=== PATIENT | female | born 1955 | race Caucasian/White ===

== ENCOUNTER → 2017-04-20 08:15 | Outpatient (CLI) | payer MEDICARE, SELFPAY ==
[2017-04-20 09:03] LABS: Basophils % 0.8 % (0.1-2.0); Eosinophils # 0.4 K/mm3 (0.0-0.4); Eosinophils % 9.9 % (0.1-12.0); Hematocrit 36.9 % (37.0-47.0); Hemoglobin 10.9 g/dL (12.2-16.2); Lymphocytes % 27.8 K/mm3 (10-50); Mean Corpuscular HGB Conc 29.5 g/dL (31.8-35.4); Mean Corpuscular Hemoglobin 24.1 pg (27.0-31.2); Mean Corpuscular Volume 81.8 fl (81-99); Mean Platelet Volume 8.9 fl (7.4-10.4); Monocytes # 0.3 K/mm3 (0.1-1.0); Monocytes % 7.5 % (1.7-9.3); Neutrophils % 53.8 % (37.0-80.0); Platelet Count 238 K/mm3 (142-424); Red Blood Count 4.51 M/mm3 (4.20-5.40); White Blood Count 3.7 K/mm3 (4.8-10.8)
[2017-04-20 10:44] LABS: Alanine Aminotransferase 67 U/L (12-78); Albumin Level 3.6 gm/dL (3.4-5.0); Albumin/Globulin Ratio 1.1 (1.1-1.8); Alkaline Phosphatase 62 U/L (46-116); Anion Gap 12.5 mEq/L (5-15); Aspartate Amino Transferase 64 U/L (15-37); Bilirubin,Total 0.3 mg/dL (0.2-1.0); Blood Urea Nitrogen 13 mg/dL (7-18); Calcium 8.8 mg/dL (8.5-10.1); Carbon Dioxide 28 mmol/L (21.0-32.0); Chloride 108 mmol/L (98-107); Cholesterol 234 mg/dL (140-200); Creatinine,Serum 0.96 mg/dL (0.55-1.02); Estimated Glomerular Filt Rate 59 ml/min (>60); GFR (African American) 71 ML/MIN (>60); Globulin 3.3 gm/dl (1.3-3.2); Glucose 134 mg/dL (74-106); HDL Cholesterol 47 mg/dL (29-89); LDL Cholesterol 165 mg/dL (0-130); Potassium 4.5 mmoL/L (3.5-5.1); Sodium 144 mmol/L (136-145); Total Protein,Serum 6.9 gm/dL (6.4-8.2); Triglycerides 108 mg/dL (30-200); VLDL Cholesterol 22 mg/dL (0-40)
== END ==
PROVIDERS: PCP Nurse Practitioner Family; Visit Provider Nurse Practitioner Family
DX: E78.5 Hyperlipidemia, unspecified (principal); N18.2 Chronic kidney disease, stage 2 (mild); D50.9 Iron deficiency anemia, unspecified
CPT/HCPCS: 36415; 80053; 80061; 85025

== ENCOUNTER 2017-05-12 10:55 | Outpatient (CLI) | payer MEDICARE, SELFPAY ==
[2017-05-12 12:27] LABS: INR 13.53 (0.9-1.1)
[2017-05-12 13:01] VITALS: BMI 34.7
== END 2017-05-12 13:15 | disposition home or self-care (01) ==
LOC: ACC 10:56 → INF 12:51
PROVIDERS: PCP Internal Medicine Adolescent Medicine; Visit Provider Internal Medicine Adolescent Medicine
DX: Z79.01 Long term (current) use of anticoagulants (principal); Z51.81 Encounter for therapeutic drug level monitoring
CPT/HCPCS: 36415; 85610; 96372

== ENCOUNTER 2017-05-15 10:49 | Outpatient (CLI) | payer MEDICARE, SELFPAY ==
[2017-05-15 15:39] LABS: PHA INR Fingerstick 1.6 (0.9-1.1)
== END 2017-05-15 16:01 | disposition home or self-care (01) ==
LOC: ACC 10:50
PROVIDERS: Family Provider Internal Medicine Adolescent Medicine; PCP Internal Medicine Adolescent Medicine; Visit Provider Internal Medicine Adolescent Medicine
DX: Z79.01 Long term (current) use of anticoagulants (principal); Z51.81 Encounter for therapeutic drug level monitoring
CPT/HCPCS: 85610; 99211; G0463

== ENCOUNTER → 2017-09-19 20:13 | Outpatient (CLI) | payer MEDICARE, SELFPAY | PROVIDERS: PCP Nurse Practitioner Family; Visit Provider Nurse Practitioner Family | DX: G47.33 Obstructive sleep apnea (adult) (pediatric) (principal); I10 Essential (primary) hypertension; R40.0 Somnolence; E66.9 Obesity, unspecified | CPT/HCPCS: 95810 ==

== ENCOUNTER 2017-11-09 08:12 | Outpatient (CLI) | payer MEDICARE, SELFPAY ==
[2017-11-09 10:35] LABS: PHA INR Fingerstick 2.1 (0.9-1.1)
== END 2017-11-09 10:38 | disposition home or self-care (01) ==
LOC: ACC 08:13
PROVIDERS: PCP Internal Medicine Adolescent Medicine; Visit Provider Internal Medicine Adolescent Medicine
DX: Z79.01 Long term (current) use of anticoagulants (principal); Z51.81 Encounter for therapeutic drug level monitoring
CPT/HCPCS: 85610; 99211; G0463

== ENCOUNTER 2017-12-06 09:25 | Outpatient (CLI) | payer MEDICARE, SELFPAY ==
[2017-12-06 10:19] LABS: PHA INR Fingerstick 2.2 (0.9-1.1)
== END 2017-12-06 10:25 | disposition home or self-care (01) ==
LOC: ACC 09:26
PROVIDERS: PCP Internal Medicine Adolescent Medicine; Visit Provider Internal Medicine Adolescent Medicine
DX: Z79.01 Long term (current) use of anticoagulants (principal)
CPT/HCPCS: 85610; 99211; G0463

== ENCOUNTER → 2017-12-20 07:55 | Outpatient (CLI) | payer MEDICARE, SELFPAY ==
[2017-12-20 08:13] LABS: Basophils # 0.1 K/mm3 (0-0.2); Basophils % 1.2 % (0.1-2.0); Eosinophils # 0.4 K/mm3 (0.0-0.4); Eosinophils % 9.3 % (0.1-12.0); Hematocrit 37.5 % (37.0-47.0); Hemoglobin 11.5 g/dL (12.2-16.2); Lymphocytes # 1.2 K/mm3 (0.7-4.5); Lymphocytes % 29.2 K/mm3 (10-50); Mean Corpuscular HGB Conc 30.5 g/dL (31.8-35.4); Mean Corpuscular Hemoglobin 24.7 pg (27.0-31.2); Mean Corpuscular Volume 80.9 fl (81-99); Mean Platelet Volume 8.8 fl (7.4-10.4); Monocytes # 0.3 K/mm3 (0.1-1.0); Monocytes % 7.8 % (1.7-9.3); Neutrophils # 2.2 K/mm3 (1.8-7.8); Neutrophils % 52.5 % (37.0-80.0); Platelet Count 247 K/mm3 (142-424); Red Blood Count 4.64 M/mm3 (4.20-5.40); Red Cell Distribution Width 15.1 % (11.5-17.5); White Blood Count 4.2 K/mm3 (4.8-10.8)
[2017-12-20 08:19] LABS: Creatinine,Urine Random 206 mg/dL (20-320)
[2017-12-20 08:34] LABS: Hemoglobin A1C 7.9 % (0.0-7.0)
[2017-12-20 10:40] LABS: Alanine Aminotransferase 73 U/L (12-78); Albumin Level 3.6 gm/dL (3.4-5.0); Albumin/Globulin Ratio 1.1 (1.1-1.8); Alkaline Phosphatase 73 U/L (46-116); Anion Gap 13.7 mEq/L (5-15); Aspartate Amino Transferase 63 U/L (15-37); Bilirubin,Total 0.2 mg/dL (0.2-1.0); Blood Urea Nitrogen 12 mg/dL (7-18); Carbon Dioxide 26 mmol/L (21.0-32.0); Chloride 109 mmol/L (98-107); Chol/HDL Ratio 5.2 (1-3.5); Cholesterol 225 mg/dL (140-200); Creatinine,Serum 1.09 mg/dL (0.55-1.02); Estimated Glomerular Filt Rate 51 ml/min (>60); Ferritin 17 ng/mL (8-388); GFR (African American) 61 ML/MIN (>60); Globulin 3.4 gm/dl (1.3-3.2); Glucose 162 mg/dL (74-106); HDL Cholesterol 43 mg/dL (29-89); LDL Cholesterol 156 mg/dL (0-130); Potassium 4.7 mmoL/L (3.5-5.1); Sodium 144 mmol/L (136-145); Triglycerides 129 mg/dL (30-200); VLDL Cholesterol 26 mg/dL (0-40)
[2017-12-22 07:03] LABS: Vitamin B12 746 pg/mL (232-1245)
[2017-12-22 07:04] LABS: Vitamin D 25 Hydroxy 29.4 ng/mL (30.0-100.0)
== END ==
PROVIDERS: PCP Nurse Practitioner Family; Visit Provider Nurse Practitioner Family
DX: E11.22 Type 2 diabetes mellitus with diabetic chronic kidney disease (principal); E78.5 Hyperlipidemia, unspecified; E53.8 Deficiency of other specified B group vitamins; N18.2 Chronic kidney disease, stage 2 (mild); D50.9 Iron deficiency anemia, unspecified
CPT/HCPCS: 36415; 80053; 80061; 82043; 82570; 82607; 82652; 82728; 83036; 85025

== ENCOUNTER → 2017-12-26 08:09 | Outpatient (CLI) | payer MEDICARE, SELFPAY ==
--- NOTE | 2017-12-26 08:15 | XR_ITS ---
XR DEXA axial skeleton HISTORY: ITS.REASON: POST MENOPAUSAL ORDERING PHYSICIAN: Sierra Jerry PATIENT AGE: 62 years COMPARISON: None FINDINGS: The BMD measured at the Right femoral neck is 0.744 g/cm squared with a T score of -2.1. This is considered Osteopenic according to the World Health Organization criteria. Fracture risk is Moderate. Treatment is advised. IMPRESSION: Osteopenia with moderate fracture risk. Treatment suggested. Recommend follow exam December 2019
--- NOTE | 2017-12-26 08:15 | FL_ITS ---
FL upper GI esophagus w/o HISTORY: Dysphagia ORDERING PHYSICIAN: Sierra Jerry PATIENT AGE: 62 years Comparison: None FINDINGS: The esophagus, stomach, and duodenum have an unremarkable appearance. There is no evidence of hiatal hernia. No ulcer or mass evident. No mucosal abnormalities apparent. There is normal peristalsis. The duodenal C-loop is nondisplaced. FLUOROSCOPY TIME : 1 minute and 53 seconds. IMPRESSION: Negative barium swallow Negative upper GI
== END ==
PROVIDERS: Family Provider Internal Medicine Adolescent Medicine; PCP Nurse Practitioner Family; Visit Provider Nurse Practitioner Family
DX: Z13.820 Encounter for screening for osteoporosis (principal); Z78.0 Asymptomatic menopausal state; Z12.31 Encounter for screening mammogram for malignant neoplasm of breast; R13.10 Dysphagia, unspecified; J45.40 Moderate persistent asthma, uncomplicated
CPT/HCPCS: 74247; 77080

== ENCOUNTER 2018-01-08 08:56 | Outpatient (CLI) | payer MEDICARE, SELFPAY ==
--- NOTE | 2018-01-08 08:58 | MM_ITS ---
MM Dig screening mamm BI w/CAD CAD Screening COMPARISON: Digital mammograms with CAD 01/06/2017 and 12/15/2015 INDICATION: There is no personal or family history of breast cancer TECHNIQUE: Standard CC and MLO images were obtained. R2 CAD reviewed. FINDINGS: The breasts are composed primarily of fat with minimal scattered fibro glandular densities throughout each breast. There is no suspicious lesion in either breast and there are no suspicious microcalcifications. IMPRESSION: Fatty breast parenchyma with no suspicious lesion seen BI-RADS Category: 1 Negative RECOMMENDED FOLLOW-UP: 1YR - 1 YEAR FOLLOW-UP (A letter has been sent to the patient regarding results of the study.)
[2018-01-08 11:38] LABS: PHA INR Fingerstick 2.3 (0.9-1.1)
== END 2018-01-08 11:41 | disposition home or self-care (01) ==
LOC: RAD 08:56 → ACC 09:24
PROVIDERS: Family Provider Internal Medicine Adolescent Medicine; PCP Nurse Practitioner Family; Visit Provider Nurse Practitioner Family
DX: Z12.31 Encounter for screening mammogram for malignant neoplasm of breast (principal); Z51.81 Encounter for therapeutic drug level monitoring; Z79.01 Long term (current) use of anticoagulants
CPT/HCPCS: 77067; 85610; 99211; G0463

== ENCOUNTER 2018-02-05 08:59 | Outpatient (CLI) | payer MEDICARE, SELFPAY | END 2018-02-05 09:57 | disposition home or self-care (01) | LOC: ACC 09:00 | PROVIDERS: PCP Nurse Practitioner Family; Visit Provider Internal Medicine Adolescent Medicine | DX: Z51.81 Encounter for therapeutic drug level monitoring (principal); Z79.01 Long term (current) use of anticoagulants; Z86.718 Personal history of other venous thrombosis and embolism | CPT/HCPCS: 85610; 99211; G0463 ==

== ENCOUNTER 2018-03-19 09:10 | Outpatient (CLI) | payer MEDICARE, SELFPAY ==
[2018-03-19 10:26] LABS: PHA INR Fingerstick 1.9 (0.9-1.1)
== END 2018-03-19 10:29 | disposition home or self-care (01) ==
LOC: ACC 09:12
PROVIDERS: PCP Internal Medicine Adolescent Medicine; Visit Provider Internal Medicine Adolescent Medicine
DX: Z51.81 Encounter for therapeutic drug level monitoring (principal); Z79.01 Long term (current) use of anticoagulants; I82.409 Acute embolism and thrombosis of unspecified deep veins of unspecified lower extremity
CPT/HCPCS: 85610; 99211; G0463

== ENCOUNTER → 2018-03-27 16:52 | Outpatient (CLI) | payer MEDICARE, SELFPAY ==
--- NOTE | 2018-03-27 | XR_ITS ---
XR chest 2V HISTORY: Cough. Bronchitis. Nonsmoker. ITS.REASON: BRONCHITIS ORDERING PHYSICIAN: Jarad Hobson MD PATIENT AGE: 62 years Technique: PA and lateral chest. COMPARISON: 01/23/2017 2 view chest and rib series., along with CT chest 02/02/2017.]. FINDINGS no acute findings. Lungs well expanded and clear. Heart johnathan and mediastinal structures appear stable satisfactory minimal calcification aortic knob. Dense calcified nodes towards base of right and left johnathan again noted and reflect over elements disease. Small calcified granuloma right midlung stable.. Also small calcified granuloma anteriorly on the lateral view stable No pneumothorax. No pleural effusion. No focal pneumonia A normal pulmonary vascularity Chest wall and T-spine appear satisfactory. IMPRESSION 1. Stable chest no active disease. Lungs clear nothing definitely acute.
== END ==
PROVIDERS: PCP Internal Medicine Adolescent Medicine; Visit Provider Internal Medicine Adolescent Medicine
DX: J40 Bronchitis, not specified as acute or chronic (principal)
CPT/HCPCS: 71046

== ENCOUNTER → 2018-04-16 09:25 | Outpatient (CLI) | payer MEDICARE, SELFPAY ==
[2018-04-16 09:53] LABS: Creatinine,Urine Random 139 mg/dL (20-320)
[2018-04-16 10:02] LABS: Basophils # 0.1 K/mm3 (0-0.2); Basophils % 0.8 % (0.1-2.0); Eosinophils # 0.6 K/mm3 (0.0-0.4); Eosinophils % 10.1 % (0.1-12.0); Hematocrit 39.8 % (37.0-47.0); Hemoglobin 12.2 g/dL (12.2-16.2); Lymphocytes # 1.5 K/mm3 (0.7-4.5); Lymphocytes % 24.5 % (10-50); Mean Corpuscular HGB Conc 30.7 g/dL (31.8-35.4); Mean Corpuscular Hemoglobin 25.5 pg (27.0-31.2); Mean Platelet Volume 8.3 fl (7.4-10.4); Monocytes # 0.4 K/mm3 (0.1-1.0); Neutrophils # 3.6 K/mm3 (1.8-7.8); Neutrophils % 57.6 % (37.0-80.0); Platelet Count 265 K/mm3 (142-424); Red Blood Count 4.79 M/mm3 (4.20-5.40); Red Cell Distribution Width 15.2 % (11.5-17.5); White Blood Count 6.2 K/mm3 (4.8-10.8)
[2018-04-16 10:04] LABS: INR 1.37 (0.9-1.1)
[2018-04-16 11:04] LABS: Hemoglobin A1C 7.3 % (0.0-7.0)
[2018-04-16 11:18] LABS: Alanine Aminotransferase 57 U/L (12-78); Albumin Level 3.7 gm/dL (3.4-5.0); Alkaline Phosphatase 66 U/L (46-116); Anion Gap 15.1 mEq/L (5-15); Aspartate Amino Transferase 46 U/L (15-37); Bilirubin,Total 0.3 mg/dL (0.2-1.0); Blood Urea Nitrogen 19 mg/dL (7-18); Calcium 9.1 mg/dL (8.5-10.1); Carbon Dioxide 28 mmol/L (21.0-32.0); Chloride 103 mmol/L (98-107); Creatinine,Serum 1.02 mg/dL (0.55-1.02); Estimated Glomerular Filt Rate 55 ml/min (>60); Ferritin 20 ng/mL (8-388); GFR (African American) 66 ML/MIN (>60); Globulin 3.6 gm/dl (1.3-3.2); Glucose 90 mg/dL (74-106); Potassium 5.1 mmoL/L (3.5-5.1); Sodium 141 mmol/L (136-145); Total Protein,Serum 7.3 gm/dL (6.4-8.2)
[2018-04-17 14:00] LABS: Vitamin B12 1172 pg/mL (232-1245); Vitamin D 25 Hydroxy 50.2 ng/mL (30.0-100.0)
[2018-04-17 14:01] LABS: Microalbumin, Urine 16.9 ug/mL (Not Estab.)
== END ==
PROVIDERS: PCP Nurse Practitioner Family; Visit Provider Internal Medicine Adolescent Medicine
DX: Z51.81 Encounter for therapeutic drug level monitoring (principal); Z79.01 Long term (current) use of anticoagulants; I82.403 Acute embolism and thrombosis of unspecified deep veins of lower extremity, bilateral; D50.9 Iron deficiency anemia, unspecified; E11.22 Type 2 diabetes mellitus with diabetic chronic kidney disease; E53.8 Deficiency of other specified B group vitamins; E55.9 Vitamin D deficiency, unspecified
CPT/HCPCS: 36415; 80053; 82043; 82570; 82607; 82652; 82728; 83036; 85025; 85610

== ENCOUNTER 2018-04-30 12:31 | Outpatient (CLI) | payer MEDICARE, SELFPAY ==
[2018-04-30 13:22] LABS: PHA INR Fingerstick 2.1 (0.9-1.1)
== END 2018-04-30 13:24 | disposition home or self-care (01) ==
LOC: ACC 12:32
PROVIDERS: PCP Internal Medicine Adolescent Medicine; Visit Provider Internal Medicine Adolescent Medicine
DX: Z51.81 Encounter for therapeutic drug level monitoring (principal); Z79.01 Long term (current) use of anticoagulants
CPT/HCPCS: 85610; 99211; G0463

== ENCOUNTER 2018-06-11 10:05 | Outpatient (CLI) | payer MEDICARE, SELFPAY ==
[2018-06-11 11:36] LABS: PHA INR Fingerstick 2.2 (0.9-1.1)
== END 2018-06-11 11:41 | disposition home or self-care (01) ==
LOC: ACC 10:06
PROVIDERS: PCP Internal Medicine Adolescent Medicine; Visit Provider Internal Medicine Adolescent Medicine
DX: Z51.81 Encounter for therapeutic drug level monitoring (principal); Z79.01 Long term (current) use of anticoagulants; I82.409 Acute embolism and thrombosis of unspecified deep veins of unspecified lower extremity
CPT/HCPCS: 85610; 99211; G0463

== ENCOUNTER 2018-12-27 13:23 | Outpatient (CLI) | payer MEDICARE, SELFPAY ==
[2018-12-27 14:44] LABS: PHA INR Fingerstick 3.3 (0.9-1.1)
== END 2018-12-27 14:50 | disposition home or self-care (01) ==
LOC: ACC 13:25
PROVIDERS: PCP Internal Medicine Adolescent Medicine; Visit Provider Internal Medicine Adolescent Medicine
DX: Z51.81 Encounter for therapeutic drug level monitoring (principal); Z79.01 Long term (current) use of anticoagulants; Z79.84 Long term (current) use of oral hypoglycemic drugs
CPT/HCPCS: 85610; 99211; G0463

== ENCOUNTER 2019-01-15 11:02 | Outpatient (CLI) | payer MEDICARE, SELFPAY ==
[2019-01-15 11:34] LABS: Basophils % 0.9 % (0.1-2.0); Eosinophils # 0.3 K/mm3 (0.0-0.4); Eosinophils % 7.5 % (0.1-12.0); Hematocrit 38.6 % (37.0-47.0); Hemoglobin 11.4 g/dL (12.2-16.2); Lymphocytes % 22.8 % (10-50); Mean Corpuscular HGB Conc 29.5 g/dL (31.8-35.4); Mean Corpuscular Hemoglobin 25.2 pg (27.0-31.2); Mean Corpuscular Volume 85.6 fl (81-99); Mean Platelet Volume 9.2 fl (7.4-10.4); Monocytes # 0.3 K/mm3 (0.1-1.0); Monocytes % 6.5 % (1.7-9.3); Neutrophils # 2.8 K/mm3 (1.8-7.8); Neutrophils % 62.2 % (37.0-80.0); Platelet Count 263 K/mm3 (142-424); Red Blood Count 4.51 M/mm3 (4.20-5.40); Red Cell Distribution Width 15.4 % (11.5-17.5); White Blood Count 4.5 K/mm3 (4.8-10.8)
[2019-01-15 11:45] LABS: INR 3.02 (0.9-1.1); Prothrombin Time 29.8 seconds (9.4-11.8)
[2019-01-15 12:31] LABS: Alanine Aminotransferase 70 U/L (12-78); Albumin Level 3.5 gm/dL (3.4-5.0); Alkaline Phosphatase 62 U/L (46-116); Anion Gap 13.3 mEq/L (5-15); Aspartate Amino Transferase 62 U/L (15-37); Bilirubin,Total 0.3 mg/dL (0.2-1.0); Blood Urea Nitrogen 10 mg/dL (7-18); Calcium 8.8 mg/dL (8.5-10.1); Carbon Dioxide 28 mmol/L (21.0-32.0); Chloride 107 mmol/L (98-107); Chol/HDL Ratio 5.4 (1-3.5); Cholesterol 226 mg/dL (140-200); Creatinine,Serum 0.95 mg/dL (0.55-1.02); Estimated Glomerular Filt Rate 59 ml/min (>60); GFR (African American) 72 ML/MIN (>60); Globulin 3.5 gm/dl (1.3-3.2); Glucose 139 mg/dL (74-106); HDL Cholesterol 42 mg/dL (29-89); LDL Cholesterol 154 mg/dL (0-130); Potassium 5.3 mmoL/L (3.5-5.1); Sodium 143 mmol/L (136-145); Triglycerides 151 mg/dL (30-200); VLDL Cholesterol 30 mg/dL (0-40)
[2019-01-15 12:33] LABS: Hemoglobin A1C 7.9 % (0.0-7.0)
[2019-01-16 11:11] LABS: Creatinine, Urine 48.3 mg/dL (Not Estab.); Microalbumin, Urine 10.8 ug/mL (Not Estab.)
[2019-01-16 11:43] LABS: Vitamin B12 1293 pg/mL (232-1245); Vitamin D 25 Hydroxy 35.1 ng/mL (30.0-100.0)
== END 2019-01-15 13:59 | disposition home or self-care (01) ==
LOC: LAB 11:03
PROVIDERS: Visit Provider Nurse Practitioner Family
DX: E11.22 Type 2 diabetes mellitus with diabetic chronic kidney disease (principal); Z79.4 Long term (current) use of insulin; Z51.81 Encounter for therapeutic drug level monitoring; Z79.01 Long term (current) use of anticoagulants; E78.5 Hyperlipidemia, unspecified; E53.8 Deficiency of other specified B group vitamins; E55.9 Vitamin D deficiency, unspecified; I10 Essential (primary) hypertension; I82.403 Acute embolism and thrombosis of unspecified deep veins of lower extremity, bilateral
CPT/HCPCS: 36415; 80053; 80061; 82043; 82570; 82607; 82652; 83036; 85025; 85610; 99211; G0463

== ENCOUNTER 2019-02-01 11:02 | Outpatient (CLI) | payer MEDICARE, SELFPAY ==
[2019-02-01 13:56] LABS: PHA INR Fingerstick 2.5 (0.9-1.1)
== END 2019-02-01 13:58 | disposition home or self-care (01) ==
LOC: ACC 11:03
PROVIDERS: PCP Internal Medicine Adolescent Medicine; Visit Provider Nurse Practitioner Family
DX: Z51.81 Encounter for therapeutic drug level monitoring (principal); Z79.01 Long term (current) use of anticoagulants
CPT/HCPCS: 85610; 99211; G0463

== ENCOUNTER → 2019-03-05 10:00 | Outpatient (CLI) | payer MEDICARE, SELFPAY ==
[2019-03-05 11:01] LABS: INR 1.95 (0.9-1.1); Prothrombin Time 19.6 seconds (9.4-11.8)
== END ==
PROVIDERS: Nurse Practitioner Family; PCP Internal Medicine Adolescent Medicine; Visit Provider Internal Medicine Adolescent Medicine
DX: Z51.81 Encounter for therapeutic drug level monitoring (principal); Z79.01 Long term (current) use of anticoagulants
CPT/HCPCS: 36415; 85610

== ENCOUNTER 2019-04-19 10:39 | Outpatient (CLI) | payer MEDICARE, SELFPAY ==
[2019-04-19 12:06] LABS: PHA INR Fingerstick 2.4 (0.9-1.1)
== END 2019-04-19 12:08 | disposition home or self-care (01) ==
LOC: ACC 10:40
PROVIDERS: PCP Nurse Practitioner Family; Visit Provider Nurse Practitioner Family
DX: Z79.01 Long term (current) use of anticoagulants (principal)
CPT/HCPCS: 85610; 99211; G0463

== ENCOUNTER → 2019-05-07 13:26 | Outpatient (CLI) | payer MEDICARE, SELFPAY ==
--- NOTE | 2019-05-07 13:31 | XR_ITS ---
PROCEDURE: XR WRIST RT MIN 3V CLINICAL INDICATION: INJURY, ACUTE PAIN Posttraumatic pain COMPARISON: No exams were available for comparison FINDINGS: No obvious fracture evident. There is mild widening of the scapholunate space which may be related to scapholunate ligamentous injury. No other significant anomalies are evident. IMPRESSION: Possible scapholunate ligamentous injury Dictated by: Gabriel Lott MD 05/07/2019 14:25 Electronically signed by Gabriel Lott MD in [place] 05/07/2019 14:25
== END ==
PROVIDERS: PCP Nurse Practitioner Family; Visit Provider Nurse Practitioner Family
DX: G89.11 Acute pain due to trauma (principal); M25.531 Pain in right wrist
CPT/HCPCS: 73110

== ENCOUNTER 2019-05-23 13:45 | Outpatient (CLI) | payer MEDICARE, SELFPAY ==
[2019-05-23 15:25] LABS: PHA INR Fingerstick 1.7 (0.9-1.1)
== END 2019-05-23 15:26 | disposition home or self-care (01) ==
LOC: ACC 13:46
PROVIDERS: PCP Internal Medicine Adolescent Medicine; Visit Provider Internal Medicine Adolescent Medicine
DX: Z51.81 Encounter for therapeutic drug level monitoring (principal); Z79.01 Long term (current) use of anticoagulants
CPT/HCPCS: 85610; 99211; G0463

== ENCOUNTER → 2019-06-05 10:17 | Outpatient (CLI) | payer MEDICARE, SELFPAY ==
--- NOTE | 2019-06-05 10:17 | MM_ITS ---
PROCEDURE: MM DIG SCREENING MAMM BI W/CAD BILATERAL DIGITAL BREAST TOMOSYNTHESIS INCLUDED Patient Age:63Y CLINICAL INDICATION: screening xmg no hormones, no new complaints. Noncontributory family history. COMPARISON: MAMM BILATERAL SCREEN from 10/16/2008 MAMM DIGITAL BILAT SCREEN from 03/31/2010 [facility] DIGITAL MAMM-SCREEN BILATERAL from 08/28/2012 [facility] DIG MAMM-SCREEN AJIT from 09/04/2014 [facility] DIG MAMM-SCREEN AJIT from 12/15/2015 [facility] DIG MAMM-SCREEN AJIT W/CAD from 01/06/2017 [facility] MM Dig screening mamm BI w/CAD from 01/08/2018 TECHNIQUE: Standard CC and MLO images were obtained. R2 CAD reviewed. Digital breast TOMOSYNTHESIS included FINDINGS: Generalized fatty replacement. Low-density breast. No new suspicious or dominant mass either breast CAD highlights no areas of significant concern. Only some faint vascular calcifications medial left breast noted and can be followed Right and left breast:. Appear stable with no new areas of skin is significant concern. IMPRESSION: Stable bilateral mammogram. No new areas of concern. Bilateral follow-up 1 year recommended. BI-RAD Category: 1 Negative FOLLOW-UP: 1YR 1 Year Follow-up (A letter has been sent to the patient regarding results of the study.) Dictated by: Clinton Abraham MD 06/11/2019 08:55 Electronically signed by Clinton Abraham MD in [place] 06/11/2019 08:55
== END ==
PROVIDERS: PCP Internal Medicine Adolescent Medicine; Visit Provider Nurse Practitioner Obstetrics & Gynecology
DX: Z12.31 Encounter for screening mammogram for malignant neoplasm of breast (principal)
CPT/HCPCS: 77063; 77067

== ENCOUNTER 2019-06-20 10:48 | Outpatient (CLI) | payer MEDICARE, SELFPAY ==
[2019-06-20 11:37] LABS: PHA INR Fingerstick 2.1 (0.9-1.1)
== END 2019-06-20 11:40 | disposition home or self-care (01) ==
LOC: ACC 10:52
PROVIDERS: PCP Nurse Practitioner Family; Visit Provider Nurse Practitioner Family
DX: Z51.81 Encounter for therapeutic drug level monitoring (principal); Z79.01 Long term (current) use of anticoagulants
CPT/HCPCS: 85610; 99211; G0463

== ENCOUNTER 2019-07-18 11:30 | Outpatient (CLI) | payer MEDICARE, SELFPAY ==
[2019-07-18 13:19] LABS: Basophils % 0.6 % (0.1-2.0); Eosinophils # 0.4 K/mm3 (0.0-0.4); Eosinophils % 7.1 % (0.1-12.0); Hematocrit 41.2 % (37.0-47.0); Hemoglobin 12.9 g/dL (12.2-16.2); Lymphocytes # 1.2 K/mm3 (0.7-4.5); Lymphocytes % 20.6 % (10-50); Mean Corpuscular HGB Conc 31.4 g/dL (31.8-35.4); Mean Corpuscular Hemoglobin 26.7 pg (27.0-31.2); Mean Corpuscular Volume 84.9 fl (81-99); Mean Platelet Volume 9.1 fl (7.4-10.4); Monocytes # 0.3 K/mm3 (0.1-1.0); Monocytes % 4.9 % (1.7-9.3); Neutrophils % 66.8 % (37.0-80.0); Platelet Count 227 K/mm3 (142-424); Red Blood Count 4.85 M/mm3 (4.20-5.40); Red Cell Distribution Width 14.3 % (11.5-17.5); White Blood Count 5.9 K/mm3 (4.8-10.8)
[2019-07-18 13:55] LABS: Hemoglobin A1C 7.1 % (4.0-6.0)
[2019-07-18 14:27] LABS: Alanine Aminotransferase 90 U/L (12-78); Albumin Level 4.3 g/dl (3.5-5.0); Albumin/Globulin Ratio 1.4 (1.1-1.8); Alkaline Phosphatase 65 U/L (38-126); Anion Gap 14.8 mEq/L (5-15); Aspartate Amino Transferase 116 U/L (14-36); Bilirubin,Total 0.3 mg/dl (0.2-1.3); Blood Urea Nitrogen 15 mg/dl (7-17); Carbon Dioxide 23 mmol/L (22.0-30.0); Chloride 104 mmol/L (98-107); Chol/HDL Ratio 5.6 (1-3.5); Cholesterol 230 mg/dl (140-200); Estimated Glomerular Filt Rate 63 ml/min (>60); GFR (African American) 76 ML/MIN (>60); Globulin 3.1 g/dL (1.3-3.2); Glucose 144 mg/dl (74-100); HDL Cholesterol 41 mg/dl (40-60); Potassium 4.8 mmoL/L (3.5-5.1); Sodium 137 mmol/L (136-145); Total Protein,Serum 7.4 g/dl (6.3-8.2); Triglycerides 171 mg/dl (30-150); VLDL Cholesterol 34 mg/dL (0-40)
[2019-07-18 14:38] LABS: Direct LDL Cholesterol 156.71 mg/dL (100-129)
[2019-07-19 11:57] LABS: Vitamin B12 720 pg/mL (232-1245); Vitamin D 25 Hydroxy 47.8 ng/mL (30.0-100.0)
== END 2019-07-18 17:12 | disposition home or self-care (01) ==
PROVIDERS: PCP Nurse Practitioner Family; Visit Provider Nurse Practitioner Family
DX: R10.32 Left lower quadrant pain (principal); E53.8 Deficiency of other specified B group vitamins; E55.9 Vitamin D deficiency, unspecified; E11.22 Type 2 diabetes mellitus with diabetic chronic kidney disease; Z79.4 Long term (current) use of insulin; Z79.84 Long term (current) use of oral hypoglycemic drugs; Z51.81 Encounter for therapeutic drug level monitoring; Z79.01 Long term (current) use of anticoagulants
CPT/HCPCS: 36415; 80053; 80061; 82607; 82652; 83036; 85025; 85610; 99211; G0463

== ENCOUNTER → 2019-07-23 09:25 | Outpatient (CLI) | payer MEDICARE, SELFPAY ==
--- NOTE | 2019-07-23 09:27 | CT_ITS ---
PROCEDURE: CT ABDOMEN PELVIS WO/W CON CLINICAL INDICATION: LLQ Left lower quadrant pain COMPARISON: No exams were available for comparison TECHNIQUE: IV Contrast: 75ML OPTIRAY 350 Oral Contrast none Axial images obtained with sagittal and coronal reformats. All CT scans at the facility use one or more dose reduction, viz: automated exposure control, ma/kV adjustment per patient size (including targeted exams where dose is matched to indication, i.e. head), or iterative reconstruction technique. FINDINGS: LOWER THORAX: Small pneumatocele is present in the right lung base posteriorly nonspecific. ABDOMEN & PELVIS: There is eventration of the right hemidiaphragm containing a portion of the hepatic dome. No focal liver lesion is evident. There has been a prior cholecystectomy. The spleen, adrenal glands, and pancreas are unremarkable. The wall the stomach appears thickened but could be due to the nondistended state There is a 6 mm stone in the lower pole of the left kidney. No hydronephrosis is evident. Hypodensity is present in the upper pole of the left kidney laterally at 8 mm and may be due to small cyst which may be confirmed with ultrasound. No ureteral calculi. Reported prior appendectomy. There are few specks of hyperdensity noted in the cecum nonspecific and may be due to ingested material. No intestinal obstruction or free air. No abdominal wall hernias. Prominent collateral vessels are present in the lower pelvic region anteriorly within the abdominal wall. No pelvic mass or abnormal fluid collection. The there is a soft tissue density in the left inguinal region which is oval in nature and measures 2.6 cm and may be related to an unopacified varix or an enlarged lymph node. This is adjacent to an abdominal wall varix. No acute bony findings. IMPRESSION: 1. No acute abdominal or pelvic findings. 2. Nonobstructing left nephrolithiasis. 3. Abdominal wall varices noted in the lower pelvic region with 2.6 cm nodular opacity in the left inguinal area which could be due to of varix or enlarged lymph node Dictated by: Gabriel Lott MD 07/24/2019 11:19 Electronically signed by Gabriel Lott MD in [place] 07/24/2019 11:19
== END ==
PROVIDERS: PCP Nurse Practitioner Family; Visit Provider Nurse Practitioner Family
DX: R10.32 Left lower quadrant pain (principal)
CPT/HCPCS: 74178; Q9967

== ENCOUNTER 2019-08-22 10:35 | Outpatient (CLI) | payer MEDICARE, SELFPAY ==
[2019-08-22 11:29] LABS: PHA INR Fingerstick 2.5 (0.9-1.1)
== END 2019-08-22 11:51 | disposition home or self-care (01) ==
LOC: ACC 10:36
PROVIDERS: PCP Nurse Practitioner Family; Visit Provider Nurse Practitioner Family
DX: Z79.01 Long term (current) use of anticoagulants (principal)
CPT/HCPCS: 85610; 99211; G0463

== ENCOUNTER → 2019-08-22 12:16 | Outpatient (CLI) | payer MEDICARE, SELFPAY ==
[2019-08-22 12:35] LABS: Basophils # 0.1 K/mm3 (0-0.2); Eosinophils # 0.3 K/mm3 (0.0-0.4); Eosinophils % 6.5 % (0.1-12.0); Hemoglobin 12.7 g/dL (12.2-16.2); Lymphocytes # 1.1 K/mm3 (0.7-4.5); Lymphocytes % 21.9 % (10-50); Mean Corpuscular HGB Conc 31.7 g/dL (31.8-35.4); Mean Corpuscular Hemoglobin 27.1 pg (27.0-31.2); Mean Corpuscular Volume 85.5 fl (81-99); Mean Platelet Volume 9.3 fl (7.4-10.4); Monocytes # 0.4 K/mm3 (0.1-1.0); Monocytes % 7.2 % (1.7-9.3); Neutrophils # 3.3 K/mm3 (1.8-7.8); Neutrophils % 63.4 % (37.0-80.0); Platelet Count 242 K/mm3 (142-424); Red Blood Count 4.68 M/mm3 (4.20-5.40); Red Cell Distribution Width 14.9 % (11.5-17.5); White Blood Count 5.2 K/mm3 (4.8-10.8)
[2019-08-22 13:18] LABS: Alanine Aminotransferase 55 U/L (12-78); Albumin/Globulin Ratio 1.3 (1.1-1.8); Alkaline Phosphatase 65 U/L (38-126); Amylase 35 U/L (30-110); Anion Gap 10.6 mEq/L (5-15); Aspartate Amino Transferase 72 U/L (14-36); Bilirubin,Total 0.2 mg/dl (0.2-1.3); Blood Urea Nitrogen 13 mg/dl (7-17); Calcium 9.4 mg/dl (8.4-10.2); Carbon Dioxide 26 mmol/L (22.0-30.0); Chloride 104 mmol/L (98-107); Estimated Glomerular Filt Rate 72 ml/min (>60); GFR (African American) 87 ML/MIN (>60); Globulin 3.1 g/dL (1.3-3.2); Glucose 229 mg/dl (74-100); Lipase 137 U/L (23-300); Potassium 4.6 mmoL/L (3.5-5.1); Sodium 136 mmol/L (136-145); Total Protein,Serum 7.1 g/dl (6.3-8.2)
== END ==
PROVIDERS: Visit Provider Nurse Practitioner Family
DX: R10.9 Unspecified abdominal pain (principal)
CPT/HCPCS: 36415; 80053; 82150; 83690; 85025; 85610; 99211; G0463

== ENCOUNTER 2019-10-03 11:01 | Outpatient (CLI) | payer MEDICARE, SELFPAY ==
[2019-10-03 15:16] LABS: PHA INR Fingerstick 2.3 (0.9-1.1)
== END 2019-10-03 15:29 | disposition home or self-care (01) ==
LOC: ACC 11:02
PROVIDERS: PCP Nurse Practitioner Family; Visit Provider Nurse Practitioner Family
DX: Z51.81 Encounter for therapeutic drug level monitoring (principal); Z79.01 Long term (current) use of anticoagulants
CPT/HCPCS: 85610; 99211; G0463

== ENCOUNTER 2019-11-14 11:13 | Outpatient (CLI) | payer MEDICARE, SELFPAY ==
[2019-11-14 14:21] LABS: PHA INR Fingerstick 2.1 (0.9-1.1)
== END 2019-11-14 14:24 | disposition home or self-care (01) ==
LOC: ACC 11:14
PROVIDERS: PCP Nurse Practitioner Family; Visit Provider Nurse Practitioner Family
DX: Z51.81 Encounter for therapeutic drug level monitoring (principal); Z79.01 Long term (current) use of anticoagulants
CPT/HCPCS: 85610; 99211; G0463

== ENCOUNTER 2019-12-26 07:49 | Outpatient (CLI) | payer MEDICARE, SELFPAY ==
[2019-12-26 13:25] LABS: PHA INR Fingerstick 1.9 (0.9-1.1)
== END 2019-12-26 13:27 | disposition home or self-care (01) ==
LOC: ACC 07:52
PROVIDERS: Internal Medicine Adolescent Medicine; PCP Nurse Practitioner Family; Visit Provider Nurse Practitioner Family
DX: Z51.81 Encounter for therapeutic drug level monitoring (principal); Z79.01 Long term (current) use of anticoagulants
CPT/HCPCS: 85610; 99211; G0463

== ENCOUNTER → 2019-12-30 09:50 | Outpatient (CLI) | payer MEDICARE, SELFPAY ==
--- NOTE | 2019-12-30 09:54 | XR_ITS ---
PROCEDURE: XR DEXA AXIAL SKELETON CLINICAL HISTORY: POST-MENOPAUSAL COMPARISON: CR DEXAAX XR DEXA axial skeleton from 12/26/2017 FINDINGS: The right hip BMD is 0.481 with a T-score of -3.3. The left hip BMD is 0.575 with a T-score of -2.5. The lumbar spine BMD is 0.892 with a T-score of -1.4. Previously the lowest density was in the right femoral neck with T-score -2.1. The bone mineral density has decreased compared to the previous exam IMPRESSION: This patient is considered osteoporotic according to the World Health Organization criteria. Fracture risk is high. Treatment is advised. Based on these results a follow-up exam is recommended in 1 year. Dictated by: Gabriel Lott MD 12/31/2019 12:00 Gabriel Lott MD in [place] 12/31/2019 12:00
== END ==
PROVIDERS: PCP Nurse Practitioner Family; Visit Provider Nurse Practitioner Family
DX: Z13.820 Encounter for screening for osteoporosis (principal); Z78.0 Asymptomatic menopausal state
CPT/HCPCS: 77080

== ENCOUNTER 2020-02-04 08:47 | Outpatient (CLI) | payer MEDICARE, SELFPAY ==
[2020-02-04 09:31] LABS: Basophils % 0.7 % (0.1-2.0); Eosinophils # 0.5 K/mm3 (0.0-0.4); Hematocrit 44.2 % (37.0-47.0); Hemoglobin 14.1 g/dL (12.2-16.2); Lymphocytes # 1.6 K/mm3 (0.7-4.5); Lymphocytes % 25.5 % (10-50); Mean Corpuscular Hemoglobin 28.7 pg (27.0-31.2); Mean Corpuscular Volume 89.6 fl (81-99); Mean Platelet Volume 8.8 fl (7.4-10.4); Monocytes # 0.6 K/mm3 (0.1-1.0); Monocytes % 9.1 % (1.7-9.3); Neutrophils # 3.5 K/mm3 (1.8-7.8); Neutrophils % 56.8 % (37.0-80.0); Platelet Count 254 K/mm3 (142-424); Red Blood Count 4.93 M/mm3 (4.20-5.40); Red Cell Distribution Width 13.8 % (11.5-17.5); White Blood Count 6.2 K/mm3 (4.8-10.8)
[2020-02-04 10:03] LABS: INR 1.59 (0.9-1.1); Prothrombin Time 16.9 seconds (9.4-11.8)
[2020-02-04 10:05] VITALS: BP 153/80; PULSE 74; RESP 18; TEMP 36.3; O2SAT 97
[2020-02-04 10:46] LABS: Creatinine,Urine Random 97 mg/dL (Not Estab.)
[2020-02-04 10:47] LABS: Microalbumin < 6.000 mg/L (0-16.7)
[2020-02-04 10:50] LABS: Hemoglobin A1C 7.2 % (4.0-6.0)
[2020-02-04 11:04] LABS: Chloride 102 mmol/L (98-107)
[2020-02-04 11:05] LABS: Potassium 5.1 mmoL/L (3.5-5.1); Sodium 139 mmol/L (136-145)
[2020-02-04 11:07] LABS: Alanine Aminotransferase 80 U/L (12-78); Alkaline Phosphatase 63 U/L (38-126); Anion Gap 14.1 mEq/L (5-15); Aspartate Amino Transferase 76 U/L (14-36); Bilirubin,Total 0.5 mg/dl (0.2-1.3); Blood Urea Nitrogen 20 mg/dl (7-17); Carbon Dioxide 28 mmol/L (22.0-30.0); Cholesterol 246 mg/dl (140-200); Estimated Glomerular Filt Rate 56 ml/min (>60); GFR (African American) 67 ML/MIN (>60); Triglycerides 188 mg/dl (30-150); VLDL Cholesterol 38 mg/dL (0-40)
[2020-02-04 11:08] LABS: Albumin Level 4.5 g/dl (3.5-5.0); Albumin/Globulin Ratio 1.5 (1.1-1.8); Calcium 9.8 mg/dl (8.4-10.2); Chol/HDL Ratio 5.3 (1-3.5); Glucose 140 mg/dl (74-100); HDL Cholesterol 46 mg/dl (40-60); Total Protein,Serum 7.5 g/dl (6.3-8.2)
--- NOTE | 2020-02-04 16:10 | HMH.PHAINT ---
VENIPUNCTURE INR 1.59. RECOMMENDED INCREASING DOSE TO 10 MG MON/FRI; 8 MG ON MON/MON/MON/MON/SAT.
== END 2020-02-04 10:05 | disposition home or self-care (01) ==
LOC: INF 08:48
PROVIDERS: Nurse Practitioner Family; Visit Provider Internal Medicine Adolescent Medicine
DX: E11.22 Type 2 diabetes mellitus with diabetic chronic kidney disease (principal); E78.5 Hyperlipidemia, unspecified; N18.2 Chronic kidney disease, stage 2 (mild); I82.403 Acute embolism and thrombosis of unspecified deep veins of lower extremity, bilateral; Z51.81 Encounter for therapeutic drug level monitoring; Z79.01 Long term (current) use of anticoagulants; M81.0 Age-related osteoporosis without current pathological fracture
CPT/HCPCS: 36415; 80053; 80061; 82043; 82570; 83036; 85025; 85610; 96372; J0897

== ENCOUNTER 2020-03-09 10:31 | Outpatient (CLI) | payer MEDICARE, SELFPAY ==
[2020-03-09 13:17] LABS: PHA INR Fingerstick 1.8 (0.9-1.1)
== END 2020-03-09 13:24 | disposition home or self-care (01) ==
LOC: ACC 10:33
PROVIDERS: PCP Internal Medicine Adolescent Medicine; Visit Provider Nurse Practitioner Family
DX: Z51.81 Encounter for therapeutic drug level monitoring (principal); Z79.01 Long term (current) use of anticoagulants
CPT/HCPCS: 85610; 99211; G0463

== ENCOUNTER 2020-04-20 10:09 | Outpatient (CLI) | payer MEDICARE, SELFPAY ==
[2020-04-20 15:40] LABS: PHA INR Fingerstick 2.4 (0.9-1.1)
== END 2020-04-20 15:42 | disposition home or self-care (01) ==
LOC: ACC 10:12
PROVIDERS: PCP Nurse Practitioner Family; Visit Provider Internal Medicine Adolescent Medicine
DX: Z51.81 Encounter for therapeutic drug level monitoring (principal); Z79.01 Long term (current) use of anticoagulants
CPT/HCPCS: 85610; 99211; G0463

== ENCOUNTER 2020-06-02 10:56 | Outpatient (CLI) | payer MEDICARE, SELFPAY ==
[2020-06-02 16:28] LABS: PHA INR Fingerstick 2.3 (0.9-1.1)
== END 2020-06-02 16:31 | disposition home or self-care (01) ==
LOC: ACC 10:57
PROVIDERS: Visit Provider Nurse Practitioner Family
DX: Z51.81 Encounter for therapeutic drug level monitoring (principal); Z79.01 Long term (current) use of anticoagulants
CPT/HCPCS: 85610; 99211; G0463

== ENCOUNTER → 2020-06-11 13:06 | Outpatient (CLI) | payer MEDICARE, SELFPAY ==
--- NOTE | 2020-06-11 13:17 | XR_ITS ---
PROCEDURE: XR SACROILIAC JOINT BI MIN 3V CLINICAL INDICATION: ARTHROPATHY OF RT SI JOINT Pain COMPARISON: No exams were available for comparison FINDINGS: No fracture or dislocation. No lytic or blastic change. There is normal mineralization. There are mild osteoarthritic changes of the hips. Soft tissue calcification noted along the right lateral iliac region. There is also some faint calcification projecting over the right ilium IMPRESSION: Negative SI joints. Mild osteoarthritic changes of the hips. Dictated by: Gabriel Lott MD 06/11/2020 14:05 Gabriel Lott MD in [place] 06/11/2020 14:05
== END ==
PROVIDERS: PCP Nurse Practitioner Family; Visit Provider Nurse Practitioner Family
DX: M47.818 Spondylosis without myelopathy or radiculopathy, sacral and sacrococcygeal region (principal)
CPT/HCPCS: 72202

== ENCOUNTER → 2020-07-14 08:57 | Outpatient (CLI) | payer MEDICARE, SELFPAY ==
[2020-07-14 09:38] LABS: Basophils % 0.7 % (0.1-2.0); Eosinophils # 0.6 K/mm3 (0.0-0.4); Eosinophils % 11.2 % (0.1-12.0); Hematocrit 44.2 % (37.0-47.0); Hemoglobin 13.9 g/dL (12.2-16.2); Lymphocytes # 1.3 K/mm3 (0.7-4.5); Lymphocytes % 22.8 % (10-50); Mean Corpuscular HGB Conc 31.6 g/dL (31.8-35.4); Mean Corpuscular Volume 88.7 fl (81-99); Mean Platelet Volume 8.7 fl (7.4-10.4); Monocytes # 0.3 K/mm3 (0.1-1.0); Monocytes % 6.3 % (1.7-9.3); Neutrophils # 3.2 K/mm3 (1.8-7.8); Neutrophils % 58.9 % (37.0-80.0); Platelet Count 244 K/mm3 (142-424); Red Blood Count 4.98 M/mm3 (4.20-5.40); Red Cell Distribution Width 13.1 % (11.5-17.5); White Blood Count 5.5 K/mm3 (4.8-10.8)
[2020-07-14 09:52] LABS: Hemoglobin A1C 7.7 % (4.0-6.0)
[2020-07-14 10:20] VITALS: PULSE 71; PULSE 74
[2020-07-14 10:21] LABS: INR 1.65 (0.9-1.1); Prothrombin Time 18.8 seconds (10.1-12.5)
[2020-07-14 10:50] LABS: Chloride 106 mmol/L (98-107); Potassium 5.3 mmoL/L (3.5-5.1); Sodium 140 mmol/L (136-145)
[2020-07-14 10:53] LABS: Alanine Aminotransferase 74 U/L (12-78); Albumin Level 4.7 g/dl (3.5-5.0); Albumin/Globulin Ratio 1.6 (1.1-1.8); Alkaline Phosphatase 61 U/L (38-126); Anion Gap 13.3 mEq/L (5-15); Aspartate Amino Transferase 72 U/L (14-36); Bilirubin,Total 0.5 mg/dl (0.2-1.3); Blood Urea Nitrogen 17 mg/dl (7-17); Calcium 9.9 mg/dl (8.4-10.2); Carbon Dioxide 26 mmol/L (22.0-30.0); Cholesterol 249 mg/dl (140-200); Estimated Glomerular Filt Rate 56 ml/min (>60); GFR (African American) 67 ML/MIN (>60); Globulin 2.9 g/dL (1.3-3.2); Glucose 161 mg/dl (74-100); Total Protein,Serum 7.6 g/dl (6.3-8.2); Triglycerides 200 mg/dl (30-150); VLDL Cholesterol 40 mg/dL (0-40)
[2020-07-14 10:54] LABS: HDL Cholesterol 50 mg/dl (40-60)
[2020-07-14 11:04] LABS: Direct LDL Cholesterol 150.08 mg/dL (100-129)
[2020-07-14 11:09] LABS: 25-OH Vitamin D, Total 66.7 ng/mL (30-100)
[2020-07-14 11:23] LABS: Thyroid Stimulating Hormone 3.12 uIU/mL (0.465-4.68)
[2020-07-14 12:11] LABS: Vitamin B12 428 pg/mL (239-931)
== END ==
PROVIDERS: Nurse Practitioner Family; PCP Nurse Practitioner Family; Visit Provider Nurse Practitioner Family
DX: R06.02 Shortness of breath (principal); E11.22 Type 2 diabetes mellitus with diabetic chronic kidney disease; E78.5 Hyperlipidemia, unspecified; E55.9 Vitamin D deficiency, unspecified; E53.8 Deficiency of other specified B group vitamins; D50.9 Iron deficiency anemia, unspecified; R53.83 Other fatigue; Z51.81 Encounter for therapeutic drug level monitoring; Z79.01 Long term (current) use of anticoagulants; Z79.84 Long term (current) use of oral hypoglycemic drugs; Z86.718 Personal history of other venous thrombosis and embolism
CPT/HCPCS: 36415; 80053; 80061; 82306; 82607; 83036; 84443; 85025; 85610; 94060; 94618; 94640; 94726; 94729

== ENCOUNTER → 2020-07-21 10:37 | Outpatient (CLI) | payer MEDICARE, SELFPAY ==
--- NOTE | 2020-07-21 10:44 | CA_ITS ---
APPROVED REPORT EXAM: Comprehensive 2D, Doppler, and color-flow Echocardiogram Employment Program Representative: Kristy Gifford CRT Ht: 5 ft 6 in Wt: 216lbs BSA: 2.07 BP: 110/74 mmHg Indications: Shortness of Breath, Diabetes, Obesity, Palpitations, Fatigue, Hyperlipidemia, Hypertension/HDD 2D Dimensions LVOT 1.92 cm (M/F) 1.5-2.5 LA Volume 40.90 mL LA Volume Index 19.80 mL/m2 (M/F) 16-34 M-Mode Dimensions RVDd 2.20 cm (0.9-2.6) LA Diam 3.57 cm (1.9-4.0) LVDd 5.02 cm (3.5-5.7) Ao Diam 3.68 cm (2.0-3.7) LVDs 3.62 cm (3.5-5.7) IVSd 1.13 cm (0.6-1.1) PWd 0.93 cm (0.6-1.1) EF (Teich) 53.70% FS 27.90% EDV (Teich) 119.30 mL TAPSE 2.65 (<1.7) ESV (Teich) 55.20 mL LV Diastology E Decel Time 183.00 (160-240 msec) E/A Ratio 0.70 MED E' 7.30 (< 7 cm/sec) MED A' 9.40 cm/s E'/MED E' Ratio 9.63 (>14) LAT E' 6.00 (<10 cm/sec) LAT A' 10.70 cm/s E/LAT E' Ratio 11.72 (>14) Aortic Valve AI PHT 549.00 ms AO Peak GR. 5.90 mmHg Mitral Valve MV A Velocity 101.00 (40-130 cm/s) E/A Ratio 0.70 MV Decel. Time 183.00 (160-240 ms) Pulmonary Valve PV Peak Velocity 57.00 (50-150 cm/s) Tricuspid Valve TR P. Velocity 126.00 cm/s RAP Estimate 10.00 mmHg RVSP 16.30 mmHg Left Ventricle Left atrium is mildly enlarged, left ventricle is normal size, mild concentric left ventricular hypertrophy, visually estimated ejection fraction 55% with no regional wall motion abnormality, grade 1 diastolic dysfunction seen without tissue Doppler evidence of raise left atrial pressure. Right Ventricle Right atrium and right ventricle are normal size and contractility. Aortic Valve Aortic valve is thickened and calcified without Doppler evidence of aortic stenosis, there is trace aortic insufficiency. Mitral Valve Mitral valve is minimally thickened, there is mild mitral regurgitation. Tricuspid Valve Tricuspid grossly normal, there is mild tricuspid regurgitation, tricuspid regurgitation jet velocity is inadequate for calculation of the right ventricular systolic pressure. Pulmonic Valve Pulmonic valve is poorly visualized. Great Vessels Aortic root is normal size. Pericardium No significant pericardial effusion noted. Conclusion 1. Mildly enlarged left atrium, normal left ventricular size, mild concentric left ventricular hypertrophy, visually estimated ejection fraction 55% with no regional wall motion abnormality, grade 1 diastolic dysfunction seen without tissue Doppler evidence of raise left atrial pressure. 2. Mild mitral and tricuspid regurgitation. 3. Minimally thickened and calcified aortic valve without aortic stenosis, there is trace aortic insufficiency. 4. No significant pericardial effusion noted. Electronically signed by : Raymundo Schulz, 07/21/2020 21:31:45
== END ==
PROVIDERS: PCP Internal Medicine Adolescent Medicine; Visit Provider Internal Medicine Adolescent Medicine
DX: R06.02 Shortness of breath (principal)
CPT/HCPCS: 93306

== ENCOUNTER 2020-07-23 13:55 | Outpatient (CLI) | payer MEDICARE, SELFPAY ==
[2020-07-23 14:37] LABS: PHA INR Fingerstick 2.1 (0.9-1.1)
== END 2020-07-23 14:42 | disposition home or self-care (01) ==
LOC: ACC 13:57
PROVIDERS: Internal Medicine Adolescent Medicine; PCP Nurse Practitioner Family; Visit Provider Nurse Practitioner Family
DX: Z51.81 Encounter for therapeutic drug level monitoring (principal); Z79.01 Long term (current) use of anticoagulants
CPT/HCPCS: 85610; 99211; G0463

== ENCOUNTER 2020-08-03 12:12 | Outpatient (CLI) | payer MEDICARE, SELFPAY ==
--- NOTE | 2020-08-03 12:17 | XR_ITS ---
PROCEDURE: XR HIP RT 2-3V W/PELVIS CLINICAL INDICATION: DORSALGIA, PAIN IN RT LEG COMPARISON: CR XR PELVIS MIN 3V from 04/19/[address] ABDOMEN PELVIS WO/W CON from 07/23/2019 FINDINGS: No fracture or dislocation. There are mild osteoarthritic changes of both hips. No lytic or blastic change. Faint lucency is noted in the left femoral head nonspecific questionable clinical significance measuring approximately 9 mm. Scattered small foci are present in the right lower quadrant and may be due to ingested material. IMPRESSION: Mild osteoarthritic changes of the hips Dictated by: Gabriel Lott MD 08/03/2020 13:30 Gabriel Lott MD in [place] 08/03/2020 13:30
--- NOTE | 2020-08-03 12:17 | XR_ITS ---
PROCEDURE: XR LUMBAR SPINE MIN 4V CLINICAL INDICATION: DORSALGIA, PAIN IN RT LEG COMPARISON: CT CT ABDOMEN PELVIS WO/W CON from 07/23/2019 FINDINGS: Minimal lumbar curvature convex right. Normal alignment. Mild degenerative disc disease L4-5 and L5-S1. Mild facet osteoarthritic change L4-5 and L5-S1. No fracture or dislocation. No lytic or blastic change. Mild degenerative change SI joints. 4 mm stone overlies the lower pole of the left kidney. Nonspecific right upper quadrant calcification noted lying out of the plane of the right kidney consistent with a calcification along the posterior aspect of the liver as seen on prior CT scan. Other findings:Nonspecific stippled calcification right lower quadrant. CT of the abdomen without contrast may provide further evaluation. IMPRESSION: Degenerative disc disease with facet arthritic changes at L4-5 and L5-S1. Left nephrolithiasis. Nonspecific stippled calcification right lower quadrant which may be better evaluated with unenhanced CT scan. Dictated by: Gabriel Lott MD 08/04/2020 05:42 Gabriel Lott MD in [place] 08/04/2020 05:42
[2020-08-03 13:10] VITALS: BP 143/73; PULSE 70; RESP 18; TEMP 36.2; O2SAT 97
== END 2020-08-03 13:30 | disposition home or self-care (01) ==
LOC: INF 12:14
PROVIDERS: PCP Internal Medicine Adolescent Medicine; Visit Provider Internal Medicine Adolescent Medicine
DX: M54.9 Dorsalgia, unspecified (principal); M54.5 Low back pain; M79.604 Pain in right leg; M81.0 Age-related osteoporosis without current pathological fracture
CPT/HCPCS: 72110; 73502; 96372; J0897

== ENCOUNTER → 2020-08-13 13:22 | Outpatient (CLI) | payer MEDICARE, SELFPAY | PROVIDERS: PCP Nurse Practitioner Family; Visit Provider Nurse Practitioner Family | DX: R42 Dizziness and giddiness (principal) | CPT/HCPCS: 93270 ==

== ENCOUNTER → 2020-08-25 12:50 | Outpatient (CLI) | payer MEDICARE, SELFPAY ==
--- NOTE | 2020-08-25 12:54 | CA_ITS ---
APPROVED REPORT Shrimp Peeling Machine Tender: Mechelle Nguyen RVT Laterality: Bilateral Study Quality: Good Risk Factors Hypertension: Hyperlipidemia Diabetes Doppler Spectral Velocity Analysis ECA (R) 95.10/12.60 cm/s ECA (L) 174.00/15.70 cm/s dICA (R) 83.30/23.60 cm/s dICA (L) 101.00/27.50 cm/s Alana (R) 77.00/21.20 cm/s Alana (L) 111.00/29.10 cm/s pICA (R) 85.60/16.50 cm/s pICA (L) 94.30/22.00 cm/s dCCA (R) 67.60/12.60 cm/s dCCA (L) 90.40/18.10 cm/s pCCA (R) 91.90/16.50 cm/s pCCA (L) 91.10/16.50 cm/s Vert (R) 66.00/17.30 cm/s Vert (L) 45.60/14.10 cm/s ICA/CCA 1.27 ICA/CCA 1.23 Findings Study suggests less than 20% stenosis of the bilateral internal cartoid arteries. Antegrade flow seen bilateral vertebral arteries. Conclusion Study suggests less than 20% stenosis of the bilateral internal cartoid arteries. Antegrade flow seen bilateral vertebral arteries. Electronically signed by : Gabriel Lott MD 08/25/2020 16:28:09
[2020-08-25 16:27] LABS: Basophils % 0.6 % (0.1-2.0); Eosinophils # 0.3 K/mm3 (0.0-0.4); Eosinophils % 5.4 % (0.1-12.0); Hematocrit 38.8 % (37.0-47.0); Hemoglobin 12.6 g/dL (12.2-16.2); Lymphocytes # 1.3 K/mm3 (0.7-4.5); Lymphocytes % 25.3 % (10-50); Mean Corpuscular HGB Conc 32.6 g/dL (31.8-35.4); Mean Corpuscular Hemoglobin 28.4 pg (27.0-31.2); Mean Corpuscular Volume 87.1 fl (81-99); Mean Platelet Volume 9.1 fl (7.4-10.4); Monocytes # 0.3 K/mm3 (0.1-1.0); Monocytes % 6.5 % (1.7-9.3); Neutrophils # 3.2 K/mm3 (1.8-7.8); Neutrophils % 62.1 % (37.0-80.0); Platelet Count 217 K/mm3 (142-424); Red Blood Count 4.45 M/mm3 (4.20-5.40); Red Cell Distribution Width 13.5 % (11.5-17.5); White Blood Count 5.2 K/mm3 (4.8-10.8)
[2020-09-05 11:54] LABS: Immunoglobulin E, Total 34; Strongyloides IgG Antibody NEGATIVE
[2020-09-05 11:55] LABS: D001-IgE D pteronyssinus <.10; D002-IgE D farinae <.10; E001-IgE Cat Dander <.10; E005-IgE Dog Dander <.10; G002-IgE Bermuda Grass <.10; G006-IgE Timothy Grass <.10; I006-IgE Cockroach, German <.10; M001-IgE Penicillium chrysogen <.10; M002-IgE Cladosporium herbarum <.10; M003-IgE Aspergillus fumigatus <.10; M006-IgE Alternaria alternata <.10; T001-IgE Maple/Box Elder <.10; T003-IgE Common Silver Birch <.10; T006-IgE Cedar, Mountain <.10; T007-IgE Oak, White <.10; T008-IgE Elm, American <.10
[2020-09-05 11:56] LABS: T015-IgE Ash, White <.10; T070-IgE White Mulberry <.10; W001-IgE Ragweed, Short <.10; W011-IgE Thistle, Russian <.10; W014-IgE Pigweed, Common <.10
[2020-09-05 11:57] LABS: E072-IgE Mouse Urine <.10; W018-IgE Sheep Sorrel <.10
== END ==
PROVIDERS: Internal Medicine Pulmonary Disease; PCP Nurse Practitioner Family; Visit Provider Nurse Practitioner Family
DX: R42 Dizziness and giddiness (principal); J45.909 Unspecified asthma, uncomplicated
CPT/HCPCS: 36415; 82785; 85025; 86003; 86682; 93880

== ENCOUNTER → 2020-08-25 15:48 | Outpatient (CLI) | payer MEDICARE, SELFPAY | PROVIDERS: Visit Provider Internal Medicine Pulmonary Disease | DX: J45.909 Unspecified asthma, uncomplicated (principal) | CPT/HCPCS: 36415; 82785; 85025; 86003; 86682 ==

== ENCOUNTER 2020-09-03 10:25 | Outpatient (CLI) | payer MEDICARE, SELFPAY ==
[2020-09-03 14:41] LABS: PHA INR Fingerstick 2.2 (0.9-1.1)
== END 2020-09-03 14:45 | disposition home or self-care (01) ==
LOC: ACC 10:26
PROVIDERS: PCP Internal Medicine Adolescent Medicine; Visit Provider Internal Medicine Adolescent Medicine
DX: Z79.01 Long term (current) use of anticoagulants (principal)
CPT/HCPCS: 85610; 99211; G0463

== ENCOUNTER 2020-10-12 11:55 | Outpatient (CLI) | payer MEDICARE, SELFPAY ==
[2020-10-12 14:09] LABS: PHA INR Fingerstick 2.7 (0.9-1.1)
== END 2020-10-12 14:24 | disposition home or self-care (01) ==
LOC: ACC 11:56
PROVIDERS: PCP Nurse Practitioner Family; Visit Provider Nurse Practitioner Family
DX: Z51.81 Encounter for therapeutic drug level monitoring (principal); Z79.01 Long term (current) use of anticoagulants
CPT/HCPCS: 85610; 99211; G0463

== ENCOUNTER 2020-11-14 07:57 | Outpatient (CLI) | payer MEDICARE, SELFPAY ==
[2020-11-14 08:08] VITALS: BP 154/75; PULSE 81; RESP 20; TEMP 37.6; O2SAT 93; BMI 43.0
[2020-11-14 08:30] VITALS: BP 129/62; PULSE 91; O2SAT 95
[2020-11-14 08:49] LABS: Prothrombin Time 15.4 seconds (10.1-12.5)
--- NOTE | 2020-11-14 08:54 | PC.NURSE ---
Infusion started via 22G right cephalic, pt resting comfortably in bed, provided water. Will continue to monitor.
[2020-11-14 09:00] VITALS: BP 146/61; PULSE 80; O2SAT 94
--- NOTE | 2020-11-14 09:19 | PC.NURSE ---
infusion complete, pt resting comfortably.
[2020-11-14 09:30] VITALS: BP 134/57; PULSE 75; O2SAT 93
[2020-11-14 10:00] VITALS: BP 138/62; PULSE 74; O2SAT 93
[2020-11-14 10:05] LABS: INR 1.33 (0.9-1.1)
[2020-11-14 11:08] VITALS: BP 138/58; PULSE 75; RESP 18; TEMP 37.4; O2SAT 94
== END 2020-11-14 11:10 | disposition home or self-care (01) ==
PROVIDERS: PCP Nurse Practitioner Family; Visit Provider Emergency Medicine
DX: U07.1 COVID-19 (principal); Z51.81 Encounter for therapeutic drug level monitoring; Z79.01 Long term (current) use of anticoagulants
CPT/HCPCS: 85610; 96365

== ENCOUNTER → 2020-11-30 15:53 | Outpatient (CLI) | payer MEDICARE, SELFPAY ==
--- NOTE | 2020-11-30 16:07 | XR_ITS ---
PROCEDURE: XR CHEST 2V CLINICAL HISTORY: F/U TO COVID COMPARISON: CR CXR CHEST(2 VIEWS-NOT PORTABLE) from 01/23/[address] [facility] [address] CHEST W/O CONTRAST from 02/02/2017 CR CXR2V XR chest 2V from 03/27/2018 CR XR CHEST AP from 04/19/2019 FINDINGS: The cardiomediastinal silhouette and pulmonary vascularity are within normal limits. The lungs are clear without infiltrates, suspicious nodules, or pleural effusions. Right hemidiaphragm is slightly elevated. Calcified granuloma is present in the right middle lobe. IMPRESSION: No acute findings. Dictated by: Gabriel Lott MD 11/30/2020 16:52 Gabriel Lott MD in [place] 11/30/2020 16:52
[2020-11-30 16:19] LABS: Basophils % 0.7 % (0.1-2.0); Eosinophils # 0.2 K/mm3 (0.0-0.4); Eosinophils % 4.1 % (0.1-12.0); Hematocrit 39.5 % (37.0-47.0); Hemoglobin 12.7 g/dL (12.2-16.2); Lymphocytes # 1.3 K/mm3 (0.7-4.5); Lymphocytes % 25.4 % (10-50); Mean Corpuscular HGB Conc 32.3 g/dL (31.8-35.4); Mean Corpuscular Hemoglobin 28.7 pg (27.0-31.2); Mean Corpuscular Volume 89.1 fl (81-99); Mean Platelet Volume 8.8 fl (7.4-10.4); Monocytes # 0.3 K/mm3 (0.1-1.0); Monocytes % 5.1 % (1.7-9.3); Neutrophils # 3.3 K/mm3 (1.8-7.8); Neutrophils % 64.8 % (37.0-80.0); Platelet Count 293 K/mm3 (142-424); Red Blood Count 4.43 M/mm3 (4.20-5.40); Red Cell Distribution Width 13.7 % (11.5-17.5); White Blood Count 5.1 K/mm3 (4.8-10.8)
[2020-11-30 16:30] LABS: D-Dimer 0.38 ug/mL (0.0-0.5)
[2020-11-30 16:31] LABS: INR 3.44 (0.9-1.1)
[2020-11-30 17:11] LABS: Alanine Aminotransferase 66 U/L (12-78); Albumin Level 3.7 g/dl (3.5-5.0); Albumin/Globulin Ratio 1.4 (1.1-1.8); Alkaline Phosphatase 52 U/L (38-126); Anion Gap 14.4 mEq/L (5-15); Aspartate Amino Transferase 60 U/L (14-36); Bilirubin,Total 0.4 mg/dl (0.2-1.3); Blood Urea Nitrogen 10 mg/dl (7-17); Calcium 9.3 mg/dl (8.4-10.2); Carbon Dioxide 25 mmol/L (22.0-30.0); Chloride 103 mmol/L (98-107); Estimated Glomerular Filt Rate 63 ml/min (>60); GFR (African American) 76 ML/MIN (>60); Globulin 2.6 g/dL (1.3-3.2); Glucose 243 mg/dl (74-100); Potassium 5.4 mmoL/L (3.5-5.1); Sodium 137 mmol/L (136-145); Total Protein,Serum 6.3 g/dl (6.3-8.2)
[2020-11-30 17:22] LABS: NT Pro Brain Natriuretic Pep. 504 pg/mL (0-125)
[2020-11-30 17:26] LABS: Troponin I < 0.01 ng/ml (0.00-0.034)
[2020-11-30 18:04] LABS: Erythrocyte Sedimentation Rate 23 mm/hr (0-30)
--- NOTE | 2020-12-01 12:02 | HMH.PHAINT ---
ACC-CALLED PATIENT WITH INR FROM LABWORK YESTERDAY. PATIENT WAS SEEN BY DR. VALDEZ YESTERDAY AND HAD OTHER BLOODWORK DONE. HAVING PATIENT TAKE 4 MG X2 DAYS, THEN 8 MG DAILY FOR THE NEXT TWO WEEKS.
== END ==
PROVIDERS: Visit Provider Internal Medicine Adolescent Medicine
DX: R06.02 Shortness of breath (principal); U07.1 COVID-19; I82.403 Acute embolism and thrombosis of unspecified deep veins of lower extremity, bilateral
CPT/HCPCS: 36415; 71046; 80053; 83880; 84484; 85025; 85378; 85610; 85651

== ENCOUNTER → 2020-12-09 09:14 | Outpatient (CLI) | payer MEDICARE, SELFPAY ==
--- NOTE | 2020-12-09 | CA_ITS ---
APPROVED REPORT EXAM: Comprehensive 2D, Doppler, and color-flow Echocardiogram Director Of Environmental Services: Keyonna Gallegos, RCS, RVS Ht: 5 ft 6 in Wt: 216lbs BSA: 2.07 BP: 110/74 mmHg Indications: increased SOA, S/p COVID-19 11/10/20, Hx-, COPD,DM,HTN, Fatigue 2D Dimensions IVSd 0.95 cm F: 0.6-1.0 LVEF (Visual) 55.50 % PWd 0.77 cm F: 0.6 - 1.0 LA Volume 44.20 mL LVDd 5.06 cm F: 3.9 - 5.3 LA Volume Index [id number] mL/m2 (M/F) 16-34 LVDs 3.59 cm F: 2.2 - 3.5 Left Atrium 3.31 cm F: 2.7 - 3.8 LVOT 2.02 cm (M/F) 1.5-2.5 M-Mode Dimensions LA Diam 3.81 cm (1.9-4.0) Ao Diam 2.78 cm (2.0-3.7) EPSs 0.88 cm TAPSE 2.02 (<1.7) LV Diastology E Decel Time 173.00 (160-240 msec) E/A Ratio 0.84 MED E' 7.60 (< 7 cm/sec) MED A' 9.70 cm/s E'/MED E' Ratio 13.07 (>14) LAT E' 8.50 (<10 cm/sec) LAT A' 11.00 cm/s E/LAT E' Ratio 11.68 (>14) Aortic Valve LVOT Max 83.00 (70-110 cm/s) LVOT VTI 19.57 cm AoV Peak Finn. 138.00 (50-130 cm/s) AI PHT 505.00 ms AO Peak GR. 7.60 mmHg AO Mean GR. 3.90 (<5 mmHg) AO VTI 29.18 (18-25 cm) GEM (VTI) 2.15 (2.5-4.5 cm2) Mitral Valve MV A Velocity 119.00 (40-130 cm/s) E/A Ratio 0.84 MV Decel. Time 173.00 (160-240 ms) Pulmonary Valve PV Peak Velocity 89.00 (50-150 cm/s) Tricuspid Valve TR P. Velocity 97.00 cm/s RAP Estimate 10.00 mmHg RVSP 13.80 mmHg Left Ventricle Left atrium is mildly enlarged, left ventricle is normal size, mild concentric left ventricular hypertrophy, visually estimated ejection fraction 55% with no regional wall motion abnormality, grade 1 diastolic dysfunction seen with tissue Doppler evidence of raise left atrial pressure. Right Ventricle Right atrium and right ventricle mildly enlarged with normal contractility. Aortic Valve Aortic valve is minimally thickened and fibrosed, there is no aortic stenosis, there is mild aortic insufficiency. Mitral Valve Mitral valve leaflets are minimally thickened, there is mild mitral regurgitation there is no mitral stenosis. Tricuspid Valve Tricuspid grossly normal, there is mild tricuspid regurgitation, tricuspid regurgitation jet velocity is inadequate in this study for assessment of right ventricular systolic pressure. Pulmonic Valve Pulmonic valve is poorly visualized. Great Vessels Aortic root is normal size. Inferior vena cava is poorly visualized. Pericardium No significant pericardial effusion noted Conclusion 1. Mild biatrial enlargement, normal left ventricular size, mild concentric left ventricular hypertrophy, visually estimated ejection fraction 55% with no regional wall motion abnormality, grade 1 diastolic dysfunction seen with tissue Doppler evidence of raise left atrial pressure. 2. Mildly enlarged right ventricle with normal contractility. 3. Mild aortic, mild mitral and tricuspid regurgitation. 4. No significant pericardial effusion noted. Electronically signed by : Raymundo Schulz MD 12/10/2020 15:36:22
== END ==
PROVIDERS: PCP Nurse Practitioner Family; Visit Provider Internal Medicine Adolescent Medicine
DX: R06.09 Other forms of dyspnea (principal); Z86.16 Personal history of COVID-19
CPT/HCPCS: 93306

== ENCOUNTER → 2020-12-11 09:00 | Outpatient (CLI) | payer MEDICARE, SELFPAY ==
[2020-12-11 09:47] LABS: Basophils % 0.7 % (0.1-2.0); Eosinophils # 0.4 K/mm3 (0.0-0.4); Eosinophils % 8.9 % (0.1-12.0); Hematocrit 42.9 % (37.0-47.0); Hemoglobin 13.4 g/dL (12.2-16.2); Mean Corpuscular HGB Conc 31.3 g/dL (31.8-35.4); Mean Corpuscular Hemoglobin 29.4 pg (27.0-31.2); Mean Corpuscular Volume 94.2 fl (81-99); Mean Platelet Volume 8.4 fl (7.4-10.4); Monocytes # 0.4 K/mm3 (0.1-1.0); Neutrophils # 2.7 K/mm3 (1.8-7.8); Neutrophils % 60.4 % (37.0-80.0); Platelet Count 226 K/mm3 (142-424); Red Blood Count 4.55 M/mm3 (4.20-5.40); Red Cell Distribution Width 13.4 % (11.5-17.5); White Blood Count 4.5 K/mm3 (4.8-10.8)
[2020-12-14 09:45] LABS: D001-IgE D pteronyssinus <0.10 kU/L (Class 0); D002-IgE D farinae <0.10 kU/L (Class 0); E001-IgE Cat Dander <0.10 kU/L (Class 0); E005-IgE Dog Dander <0.10 kU/L (Class 0); E072-IgE Mouse Urine <0.10 kU/L (Class 0); G002-IgE Bermuda Grass <0.10 kU/L (Class 0); G006-IgE Timothy Grass <0.10 kU/L (Class 0); I006-IgE Cockroach, German <0.10 kU/L (Class 0); Immunoglobulin E, Total 22 IU/mL (6-495); M001-IgE Penicillium chrysogen <0.10 kU/L (Class 0); M002-IgE Cladosporium herbarum <0.10 kU/L (Class 0); M003-IgE Aspergillus fumigatus <0.10 kU/L (Class 0); M006-IgE Alternaria alternata <0.10 kU/L (Class 0); T001-IgE Maple/Box Elder <0.10 kU/L (Class 0); T003-IgE Common Silver Birch <0.10 kU/L (Class 0); T006-IgE Cedar, Mountain <0.10 kU/L (Class 0); T007-IgE Oak, White <0.10 kU/L (Class 0); T008-IgE Elm, American <0.10 kU/L (Class 0); T010-IgE Walnut 0.11 kU/L (Class 0/I); T011-IgE Maple Leaf Sycamore <0.10 kU/L (Class 0); T014-IgE Cottonwood <0.10 kU/L (Class 0); T015-IgE Ash, White <0.10 kU/L (Class 0); T022-IgE Pecan, Hickory <0.10 kU/L (Class 0); T070-IgE White Mulberry <0.10 kU/L (Class 0); W001-IgE Ragweed, Short <0.10 kU/L (Class 0); W011-IgE Thistle, Russian <0.10 kU/L (Class 0); W014-IgE Pigweed, Common <0.10 kU/L (Class 0); W018-IgE Sheep Sorrel <0.10 kU/L (Class 0)
[2020-12-15 17:07] LABS: Strongyloides IgG Antibody Negative (Negative)
== END ==
PROVIDERS: Visit Provider Internal Medicine Pulmonary Disease
DX: J45.40 Moderate persistent asthma, uncomplicated (principal); T78.40XA Allergy, unspecified, initial encounter; Z82.5 Family history of asthma and other chronic lower respiratory diseases; D72.19 Other eosinophilia; R06.00 Dyspnea, unspecified; Z86.718 Personal history of other venous thrombosis and embolism
CPT/HCPCS: 36415; 82785; 85025; 86003; 86682

== ENCOUNTER → 2020-12-31 10:20 | Outpatient (CLI) | payer MEDICARE, SELFPAY ==
[2020-12-31 10:59] LABS: Basophils # 0.1 K/mm3 (0-0.2); Eosinophils # 0.3 K/mm3 (0.0-0.4); Eosinophils % 6.1 % (0.1-12.0); Hematocrit 43.6 % (37.0-47.0); Hemoglobin 13.5 g/dL (12.2-16.2); Lymphocytes # 1.4 K/mm3 (0.7-4.5); Mean Corpuscular HGB Conc 31.1 g/dL (31.8-35.4); Mean Corpuscular Hemoglobin 29.6 pg (27.0-31.2); Mean Corpuscular Volume 95.3 fl (81-99); Mean Platelet Volume 9.3 fl (7.4-10.4); Monocytes # 0.4 K/mm3 (0.1-1.0); Monocytes % 7.5 % (1.7-9.3); Neutrophils # 3.4 K/mm3 (1.8-7.8); Neutrophils % 60.4 % (37.0-80.0); Platelet Count 255 K/mm3 (142-424); Red Blood Count 4.58 M/mm3 (4.20-5.40); Red Cell Distribution Width 13.5 % (11.5-17.5); White Blood Count 5.6 K/mm3 (4.8-10.8)
[2020-12-31 11:04] LABS: Prothrombin Time 26.4 seconds (10.1-12.5)
[2020-12-31 11:05] LABS: INR 2.39 (0.9-1.1)
[2020-12-31 11:14] LABS: Chloride 102 mmol/L (98-107)
[2020-12-31 11:15] LABS: Potassium 5.2 mmoL/L (3.5-5.1); Sodium 138 mmol/L (136-145)
[2020-12-31 11:17] LABS: Alanine Aminotransferase 91 U/L (12-78); Alkaline Phosphatase 59 U/L (38-126); Anion Gap 14.2 mEq/L (5-15); Aspartate Amino Transferase 111 U/L (14-36); Bilirubin,Total 0.2 mg/dl (0.2-1.3); Blood Urea Nitrogen 14 mg/dl (7-17); Carbon Dioxide 27 mmol/L (22.0-30.0); Cholesterol 220 mg/dl (140-200); Estimated Glomerular Filt Rate 63 ml/min (>60); GFR (African American) 76 ML/MIN (>60); Triglycerides 187 mg/dl (30-150); VLDL Cholesterol 37 mg/dL (0-40)
[2020-12-31 11:18] LABS: Albumin Level 4.3 g/dl (3.5-5.0); Albumin/Globulin Ratio 1.7 (1.1-1.8); Calcium 9.5 mg/dl (8.4-10.2); Chol/HDL Ratio 5.2 (1-3.5); Globulin 2.6 g/dL (1.3-3.2); Glucose 194 mg/dl (74-100); HDL Cholesterol 42 mg/dl (40-60); Total Protein,Serum 6.9 g/dl (6.3-8.2)
[2020-12-31 11:29] LABS: Direct LDL Cholesterol 133.63 mg/dL (100-129)
[2020-12-31 11:36] LABS: Hemoglobin A1C 8.5 % (4.0-6.0)
== END ==
PROVIDERS: Internal Medicine Adolescent Medicine; Visit Provider Nurse Practitioner Family
DX: N18.2 Chronic kidney disease, stage 2 (mild) (principal); E11.22 Type 2 diabetes mellitus with diabetic chronic kidney disease; E78.2 Mixed hyperlipidemia; Z51.81 Encounter for therapeutic drug level monitoring; Z79.01 Long term (current) use of anticoagulants; Z79.4 Long term (current) use of insulin
CPT/HCPCS: 36415; 80053; 80061; 83036; 85025; 85610

== ENCOUNTER 2021-02-11 08:38 | Outpatient (CLI) | payer MEDICARE, SELFPAY ==
[2021-02-11 09:06] LABS: Basophils # 0.1 K/mm3 (0-0.2); Basophils % 1.5 % (0.1-2.0); Eosinophils % 15.7 % (0.1-12.0); Hemoglobin 14.1 g/dL (12.2-16.2); Lymphocytes # 1.5 K/mm3 (0.7-4.5); Lymphocytes % 23.7 % (10-50); Mean Corpuscular HGB Conc 31.3 g/dL (31.8-35.4); Mean Corpuscular Hemoglobin 29.3 pg (27.0-31.2); Mean Corpuscular Volume 93.4 fl (81-99); Mean Platelet Volume 8.7 fl (7.4-10.4); Monocytes # 0.4 K/mm3 (0.1-1.0); Monocytes % 5.7 % (1.7-9.3); Neutrophils # 3.3 K/mm3 (1.8-7.8); Neutrophils % 53.4 % (37.0-80.0); Platelet Count 247 K/mm3 (142-424); Red Blood Count 4.82 M/mm3 (4.20-5.40); White Blood Count 6.2 K/mm3 (4.8-10.8)
[2021-02-11 09:12] LABS: Hemoglobin A1C 8.2 % (4.0-6.0)
[2021-02-11 09:15] LABS: Alanine Aminotransferase 83 U/L (12-78); Albumin Level 4.4 g/dl (3.5-5.0); Albumin/Globulin Ratio 1.5 (1.1-1.8); Alkaline Phosphatase 58 U/L (38-126); Anion Gap 11.7 mEq/L (5-15); Aspartate Amino Transferase 90 U/L (14-36); Bilirubin,Total 0.4 mg/dl (0.2-1.3); Blood Urea Nitrogen 10 mg/dl (7-17); Calcium 9.9 mg/dl (8.4-10.2); Carbon Dioxide 28 mmol/L (22.0-30.0); Chloride 103 mmol/L (98-107); Chol/HDL Ratio 5.2 (1-3.5); Cholesterol 220 mg/dl (140-200); Estimated Glomerular Filt Rate 63 ml/min (>60); GFR (African American) 76 ML/MIN (>60); Glucose 87 mg/dl (74-100); HDL Cholesterol 42 mg/dl (40-60); Potassium 4.7 mmoL/L (3.5-5.1); Sodium 138 mmol/L (136-145); Total Protein,Serum 7.4 g/dl (6.3-8.2); Triglycerides 148 mg/dl (30-150); VLDL Cholesterol 30 mg/dL (0-40)
[2021-02-11 09:16] LABS: INR 1.99 (0.9-1.1); Prothrombin Time 21.4 seconds (10.1-12.5)
[2021-02-11 09:25] LABS: Direct LDL Cholesterol 133.08 mg/dL (100-129)
[2021-02-11 10:25] VITALS: BP 160/69; PULSE 67; RESP 18; TEMP 35.8; O2SAT 97
== END 2021-02-11 10:25 | disposition home or self-care (01) ==
LOC: LAB 08:40 → INF 10:09
PROVIDERS: Internal Medicine Adolescent Medicine; PCP Nurse Practitioner Family; Visit Provider Nurse Practitioner Family
DX: E11.22 Type 2 diabetes mellitus with diabetic chronic kidney disease (principal); N18.2 Chronic kidney disease, stage 2 (mild); E78.2 Mixed hyperlipidemia; M81.0 Age-related osteoporosis without current pathological fracture; Z51.81 Encounter for therapeutic drug level monitoring; Z79.01 Long term (current) use of anticoagulants
CPT/HCPCS: 36415; 80053; 80061; 83036; 85025; 85610; 96372; J0897

== ENCOUNTER 2021-03-24 10:09 | Outpatient (CLI) | payer MEDICARE, SELFPAY ==
[2021-03-24 10:50] LABS: PHA INR Fingerstick 2.3 (0.9-1.1)
== END 2021-03-24 10:53 | disposition home or self-care (01) ==
LOC: ACC 10:11
PROVIDERS: PCP Nurse Practitioner Family; Visit Provider Internal Medicine Adolescent Medicine
DX: Z51.81 Encounter for therapeutic drug level monitoring (principal); Z79.01 Long term (current) use of anticoagulants
CPT/HCPCS: 85610; 99211; G0463

== ENCOUNTER → 2021-04-05 14:31 | Outpatient (CLI) | payer MEDICARE, SELFPAY ==
--- NOTE | 2021-04-05 14:34 | US_ITS ---
PROCEDURE: US SOFT TISSUE HEAD AND NECK CLINICAL INDICATION: SOFT TISSUE MASS COMPARISON: No exams were available for comparison FINDINGS: The submandibular and parotid glands have an unremarkable appearance. Scattered small nodes are present. No cystic or solid masses or fluid collections evident. Thyroid gland was not imaged on this study. IMPRESSION: Unremarkable ultrasound of the neck . Dictated by: Gabriel Lott MD 04/05/2021 15:38 Gabriel Lott MD in [place] 04/05/2021 15:38
== END ==
PROVIDERS: PCP Nurse Practitioner Family; Visit Provider Nurse Practitioner Family
DX: M79.89 Other specified soft tissue disorders (principal)
CPT/HCPCS: 76536

== ENCOUNTER → 2021-04-19 15:46 | Outpatient (CLI) | payer MEDICARE, SELFPAY ==
[2021-04-24 18:08] LABS: M003-IgE Aspergillus fumigatus <0.10 kU/L (Class 0)
== END ==
PROVIDERS: PCP Nurse Practitioner Family; Visit Provider Internal Medicine Pulmonary Disease
DX: J44.9 Chronic obstructive pulmonary disease, unspecified (principal); J45.909 Unspecified asthma, uncomplicated
CPT/HCPCS: 36415; 86003

== ENCOUNTER 2021-05-10 10:08 | Outpatient (CLI) | payer MEDICARE, SELFPAY ==
[2021-05-10 14:59] LABS: PHA INR Fingerstick 2.6 (0.9-1.1)
== END 2021-05-10 15:22 | disposition home or self-care (01) ==
LOC: ACC 10:09
PROVIDERS: Internal Medicine Adolescent Medicine; PCP Nurse Practitioner Family; Visit Provider Nurse Practitioner Family
DX: Z51.81 Encounter for therapeutic drug level monitoring (principal); Z79.01 Long term (current) use of anticoagulants
CPT/HCPCS: 85610; 99211; G0463

== ENCOUNTER 2021-06-18 11:55 | Outpatient (CLI) | payer MEDICARE, SELFPAY ==
[2021-06-18 14:42] LABS: PHA INR Fingerstick 2.2 (0.9-1.1)
== END 2021-06-18 15:29 | disposition home or self-care (01) ==
LOC: ACC 11:56
PROVIDERS: PCP Nurse Practitioner Family; Visit Provider Nurse Practitioner Family
DX: Z51.81 Encounter for therapeutic drug level monitoring (principal); Z79.01 Long term (current) use of anticoagulants
CPT/HCPCS: 85610; 99211; G0463

== ENCOUNTER 2021-07-30 09:49 | Outpatient (CLI) | payer MEDICARE, SELFPAY ==
[2021-07-30 15:37] LABS: PHA INR Fingerstick 2.2 (0.9-1.1)
== END 2021-07-30 15:39 | disposition home or self-care (01) ==
LOC: ACC 09:50
PROVIDERS: PCP Nurse Practitioner Family; Visit Provider Internal Medicine Adolescent Medicine
DX: Z51.81 Encounter for therapeutic drug level monitoring (principal); Z79.01 Long term (current) use of anticoagulants
CPT/HCPCS: 85610; 99211; G0463

== ENCOUNTER 2021-08-12 11:10 | Outpatient (CLI) | payer MEDICARE, SELFPAY ==
[2021-08-12 11:31] VITALS: BP 129/72; PULSE 67; RESP 18; TEMP 36.3; O2SAT 98
[2021-08-12 11:50] VITALS: BP 124/69; PULSE 70; RESP 16; TEMP 36.3; O2SAT 98
== END 2021-08-12 11:50 | disposition home or self-care (01) ==
LOC: INF 11:11
PROVIDERS: PCP Nurse Practitioner Family; Visit Provider Nurse Practitioner Family
DX: M81.0 Age-related osteoporosis without current pathological fracture (principal)
CPT/HCPCS: 96372; J0897

== ENCOUNTER → 2021-08-21 10:08 | Outpatient (CLI) | payer MEDICARE, SELFPAY ==
[2021-08-21 10:54] LABS: Chloride 102 mmol/L (98-107)
[2021-08-21 10:55] LABS: Potassium 5.1 mmoL/L (3.5-5.1); Sodium 135 mmol/L (136-145)
[2021-08-21 10:57] LABS: Blood Urea Nitrogen 16 mg/dl (7-17); Estimated Glomerular Filt Rate 63 ml/min (>60); GFR (African American) 76 ML/MIN (>60)
[2021-08-21 10:58] LABS: Anion Gap 12.1 mEq/L (5-15); Calcium 9.6 mg/dl (8.4-10.2); Carbon Dioxide 26 mmol/L (22.0-30.0); Glucose 216 mg/dl (74-100)
== END ==
PROVIDERS: Visit Provider Internal Medicine Adolescent Medicine
DX: I10 Essential (primary) hypertension (principal); E78.5 Hyperlipidemia, unspecified
CPT/HCPCS: 36415; 80048

== ENCOUNTER → 2021-08-30 08:20 | Outpatient (CLI) | payer MEDICARE, SELFPAY ==
--- NOTE | 2021-08-30 | XR_ITS ---
FINAL REPORT TECHNIQUE: Bone densitometry calculations of the lumbar spine and left hip were obtained. CLINICAL HISTORY: .osteopenia FINDINGS: Using L1-4, the bone mineral density of the spine is 0.9 a 1 g/cm2, corresponding to T-score of -0.6. Using the left hip, the bone mineral density of the femoral neck is 0.526 g/cm2, corresponding to a T-score of -2.9. NOTE: T-score: Standard deviation compared with peak bone mass of young adult mean. *Following the recommendations of the International Society of Bone densitometry, classification of hip BMD is based on the lower of two T-scores; total hip or femoral neck. IMPRESSION: Diminished bone mineral density of the left hip consistent with osteoporosis. FRAX fracture risk is not reported due to osteoporosis. Normal bone mineral density of the lumbar spine. Reviewed, Interpreted and Dictated by Chavez Renae MD Transcribed by Pavan Lagos Authenticated by Chavez Renae MD on 08/31/2021 09:33:56 AM [facility]
--- NOTE | 2021-08-30 08:25 | MM_ITS ---
PROCEDURE INFORMATION: Exam: MG Bilateral Screening 3D Mammography Exam date and time: 08/30/2021 9:03 AM Age: 65 years old Clinical indication: Screening. No family history of breast cancer. TECHNIQUE: Imaging protocol: Bilateral Screening tomosynthesis and 2D mammography including computer-aided detection (CAD) when performed. COMPARISON: 1. MG MM DIG SCREENING MAMM BI W/CAD 06/05/2019 10:27 AM 2. MG [facility] MM Dig screening mamm BI w/CAD 01/08/2018 9:14 AM 3. MG [facility] DIG MAMM-SCREEN AJIT W/CAD 01/06/2017 8:50 AM 4. MG [facility] DIG MAMM-SCREEN AJIT 12/15/2015 3:19 PM FINDINGS: MAMMOGRAPHY: Breast composition: The breasts are almost entirely fatty. Mass: No suspicious mass. Architectural distortion: None. Calcifications: No suspicious calcifications. Asymmetric density: None. Skin thickening: None. Axillary adenopathy: None. IMPRESSION: No mammographic evidence of malignancy. Annual screening is recommended unless otherwise clinically indicated. ASSESSMENT: BI-RADS Category 1: Negative
== END ==
PROVIDERS: PCP Nurse Practitioner Family; Visit Provider Nurse Practitioner Family
DX: Z78.0 Asymptomatic menopausal state (principal); Z12.31 Encounter for screening mammogram for malignant neoplasm of breast
CPT/HCPCS: 77063; 77067; 77080

== ENCOUNTER 2021-09-14 10:06 | Outpatient (CLI) | payer MEDICARE, SELFPAY ==
[2021-09-14 15:32] LABS: PHA INR Fingerstick 2.4 (0.9-1.1)
== END 2021-09-14 15:37 | disposition home or self-care (01) ==
LOC: ACC 10:08
PROVIDERS: PCP Nurse Practitioner Family; Visit Provider Internal Medicine Adolescent Medicine
DX: Z51.81 Encounter for therapeutic drug level monitoring (principal); Z79.01 Long term (current) use of anticoagulants
CPT/HCPCS: 85610; 99211; G0463

== ENCOUNTER 2021-10-22 10:54 | Outpatient (CLI) | payer MEDICARE, SELFPAY ==
[2021-10-22 15:57] LABS: PHA INR Fingerstick 2.1 (0.9-1.1)
== END 2021-10-22 15:58 | disposition home or self-care (01) ==
LOC: ACC 10:56
PROVIDERS: Internal Medicine Adolescent Medicine; PCP Nurse Practitioner Family; Visit Provider Nurse Practitioner Family
DX: Z51.81 Encounter for therapeutic drug level monitoring (principal); Z79.01 Long term (current) use of anticoagulants
CPT/HCPCS: 85610; 99211; G0463

== ENCOUNTER 2021-11-25 09:42 | Outpatient (CLI) | payer MEDICARE, SELFPAY ==
[2021-11-25 15:22] LABS: PHA INR Fingerstick 2.1 (0.9-1.1)
== END 2021-11-25 15:28 | disposition home or self-care (01) ==
LOC: ACC 09:43
PROVIDERS: PCP Nurse Practitioner Family; Visit Provider Nurse Practitioner Family
DX: Z51.81 Encounter for therapeutic drug level monitoring (principal); Z79.01 Long term (current) use of anticoagulants
CPT/HCPCS: 85610; 99211; G0463

== ENCOUNTER 2022-01-06 10:09 | Outpatient (CLI) | payer MEDICARE, SELFPAY ==
[2022-01-06 14:03] LABS: PHA INR Fingerstick 2.1 (0.9-1.1)
== END 2022-01-06 14:50 ==
LOC: ACC 10:11
PROVIDERS: PCP Nurse Practitioner Family; Visit Provider Internal Medicine Adolescent Medicine
DX: Z51.81 Encounter for therapeutic drug level monitoring (principal); Z79.01 Long term (current) use of anticoagulants
CPT/HCPCS: 85610; 99211; G0463

== ENCOUNTER 2022-02-17 09:59 | Outpatient (CLI) | payer MEDICARE, SELFPAY ==
[2022-02-17 10:24] LABS: PHA INR Fingerstick 2.4 (0.9-1.1)
== END 2022-02-17 10:25 ==
LOC: ACC 10:00
PROVIDERS: PCP Nurse Practitioner Family; Visit Provider Internal Medicine Adolescent Medicine
DX: Z51.81 Encounter for therapeutic drug level monitoring (principal); Z79.01 Long term (current) use of anticoagulants
CPT/HCPCS: 85610; 99211; G0463

== ENCOUNTER 2022-03-30 09:43 | Outpatient (CLI) | payer MEDICARE, SELFPAY ==
[2022-03-30 15:41] LABS: PHA INR Fingerstick 2.9 (0.9-1.1)
== END 2022-03-30 16:18 ==
PROVIDERS: Nurse Practitioner Family; PCP Internal Medicine Adolescent Medicine; Visit Provider Orthopaedic Surgery
DX: Z51.81 Encounter for therapeutic drug level monitoring (principal); Z79.01 Long term (current) use of anticoagulants
CPT/HCPCS: 85610; 99211; G0463

== ENCOUNTER 2022-04-22 11:00 | Outpatient (CLI) | payer MEDICARE, SELFPAY ==
[2022-04-22 14:14] LABS: PHA INR Fingerstick 2.8 (0.9-1.1)
== END 2022-04-22 14:42 ==
LOC: ACC 11:00
PROVIDERS: PCP Internal Medicine Adolescent Medicine; Visit Provider Internal Medicine Adolescent Medicine
DX: Z51.81 Encounter for therapeutic drug level monitoring (principal); Z79.01 Long term (current) use of anticoagulants
CPT/HCPCS: 85610; 99211; G0463

== ENCOUNTER 2022-05-20 09:48 | Outpatient (CLI) | payer MEDICARE, SELFPAY ==
[2022-05-20 12:09] LABS: PHA INR Fingerstick 2.8 (0.9-1.1)
== END 2022-05-20 16:29 ==
PROVIDERS: PCP Internal Medicine Adolescent Medicine; Visit Provider Internal Medicine Adolescent Medicine
DX: Z51.81 Encounter for therapeutic drug level monitoring (principal); Z79.01 Long term (current) use of anticoagulants
CPT/HCPCS: 85610; 99211; G0463

== ENCOUNTER 2022-06-21 10:02 | Outpatient (CLI) | payer MEDICARE, SELFPAY ==
[2022-06-21 10:09] VITALS: BMI 37.0
[2022-06-21 10:38] LABS: Albumin Level 4.4 g/dl (3.5-5.0)
[2022-06-21 10:41] LABS: Calcium 9.5 mg/dl (8.4-10.2); Creatinine Clearance Estimated 87 mL/min (50-200); Estimated Glomerular Filt Rate 55 ml/min (>60); GFR (African American) 67 ML/MIN (>60)
[2022-06-21 11:03] VITALS: BP 147/71; PULSE 72; RESP 18; TEMP 36.6; O2SAT 97
[2022-06-21 11:25] VITALS: BP 144/73; PULSE 70; RESP 18; O2SAT 97
== END 2022-06-21 11:30 | disposition home or self-care (01) ==
LOC: INF 10:03
PROVIDERS: PCP Nurse Practitioner Family; Visit Provider Nurse Practitioner Family
DX: M81.0 Age-related osteoporosis without current pathological fracture (principal)
CPT/HCPCS: 82040; 82310; 82565; 96374; J3489

== ENCOUNTER 2022-07-07 09:59 | Outpatient (CLI) | payer MEDICARE, SELFPAY ==
[2022-07-07 10:45] LABS: PHA INR Fingerstick 2.9 (0.9-1.1)
== END 2022-07-07 10:47 ==
LOC: ACC 10:00
PROVIDERS: PCP Internal Medicine Adolescent Medicine; Visit Provider Internal Medicine Adolescent Medicine
DX: Z51.81 Encounter for therapeutic drug level monitoring (principal); Z79.01 Long term (current) use of anticoagulants
CPT/HCPCS: 85610; 99211; G0463

== ENCOUNTER → 2022-07-18 13:49 | Outpatient (CLI) | payer MEDICARE, SELFPAY | PROVIDERS: PCP Nurse Practitioner Family; Visit Provider Nurse Practitioner Family | DX: G47.30 Sleep apnea, unspecified (principal); R06.83 Snoring; G47.10 Hypersomnia, unspecified | CPT/HCPCS: G0399 ==

== ENCOUNTER 2022-08-23 10:51 | Outpatient (CLI) | payer MEDICARE, SELFPAY ==
[2022-08-23 13:46] LABS: PHA INR Fingerstick 3.3 (0.9-1.1)
== END 2022-08-23 13:47 ==
LOC: ACC 10:51
PROVIDERS: PCP Internal Medicine Adolescent Medicine; Visit Provider Internal Medicine Adolescent Medicine
DX: Z51.81 Encounter for therapeutic drug level monitoring (principal); Z79.01 Long term (current) use of anticoagulants
CPT/HCPCS: 85610; 99211; G0463

== ENCOUNTER → 2022-08-31 09:27 | Outpatient (CLI) | payer MEDICARE, SELFPAY ==
--- NOTE | 2022-08-31 09:31 | XR_ITS ---
FINAL REPORT TECHNIQUE: Bone densitometry calculations of the lumbar spine and left hip were obtained. CLINICAL HISTORY: post menopausal COMPARISON: 12/30/2019 FINDINGS: Using L1-4, the bone mineral density of the spine is 1.040 g/cm2, corresponding to T-score of 0.1. This is likely elevated secondary to hypertrophic changes. Using the left hip, the bone mineral density of the femoral neck is 0.538 g/cm2, corresponding to a T-score of -2.8. Using the right hip, the bone mineral density of the femoral neck is 0.685 g/cm2, corresponding to a T-score of -1.5. NOTE: T-score: Standard deviation compared with peak bone mass of young adult mean. *Following the recommendations of the International Society of Bone Densitometry, classification of hip BMD is based on the lower of two T-scores; total hip or femoral neck. IMPRESSION: Osteoporosis: Lowest T-score is at or below -2.5. This patient's T-score meets the World Health Organization criteria for osteoporosis. FRAX was not reported because some of the T-scores are at or below-2.5. Reviewed, Interpreted and Dictated by Gilberto Turner III, MD Transcribed by Cayla Wade Authenticated and [facility]
--- NOTE | 2022-08-31 09:32 | MM_ITS ---
PROCEDURE INFORMATION: Exam: MG Bilateral Screening 3D Mammography Exam date and time: 08/31/2022 9:47 AM Age: 66 years old Clinical indication: Screening examination TECHNIQUE: Imaging protocol: Bilateral Screening tomosynthesis and 2D mammography including computer-aided detection (CAD) when performed. COMPARISON: MG MM DIG SCREENING MAMM BI W/CAD 08/30/2021 9:03 AM FINDINGS: MAMMOGRAPHY: Breast composition: The breasts are almost entirely fatty. Mass: None. Architectural distortion: None. Calcifications: No suspicious calcifications. Asymmetric density: None. Skin thickening: None. Axillary adenopathy: None. IMPRESSION: No mammographic evidence of malignancy. Annual screening is recommended unless otherwise clinically indicated. ASSESSMENT: BI-RADS Category 1: Negative
== END ==
PROVIDERS: PCP Internal Medicine Adolescent Medicine; Visit Provider Nurse Practitioner Family
DX: Z78.0 Asymptomatic menopausal state (principal); Z12.31 Encounter for screening mammogram for malignant neoplasm of breast
CPT/HCPCS: 77063; 77067; 77080

== ENCOUNTER 2022-09-13 10:49 | Outpatient (CLI) | payer MEDICARE, SELFPAY ==
[2022-09-13 11:34] LABS: PHA INR Fingerstick 2.7 (0.9-1.1)
== END 2022-09-13 11:36 ==
LOC: ACC 10:50
PROVIDERS: PCP Internal Medicine Adolescent Medicine; Visit Provider Internal Medicine Adolescent Medicine
DX: Z51.81 Encounter for therapeutic drug level monitoring (principal); Z79.01 Long term (current) use of anticoagulants
CPT/HCPCS: 85610; 99211; G0463

== ENCOUNTER 2022-10-25 10:54 | Outpatient (CLI) | payer MEDICARE, SELFPAY ==
[2022-10-25 11:14] LABS: PHA INR Fingerstick 2.1 (0.9-1.1)
== END 2022-10-25 11:15 ==
LOC: ACC 10:55
PROVIDERS: PCP Nurse Practitioner Family; Visit Provider Internal Medicine Adolescent Medicine
DX: Z79.01 Long term (current) use of anticoagulants (principal); Z51.81 Encounter for therapeutic drug level monitoring
CPT/HCPCS: 85610; 99211; G0463

== ENCOUNTER 2022-12-06 10:53 | Outpatient (CLI) | payer MEDICARE, SELFPAY ==
[2022-12-06 16:13] LABS: PHA INR Fingerstick 3.1 (0.9-1.1)
== END 2022-12-06 16:15 ==
LOC: ACC 10:54
PROVIDERS: PCP Internal Medicine Adolescent Medicine; Visit Provider Internal Medicine Adolescent Medicine
DX: Z79.01 Long term (current) use of anticoagulants (principal); Z51.81 Encounter for therapeutic drug level monitoring
CPT/HCPCS: 85610; 99211; G0463

== ENCOUNTER 2023-01-03 10:54 | Outpatient (CLI) | payer MEDICARE, SELFPAY ==
[2023-01-03 14:48] LABS: PHA INR Fingerstick 2.5 (0.9-1.1)
== END 2023-01-03 14:50 ==
LOC: ACC 10:55
PROVIDERS: PCP Nurse Practitioner Family; Visit Provider Internal Medicine Adolescent Medicine
DX: Z79.01 Long term (current) use of anticoagulants (principal); Z51.81 Encounter for therapeutic drug level monitoring
CPT/HCPCS: 85610; 99211; G0463

== ENCOUNTER → 2023-02-14 08:45 | Outpatient (CLI) | payer MEDICARE, SELFPAY ==
[2023-02-14 09:16] LABS: Basophils % 0.5 % (0.1-2.0); Eosinophils # 0.5 K/mm3 (0.0-0.4); Eosinophils % 9.2 % (0.1-12.0); Hematocrit 37.1 % (37.0-47.0); Hemoglobin 12.3 g/dL (12.2-16.2); Lymphocytes # 1.1 K/mm3 (0.7-4.5); Lymphocytes % 22.7 % (10-50); Mean Corpuscular HGB Conc 33.3 g/dL (31.8-35.4); Mean Corpuscular Hemoglobin 28.9 pg (27.0-31.2); Mean Corpuscular Volume 86.8 fl (81-99); Mean Platelet Volume 8.9 fl (7.4-10.4); Monocytes # 0.2 K/mm3 (0.1-1.0); Monocytes % 4.9 % (1.7-9.3); Neutrophils # 3.1 K/mm3 (1.8-7.8); Neutrophils % 62.7 % (37.0-80.0); Platelet Count 217 K/mm3 (142-424); Red Blood Count 4.27 M/mm3 (4.20-5.40); Red Cell Distribution Width 13.6 % (11.5-17.5)
[2023-02-14 09:28] LABS: INR 2.87 (0.9-1.1); Prothrombin Time 28.9 seconds (10.1-12.5)
[2023-02-14 09:41] LABS: Creatinine,Urine Random 156 mg/dL (Not Estab.)
[2023-02-14 09:43] LABS: Microalbumin/Creatinine Ratio 11.7
[2023-02-14 09:48] LABS: Hemoglobin A1C 7.6 % (4.0-6.0)
[2023-02-14 10:26] LABS: Alanine Aminotransferase 69 U/L (12-78); Albumin Level 4.1 g/dl (3.5-5.0); Albumin/Globulin Ratio 1.3 (1.1-1.8); Alkaline Phosphatase 54 U/L (38-126); Anion Gap 15.3 mEq/L (5-15); Aspartate Amino Transferase 99 U/L (14-36); Bilirubin,Total 0.4 mg/dl (0.2-1.3); Blood Urea Nitrogen 16 mg/dl (7-17); Calcium 9.7 mg/dl (8.4-10.2); Carbon Dioxide 26 mmol/L (22.0-30.0); Chloride 103 mmol/L (98-107); Cholesterol 210 mg/dl (140-200); Estimated Glomerular Filt Rate 62 ml/min (>60); GFR (African American) 75 ML/MIN (>60); Globulin 3.1 g/dL (1.3-3.2); Glucose 168 mg/dl (74-100); HDL Cholesterol 35 mg/dl (40-60); Potassium 4.3 mmoL/L (3.5-5.1); Sodium 140 mmol/L (136-145); Total Protein,Serum 7.2 g/dl (6.3-8.2); Triglycerides 173 mg/dl (30-150); VLDL Cholesterol 35 mg/dL (0-40)
[2023-02-14 11:14] LABS: Vitamin B12 547 pg/mL (239-931)
[2023-02-14 13:30] LABS: 25-OH Vitamin D, Total 77.1 ng/mL (30-100)
== END ==
PROVIDERS: Internal Medicine Adolescent Medicine; PCP Nurse Practitioner Family; Visit Provider Nurse Practitioner Family
DX: Z79.01 Long term (current) use of anticoagulants (principal); E53.8 Deficiency of other specified B group vitamins; E11.22 Type 2 diabetes mellitus with diabetic chronic kidney disease; E55.9 Vitamin D deficiency, unspecified; Z68.36 Body mass index [BMI] 36.0-36.9, adult; Z79.4 Long term (current) use of insulin; Z79.84 Long term (current) use of oral hypoglycemic drugs; N18.9 Chronic kidney disease, unspecified
CPT/HCPCS: 36415; 80053; 80061; 82043; 82306; 82570; 82607; 83036; 85025; 85610

== ENCOUNTER → 2023-02-24 10:00 | Outpatient (CLI) | payer MEDICARE, SELFPAY ==
--- NOTE | 2023-02-24 10:26 | PC.NURSE ---
Pre and Post Spirometry completed without incident. Albuterol 0.083% given via HHN, per protocol, Pt tolerated tx well.
== END ==
PROVIDERS: PCP Nurse Practitioner Family; Visit Provider Internal Medicine Pulmonary Disease
DX: J45.50 Severe persistent asthma, uncomplicated (principal); J82.83 Eosinophilic asthma
CPT/HCPCS: 94060

== ENCOUNTER 2023-03-28 10:55 | Outpatient (CLI) | payer MEDICARE, SELFPAY ==
[2023-03-28 13:57] LABS: PHA INR Fingerstick 2.6 (0.9-1.1)
== END 2023-03-28 14:07 ==
LOC: ACC 10:56
PROVIDERS: PCP Internal Medicine Adolescent Medicine; Visit Provider Internal Medicine Adolescent Medicine
DX: Z79.01 Long term (current) use of anticoagulants (principal); Z51.81 Encounter for therapeutic drug level monitoring
CPT/HCPCS: 85610; 99211; G0463

== ENCOUNTER 2023-05-09 10:54 | Outpatient (CLI) | payer MEDICARE, SELFPAY ==
[2023-05-09 11:13] LABS: PHA INR Fingerstick 2.5 (0.9-1.1)
== END 2023-05-09 11:14 ==
LOC: ACC 10:55
PROVIDERS: PCP Internal Medicine Adolescent Medicine; Visit Provider Internal Medicine Adolescent Medicine
DX: Z79.01 Long term (current) use of anticoagulants (principal); Z51.81 Encounter for therapeutic drug level monitoring
CPT/HCPCS: 85610; 99211; G0463

== ENCOUNTER 2023-06-21 15:08 | Outpatient (CLI) | payer MEDICARE, SELFPAY ==
[2023-06-21 15:34] LABS: PHA INR Fingerstick 2.2 (0.9-1.1)
== END 2023-06-21 15:37 ==
LOC: ACC 15:09
PROVIDERS: PCP Nurse Practitioner Family; Visit Provider Internal Medicine Adolescent Medicine
DX: Z79.01 Long term (current) use of anticoagulants (principal); Z51.81 Encounter for therapeutic drug level monitoring
CPT/HCPCS: 85610; 99211; G0463

== ENCOUNTER 2023-07-06 14:33 | Outpatient (CLI) | payer MEDICARE, SELFPAY ==
--- NOTE | 2023-07-06 | CA_ITS ---
APPROVED REPORT EXAM: Comprehensive 2D, Doppler, and color-flow Echocardiogram After School Program Director: Frances Harris RT(R) Ht: 5 ft 5 in Wt: 220lbs BSA: 2.06 BP: 136/68 mmHg Indications: VENTURA, COPD, HTN, DM, fatigue 2D Dimensions LVEF (Bejarano's) 51.10 % F: 54 - 74 LV Volume 108.40 mL F: 46 - 106 LV Volume Index 52.6 mL/m2 F: 29 - 61 EF AP4 54.10 % EF AP2 48.0 % EF BP 51.1 % GL Strain -18.9 % M-Mode Dimensions RVDd 3.10 cm (0.9-2.6) LA Diam 3.58 cm (1.9-4.0) LVDd 4.16 cm (3.5-5.7) LVDs 3.10 cm (3.5-5.7) IVSd 1.06 cm (0.6-1.1) PWd 0.93 cm (0.6-1.1) EF (Teich) 50.70% FS 25.50% EDV (Teich) 76.80 mL ESV (Teich) 37.90 mL LV Diastology E Decel Time 190 (160-240 msec) E/A Ratio 0.8 Mitral Valve MV E Max Finn. 98.0 (40-130 cm/s) MV A Velocity 118.0 (40-130 cm/s) E/A Ratio 0.83 MV PHT 56.0 ms Left Ventricle The left ventricle is normal size. The left ventricular systolic function is normal. The left ventricular ejection fraction is within the normal range. There is normal left ventricular wall thickness. There is normal LV segmental wall motion. The left ventricular diastolic function is normal. LVEF is 55%. Right Ventricle The right ventricle is mildly dilated. The right ventricular systolic function is normal. Atria Left atrium is mildly dilated. The right atrium size is normal. There is no Doppler evidence of interatrial shunt. Aortic Valve The aortic valve is mildly thickened. There is no aortic valvular stenosis. Mild aortic regurgitation. Mitral Valve The mitral valve leaflets are mildly thickened. No evidence of mitral valve stenosis. Mild mitral regurgitation. Tricuspid Valve The tricuspid valve leaflets are thin and pliable. Trace tricuspid regurgitation. There is insufficient TR jet to estimate RVSP. Pulmonic Valve The pulmonary valve is normal in structure. Trace pulmonic regurgitation. Great Vessels The aortic root is normal in size. The ascending aorta is normal in size. IVC is normal in size and collapses >50% with inspiration. Pericardium There is no pericardial effusion. Other Information Study Quality: Fair Conclusion Normal biventricular systolic function. Mild RV dilation. Mild LA dilation. Mild MR. Mild AI. Electronically signed by : María Daniel MD 07/10/2023 01:05:07
--- NOTE | 2023-07-06 14:40 | XR_ITS ---
FINAL REPORT CLINICAL HISTORY: RT HIP PAIN, no known injury. COMPARISON: None FINDINGS: RIGHT HIP, 3 views 3 views of the right hip demonstrate no acute fracture or dislocation. The joint spaces demonstrate moderate degenerative changes. No soft tissue abnormality is seen. IMPRESSION: Degenerative change without acute bony abnormality. Reviewed, Interpreted and Dictated by Leyla Irene MD Transcribed by SARAH Ledesma Authenticated and . [facility] [place]
== END 2023-07-06 23:59 ==
LOC: RT 14:33
PROVIDERS: PCP Nurse Practitioner Family; Visit Provider Nurse Practitioner Family
DX: R06.09 Other forms of dyspnea (principal); M25.551 Pain in right hip
CPT/HCPCS: 73502; 93306

== ENCOUNTER 2023-08-02 10:02 | Outpatient (CLI) | payer MEDICARE, SELFPAY ==
[2023-08-02 11:43] LABS: PHA INR Fingerstick 2.7 (0.9-1.1)
== END 2023-08-02 11:50 ==
LOC: ACC 10:03
PROVIDERS: PCP Internal Medicine Adolescent Medicine; Visit Provider Internal Medicine Adolescent Medicine
DX: Z79.01 Long term (current) use of anticoagulants (principal); Z51.81 Encounter for therapeutic drug level monitoring
CPT/HCPCS: 85610; 99211; G0463

== ENCOUNTER 2023-09-13 10:32 | Outpatient (CLI) | payer MEDICARE, SELFPAY ==
[2023-09-13 10:45] LABS: PHA INR Fingerstick 2.6 (0.9-1.1)
== END 2023-09-13 10:47 ==
LOC: ACC 10:33
PROVIDERS: PCP Internal Medicine Adolescent Medicine; Visit Provider Internal Medicine Adolescent Medicine
DX: Z79.01 Long term (current) use of anticoagulants (principal); I87.8 Other specified disorders of veins
CPT/HCPCS: 85610; 99211; G0463

== ENCOUNTER 2023-09-14 16:00 | Outpatient (RCR) | payer MEDICARE, SELFPAY ==
--- NOTE | 2023-07-18 13:03 | HMH.PTOPEV ---
PT Outpatient Evaluation Rehab PT Outpatient Evaluation Start: 07/18/23 09:12 Freq: Status: Active Protocol: Document 07/18/23 09:12 XAVI (Rec: 07/18/23 13:02 XAVI [id number]) E-signed By Josy Dhaliwal, PT Outpatient Therapy Subjective History Subjective History Pt is a 67 y/o female who reports onset of R anterior hip pain 2 years ago. Pt reports worsening of pain/ symptoms 3-4 weeks ago. Pt denies known trauma or injury but states she did move some furniture around her home before pain worsened. Pt reports she went to her PCP regarding hip pain ~1 week ago and was instructed to apply heat and take Tylenol which she states improved severity of pain. Pt had a right hip xray on 07/06/23 with findings of 3 views of the right hip demonstrate no acute fracture or dislocation. The joint spaces demonstrate moderate degenerative changes. No soft tissue abnormality is seen. Pt reports constant anterior groin pain with weightbearing activities that is only relieved with rest and heat. Pt states she gets random sharp pain that shoots through her groin region with weightbearing activities as well. Pt denies numbness/ tingling. Pt reports pain is aggravated by laying on her right side, sit to stand transfers, prolonged standing/ walking, and stair climbing. Pt reports her right leg often feels like it will give out on her, denies falls or required use of an AD. Pt reports her hip often feels stuck or locked when performing sit to stand transfers. Pt reports difficulty and pain lifting the right leg getting in/out of the tub and her car. Pt reports she is to return to her PCP in a couple weeks for a follow-up visit. Medical History: Osteoporosis, Hypertension, Hyperlipidemia, Type II Diabetes, Asthma, COPD, Heart palpitations, hx of blood clots, hx TBI 2007 New diagnosis of cancer in past 12 No months? Chief Complaint Pain,Spasms,Stiff,Catches/ Locks Symptom Type Ache,Sharp,Dull Symptoms Relieved By Rest/Positioning,Heat Symptoms Aggravated By Standing,Physical Activity, Twisting,Walking Prior Functional Limitations None Current Functional Limitations Housework,Dressing,Standing, Squatting,Walking,Stairs, Balance Symptom Description Intermittent Level of pain today (0-10) 3 Pain scale - at its best (0-10) 0 Pain scale - at its worst (0-10) 10 Hip/Knee Eval Gait Observation General Gait Pattern Observation Antalgic Gait,Decrease Weight Bear (R) Assistive Device Assistive Devices None / NA Palpation Tenderness bilateral Knee Palpation Overall Comment R hip flexor, adductor & piriformis mm Hip Palpation Findings Tenderness MMT right Hip Flexion Strength Grade 4- Good- Hip Abduction Strength Grade 4- Good- Hip Adduction Strength Grade 4- Good- Hip Extension Strength Grade 3+ Fair+ Hip External Rotation Strength Grade 4- Good- Hip Internal Rotation Strength Grade 4- Good- Knee Extension Strength Grade 4 Good Knee Flexion Strength Grade 4 Good ROM Hip Flexion w/Knee Flexed Passive Range 85 of Motion (degrees) Hip External Rotation Active Range of 35 Motion (degrees) Hip Internal Rotation Active Range of 20 Motion (degrees) Special Tests Sciatic Nerve Tension Test Negative Right Hip Scouring (Quadrant) Test Positive Right Lower Extremity Functional Index Activities Today, do you or would you have any difficulty at all with: a.Any of your usual work, housework or Moderate difficulty school activities b. Your usual hobbies, recreational or Moderate difficulty sporting activities c. Getting into or out of the bath Moderate difficulty d. Walking between rooms Moderate difficulty e. Putting on your shoes or socks Moderate difficulty f. Squatting Extreme difficulty or unable to perform activity g. Lifting an object, like a bag of Quite a bit of difficulty groceries from the floor h. Performing light activities around Moderate difficulty your home i. Performing heavy activities around Extreme difficulty or unable your home to perform activity j. Getting into or out of a car Quite a bit of difficulty k. Walking 2 blocks Extreme difficulty or unable to perform activity l. Walking a mile Extreme difficulty or unable to perform activity m. Going up or down 10 stairs (about 1 Quite a bit of difficulty flight of stairs) n. Standing for 1 hour Extreme difficulty or unable to perform activity o. Sitting for 1 hour Moderate difficulty p. Running on even ground Extreme difficulty or unable to perform activity q. Running on uneven ground Extreme difficulty or unable to perform activity r. Making sharp turns while running fast Extreme difficulty or unable to perform activity s. Hopping Extreme difficulty or unable to perform activity t. Rolling over in bed A little bit of difficulty LEFI Score Lower Extremity Functional Index Score 20 Outpatient Therapy Assessment Impairments Problems/Impairmments Palpation Tenderness,Impaired Range of Motion,Impaired Strength,Impaired Gait Pattern ,Impaired Walking,Impaired Standing,Impaired Dressing, Impaired Shower/Bathing, Impaired Household Care, Impaired Stair Climbing, Impaired Incline Stepping, Impaired Stepping on Uneven Surface,Impaired Squatting, Impaired Balance,Subjective C/ O Pain,Impaired Self Care/Self Management Prognosis Rehab Potential Good Clinical Impression Consistent with Diagnosis Yes Short Term Goals Number of Weeks 3 Increase Range of Motion Yes: Improve R hip flexion AROM to at least 90, hip IR/ER to 35-40 Improve Ability to Dress Self Yes: don shoes/socks on RLE I with pain 8/10 or less Improve LEFI Score Yes: Improve score to 25-30/80 to improve overall QOL Decrease Subjective C/O Pain Yes: Improve pain at worst to 6/10 to improve overall QOL Improve Self Care/Self Management Yes Patient to be Ind w/ HEP Yes Custodial Goals Number of Weeks 6 Increase Range of Motion Yes: Improve R hip flexion AROM to at least 100 Increase Strength Yes: Improve RLE MMT to 4-4+/5 grossly to assist with function Improve Transfers Yes: Perform sit to stand transfer with pain 6/10 or less Improve Ability to Shower/Bathe Self Yes: report ability to transfer in/out of bath tub with pain 6/10 or less Improve Ability to Climb Stairs Yes: 1 flight with HR with pain 6/10 or less to assist with community navigation Improve LEFI Score Yes: Improve score to 35-40/80 to improve overall QOL Decrease Subjective C/O Pain Yes: Improve pain at worst to 6/10 to improve overall QOL Patient to be Ind w/ Advanced HEP Yes Outpatient Therapy Plan of Care Treatment Plan May Include Therapeutic Exercise Including Home Yes Exercise Program Manual Therapy Techniques Yes Neuromuscular Re-education Yes Therapeutic Activities to Return to Yes Previous Functional/Work Level Gait Training Yes ADL/Self Care Education Yes Dry Needling Yes Thermal Modalities Yes Electrical Stimulation Yes Ultrasound/Phonophoresis Yes Iontophoresis Yes Massage Yes Group Therapy for Medicare Yes Eval/Re-Eval Yes Aquatic Therapy Yes Frequency Times per week 2 Duration Number of Weeks 4-6 Addendums This patient is a candidate for social No or vocational rehab? Patient/Guardian verbally acknowledges Yes understanding of treatment program and consents to further treatment? Patient/Guardian verbally acknowledges Yes understanding of diagnosis, prognosis and goals for treatment? Eval Complexity PT Charges 67782 - Moderate Complexity Shoulder/Elbow Eval Shoulder Objective Measurements Elbow Objective Measurements PHYSICIAN CERTIFICATION: I certify the specified therapy services for Dior Jamild are required, authorized, and reviewed every 30 days.
--- NOTE | 2023-08-14 17:26 | HMH.RHREAS ---
Rehab Reassessment Rehab OP Re-assessment Start: 07/18/23 09:12 Freq: Status: Active Protocol: Document 08/14/23 16:01 [email or web address] (Rec: 08/14/23 17:26 XAVI [id number]) E-signed By Josy Dhaliwal PT Lower Extremity Functional Index Activities Today, do you or would you have any difficulty at all with: a.Any of your usual work, housework or Quite a bit of difficulty school activities b. Your usual hobbies, recreational or Moderate difficulty sporting activities c. Getting into or out of the bath A little bit of difficulty d. Walking between rooms A little bit of difficulty e. Putting on your shoes or socks A little bit of difficulty f. Squatting Extreme difficulty or unable to perform activity g. Lifting an object, like a bag of Extreme difficulty or unable groceries from the floor to perform activity h. Performing light activities around Moderate difficulty your home i. Performing heavy activities around Extreme difficulty or unable your home to perform activity j. Getting into or out of a car Moderate difficulty k. Walking 2 blocks Extreme difficulty or unable to perform activity l. Walking a mile Extreme difficulty or unable to perform activity m. Going up or down 10 stairs (about 1 Quite a bit of difficulty flight of stairs) n. Standing for 1 hour Extreme difficulty or unable to perform activity o. Sitting for 1 hour A little bit of difficulty p. Running on even ground Extreme difficulty or unable to perform activity q. Running on uneven ground Extreme difficulty or unable to perform activity r. Making sharp turns while running fast Extreme difficulty or unable to perform activity s. Hopping Extreme difficulty or unable to perform activity t. Rolling over in bed A little bit of difficulty LEFI Score Lower Extremity Functional Index Score 23 Rehab Re-assessment Subjective Subjective Pt reports she was sick last week and unable to attend PT. Pt reports overall she feels 40% improved since starting PT . Pt reports pain at worst as 5/10 on VAS within the last week described as a sharp, brief anterior groin pain with certain movements. Pt reports pain continues to be aggravated by prolonged standing, moving her leg inward with walking/laying, stair climbing and prolonged walking. Pt reports she is now able to lift her right leg in /out of the car better. Objective Objective Notes Gait:antalgic with decreased WB on RLE R hip AROM: flexion 94, IR 32, ER 35, R hip MMT: flex 4/5, hip abd 4 /5, hip add 4-/5 (p!), hip IR/ ER 4/5, hip extension 4-/5, knee ext/flex 4+/5 Assessment Progress Assessment Progressing as Expected Assessment Notes Pt has attended 5 PT treatment sessions consisting of aerobic exercise, hip mobility , LE stretching/strengthening, modalities and HEP with good tolerance. Pt demonstrated improved R hip AROM, strength and LEFS score this date compared to the initial evaluation. Pt continues to report moderate anterior groin pain with increased weight bearing activities such as standing, walking and stair climbing. Overall, the pt would continue to benefit from skilled PT to further improve pain severity, hip AROM/ strength, gait and functional activity tolerance to improve overall QOL. Patient goals met ST/ Goals Not Met hip IR/ER AROM, LEFS score Revised Goals n/a Plan Plan Continue initial POC Frequency of Therapy 2x/week Duration of therapy 4 more weeks Time and Billing Re-Eval Time 14 Re-Eval Billing Units 1 PHYSICIAN CERTIFICATION: I certify the specified therapy services for Dior Hanley are required, authorized, and reviewed every 30 days.
--- NOTE | 2023-09-14 16:52 | HMH.RHREAS ---
Rehab Reassessment Rehab OP Re-assessment Start: 07/18/23 09:12 Freq: Status: Active Protocol: Document 09/14/23 16:05 [email or web address] (Rec: 09/14/23 16:52 XAVI [id number]) E-signed By Josy Dhaliwal PT Lower Extremity Functional Index Activities Today, do you or would you have any difficulty at all with: a.Any of your usual work, housework or A little bit of difficulty school activities b. Your usual hobbies, recreational or A little bit of difficulty sporting activities c. Getting into or out of the bath No difficulty d. Walking between rooms A little bit of difficulty e. Putting on your shoes or socks No difficulty f. Squatting Extreme difficulty or unable to perform activity g. Lifting an object, like a bag of Moderate difficulty groceries from the floor h. Performing light activities around No difficulty your home i. Performing heavy activities around Extreme difficulty or unable your home to perform activity j. Getting into or out of a car A little bit of difficulty k. Walking 2 blocks Extreme difficulty or unable to perform activity l. Walking a mile Extreme difficulty or unable to perform activity m. Going up or down 10 stairs (about 1 Moderate difficulty flight of stairs) n. Standing for 1 hour Quite a bit of difficulty o. Sitting for 1 hour A little bit of difficulty p. Running on even ground Extreme difficulty or unable to perform activity q. Running on uneven ground Extreme difficulty or unable to perform activity r. Making sharp turns while running fast Extreme difficulty or unable to perform activity s. Hopping Extreme difficulty or unable to perform activity t. Rolling over in bed No difficulty LEFI Score Lower Extremity Functional Index Score 36 Rehab Re-assessment Subjective Subjective Pt reports she feels 95% improved since starting PT. Pt reports continued brief, sharp pain with certain movements in weightbearing positions. Pt rates pain at worst as 3/10 on VAS. Pt reports this occurs with weightbearing activities such prolonged standing, walking and stair climbing. Pt reports she is now able to get in/out of her car, bath tub and don her shoes & socks I with minimal pain. Objective Objective Notes Gait: mildly antalgic, no AD R hip AROM: flexion 107, IR 40 , ER 40 R hip MMT: flex 4/5, hip abd 4 /5, hip add 4-/5 (p!), hip IR/ ER 4/5, hip extension 4-/5, knee ext/flex 4+/5 Assessment Progress Assessment Progressing as Expected Assessment Notes Pt has attended 12 PT treatment sessions consisting of aerobic exercise, hip mobility, LE stretching/ strengthening, manual therapy, modalities and HEP with good tolerance. Pt demonstrated improved subjective report of pain, R hip AROM, strength and LEFS score this date compared to the previous reassessment. Pt met all PT goals and is appropriate to discharge to independent HEP. Pt encouraged to use [facility] wellness center and trial [facility] water aerobic classes following discharge. Patient goals met ST/6 LT/8 Goals Not Met n/a Revised Goals n/a Plan Plan Discharge to independent HEP Time and Billing Re-Eval Time 12 Re-Eval Billing Units 1 PHYSICIAN CERTIFICATION: I certify the specified therapy services for Dior Hanley are required, authorized, and reviewed every 30 days.
== END 2023-09-14 17:00 | disposition home or self-care (01) ==
LOC: PT 16:00
PROVIDERS: Visit Provider Nurse Practitioner Family
DX: M16.0 Bilateral primary osteoarthritis of hip (principal)
CPT/HCPCS: 97010; 97014; 97110; 97140; 97163; 97164; 97530; G0283

== ENCOUNTER 2023-10-25 10:28 | Outpatient (CLI) | payer MEDICARE, SELFPAY ==
[2023-10-25 15:21] LABS: PHA INR Fingerstick 2.2 (0.9-1.1)
== END 2023-10-25 15:48 ==
LOC: ACC 10:31
PROVIDERS: PCP Internal Medicine Adolescent Medicine; Visit Provider Internal Medicine Adolescent Medicine
DX: Z79.01 Long term (current) use of anticoagulants (principal); Z51.81 Encounter for therapeutic drug level monitoring; Z86.718 Personal history of other venous thrombosis and embolism
CPT/HCPCS: 85610; 99211; G0463

== ENCOUNTER 2023-11-23 09:28 | Outpatient (CLI) | payer MEDICARE, SELFPAY ==
[2023-11-23 11:02] LABS: PHA INR Fingerstick 2.3 (0.9-1.1)
== END 2023-11-23 11:00 ==
LOC: ACC 09:28
PROVIDERS: PCP Nurse Practitioner Family; Visit Provider Internal Medicine Adolescent Medicine
DX: Z79.01 Long term (current) use of anticoagulants (principal); I48.91 Unspecified atrial fibrillation
CPT/HCPCS: 85610; 99211; G0463

== ENCOUNTER 2023-12-14 10:46 | Outpatient (CLI) | payer MEDICARE, SELFPAY ==
[2023-12-14 11:29] LABS: Basophils # 0.1 K/mm3 (0-0.2); Eosinophils # 0.2 K/mm3 (0.0-0.4); Eosinophils % 3.7 % (0.1-12.0); Hematocrit 37.8 % (37.0-47.0); Hemoglobin 11.6 g/dL (12.2-16.2); Lymphocytes # 1.5 K/mm3 (0.7-4.5); Lymphocytes % 31.3 % (10-50); Mean Corpuscular HGB Conc 30.8 g/dL (31.8-35.4); Mean Corpuscular Hemoglobin 26.4 pg (27.0-31.2); Mean Corpuscular Volume 85.7 fl (81-99); Mean Platelet Volume 9.1 fl (7.4-10.4); Monocytes # 0.3 K/mm3 (0.1-1.0); Monocytes % 6.6 % (1.7-9.3); Neutrophils # 2.8 K/mm3 (1.8-7.8); Neutrophils % 57.4 % (37.0-80.0); Platelet Count 258 K/mm3 (142-424); Red Cell Distribution Width 15.3 % (11.5-17.5); White Blood Count 4.9 K/mm3 (4.8-10.8)
[2023-12-14 12:18] LABS: Hemoglobin A1C 7.5 % (4.0-6.0)
[2023-12-14 12:23] LABS: Alanine Aminotransferase 73 U/L (12-78); Albumin Level 3.9 g/dl (3.5-5.0); Albumin/Globulin Ratio 1.1 (1.1-1.8); Alkaline Phosphatase 54 U/L (38-126); Anion Gap 12.7 mEq/L (5-15); Aspartate Amino Transferase 104 U/L (14-36); Bilirubin,Total 0.5 mg/dl (0.2-1.3); Blood Urea Nitrogen 11 mg/dl (7-17); Calcium 9.5 mg/dl (8.4-10.2); Carbon Dioxide 25 mmol/L (22.0-30.0); Chloride 107 mmol/L (98-107); Chol/HDL Ratio 5.5 (1-3.5); Cholesterol 227 mg/dl (140-200); Estimated Glomerular Filt Rate 71 ml/min (>60); GFR (African American) 86 ML/MIN (>60); Globulin 3.4 g/dL (1.3-3.2); Glucose 167 mg/dl (74-100); HDL Cholesterol 41 mg/dl (40-60); Potassium 4.7 mmoL/L (3.5-5.1); Sodium 140 mmol/L (136-145); Total Protein,Serum 7.3 g/dl (6.3-8.2); Triglycerides 157 mg/dl (30-150); VLDL Cholesterol 31 mg/dL (0-40)
[2023-12-14 12:24] LABS: Creatinine,Urine Random 136 mg/dL (Not Estab.)
[2023-12-14 12:28] LABS: Microalbumin/Creatinine Ratio 56.1
[2023-12-14 12:34] LABS: Direct LDL Cholesterol 141.75 mg/dL (100-129)
[2023-12-14 12:40] LABS: 25-OH Vitamin D, Total 84.9 ng/mL (30-100)
[2023-12-14 12:46] LABS: Prothrombin Time 20.9 seconds (10.1-12.5)
[2023-12-14 13:12] LABS: Vitamin B12 583 pg/mL (239-931)
== END 2023-12-14 23:59 | disposition home or self-care (01) ==
LOC: LAB 10:47
PROVIDERS: PCP Nurse Practitioner Family; Visit Provider Internal Medicine Adolescent Medicine
DX: N18.2 Chronic kidney disease, stage 2 (mild) (principal); Z79.01 Long term (current) use of anticoagulants; E11.22 Type 2 diabetes mellitus with diabetic chronic kidney disease; E55.9 Vitamin D deficiency, unspecified; E78.2 Mixed hyperlipidemia; I82.403 Acute embolism and thrombosis of unspecified deep veins of lower extremity, bilateral; E53.8 Deficiency of other specified B group vitamins
CPT/HCPCS: 36415; 80053; 80061; 82043; 82306; 82570; 82607; 83036; 85025; 85610

== ENCOUNTER 2023-12-15 10:46 | Outpatient (CLI) | payer MEDICARE, SELFPAY ==
[2023-12-15 11:05] VITALS: BP 157/68; PULSE 65; RESP 18; TEMP 36.8; O2SAT 98
[2023-12-15] MEDS: ZOLEDRONIC ACID/MANNITOL-WATER 5 MG/100 ML PGGYBK.BTL 400 MG IV (11:10)
[2023-12-15 11:31] VITALS: BP 145/61; PULSE 77
[2023-12-15] MEDS: 0.9 % SODIUM CHLORIDE 50 ML IV (11:31)
== END 2023-12-15 11:33 | disposition home or self-care (01) ==
LOC: INF 10:47
PROVIDERS: PCP Nurse Practitioner Family; Visit Provider Nurse Practitioner Family
DX: I82.409 Acute embolism and thrombosis of unspecified deep veins of unspecified lower extremity (principal)
CPT/HCPCS: 96374; J3489

== ENCOUNTER 2023-12-20 14:44 | Outpatient (CLI) | payer MEDICARE, SELFPAY ==
--- NOTE | 2023-12-20 14:47 | XR_ITS ---
FINAL REPORT CLINICAL HISTORY: SCREENING COMPARISON: 08/31/2022 FINDINGS: Using L1-4, the bone mineral density of the spine is 1.029 g/cm2, corresponding to T-score of -0.2 which is within normal limits but likely falsely elevated secondary to hypertrophic changes. This previously was 1.040 with a T-score of -0.1. Using the left hip, the bone mineral density of the femoral neck is 0.589 g/cm2, corresponding to a T-score of -2.3 which is consistent with low bone density. Previously this was 0.538 with a T-score of -2.8. Using the right hip, the bone mineral density of the femoral neck is 0.659 g/cm2, corresponding to a T-score of -1.7 which is consistent with low bone density. Previously this was 0.685 with a T-score of-1.5. FRAX not reported because some T-score at or below-2.5 and the patient is being treated for osteoporosis. NOTE: T-score: Standard deviation compared with peak bone mass of young adult mean. *Following the recommendations of the International Society of Bone densitometry, classification of hip BMD is based on the lower of two T-scores; total hip or femoral neck. IMPRESSION: Diminished bone mineral density consistent with low bone density. Reviewed, Interpreted and Dictated by Gilberto Turner III, MD Transcribed by Duyen Gomez Authenticated and [facility]
--- NOTE | 2023-12-20 14:47 | MM_ITS ---
PROCEDURE INFORMATION: Exam: MG Bilateral Screening 3D Mammography Exam date and time: 12/20/2023 2:33 PM Age: 68 years old Clinical indication: Screening examination TECHNIQUE: Imaging protocol: Bilateral Screening tomosynthesis and 2D mammography including computer-aided detection (CAD) when performed. COMPARISON: 1. MG MM DIG SCREENING MAMM BI W/CAD 08/31/2022 9:47 AM 2. MG MM DIG SCREENING MAMM BI W/CAD 08/30/2021 9:03 AM FINDINGS: MAMMOGRAPHY: Breast composition: The breasts are almost entirely fatty. Mass: None. Architectural distortion: None. Calcifications: No suspicious calcifications. Asymmetric density: None. Skin thickening: None. Axillary adenopathy: None. IMPRESSION: No mammographic evidence of malignancy. Annual screening is recommended unless otherwise clinically indicated. ASSESSMENT: BI-RADS Category 1: Negative.
== END 2023-12-20 23:59 | disposition home or self-care (01) ==
LOC: RAD 14:44
PROVIDERS: PCP Nurse Practitioner Family; Visit Provider Nurse Practitioner Family
DX: Z12.31 Encounter for screening mammogram for malignant neoplasm of breast (principal); M81.0 Age-related osteoporosis without current pathological fracture
CPT/HCPCS: 77063; 77067; 77080

== ENCOUNTER 2023-12-21 08:33 | Outpatient (CLI) | payer MEDICARE, SELFPAY ==
--- NOTE | 2023-12-21 08:39 | US_ITS ---
FINAL REPORT CLINICAL HISTORY: ELEVATED LIVER ENZYMES COMPARISON: None FINDINGS: Sonographic images of the right upper quadrant were obtained. The pancreas is normal in appearance. There is increased echogenicity in the liver, consistent with fatty infiltration. The gallbladder has been surgically resected. There is no evidence of biliary ductal dilatation.The common duct measures 3 mm. Limited images of the right kidney are unremarkable. IMPRESSION: Prior cholecystectomy, without evidence of biliary ductal dilatation. Fatty infiltration of the liver. Reviewed, Interpreted and Dictated by Gilberto Turner III, MD Transcribed by Trinidad Rowland Authenticated and [facility]
[2023-12-21 10:26] LABS: 25-OH Vitamin D, Total 81.5 ng/mL (30-100)
[2023-12-21 10:37] LABS: Thyroid Stimulating Hormone 3.49 uIU/mL (0.465-4.68)
[2023-12-21 10:41] LABS: Ferritin 19.7 ng/ml (11.1-264)
== END 2023-12-21 23:59 | disposition home or self-care (01) ==
LOC: RAD 08:35
PROVIDERS: Specialist; PCP Nurse Practitioner Family; Visit Provider Nurse Practitioner Family
DX: E55.9 Vitamin D deficiency, unspecified (principal); L65.9 Nonscarring hair loss, unspecified; R53.83 Other fatigue; R73.09 Other abnormal glucose; R74.8 Abnormal levels of other serum enzymes
CPT/HCPCS: 36415; 76705; 82306; 82728; 83036; 84443

== ENCOUNTER 2024-02-13 14:50 | Outpatient (CLI) | payer MEDICARE, SELFPAY ==
[2024-02-13 15:38] LABS: PHA INR Fingerstick 2.1 (0.9-1.1)
== END 2024-02-13 15:41 ==
LOC: ACC 14:50
PROVIDERS: PCP Internal Medicine Adolescent Medicine; Visit Provider Internal Medicine Adolescent Medicine
DX: Z79.01 Long term (current) use of anticoagulants (principal); Z86.718 Personal history of other venous thrombosis and embolism
CPT/HCPCS: 85610; 99211; G0463

== ENCOUNTER 2024-03-13 15:41 | Outpatient (CLI) | payer MEDICARE, SELFPAY ==
[2024-03-13 16:04] LABS: PHA INR Fingerstick 2.2 (0.9-1.1)
== END 2024-03-13 16:07 ==
LOC: ACC 15:42
PROVIDERS: PCP Nurse Practitioner Family; Visit Provider Internal Medicine Adolescent Medicine
DX: Z79.01 Long term (current) use of anticoagulants (principal); Z86.718 Personal history of other venous thrombosis and embolism
CPT/HCPCS: 85610; 99211; G0463

== ENCOUNTER 2024-03-22 09:23 | Outpatient (CLI) | payer MEDICARE, SELFPAY ==
[2024-03-22 10:06] LABS: Basophils % 0.6 % (0.1-2.0); Eosinophils # 0.2 K/mm3 (0.0-0.4); Eosinophils % 3.7 % (0.1-12.0); Hematocrit 39.1 % (37.0-47.0); Hemoglobin 12.7 g/dL (12.2-16.2); Lymphocytes # 1.3 K/mm3 (0.7-4.5); Lymphocytes % 25.9 % (10-50); Mean Corpuscular HGB Conc 32.4 g/dL (31.8-35.4); Mean Corpuscular Hemoglobin 26.6 pg (27.0-31.2); Mean Platelet Volume 8.9 fl (7.4-10.4); Monocytes # 0.3 K/mm3 (0.1-1.0); Monocytes % 6.5 % (1.7-9.3); Neutrophils # 3.2 K/mm3 (1.8-7.8); Neutrophils % 63.2 % (37.0-80.0); Platelet Count 238 K/mm3 (142-424); Red Blood Count 4.76 M/mm3 (4.20-5.40); Red Cell Distribution Width 15.3 % (11.5-17.5)
[2024-03-22 10:39] LABS: Alanine Aminotransferase 66 U/L (12-78); Albumin Level 4.2 g/dl (3.5-5.0); Albumin/Globulin Ratio 1.5 (1.1-1.8); Alkaline Phosphatase 52 U/L (38-126); Aspartate Amino Transferase 76 U/L (14-36); Bilirubin,Total 0.5 mg/dl (0.2-1.3); Blood Urea Nitrogen 18 mg/dl (7-17); Calcium 10.1 mg/dl (8.4-10.2); Carbon Dioxide 27 mmol/L (22.0-30.0); Chloride 105 mmol/L (98-107); Estimated Glomerular Filt Rate 55 ml/min (>60); GFR (African American) 67 ML/MIN (>60); Globulin 2.8 g/dL (1.3-3.2); Glucose 175 mg/dl (74-100); Sodium 139 mmol/L (136-145)
[2024-03-22 10:43] LABS: Anion Gap 12.2 mEq/L (5-15); Potassium 5.2 mmoL/L (3.5-5.1)
[2024-03-22 12:43] LABS: Hemoglobin A1C 7.4 % (4.0-6.0)
== END 2024-03-22 23:59 | disposition home or self-care (01) ==
LOC: LAB 09:24
PROVIDERS: PCP Nurse Practitioner Family; Visit Provider Nurse Practitioner Family
DX: E11.22 Type 2 diabetes mellitus with diabetic chronic kidney disease (principal); R10.9 Unspecified abdominal pain; J31.0 Chronic rhinitis
CPT/HCPCS: 36415; 80053; 83036; 85025

== ENCOUNTER 2024-03-28 06:53 | Outpatient (CLI) | payer MEDICARE, SELFPAY ==
--- NOTE | 2024-03-28 06:58 | CT_ITS ---
FINAL REPORT TECHNIQUE: Thin section axial CT with coronal reconstruction without IV contrast This study was performed with techniques to keep radiation doses as low as reasonably achievable, (ALARA). Individualized dose reduction techniques using automated exposure control or adjustment of mA and/or kV according to the patient's size were employed. CLINICAL HISTORY: CHRONIC RHINITIS COMPARISON: None FINDINGS: CT SINUS: No fracture is present. Paranasal sinuses are clear. The TMJs are intact. No paranasal sinus air-fluid levels are identified. There is mild nasal septal deviation to the left. IMPRESSION: No acute abnormality of the paranasal sinuses identified. Reviewed, Interpreted and Dictated by Leyla Irene MD Transcribed by Trinidad Rowland Authenticated and [facility]
== END 2024-03-28 23:59 | disposition home or self-care (01) ==
LOC: RAD 06:54
PROVIDERS: PCP Nurse Practitioner Family; Visit Provider Nurse Practitioner Family
DX: J31.0 Chronic rhinitis (principal)
CPT/HCPCS: 70486

== ENCOUNTER 2024-04-25 13:51 | Outpatient (CLI) | payer MEDICARE, SELFPAY ==
[2024-04-25 15:32] LABS: PHA INR Fingerstick 2.4 (0.9-1.1)
== END 2024-04-25 15:34 ==
LOC: ACC 13:52
PROVIDERS: PCP Internal Medicine Adolescent Medicine; Visit Provider Internal Medicine Adolescent Medicine
DX: Z79.01 Long term (current) use of anticoagulants (principal); Z86.718 Personal history of other venous thrombosis and embolism
CPT/HCPCS: 85610; 99211; G0463

== ENCOUNTER 2024-05-02 09:09 | Outpatient (CLI) | payer MEDICARE, SELFPAY ==
--- NOTE | 2024-05-02 09:13 | XR_ITS ---
FINAL REPORT CLINICAL HISTORY: LBP, PAIN COMPARISON: None FINDINGS: 7 views of the lumbosacral spine were obtained. The vertebrae are normal height. There is moderate disc space narrowing of L4-5 and L5-S1. Moderate facet sclerosis is noted in the lower lumbar spine. There is a 9 mm stone in the lower pole of the left kidney. There is no instability with flexion or extension. IMPRESSION: Moderate degenerative change without acute bony abnormality or instability on flexion or extension. 9 mm left kidney stone. Reviewed, Interpreted and Dictated by Chavez Renae MD Transcribed by Duyen Gomez Authenticated and [facility]
== END 2024-05-02 23:59 | disposition home or self-care (01) ==
LOC: RAD 09:09
PROVIDERS: PCP Nurse Practitioner Family; Visit Provider Nurse Practitioner Family
DX: M54.50 Low back pain, unspecified (principal); G89.29 Other chronic pain
CPT/HCPCS: 72114

== ENCOUNTER 2024-05-08 14:51 | Outpatient (RCR) | payer MEDICARE, SELFPAY ==
--- NOTE | 2024-05-08 15:55 | HMH.PTOPEV ---
PT Outpatient Evaluation Rehab PT Outpatient Evaluation Start: 05/08/24 14:54 Freq: Status: Active Protocol: Document 05/08/24 14:54 XAVI (Rec: 05/08/24 15:55 XAVI [id number]) E-signed By Josy Dhaliwal, PT Outpatient Therapy Subjective History Subjective History Pt is a 68 y/o female who presents to PT for complaint of mid to low right-sided back pain. Pt reports onset of pain ~3 months ago when she picked up a 2 year old and heard a pop in her back resulting in severe pain. Pt reports gradual worsening of pain since onset. Pt reports initial symptoms of pain with bending, twisting and reaching . Pt reports new onset of pain with breathing, laughing, coughing and sneezing that started ~2 weeks ago. Pt also reports pain is aggravated by standing and walking for any amount of time. Pt had a lumbar spine radiograph on with impression of Moderate degenerative change without acute bony abnormality or instability on flexion or extension. 9 mm left kidney stone. Pt denies having imaging of the thoracic spine. Pt denies paresthesia with exception of her L thigh which only occurs when lying in supine, pt states this has been going on for ~20 years. Pt denies b/b dysfunction or n /v. Medical History: Osteoporosis, Type II Diabetes with CGM, Fibromyalgia, GERD, COPD, Hx of TBI ~10 years ago, Hx of multiple blood clots New diagnosis of cancer in past 12 No months? Chief Complaint Pain Symptom Type Ache,Sharp,Dull,Stabbing Symptoms Relieved By Rest/Positioning Symptoms Aggravated By Standing,Bending/Stooping, Physical Activity,Twisting, Walking,Lifting,Sneeze/ Coughing Current Functional Limitations Reaching,Lifting,Housework, Standing,Recreation Activity, Walking,Bending/Stooping Symptom Description Constant but Variable Level of pain today (0-10) 3 Pain scale - at its best (0-10) 3 Pain scale - at its worst (0-10) 10 Lumbopelvic Eval Palapation tenderness bilateral thoracic spinal tenderness Yes: SP of T7-10 paraspinal tenderness Yes: R thoracolumbar PS Lumbar/Sacral Palpation Findings Tenderness,Muscle Guarding Lumbar/Sacral Palpation Overall Comment 2/4 TTP Accessory Movement T-spine Vertebrae Accessory Movements Central P/A Gruver that Elicit Symptoms T10 bilateral Range of Motion Lumbar Spine Active Flexion Range of 40 Motion (degrees) Lumbar Spine Active Extension Range of 5 Motion (degrees) Left Lumbar Spine Lateral Flexion Active 12 Range of Motion (degrees) Right Lumbar Spine Lateral Flexion 5 Active Range of Motion (degrees) Manual Muscle Test Bilateral Knee Extension Strength Grade 5 Normal Knee Flexion Strength Grade 5 Normal Hip Flexion Strength Grade 4- Good- Hip Abduction Strength Grade 4- Good- Hip Adduction Strength Grade 4- Good- Hip Extension Strength Grade 4- Good- Ankle Dorsiflexion Strength Grade 5 Normal Altered Sensation LE Dermatome Level L2,L3,L4 Comment decreased light touch left compared to right Oswestry Index Section 1 Pain Intensity The pain is severe and does not vary much Section 2 Personal Care (Washing,Dresing) increase the pain, but I manage not to change my way of doing it Section 3 Lifting I can only lift very light weights at most Section 4 Walking I cannot walk at all without increasing pain Section 5 Sitting Pain prevents me from sitting for more than 1/2 hour Section 6 Standing I cannot stand more than 10 minutes without increasing pain Section 7 Sleeping I get pain in bed, but it does not prevent me from sleeping well Section 8 Social Life Pain has restricted my social life and I do not go out often Section 9 Traveling Pain restricts me to short necessary journeys under 30 minutes Section 10 Changing Degreee of Pain My pain is gradually getting worse Score and Risk Level Oswestry Sc 36 Oswestry Risk Level Completely Disabled Outpatient Therapy Assessment Impairments Problems/Impairmments Palpation Tenderness,Impaired Range of Motion,Impaired Strength,Impaired Walking, Impaired Standing,Impaired Lifting,Impaired Household Care,Impaired Bending, Subjective C/O Pain,Impaired Self Care/Self Management Prognosis Rehab Potential Good Clinical Impression Consistent with Diagnosis Yes Consistent with thoracolumbar pain Additional details: Refer pt for thoracic spine radiograph to rule out compression fracture prior to beginning PT treatment/ exercises Short Term Goals Number of Weeks 3 Decrease Subjective C/O Pain Yes: Improve pain at worst to 8/10 to improve overall QOL Improve Self Care/Self Management Yes Patient to be Ind w/ HEP Yes Adult Psychiatrist Goals Number of Weeks 6 Increase Range of Motion Yes: Improve lumbar AROM flex to at least 60, ext to 10, LF to 15 Increase Strength Yes: Improve BLE MMT to 4+/5 grossly to assist with function Improve Oswestry Score Yes: Improve score to 26 or less to improve overall QOL Decrease Subjective C/O Pain Yes: Improve pain at worst to 6/10 to improve overall QOL Outpatient Therapy Plan of Care Treatment Plan May Include Therapeutic Exercise Including Home Yes Exercise Program Manual Therapy Techniques Yes Neuromuscular Re-education Yes Therapeutic Activities to Return to Yes Previous Functional/Work Level ADL/Self Care Education Yes Mechanical Traction Yes Dry Needling Yes Thermal Modalities Yes Electrical Stimulation Yes Ultrasound/Phonophoresis Yes Iontophoresis Yes Massage Yes Group Therapy for Medicare Yes Eval/Re-Eval Yes Frequency Times per week 2 Duration Number of Weeks 4-6 Addendums This patient is a candidate for social No or vocational rehab? Patient/Guardian verbally acknowledges Yes understanding of treatment program and consents to further treatment? Patient/Guardian verbally acknowledges Yes understanding of diagnosis, prognosis and goals for treatment? Eval Complexity PT Charges 89279 - Low Complexity Shoulder/Elbow Eval Shoulder Objective Measurements Elbow Objective Measurements PHYSICIAN CERTIFICATION: I certify the specified therapy services for Dior Hanley are required, authorized, and reviewed every 30 days.
== END 2024-05-08 23:59 | disposition home or self-care (01) ==
LOC: PT 14:51
PROVIDERS: Visit Provider Nurse Practitioner Family
DX: M47.9 Spondylosis, unspecified (principal)
CPT/HCPCS: 97163

== ENCOUNTER 2024-05-09 10:17 | Outpatient (CLI) | payer MEDICARE, SELFPAY ==
--- NOTE | 2024-05-09 10:22 | XR_ITS ---
FINAL REPORT CLINICAL HISTORY: MID BACK PAIN x3 months COMPARISON: None FINDINGS: Three views of the thoracic spine were obtained. There is no fracture present. There is 15 degrees of thoracic scoliosis convex to the right and 15 degrees of thoracolumbar scoliosis convex to the left. There is no malalignment. There are no significant degenerative changes. IMPRESSION: No acute process. Reviewed, Interpreted and Dictated by Chavez Renae MD Transcribed by Duyen Gomez Authenticated and [facility]
== END 2024-05-09 23:59 | disposition home or self-care (01) ==
LOC: RAD 10:19
PROVIDERS: PCP Nurse Practitioner Family; Visit Provider Nurse Practitioner Family
DX: M54.9 Dorsalgia, unspecified (principal)
CPT/HCPCS: 72072

== ENCOUNTER 2024-06-05 16:00 | Outpatient (RCR) | payer MEDICARE, SELFPAY ==
--- NOTE | 2024-06-05 18:09 | HMH.RHREAS ---
Rehab Reassessment Rehab OP Re-assessment Start: 05/15/24 07:59 Freq: Status: Active Protocol: Document 06/05/24 16:35 [email or web address] (Rec: 06/05/24 18:08 XAVI [id number]) E-signed By Josy Dhaliwal, PT Oswestry Index Section 1 Pain Intensity The pain is moderate and does not vary much Section 2 Personal Care (Washing,Dresing) my way of washing or dressing even though it causes some pain Section 3 Lifting I can only lift very light weights at most Section 4 Walking I cannot walk more than 1/4 mile without increasing pain Section 5 Sitting Pain prevents me from sitting for more than one hour Section 6 Standing I cannot stand more than 10 minutes without increasing pain Section 7 Sleeping I get pain in bed, but it does not prevent me from sleeping well Section 8 Social Life Pain has restricted my social life and I do not go out often Section 9 Traveling Pain restricts me to short necessary journeys under 30 minutes Section 10 Changing Degreee of Pain My pain seems to be getting better, but improvement is slow Score and Risk Level Oswestry Sc 29 Oswestry Risk Level Severe Disability Rehab Re-assessment Subjective Subjective Pt reports she feels 60% improved since starting PT. Pt reports continued thoracolumbar pain at worst as 6/10 within the last week. Pt reports mid back pain is aggravated by taking a deep breath, twisting/rotating, and bending forward that resolves upon returning to standing. Pt reports low back pain is aggravated by prolonged standing, sitting, walking and lifting. Pt reports compliance with HEP without issues. Objective Objective Notes Palpation: 1/ TTP of R thoracic paraspinals and B lumbar paraspinals Lumbar AROM: flex 65, ext 15, RLF 10, LLF 15 BLE MMT: 07/13 grossly Assessment Progress Assessment Progressing as Expected Assessment Notes Pt has attended 6 PT treatment sessions consisting of aerobic exercise, thoracolumbar mobility, LE stretching, LE/core strengthening and modalities with fair-good tolerance. Pt demonstrated improved subjective report of pain, ROMEO score, lumbar AROM and strength this date compared to the initial evaluation. Pt continues to report moderate- severe thoracolumbar pain with activities such as bending, twisting, lifting, standing and walking. Overall the pt would continue to benefit from skilled PT to further improve subjective report of pain, thoracolumbar mobility, strength and functional activity tolerance to improve overall QOL. Patient goals met ST/3 Goals Not Met LTG Revised Goals n/a Plan Plan Continue POC Frequency of Therapy 2x/week Duration of therapy 2-4 more weeks Time and Billing Re-Eval Time 12 Re-Eval Billing Units 0 Charge for PT reassessment? No Charge for OT reassessment? No PHYSICIAN CERTIFICATION: I certify the specified therapy services for Dior Hanley are required, authorized, and reviewed every 30 days.
== END 2024-06-05 23:59 | disposition home or self-care (01) ==
LOC: PT 16:00
PROVIDERS: Visit Provider Nurse Practitioner Family
DX: M47.9 Spondylosis, unspecified (principal)
CPT/HCPCS: 97014; 97110; 97530; G0283

== ENCOUNTER 2024-06-06 08:52 | Outpatient (CLI) | payer MEDICARE, SELFPAY ==
[2024-06-06 11:55] LABS: PHA INR Fingerstick 1.9 (0.9-1.1)
== END 2024-06-06 12:04 ==
LOC: ACC 08:53
PROVIDERS: PCP Internal Medicine Adolescent Medicine; Visit Provider Internal Medicine Adolescent Medicine
DX: Z79.01 Long term (current) use of anticoagulants (principal); Z86.718 Personal history of other venous thrombosis and embolism
CPT/HCPCS: 85610; 99211; G0463

== ENCOUNTER 2024-06-18 16:00 | Outpatient (RCR) | payer MEDICARE, SELFPAY | END 2024-06-18 23:59 | disposition home or self-care (01) | LOC: PT 16:00 | PROVIDERS: Visit Provider Nurse Practitioner Family | DX: M47.9 Spondylosis, unspecified (principal) | CPT/HCPCS: 97014; 97110; 97530; G0283 ==

== ENCOUNTER 2024-07-18 08:56 | Outpatient (CLI) | payer MEDICARE, SELFPAY ==
[2024-07-18 09:45] LABS: PHA INR Fingerstick 2.2 (0.9-1.1)
== END 2024-07-18 09:47 ==
LOC: ACC 08:57
PROVIDERS: PCP Internal Medicine Adolescent Medicine; Visit Provider Internal Medicine Adolescent Medicine
DX: Z79.01 Long term (current) use of anticoagulants (principal); Z86.718 Personal history of other venous thrombosis and embolism
CPT/HCPCS: 85610; 99211; G0463

== ENCOUNTER 2024-08-28 08:05 | Outpatient (CLI) | payer MEDICARE, SELFPAY ==
[2024-08-28 09:55] LABS: PHA INR Fingerstick 2.3 (0.9-1.1)
== END 2024-08-28 09:56 ==
LOC: ACC 08:06
PROVIDERS: PCP Internal Medicine Adolescent Medicine; Visit Provider Internal Medicine Adolescent Medicine
DX: Z79.01 Long term (current) use of anticoagulants (principal); Z86.718 Personal history of other venous thrombosis and embolism
CPT/HCPCS: 85610; 99211; G0463

== ENCOUNTER 2024-09-23 09:41 | Outpatient (CLI) | payer MEDICARE, SELFPAY ==
--- OUTSIDE RECORDS SUMMARY | 2024-07-13 17:30 | XMS_ITS ---
Author Organization [facility] Address [address] [facility] [address] [facility] [address] [place] [address] Care Team Providers Care Horse Trader Name Role Phone Sierra Jerry Primary Care [...] SoloStar Unknown Drug Allergy Active Substance with 9-xohoptj-4-methylgl utaryl-coenzyme A reductase inhibitor mechanism of action (substance) Statins itching Drug Allergy Active Penicillin rash Drug Allergy Active valacyclovir valACYclovir cough/wheeze Drug Allergy Active REASON FOR VISIT [facility] To [facility] Conversion Encounter Medications Medication SIG (Take, [...] review and pick correct strength-formulati on from Red Lambda options. If intended option is not shown, [...] review and pick correct strength-formulati on from Red Lambda options. If intended option is not shown, discontinue and re-order from Quick Search* Active ONE TOUCH ULTRA TEST STRIPS BLUE DX: E11.22 TEST TID & NEEDED for 90 DAYS *Please review for potential replacement for e-prescription and drug interaction check* 07/06/2013 Active Dexcom G7 Greenhouse Instructor DIRECTED CONTINUOUS GLUCOSE MONITORING for 30 DAY(S) *Please review and pick correct strength-formulati on from Red Lambda options. If intended option is not shown, [...] review and pick correct strength-formulati on from Red Lambda options. If intended option is not shown, [...] Active Encounters Encounter Location Date Provider Diagnosis [facility] [place] [address] [facility] [address] [place] [address] 07/13/2024 Provider Migration Type 2 diabetes mellitus [...] review a nd pick correct strength-formulation from Red Lambda options. If intended option is not shown, discontinue and re-order from Quick Search* [email or web address] G7 Sensor 1 SENSOR DIRECTED FOR CONTINUOUS GLUCOSE MONITORING for 90 DAYS *Please review an d pick correct strength-formulation from Red Lambda options. If intended option is not shown, discontinue and re-order from Quick Search* Mounjaro 2.5 MG/0.5 ML 2.5 MG SUBCUTANEOUSLY ONCE A WEEK for 84 DAYS 05/02/2024 *Please review a nd pick correct [facility]. If intended option is not shown, [...] 2 times a day for 90 days Progress Notes * Elenita CONTRERASOB: (68 yo F)Acc No.[id number]:07/13/2024 Patient: Dior CUNNINGHAM Provider: David Pereira :1955 A ge:68 Y S ex:Female Date:07/13/2024 Address:[facility] [address], [place], [id number] Pcp:Sierra Jerry Subjective: * Chief Complaints: * 1 . [facility] To [facility] Conversion Encounter. * Medical History: * Medications: [...] nostril twice daily , Taking Dexcom G7 Greenhouse Instructor DIRECTED CONTINUOUS GLUCOSE MONITORING , Notes to Pharmacist: *Please review and pick correct strength-formulation from LightSquaredspan options. If intended option is not shown, [...] *Please review and pick correct strength-formulation from LightSquaredspan options. If intended option is not shown, [...] Electronic signature of Prov ider Migration on 09/23/2024 at 09:45 AM EDT Sign off status: Pending * Provider: David middleton Migration Date: 0 07/13/2024 Generated for Mirta lynne/Evaristo/Yuri on: 0 09/23/2024 09:45 AM EDT
--- OUTSIDE RECORDS SUMMARY | 2024-09-23 09:45 | XMS_ITS | Clinical Summary ---
Author Organization [employer] [employer] Address [address] [place] [address] Care Team Providers Care Manager Delivery Name Role Phone Unavailable Primary Care Provider Unavailabl e Medications No known medications Social History Tobacco Use Types Packs/Day Years Used Date Smoking Tobacco: Never Assessed Comments Unknown Sex and Gender Information Value Date Recorded Sex Assigned at Not on file Legal Sex Female 10:09 AM CDT Gender Identity Not on file Sexual Orientation Not on file Plan of Treatment Not on file Insurance [place] [id number] [facility] MEDICARE ADVANTAGE
--- OUTSIDE RECORDS SUMMARY | 2024-09-23 09:45 | XMS_ITS | Encounter Summary ---
Author Organization [facility] Address [address] [place] [address] Care Team Providers Care Spray Dry Operator Name Role Phone Unavailable Primary Care Provider Unavailabl e Encounter Details Date Type Department Care Team (Late st Contact Info) Description 10/13/2020 Transcribed Document [facility] Family Medicine [address] [place] [address] ProviderDaniela MD [address], [place] [address] Social History Tobacco Use Types Packs/Day Years Used Date Smoking Tobacco: Never Assessed Comments Unknown Sex and Gender Information Value Date Recorded Sex Assigned at Not on file Legal Sex Female 10:09 AM CDT Gender Identity Not on file Sexual Orientation Not on file documented as of this encounter Miscellaneous Notes * Cerner Conversion Note - Daniela ProviderMD - 10/13/2020 3:38 AM CDT [facility] Emergency Department Depart Summary PERSON INFORMATION Name Dior Hanley Age 64 Years 1955 Sex Female Language PCP Marital Status Phone [phone] Visit Id Visit Reason N and/or V Specialty Enc Type Emergency Med Service Referred by Track Group [facility] Discharge Tracking Id [id number] Checkout Checkin 10/12/2020 20:44:00 Acuity 3 - Urgent [facility] Dispo Type Arrival 10/12/2020 20:44:00 Reg Status LOS 000 02:54 Address: ALEJANDRA KENT [address] [place], [place] [id number] POWERFORM PHYSICIAN NOTES VITALS INFORMATION Vital Sign Triage Temp 98.8 Temp Route Pulse Rate 88 Respiratory Rate 18 Blood Pressure 177/ 80 LOCATION INFORMATION Arrival Nurse Unit Room Bed 10/12/2020 20:44:00 [facility] ED Waitroom ([facility]) 10/12/2020 20:47:59 [facility] ED 2 MEDICAL INFORMATION Allergy Info: Benadryl; penicillin; erythromycin PATIENT EDUCATION INFORMATION Instructions: Benign Positional Vertigo Follow up: With: Address: When: Follow up with primary care provider Within As needed Comments: Meclizine 25 mg 1 3 x a day for the dizziness Zofran 4 mg ODT 1 to the mouthand let disolve q 6 hours prn N&V Return to the ED as needed DIAGNOSIS documented in this encounter Plan of Treatment Not on file documented as of this encounter Visit Diagnoses Not on filedocumented in this encounter
--- OUTSIDE RECORDS SUMMARY | 2024-09-23 09:45 | XMS_ITS | Encounter Summary ---
Author Organization [employer] Address [address] [place] [address] Care Team Providers Care Office Manager Executive Assistant Name Role Phone Unavailable Primary Care Provider Unavailabl e Encounter Details Date Type Department Care Team (Late st Contact Info) Description 10/13/2020 Transcribed Document [facility] [place] [address] [place] [address] ProviderDaniela MD [address], [place] [id number] Social History Tobacco Use Types Packs/Day Years Used Date Smoking Tobacco: Never Assessed Comments Unknown Sex and Gender Information Value Date Recorded Sex Assigned at Not on file Legal Sex Female 10:09 AM CDT Gender Identity Not on file Sexual Orientation Not on file documented as of this encounter Miscellaneous Notes * Cerner Conversion Note - Daniela Lira MD - 10/13/2020 3:55 AM CDT [facility] ADDRESS [place], [place] [phone] Name:Hayley Hanley Visit Date:10/12/2020 20:44:00 Emergency Department Care Providers: Physician: LEXUS BELTRAN MD Physician: Our doctors and staff appreciate your choice of [facility] for your emergency medical care. Read these instructions carefully. Please call us if you have any questions about your medical problem. [facility] Emergency Department [phone] [facility] Emergency Department [phone] [facility] Emergency Department [phone] Patient Education Materials Hayley Hanley Crow has been given the following patient education materials: ENT Benign Positional Vertigo Vertigo is the feeling that you or your surroundings are moving when they are not. Benign positional vertigo is the most common form of vertigo. This is usually a harmless condition (benign). This condition is positional. This means that symptoms are triggered by certain movements and positions. This condition can be dangerous if it occurs while you are doing something that could cause harm to you or others. This includes activities such as driving or operating machinery. What are the causes? In many cases, the cause of this condition is not known. It may be caused by a disturbance in an area of the inner ear that helps your brain to sense movement and balance. This disturbance can be caused by: ??? Viral infection (labyrinthitis). ??? Head injury. ??? Repetitive motion, such as jumping, dancing, or running. What increases the risk? You are more likely to develop this condition if: ??? You are a woman. ??? You are 50 years of age or older. What are the signs or symptoms? Symptoms of this condition usually happen when you move your head or your eyes in different directions. Symptoms may start suddenly, and usually last for less than a minute. They include: ??? Loss of balance and falling. ??? Feeling like you are spinning or moving. ??? Feeling like your surroundings are spinning or moving. ??? Nausea and vomiting. ??? Blurred vision. ??? Dizziness. ??? Involuntary eye movement (nystagmus). Symptoms can be mild and cause only minor problems, or they can be severe and interfere with daily life. Episodes of benign positional vertigo may return (recur) over time. Symptoms may improve over time. How is this diagnosed? This condition may be diagnosed based on: ??? Your medical history. ??? Physical exam of the head, neck, and ears. ??? Tests, such as: ? MRI. ? CT scan. ? Eye movement tests. Your health care provider may ask you to change positions quickly while he or she watches you for symptoms of benign positional vertigo, such as nystagmus. Eye movement may be tested with a variety of exams that are designed to evaluate or stimulate vertigo. ? An electroencephalogram (EEG). This records electrical activity in your brain. ? Hearing tests. You may be referred to a health care provider who specializes in ear, nose, and throat (ENT) problems (brief writer) or a provider who specializes in disorders of the nervous system (neurologist). How is this treated? This condition may be treated in a session in which your health care provider moves your head in specific positions to adjust your inner ear back to normal. Treatment for this condition may take several sessions. Surgery may be needed in severe cases, but this is rare.? In some cases, benign positional vertigo may resolve on its own in 2?4 weeks. Follow these instructions at home: Safety ??? Move slowly. Avoid sudden body or head movements or certain positions, as told by your health care provider. ??? Avoid driving until your health care provider says it is safe for you to do so. ??? Avoid operating heavy machinery until your health care provider says it is safe for you to do so. ??? Avoid doing any tasks that would be dangerous to you or others if vertigo occurs. ??? If you have trouble walking or keeping your balance, try using a cane for stability. If you feel dizzy or unstable, sit down right away. ??? Return to your normal activities as told by your health care provider. Ask your health care provider what activities are safe for you. General instructions ??? Take lxiw-yea-usafkgy and prescription medicines only as told by your health care provider. ??? Drink enough fluid to keep your urine pale yellow. ??? Keep all follow-up visits as told by your health care provider. This is important. Contact a health care provider if: ??? You have a fever. ??? Your condition gets worse or you develop new symptoms. ??? Your family or friends notice any behavioral changes. ??? You have nausea or vomiting that gets worse. ??? You have numbness or a pins and needles sensation. Get help right away if you: ??? Have difficulty speaking or moving. ??? Are always dizzy. ??? Faint. ??? Develop severe headaches. ??? Have weakness in your legs or arms. ??? Have changes in your hearing or vision. ??? Develop a stiff neck. ??? Develop sensitivity to light. Summary ??? Vertigo is the feeling that you or your surroundings are moving when they are not. Benign positional vertigo is the most common form of vertigo. ??? The cause of this condition is not known. It may be caused by a disturbance in an area of the inner ear that helps your brain to sense movement and balance. ??? Symptoms include loss of balance and falling, feeling that you or your surroundings are moving, nausea and vomiting, and blurred vision. ??? This condition can be diagnosed based on symptoms, physical exam, and other tests, such as MRI, CT scan, eye movement tests, and hearing tests. ??? Follow safety instructions as told by your health care provider. You will also be told when to contact your health care provider in case of problems. This information is not intended to replace advice given to you by your health care provider. Make sure you discuss any questions you have with your health care provider. Document Revised: 09/05/2018 Document Reviewed: 09/05/2018 [employer] Patient Education ? 2020 [employer] STROKE is an EMERGENCY Every Minute Counts Act FAST and Check for these signs: FACE Does the face look uneven? ARM Does one arm drift down? SPEECH Does their speech sound strange? TIME Call at any sign of stroke Stroke Risk Factors Atrial Fibrillation (irregular heartbeat) Diabetes Family history of stroke Heart Disease Heavy alcohol use High Blood Pressure High Cholesterol Physical inactivity and obesity Smoking Don't Wait! Stop a Heart Attack Before it Starts What is a heart attack? A heart attack is damage or to a part of the heart from severely decreased or lack of blood flow to the heart. Over time, arteries can become narrow from the buildup of fat and cholesterol, which is called plaque. The plaque can rupture causing a blood clot to form. When the blood clot forms, the artery can become severely narrowed or completely blocked, causing a heart attack. ?? Heart attack is the leading cause of in the [place]. ?? 85% of muscle damage occurs within the first 2 hours. ?? Delay in the recognition of heart attack symptoms increases the chances of . Know the early symptoms of a heart attack: Nausea Feeling of fullness in chest Fatigue/being tired Anxiety Shortness of breath Sweating, or a cold sweat Feeling of impending doom Jaw Pain Pain that travels down one or both arms Back Pain Chest pressure, squeezing, or discomfort There are unusual signs of a heart attack, too! Women, the elderly, and diabetics may present with atypical symptoms: ?? Fainting/dizziness ?? Weakness ?? Confusion Risk Factors for a Heart Attack Some heart disease risk factors, such as age and family history, cannot be changed. Others, like smoking and lack of exercise, can be changed. Smoking High Cholesterol High Blood Pressure Family History Obesity Age Gender (Males are at higher risk) Lack of Exercise Diabetes Diet Stress Excessive Alcohol Intake If you or someone you know is experiencing the signs and symptoms of a heart attack, DON'T DELAY. Call immediately and seek help. If someone collapses, perform CPR! Do not attempt to drive if you are having symptoms of heart attack. Hands-Only CPR Why Hands-Only CPR? ?? Hands-Only CPR has been shown to be as effective as conventional CPR for cardiac arrests that occur outside of a hospital. ?? Survival depends on immediately receiving CPR from someone nearby. How do you perform Hands-Only CPR? There are two easy steps: 1. Call if you see a teen or adult collapse 2. Push hard and fast in the center of the chest at a beat of 100 beats per minute. Save a life! FOLLOW UP CARE Most conditions that require emergency care requ bridgett follow up. Thiscan be with ?? Your own doctor ?? The doctor listed on this form. You will need to call for an appointment. Tell the doctor or clinic that we referred you. ?? If you do not have a regular p hysician, please choose one from the list given to you upon discharge from the Emergency Department. PRESCRIPTIONS ?? Fill all the prescriptions. Take them as directed. ?? If you have been given an antibiotic, be sure to take the medication for as many days and times a day listed on the instructions. ?? STOP your medicine and call the Emergency Department if you have drug allergy symptoms, if you are vomiting and cannot keep the medicine down. Call the pharmacist if you have other side effects, ?? Pain medication can make you drowsy. Do not drive or operate machinery for at least 6 hours after ann ving the Emergency Department. ?? We DO NOT provide telephone refill for any prescriptions. TESTS PERFORMED TODAY ? X-ray results are preliminary and will be read over the next day by a Radiologist. If the Doctors find any discrepancy between the preliminary reading and the finalreading we will notify you. 1 If we advise you to take your x-rays to your follow up physician, please call the x-ray department to pick them up ? [facility] # [phone] ? [facility] # [phone] 1 [facility] # [phone] ? If you had cultures done and the results require a change in your treatment, we will notify you. Culture results are usually final in 2 days after your visit. IF YOU SMOKE ? Cigarette smoking threatens your health and the health of non-smok ers. Smoking is the most preventable cause of illness and in the [place]. 1 Smoking is a hard habit to quit, but you can do it. Call any of these numbers for aresource to help you quit. ? National Network of Tobacco Cessation CCxkvjuih6-972-XRLJ-NOW 1 [employer] 2 [employer] 6-454054-6017 3 Viktor/Taqueria Jensen [phone] FINANCIAL INFORMATION ?? [facility] provides financial counseling to anyone who requests our services. ?? Emergency Physicians are independently contracted to provide your care. You will receive a bill for the care provided to you by the Physician and/or the Physician Dimension Stone Quarry Supervisor. This will be a separat e bill from your hospital bill. ?? Radiologists are independently contracted. You will receive a bill for any radiology service you receive. This will be a separate bill from your hospital bill. YOU ARE THE MOST IMPORTANT FACTOR IN YOUR RECOVERY. Follow these instructions ca refully. Take your medicine as prescribed. Most importantly, follow up with a doctor. If you have problems that we have not discussed, call or visit your doctor right away. If you cannot reach your doctor, zach workman to the Emergency Department. Patient Visit Summary Hayley Hanley has been given the following list of patient education materials, prescriptions and follow-up instructions: Patient Education Materials : ENT Benign Positional Vertigo Follow-Up Instructions: Follow Up With: Where: When: Follow up with primary care provider Within As needed Comments: Meclizine 25 mg 1 3 x a day for the dizziness Zofran 4 mg ODT 1 to the mouthand let disolve q 6 hours prn N&V Return to the ED as needed I, Hayley Hanley, have received a copy of these discharge instructions and acknowledge understanding of these instructions. . I understand that my condition may require more care and will arrange for further treatment as recommended Patient Signature / or Patient Fashion Consultant Provider Signature Date documented in this encounter Plan of Treatment Not on file documented as of this encounter Visit Diagnoses Not on filedocumented in this encounter
--- OUTSIDE RECORDS SUMMARY | 2024-09-23 09:45 | XMS_ITS | Encounter Summary ---
Author Organization [employer] Address [address] [place] [address] Care Team Providers Care Cylinder Press Operator Name Role Phone Unavailable Primary Care Provider Unavailabl e Encounter Details Date Type Department Care Team (Late st Contact Info) Description 10/13/2020 Transcribed Document [facility] [place] Medicine [address] [place] [address] ProviderDaniela MD [address], [place] [id number] Social History Tobacco Use Types Packs/Day Years Used Date Smoking Tobacco: Never Assessed Comments Unknown Sex and Gender Information Value Date Recorded Sex Assigned at Not on file Legal Sex Female 10:09 AM CDT Gender Identity Not on file Sexual Orientation Not on file documented as of this encounter Miscellaneous Notes * Cerner Conversion Note - Daniela Lira MD - 10/13/2020 3:38 AM CDT [facility] ADDRESS [place], [place] [phone] Name:Hayley Hanley Visit Date:10/12/2020 20:44:00 Emergency Department Care Providers: Physician: LEXUS BELTRAN MD Physician: Our doctors and staff appreciate your choice of [facility] for your emergency medical care. Read these instructions carefully. Please call us if you have any questions about your medical problem. [facility] Emergency Department [phone] [facility] Emergency Department [phone] [facility] Emergency Department [phone] Patient Education Materials Hayley Hanley Crow has [...] in ear, nose, and throat (ENT) problems (abe teacher) or a provider who specializes in disorders [...] safe for you. General instructions ??? Take cbzt-omj-czkpusv and prescription medicines only as told by [...] provider. Document Revised: 09/05/2018 Document Reviewed: 09/05/2018 [employer] Patient Education ? 2020 [employer] STROKE is an EMERGENCY Every Minute [...] x-ray department to pick them up ? [facility] # [phone] ? [facility] # [phone] 1 [facility] # [phone] ? If you had cultures done and [...] quit. ? National Network of Tobacco Cessation OAxrckdrt4-528-BTXC-NOW 1 [place] [employer] 2 [place] [employer] 7-505890-5724 3 Viktor/Taqueria Jensen [phone] FINANCIAL INFORMATION ?? [facility] provides financial counseling to anyone who requests our services. ?? Emergency Physicians are independently contracted to provide your care. You will receive a bill for the care provided to you by the Physician and/or the Physician Furnace Attendant. This will be a separat e bill [...] N&V Return to the ED as needed IDayan Connie Crow, have received a copy of these discharge instructions and acknowledge understanding of these instructions. . I understand that my condition may require more care and will arrange for further treatment as recommended Patient Signature / or Patient Looper Fixer Provider Signature Date Date/Time 10/12/2020 23:38 [facility] Home Medications Name Hayley Hanley Allergy Info: Benadryl; penicillin; erythromycin Allergy Comment: HOME MEDICATIONS Medication Dose Route Frequency Reason For Taking Next Dose CouMADIN CouMADIN 10 mg oral tablet Januvia 100 mg oral tablet metFORMIN 1000 mg oral tablet TopROL-XL Home Medications Comment: YOU SHOULD NO LONGER TAKE THESE MEDICATIONS Medication Dose Frequency Comment: This med list is based on information you provided. Please take this form with you to check with your doctor(s) the appropriateness and dosages of all your medications. IDayan Connie Crow, have received a copy of discharge home medications and acknowledged understanding of these instructions. I hereby certify that I have received the above instructions and that all of my concerns/questions regarding this visit have been adequately answered. Patient Signature Date Witnessed and/or instructed by (signature) Date documented in this encounter Plan of Treatment Not on file documented as of this encounter Visit Diagnoses Not on filedocumented in this encounter
--- OUTSIDE RECORDS SUMMARY | 2024-09-23 09:45 | XMS_ITS | Data Portability ---
Author Organization MATTHEW - MICKY Machado [facility] Address [address] [facility] [address] [address] [place] [address] Care Team Providers Care Grinding Room Inspector Name Role Phone YONATAN REYES Primary Care Provider Assessment No assessment recorded. Plan of Treatment Reminders Order Date Submit Date Provider Last Modified By Organization Details Last Modified Time Details Appointments None recorded. Lab None recorded. Referral None recorded. Procedures None recorded. Surgeries None recorded. Imaging None recorded. Medication Orders ipratropium bromide 42 mcg (0.06 %) nasal spray 2021 [facility], [address] [place] [address], [address], 12:04:00 pantoprazol e 20 mg tablet,riri yed release 2021 [facility], [address] [place] [address], [address], 12:13:59 Xyzal 5 mg tablet 2021 [email or web address] [facility], [address] [place] [address], [address], 17:02:15 Patient TargetsNo targets recorded. Patient Instructions Encounter Date Encounter Id Patient Instructions Last Modified By Organization Details Last Modified Time 11/01/2019 [id number] sore throat: car e instructions [email or web address] Not available 11/01/2019 09:18:22 1. Laryngoscope full risks, complications, and benefits of in-office procedure have been thoroughly discussed. Understanding was expressed, informed consent given, and we will proceed with the discussed in-office treatment plan. 2. f/u as needed for any new or worsening symptoms [email or web address] Not available 11/01/2019 09:16:27 02/22/2022 [id number] 1. Left CRP with Filiberto. 2. Use saline nasal spray for congestion. 3. F/u prn. [email or web address] Not available 02/22/2022 11:15:37 02/25/2022 [id number] 1. RTO OVIDIO if positional vertigo returns 2. Standard GERD and voice hygiene precautions reviewed 3. Increase daily water intake. Gargle warm dilute salter water TID 4. Rx - Pantoprazole 20mg PO QD 5. Tums, 1 tablet qhs 6. NS spray, 2 sprays to each nostril BID 7. Rx - Xyzal 5mg PO QPM 8. F/U in 6 months with flexible laryngoscopy BILL LEVEL III MATTHEW ENT MD Jewel Kennedy [facility] Not available 02/25/2022 12:16:36 04/06/2022 [id number] 1. Flexible laryngoscopy performed - clinical photos obtained 2. Standard GERD and voice hygiene precautions reviewed. Avoid voice strain. 3. Increase daily water intake 4. Continue Omeprazole QD 5. NS spray, 2 sprays to each nostril BID 6. Rx - Ipratropium Machipongo 0.06% spray, 2 sprays each nostril BID 7. Continue Xyzal QPM 8. F/U in [address] Ricks with repeat laryngoscopy for continued management of chronic hoarseness and possible vocal cord lesions/nodules. Patient may benefit from speech therapy evaluation if hoarseness persist. MATTHEW ENT MD Jewel Ricks [facility] Not available 04/06/2022 12:06:57 06/03/2022 [id number] 1. Laryngoscopy performed ; clinical photos obtained. She does have possible polypoid changes of the right cord long with mucous stranding and some dehydrated changes. 2. Recommend speech therapy for hoarseness ; continue wit vocal hygiene precautions 3. Recommend Mucinex for thick PND- Increase water intake 4. Continue with good oral hygiene 5. F/u per speech therapy recommendations, or prn [email or web address] Not available 06/03/2022 17:05:38 Reason for Referral None Reported. Problems No Known Problems Procedures Surgical History Date Name Laterality Status Provider Name and Address Organization Details Recorded Time 023 Laryngoscopy Flex completed Svitlana Georgeon [facility] 06/03/2022 15:35:14 022 Laryngoscopy Flex completed KATY COBURN, [employer] VICE PRESIDENT [address] [place], [address], [facility] 04/06/2022 12:01:06 020 Laryngoscopy Flex completed Sandy Hilda [facility] 11/01/2019 09:10:32 018 Audiogram completed PRICE COPELAND, AUD [address] [place], [address], [facility] 09/26/2017 11:16:02 018 Audiogram completed Yonatan Brady [facility] 09/26/2017 11:37:38 018 Laryngoscopy Flex completed Yonatan Brady [facility] 09/26/2017 11:40:18 018 Audiogram completed NATHAN PELLETIER, AUD [address] [place], [address], [facility] 08/15/2017 10:00:39 018 Labyrinthotomy completed Karen Hernandez [facility] 08/15/2017 10:47:23 018 Labyrinthotomy completed Yonatan Brady [facility] 06/27/2017 13:19:31 018 Audiogram completed PINEDA DSOUZA, AUD [address] [place], [address], [facility] 05/02/2017 15:44:20 018 Labyrinthotomy completed ABRAN KENNEDY MD [address] [place], [address], [facility] 05/02/2017 17:56:29 018 Audiogram completed Yonatan Brady [facility] 05/02/2017 16:30:55 017 Tympanogram completed RACHID JULIAN, AUD [address] [place], [address], [facility] 03/14/2017 10:49:20 017 Audiogram completed RACHID JULIAN, AUD [address] [place], [address], [facility] 03/14/2017 10:49:18 017 Labyrinthotomy completed Yonatan Cidson [facility] 03/14/2017 11:54:38 017 Audiogram completed Yonatan Brady [facility] 03/14/2017 11:46:24 017 Tympanometry completed Yonatan Cidson [facility] 03/14/2017 11:46:16 017 Labyrinthotomy completed Yonatan iCdson [facility] 02/21/2017 11:18:41 017 Ears/Nose/Throat Surgery completed Yonatan Cidson [facility] 02/21/2017 10:50:55 017 Tympanogram completed PINEDA DSOUZA, AUD [address] [place], [address], [facility] 02/20/2017 16:51:54 017 Audiogram completed PINEDA DSOUZA AUD [address] [place], [address], [facility] 02/20/2017 16:51:52 017 Audiogram completed Yonatan Cidson [facility] 02/14/2017 10:32:44 017 Tympanometry completed Yonatan Cidson [facility] 02/14/2017 10:32:31 Appendectomy completed Yonatan Cidson [facility] 02/13/2017 14:09:26 Cholecystectomy completed Yonatan Cidson [facility] 02/13/2017 14:09:30 Imaging Results None recorded. Procedure Notes None recorded. Medical Equipment None Reported. Allergies Allergen ID Allergen Name Allergen Category Reaction Reaction Severity Criticality Documentation Date Start Date Code Code System Note Provider Name and Address Organization Details Recorded Time 347743 E-Mycin medicatio n rash Not available Not available 03/03/2016200660 8 RxNorm Yonatan bello [facility] 7 14:02:14 419658 Product containin g penicilli n (product) medicatio n itching Not available Not available 03/03/20162006 36621 8001 SNOMED Yonatan bello [facility] 7 14:02:18 254462 Livalo medicatio n respirato ry distress Not available Not available 03/03/20162011 46652 2 RxNorm Yonatan bello [facility] 7 14:02:16 984643 Benadryl medicatio n other Not available Not available 02/13/2017 75459 7 RxNorm makes BP wm bruno when she got via IV. Yonatan bello [facility] 7 14:02:45 Medications Name Sig Start Date Stop Date Status Note LastModified by Organization Details LastModified Time losartan 50 mg tablet 02/22 completed Not Available Not Available Not Available promethaz ine-DM 6.25 mg-15 mg/5 mL oral syrup TAKE 5 ML BY MOUTH THREE TIMES DAILY NEEDED FOR COUGH FOR 10 DAYS active Not Available Not Available No t Available prednison e 10 mg tablet Daily 10/31 completed Frequenc y: daily;Me dication Descript ion: predniso ne; Dosage:4 ; Route:or al; refills: 0 Not Available Not Available Not Available ipratropi um 0.5 mg-albute rol 3 mg (2.5 mg base)/3 mL nebulizat ion soln active Not Available Not Available Not Available citalopra m 40 mg tablet active Not Available Not Available Not Available azithromy valery 250 mg tablet 06/03 completed Not Available Not Available Not Available metoprolo l succinate ER 50 mg tablet,ex tended release 24 hr active Not Available Not Available Not Available Maxidex 0.1 % eye drops,oneil pension 5 drops in the left ear bid x 14 days 02/25 completed Not Available Not Available Not Available warfarin 4 mg tablet 06/03 completed Not Available Not Available Not Available pantopraz ole 20 mg tablet,de layed release 1 tablet every morning active Not Available Not Available No t Available citalopra m 20 mg tablet Daily 10/31 completed Not Available Not Available Not Available OneTouch Ultra Test strips TEST THREE TIMES DAILY AND NEEDED active Not Available Not Available No t Available meclizine 25 mg tablet active Not Available Not Available Not Available doxycycli ne monohydra te 100 mg capsule TAKE 1 CAPSULE BY MOUTH TWICE DAILY FOR 7 DAYS 06/03 completed Not Available Not Available Not Available flunisoli de 25 mcg (0.025 %) nasal spray active Not Available Not Available Not Available acyclovir 5 % topical ointment USE DIRECTED active Not Available Not Available No t Available metformin 1,000 mg tablet active Not Available Not Available Not Available nystatin 100,000 unit/gram topical cream 10/31 completed Not Available Not Available Not Available lansopraz ole 30 mg capsule,d elayed release Daily active Not Available Not Available Not Available warfarin 2 mg tablet Daily active Not Available Not Available Not Available monteluka st 10 mg tablet active Not Available Not Available Not Available Valtrex 500 mg tablet Take 1 tablet twice a day by oral route for 14 days. 02/22 completed Not Available Not Available Not Available lisinopri l 5 mg tablet Bedtime 10/31 completed Duration : 30 days;Charanjit quency: hs;Medic ation Descript ion: lisinopr il; Dosage:1 ; Route:or al; refills: 5; Quantity :30 tablet Not Available Not Available Not Available Lipoflavo noid tablet 02/22 completed Duration : 10 days;Med ication Descript ion: multivit monroe; Route:or al; refills: 0; Quantity :30 capsule Not Available Not Available Not Available Imitrex 100 mg tablet Two times a day 10/31 completed Duration : 30 days;Ins truction s: 1-2 tablets by mouth at the onset of a headache . Do not exceed more than 2 tabs in a 24 hour period.; Frequenc y: bid;Alt Frequenc y: as direct.; Medicati on Descript ion: sumatrip duomnt; Dosage:1 -2; Route:or al; refills: 3; Quantity :9 tablet Not Available Not Available Not Available albuterol sulfate HFA 90 mcg/actua tion aerosol inhaler Every six hours active Not Available Not Available No t Available ipratropi um bromide 42 mcg (0.06 %) nasal spray active Not Available Not Available Not Available losartan 100 mg tablet active Not Available Not Available Not Available Fioricet 50 mg-325 mg-40 mg tablet 02/22 completed Medicati on Descript ion: acetamin ophen/bu talbital /caffein e; Route:or al; refills: 0 Not Available Not Available Not Available fluticaso ne propionat e 50 mcg/actua tion nasal spray,oneil pension 06/03 completed Not Available Not Available Not Available Ambien 5 mg tablet Every night at bedtime 10/31 completed Duration : 30 days;Charanjit quency: qhs;Medi cation Descript ion: zolpidem ; Dosage:1 ; Route:or al; refills: 1; Quantity :30 tablet Not Available Not Available Not Available diazepam 5 mg tablet active Not Available Not Available Not Available bupropion HCl XL 150 mg 24 hr tablet, extended release 02/22 completed Not Available Not Available Not Available [facility] 100,000 unit/gram topical powder active Not Available Not Available Not Available flunisoli de 02/25 completed Medicati on Descript ion: flunisol arnol nasal; Route:na padilla; refills: 0 Not Available Not Available Not Available simvastat in 10/31 completed Medicati on Descript ion: simvasta tin; Route:or al; refills: 0 Not Available Not Available Not Available monteluka st 10/31 completed Medicati on Descript ion: monteluk ast; Route:or al; refills: 0 Not Available Not Available Not Available metformin 10/31 completed Medicati on Descript ion: metformi n; Route:or al; refills: 0 Not Available Not Available Not Available glipizide -metformi n active Medicati on Descript ion: glipiZID E-metfor min; Route:or al; refills: 0 Not Available Not Available Not Available BD Ultra-Fin e Original Pen Needle 29 gauge x 1/2 02/22 completed Not Available Not Available Not Available Symbicort 160 mcg-4.5 mcg/actua tion HFA aerosol inhaler 02/22 completed Not Available Not Available Not Available Lantus Solostar U-100 Insulin 100 unit/mL (3 mL) subcutane ous pen active Not Available Not Available Not Available levocetir izine 5 mg tablet TAKE 1 TABLET EVERY EVENING active Not Available Not Available No t Available Humalog Mix 75-25 KwikPen U-100 insulin 100 unit/mL subcutane ous pen 02/22 completed Not Available Not Available Not Available Humalog KwikPen (U-100) Insulin 100 unit/mL subcutane ous active Not Available Not Available Not Available Livalo 1 mg tablet 02/22 completed Not Available Not Available Not Available Bydureon 2 mg subcutane ous extended release suspensio n 10/31 completed Medicati on Descript ion: exenatid e; Route:storey bcutaneo us; refills: 0 Not Available Not Available Not Available Breo Ellipta 200 mcg-25 mcg/dose powder for inhalatio n 02/22 completed Not Available Not Available Not Available BD Trupti 2nd Gen Pen Needle 32 gauge x 5/32 active Not Available Not Available Not Available Breztri Aerospher e 160 mcg-9mcg- 4.8mcg/ac tuation HFA aerosol inhaler active Not Available Not Available Not Available Trelegy Ellipta 200 mcg-62.5 mcg-25 mcg powder for inhalatio n 02/22 completed Not Available Not Available Not Available Vitals Date Recorded Body height Body mass index (BMI) Body weight Body temperature Heart rate Oxygen saturation Oxygen saturation in Arterial blood by Pulse oximetry Systolic blood pressure Diastolic blood pressure Provider Name and Address Organization Details Last Updated DateTime 3 167.64 cm 35.5 kg/m2 16442.3 2 g 97.3 [degF] 75 /min 98 % 98 % 140 mm[Hg] 78 mm[Hg] Gela Gracia [facility] 3 15:15:05 Date Recorded Body height Body mass index (BMI) Body weight Body temperature Heart rate Systolic blood pressure Diastolic blood pressure Provider Name and Address Organization Details Last Updated DateTime 0 167.64 cm 34.6 kg/m2 45817.4 7 g 97.2 [degF] 80 /min 137 mm[Hg] 69 mm[Hg] Johnson Regla [facility] 0 08:15:21 Date Recorded Body weight Body mass index (BMI) Body height Oxygen saturation Oxygen saturation in Arterial blood by Pulse oximetry Heart rate Systolic blood pressure Diastolic blood pressure Provider Name and Address Organization Details Last Updated DateTime 2 062206. 69 g 36.2 kg/m2 167.64 cm 97 % 97 % 76 /min 143 mm[Hg] 81 mm[Hg] Maddy Hull [facility] 2 09:51:06 Date Recorded Body height Body mass index (BMI) Body weight Oxygen saturation Oxygen saturation in Arterial blood by Pulse oximetry Heart rate Systolic blood pressure Diastolic blood pressure Provider Name and Address Organization Details Last Updated DateTime 2 167.64 cm 36 kg/m2 909854. 1 g 97 % 97 % 73 /min 155 mm[Hg] 81 mm[Hg] Maddy Hull [facility] 2 09:54:25 Date Recorded Body height Body mass index (BMI) Body weight Body temperature Heart rate Systolic blood pressure Diastolic blood pressure Provider Name and Address Organization Details Last Updated DateTime 2 167.64 cm 35.9 kg/m2 924253. 31 g 97 [degF] 74 /min 145 mm[Hg] 78 mm[Hg] Karen Hernandez [facility] 2 10:21:10 Social History Question Answer Notes LastModified by Organizat ion Details LastModified Time Tobacco Smoking Status [facility] 14:08:12 What Was The Date Of Your Most Recent Tobacco Screening? 09/26/2017 Information n ot available 05/28/2019 Sex: Unknown Functional Status Question Answer Note LastModified by Organization D etails LastModified Time What is your level of alcohol consumption? None ernesto Information not available 02/13/2017 Mental Status None recorded. Family History Relationship Description Onset Age of this Age Resolved Age Notes LastModified by Organization Details LastModified Time Unspecified Relation Complication of anesthesia ernesto Not available 1 04/15/2016 14:02:57 Unspecified Relation Asthma ernesto Not available 09/2016 14:03:01 Unspecified Relation Family history of malignant neoplasm grandm other [email or web address] Not available 02/13/2017 14:03:28 Brother Diabetes mellitus [email or web address] Not available 14:03:19 Sister Diabetes mellitus [email or web address] Not available 14:03:19 Mother Diabetes mellitus and grandm other [email or web address] Not available 02/13/2017 14:03:19 Medical History Condition Response Diabetes Y Anxiety Disorder Y Allergies/Hayfever Y Bleeding Disorder Y Anemia Y Arthritis Y Anesthesia Complications N Hyperlipidemia Y Cancer N Hypertension N Asthma Y Depression Y Gynecological HistoryNo gynecological history recorded. Obstetrics History GPAL:G 0 P 0 0 0 0 Past Encounters Encounter ID Performer Location Encounter Start Date Encounter Closed Date Diagnosis/Indication Diagnosis SNOMED-CT Code Diagnosis ICD10 Code Diagnosis Note [id number] MD MATTHEW RAMIREZ [facility]NT [address] [place] [address] 02/14/2017 09:18:53 02/17/2017 11:52:05 Asymmetrical sensorineural hearing loss 126732677 H90.5 L>R Dysfunctio n of eustachian tube 09770836 H69.93 History of traumatic brain injury 9477000051 9100 Z87.396 [id number] LEX CISNEROS [place] [facility] [address] [place] [address] 02/14/2017 09:47:41 02/20/2017 16:53:26 Tinnitus of left ear 3844733815 106 H93.12 Dysfunctio n of eustachian tube 54512730 H69.93 Dizziness 491825175 R42 [id number] MD MATTHEW RAMIREZ ENT [address] [place] [address] 02/21/2017 09:38:41 02/21/2017 10:49:40 Asymmetrical sensorineural hearing loss 134861518 H90.5 L>R Dysfunctio n of eustachian tube 81671096 H69.93 History of traumatic brain injury 8628380492 9100 Z87.820 Sudden hearing loss 7947 1008 H91.22 Diabetes mellitus 213865 09 E11.9 [id number] MD MATTHEW RAMIREZ [address]NT [address] [place] [address] 03/14/2017 10:21:44 03/14/2017 12:55:42 Sudden hearing loss 49781744 H91.22 Asymmetric al sensorineural hearing loss 270052434 H90.5 L>R Dysfunctio n of eustachian tube 17127842 H69.93 History of traumatic brain injury 2764098254 9100 Z87.820 Diabetes mellitus 430254 09 E11.9 [id number] LEX BEAVERS [place] [facility] [address] 7 03/14/2017 10:32:17 03/14/2017 10:49:45 Sensorineural hearing loss of bilateral ears 448864800 H90.3 [id number] MD MATTHEW RAMIREZ ENT [address] [place] [address] 05/02/2017 13:43:29 05/02/2017 16:37:37 Sudden hearing loss 72684534 H91.22 Asymmetric al sensorineural hearing loss 266578229 H90.5 L>R Dysfunctio n of eustachian tube 56861025 H69.93 History of traumatic brain injury 1850804200 9100 Z87.820 Diabetes mellitus 392370 09 E11.9 Tinnitus of left ear 511 5508737 106 H93.12 [id number] LEX CISNEROS [place] [facility] [address] [place] [address] 05/02/2017 15:36:28 05/02/2017 16:22:06 Sensorineural hearing loss of bilateral ears 786252330 H90.3 [id number] MD MATTHEW RAMIREZ ENT [address] [place] [address] 06/01/2017 09:40:38 06/01/2017 11:36:44 Sudden hearing loss 10907329 H91.22 - Improved Asymmetric al sensorineural hearing loss 601332990 H90.5 - L>R Tinnitus of left ear 358 3186602 106 H93.12 - Improved Dysfunctio n of eustachian tube 17001773 H69.93 History of traumatic brain injury 7818668438 9100 Z87.820 Diabetes mellitus 747505 09 E11.9 [id number] ABRAN KENNEDY MD [place] [facility] [address] [place] [address] 06/27/2017 10:43:50 06/27/2017 14:12:24 Sudden hearing loss 45595149 H91.22 Asymmetric al sensorineural hearing loss 220744379 H90.5 - L>R Tinnitus of left ear 469 5509916 106 H93.12 Dysfunctio n of eustachian tube 95904991 H69.93 History of traumatic brain injury 2742996312 9100 Z87.820 Diabetes mellitus 601538 09 E11.9 [id number] ABRAN KENNEDY MD [facility] [address] [place] [address] 08/15/2017 08:47:42 08/15/2017 10:56:04 Sudden hearing loss 95300926 H91.22 - improving Asymmetric al sensorineural hearing loss 094255426 H90.5 - L>R, improving Tinnitus of left ear 747 2185960 106 H93.12 Dysfunctio n of eustachian tube 86771990 H69.93 History of traumatic brain injury 1207019492 9100 Z87.820 Diabetes mellitus 646141 09 E11.9 [id number] LEX GARZA [place] [facility] [address] [place] [address] 08/15/2017 09:43:32 08/15/2017 14:15:21 Asymmetrical sensorineural hearing loss 061560463 H90.5 [id number] ABRAN KENNEDY MD [facility] [address] [place] [address] 09/26/2017 09:22:44 09/26/2017 11:39:25 Sudden hearing loss 99333971 H91.22 - improving Asymmetric al sensorineural hearing loss 752675951 H90.5 - L>R, improving Tinnitus of left ear 515 2760560 106 H93.12 Dysfunctio n of eustachian tube 20578157 H69.93 History of traumatic brain injury 2934024261 9100 Z87.820 Diabetes mellitus 121569 09 E11.9 Pain in throat 515559144 R07.0 tenderness at the left junction of hyoid and laryngeal cartilage Gastroesop hageal reflux disease without esophagitis 005817477 K21.9 [id number] LEX YANCEY [place] [facility] [address] [place] [address] 09/26/2017 11:03:14 09/26/2017 11:17:59 Sensorineural hearing loss of bilateral ears 056706496 H90.3 [id number] LEX GARZA [facility] [address] [place] [address] 09/26/2017 11:53:31 09/28/2017 08:37:53 [id number] ABRAN KENNEDY MD [place] [address] [place] [address] 11/01/2019 07:51:31 11/01/2019 09:16:58 Pain in throat 808099787 R07.0 tenderness at the left junction of hyoid and laryngeal cartilage likely neuropathi c pain. This is been stable for 3-4 years and examinatio n is unremarkab le [id number] ABRAN KENNEDY MD [facility] [address] [place] [address] 02/22/2022 09:34:44 02/22/2022 14:53:59 Allergic rhinitis 93432447 J30.9 walnut trees, dogs, cats and dust mites Nasal congestion 6815751 0 R09.81 due to beta blockers Benign par oxysmal positional vertigo 503558039 H81.11 Acid reflux 431052383 K2 1.9 Chronic hoarseness 35150 23402 105 R49.0 History of traumatic brain injury 9431367876 9100 Z87.820 [id number] KATY COBURN APRN [place] [facility] [address] [place] [address] 02/25/2022 09:42:53 02/25/2022 15:54:31 Nasal congestion 54653069 R09.81 due to beta blockers Allergic rhinitis 245501 04 J30.9 walnut trees, dogs, cats and dust mites Benign par oxysmal positional vertigo 286813111 H81.11 - hx of Chronic hoarseness 75768 81196 105 R49.0 History of traumatic brain injury 9485095480 9100 Z87.820 Posterior rhinorrhea 758 13505 R09.82 Feeling of lump in throat 388315285 F45.8 Gastroesop hageal reflux disease 317622384 K21.9 - hx of [id number] KATY COBURN APRN [facility] [address] [employer] [place] [address] 04/06/2022 10:09:48 04/06/2022 13:08:18 Allergic rhinitis 69363008 J30.9 walnut trees, dogs, cats and dust mites Nasal congestion 6027498 0 R09.81 due to beta blockers Chronic hoarseness 39438 39582 105 R49.0 - Flexible laryngosco py 04/06/22: TVCs have a slight weakness and reduction and in ab/adducti on. There is overcompen sation of the right false cord and arytenoid with phonation. There are 3 areas of very faint, white oval, barely visible lesions of the cords that are possible early nodular developmen t (2 left, 1 right). 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 There is overcompen sation of the right false cord and arytenoid with phonation. There are 3 areas of very faint, white oval, barely visible lesions of the cords that are possible early nodular developmen t (2 left, 1 right). [id number] MD MATTHEW MICHELE III [facility] [address] [place] [address] 06/03/2022 14:59:59 06/06/2022 07:46:44 Chronic hoarseness [id number] 105 R49.0 - Flexible laryngosco py 04/06/22: TVCs have a slight weakness and reduction and in ab/adducti on. There is overcompen sation of the right false cord and arytenoid with phonation. There are 3 areas of very faint, white oval, barely visible lesions of the cords that are possible early nodular developmen t (2 left, 1 right). 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 Nasal septal spur 286055 009 J34.89 Deviated nasal septum 12 9440102 J34.2 Posterior rhinorrhea [id number] 23364 R09.82 Health Concerns Section Related Observation LastModified by Organization Detai ls LastModified Time None Recorded Concern Status LastModified by Organization Details LastModified Time None Recorded Advance Directives Directive None Recorded Payers Insurance Date Sequence Insurance Name Policy Number Policy [place] Covered Member ID Camp Member ID Guarantor Name 06/06/2022 1 [facility] (MEDICARE REPLACEMENT/A DVANTAGE - PPO) [id number] Dior Hanley [id number] Dior Hanley Notes Date Note Type Note Provider Name and Address Organization Details Recorded Time 11/01/2019 text/html Dior is here t renny for an evaluation of left sided neck pain. She occasionally has difficulty, and her voice gets weak. She has sharp pain when she turns her head, she describes it as feeling like a cocklebur stuck in her neck . She has been feeling light headed at times when she stands up. She does have an irregular heartbeat, she is on a betablocker. 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 She is currently on coumadin therapy. ABRAN KENNEDY MD [address] [place] [address], [phone], [facility] 11/01/2019 12:46:41 02/22/2022 text/html Dior visits us in office today for sinus issues and sore throat. Dior complains of sinus congestion. She denies any pain or drainage from her ears today. She does suffer from vertigo and is taking meclizine for it. She describes the dizziness as light headedness and her balance being off. The light headedness last for about a week or so. If she doesn't take medication for it she feels nauseous. She is on beta blockers for her blood pressure. She does suffer from allergies. Dior notices when she talks a lot it takes a lot of energy for her to get sounds out. She is also getting hoarse frequently. She does take acid reflux medication. ABRAN KENNEDY MD [address] [place] [address], [phone], [facility] 02/22/2022 13:16:13 02/25/2022 text/html Dior lucero declan today for continued management of BPPV and chronic hoarseness. She reports a long history of positional vertigo and has required jami maneuvers in the past but she has not had any vertigo in over a month. She will get brief episodes about every 2 months and the last one was 2 months ago and caused spinning vertigo with rolling left in bed and quick head movements. Ms. Hanley reports frequent hoarseness. She will lose her voice with singing. The more she talks, the easier she can become hoarse. There is intermittent sore throat. She denies dysphagia. She does report symptoms of nasal congestion and post nasal drainage. She has been on Zyrtec as needed for a long time and Singulair daily. She does have a history of stable reflux and has been on Omeprazole for years. She does get occasional pain in her right medial throat. HPI from 02/22/[address] Romeo KennedyDior visits us in office today for sinus issues and sore throat. Dior complains of sinus congestion. She denies any pain or drainage from her ears today. She does suffer from vertigo and is taking meclizine for it. She describes the dizziness as light headedness and her balance being off. The light headedness last for about a week or so. If she doesn't take medication for it she feels nauseous. She is on beta blockers for her blood pressure. She does suffer from allergies. Dior notices when she talks a lot it takes a lot of energy for her to get sounds out. She is also getting hoarse frequently. She does take acid reflux medication. KATY COBURN, PLANT OPERATIONS VICE PRESIDENT [address] [place], [phone], [facility] 02/25/2022 12:16:41 04/06/2022 text/html Dior Hanley r eturns today for follow up of left BPPV, allergic rhinitis, GERD and chronic hoarseness. She has not had any vertigo and her balance stable. Ms. Hanley says she is still having post nasal drainage. She denies sinusitis. She never started the saline spray but is using Xyzal and fluocinolone spray daily. Dior says her hoarseness has improved but just a little. She is still losing her voice after talking awhile and still can't sing. She denies sore throat or reflux. She says the Pantoprazole did not work she went back to the Omeprazole. HPI from 02/25/22Dior Hanley returns today for continued management of BPPV and chronic hoarseness. She reports a long history of positional vertigo and has required jami maneuvers in the past but she has not had any vertigo in over a month. She will get brief episodes about every 2 months and the last one was 2 months ago and caused spinning vertigo with rolling left in bed and quick head movements. Ms. Hanley reports frequent hoarseness. She will lose her voice with singing. The more she talks, the easier she can become hoarse. There is intermittent sore throat. She denies dysphagia. She does report symptoms of nasal congestion and post nasal drainage. She has been on Zyrtec as needed for a long time and Singulair daily. She does have a history of stable reflux and has been on Omeprazole for years. She does get occasional pain in her right medial throat. 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 Filiberto Coburn performed a flexible laryngoscopy on 04/06/22 which showed slight weakness and reduction and in ab/adduction. There was overcompensation of the right false cord and arytenoid with phonation. 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 Her hoarseness has improved since last seen, and she has tried to observe vocal hygiene precautions. Dior complains of halitosis as well. She does have cryptic tonsils and deals with tonsil stones intermittently. HUMERA RICKS III, MD [address] [place], [phone], [facility] 06/03/2022 17:06:00 OBGyn Episode No OBEpisode recorded.
--- OUTSIDE RECORDS SUMMARY | 2024-09-23 09:46 | XMS_ITS | Encounter Summary ---
Author Organization [facility] Address [address] [place] [address] Care Team Providers Care Air Intercept Controller Supervisor Name Role Phone Unavailable Primary Care Provider Unavailabl e Encounter Details Date Type Department Care Team (Late st Contact Info) Description 10/13/2020 Transcribed Document [facility] Family Medicine [address] [place] [address] ProviderDaniela MD [address], [place] [id number] Social History Tobacco Use Types Packs/Day Years [...] Lira MD - 10/13/2020 3:55 AM CDT [facility] ADDRESS [place], [place] [phone] Name:Hayley Hanley Visit Date:10/12/2020 20:44:00 Emergency Department Care Providers: Physician: LEXUS BELTRAN MD Physician: Our doctors and staff appreciate your choice of [facility] for your emergency medical care. Read these instructions carefully. Please call us if you have any questions about your medical problem. [facility] Emergency Department [phone] [facility] Emergency Department [phone] [facility] Emergency Department [phone] Patient Education Materials Hayley Hanley Crow has [...] in ear, nose, and throat (ENT) problems (bobbin sorter) or a provider who specializes in disorders [...] safe for you. General instructions ??? Take ipjx-smk-stabijn and prescription medicines only as told by [...] provider. Document Revised: 09/05/2018 Document Reviewed: 09/05/2018 [employer] Patient Education ? 2020 [employer] STROKE is an EMERGENCY Every Minute [...] x-ray department to pick them up ? [facility] # [phone] ? [facility] # [phone] 1 [facility] # [phone] ? If you had cultures done and [...] quit. ? National Network of Tobacco Cessation YNkssmgmk4-021-AAYW-NOW 1 [employer] [employer] 2 [employer] 2-406378-2407 3 Viktor/Taqueria Jensen [phone] FINANCIAL INFORMATION ?? [facility] provides financial counseling to anyone who requests our services. ?? Emergency Physicians are independently contracted to provide your care. You will receive a bill for the care provided to you by the Physician and/or the Physician Splicer Helper. This will be a separat e bill [...] as recommended Patient Signature / or Patient Javascript Developer Provider Signature Date Date/Time 10/12/2020 23:55 [facility] Home Medications Name Hayley [...] Date Witnessed and/or instructed by (signature) Date Electronically signed by Cassidy Hood Conversion Screen Printing Press Operator Cerner at 07/12/2022 11:38 AM CDT documented in this encounter Plan of Treatment Not on file documented as of this encounter Visit Diagnoses Not on filedocumented in this encounter
--- OUTSIDE RECORDS SUMMARY | 2024-09-23 09:46 | XMS_ITS | Patient Health Record ---
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 Name Role Phone Claritza Sierra Primary Care Provider Radha Wharton Unavailable [phone] Sierra Guy Unavailable [phone] Migration, Provider Unavailable Unavailable Allergies Allergen (clinical drug ingredient) Drug/Non Drug Allergy documented on EMR Reaction Allergy Type Onset Date Status IV BENADRYL (uncoded) elevated b/p Allergy Active KEFLEX (uncoded) itching Allergy Act chelsea fluticasone / umeclidinium / vilanterol Trelegy Ellipta voiding issues Drug Allergy Active insulin glargine Toujeo SoloStar Unknown Drug Allergy Active Substance with 0-vdlslze-1-methylgl utaryl-coenzyme A reductase inhibitor mechanism of action (substance) Statins itching Drug Allergy Active Penicillin rash Drug Allergy Active valacyclovir valACYclovir cough/wheeze Drug Allergy Active Results Component Value Reference Range Notes M-Complete Blood Count Auto Diff Reviewed date:03/25/2024 03:01:30 PM Interpretation: Performing Lab: Notes/Report: WBC 5.0 4.8-10.8 K/mm3 RBC 4.76 4.20-5.40 M/mm3 HGB 12.7 12.2-16.2 g/dL HCT 39.1 37.0-47.0 % MCV 82.0 81-99 fl MCH 26.6 27.0-31.2 pg MCHC 32.4 31.8-35.4 g/dL RDW 15.3 11.5-17.5 % PLT 238 142-424 K/mm3 MPV 8.9 7.4-10.4 fl NE% 63.2 37.0-80.0 % LY% 25.9 10-50 % MO% 6.5 1.7-9.3 % EO% 3.7 0.1-12.0 % BA% 0.6 0.1-2.0 % NE# 3.2 1.8-7.8 K/mm3 LY# 1.3 0.7-4.5 K/mm3 MO# 0.3 0.1-1.0 K/mm3 EO# 0.2 0.0-0.4 K/mm3 BA# 0.0 0-0.2 K/mm3 Mammogram : Bilateral Reviewed date:12/25/2023 06:00:25 PM Interpretation: Performing Lab: Notes/Report: Microalbumin (In-House) Reviewed date:03/21/2024 01:23:40 PM Interpretation:Normal Performing Lab: Notes/Report: Normal ALB 30mg CRE 300mg A:C <30mg/g DEXA Hip and Spine - Screeni ng Reviewed date:12/25/2023 06:03:09 PM Interpretation: Performing Lab: Notes/Report: M-Comprehensive Metabolic Pa hui Reviewed date:03/25/2024 03:01:30 PM Interpretation: Performing Lab: Notes/Report: NA 139 136-145 mmol/L K 5.2 3.5-5.1 mmoL/L CL 105 98-107 mmol/L CO2 27 22.0-30.0 mmol/L GAP 12.2 5-15 mEq/L BUN 18 7-17 mg/dl CREATT 1.00 0.52-1.04 mg/dl GFRAA 67 >60 ML/MIN EGFR 55 >60 ml/min GLU 175 74-100 mg/dl CA 10.1 8.4-10.2 mg/dl BILIT 0.5 0.2-1.3 mg/dl AST 76 14-36 U/L ALT 66 12-78 U/L TP 7.0 6.3-8.2 g/dl ALB 4.2 3.5-5.0 g/dl GLOB 2.8 1.3-3.2 g/dL AGRATIO 1.5 1.1-1.8 ALP 52 38-126 U/L M-Comprehensive Metabolic Pa hui Reviewed date:2023 08:27:38 AM Interpretation: Performing Lab: Notes/Report: NA 140 136-145 mmol/L K 4.7 3.5-5.1 mmoL/L CL 107 98-107 mmol/L CO2 25 22.0-30.0 mmol/L GAP 12.7 5-15 mEq/L BUN 11 7-17 mg/dl CREATT 0.80 0.52-1.04 mg/dl GFRAA 86 >60 ML/MIN EGFR 71 >60 ml/min GLU 167 74-100 mg/dl CA 9.5 8.4-10.2 mg/dl BILIT 0.5 0.2-1.3 mg/dl AST 104 14-36 U/L ALT 73 12-78 U/L TP 7.3 6.3-8.2 g/dl ALB 3.9 3.5-5.0 g/dl GLOB 3.4 1.3-3.2 g/dL AGRATIO 1.1 1.1-1.8 ALP 54 38-126 U/L M-Hemoglobin A1C Reviewed date:2023 08:27:44 AM Interpretation: Performing Lab: Notes/Report: HGBA1C 7.5 4.0-6.0 % < 6% Non-Diabetic Level < 7% Controlled Diabetic Level > 8% Poorly Controlled Diabetic Level M-Hemoglobin A1C Reviewed date:03/25/2024 03:01:31 PM Interpretation: Performing Lab: Notes/Report: HGBA1C 7.4 4.0-6.0 % < 6% Non-Diabetic Level < 7% Controlled Diabetic Level > 8% Poorly Controlled Diabetic Level M-Lipid Panel Reviewed date:2023 08:27:30 AM Interpretation: Performing Lab: Notes/Report: Patient Fasting? Y TRIG 157 30-150 mg/dl CHOL 227 140-200 mg/dl DLDL 141.75 100-129 mg/dL VLDL 31 0-40 mg/dL HDL 41 40-60 mg/dl CHLHDL 5.5 1-3.5 H-TVITD Reviewed date:12/15/2023 05:40:35 PM Interpretation: Performing Lab: Notes/Report: TVITD 84.9 30-100 ng/mL Deficient <20 ng/mL Insufficient 20-30 ng/mL Sufficient 30-100 ng/mL Potential Toxicity >100 ng/mL H-MALBCREA Reviewed date:2023 08:27:22 AM Interpretation: Performing Lab: Notes/Report: Units: mg/g creat Normal: 0 - 29 Moderately Increased: 30 - 300 Severely Increased: >300 UCREAT 136 Not Estab. mg/dL Random urine reference range not established. 24 hour urine samples recommended. MICROALB 76.300 0-16.7 mg/L MALBCREAT 56.1 H-VITB12 Reviewed date:12/15/2023 05:36:45 PM Interpretation: Performing Lab: Notes/Report: VITB12 583 239-931 pg/mL Ultrasound : Liver Reviewed date:12/25/2023 06:12:19 PM Interpretation: Performing Lab: Notes/Report: X ray : Spines, Thoracic Spi ne Reviewed date:05/10/2024 02:16:14 PM Interpretation: Performing Lab: Notes/Report: CT Scan : Sinuses Reviewed date:03/29/2024 01:55:15 PM Interpretation: Performing Lab: Notes/Report: Urinalysis Reviewed date:03/21/2024 01:23:33 PM Interpretation: Performing Lab: Notes/Report: Color/Clarity yellow clear Leuk neg Nitrite neg Urobili 0.2 Protein neg pH 6.0 Blood neg Sp. Gr. 1.015 Ketone neg Bili neg Glucose neg X ray : Spines, Lumbosacral Reviewed date:05/06/2024 03:25:25 PM Interpretation: Performing Lab: Notes/Report: M-Complete Blood Count Auto Diff Reviewed date:2023 08:27:51 AM Interpretation: Performing Lab: Notes/Report: WBC 4.9 4.8-10.8 K/mm3 RBC 4.40 4.20-5.40 M/mm3 HGB 11.6 12.2-16.2 g/dL HCT 37.8 37.0-47.0 % MCV 85.7 81-99 fl MCH 26.4 27.0-31.2 pg MCHC 30.8 31.8-35.4 g/dL RDW 15.3 11.5-17.5 % PLT 258 142-424 K/mm3 MPV 9.1 7.4-10.4 fl NE% 57.4 37.0-80.0 % LY% 31.3 10-50 % MO% 6.6 1.7-9.3 % EO% 3.7 0.1-12.0 % BA% 1.0 0.1-2.0 % NE# 2.8 1.8-7.8 K/mm3 LY# 1.5 0.7-4.5 K/mm3 MO# 0.3 0.1-1.0 K/mm3 EO# 0.2 0.0-0.4 K/mm3 BA# 0.1 0-0.2 K/mm3 M-PHA INR Fingerstick Reviewed date:11/23/2023 09:59:51 PM Interpretation: Performing Lab: Notes/Report: POCINRFS 2.3 0.9-1.1 IN THE ASSESSMENTS AND ANTICOAGULATION CLINIC SECTION ANTICOAGULATION CLINIC IN PCI/CLINICAL REVIEW INDICATION INR RANGE THERAPY FOR DVT, PE, ATRIAL FIB; 2.0 - 3.0 PROPHYLAXIS FOR VTE THERAPY FOR MECHANICAL HEART 2.5 - 3.5 VALVE; PREVENTION OF SYSTEMIC EMBOLISM SECONDARY TO AMI FOR DETAILED INFORMATION-PLEASE REVIEW PROGRESS NOTE Results sent to: Colby Andrade MD Pharmacist recommendation for Warfarin therapy is: PATIENT INR 2.3 TODAY VIA FINGERSTICK. PATIENT STARTED DOXYCYCLINE 100 MG BID X 7 DAYS ON MONDAY. HAD PATIENT TAKE WARFARIN 6 MG X2 DAYS STARTING MONDAY. RECOMMENED PATIENT TAKE WARFARIN 6 MG ON MON/MON/MON; 8 MG ON MON, THEN RESUME 8 MG DAILY THEREAFTER. M-PHA INR Fingerstick Reviewed date:02/13/2024 03:50:43 PM Interpretation: Performing Lab: Notes/Report: POCINRFS 2.1 0.9-1.1 Results sent to: Colby Andrade MD Pharmacist recommendation for Warfarin therapy is: PATIENT INR 2.1 TODAY VIA FINGERSTICK. RECOMMENDED PATIENT CONTINUE WITH WARFARIN 8 MG DAILY AT THIS TIME. FOR DETAILED INFORMATION-PLEASE REVIEW PROGRESS NOTE IN THE ASSESSMENTS AND ANTICOAGULATION CLINIC SECTION ANTICOAGULATION CLINIC IN PCI/CLINICAL REVIEW INDICATION INR RANGE THERAPY FOR DVT, PE, ATRIAL FIB; 2.0 - 3.0 PROPHYLAXIS FOR VTE THERAPY FOR MECHANICAL HEART 2.5 - 3.5 VALVE; PREVENTION OF SYSTEMIC EMBOLISM SECONDARY TO AMI M-PHA INR Fingerstick Reviewed date:03/13/2024 09:25:58 PM Interpretation: Performing Lab: Notes/Report: POCINRFS 2.2 0.9-1.1 Results sent to: Colby Andrade MD Pharmacist recommendation for Warfarin therapy is: PATIENT INR 2.2 TODAY VIA FINGERSTICK. RECOMMENDED PATIENT CONTINUE WITH WARFARIN 8 MG DAILY. FOR DETAILED INFORMATION-PLEASE REVIEW PROGRESS NOTE IN THE ASSESSMENTS AND ANTICOAGULATION CLINIC SECTION ANTICOAGULATION CLINIC IN PCI/CLINICAL REVIEW INDICATION INR RANGE THERAPY FOR DVT, PE, ATRIAL FIB; 2.0 - 3.0 PROPHYLAXIS FOR VTE THERAPY FOR MECHANICAL HEART 2.5 - 3.5 VALVE; PREVENTION OF SYSTEMIC EMBOLISM SECONDARY TO AMI M-PHA INR Fingerstick Reviewed date:04/26/2024 01:42:43 PM Interpretation: Performing Lab: Notes/Report: POCINRFS 2.4 0.9-1.1 Results sent to: Colby Andrade MD Pharmacist recommendation for Warfarin therapy is: PATIENT INR 2.4 TODAY VIA FINGERSTICK. RECOMMENDED PATIENT CONTINUE WITH WARFARIN 8 MG DAILY. FOR DETAILED INFORMATION-PLEASE REVIEW PROGRESS NOTE IN THE ASSESSMENTS AND ANTICOAGULATION CLINIC SECTION ANTICOAGULATION CLINIC IN PCI/CLINICAL REVIEW INDICATION INR RANGE THERAPY FOR DVT, PE, ATRIAL FIB; 2.0 - 3.0 PROPHYLAXIS FOR VTE THERAPY FOR MECHANICAL HEART 2.5 - 3.5 VALVE; PREVENTION OF SYSTEMIC EMBOLISM SECONDARY TO AMI M-PHA INR Fingerstick Reviewed date:06/06/2024 12:35:57 PM Interpretation: Performing Lab: Notes/Report: POCINRFS 1.9 0.9-1.1 Results sent to: Colby Andrade MD Pharmacist recommendation for Warfarin therapy is: PATIENT INR 1.9 TODAY VIA FINGERSTICK. RECOMMENDED PATIENT CONTINUE WITH WARFARIN 8 MG DAILY AT THIS TIME. WILL ADJUST AT NEXT FOLLOW UP IF INDICATED. PATIENT HAS BEEN THERAPEUTIC AT CURRENT DOSE FOR SEVERAL MONTHS. FOR DETAILED INFORMATION-PLEASE REVIEW PROGRESS NOTE IN THE ASSESSMENTS AND ANTICOAGULATION CLINIC SECTION ANTICOAGULATION CLINIC IN PCI/CLINICAL REVIEW INDICATION INR RANGE THERAPY FOR DVT, PE, ATRIAL FIB; 2.0 - 3.0 PROPHYLAXIS FOR VTE THERAPY FOR MECHANICAL HEART 2.5 - 3.5 VALVE; PREVENTION OF SYSTEMIC EMBOLISM SECONDARY TO AMI M-PHA INR Fingerstick Reviewed date:07/18/2024 10:05:34 AM Interpretation: Performing Lab: Notes/Report: POCINRFS 2.2 0.9-1.1 EMBOLISM SECONDARY TO AMI Results sent to: Colby Andrade MD Pharmacist recommendation for Warfarin therapy is: PATIENT INR 2.2 TODAY VIA FINGERSTICK. RECOMMENDED PATIENT CONTINUE WITH WARFARIN 8 MG DAILY. FOR DETAILED INFORMATION-PLEASE REVIEW PROGRESS NOTE IN THE ASSESSMENTS AND ANTICOAGULATION CLINIC SECTION ANTICOAGULATION CLINIC IN PCI/CLINICAL REVIEW INDICATION INR RANGE THERAPY FOR DVT, PE, ATRIAL FIB; 2.0 - 3.0 PROPHYLAXIS FOR VTE THERAPY FOR MECHANICAL HEART 2.5 - 3.5 VALVE; PREVENTION OF SYSTEMIC M-PHA INR Fingerstick Reviewed date:08/28/2024 05:04:27 PM Interpretation: Performing Lab: Notes/Report: POCINRFS 2.3 0.9-1.1 Results sent to: Colby Andrade MD Pharmacist recommendation for Warfarin therapy is: PATIENT INR 2.3 TODAY VIA FINGERSTICK. RECOMMENDED PATIENT CONTINUE WITH WARFARIN 8 MG DAILY AT THIS TIME. FOR DETAILED INFORMATION-PLEASE REVIEW PROGRESS NOTE IN THE ASSESSMENTS AND ANTICOAGULATION CLINIC SECTION ANTICOAGULATION CLINIC IN PCI/CLINICAL REVIEW INDICATION INR RANGE THERAPY FOR DVT, PE, ATRIAL FIB; 2.0 - 3.0 PROPHYLAXIS FOR VTE THERAPY FOR MECHANICAL HEART 2.5 - 3.5 VALVE; PREVENTION OF SYSTEMIC EMBOLISM SECONDARY TO AMI M-INR/PT Reviewed date:2023 08:27:15 AM Interpretation: Performing Lab: Notes/Report: PT 20.9 10.1-12.5 seconds INR 2.00 0.9-1.1 INDICATION INR RANGE Therapy for DVT, PE, Atrial Fib, 2.0-3.0 Prophylaxis for VTE. Therapy for Mechanical Heart Valve, 2.5-3.5 Prevention of Sytemic Emolism secondary to AMI. M-PHA INR Fingerstick Reviewed date:10/28/2023 11:18:52 AM Interpretation: Performing Lab: Notes/Report: POCINRFS 2.2 0.9-1.1 Results sent to: Colby Andrade MD Pharmacist recommendation for Warfarin therapy is: PATIENT INR 2.2 TODAY VIA FINGERSTICK. RECOMMENDED PATIENT CONTINUE WITH WARFARIN 8 MG DAILY AT THIS TIME. FOR DETAILED INFORMATION-PLEASE REVIEW PROGRESS NOTE IN THE ASSESSMENTS AND ANTICOAGULATION CLINIC SECTION ANTICOAGULATION CLINIC IN PCI/CLINICAL REVIEW INDICATION INR RANGE THERAPY FOR DVT, PE, ATRIAL FIB; 2.0 - 3.0 PROPHYLAXIS FOR VTE THERAPY FOR MECHANICAL HEART 2.5 - 3.5 VALVE; PREVENTION OF SYSTEMIC EMBOLISM SECONDARY TO AMI Medications Medication SIG (Take, Route, Frequency, Duration) Notes Start Date End Date Status Dexcom G7 Sensor 1 SENSOR DIRECTED FOR CONTINUOUS GLUCOSE MONITORING for 90 DAYS *Please review and pick correct strength-formulati on from Storytree options. If intended option is not shown, discontinue and re-order from Quick Search* Active Meclizine HCl 25 MG 1/2 or whole tablet orally at night as needed for vertigo for 90 days Active Doxycycline Hyclate 100 MG 1 capsule Orally twice a day for 7 days 09/23/2024 Active Lansoprazole 30 MG 1 cap(s) orally once a day for 90 days Active Citalopram Hydrobromide 40 MG 1 tab(s) orally once a day for 90 days Active Metoprolol [...] review and pick correct strength-formulati on from Storytree options. If intended option is not shown, [...] 1 tab(s) orally once a day Active ONE TOUCH ULTRA LANCETS NA DX: E11.22 TEST TID & NEEDED for 90 DAYS *Please review for potential replacement for e-prescription and drug interaction check* 01/07/2013 Active ONE TOUCH ULTRA TEST STRIPS BLUE DX: E11.22 TEST TID & NEEDED for 90 DAYS *Please review for potential replacement for e-prescription and drug interaction check* 07/06/2013 Active Dexcom G7 Clinical Leader DIRECTED CONTINUOUS GLUCOSE MONITORING for 30 DAY(S) *Please review and pick correct strength-formulati on from [employer] options. If intended option is not shown, [...] for e-prescription and drug interaction check* Active Warfarin Sodium 2 MG 4 tablets orally once a day for 90 days Active ONE TOUCH MINI GLUCOMETER DIRECTED *Please review for potential replacement for e-prescription and drug interaction check* 03/05/2014 Active PEN NDL KELVIN 32G X 4MM PEN NEEDLES SUBCUTANEOUSLY THREE TIMES A DAY for 90 days Active Xyzal Allergy 24HR 5 MG 1 po qd Active Mounjaro 2.5 MG/0.5ML INJECT 1 SYRINGE SUBCUTANEOUSLY ONCE A WEEK for 84 Active Reclast 5 MG/100ML as directed intravenously once Active metFORMIN HCl 1000 MG 1 tab(s) orally 2 times a day for 90 days Active Immunizations Vaccine Route Administration Date Status Comme nts Adacel (Tdap) Unknown 04/19/2019 Administered Arexvy IM Intramuscular 11/30/2023 Administered Fluvirin--Influenza vaccine 3+ year IM Intramuscular 02/20/2013 Administered Fluvirin--Influenza vaccine 3+ year IM Intramuscular 02/21/2014 Administered FLUZONE 6MO - OLDER IM Intramuscular 01/15/2019 Administer ed Fluzone High Dose IM Intramuscular 02/04/2020 Administered Fluzone High Dose IM Intramuscular 12/31/2020 Administered Fluzone High Dose IM Intramuscular 01/06/2022 Administered Fluzone High Dose IM Intramuscular 02/09/2023 Administered Fluzone High Dose IM Intramuscular 03/21/2024 Administered Influenza (Fluzone)--Medicare only IM Intramuscular 01/20/2017 Administered Influenza-Fluzone 3+years (NON-MEDICARE) IM Intramuscular 02/23/2015 Administered Influenza-Fluzone 3+years (NON-MEDICARE) IM Intramuscular 01/14/2016 Administered Influenza-Fluzone 3+years (NON-MEDICARE) IM Intramuscular 02/05/2018 Administered Pneumovax 23 IM Intramuscular 12/31/2020 Administered Prevnar PCV-13 (Pneumococcal conjugate 13) IM Intramuscular 12/26/2019 Administered Problems Problem Type SNOMED Code ICD Code Onset Dates Problem Status W/U Status Risk Notes Problem 18408965 Type 2 diabetes mellitus with diabetic chronic kidney disease (E11.22) Active confirmed Problem 13182056 Type 2 diabetes mellitus with hyperglycemia (E11.65) Active confirmed Problem 41522474 Other chronic pa in (G89.29) Active confirmed Problem 11629380 Chronic rhinitis (J31.0) Active confirmed Problem 367015291 Chronic kidney disease, stage 2 (mild) (N18.2) Active confirmed Problem Screening for malignant neoplasm of breast (895193438) Encounter for screening mammogram for malignant neoplasm of breast (Z12.31) Active confirmed Problem 049980637 Depression with anxiety (F41.8) Active confirmed Problem 01088601 Vitamin D deficiency (E55.9) Active confirmed Problem 99273239 Essential hypertension (I10) Active confirmed Problem 551788416 B12 deficiency (E53.8) Active confirmed Problem 94627514 Restless leg syndrome (G25.81) Active confirmed Problem 40864396 Chronic allergic rhinitis (J30.9) Active confirmed Problem 254643574 alf (curre nt) use of insulin (Z79.4) Active confirmed Problem 62130354 Other chronic pa in (G89.29) Active confirmed Problem 338662954 BMI 38.0-38.9,ad ult (Z68.38) Active confirmed Problem 908049962 Gastroesophageal reflux disease without esophagitis (K21.9) Active confirmed Problem Postmenopausal state (73691815) Post menopausal syndrome (Z78.0) Active confirmed Problem 694035023 BMI 37.0-37.9, adult (Z68.37) Active confirmed Problem 021719213 BMI 36.0-36.9,ad ult (Z68.36) Active confirmed Problem Arthritis of hip (59161258) Hip arthritis (M19.90) Active confirmed Problem 63731218 Situational anxi ety (F41.8) Active confirmed Problem 77921389 Venous (peripher al) insufficiency (I87.2) Active confirmed Problem 35879761 Depression, reactive (F32.9) Active confirmed Problem 518474289 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) Active confirmed Problem 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) PVC (premature ventricular contraction) (I49.3) Active confirmed Problem 642203639 Asthma, moderate persistent (J45.40) Active confirmed Problem 205389219 Recurrent deep v ein thrombosis (DVT) of both lower extremities (I82.403) Active confirmed Problem Spondylosis without myelopathy (51590287) Arthritis of back (M47.9) Active confirmed Problem 81628350 MARYAM on CPAP (G47.33) Active confirmed Problem 671235272 Postmenopausal osteoporosis (M81.0) Active confirmed Problem 721561938 Mixed dyslipidem ia (E78.2) Active confirmed Problem 88663923 Current moderate episode of major depressive disorder without prior episode (F32.1) Active confirmed Problem 540899975 History of iron deficiency (Z86.39) Active confirmed Problem 85180153 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 Blood pressure diastolic 60 mm Hg 09/23/2024 Height 64 in 09/23/2024 Blood pressure systolic 116 mm Hg 09/23/2024 Weight 203 lbs 09/23/2024 BMI 34.84 kg/m2 09/23/2024 Encounters Encounter Location Date Provider Diagnosis [facility] [address] [facility] [address] [place] [address] 07/13/2024 Provider Migration Type 2 diabetes mellitus with diabetic chronic kidney disease E11.22 [facility] [address] [place] [address] 09/23/2024 Sierra Jerry Type 2 diabetes mellitus with diabetic chronic kidney disease E11.22 ; Recurrent deep vein thrombosis (DVT) of both lower extremities I82.403 ; Essential hypertension I10 ; History of iron deficiency Z86.39 ; Restless leg syndrome G25.81 ; Vitamin D deficiency E55.9 ; B12 deficiency E53.8 ; Mixed dyslipidemia E78.2 and Acute non-recurrent maxillary sinusitis J01.00 [facility] [address] [place] [address] 11/13/2023 Sierra Jerry Acute URI J06.9 [facility] [address] [place] [address] 11/30/2023 Sierra Jerry Chronic kidney disease, stage 2 (mild) N18.2 ; Medicare annual wellness visit, subsequent Z00.00 ; Type 2 diabetes mellitus with diabetic chronic kidney disease E11.22 ; Mixed dyslipidemia E78.2 ; Venous (peripheral) insufficiency I87.2 ; Asthma, moderate persistent J45.40 ; Recurrent deep vein thrombosis (DVT) of both lower extremities I82.403 ; Essential hypertension I10 ; B12 deficiency E53.8 ; Vitamin D deficiency E55.9 ; Depression, reactive F32.9 ; Encounter for immunization Z23 ; BMI 37.0-37.9, adult Z68.37 ; Visit for screening mammogram Z12.31 and Postmenopausal osteoporosis M81.0 [facility] [address] [place], [place] [address] 02/08/2024 Sierra Jerry Type 2 diabetes mellitus with diabetic chronic kidney disease E11.22 ; Subacute sinusitis, unspecified location J01.90 and Nasal congestion R09.81 [facility] [address] [place] [address] 03/21/2024 Sierra Jerry Type 2 diabetes mellitus with diabetic chronic kidney disease E11.22 ; Right flank pain R10.9 ; Chronic rhinitis J31.0 ; Immunization(s) administered Z23 ; Recurrent deep vein thrombosis (DVT) of both lower extremities I82.403 and Essential hypertension I10 [facility] [address] [place] [address] 04/05/2024 Sierrayulia GoGuy Acute recurrent frontal sinusitis J01.11 [facility] [address] [place] [address] 05/02/2024 [facility] Low back pain, unspecified M54.50 ; Other chronic pain G89.29 and Type 2 diabetes mellitus with diabetic chronic kidney disease E11.22 [facility] [address] [place] [address] 11/08/2023 [facility] [address] [place] [address] 11/20/2023 [facility] [address] [place] [address] 12/02/2023 [facility] [address] [place] [address] 12/04/2023 [facility] [address] [place] [address] 2023 [facility] Elevated liver enzym es R74.8 [facility] [address] [place] [address] 01/22/2024 [facility] Type 2 diabetes mellitus with hyperglycemia E11.65 [facility] [address] [place] [address] 01/22/2024 [facility] [address] [place] [address] 01/23/2024 [facility] Type 2 diabetes mellitus with hyperglycemia E11.65 [facility] [address] [place] [address] 01/31/2024 Sierra Claritza [facility], [place] [address] 03/11/2024 Sierra Jerry Type 2 diabetes mellitus with diabetic chronic kidney disease E11.22 [facility] [address] [place] [address] 03/25/2024 Sierra Jerry Type 2 diabetes mellitus with diabetic chronic kidney disease E11.22 [facility] [address] [place] [address] 05/02/2024 Sierra Jerry [facility] [address] [place] [address] 05/06/2024 Sierra Jerry Arthritis of back M47.9 [facility] [address] [place] [address] 05/08/2024 Sierra Jerry Mid back pain M54.9 [facility] [address] [place] [address] 05/23/2024 Sierra Jerry Type 2 diabetes mellitus with diabetic chronic kidney disease E11.22 [facility] [address] [place] [address] 06/27/2024 Sierra Jerry [facility] [address] [place] [address] 07/15/2024 Sierra Jerry Assessments Encounter Date Diagnosis (ICD Code) Assessment Notes Treatment Notes Treatment Clinical Notes Section Notes 11/13/2023 Acute URI (ICD-10 - J06.9) Symptoms have improved some since taking Zithromax. No additional antibiotics are indicated at this time. Recommend plain Mucinex twice daily. Return precautions reviewed 11/30/2023 Chronic kidney disease, stage 2 (mild) (ICD-10 - N18.2) 11/30/2023 Medicare annual wellness visit, subsequent (ICD-10 - Z00.00) update screening exams as noted, labs to be done as noted in about 4-6 weeks continue FU with pulmonology and coumadin clinic glucose control improving, CGM has been very helpful since she lives alone and has had some difficulty with hypoglycemia in the past. We reviewed pros/cons of GLP1I. I will talk to pharmacist about this with her warfarin CC diet and exercise as much as tolerated recommended 2023 Elevated liver enzymes (ICD-10 - R74.8) 01/22/2024 Type 2 diabetes mellitus with hyperglycemia (ICD-10 - E11.65) 01/23/2024 Type 2 diabetes mellitus with hyperglycemia (ICD-10 - E11.65) 02/08/2024 Type 2 diabetes mellitus with diabetic chronic kidney disease (ICD-10 - E11.22) 02/08/2024 Subacute sinusitis, unspecified location (ICD-10 - J01.90) she reports some improvement in her nasal congestion over the past 48 hours. Encouraged her to continue with her nasal sprays and nasal saline but if her symptoms progress and sinus pain continues then start doxycycline as noted. She knows to follow-up with Coumadin clinic anytime she takes antibiotics. 03/11/2024 Type 2 diabetes mellitus with diabetic chronic kidney disease (ICD-10 - E11.22) 03/21/2024 Type 2 diabetes mellitus with diabetic chronic kidney disease (ICD-10 - E11.22) labs today as noted, discussed possibly increasing Truliciy to 3mg weekly as tolerated. 05/02/2024 Other chronic pain (ICD-10 - G89.29) 05/02/2024 Low back pain, unspecified (ICD-10 - M54.50) 05/06/2024 Arthritis of back (ICD-10 - M47.9) 05/08/2024 Mid back pain (ICD-10 - M54.9) 05/23/2024 Type 2 diabetes mellitus with diabetic chronic kidney disease (ICD-10 - E11.22) 07/13/2024 Type 2 diabetes mellitus with diabetic chronic kidney disease (ICD-10 - E11.22) 09/23/2024 Type 2 diabetes mellitus with diabetic chronic kidney disease (ICD-10 - E11.22) labs today as noted, discussed possibly increasing Truliciy to 3mg weekly as tolerated. 03/21/2024 Right flank pain (ICD-10 - R10.9) rec massage for muscle soreness, UA neg for blood today, monitor 03/25/2024 Type 2 diabetes mellitus with diabetic chronic kidney disease (ICD-10 - E11.22) 04/05/2024 Acute recurrent frontal sinusitis (ICD-10 - J01.11) Recent CT sinuses noted, no acute findings. Discussed the etiology & expected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
--- OUTSIDE RECORDS SUMMARY | 2024-09-23 09:46 | XMS_ITS | Encounter Summary ---
Author Organization [employer] Address [address] [place] [address] Care Team Providers Care Nuclear Instructor Name Role Phone Unavailable Primary Care Provider Unavailabl e Encounter Details Date Type Department Care Team (Late st Contact Info) Description 06/06/2022 Outside Orders [facility] [address] [facility] [address] [place] [phone] Oliverio Ricks MD [address] [place] [address] [address] [place] [address] Hoarseness (Primary Dx) Social History Tobacco Use Types Packs/Day Years Used Date Smoking Tobacco: Never Assessed Comments Unknown Sex and Gender Information Value Date Recorded Sex Assigned at Not on file Legal Sex Female 10:09 AM CDT Gender Identity Not on file Sexual Orientation Not on file documented as of this encounter Plan of Treatment Not on file documented as of this encounter Visit Diagnoses Diagnosis Hoarseness- Primary Dysphonia documented in this encounter
--- OUTSIDE RECORDS SUMMARY | 2024-09-23 09:46 | XMS_ITS | Encounter Summary ---
Author Organization [employer] Address [address] [place] [address] Care Team Providers Care Photo Checker Name Role Phone Unavailable Primary Care Provider Unavailabl e Encounter Details Date Type Department Care Team (Late st Contact Info) Description 10/13/2020 Transcribed Document [facility] [place] [facility] [place] [address] ProviderDaniela MD [address] [place], [place] [id number] Social History Tobacco Use Types Packs/Day Years Used Date Smoking Tobacco: Never Assessed Comments Unknown Sex and Gender Information Value Date Recorded Sex Assigned at Not on file Legal Sex Female 10:09 AM CDT Gender Identity Not on file Sexual Orientation Not on file documented as of this encounter Miscellaneous Notes * Cerner Conversion Note - Daniela ProviderMD - 10/13/2020 3:55 AM CDT [facility] Emergency Department Depart Summary PERSON INFORMATION Name Dior Hanley Age 64 Years 1955 Sex Female Language PCP Marital Status Phone [phone] Visit Id Visit Reason N and/or V Specialty Enc Type Emergency Med Service Referred by Track Group [facility] Discharge Tracking Id [id number] Checkout 10/12/2020 23:55:12 Checkin 10/12/2020 20:44:00 Acuity 3 - Urgent [facility] Dispo Type Arrival 10/12/2020 20:44:00 Reg Status LOS 000 03:11 Address: ALEJANDRA KENT [address] [place] [id number] [employer] PH[employer]IAN NOTES VITALS INFORMATION Vital Sign Triage Temp 98.8 Temp Route Pulse Rate 88 Respiratory Rate 18 Blood Pressure 177/ 80 LOCATION INFORMATION Arrival Nurse Unit Room Bed 10/12/2020 20:44:00 [facility] ED Waitroom ([facility]) 10/12/2020 20:47:59 [facility] ED 2 10/12/2020 23:55:12 [facility] ED Checkout ([facility]) MEDICAL INFORMATION Allergy Info: Benadryl; penicillin; erythromycin [...]
--- OUTSIDE RECORDS SUMMARY | 2024-09-23 09:46 | XMS_ITS | Referral Summary ---
Author Organization [employer] Address [address] [place] [address] Care Team Providers Care Finished Metal Repairer Name Role Phone Unavailable Primary Care Provider [...] Plan of Treatment Not on file Insurance [facility] MEDICARE ADVANTAGE
--- OUTSIDE RECORDS SUMMARY | 2024-09-23 09:46 | XMS_ITS | Encounter Summary ---
Author Organization [employer] Address [address] [place] [address] Care Team Providers Care Mobile Phlebotomist Name Role Phone Unavailable Primary Care Provider Zachary lau Encounter Details Date Type Department Care Team (Late st Contact Info) Description 10/13/2020 Transcribed Document [facility] [place] [facility] [place] [address] ProviderDaniela MD [address] [place] [id number] Social History Tobacco Use Types Packs/Day Years Used Date Smoking Tobacco: Never Assessed Comments Unknown Sex and Gender Information Value Date Recorded Sex Assigned at Not on file Legal Sex Female 10:09 AM CDT Gender Identity Not on file Sexual Orientation Not on file documented as of this encounter Miscellaneous Notes * Cerner Conversion Note - Daniela ProviderMD - 10/13/2020 12:49 AM CDT [facility] Triage ED Entered On: 10/12/2020 21:00 EDT Performed On: 10/12/2020 20:49 EDT by Suzy Montoya Family Resource Coordinator Assessment Triage Date/Time : 10/12/2020 20:49 EDT Suzy Montoya Rn - 10/12/2020 20:49 EDT DCP GENERIC CODE Tracking Acuity : 3 - Urgent [facility] Tracking Group : KELLY Crittenden Suzy Montoya Rn - 10/12/2020 20:49 EDT ED Visit Reason : N and/or V Accompanied By : Family/Spouse/SO Arrival Mode : Wheelchair Chief Complaint : abdominal pain with nausea , onset earlier today, formed stool passed while in ED, denies abdominal pain, emesis x 1 episode Health History Reviewed : Yes Suzy Montoya Rn - 10/12/2020 20:49 EDT Health History ED Grid Alcohol Use : No Caffeine Use : Yes Substance Abuse : No Tobacco Use : No Asthma/COPD : No Cancer : No CVA/TIA : No Mental Illness : No Dementia : No Diabetes : Yes General Cardiac : No Heart Attack : No Heart Failure : No High Blood Pressure : No Liver Disease : No Renal : No AIDS/HIV : No MRSA : No Tuberculosis : No VRE : No Other Medical History : Yes, dvt's Pathway Planning : No Suzy Montoya Rn - 10/12/2020 20:49 EDT Temp : 98.8 Deg F(Converted to: 37.1 Deg C) Systolic Blood Pressure : 177 mmHg (HI) Diastolic Blood Pressure : 80 mmHg Pulse Rate : 88 bpm Respiratory Rate : 18 Breaths/Min Oxygen Saturation : 96 % Pain Symptoms : No Height/Weight Med Rec : Open Medication Profile, Med Rec : Open Allergy Profile, Med Rec : Open Workman's Compensation : No Tetanus Immunization : Unknown Preferred Communication Mode : Verbal Languages : Macedonian Child/Parent Domestic Concerns : None Threats of Suicide : No Suzy Montoya Rn - 10/12/2020 20:49 EDT Height and Weight Height Source : Stated Height Entry Format : [place] Height, Inches : 65 Inch(Converted to: 5 ft 5 Inch, 165.10 cm) Clinical Height : 165.1 cm Weight Source : Stated Type of Weight Measurement Est : [place] Weight, est lb : 220 lb Estimated Clinical Dosing Weight : 100 kg [place] Body Weight : 57 kg Body Surface Area Estimated : 2.14 m2 Body Mass Index Estimated : 36.69 kg/m2 Suzy Montoya Rn - 10/12/2020 20:49 EDT Medication List ED Medications Reviewed : Unable to verify Source of Information : Patient Suzy Montoya Rn - 10/12/2020 20:49 EDT Medication List (As Of: 10/12/2020 21:00:41 EDT) Home Meds metoprolol : metoprolol ; Status: Documented ; Ordered As Mnemonic: TopROL-XL ; Simple Display Line: 12.5mg daily ; Catalog Code: metoprolol ; Order Dt/Tm: 05/27/2010 14:05:53 EST sitaGLIPtin : sitaGLIPtin ; Status: Documented ; Ordered As Mnemonic: Januvia 100 mg oral tablet ; Simple Display Line: 1 Tab, Oral, Daily, 30 Tab ; Catalog Code: SITagliptin ; Order Dt/Tm: 05/27/2010 14:04:05 EST metFORMIN : metFORMIN ; Status: Documented ; Ordered As Mnemonic: metFORMIN 1000 mg oral tablet ; Simple Display Line: 1 Tab, Oral, BID, 180 Tab ; Catalog Code: metFORMIN ; Order Dt/Tm: 05/27/2010 14:02:19 EST warfarin : warfarin ; Status: Documented ; Ordered As Mnemonic: CouMADIN ; Simple Display Line: 8mg Mon, Tu, Wens, Fri , Sat ; Catalog Code: warfarin ; Order Dt/Tm: 05/27/2010 14:01:35 EST warfarin : warfarin ; Status: Documented ; Ordered As Mnemonic: CouMADIN 10 mg oral tablet ; Simple Display Line: Sun. and ; Catalog Code: warfarin ; Order Dt/Tm: 05/27/2010 14:00:30 EST Allergy Profile (As Of: 10/12/2020 21:00:41 EDT) Allergies (Active) Benadryl Estimated Onset Date: Unspecified ; Reactions: increased bp ; Created By: DRAGAN BELTRAN; Reaction Status: Active ; Category: Drug ; Substance: Benadryl ; Type: Allergy ; Updated By: DRAGAN BELTRAN; Reviewed Date: 10/12/2020 20:59 EDT erythromycin Estimated Onset Date: Unspecified ; Created By: DRAGAN BELTRAN; Reaction Status: Active ; Category: Drug ; Substance: erythromycin ; Type: Allergy ; Updated By: DRAGAN BELTRAN; Reviewed Date: 10/12/2020 20:59 EDT penicillin Estimated Onset Date: Unspecified ; Reactions: itching ; Created By: DRAGAN BELTRAN; Reaction Status: Active ; Category: Drug ; Substance: penicillin ; Type: Allergy ; Updated By: DRAGAN BELTRAN; Reviewed Date: 10/12/2020 20:59 EDT documented in this encounter Plan of Treatment Not on file documented as of this encounter Visit Diagnoses Not on filedocumented in this encounter
[2024-09-23 09:59] LABS: Basophils # 0.1 K/mm3 (0-0.2); Basophils % 0.8 % (0.1-2.0); Eosinophils # 0.8 Kmm3 (0.0-0.4); Eosinophils % 12.5 % (0.1-12.0); Hematocrit 38.8 % (37.0-47.0); Immature Granulocytes # 0.02 10^3uL; Immature Granulocytes % 0.3 %; Lymphocytes # 1.4 K/mm3 (0.7-4.5); Lymphocytes % 21.2 % (10-50); Mean Corpuscular HGB Conc 30.9 g/dL (31.8-35.4); Mean Platelet Volume 10.7 fl (7.4-10.4); Monocytes # 0.6 K/mm3 (0.1-1.0); Monocytes % 8.4 % (1.7-9.3); Neutrophils # 3.8 K/mm3 (1.8-7.8); Neutrophils % 56.8 % (37.0-80.0); Nucleated Red Blood Cells # 0 10^3/uL; Nucleated Red Blood Cells % 0 %; Platelet Count 267 K/mm3 (142-424); Red Blood Count 4.62 M/mm3 (4.20-5.40); Red Cell Distribution Width 14.7 % (11.5-17.5); White Blood Count 6.7 K/mm3 (4.8-10.8)
[2024-09-23 10:46] LABS: Albumin Level 4.1 g/dl (3.5-5.0); Chloride 108 mmol/L (98-107); Potassium 5.6 mmoL/L (3.5-5.1); Sodium 139 mmol/L (136-145)
[2024-09-23 10:49] LABS: Alanine Aminotransferase 33 U/L (12-78); Albumin/Globulin Ratio 1.4 (1.1-1.8); Alkaline Phosphatase 65 U/L (38-126); Anion Gap 10.6 mEq/L (5-15); Aspartate Amino Transferase 35 U/L (14-36); Bilirubin,Total 0.4 mg/dl (0.2-1.3); Blood Urea Nitrogen 13 mg/dl (7-17); Calcium 9.9 mg/dl (8.4-10.2); Carbon Dioxide 26 mmol/L (22.0-30.0); Cholesterol 214 mg/dl (140-200); Estimated Glomerular Filt Rate 49 ml/min (>60); GFR (African American) 60 ML/MIN (>60); Globulin 2.9 g/dL (1.3-3.2); Glucose 137 mg/dl (74-100); Iron 60 ug/dL (37-170); Magnesium 1.9 mg/dl (1.6-2.3); Triglycerides 152 mg/dl (30-150); VLDL Cholesterol 30 mg/dL (0-40)
[2024-09-23 10:50] LABS: Chol/HDL Ratio 5.1 (1-3.5); HDL Cholesterol 42 mg/dl (40-60)
[2024-09-23 11:01] LABS: Direct LDL Cholesterol 107.92 mg/dL (100-129)
[2024-09-23 11:05] LABS: Total Iron Binding Capacity 382 ug/dL (265-497)
[2024-09-23 11:24] LABS: Ferritin 24.1 ng/ml (11.1-264)
[2024-09-23 11:39] LABS: Hemoglobin A1C 7.3 % (4.0-6.0)
[2024-09-23 12:13] LABS: 25-OH Vitamin D, Total 110 ng/mL (30-100)
[2024-09-23 14:22] LABS: Vitamin B12 410 pg/mL (239-931)
== END 2024-09-23 23:59 | disposition home or self-care (01) ==
LOC: LAB 09:42
PROVIDERS: PCP Nurse Practitioner Family; Visit Provider Nurse Practitioner Family
DX: E11.22 Type 2 diabetes mellitus with diabetic chronic kidney disease (principal); N18.9 Chronic kidney disease, unspecified; E55.9 Vitamin D deficiency, unspecified; E53.8 Deficiency of other specified B group vitamins; E78.2 Mixed hyperlipidemia; G25.81 Restless legs syndrome; Z86.39 Personal history of other endocrine, nutritional and metabolic disease
CPT/HCPCS: 36415; 80053; 80061; 82306; 82607; 82728; 83036; 83540; 83550; 83735; 85025

== ENCOUNTER 2024-09-27 12:46 | Outpatient (CLI) | payer MEDICARE, SELFPAY ==
--- OUTSIDE RECORDS SUMMARY | 2024-07-13 17:30 | XMS_ITS ---
[place] [facility] [place] [address] [facility] [address] [place] [address] Care Team Providers Care Secondary Art Teacher Name Role Phone Sierra Jerry Primary Care Provider Migration, Provider Unavailable Unavailable Allergies Allergen (clinical drug ingredient) Drug/Non Drug Allergy documented on EMR Reaction Allergy Type Onset Date Status IV BENADRYL (uncoded) elevated b/p Allergy Active KEFLEX (uncoded) itching Allergy Act chelsea fluticasone / umeclidinium / vilanterol Trelegy Ellipta voiding issues Drug Allergy Active insulin glargine Toujeo SoloStar Unknown Drug Allergy Active Substance with 4-oobueiw-5-methylgl utaryl-coenzyme A reductase inhibitor mechanism of action (substance) Statins itching Drug Allergy Active Penicillin rash Drug Allergy Active valacyclovir valACYclovir cough/wheeze Drug Allergy Active REASON FOR VISIT [facility] To [facility] Conversion Encounter Medications Medication SIG (Take, Route, Frequency, Duration) Notes Start Date End Date Status Warfarin Sodium 2 MG 4 tablets orally once a day for 90 days Active Meclizine HCl 25 MG 1/2 or whole tablet orally at night as needed for vertigo for 90 days Active Lantus SoloStar 100 UNIT/ML 76 units subcutaneously once daily Active HumaLOG KwikPen 100 UNIT/ML inject up to 15 units with meals, not to exceed 45 units per day subcutaneously 3 times a day Active Breztri Aerosphere 160 MCG-4.8 MCG-9 MCG/INH 2 PUFF(S) INHALED 2 TIMES A DAY for 84 DAYS *Please review and pick correct strength-formulati on from [employer]che[employer] options. If intended option is not shown, discontinue and re-order from Quick Search* Active ALBUTEROL (EQV-PROAIR HFA) 90 MCG/INH USE 2 INHALATIONS EVERY 6 HOURS prn *Please review for potential replacement for e-prescription and drug interaction check* Active Azelastine HCl 137 MCG/SPRAY 1 spray(s) in each nostril 2 times a day for 30 days 01/31/2024 Active Losartan Potassium 100 MG 1 tab(s) orally once a day Active PEN NDL KELVIN 32G X 4MM PEN NEEDLES SUBCUTANEOUSLY THREE TIMES A DAY NEEDED for 90 DAYS *Please review for potential replacement for e-prescription and drug interaction check* Active ONE TOUCH ULTRA LANCETS NA DX: E11.22 TEST TID & NEEDED for 90 DAYS *Please review for potential replacement for e-prescription and drug interaction check* 01/07/2013 Active Dexcom G7 Sensor 1 SENSOR DIRECTED FOR CONTINUOUS GLUCOSE MONITORING for 90 DAYS *Please review and pick correct strength-formulati on from Searcheeze options. If intended option is not shown, discontinue and re-order from Quick Search* Active ONE TOUCH ULTRA TEST STRIPS BLUE DX: E11.22 TEST TID & NEEDED for 90 DAYS *Please review for potential replacement for e-prescription and drug interaction check* 07/06/2013 Active Dexcom G7 Molder Apprentice DIRECTED CONTINUOUS GLUCOSE MONITORING for 30 DAY(S) *Please review and pick correct strength-formulati on from Searcheeze options. If intended option is not shown, discontinue and re-order from Quick Search* 07/08/2022 Active Fluticasone Propionate 50 MCG/ACT 2 spray(s) in each nostril twice daily for 10 days 06/25/2022 Active BD KELVIN 2ND GEN PEN NEEDLE 4MM X 32G FOR USE WITH INSULIN SQ BID for 90 DAYS *Please review for potential replacement for e-prescription and drug interaction check* Active Ipratropium-Albuter ol 0.5-2.5 (3) MG/3ML 3 mL by nebulizer TID and q6 hours prn 03/22/2018 Active PROBIOTIC FORMULA (BACILLUS COAGULANS) - 1 CAP(S) ORALLY ONCE A DAY *Please review for potential replacement for e-prescription and drug interaction check* Active Mounjaro 2.5 MG/0.5 ML 2.5 MG SUBCUTANEOUSLY ONCE A WEEK for 84 DAYS *Please review and pick correct strength-formulati on from Searcheeze options. If intended option is not shown, discontinue and re-order from Quick Search* 05/02/2024 Active ONE TOUCH MINI GLUCOMETER DIRECTED *Please review for potential replacement for e-prescription and drug interaction check* 03/05/2014 Active Valium 5 MG 1 tab(s) orally once a day as needed for anxiety or insomnia for 90 days 08/14/2021 Active Xyzal Allergy 24HR 5 MG 1 po qd Active Reclast 5 MG/100ML as directed intravenously once Active Metoprolol Succinate ER 50 MG 1 tab(s) orally once a day for 90 days Active Citalopram Hydrobromide 40 MG 1 tab(s) orally once a day for 90 days Active Lansoprazole 30 MG 1 cap(s) orally once a day for 90 days Active metFORMIN HCl 1000 MG 1 tab(s) orally 2 times a day for 90 days Active Encounters Encounter Location Date Provider Diagnosis [facility] [place] [address] [facility] [address] [place] [address] 07/13/2024 Provider Migration Type 2 diabetes mellitus with diabetic chronic kidney disease E11.22 Assessments Encounter Date Diagnosis (ICD Code) Assessment Notes Treatment Notes Treatment Clinical Notes Section Notes 07/13/2024 Type 2 diabetes mellitus with diabetic chronic kidney disease (ICD-10 - E11.22) Plan Of Treatment Medication Medication Name Sig Start Date Stop Date Notes Meclizine HCl 25 MG 1/2 or whole tablet orally at night as needed for vertigo for 90 days Lantus SoloStar 100 UNIT/ML 76 units subcutaneously once daily HumaLOG KwikPen 100 UNIT/ML inject up to 15 units with meals, not to exceed 45 units per day subcutaneously 3 times a day Breztri Aerosphere 160 MCG-4.8 MCG-9 MCG/INH 2 PUFF(S) INHALED 2 TIMES A DAY for 84 DAYS *Please review a nd pick correct strength-formulation from Searcheeze options. If intended option is not shown, discontinue and re-order from Quick Search* [employer] G7 Sensor 1 SENSOR DIRECTED FOR CONTINUOUS GLUCOSE MONITORING for 90 DAYS *Please review an d pick correct strength-formulation from Searcheeze options. If intended option is not shown, discontinue and re-order from Quick Search* Mounjaro 2.5 MG/0.5 ML 2.5 MG SUBCUTANEOUSLY ONCE A WEEK for 84 DAYS 05/02/2024 *Please review a nd pick correct strength-formulation from [facility] options. If intended option is not shown, discontinue and re-order from Quick Search* Metoprolol Succinate ER 50 MG 1 tab(s) orally once a day for 90 days Citalopram Hydrobromide 40 MG 1 tab(s) orally once a day for 90 days Lansoprazole 30 MG 1 cap(s) orally once a day for 90 days metFORMIN HCl 1000 MG 1 tab(s) orally 2 times a day for 90 days Next Appt Details Provider Name:Sierra Magallanes ce, 11/07/2024 09:00:00 AM, [address], [address], [place], [address], Progress Notes * Elenita CONTRERASOB: 5 (68 yo F)Acc No.[id number]:07/13/2024 Patient: Dior CUNNINGHAM Provider: David Pereira :1955 A ge:68 Y S ex:Female Date:07/13/2024 Address:[address], [place], [id number] Pcp:Sierra Jerry Subjective: * Chief Complaints: * 1 . [facility] Conversion Encounter. * Medical History: * Medications: T aking Reclast 5 MG/100ML Solution as directed intravenously once , Taking Xyzal Allergy 24HR 5 MG Tablet 1 po qd , Taking ONE TOUCH MINI GLUCOMETER DIRECTED , Notes to Pharmacist: *Please review for potential replacement for e-prescription and drug interaction check*, Taking PROBIOTIC FORMULA (BACILLUS COAGULANS) - CAPSULE 1 CAP(S) ORALLY ONCE A DAY , Notes to Pharmacist: *Please review for potential replacement for e-prescription and drug interaction check*, Taking Ipratropium-Albuterol 0.5-2.5 (3) MG/3ML Solution 3 mL by nebulizer TID and q6 hours prn , Taking Valium 5 MG Tablet 1 tab(s) orally once a day as needed for anxiety or insomnia , Taking BD KELVIN 2ND GEN PEN NEEDLE 4MM X 32G FOR USE WITH INSULIN SQ BID , Notes to Pharmacist: *Please review for potential replacement for e-prescription and drug interaction check*, Taking Fluticasone Propionate 50 MCG/ACT Suspension 2 spray(s) in each nostril twice daily , Taking Dexcom G7 Molder Apprentice DIRECTED CONTINUOUS GLUCOSE MONITORING , Notes to Pharmacist: *Please review and pick correct strength-formulation from [employer] options. If intended option is not shown, discontinue and re-order from Quick Search*, Taking ONE TOUCH ULTRA TEST STRIPS BLUE DX: TEST TID & NEEDED , Notes to Pharmacist: *Please review for potential replacement for e-prescription and drug interaction check*, Taking ONE TOUCH ULTRA LANCETS NA NA DX: TEST TID & NEEDED , Notes to Pharmacist: *Please review for potential replacement for e-prescription and drug interaction check*, Taking PEN NDL KELVIN 32G X 4MM PEN NEEDLES SUBCUTANEOUSLY THREE TIMES A DAY NEEDED , Notes to Pharmacist: *Please review for potential replacement for e-prescription and drug interaction check*, Taking Losartan Potassium 100 MG Tablet 1 tab(s) orally once a day , Taking Azelastine HCl 137 MCG/SPRAY Solution 1 spray(s) in each nostril 2 times a day , Taking ALBUTEROL (EQV-PROAIR HFA) 90 MCG/INH AEROSOL USE 2 INHALATIONS EVERY 6 HOURS , Notes to Pharmacist: prn *Please review for potential replacement for e-prescription and drug interaction check*, Taking Warfarin Sodium 2 MG Tablet 4 tablets orally once a day * Allergies: P enicillin: rash, IV BENADRYL: elevated b/p, KEFLEX: itching, Statins: itching, valACYclovir: cough/wheeze, Trelegy Ellipta: voiding issues, Toujeo SoloStar. Objective: * Vitals: Assessment: * Assessment: 1. T ype 2 diabetes mellitus with diabetic chronic kidney disease - Plan: * Treatment: 2. O thers Refill Breztri Aerosphere AEROSOL, 160 MCG-4.8 MCG-9 MCG/INH, 2 PUFF(S), INHALED, 2 TIMES A DAY, 84 DAYS, 3, Refills 3, Notes to Pharmacist: *Please review and pick correct strength-formulation from [employer] options. If intended option is not shown, discontinue and re-order from Quick Search*; S tart Metoprolol Succinate ER Tablet Extended Release 24 Hour, 50 MG, 1 tab(s), orally, once a day, 90 days, 90 Tablet, Refills 1; S tart Citalopram Hydrobromide Tablet, 40 MG, 1 tab(s), orally, once a day, 90 days, 90 Tablet, Refills 1; S tart Lansoprazole Capsule Delayed Release, 30 MG, 1 cap(s), orally, once a day, 90 days, 90 Capsule, Refills 1; S tart Meclizine HCl Tablet, 25 MG, 1/2 or whole tablet, orally, at night as needed for vertigo, 90 days, 90, Refills 1; S tart Dexcom G7 Sensor, 1 SENSOR, DIRECTED, FOR CONTINUOUS GLUCOSE MONITORING, 90 DAYS, 9, Refills 3, Notes to Pharmacist: *Please review and pick correct strength-formulation from [employer]cheeze options. If intended option is not shown, discontinue and re-order from Quick Search*. * * Electronic signature of Prov ider Migration on 09/27/2024 at 12:48 PM EDT Sign off status: Pending * Provider: David middleton Migration Date: 0 07/13/2024 Generated for Mirta lynne/Evaristo/Yuri on: 0 09/27/2024 12:48 PM EDT
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
--- OUTSIDE RECORDS SUMMARY | 2024-09-25 06:27 | XMS_ITS ---
Author Organization [facility] [place] Address [address] [facility] [address] [place] [address] Care Team Providers Care Eligibility Worker Name Role Phone Sierra Jerry Primary Care Provider [phone] REASON FOR VISIT mri order Encounters Encounter Location Date Provider Diagnosis [facility] [place] [address] [facility] [address] [place] [address] 09/25/2024 Sierra Jerry Lumbago with sciatica, left side M54.42 Assessments Encounter Date Diagnosis (ICD Code) Assessment Notes Treatment Notes Treatment Clinical Notes Section Notes 09/25/2024 Lumbago with sciatica, left side (ICD-10 - M54.42) Plan Of Treatment Pending Test Test Name Order Date MRI : Lumbar Spine w/o contrast 09/26/19 25 Next Appt Details Provider Name:Sierra Magallanes ce, 11/07/2024 09:00:00 AM, [address], [address], [place], [address], Progress Notes * Elenita CONTRERASOB: (68 yo F)Acc No.[id number]:09/25/2024 Patient: Dior CUNNINGHAM :1955 A ge:68 Y S ex:Female [address], [address] Subjective: * Chief Complaints: * M ri order * Medical History: * Surgical History: * Hospitalization/Major Diagno stic Procedure: * Medications: Objective: * Vitals: * Physical Examination: Assessment: * Assessment: 1. L umbago with sciatica, left side - M54.42 Plan: * Treatment: * * Procedure Codes: * true * Date: Generated for Mirta lynne/Evaristo/Yuri on: 0 09/27/2024 12:48 PM EDT
--- OUTSIDE RECORDS SUMMARY | 2024-09-27 12:48 | XMS_ITS | Encounter Summary ---
Author Organization [facility] Address [address] [place] [address] Care Team Providers Care Safekeeping Clerk Name Role Phone Unavailable Primary Care Provider Unavailabl e Encounter Details Date Type Department Care Team (Late st Contact Info) Description 10/13/2020 Transcribed Document [facility] Family Medicine [address] [place] [address] ProviderDaniela MD [address], [place] [id number] Social History Tobacco Use Types Packs/Day Years [...] Lira MD - 10/13/2020 3:55 AM CDT [facility] ADDRESS [place], [place] [phone] Name:Hayley Hanley Visit Date:10/12/2020 20:44:00 Emergency Department Care Providers: Physician: LEXUS BELTRAN MD Physician: Our doctors and staff appreciate your choice of [facility] for your emergency medical care. Read these instructions carefully. Please call us if you have any questions about your medical problem. [facility] Emergency Department [phone] [facility] Emergency Department [phone] [facility] Emergency Department [phone] Patient Education Materials Hayley Hanley Crow has [...] in ear, nose, and throat (ENT) problems (front desk monitor) or a provider who specializes in disorders [...] safe for you. General instructions ??? Take wkhn-wgz-ertzotg and prescription medicines only as told by [...] provider. Document Revised: 09/05/2018 Document Reviewed: 09/05/2018 [employer] Patient Education ? 2020 [employer] is an EMERGENCY Every Minute [...] x-ray department to pick them up ? [facility] # [phone] ? [facility] # [phone] [address] [facility] # [phone] ? If you had cultures done and [...] quit. ? National Network of Tobacco Cessation [id number]-YRBL-NOW 1 [employer] 2 [employer] [phone] 3 Viktor/Taqueria Jensen [phone] FINANCIAL INFORMATION ?? [facility] provides financial counseling to anyone who requests our services. ?? Emergency Physicians are independently contracted to provide your care. You will receive a bill for the care provided to you by the Physician and/or the Physician Rib Builder. This will be a separat e bill [...] as recommended Patient Signature / or Patient Human Resources Operations Director Provider Signature Date documented in this encounter Plan of Treatment Not on file documented as of this encounter Visit Diagnoses Not on filedocumented in this encounter
--- OUTSIDE RECORDS SUMMARY | 2024-09-27 12:48 | XMS_ITS | Encounter Summary ---
Author Organization [facility] Address [address] [place] [address] Care Team Providers Care Corporate Operations Compliance Manager Name Role Phone Unavailable Primary Care Provider Unavailabl e Encounter Details Date Type Department Care Team (Late st Contact Info) Description 10/13/2020 Transcribed Document [facility] Family Medicine [address] [place] [address] ProviderDaniela MD [address] [place], [place] [address] Social History Tobacco Use Types Packs/Day Years [...] Lira MD - 10/13/2020 3:38 AM CDT [facility] ADDR[facility] [place], [place] [phone] Name:Hayley Hanley Visit Date:10/12/2020 20:44:00 Emergency Department Care Providers: Physician: LEXUS BELTRAN MD Physician: Our doctors and staff appreciate your choice of [facility] for your emergency medical care. Read these instructions carefully. Please call us if you have any questions about your medical problem. [facility] Emergency Department [phone] [facility] Emergency Department [phone] [facility] Emergency Department [phone] Patient Education Materials Hayley Hanley Crow has [...] in ear, nose, and throat (ENT) problems (telephone maintainer) or a provider who specializes in disorders [...] safe for you. General instructions ??? Take bayc-rhp-exlxzus and prescription medicines only as told by [...] provider. Document Revised: 09/05/2018 Document Reviewed: 09/05/2018 [employer] Patient Education ? 2020 [employer] is an EMERGENCY Every Minute [...] x-ray department to pick them up ? [facility] # [phone] ? [facility] # [phone] 1 [facility] # [phone] ? If you had cultures done and [...] quit. ? National Network of Tobacco Cessation [id number]-FGLP-NOW 1 [employer] 2 [employer] [phone] 3 Viktor/Taqueria Jensen [phone] FINANCIAL INFORMATION ?? [facility] provides financial counseling to anyone who requests our services. ?? Emergency Physicians are independently contracted to provide your care. You will receive a bill for the care provided to you by the Physician and/or the Physician Focus Puller. This will be a separat e bill [...] as recommended Patient Signature / or Patient Hand Molder And Caster Provider Signature Date Date/Time 10/12/2020 23:38 [facility] [...]
--- OUTSIDE RECORDS SUMMARY | 2024-09-27 12:48 | XMS_ITS | Data Portability ---
Author Organization MATTHEW - MICKY Machado [facility] Address [address] [place] [address] Care Team Providers Care Millinery Salesperson Name Role Phone YONATAN REYES Primary Care Provider [phone] Assessment No assessment recorded. Plan of Treatment Reminders Order Date Submit Date Provider Last Modified By Organization Details Last Modified Time Details Appointments None recorded. Lab None recorded. Referral None recorded. Procedures None recorded. Surgeries None recorded. Imaging None recorded. Medication Orders ipratropium bromide 42 mcg (0.06 %) nasal spray 2021 [email or web address] [facility], [address] [place] [address], [address], 12:04:00 pantoprazol e 20 mg tablet,riri yed release 2021 [email or web address] [facility], [address] [place] [address], [address], 12:13:59 Xyzal 5 mg tablet 2021 [email or web address], [address] [place] [address], [address], 17:02:15 Patient TargetsNo targets recorded. Patient Instructions Encounter Date Encounter Id Patient Instructions Last Modified By Organization Details Last Modified Time 11/01/2019 [id number] sore throat: car e instructions [email or web address] Not available 11/01/2019 09:18:22 1. Laryngoscope full risks, complications, and benefits of in-office procedure have been thoroughly discussed. Understanding was expressed, informed consent given, and we will proceed with the discussed in-office treatment plan. 2. f/u as needed for any new or worsening symptoms [email or web address] Not available 11/01/2019 09:16:27 02/22/2022 [id number] 1. Left CRP with Filiberto. 2. Use saline nasal spray for congestion. 3. F/u prn. [email or web address] Not available 02/22/2022 11:15:37 02/25/2022 [id number] 1. RTO OVIDIO if positional vertigo returns [...] LEVEL III MATTHEW ENT MD Jewel Kennedy [facility] Not available 02/25/2022 12:16:36 04/06/2022 [id number] 1. Flexible laryngoscopy performed - clinical photos obtained 2. Standard GERD and voice hygiene precautions reviewed. Avoid voice strain. 3. Increase daily water intake 4. Continue Omeprazole QD 5. NS spray, 2 sprays to each nostril BID 6. Rx - Ipratropium [place] 0.06% spray, 2 sprays each nostril BID 7. Continue Xyzal QPM 8. F/U in [address] Ricks with repeat laryngoscopy for continued management of chronic hoarseness and possible vocal cord lesions/nodules. Patient may benefit from speech therapy evaluation if hoarseness persist. MATTHEW ENT MD Jewel Ricks [facility] Not available 04/06/2022 12:06:57 06/03/2022 [id number] 1. Laryngoscopy performed ; clinical photos obtained. [...] Time 023 Laryngoscopy Flex completed Svitlana Georgeon [facility] 06/03/2022 15:35:14 022 Laryngoscopy Flex completed KATY COBURN, LOAN SERVICING OFFICER [address] [place], [address], [facility] 04/06/2022 12:01:06 020 Laryngoscopy Flex completed Sandy Hilda [facility] 11/01/2019 09:10:32 018 Audiogram completed PRICE COPELAND, AUD [address] [place], [address], [facility] 09/26/2017 11:16:02 018 Audiogram completed Yonatan Brady [facility] 09/26/2017 11:37:38 018 Laryngoscopy Flex completed Yonatan Bardy [facility] 09/26/2017 11:40:18 018 Audiogram completed NATHAN PELLETIER, AUD [address] [place], [address], [facility] 08/15/2017 10:00:39 018 Labyrinthotomy completed Karen Hernandez [facility] 08/15/2017 10:47:23 018 Labyrinthotomy completed Yonatan Brady [facility] 06/27/2017 13:19:31 018 Audiogram completed PINEDA DSOUZA, AUD [address] [place], [address], [facility] 05/02/2017 15:44:20 018 Labyrinthotomy completed ABRAN KENNEDY MD [address] [place], [address], [facility] 05/02/2017 17:56:29 018 Audiogram completed Yonatan Brady [facility] 05/02/2017 16:30:55 017 Tympanogram completed RACHID JULIAN, AUD [address] [place], [address], [facility] 03/14/2017 10:49:20 017 Audiogram completed RACHID JULIAN, AUD [address] [place], [address], [facility] 03/14/2017 10:49:18 017 Labyrinthotomy completed Yonatan Cidson [facility] 03/14/2017 11:54:38 017 Audiogram completed Yonatan Brady [facility] 03/14/2017 11:46:24 017 Tympanometry completed Yonatan Cidson [facility] 03/14/2017 11:46:16 017 Labyrinthotomy completed Yonatan Cidson [facility] 02/21/2017 11:18:41 017 Ears/Nose/Throat Surgery completed Yonatan Cidson [facility] 02/21/2017 10:50:55 017 Tympanogram completed PINEDA DSOUZA, AUD [address] [place], [address], [facility] 02/20/2017 16:51:54 017 Audiogram completed PINEDA DSOUZA AUD [address] [place], [address], [facility] 02/20/2017 16:51:52 017 Audiogram completed Yonatan Cidson [facility] 02/14/2017 10:32:44 017 Tympanometry completed Yonatan Cidson [facility] 02/14/2017 10:32:31 Appendectomy completed Yonatan Cidson [facility] 02/13/2017 14:09:26 Cholecystectomy completed Yonatan Cidson [facility] 02/13/2017 14:09:30 Imaging Results None recorded. Procedure Notes None recorded. Medical Equipment None Reported. Allergies Allergen ID Allergen Name Allergen Category Reaction Reaction Severity Criticality Documentation Date Start Date Code Code System Note Provider Name and Address Organization Details Recorded Time 202397 E-Mycin medicatio n rash Not available Not available 03/03/2016200660 8 RxNorm Yonatan bello [facility] 7 14:02:14 320981 Product containin g penicilli n (product) medicatio n itching Not available Not available 03/03/20162006 14522 8001 SNOMED Yonatan bello [facility] 7 14:02:18 458689 Livalo medicatio n respirato ry distress Not available Not available 03/03/20162011 60193 2 RxNorm Yonatan bello [facility] 7 14:02:16 403850 Benadryl medicatio n other Not available Not available 02/13/2017 94021 7 RxNorm makes BP wm bruno when she got via IV. Yonatan bello [facility] 7 14:02:45 Medications Name Sig Start [...] as direct.; Medicati on Descript ion: sumatrip dumont; Dosage:1 -2; Route:or al; refills: 3; Quantity [...] completed Not Available Not Available Not Available [facility] 100,000 unit/gram topical powder active Not [...] Updated DateTime 3 167.64 cm 35.5 kg/m2 47049.3 2 g 97.3 [degF] 75 /min 98 % 98 % 140 mm[Hg] 78 mm[Hg] Gela Gracia [facility] 3 15:15:05 Date Recorded Body height Body mass index (BMI) Body weight Body temperature Heart rate Systolic blood pressure Diastolic blood pressure Provider Name and Address Organization Details Last Updated DateTime 0 167.64 cm 34.6 kg/m2 03955.4 7 g 97.2 [degF] 80 /min 137 mm[Hg] 69 mm[Hg] Johnson Regla [facility] 0 08:15:21 Date Recorded Body weight Body mass index (BMI) Body height Oxygen saturation Oxygen saturation in Arterial blood by Pulse oximetry Heart rate Systolic blood pressure Diastolic blood pressure Provider Name and Address Organization Details Last Updated DateTime 2 513880. 69 g 36.2 kg/m2 167.64 cm 97 % 97 % 76 /min 143 mm[Hg] 81 mm[Hg] Maddy Hull [facility] 2 09:51:06 Date Recorded Body height Body mass index (BMI) Body weight Oxygen saturation Oxygen saturation in Arterial blood by Pulse oximetry Heart rate Systolic blood pressure Diastolic blood pressure Provider Name and Address Organization Details Last Updated DateTime 2 167.64 cm 36 kg/m2 212487. 1 g 97 % 97 % 73 /min 155 mm[Hg] 81 mm[Hg] Maddy Hull [facility] 2 09:54:25 Date Recorded Body height Body mass index (BMI) Body weight Body temperature Heart rate Systolic blood pressure Diastolic blood pressure Provider Name and Address Organization Details Last Updated DateTime 2 167.64 cm 35.9 kg/m2 317823. 31 g 97 [degF] 74 /min 145 mm[Hg] 78 mm[Hg] Karen Hernandez [facility] 2 10:21:10 Social History Question Answer Notes LastModified by Organizat ion Details LastModified Time Tobacco Smoking Status Never [facility]oker [facility] 02/13/2017 14:08:12 What Was The Date Of [...] Family history of malignant neoplasm grandm other [email or web address] Not available 02/13/2017 14:03:28 Brother Diabetes mellitus [email or web address] Not available 14:03:19 Sister Diabetes mellitus [email or web address] Not available 14:03:19 Mother Diabetes mellitus and grandm other [email or web address] Not available 02/13/2017 14:03:19 Medical History Condition [...] SNOMED-CT Code Diagnosis ICD10 Code Diagnosis Note [id number] MD MATTHEW RAMIREZ ENT [address] [place] [address] 02/14/2017 09:18:53 02/17/2017 11:52:05 Asymmetrical sensorineural hearing loss 734569125 H90.5 L>R Dysfunctio n of eustachian tube 20429554 H69.93 History of traumatic brain injury 3158749253 9100 Z87.071 [id number] LEX CISNEROS [place] [facility] [address] [place] [address] 02/14/2017 09:47:41 02/20/2017 16:53:26 Tinnitus of left ear 4750567719 106 H93.12 Dysfunctio n of eustachian tube 00182277 H69.93 Dizziness 181283314 R42 [id number] MD MATTHEW RAMIREZ ENT [address] [place] [address] 02/21/2017 09:38:41 02/21/2017 10:49:40 Asymmetrical sensorineural hearing loss 551734448 H90.5 L>R Dysfunctio n of eustachian tube 92216504 H69.93 History of traumatic brain injury 2724700642 9100 Z87.820 Sudden hearing loss 7947 1008 H91.22 Diabetes mellitus 236974 09 E11.9 [id number] MD MATTHEW RAMIREZ ENT [address] [place] [address] 03/14/2017 10:21:44 03/14/2017 12:55:42 Sudden hearing loss 28778189 H91.22 Asymmetric al sensorineural hearing loss 628590079 H90.5 L>R Dysfunctio n of eustachian tube 84228603 H69.93 History of traumatic brain injury 6751674875 9100 Z87.820 Diabetes mellitus 260017 09 E11.9 [id number] LEX BEAVERS [place] [facility] [address] 7 03/14/2017 10:32:17 03/14/2017 10:49:45 Sensorineural hearing loss of bilateral ears 228055263 H90.3 [id number] MD MATTHEW RAMIREZ ENT [address] [place] [address] 05/02/2017 13:43:29 05/02/2017 16:37:37 Sudden hearing loss 47886827 H91.22 Asymmetric al sensorineural hearing loss 295556846 H90.5 L>R Dysfunctio n of eustachian tube 70788526 H69.93 History of traumatic brain injury 3504767594 9100 Z87.820 Diabetes mellitus 827061 09 E11.9 Tinnitus of left ear 849 3369987 106 H93.12 [id number] LEX CISNEROS [place] [facility] [address] [place] [address] 05/02/2017 15:36:28 05/02/2017 16:22:06 Sensorineural hearing loss of bilateral ears 516063854 H90.3 [id number] MD MATTHEW RAMIREZ ENT [address] [place] [address] 06/01/2017 09:40:38 06/01/2017 11:36:44 Sudden hearing loss 13625937 H91.22 - Improved Asymmetric al sensorineural hearing loss 634946686 H90.5 - L>R Tinnitus of left ear 333 9845714 106 H93.12 - Improved Dysfunctio n of eustachian tube 84405789 H69.93 History of traumatic brain injury 7383364232 9100 Z87.820 Diabetes mellitus 458297 09 E11.9 [id number] ABRAN KENNEDY MD [place] [facility] [address] [place] [address] 06/27/2017 10:43:50 06/27/2017 14:12:24 Sudden hearing loss 83770814 H91.22 Asymmetric al sensorineural hearing loss 044932108 H90.5 - L>R Tinnitus of left ear 599 5422321 106 H93.12 Dysfunctio n of eustachian tube 17463684 H69.93 History of traumatic brain injury 3535690242 9100 Z87.820 Diabetes mellitus 775943 09 E11.9 [id number] ABRAN KENNEDY MD [facility] [address] [place] [address] 08/15/2017 08:47:42 08/15/2017 10:56:04 Sudden hearing loss 60012471 H91.22 - improving Asymmetric al sensorineural hearing loss 808603090 H90.5 - L>R, improving Tinnitus of left ear 792 7109529 106 H93.12 Dysfunctio n of eustachian tube 90111812 H69.93 History of traumatic brain injury 2220428931 9100 Z87.820 Diabetes mellitus 308683 09 E11.9 [id number] LEX GARZA [place] [facility] [address] [place] [address] 08/15/2017 09:43:32 08/15/2017 14:15:21 Asymmetrical sensorineural hearing loss 191309821 H90.5 [id number] ABRAN KENNEDY MD [facility] [address] [place] [address] 09/26/2017 09:22:44 09/26/2017 11:39:25 Sudden hearing loss 14474677 H91.22 - improving Asymmetric al sensorineural hearing loss 259167898 H90.5 - L>R, improving Tinnitus of left ear 158 7063470 106 H93.12 Dysfunctio n of eustachian tube 90986218 H69.93 History of traumatic brain injury 6153223637 9100 Z87.820 Diabetes mellitus 427515 09 E11.9 Pain in throat 444377074 R07.0 tenderness at the left junction of hyoid and laryngeal cartilage Gastroesop hageal reflux disease without esophagitis 175391292 K21.9 [id number] LEX YANCEY [place] [facility] [address] [place] [address] 09/26/2017 11:03:14 09/26/2017 11:17:59 Sensorineural hearing loss of bilateral ears 549899566 H90.3 [id number] LEX GARZA [facility] [address] [place] [address] 09/26/2017 11:53:31 09/28/2017 08:37:53 [id number] ABRAN KENNEDY MD [place] [address] [place] [address] 11/01/2019 07:51:31 11/01/2019 09:16:58 Pain in throat 113523267 R07.0 tenderness at the left junction of hyoid and laryngeal cartilage likely neuropathi c pain. This is been stable for 3-4 years and examinatio n is unremarkab le [id number] ABRAN KENNEDY MD [facility] [address] [place] [address] 02/22/2022 09:34:44 02/22/2022 14:53:59 Allergic rhinitis 75477843 J30.9 walnut trees, dogs, cats and dust mites Nasal congestion 4963920 0 R09.81 due to beta blockers Benign par oxysmal positional vertigo 064488509 H81.11 Acid reflux 363768900 K2 1.9 Chronic hoarseness 11079 00560 105 R49.0 History of traumatic brain injury 7219676136 9100 Z87.820 [id number] KATY COBURN APRN [place] [facility] [employer] [address] [place] [address] 02/25/2022 09:42:53 02/25/2022 15:54:31 Nasal congestion 86093799 R09.81 due to beta blockers Allergic rhinitis 260587 04 J30.9 walnut trees, dogs, cats and dust mites Benign par oxysmal positional vertigo 003420197 H81.11 - hx of Chronic hoarseness 77219 56926 105 R49.0 History of traumatic brain injury 3695632426 9100 Z87.820 Posterior rhinorrhea 758 69975 R09.82 Feeling of lump in throat 891671001 F45.8 Gastroesop hageal reflux disease 862724131 K21.9 - hx of [id number] KATY COBURN APRN [facility] [employer] [address] [place] [address] 04/06/2022 10:09:48 04/06/2022 13:08:18 Allergic rhinitis 71121591 J30.9 walnut trees, dogs, cats and dust mites Nasal congestion 8577489 0 R09.81 due to beta blockers Chronic hoarseness 75116 00937 105 R49.0 - Flexible laryngosco py 04/06/22: TVCs have a slight weakness and reduction and in ab/adducti on. There is overcompen sation of the right false cord and arytenoid with phonation. There are 3 areas of very faint, white oval, barely visible lesions of the cords that are possible early nodular developmen t (2 left, 1 right). 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 There is overcompen sation of the right false cord and arytenoid with phonation. There are 3 areas of very faint, white oval, barely visible lesions of the cords that are possible early nodular developmen t (2 left, 1 right). [id number] MD MATTHEW MICHELE III ENT [address] [place] [address] 06/03/2022 14:59:59 06/06/2022 07:46:44 Chronic hoarseness 2978696901 105 R49.0 - Flexible laryngosco py 04/06/22: TVCs have a slight weakness and reduction and in ab/adducti on. There is overcompen sation of the right false cord and arytenoid with phonation. There are 3 areas of very faint, white oval, barely visible lesions of the cords that are possible early nodular developmen t (2 left, 1 right). 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 Nasal septal spur 862658 009 J34.89 Deviated nasal septum 12 9248368 J34.2 Posterior rhinorrhea 758 79164 R09.82 Health Concerns Section Related Observation LastModified by Organization Detai ls LastModified Time None Recorded Concern Status LastModified by Organization Details LastModified Time None Recorded Advance Directives Directive None Recorded Payers Insurance Date Sequence Insurance Name Policy Number Policy [place] Covered Member ID Camp Member ID Guarantor Name 06/06/2022 1 [facility] (MEDICARE REPLACEMENT/A DVANTAGE - PPO) [id number] Dior Hanley [id number] Dior Hanley Notes Date Note Type Note [...] currently on coumadin therapy. ABRAN KENNEDY MD [address] [place] [address], [phone], [facility] 11/01/2019 [...] take acid reflux medication. ABRAN KENNEDY MD [address] [place] [address], [phone], [facility] 02/22/2022 13:16:13 02/25/2022 text/html Dior lucero [...] does take acid reflux medication. KATY COBURN, LOAN SERVICING OFFICER [address] [place], [address], [facility] 02/25/2022 12:16:41 04/06/2022 text/html Dior Hanley [...] in her right medial throat. KATY COBURN, LOAN SERVICING OFFICER [address] [place], [address], [facility] 04/06/2022 12:07:01 06/03/2022 text/html Dior returns [...] stones intermittently. HUMERA RICKS III, MD [address] [place], [address], [facility] 06/03/2022 17:06:00 OBGyn Episode No OBEpisode recorded.
--- OUTSIDE RECORDS SUMMARY | 2024-09-27 12:48 | XMS_ITS | Encounter Summary ---
Author Organization [employer] Address [address] [place] [address] Care Team Providers Care Flight Test Mechanic Name Role Phone Unavailable Primary Care Provider Unavailabl e Encounter Details Date Type Department Care Team (Late st Contact Info) Description 10/13/2020 Transcribed Document [facility] [address] [place] [address] ProviderDaniela MD [address] [place], [place] [address] Social History Tobacco Use Types Packs/Day Years Used Date Smoking Tobacco: Never Assessed Comments Unknown Sex and Gender Information Value Date Recorded Sex Assigned at Not on file Legal Sex Female 10:09 AM CDT Gender Identity Not on file Sexual Orientation Not on file documented as of this encounter Miscellaneous Notes * Cerner Conversion Note - Daniela ProviderMD - 10/13/2020 3:38 AM CDT [facility] Emergency Department Depart Summary PERSON INFORMATION Name Dior Hanley Age 64 Years 1955 Sex Female Language PCP Marital Status Phone [phone] Visit Id Visit Reason N and/or V Specialty Enc Type Emergency Med Service Referred by Track Group [facility] Discharge Tracking Id [id number] Checkout Checkin 10/12/2020 20:44:00 Acuity 3 - Urgent [facility] Dispo Type Arrival 10/12/2020 20:44:00 Reg Status LOS 000 02:54 Address: ALEJANDRA KENT [address] [place], [place] [id number] POWERFORM PHYSICIAN NOTES VITALS INFORMATION Vital Sign Triage Temp 98.8 Temp Route Pulse Rate 88 Respiratory Rate 18 Blood Pressure 177/ 80 LOCATION INFORMATION Arrival Nurse Unit Room Bed 10/12/2020 20:44:00 [facility] ED Waitroom ([facility]) 10/12/2020 20:47:59 [facility] ED 2 MEDICAL INFORMATION Allergy Info: [...]
--- NOTE | 2024-09-27 12:49 | MR_ITS ---
FINAL REPORT TECHNIQUE: Multiplanar and multisequence imaging of the lumbar spine was obtained without contrast. CLINICAL HISTORY: LUMBAGO WITH SCIATICIA. LOW BACK PAIN. RIGHT HIP AND LEG PAIN FINDINGS: There is normal alignment of the lumbar vertebral bodies. Vertebral body height is preserved. The spinal cord ends at the level of L2. There is normal signal intensity within the substance of the distal spinal cord. No acute bone marrow edema or pathologic marrow replacement. No acute paraspinal abnormality is identified. Left renal cyst is identified. L1-2: There is no focal disc herniation, central canal stenosis or neuroforaminal narrowing. L2-3: An annular disc bulges present with facet osteoarthropathy. Mild inferior left neuroforaminal narrowing. L3-4: An annular disc bulge is present with degenerative endplate changes and facet osteoarthropathy. Mild bilateral neuroforaminal narrowing. L4-5: An annular disc bulge is present with degenerative endplate changes and facet osteoarthropathy. Mild right and moderate to severe left neuroforaminal narrowing. L5-S1: An annular disc bulge is present with degenerative endplate changes and facet osteoarthropathy. Severe right and moderate left neuroforaminal narrowing. IMPRESSION: Multilevel degenerative disc disease. Reviewed, Interpreted and Dictated by Reyna Orozco MD Transcribed by Cayal Wade Authenticated and [facility]
--- OUTSIDE RECORDS SUMMARY | 2024-09-27 12:49 | XMS_ITS | Encounter Summary ---
Author Organization [employer] Address [address] [place] [address] Care Team Providers Care Developmental Services Worker Name Role Phone Unavailable Primary Care Provider Zachary lau Encounter Details Date Type Department Care Team (Late st Contact Info) Description 10/13/2020 Transcribed Document [facility] [place] [address] ProviderDaniela MD [address] [place] [id number] Social History Tobacco Use Types Packs/Day Years [...] On: 10/12/2020 20:49 EDT by Suzy Montoya Payable Processor Assessment Triage Date/Time : 10/12/2020 20:49 EDT Suzy Montoya Rn - 10/12/2020 20:49 EDT DCP GENERIC CODE Tracking Acuity : 3 - Urgent [facility] Tracking Group : [place] Suzy Montoya Rn - 10/12/2020 20:49 EDT [...] Preferred Communication Mode : Verbal Languages : Slovenian Child/Parent Domestic Concerns : None Threats of Suicide : No Suzy Montoya Rn - 10/12/2020 20:49 EDT Height and Weight Height Source : Stated Height Entry Format : Ford Height, Inches : 65 Inch(Converted to: 5 ft 5 Inch, 165.10 cm) Clinical Height : 165.1 cm Weight Source : Stated Type of Weight Measurement Est : Ford Weight, est lb : 220 lb Estimated Clinical Dosing Weight : 100 kg [place] Body Weight : 57 kg Body Surface [...] ; Reactions: itching ; Created By: DRAGAN EBLTRAN; Reaction Status: Active ; Category: Drug ; Substance: penicillin ; Type: Allergy ; Updated By: DRAGAN BELTRAN; Reviewed Date: 10/12/2020 20:59 EDT documented in this encounter Plan of Treatment Not on file documented as of this encounter Visit Diagnoses Not on filedocumented in this encounter
--- OUTSIDE RECORDS SUMMARY | 2024-09-27 12:49 | XMS_ITS | Encounter Summary ---
Author Organization [employer] Address [address] [place] [address] Care Team Providers Care Sessions Clerk Name Role Phone Unavailable Primary Care Provider Unavailabl e Encounter Details Date Type Department Care Team (Late st Contact Info) Description 06/06/2022 Outside Orders [facility] Outpatient Physical Therapy [address] [facility] [address] [place] [phone] Oliverio Ricks MD [address] [place] [address] [address] [place] [address] Hoarseness (Primary Dx) Social History Tobacco Use [...]
--- OUTSIDE RECORDS SUMMARY | 2024-09-27 12:49 | XMS_ITS | Referral Summary ---
Author Organization [employer] Address [address] [place] [address] Care Team Providers Care Rodeo Rider Name Role Phone Unavailable Primary Care Provider [...] Plan of Treatment Not on file Insurance [facility] MEDICARE ADVANTAGE
--- OUTSIDE RECORDS SUMMARY | 2024-09-27 12:49 | XMS_ITS | Clinical Summary ---
Author Organization [employer] Address [address] [place] [address] Care Team Providers Care Epic Willow Analyst Name Role Phone Unavailable Primary Care Provider [...] Treatment Not on file Insurance [place] [id number] [facility] MEDICARE ADVANTAGE
--- OUTSIDE RECORDS SUMMARY | 2024-09-27 12:49 | XMS_ITS | Patient Health Record ---
Author Organization [facility] Address [address] [place] [address] Care Team Providers Care Senior Water/Wastewater Engineer Name Role Phone Claritza Sierra Primary Care Provider Radha Wharton Unavailable [phone] Sierra Guy Unavailable [phone] Migration, Provider Unavailable Unavailable Allergies Allergen (clinical drug ingredient) Drug/Non Drug Allergy documented on EMR Reaction Allergy Type Onset Date Status IV BENADRYL (uncoded) elevated b/p Allergy Active KEFLEX (uncoded) itching Allergy Act chelsea fluticasone / umeclidinium / vilanterol Trelegy Ellipta voiding issues Drug Allergy Active insulin glargine Toujeo SoloStar Unknown Drug Allergy Active Substance with 0-slzgwez-6-methylgl utaryl-coenzyme A reductase inhibitor mechanism of action [...] 0.2 0.0-0.4 K/mm3 BA# 0.0 0-0.2 K/mm3 Microalbumin (In-House) Reviewed date:03/21/2024 01:23:40 PM Interpretation:Normal Performing Lab: Notes/Report: Normal ALB 30mg CRE 300mg A:C <30mg/g M-Comprehensive Metabolic Pa hui Reviewed date:03/25/2024 03:01:30 [...] AGRATIO 1.5 1.1-1.8 ALP 52 38-126 U/L M-Hemoglobin A1C Reviewed date:09/24/2024 10:43:29 AM Interpretation: Performing Lab: Notes/Report: HGBA1C 7.3 4.0-6.0 % < 6% Non-Diabetic Level < 7% Controlled Diabetic Level > 8% Poorly Controlled Diabetic Level M-Hemoglobin A1C Reviewed date:03/25/2024 03:01:31 PM Interpretation: Performing Lab: Notes/Report: HGBA1C 7.4 4.0-6.0 % < 6% Non-Diabetic Level < 7% Controlled Diabetic Level > 8% Poorly Controlled Diabetic Level M-Complete Blood Count Auto Diff Reviewed date:09/24/2024 [...] 0 IG% 0.3 NRBC# 0 IG# 0.02 M-Magnesium Reviewed date:09/24/2024 10:43:29 AM Interpretation: Performing Lab: Notes/Report: MG 1.9 1.6-2.3 mg/dl M-Ferritin Reviewed date:09/24/2024 10:43:30 AM Interpretation: Performing Lab: Notes/Report: FERNANDO 24.1 11.1-264 ng/ml M-Lipid Panel Reviewed date:09/24/2024 10:43:30 AM Interpretation: Performing Lab: Notes/Report: Patient Fasting? Y TRIG 152 30-150 mg/dl CHOL 214 140-200 mg/dl DLDL 107.92 100-129 mg/dL VLDL 30 0-40 mg/dL HDL 42 40-60 mg/dl CHLHDL 5.1 1-3.5 H-TVITD Reviewed date:12/15/2023 05:40:35 PM Interpretation: [...] Performing Lab: Notes/Report: VITB12 583 239-931 pg/mL DEXA Hip and Spine - Screeni ng Reviewed date:12/25/2023 06:03:09 PM Interpretation: Performing Lab: Notes/Report: X ray [...] date:05/06/2024 03:25:25 PM Interpretation: Performing Lab: Notes/Report: M-INR/PT Reviewed date:2023 08:27:15 AM Interpretation: Performing Lab: Notes/Report: PT 20.9 10.1-12.5 seconds INR 2.00 0.9-1.1 INDICATION INR RANGE Therapy for DVT, PE, Atrial Fib, 2.0-3.0 Prophylaxis for VTE. Therapy for Mechanical Heart Valve, 2.5-3.5 Prevention of Sytemic Emolism secondary to AMI. M-Comprehensive Metabolic Pa hui Reviewed date:09/24/2024 10:43:29 [...] AGRATIO 1.4 1.1-1.8 ALP 65 38-126 U/L M-Complete Blood Count Auto Diff Reviewed date:2023 [...] 0.1 0-0.2 K/mm3 M-PHA INR Fingerstick Reviewed date:02/13/2024 03:50:43 PM [...] PREVENTION OF SYSTEMIC EMBOLISM SECONDARY TO AMI Ultrasound : Liver Reviewed date:12/25/2023 06:12:19 PM Interpretation: Performing Lab: Notes/Report: H-TVITD Reviewed date:09/24/2024 09:50:52 AM Interpretation: Performing Lab: Notes/Report: TVITD 110 30-100 ng/mL Deficient <20 ng/mL Insufficient 20-30 ng/mL Sufficient 30-100 ng/mL Potential Toxicity >100 ng/mL H-FETIBC Reviewed date:09/24/2024 09:51:08 AM Interpretation: Performing Lab: Notes/Report: FE 60 37-170 ug/dL DTIBC 382 265-497 ug/dL IRONSAT 15.74088 15-55 % H-VITB12 Reviewed date:09/24/2024 09:50:35 AM Interpretation: Performing Lab: Notes/Report: VITB12 410 239-931 pg/mL M-PHA INR Fingerstick Reviewed date:10/28/2023 11:18:52 AM [...] PREVENTION OF SYSTEMIC EMBOLISM SECONDARY TO AMI Mammogram : Bilateral Reviewed date:12/25/2023 06:00:25 PM Interpretation: Performing Lab: Notes/Report: M-Lipid Panel Reviewed date:2023 08:27:30 AM Interpretation: Performing Lab: Notes/Report: Patient Fasting? Y TRIG 157 30-150 mg/dl CHOL 227 140-200 mg/dl DLDL 141.75 100-129 mg/dL VLDL 31 0-40 mg/dL HDL 41 40-60 mg/dl CHLHDL 5.5 1-3.5 M-Hemoglobin A1C Reviewed date:2023 08:27:44 AM Interpretation: Performing Lab: Notes/Report: HGBA1C 7.5 4.0-6.0 % < 6% Non-Diabetic Level < 7% Controlled Diabetic Level > 8% Poorly Controlled Diabetic Level M-Comprehensive Metabolic Pa hui Reviewed date:2023 08:27:38 [...] AGRATIO 1.1 1.1-1.8 ALP 54 38-126 U/L M-PHA INR Fingerstick Reviewed date:03/13/2024 09:25:58 PM [...] SECONDARY TO AMI M-PHA INR Fingerstick Reviewed date:11/23/2023 09:59:51 PM [...] MON, THEN RESUME 8 MG DAILY THEREAFTER. Medications Medication SIG (Take, Route, Frequency, Duration) Notes Start Date End Date Status Dexcom G7 Sensor 1 SENSOR DIRECTED FOR CONTINUOUS GLUCOSE MONITORING for 90 DAYS *Please review and pick correct strength-formulati on from [employer] options. If intended option is not shown, [...] review and pick correct strength-formulati on from [employer] options. If intended option is not shown, discontinue and re-order from [employer] Search* Active ALBUTEROL (EQV-PROAIR HFA) 90 MCG/INH USE 2 INHALATIONS EVERY 6 HOURS prn *Please review for potential replacement for e-prescription and drug interaction check* Active Azelastine HCl 137 MCG/SPRAY 1 spray(s) in each nostril 2 times a day for 30 days 01/31/2024 Active ONE TOUCH ULTRA LANCETS NA DX: E11.22 TEST TID & NEEDED for 90 DAYS *Please review for potential replacement for e-prescription and drug interaction check* 01/07/2013 Active ONE TOUCH ULTRA TEST STRIPS BLUE DX: E11.22 TEST TID & NEEDED for 90 DAYS *Please review for potential replacement for e-prescription and drug interaction check* 07/06/2013 Active Dexcom G7 Coal Or Ore Controller DIRECTED CONTINUOUS GLUCOSE MONITORING for 30 DAY(S) *Please review and pick correct strength-formulati on from [employer] options. If intended option is not shown, discontinue and re-order from Quick Search* 07/08/2022 Active Baclofen 5 MG 1 tablet with food o r milk Orally Once a day at bedtime for 30 days 09/24/2024 Active Fluticasone Propionate 50 MCG/ACT 2 spray(s) [...] or insomnia for 90 days 08/14/2021 Active Losartan Potassium 100 MG 1/2 tab orally once a day Active Ipratropium-Albuter ol 0.5-2.5 (3) MG/3ML 3 [...] 5 MG/100ML as directed intravenously once Active Immunizations Vaccine Route Administration Date Status Comme nts Pneumovax 23 IM Intramuscular 12/31/2020 Administered Influenza-Fluzone 3+years (NON-MEDICARE) IM Intramuscular 02/23/2015 Administered Influenza-Fluzone 3+years (NON-MEDICARE) IM Intramuscular 01/14/2016 Administered Influenza-Fluzone 3+years (NON-MEDICARE) IM Intramuscular 02/05/2018 Administered Fluzone High Dose IM Intramuscular 02/04/2020 Administered Fluzone High Dose IM Intramuscular 12/31/2020 Administered Fluzone High Dose IM Intramuscular 01/06/2022 Administered Fluzone High Dose IM Intramuscular 02/09/2023 Administered Fluzone High Dose IM Intramuscular 03/21/2024 Administered FLUZONE 6MO - OLDER IM Intramuscular 01/15/2019 Administer ed Arexvy IM Intramuscular 11/30/2023 Administered Prevnar PCV-13 (Pneumococcal conjugate 13) IM Intramuscular 12/26/2019 Administered Influenza (Fluzone)--Medicare only IM Intramuscular 01/20/2017 Administered Fluvirin--Influenza vaccine 3+ year IM Intramuscular 02/20/2013 Administered Fluvirin--Influenza vaccine 3+ year IM Intramuscular 02/21/2014 Administered Adacel (Tdap) Unknown 04/19/2019 Administered Problems Problem Type SNOMED Code ICD Code Onset Dates Problem Status W/U Status Risk Notes Problem 88330921 Type 2 diabetes mellitus with diabetic chronic kidney disease (E11.22) Active confirmed Problem 98519566 Type 2 diabetes mellitus with hyperglycemia (E11.65) Active confirmed Problem 89027385 Other chronic pa in (G89.29) Active confirmed Problem 37133326 Chronic rhinitis (J31.0) Active confirmed Problem 762944582 Lumbago with sciatica, left side (M54.42) Active confirmed Problem 373516889 Chronic kidney disease, stage 2 (mild) (N18.2) Active confirmed Problem Screening for malignant neoplasm of breast (400053984) Encounter for screening mammogram for malignant neoplasm of breast (Z12.31) Active confirmed Problem 212104783 Depression with anxiety (F41.8) Active confirmed Problem 58347872 Vitamin D deficiency (E55.9) Active confirmed Problem 97559709 Essential hypertension (I10) Active confirmed Problem 788150422 B12 deficiency (E53.8) Active confirmed Problem 01057023 Restless leg syndrome (G25.81) Active confirmed Problem 86158222 Chronic allergic rhinitis (J30.9) Active confirmed Problem 604590888 long-term (curre nt) use of insulin (Z79.4) Active confirmed Problem 85191513 Other chronic pa in (G89.29) Active confirmed Problem 273263581 BMI 38.0-38.9,ad ult (Z68.38) Active confirmed Problem 799348620 Gastroesophageal reflux disease without esophagitis (K21.9) Active confirmed Problem Postmenopausal state (73722540) Post menopausal syndrome (Z78.0) Active confirmed Problem 038423450 BMI 37.0-37.9, adult (Z68.37) Active confirmed Problem 063429103 BMI 36.0-36.9,ad ult (Z68.36) Active confirmed Problem Arthritis of hip (42791462) Hip arthritis (M19.90) Active confirmed Problem 35243945 Situational anxi ety (F41.8) Active confirmed Problem 35812892 Venous (peripher al) insufficiency (I87.2) Active confirmed Problem 52458756 Depression, reactive (F32.9) Active confirmed Problem 122136219 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) Active confirmed Problem Ventricular premature complex (disorder) (228095541) PVC (premature ventricular contraction) (I49.3) Active confirmed Problem 836802721 Asthma, moderate persistent (J45.40) Active confirmed Problem 803615651 Recurrent deep v ein thrombosis (DVT) of both lower extremities (I82.403) Active confirmed Problem Spondylosis without myelopathy (02809898) Arthritis of back (M47.9) Active confirmed Problem 73531508 MARYAM on CPAP (G47.33) Active confirmed Problem 818407022 Postmenopausal osteoporosis (M81.0) Active confirmed Problem 916107012 Mixed dyslipidem ia (E78.2) Active confirmed Problem 05536940 Current moderate episode of major depressive disorder without prior episode (F32.1) Active confirmed Problem 043096068 History of iron deficiency (Z86.39) Active confirmed Problem 88888207 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 Blood pressure diastolic 60 mm Hg 09/23/2024 Height 64 in 09/23/2024 Blood pressure systolic 116 mm Hg 09/23/2024 Weight 203 lbs 09/23/2024 BMI 34.84 kg/m2 09/23/2024 Encounters Encounter Location Date Provider Diagnosis [facility] [place] [address] [place] [address] 11/08/2023 Sierra Claritza [facility] [place] [address] [place] [address] 11/20/2023 Sierra Claritza [facility] [place] [address] [place] [address] 12/02/2023 Sierra Claritza [facility] [place] [address] [place] [address] 12/04/2023 Sierra Claritza [facility] [place] [address] [place] [address] 2023 Sierra Claritza Elevated liver enzym es R74.8 [facility] [place] [address] [place] [address] 01/22/2024 Sierra Claritza Type 2 diabetes mellitus with hyperglycemia E11.65 [facility] [place] [address] [place] [address] 01/22/2024 Sierra Claritza [facility] [place] [address] [place] [address] 01/23/2024 Sierra Claritza Type 2 diabetes mellitus with hyperglycemia E11.65 [facility] [place] [address] [place] [address] 01/31/2024 Sierra Claritza [facility] [address] [place] [address], [place] [address] 03/11/2024 Sierra Claritza Type 2 diabetes mellitus with diabetic chronic kidney disease E11.22 [facility] [place] [address] [place] [address] 03/25/2024 Sierra Claritza Type 2 diabetes mellitus with diabetic chronic kidney disease E11.22 [facility] [place] [address] [place] [address] 05/02/2024 Sierra Claritza [facility] [place] [address] [place] [address] 05/06/2024 Sierra Claritza Arthritis of back M47.9 [facility] [place] [address] [place] [address] 05/08/2024 Sierra Jerry Mid back pain M54.9 [facility] [place] [address] [facility] [address] [place] [address] 05/23/2024 Sierra Claritza Type 2 diabetes mellitus with diabetic chronic kidney disease E11.22 [facility] [place] [address] [facility] [address] [place] [address] 06/27/2024 Sierra Jerry [facility] [place] [address] [facility] [address] [place] [address] 07/15/2024 Sierra Jerry [facility] [place] [address] [facility] [address] [place] [address] 09/23/2024 Sierra eJrry [facility] [place] [address] [facility] [address] [place] [address] 09/24/2024 Sierra Jerry [facility] [place] [address] [facility] [address] [place] [address] 09/24/2024 [facility] Type 2 diabetes mellitus with diabetic chronic kidney disease E11.22 [facility] [place] [address] [facility] [address] [place] [address] 09/25/2024 Sierra Jerry Lumbago with sciatic a, left side M54.42 [facility] [place] [address] [facility] [address] [place] [address] 07/13/2024 Provider Migration Type 2 diabetes mellitus with diabetic chronic kidney disease E11.22 [facility] [place] [address] [facility] [address] [place] [address] 11/30/2023 Sierra Claritza Chronic kidney disease, stage 2 (mild) N18.2 [...] screening mammogram Z12.31 and Postmenopausal osteoporosis M81.0 [facility] [place] [address] [place] [address] 03/21/2024 Sierra Jerry Type 2 diabetes mellitus with diabetic chronic kidney disease E11.22 ; Right flank pain R10.9 ; Chronic rhinitis J31.0 ; Immunization(s) administered Z23 ; Recurrent deep vein thrombosis (DVT) of both lower extremities I82.403 and Essential hypertension I10 [facility] [place] [address] [place] [address] 05/02/2024 Sierra Jerry Low back pain, unspecified M54.50 ; Other chronic pain G89.29 and Type 2 diabetes mellitus with diabetic chronic kidney disease E11.22 [facility] [place] [address] [place] [address] 09/23/2024 Sierra Jerry Type 2 diabetes mellitus [...] side M54.42 and Other chronic pain G89.29 [facility] [place] [address] [place] [address] 11/13/2023 Sierra Jerry Acute URI J06.9 [facility] [place] [address] [place], [place] [address] 02/08/2024 Sierra Jerry Type 2 diabetes mellitus with diabetic chronic kidney disease E11.22 ; Subacute sinusitis, unspecified location J01.90 and Nasal congestion R09.81 [facility] [place] [address] [place], [place] [address] 04/05/2024 Sierra Brooks Acute recurrent frontal sinusitis J01.11 Assessments Encounter Date Diagnosis (ICD Code) Assessment Notes Treatment Notes Treatment Clinical Notes Section Notes 11/13/2023 Acute URI (ICD-10 - J06.9) Symptoms have improved some since taking Zithromax. No additional antibiotics are indicated at this time. Recommend plain Mucinex twice daily. Return precautions reviewed 11/30/2023 Chronic kidney disease, stage 2 (mild) (ICD-10 - N18.2) 2023 Elevated liver enzymes (ICD-10 - R74.8) [...] increasing Truliciy to 3mg weekly as tolerated. 11/30/2023 Medicare annual wellness visit, subsequent (ICD-10 [...] and exercise as much as tolerated recommended 03/21/2024 Right flank pain (ICD-10 - R10.9) [...] agrees with the plan of care above. 05/02/2024 Other chronic pain (ICD-10 - G89.29) 05/02/2024 Low back pain, unspecified (ICD-10 - M54.50) 05/06/2024 Arthritis of back (ICD-10 - M47.9) 05/08/2024 Mid back pain (ICD-10 - M54.9) 05/23/2024 Type 2 diabetes mellitus with diabetic chronic kidney disease (ICD-10 - E11.22) 07/13/2024 Type 2 diabetes mellitus with diabetic chronic kidney disease (ICD-10 - E11.22) 09/24/2024 Type 2 diabetes mellitus with diabetic chronic kidney disease (ICD-10 - E11.22) 09/25/2024 Lumbago with sciatica, left side (ICD-10 - M54.42) 09/23/2024 Type 2 diabetes mellitus with diabetic [...] diabetic chronic kidney disease (ICD-10 - E11.22) 05/02/2024 Type 2 diabetes mellitus with diabetic chronic kidney disease (ICD-10 - E11.22) 11/30/2023 Mixed dyslipidemia (ICD-10 - E78.2) 03/21/2024 Immunization(s) administered (ICD-10 - Z23) 09/23/2024 [...] E55.9) 09/23/2024 B12 deficiency (ICD-10 - E53.8) 11/30/2023 Recurrent deep vein thrombosis (DVT) of both lower extremities (ICD-10 - I82.403) 11/30/2023 Essential hypertension (ICD-10 - I10) 09/23/2024 Mixed dyslipidemia (ICD-10 - E78.2) 09/23/2024 Acute non-recurrent maxillary sinusitis (ICD-10 - J01.00) 11/30/2023 B12 deficiency (ICD-10 - E53.8) 11/30/2023 Vitamin D deficiency (ICD-10 - E55.9) 09/23/2024 Lumbago with sciatica, left side (ICD-10 - M54.42) 09/23/2024 Other chronic pain (ICD-10 - G89.29) 11/30/2023 Depression, reactive (ICD-10 - F32.9) 11/30/2023 [...] 06/20/2014 Holter Monitor : Event Recorder 08/12/19 Physical Therapy 01/05/2015 Physical Therapy 08/21/2013 Mammogram : Bilateral 08/23/2012 Mammogram : Bilateral 08/23/2012 Dietary Consult 10/04/2013 H-CBC with AUTO DIFF 07/24/2017 H-CBC with AUTO DIFF 06/20/2014 H-CBC with AUTO DIFF 06/27/2014 H-CBC with AUTO DIFF 08/31/2015 H-CBC with AUTO DIFF 03/20/2017 H-CBC with AUTO DIFF 11/26/2014 H-VITAMIN B12 07/24/2017 H-VITAMIN B6 (PYRIDOXAL PHOSPHAT 015 H-FERRITIN 11/26/2014 H-FERRITIN 07/24/2017 H-CMP 07/24/2017 H-CMP 11/30/2015 H-CMP 08/31/2015 H-CMP 03/20/2017 H-CMP 11/26/2014 H-CMP 06/20/2014 H-MAGNESIUM 06/20/2014 H-LIPID PANEL 11/26/2014 H-LIPID PANEL 03/20/2017 H-LIPID PANEL 08/31/2015 H-LIPID PANEL 07/24/2017 H-LIPID PANEL 02/17/2014 H-HGBA1C 07/24/2017 H-HGBA1C 11/30/2015 H-HGBA1C 08/31/2015 H-HGBA1C 11/26/2014 H-TSH 06/20/2014 H-TSH 07/24/2017 H-VIT D, 25-HYDROXY 07/24/2017 H-VIT D, 25-HYDROXY 08/31/2015 H-MICROALBUMIN URINE 08/31/2015 H-RADHA PROFILE 06/20/2014 H-ANTI PHOSPHOLIPID ANTIBODY 02/15/2012 Pulmonary Function Test- Complete 2020 MRI : Lumbar Spine w/o contrast 09/26/19 25 H-VITAMIN C 06/20/2014 M-Complete Blood Count Auto Diff 019 M-Complete Blood Count Auto Diff 020 M-Complete Blood Count Auto Diff 024 M-D-Dimer 11/30/2020 M-Comprehensive Metabolic Panel 11/30/19 24 M-Comprehensive Metabolic Panel 12/26/19 M-Comprehensive Metabolic Panel 12/28/19 M-Hemoglobin A1C 12/26/2019 M-Hemoglobin A1C 12/27/2018 M-Hemoglobin A1C 11/30/2023 M-Lipid Panel 11/30/2023 M-Lipid Panel 12/27/2018 M-Lipid Panel 12/26/2019 M-Vitamin B12 09/23/2024 M-Vitamin B12 07/09/2020 M-Vitamin B12 02/09/2023 M-Vitamin B12 11/30/2023 M-Vitamin B12 12/27/2018 M-Vitamin D 25 Hydroxy 12/27/2018 M-Vitamin D 25 Hydroxy 11/30/2023 M-Vitamin D 25 Hydroxy 02/09/2023 M-Vitamin D 25 Hydroxy 07/09/2020 M-Vitamin D 25 Hydroxy 09/23/2024 M-Iron and TIBC 09/23/2024 M-Microalb/Creat Ratio, [facility] Ur 020 M-Microalb/Creat Ratio, [facility] Ur 018 M-Microalb/Creat Ratio, [facility] Ur 023 M-Microalb/Creat Ratio, [facility] Ur 024 M-Microalb/Creat Ratio, [facility] Ur 019 M-Microalb/Creat Ratio, [facility] Ur 019 Physical Therapy Eval and Treat 05/06/19 25 Physical Therapy Eval and Treat 07/11/19 24 Future Test Test Name Order Date H-BMP 07/09/2012 Next Appt Details Provider Name:Sierra Magallanes ce, 11/07/2024 09:00:00 AM, [address], [place], [address], Insurance Providers Payer Name Payer Address Payer Phone Subscriber Number Group Number Insured Name Patient Relationship to Insured Coverage Start Date Coverage End Date [employer] MED[employer] [address] [address] [place] [address] [id number] Dior Hanley Self - patient is the [...]
--- OUTSIDE RECORDS SUMMARY | 2024-09-27 12:49 | XMS_ITS | Encounter Summary ---
Author Organization [employer] Address [address] [place] [address] Care Team Providers Care Tie Knitter Helper Name Role Phone Unavailable Primary Care Provider Unavailabl e Encounter Details Date Type Department Care Team (Late st Contact Info) Description 10/13/2020 Transcribed Document [facility] [place] [address] [place] [address] ProviderDaniela MD [address], [place] [address] Social History Tobacco Use Types Packs/Day Years [...] Lira MD - 10/13/2020 3:55 AM CDT [facility] [place], [place] [phone] Name:Hayley Hanley Visit Date:10/12/2020 20:44:00 Emergency Department Care Providers: Physician: LEXUS BELTRAN MD Physician: Our doctors and staff appreciate your choice of [facility] for your emergency medical care. Read these instructions carefully. Please call us if you have any questions about your medical problem. Emergency Department [phone] [facility] Emergency Department [phone] [facility] Emergency Department [phone] Patient Education Materials Hayley Hanley Crow has [...] in ear, nose, and throat (ENT) problems (director software development) or a provider who specializes in disorders [...] safe for you. General instructions ??? Take joma-pgd-ekremty and prescription medicines only as told by [...] provider. Document Revised: 09/05/2018 Document Reviewed: 09/05/2018 [employer] Patient Education ? 2020 [employer] STROKE is an EMERGENCY Every Minute [...] x-ray department to pick them up ? # [phone] ? [facility] # [phone] 1 [facility] # [phone] ? If you had cultures done and [...] quit. ? National Network of Tobacco Cessation NHqhjjkau5-743-MXQM-NOW 1 [place] [employer] 2 [place] [employer] [phone] 3 Viktor/Taqueria Jensen [phone] FINANCIAL INFORMATION ?? [facility] provides financial counseling to anyone who requests our services. ?? Emergency Physicians are independently contracted to provide your care. You will receive a bill for the care provided to you by the Physician and/or the Physician Real Estate Executive Assistant. This will be a separat e bill [...] as recommended Patient Signature / or Patient International Freight Forwarder Provider Signature Date Date/Time 10/12/2020 23:55 [facility] [...]
--- OUTSIDE RECORDS SUMMARY | 2024-09-27 12:49 | XMS_ITS | Encounter Summary ---
Author Organization [employer] Address [address] [place] [address] Care Team Providers Care Director Of Regional Sales Name Role Phone Unavailable Primary Care Provider Unavailabl e Encounter Details Date Type Department Care Team (Late st Contact Info) Description 10/13/2020 Transcribed Document [facility] [place] [facility] [place] [address] ProviderDaniela MD [address] [place], [place] [address] Social History Tobacco Use Types Packs/Day Years Used Date Smoking Tobacco: Never Assessed Comments Unknown Sex and Gender Information Value Date Recorded Sex Assigned at Not on file Legal Sex Female 10:09 AM CDT Gender Identity Not on file Sexual Orientation Not on file documented as of this encounter Miscellaneous Notes * Cerner Conversion Note - Daniela ProviderMD - 10/13/2020 3:55 AM CDT [facility] Emergency Department Depart Summary PERSON INFORMATION Name Dior Hanley Age 64 Years 1955 Sex Female Language PCP Marital Status Phone [phone] Visit Id Visit Reason N and/or V Specialty Enc Type Emergency Med Service Referred by Track Group [facility] Discharge Tracking Id [id number] Checkout 10/12/2020 23:55:12 Checkin 10/12/2020 20:44:00 Acuity 3 - Urgent [facility] Dispo Type Arrival 10/12/2020 20:44:00 Reg Status LOS 000 03:11 Address: ALEJANDRA KENT [address] [place] [id number] [employer] PHYSICIAN NOTES VITALS INFORMATION Vital Sign Triage Temp 98.8 Temp Route Pulse Rate 88 Respiratory Rate 18 Blood Pressure 177/ 80 LOCATION INFORMATION Arrival Nurse Unit Room Bed 10/12/2020 20:44:00 [facility] ED Waitroom ([facility]) 10/12/2020 20:47:59 [facility] ED 2 10/12/2020 23:55:12 [facility] ED Checkout ([facility]) MEDICAL INFORMATION Allergy Info: Benadryl; penicillin; [...]
== END 2024-09-27 23:59 | disposition home or self-care (01) ==
LOC: RAD 12:46
PROVIDERS: PCP Nurse Practitioner Family; Visit Provider Nurse Practitioner Family
DX: M51.16 Intervertebral disc disorders with radiculopathy, lumbar region (principal)
CPT/HCPCS: 72148

== ENCOUNTER 2024-10-07 08:48 | Outpatient (CLI) | payer MEDICARE, SELFPAY ==
--- OUTSIDE RECORDS SUMMARY | 2024-07-13 17:30 | XMS_ITS ---
Author Organization [facility] Address [address] [facility] [address] [place] [address] Care Team Providers Care Sustainability Consultant Name Role Phone Sierar Jerry Primary Care Provider [phone] Migration, Provider Unavailable Unavailable Allergies Allergen (clinical drug ingredient) Drug/Non Drug Allergy documented on EMR Reaction Allergy Type Onset Date Status IV BENADRYL (uncoded) elevated b/p Allergy Active KEFLEX (uncoded) itching Allergy Act chelsea fluticasone / umeclidinium / vilanterol Trelegy Ellipta voiding issues Drug Allergy Active insulin glargine Toujeo SoloStar Unknown Drug Allergy Active Substance with 7-iwwvphh-2-methylgl utaryl-coenzyme A reductase inhibitor mechanism of action (substance) Statins itching Drug Allergy Active Penicillin rash Drug Allergy Active valacyclovir valACYclovir cough/wheeze Drug Allergy Active REASON FOR VISIT [facility] To [facility] Conversion Encounter Medications Medication SIG (Take, Route, [...] review and pick correct strength-formulati on from [employer] options. If intended option is not shown, [...] review and pick correct strength-formulati on from [employer] options. If intended option is not shown, discontinue and re-order from Quick Search* Active ONE TOUCH ULTRA TEST STRIPS BLUE DX: E11.22 TEST TID & NEEDED; Duration: 90 DAYS *Please review for potential replacement for e-prescription and drug interaction check* 07/06/2013 Active Dexcom G7 Esol Instructor DIRECTED CONTINUOUS GLUCOSE MONITORING; Duration: 30 DAY(S) *Please review and pick correct strength-formulati on from [employer] options. If intended option is not shown, [...] review and pick correct strength-formulati on from [employer] options. If intended option is not shown, [...] Active Encounters Encounter Location Date Provider Diagnosis [facility] [place] [address] [facility] [address] [place] [address] 07/13/2024 Provider Migration Type 2 diabetes mellitus [...] *Please review and pick correct strength-formulation from [employer] options. If intended option is not shown, [...] *Please review and pick correct strength-formulation [facility]. If intended option is not shown, [...] 2 times a day; Duration: 90 days Next Appt Details Provider Name:Sierra Magallanes , 11/07/2024 09:00:00 AM, [address] [facility] [address] [facility], [address], [place], [address], Progress Notes * Elenita CONTRERASOB: 5 (68 yo F)Acc No.[id number]:07/13/2024 Patient: Dior CUNNINGHAM Provider: David Pereira :1955 A ge:68 Y S ex:Female Date:07/13/2024 Address:[facility] [address], [id number] Pcp:Sierra Jerry Subjective: * Chief Complaints: * [facility] . [facility] * Medical History: * [...] nostril twice daily , Taking Dexcom G7 Esol Instructor DIRECTED CONTINUOUS GLUCOSE MONITORING , Notes to Pharmacist: *Please review and pick correct strength-formulation from [employer] options. If intended option is not shown, [...] mellitus with diabetic chronic kidney disease - E11 Plan: * Treatment: 2. O thers Refill Breztri Aerosphere AEROSOL, 160 MCG-4.8 MCG-9 MCG/INH, 2 PUFF(S), INHALED, 2 TIMES A DAY, 84 DAYS, 3, Refills 3, Notes to Pharmacist: *Please review and pick correct strength-formulation from [employer] options. If intended option is not shown, [...] *Please review and pick correct strength-formulation from [employer] options. If intended option is not shown, discontinue and re-order from Quick Search*. * * Electronic signature of Prov ider Migration on 10/07/2024 at 08:50 AM EDT Sign off status: Pending * Provider: David middleton Migration Date: 0 07/13/2024 Generated for Mirta lynne/Evaristo/Yuri on: 10/07/2024 08:50 AM EDT
--- OUTSIDE RECORDS SUMMARY | 2024-09-23 04:45 | XMS_ITS ---
Author Organization [facility] Address [address] [facility] [address] [facility] [address] [place] [address] Care Team Providers Care Taxation Consultant Name Role Phone Sierra Jerry Primary Care Provider Allergies Allergen (clinical drug ingredient) Drug/Non Drug Allergy documented on EMR Reaction Allergy Type Onset Date Status IV BENADRYL (uncoded) elevated b/p Allergy Active KEFLEX (uncoded) itching Allergy Act chelsea fluticasone / umeclidinium / vilanterol Trelegy Ellipta voiding issues Drug Allergy Active insulin glargine Toujeo SoloStar Unknown Drug Allergy Active Substance with 0-xcnecfn-5-methylgl utaryl-coenzyme A reductase inhibitor mechanism of action [...] sciatic a, left side (M54.42) Referral Organization [facility] Referring Provider First Name Sierra Referring Provider Last Name Claritza Referring Provider Speciality [facility] Referred Organization [facility] Referred Address [address], [place], [place],[address], Referred Provider Specialty Diagnostic R adiology General Notes Isabela Figueroa 2024 10:29:08 AM >sent to [facility] to schedule Referral Priority Routine REASON FOR VISIT med ck, productive cough-thick yellowish-brown mucus, back pain-feels a knot on her lower spine-hurts to walk, RLS and other issues Medications Medication SIG (Take, Route, Frequency, Duration) Notes Start Date End Date Status Dexcom G7 Sensor 1 SENSOR DIRECTED FOR CONTINUOUS GLUCOSE MONITORING; Duration: 90 DAYS *Please review and pick correct strength-formulati on from AutoeBidan options. If intended option is not shown, discontinue and re-order from Quick Search* Active Meclizine HCl 25 MG 1/2 or whole tablet orally at night as needed for vertigo; Duration: 90 days Active Lansoprazole 30 MG 1 cap(s) orally once a day; Duration: 90 days Active Citalopram Hydrobromide 40 MG 1 tab(s) orally once a day; Duration: 90 days Active metFORMIN HCl 1000 MG 1 tab(s) orally 2 times a day; Duration: 90 days Active Metoprolol Succinate ER 50 MG 1 tab(s) orally once a day; Duration: 90 days Active Lantus SoloStar 100 UNIT/ML 50 units subcutaneously once daily Active HumaLOG KwikPen 100 UNIT/ML inject up to 15 units with meals, not to exceed 45 units per day subcutaneously 3 times a day Active Breztri Aerosphere 160 MCG-4.8 MCG-9 MCG/INH 2 PUFF(S) INHALED 2 TIMES A DAY; Duration: 84 DAYS *Please review and pick correct strength-formulati on from Gentronix options. If intended option is not shown, [...] drug interaction check* 07/06/2013 Active Dexcom G7 Suspect Artist Supervisor DIRECTED CONTINUOUS GLUCOSE MONITORING; Duration: 30 DAY(S) *Please review and pick correct strength-formulati on from Gentronix options. If intended option is not shown, [...] or insomnia; Duration: 90 days 08/14/2021 Active Ipratropium-Albuter ol 0.5-2.5 (3) MG/3ML 3 mL by nebulizer TID and q6 hours prn 03/22/2018 Active PROBIOTIC FORMULA (BACILLUS COAGULANS) - 1 CAP(S) ORALLY ONCE A DAY *Please review for potential replacement for e-prescription and drug interaction check* Active Doxycycline Hyclate 100 MG 1 capsule Orally twice a day; Duration: 7 days 09/23/2024 Active Warfarin Sodium 2 MG 4 tablets orally once a day; Duration: 90 days Active ONE TOUCH MINI GLUCOMETER DIRECTED *Please review for potential replacement for e-prescription and drug interaction check* 03/05/2014 Active Xyzal Allergy 24HR 5 MG 1 po qd Active Reclast 5 MG/100ML as directed intravenously once Active PEN NDL KELVIN 32G X 4MM PEN NEEDLES SUBCUTANEOUSLY THREE TIMES A DAY; Duration: 90 days Active Mounjaro 2.5 MG/0.5ML INJECT 1 SYRINGE SUBCUTANEOUSLY ONCE A WEEK; Duration: 84 Active Problems Problem Type SNOMED Code ICD Code Onset Dates Problem Status W/U Status Risk Notes Problem History of iron deficiency (253445355) History of iron deficiency (Z86.39) Active confirmed Problem Sciatica (08830527) Lumbago with sciatica, left side (M54.42) Active confirmed Vital Signs Temperature 98 degrees Fahrenheit 09/23/2024 Blood pressure systolic 116 mm Hg 09/24/19 25 Blood pressure diastolic 60 mm Hg 025 Heart Rate 98 /min 09/23/2024 Height 64 in 09/23/2024 Weight 203 lbs 09/23/2024 BMI 34.84 kg/m2 09/23/2024 Encounters Encounter Location Date Provider Diagnosis [facility] [address] [facility] [address] [place] [address] 09/23/2024 Sierra Jerry Type 2 diabetes mellitus [...] MG 1 capsule Ora lly twice a day; Duration: 7 days 09/23/2024 Pending Test Test Name Order Date M-Vitamin B12 09/23/2024 M-Vitamin D 25 Hydroxy 09/23/2024 M-Iron and TIBC 09/23/2024 Referrals Referral Date Details 09/23/2024 09/23/2024, MRI LS S pine, no contrast, [address] [facility], [place], [address], Next Appt Details Follow Up: 4 Months, Reason: Provider Name:Sierra Magallanes ce, 11/07/2024 09:00:00 AM, [address], [address], [place], [address], Progress Notes * Elenita CONTRERASOB: (68 yo F)Acc No.[id number]:09/23/2024 Progress Notes Patient: Dior CUNNINGHAM Provider: PARVEZ Brock :1955 A ge:68 Y S ex:Female Date:09/23/2024 Address:[address], [place], [id number] Subjective: * Chief Complaints: * 1 . [...] uncle: . M aternal aunt: . S iblings: alive, all siblings have diabetes older sister- [...] no. Travel outside [place]: no. 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 * Medications: T aking Reclast 5 [...] nostril twice daily , Taking Dexcom G7 Suspect Artist Supervisor DIRECTED CONTINUOUS GLUCOSE MONITORING , Notes to [...] *Please review and pick correct strength-formulation from Gentronix options. If intended option is not shown, [...] *Please review and pick correct strength-formulation from Gentronix options. If intended option is not shown, [...] AM EDT > pt informed and appt [facility] was reviewed by Carmel Kelly on [...] Brock Date: 0 09/23/2024 Generated for Mirta lynne/Evaristo/eTransmitting on: 0 10/07/2024 08:51 AM EDT History and Physical Notes * Examination [...]
--- OUTSIDE RECORDS SUMMARY | 2024-09-25 06:27 | XMS_ITS ---
Author Organization [facility] Address [address] [facility] [address] [place] [address] Care Team Providers Care Environmental Services Worker Name Role Phone Sierra Jerry Primary Care Provider [phone] Results Component Value Reference Range Notes MRI : Lumbar Spine w/o contr ast Reviewed date:10/04/2024 02:30:25 PM Interpretation: Performing Lab: Notes/Report: REASON FOR VISIT mri order Encounters Encounter Location Date Provider Diagnosis [facility] [place] [address] [place], [place] [address] 09/25/2024 Sierra Jerry Lumbago with sciatica, left side M54.42 Assessments Encounter Date Diagnosis (ICD Code) Assessment Notes Treatment Notes Treatment Clinical Notes Section Notes 09/25/2024 Lumbago with sciatica, left side (ICD-10 - M54.42) Plan Of Treatment Next Appt Details Provider Name:Sierra Magallanes ce, 11/07/2024 09:00:00 AM, [address], [address], [place], [place], [address], Progress Notes * Elenita CONTRERASOB: (68 yo F)Acc No.[id number]:09/25/2024 Patient: Farzana STEVENSONEmeliaDior :1955 A ge:68 Y S ex:Female Address:[address] [place], [place] [address] Subjective: * Chief Complaints: * M ri order * Medical History: * Surgical History: * Hospitalization/Major Diagno stic Procedure: * Medications: Objective: * Vitals: * Physical Examination: Assessment: * Assessment: 1. L umbago with sciatica, left side - M54.42 Plan: * Treatment: * * Procedure Codes: * true * Date: Generated for Mirta lynne/Evaristo/Ingasmitting on: 0 10/07/2024 08:51 AM EDT
--- OUTSIDE RECORDS SUMMARY | 2024-10-07 08:50 | XMS_ITS | Data Portability ---
Author Organization MATTHEW - MICKY Machado HOFFMEISTER CLOSED Address [address] [facility] [address] [place] [address] Care Team Providers Care Hand Hose Cutter Name Role Phone YONATAN REYES Primary Care Provider [phone] Assessment No assessment recorded. Plan of Treatment Reminders Order Date Submit Date Provider Last Modified By Organization Details Last Modified Time Details Appointments None recorded. Lab None recorded. Referral None recorded. Procedures None recorded. Surgeries None recorded. Imaging None recorded. Medication Orders ipratropium bromide 42 mcg (0.06 %) nasal spray 2021 [employer] [facility], [address] [place] [address], [address], 12:04:00 pantoprazol e 20 mg tablet,riri yed release 2021 GUANAK[employer]O [employer] [facility], [address] [place] [address], [address], 12:13:59 Xyzal 5 mg tablet 2021 [email or web address] [facility], [address] [place] [address], [address], 17:02:15 Patient TargetsNo targets recorded. Patient Instructions Encounter Date Encounter Id Patient Instructions Last Modified By Organization Details Last Modified Time 11/01/2019 [id number] sore throat: car e instructions [email or web address] Not available 11/01/2019 09:18:22 1. Laryngoscope full risks, complications, and benefits of in-office procedure have been thoroughly discussed. Understanding was expressed, informed consent given, and we will proceed with the discussed in-office treatment plan. 2. f/u as needed for any new or worsening symptoms [email or web address] Not available 11/01/2019 09:16:27 02/22/2022 [id number] 1. Left CRP with Filiberto. 2. Use saline nasal spray for congestion. 3. F/u prn. [email or web address] Not available 02/22/2022 11:15:37 02/25/2022 [id number] 1. RTO OVIDIO if positional vertigo returns [...] LEVEL III MATTHEW ENT MD Jewel Kennedy [facility] Not available 02/25/2022 12:16:36 04/06/2022 [id number] 1. Flexible laryngoscopy performed - clinical photos obtained 2. Standard GERD and voice hygiene precautions reviewed. Avoid voice strain. 3. Increase daily water intake 4. Continue Omeprazole QD 5. NS spray, 2 sprays to each nostril BID 6. Rx - Ipratropium [facility] 0.06% spray, 2 sprays each nostril BID 7. Continue Xyzal QPM 8. F/U in [address] Ricks with repeat laryngoscopy for continued management of chronic hoarseness and possible vocal cord lesions/nodules. Patient may benefit from speech therapy evaluation if hoarseness persist. MATTHEW ENT MD Jewel Ricks [email or web address] Not available 04/06/2022 12:06:57 06/03/2022 [id number] 1. Laryngoscopy performed ; clinical photos obtained. [...] Recorded Time 023 Laryngoscopy Flex completed Svitlana Sosa [facility] 06/03/2022 15:35:14 022 Laryngoscopy Flex completed KATY COBURN, OVEN BUILDER [address] [place], [address], [facility] 04/06/2022 12:01:06 020 Laryngoscopy Flex completed Sandy Stevens [facility] 11/01/2019 09:10:32 018 Audiogram completed PRICE COPELAND AUD [address] [place], [address], [facility] 09/26/2017 11:16:02 018 Audiogram completed Yonatan Brady [facility] 09/26/2017 11:37:38 018 Laryngoscopy Flex completed Yonatan Brady [facility] 09/26/2017 11:40:18 018 Audiogram completed LEX GARZA [address] [place], [address], [facility] 08/15/2017 10:00:39 018 Labyrinthotomy completed Karen Hernandez [facility] 08/15/2017 10:47:23 018 Labyrinthotomy completed Yonatan Brady [facility] 06/27/2017 13:19:31 018 Audiogram completed PINEDA DSOUZA, AUD [address] [place], [address], [facility] 05/02/2017 15:44:20 018 Labyrinthotomy completed ABRAN KENNEDY MD [address] [place], [address], [facility] 05/02/2017 17:56:29 018 Audiogram completed Yonatan Brady [facility] 05/02/2017 16:30:55 017 Tympanogram completed LEX BEAVERS [address] [place], [address], [facility] 03/14/2017 10:49:20 017 Audiogram completed RACHID JULIAN, AUD [address] [place], [address], [facility] 03/14/2017 10:49:18 017 Labyrinthotomy completed Yonatanyulia Brady [facility] 03/14/2017 11:54:38 017 Audiogram completed Yonatanyulai Brady [facility] 03/14/2017 11:46:24 017 Tympanometry completed Yonatan Jose Antonio [facility] 03/14/2017 11:46:16 017 [facility] 11:18:41 017 Ears/Nose/Throat Surgery completed Kensal Brady [facility] 02/21/2017 10:50:55 017 Tympanogram completed PINEDA DSOUZA, AUD [address] [place], [address], [facility] 02/20/2017 16:51:54 017 Audiogram completed PINEDA DSOUZA AUD [address] [place], [address], [facility] 02/20/2017 16:51:52 017 Audiogram completed Kensal Jose Antonio [facility] 02/14/2017 10:32:44 017 Tympanometry completed Kensal Jose Antonio [facility] 02/14/2017 10:32:31 Appendectomy completed Yonatan Jose Antonio [facility] 02/13/2017 14:09:26 Cholecystectomy completed Kensal Jose Antonio [facility] 02/13/2017 14:09:30 Imaging Results None recorded. Procedure Notes None recorded. Medical Equipment None Reported. Allergies Allergen ID Allergen Name Allergen Category Reaction Reaction Severity Criticality Documentation Date Start Date Code Code System Note Provider Name and Address Organization Details Recorded Time 453788 E-Mycin medicatio n rash Not available Not available 03/03/2016200660 8 RxNorm Yonatan bello [facility] 7 14:02:14 102671 Product containin g penicilli n (product) medicatio n itching Not available Not available 03/03/20162006 61181 8001 SNOMED Yonatan bello [facility] 7 14:02:18 274523 Livalo medicatio n respirato ry distress Not available Not available 03/03/20162011 01403 2 RxNorm Yonatan bello [facility] 7 14:02:16 077680 Benadryl medicatio n other Not available Not available 02/13/2017 7 RxNorm makes BP wm bruno when she got via IV. Yonatan bello [facility] 7 14:02:45 Medications Name Sig Start Date [...] completed Not Available Not Available Not Available [facility] 100,000 unit/gram topical powder active Not Available [...] Updated DateTime 3 167.64 cm 35.5 kg/m2 81253.3 2 g 97.3 [degF] 75 /min 98 % 98 % 140 mm[Hg] 78 mm[Hg] Gela Gracia [facility] 3 15:15:05 Date Recorded Body height Body mass index (BMI) Body weight Body temperature Heart rate Systolic blood pressure Diastolic blood pressure Provider Name and Address Organization Details Last Updated DateTime 0 167.64 cm 34.6 kg/m2 12187.4 7 g 97.2 [degF] 80 /min 137 mm[Hg] 69 mm[Hg] Elizabeth Arauz [facility] 0 08:15:21 Date Recorded Body weight Body mass index (BMI) Body height Oxygen saturation Oxygen saturation in Arterial blood by Pulse oximetry Heart rate Systolic blood pressure Diastolic blood pressure Provider Name and Address Organization Details Last Updated DateTime 2 342554. 69 g 36.2 kg/m2 167.64 cm 97 % 97 % 76 /min 143 mm[Hg] 81 mm[Hg] Maddy Hull [facility] 2 09:51:06 Date Recorded Body height Body mass index (BMI) Body weight Oxygen saturation Oxygen saturation in Arterial blood by Pulse oximetry Heart rate Systolic blood pressure Diastolic blood pressure Provider Name and Address Organization Details Last Updated DateTime 2 167.64 cm 36 kg/m2 844615. 1 g 97 % 97 % 73 /min 155 mm[Hg] 81 mm[Hg] Maddy Formanier [facility] 2 09:54:25 Date Recorded Body height Body mass index (BMI) Body weight Body temperature Heart rate Systolic blood pressure Diastolic blood pressure Provider Name and Address Organization Details Last Updated DateTime 2 167.64 cm 35.9 kg/m2 618258. 31 g 97 [degF] 74 /min 145 mm[Hg] 78 mm[Hg] Karen Hernandez [facility] 2 10:21:10 Social History Question Answer Notes LastModified by Organizat ion Details LastModified Time Tobacco Smoking Status [facility] 02/13/2017 14:08:12 What Was The Date Of Your Most Recent Tobacco Screening? 09/26/2017 Information n ot available 05/28/2019 Sex: Unknown Functional Status Question Answer Note LastModified by Organization D etails LastModified Time What is your level of alcohol consumption? None [email or web address] Information not available 02/13/2017 Mental Status None recorded. Family History Relationship Description Onset Age of this Age Resolved Age Notes LastModified by Organization Details LastModified Time Unspecified Relation Complication of anesthesia ernesto Not available 1 04/15/2016 14:02:57 Unspecified Relation Asthma ernesto Not available 09/2016 14:03:01 Unspecified Relation Family history of malignant neoplasm grandm other [email or web address] Not available 02/13/2017 14:03:28 Brother Diabetes mellitus [email or web address] Not available 14:03:19 Sister Diabetes mellitus [email or web address] Not available 14:03:19 Mother Diabetes mellitus and grandm other Not available 02/13/2017 14:03:19 Medical History Condition Response Depression Y Anxiety Disorder Y Arthritis Y Cancer N Bleeding Disorder Y Asthma Y Anesthesia Complications N Allergies/Hayfever Y Anemia Y Diabetes Y Hyperlipidemia Y Hypertension N Gynecological HistoryNo gynecological history recorded. Obstetrics History GPAL:G 0 P 0 0 0 0 Past Encounters Encounter ID Performer Location Encounter Start Date Encounter Closed Date Diagnosis/Indication Diagnosis SNOMED-CT Code Diagnosis ICD10 Code Diagnosis Note [id number] MD MATTHEW RAMIREZ ENT [address] [place] [address] 02/14/2017 09:18:53 02/17/2017 11:52:05 Asymmetrical sensorineural hearing loss 498709792 H90.5 L>R Dysfunctio n of eustachian tube 03170957 H69.93 History of traumatic brain injury 0652024806 9100 Z87.153 [id number] LEX CISNEROS [place] [address] [place] [address] 02/14/2017 09:47:41 02/20/2017 16:53:26 Tinnitus of left ear 9218129524 106 H93.12 Dysfunctio n of eustachian tube 45136797 H69.93 Dizziness 520102450 R42 [id number] MD MATTHEW RAMIREZ ENT [address] [place] [address] 02/21/2017 09:38:41 02/21/2017 10:49:40 Asymmetrical sensorineural hearing loss 044996513 H90.5 L>R Dysfunctio n of eustachian tube 05124014 H69.93 History of traumatic brain injury 7453438861 9100 Z87.820 Sudden hearing loss 7947 1008 H91.22 Diabetes mellitus 523604 09 E11.9 [id number] MD MATTHEW RAMIREZ ENT [address] [place] [address] 03/14/2017 10:21:44 03/14/2017 12:55:42 Sudden hearing loss 99392456 H91.22 Asymmetric al sensorineural hearing loss 915705539 H90.5 L>R Dysfunctio n of eustachian tube 32591532 H69.93 History of traumatic brain injury 5484782716 9100 Z87.820 Diabetes mellitus 680693 09 E11.9 [id number] LEX BEAVERS [place] [address] [place] [address] 03/14/2017 10:32:17 03/14/2017 10:49:45 Sensorineural hearing loss of bilateral ears 873585026 H90.3 [id number] MD MATTHEW RAMIREZ ENT [address] [place] [address] 05/02/2017 13:43:29 05/02/2017 16:37:37 Sudden hearing loss 33085635 H91.22 Asymmetric al sensorineural hearing loss 987487042 H90.5 L>R Dysfunctio n of eustachian tube 30883599 H69.93 History of traumatic brain injury 5120052029 9100 Z87.820 Diabetes mellitus 884679 09 E11.9 Tinnitus of left ear 415 9673287 106 H93.12 [id number] LEX CISNEROS [place] [address] [place] [address] 05/02/2017 15:36:28 05/02/2017 16:22:06 Sensorineural hearing loss of bilateral ears 101199257 H90.3 [id number] MD MATTHEW RAMIREZ ENT [address] 7 06/01/2017 09:40:38 06/01/2017 11:36:44 Sudden hearing loss 45305238 H91.22 - Improved Asymmetric al sensorineural hearing loss 579848655 H90.5 - L>R Tinnitus of left ear 414 8565057 106 H93.12 - Improved Dysfunctio n of eustachian tube 96282539 H69.93 History of traumatic brain injury 9135296369 9100 Z87.820 Diabetes mellitus 320992 09 E11.9 [id number] ABRAN KENNEDY MD [place] [address] [place] [address] 06/27/2017 10:43:50 06/27/2017 14:12:24 Sudden hearing loss 84529050 H91.22 Asymmetric al sensorineural hearing loss 912841436 H90.5 - L>R Tinnitus of left ear 592 7311506 106 H93.12 Dysfunctio n of eustachian tube 77010559 H69.93 History of traumatic brain injury 9384161108 9100 Z87.820 Diabetes mellitus 447403 09 E11.9 [id number] ABRAN KENNEDY MD [place] [address] [place] [address] 08/15/2017 08:47:42 08/15/2017 10:56:04 Sudden hearing loss 16463287 H91.22 - improving Asymmetric al sensorineural hearing loss 290486935 H90.5 - L>R, improving Tinnitus of left ear 853 6274368 106 H93.12 Dysfunctio n of eustachian tube 57176382 H69.93 History of traumatic brain injury 6849339557 9100 Z87.820 Diabetes mellitus 901933 09 E11.9 [id number] LEX GARZA [place] [address] [place] [address] 08/15/2017 09:43:32 08/15/2017 14:15:21 Asymmetrical sensorineural hearing loss 102695018 H90.5 [id number] ABRAN KENNEDY MD [place] [address] [place] [address] 09/26/2017 09:22:44 09/26/2017 11:39:25 Sudden hearing loss 73713522 H91.22 - improving Asymmetric al sensorineural hearing loss 797440260 H90.5 - L>R, improving Tinnitus of left ear 518 9081398 106 H93.12 Dysfunctio n of eustachian tube 04594840 H69.93 History of traumatic brain injury 7992602489 9100 Z87.820 Diabetes mellitus 267435 09 E11.9 Pain in throat 180692964 R07.0 tenderness at the left junction of hyoid and laryngeal cartilage Gastroesop hageal reflux disease without esophagitis 285099584 K21.9 [id number] LEX YANCEY [place] ENT [address] [place] [address] 09/26/2017 11:03:14 09/26/2017 11:17:59 Sensorineural hearing loss of bilateral ears 548359401 H90.3 [id number] [place]AR[place] [facility] [address] [facility] [place] [address] 09/26/2017 11:53:31 09/28/2017 08:37:53 [id number] ABRAN KENNEDY MD [place] [address] [place] [address] 11/01/2019 07:51:31 11/01/2019 09:16:58 Pain in throat 542454558 R07.0 tenderness at the left junction of hyoid and laryngeal cartilage likely neuropathi c pain. This is been stable for 3-4 years and examinatio n is unremarkab le [id number] ABRAN KENNEDY MD [facility] [address] [place] [address] 02/22/2022 09:34:44 02/22/2022 14:53:59 Allergic rhinitis 11315722 J30.9 walnut trees, dogs, cats and dust mites Nasal congestion 5859281 0 R09.81 due to beta blockers Benign par oxysmal positional vertigo 352735089 H81.11 Acid reflux 289134748 K2 1.9 Chronic hoarseness 41741 86967 105 R49.0 History of traumatic brain injury 1295530604 9100 Z87.820 [id number] KATY COBURN APRN [place] [address] [place] [address] 02/25/2022 09:42:53 02/25/2022 15:54:31 Nasal congestion 23710951 R09.81 due to beta blockers Allergic rhinitis 189505 04 J30.9 walnut trees, dogs, cats and dust mites Benign par oxysmal positional vertigo 321576283 H81.11 - hx of Chronic hoarseness 49098 07201 105 R49.0 History of traumatic brain injury 7490678807 9100 Z87.820 Posterior rhinorrhea 758 86662 R09.82 Feeling of lump in throat 442423498 F45.8 Gastroesop hageal reflux disease 179411858 K21.9 - hx of [id number] KATY COBURN, PAULA [place] ENT [address] [place] [address] 04/06/2022 10:09:48 04/06/2022 13:08:18 Allergic rhinitis 36525361 J30.9 walnut trees, dogs, cats and dust mites Nasal congestion 4242285 0 R09.81 due to beta blockers Chronic hoarseness 17714 94784 105 R49.0 - Flexible laryngosco py 04/06/22: TVCs have a slight weakness and reduction and in ab/adducti on. There is overcompen sation of the right false cord and arytenoid with phonation. There are 3 areas of very faint, white oval, barely visible lesions of the cords that are possible early nodular developmen t (2 left, 1 right). 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 There is overcompen sation of the right false cord and arytenoid with phonation. There are 3 areas of very faint, white oval, barely visible lesions of the cords that are possible early nodular developmen t (2 left, 1 right). [id number] MD MATTHEW MICHELE III ENT [address] [place] [address] 06/03/2022 14:59:59 06/06/2022 07:46:44 Chronic hoarseness 6461497718 105 R49.0 - Flexible laryngosco py 04/06/22: TVCs have a slight weakness and reduction and in ab/adducti on. There is overcompen sation of the right false cord and arytenoid with phonation. There are 3 areas of very faint, white oval, barely visible lesions of the cords that are possible early nodular developmen t (2 left, 1 right). 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 Nasal septal spur 501722 009 J34.89 Deviated nasal septum 12 4607561 J34.2 Posterior rhinorrhea 758 64052 R09.82 Health Concerns Section Related Observation LastModified by Organization Detai ls LastModified Time None Recorded Concern Status LastModified by Organization Details LastModified Time None Recorded Advance Directives Directive None Recorded Payers Insurance Date Sequence Insurance Name Policy Number Policy [place] Covered Member ID Camp Member ID Guarantor Name 06/06/2022 1 [facility] (MEDICARE REPLACEMENT/A DVANTAGE - PPO) [id number] Dior Hanley [id number] Dior Hanley Notes Date Note Type Note [...] currently on coumadin therapy. ABRAN KENNEDY MD [address] [place] [address], [phone], [facility] 11/01/2019 12:46:41 02/22/2022 text/html Dior visits us [...] take acid reflux medication. ABRAN KENNEDY MD [address] [place] [address], [phone], [facility] 02/22/2022 13:16:13 02/25/2022 text/html Dior Hanley r michealurns today for continued management of BPPV and [...] does take acid reflux medication. KATY COBURN, OVEN BUILDER [address] [place], [address], [facility] 02/25/2022 12:16:41 04/06/2022 text/html Dior Hanley [...] in her right medial throat. KATY COBURN, OVEN BUILDER [address] [place], [address], [facility] 04/06/2022 12:07:01 06/03/2022 text/html Dior returns [...] stones intermittently. HUMERA RICKS III, MD [address] [place], [address], [facility] 06/03/2022 17:06:00 OBGyn Episode No OBEpisode recorded.
--- OUTSIDE RECORDS SUMMARY | 2024-10-07 08:50 | XMS_ITS | Encounter Summary ---
Author Organization [employer] Address [address] [place] [address] Care Team Providers Care Saddle And Harness Maker Name Role Phone Unavailable Primary Care Provider Unavailabl e Encounter Details Date Type Department Care Team (Late st Contact Info) Description 10/13/2020 Transcribed Document [facility] [address] [place] [address] ProviderDaniela MD [address] [place] [place], [place] [address] Social History Tobacco Use Types Packs/Day Years [...] Lira MD - 10/13/2020 3:38 AM CDT [facility] ADDRESS [place], [place] [phone] Name:Hayley Hanley Visit Date:10/12/2020 20:44:00 Emergency Department Care Providers: Physician: LEXUS BELTRAN MD Physician: Our doctors and staff appreciate your choice of [facility] for your emergency medical care. Read these instructions carefully. Please call us if you have any questions about your medical problem. [facility] Emergency Department [phone] [facility] Emergency Department [phone] [facility] Emergency Department [phone] Patient Education Materials Hayley Hanley Crow has [...] in ear, nose, and throat (ENT) problems (truck dispatcher) or a provider who specializes in disorders [...] safe for you. General instructions ??? Take gydf-ffq-rfaqhqj and prescription medicines only as told by [...] provider. Document Revised: 09/05/2018 Document Reviewed: 09/05/2018 [employer] Patient Education ? 2020 [employer] STROKE is an EMERGENCY Every Minute [...] x-ray department to pick them up ? [facility] # [phone] ? [facility] # [phone] 1 [facility] # [phone] ? If you had cultures done and [...] quit. ? National Network of Tobacco Cessation BZhigvugh7-588-IROY-NOW 1 [employer] [employer] 2 [place] [employer] [phone] 3 Viktor/Taqueria Jensen [phone] FINANCIAL INFORMATION ?? [facility] provides financial counseling to anyone who requests our services. ?? Emergency Physicians are independently contracted to provide your care. You will receive a bill for the care provided to you by the Physician and/or the Physician Clinching Machine Operator. This will be a separat e bill [...] recommended Patient Signature / or Patient Human Resource Management Instructor Provider Signature Date Date/Time 10/12/2020 23:38 [facility] [...]
--- OUTSIDE RECORDS SUMMARY | 2024-10-07 08:50 | XMS_ITS | Encounter Summary ---
Author Organization [employer] Address [address] [place] [address] Care Team Providers Care E Business Specialist Name Role Phone Unavailable Primary Care Provider Unavailabl e Encounter Details Date Type Department Care Team (Late st Contact Info) Description 10/13/2020 Transcribed Document [facility] [place] [address] [place] [address] ProviderDaniela MD [address], [place] [address] Social History Tobacco Use Types Packs/Day Years [...] Lira MD - 10/13/2020 3:55 AM CDT [facility] [address] [place], [place] [phone] Name:Hayley Hanley Visit Date:10/12/2020 20:44:00 Emergency Department Care Providers: Physician: LEXUS BELTRAN MD Physician: Our doctors and staff appreciate your choice of [facility] for your emergency medical care. Read these instructions carefully. Please call us if you have any questions about your medical problem. [facility] Emergency Department [phone] [facility] Emergency Department [phone] [facility] Emergency Department [phone] Patient Education Materials Hayley Hanley Crow has [...] in ear, nose, and throat (ENT) problems (dough mixer operator) or a provider who specializes in disorders [...] safe for you. General instructions ??? Take [id number] and prescription medicines only as told by [...] provider. Document Revised: 09/05/2018 Document Reviewed: 09/05/2018 [email or web address] Patient Education ? 2020 [email or web address] [facility] is an EMERGENCY Every Minute [...] x-ray department to pick them up ? [facility] # [phone] ? [facility] # [phone] 1 [facility] # [phone] ? If you had cultures done and [...] quit. ? National Network of Tobacco Cessation [id number]-EYHV-NOW 1 [employer] 2 [employer] Association [phone] 3 Viktor/Taqueria Jensen [phone] FINANCIAL INFORMATION ?? [facility] provides financial counseling to anyone who requests our services. ?? Emergency Physicians are independently contracted to provide your care. You will receive a bill for the care provided to you by the Physician and/or the Physician Posting Machine Operator. This will be a separat [...] to the ED as needed I, Hayley Hnaley, have received a copy of these discharge instructions and acknowledge understanding of these instructions. . I understand that my condition may require more care and will arrange for further treatment as recommended Patient Signature / or Patient Hse Coordinator Provider Signature Date Electronically signed by Cassidy Hood Conversion Assistant Laboratory Director Aniyahner at 07/12/2022 11:38 AM CDT documented in this encounter Plan of Treatment Not on file documented as of this encounter Visit Diagnoses Not on filedocumented in this encounter
--- OUTSIDE RECORDS SUMMARY | 2024-10-07 08:50 | XMS_ITS | Encounter Summary ---
Author Organization [employer] Address [address] [place] [address] Care Team Providers Care Golf Course Assistant Name Role Phone Unavailable Primary Care Provider Unavailabl e Encounter Details Date Type Department Care Team (Late st Contact Info) Description 10/13/2020 Transcribed Document [facility] [place] [address] [place] [address] ProviderDaniela MD [address] [place], [place] [address] Social History Tobacco Use Types Packs/Day Years Used Date Smoking Tobacco: Never Assessed Comments Unknown Sex and Gender Information Value Date Recorded Sex Assigned at Not on file Legal Sex Female 10:09 AM CDT Gender Identity Not on file Sexual Orientation Not on file documented as of this encounter Miscellaneous Notes * Cerner Conversion Note - Daniela ProviderMD - 10/13/2020 3:38 AM CDT [facility] Emergency Department Depart Summary PERSON INFORMATION Name Dior Hanley Age 64 Years 1955 Sex Female Language PCP Marital Status Phone [phone] Visit Id Visit Reason N and/or V Specialty Enc Type Emergency Med Service Referred by Track Group [facility] Discharge Tracking Id [id number] Checkout Checkin 10/12/2020 20:44:00 Acuity 3 - Urgent [facility] Dispo Type Arrival 10/12/2020 20:44:00 Reg Status LOS 000 02:54 Address: [address]LE[address] [place], [place] [id number] POWERFORM PHYSICIAN NOTES VITALS INFORMATION Vital Sign Triage Temp 98.8 Temp Route Pulse Rate 88 Respiratory Rate 18 Blood Pressure 177/ 80 LOCATION INFORMATION Arrival Nurse Unit Room Bed 10/12/2020 20:44:00 [facility] ED Waitroom ([facility]) 10/12/2020 20:47:59 [facility] ED 2 MEDICAL INFORMATION Allergy Info: [...]
--- OUTSIDE RECORDS SUMMARY | 2024-10-07 08:51 | XMS_ITS | Encounter Summary ---
Author Organization [employer] Address [address] [place] [address] Care Team Providers Care Production Ski Repairer Name Role Phone Unavailable Primary Care Provider Unavailabl e Encounter Details Date Type Department Care Team (Late st Contact Info) Description 10/13/2020 Transcribed Document [facility] [place] [facility] [place] [address] ProviderDaniela MD [address] [place], [place] [id number] Social History Tobacco Use Types Packs/Day Years Used Date Smoking Tobacco: Never Assessed Comments Unknown Sex and Gender Information Value Date Recorded Sex Assigned at Not on file Legal Sex Female 10:09 AM CDT Gender Identity Not on file Sexual Orientation Not on file documented as of this encounter Miscellaneous Notes * Cerner Conversion Note - Daniela ProviderMD - 10/13/2020 3:55 AM CDT [facility] Emergency Department Depart Summary PERSON INFORMATION Name Dior Hanley Age 64 Years 1955 Sex Female Language PCP Marital Status Phone [phone] Visit Id Visit Reason N and/or V Specialty Enc Type Emergency Med Service Referred by Track Group [facility] Discharge Tracking Id [id number] Checkout 10/12/2020 23:55:12 Checkin 10/12/2020 20:44:00 Acuity 3 - Urgent [facility] Dispo Type Arrival 10/12/2020 20:44:00 Reg Status LOS 000 03:11 Address: ALEJAN[address]A [address] [place] [address] POWERFORMS PHYSICIAN NOTES VITALS INFORMATION Vital Sign Triage Temp 98.8 Temp Route Pulse Rate 88 Respiratory Rate 18 Blood Pressure 177/ 80 LOCATION INFORMATION Arrival Nurse Unit Room Bed 10/12/2020 20:44:00 [facility] ED Waitroom ([facility]) 10/12/2020 20:47:59 [facility] ED 2 10/12/2020 23:55:12 [facility] ED Checkout ([facility]) MEDICAL INFORMATION Allergy Info: Benadryl; penicillin; [...]
--- OUTSIDE RECORDS SUMMARY | 2024-10-07 08:51 | XMS_ITS | Encounter Summary ---
Author Organization [employer] Address [address] [place] [address] Care Team Providers Care Antitank Assault Gunner Name Role Phone Unavailable Primary Care Provider Unavailabl e Encounter Details Date Type Department Care Team (Late st Contact Info) Description 10/13/2020 Transcribed Document [facility] [place] Medicine [address] [place] [address] ProviderDaniela MD [address] [place], [place] [address] Social History Tobacco Use Types Packs/Day Years [...] Lira MD - 10/13/2020 3:55 AM CDT [facility] ADDRESS [place], [place] [phone] Name:Hayley Hanley Visit Date:10/12/2020 20:44:00 Emergency Department Care Providers: Physician: LEXUS BELTRAN MD Physician: Our doctors and staff appreciate your choice of [facility] for your emergency medical care. Read these instructions carefully. Please call us if you have any questions about your medical problem. [facility] [place] [facility] Emergency Department [phone] [facility] Emergency Department [phone] [facility] Emergency Department [phone] Patient Education Materials Hayley Hanley Crow has [...] in ear, nose, and throat (ENT) problems (buhr dresser) or a provider who specializes in disorders [...] safe for you. General instructions ??? Take [id number]-[id number] and prescription medicines only as told by [...] provider. Document Revised: 09/05/2018 Document Reviewed: 09/05/2018 [employer] Patient Education ? 2020 [employer] [facility] is an EMERGENCY Every Minute [...] x-ray department to pick them up ? [facility] [place] [facility] # [phone] ? [facility] # [phone] 1 [facility] # [phone] ? If you had cultures done and [...] quit. ? National Network of Tobacco Cessation [id number]-[id number] 1 [employer] 2 [employer] [phone] 3 Viktor/Taqueria Jensen [phone] FINANCIAL INFORMATION ?? [facility] provides financial counseling to anyone who requests our services. ?? Emergency Physicians are independently contracted to provide your care. You will receive a bill for the care provided to you by the Physician and/or the Physician Portal Architect. This will be a separat e bill [...] as recommended Patient Signature / or Patient Crab Steamer Provider Signature Date Date/Time 10/12/2020 23:55 [facility] [...]
--- OUTSIDE RECORDS SUMMARY | 2024-10-07 08:51 | XMS_ITS | Clinical Summary ---
Author Organization [employer] Address [address] [place] [address] Care Team Providers Care Transfer Specialist Name Role Phone Unavailable Primary Care [...] Plan of Treatment Not on file Insurance [facility] MEDICARE ADVANTAGE
--- OUTSIDE RECORDS SUMMARY | 2024-10-07 08:51 | XMS_ITS | Referral Summary ---
Author Organization [employer] Address [address] [place] [address] Care Team Providers Care Rail Switch Operator Name Role Phone Unavailable Primary Care [...] Plan of Treatment Not on file Insurance [facility] MEDICARE ADVANTAGE
--- OUTSIDE RECORDS SUMMARY | 2024-10-07 08:51 | XMS_ITS | Patient Health Record ---
Author Organization [facility] Address [address] [place] [address] Care Team Providers Care Ship'S Carpenter Name Role Phone Claritza Sierra Primary Care Provider [phone] Radha Wharton Unavailable [phone] Sierra Guy Unavailable [phone] Migration, Provider Unavailable Unavailable Allergies Allergen (clinical drug ingredient) Drug/Non Drug Allergy documented on EMR Reaction Allergy Type Onset Date Status IV BENADRYL (uncoded) elevated b/p Allergy Active KEFLEX (uncoded) itching Allergy Act chelsea fluticasone / umeclidinium / vilanterol Trelegy Ellipta voiding issues Drug Allergy Active insulin glargine Toujeo SoloStar Unknown Drug Allergy Active Substance with 8-xzjkihx-2-methylgl utaryl-coenzyme A reductase inhibitor mechanism of action (substance) Statins itching Drug Allergy Active Penicillin rash Drug Allergy Active valacyclovir valACYclovir cough/wheeze Drug Allergy Active Results Component Value Reference Range Notes M-Comprehensive Metabolic Pa hui Reviewed date:03/25/2024 03:01:30 [...] Level > 8% Poorly Controlled Diabetic Level M-Ferritin Reviewed date:09/24/2024 10:43:30 AM Interpretation: Performing Lab: Notes/Report: FERNANDO 24.1 11.1-264 ng/ml M-Lipid Panel Reviewed date:2023 08:27:30 AM Interpretation: [...] date:12/25/2023 06:12:19 PM Interpretation: Performing Lab: Notes/Report: Microalbumin (In-House) Reviewed date:03/21/2024 01:23:40 PM Interpretation:Normal Performing Lab: Notes/Report: Normal ALB 30mg CRE 300mg A:C <30mg/g CT Scan : Sinuses Reviewed date:03/29/2024 01:55:15 [...] Performing Lab: Notes/Report: MG 1.9 1.6-2.3 mg/dl M-Lipid Panel Reviewed date:09/24/2024 10:43:30 AM Interpretation: Performing Lab: Notes/Report: Patient Fasting? Y TRIG 152 30-150 mg/dl CHOL 214 140-200 mg/dl DLDL 107.92 100-129 mg/dL VLDL 30 0-40 mg/dL HDL 42 40-60 mg/dl CHLHDL 5.1 1-3.5 MRI : Lumbar Spine w/o contr ast Reviewed date:10/04/2024 02:30:25 PM Interpretation: Performing Lab: Notes/Report: H-FETIBC Reviewed date:09/24/2024 09:51:08 AM Interpretation: Performing Lab: Notes/Report: FE 60 37-170 ug/dL DTIBC 382 265-497 ug/dL IRONSAT 15.29721 15-55 % H-VITB12 Reviewed date:09/24/2024 09:50:35 AM Interpretation: Performing Lab: Notes/Report: VITB12 410 239-931 pg/mL M-Complete Blood Count Auto Diff Reviewed date:09/24/2024 [...] 0 IG% 0.3 NRBC# 0 IG# 0.02 M-Complete Blood Count Auto Diff Reviewed date:2023 [...] 0.1 0-0.2 K/mm3 M-PHA INR Fingerstick Reviewed date:03/13/2024 09:25:58 PM [...] MON, THEN RESUME 8 MG DAILY THEREAFTER. X ray : Spines, Thoracic Spi ne Reviewed date:05/10/2024 02:16:14 PM Interpretation: Performing Lab: Notes/Report: H-TVITD Reviewed date:09/24/2024 09:50:52 AM Interpretation: Performing Lab: Notes/Report: TVITD 110 30-100 ng/mL Deficient <20 ng/mL Insufficient 20-30 ng/mL Sufficient 30-100 ng/mL Potential Toxicity >100 ng/mL DEXA Hip and Spine - Screeni ng Reviewed date:12/25/2023 06:03:09 PM Interpretation: Performing Lab: Notes/Report: Mammogram : Bilateral Reviewed date:12/25/2023 06:00:25 PM Interpretation: Performing Lab: Notes/Report: M-Complete Blood Count Auto Diff Reviewed date:03/25/2024 [...] 0.2 0.0-0.4 K/mm3 BA# 0.0 0-0.2 K/mm3 M-PHA INR Fingerstick Reviewed date:02/13/2024 [...] SECONDARY TO AMI M-PHA INR Fingerstick Reviewed date:10/28/2023 11:18:52 AM [...] review and pick correct strength-formulati on from [employer] options. If intended option is not shown, discontinue and re-order from Quick Search* Active Meclizine HCl 25 MG 1/2 or whole tablet orally at night as needed for vertigo; Duration: 90 days Active Doxycycline Hyclate 100 MG 1 capsule Orally twice a day; Duration: 7 days 09/23/2024 Active Lansoprazole 30 MG 1 cap(s) orally once a day; Duration: 90 days Active Citalopram Hydrobromide 40 MG 1 tab(s) orally once a day; Duration: 90 days Active Metoprolol [...] review and pick correct strength-formulati on from [employer] options. If intended option is not shown, discontinue and re-order from Quick Search* Active ALBUTEROL (EQV-PROAIR HFA) 90 MCG/INH USE 2 INHALATIONS EVERY 6 HOURS prn *Please review for potential replacement for e-prescription and drug interaction check* Active Azelastine HCl 137 MCG/SPRAY 1 spray(s) in each nostril 2 times a day; Duration: 30 days 01/31/2024 Active ONE TOUCH ULTRA LANCETS NA DX: E11.22 TEST TID & NEEDED; Duration: 90 DAYS *Please review for potential replacement for e-prescription and drug interaction check* 01/07/2013 Active ONE TOUCH ULTRA TEST STRIPS BLUE DX: E11.22 TEST TID & NEEDED; Duration: 90 DAYS *Please review for potential replacement for e-prescription and drug interaction check* 07/06/2013 Active Dexcom G7 Dairy Tester DIRECTED CONTINUOUS GLUCOSE MONITORING; Duration: 30 DAY(S) *Please review and pick correct strength-formulati on from [employer] options. If intended option is not shown, discontinue and re-order from Quick Search* 07/08/2022 Active Baclofen 5 MG 1 tablet with food o r milk Orally Once a day at bedtime; Duration: 30 days 09/24/2024 Active Fluticasone Propionate 50 [...] or insomnia; Duration: 90 days 08/14/2021 Active Losartan Potassium 100 [...] TIMES A DAY; Duration: 90 days Active Xyzal Allergy 24HR 5 MG 1 po qd Active Mounjaro 2.5 MG/0.5ML INJECT 1 SYRINGE SUBCUTANEOUSLY ONCE A WEEK; Duration: 84 Active Reclast 5 MG/100ML as directed intravenously once Active Immunizations Vaccine Route Administration Date Status Comme nts Prevnar PCV-13 (Pneumococcal conjugate 13) IM Intramuscular 12/26/2019 Administered Pneumovax 23 IM Intramuscular 12/31/2020 Administered Influenza-Fluzone 3+years (NON-MEDICARE) IM Intramuscular 02/23/2015 Administered Influenza-Fluzone 3+years (NON-MEDICARE) IM Intramuscular 01/14/2016 Administered Influenza-Fluzone 3+years (NON-MEDICARE) IM Intramuscular 02/05/2018 Administered Influenza (Fluzone)--Medicare only IM Intramuscular 01/20/2017 Administered Fluzone High Dose IM Intramuscular 02/04/2020 Administered Fluzone High Dose IM Intramuscular 12/31/2020 Administered Fluzone High Dose IM Intramuscular 01/06/2022 Administered Fluzone High Dose IM Intramuscular 02/09/2023 Administered Fluzone High Dose IM Intramuscular 03/21/2024 Administered FLUZONE 6MO - OLDER IM Intramuscular 01/15/2019 Administer ed Fluvirin--Influenza vaccine 3+ year IM Intramuscular 02/20/2013 Administered Fluvirin--Influenza vaccine 3+ year IM Intramuscular 02/21/2014 Administered Arexvy IM Intramuscular 11/30/2023 Administered Adacel (Tdap) Unknown 04/19/2019 Administered Problems Problem Type SNOMED Code ICD Code Onset Dates Problem Status W/U Status Risk Notes Problem Diabetic renal disease (979772279) Type 2 diabetes mellitus with diabetic chronic kidney disease (E11.22) Active confirmed Problem Hyperglycemia due to type 2 diabetes mellitus (591085507325885) Type 2 diabetes mellitus with hyperglycemia (E11.65) Active confirmed Problem Chronic pain (00533865) Other chronic pain (G89.29) Active confirmed Problem Chronic rhinitis (83979328) Chronic rhinitis (J31.0) Active confirmed Problem Sciatica (27922556) Lumbago with sciatica, left side (M54.42) Active confirmed Problem Chronic kidney disease stage 2 (345100769) Chronic kidney disease, stage 2 (mild) (N18.2) Active confirmed Problem Screening for malignant neoplasm of breast (806600600) Encounter for screening mammogram for malignant neoplasm of breast (Z12.31) Active confirmed Problem Mixed anxiety and depressive disorder (029888136) Depression with anxiety (F41.8) Active confirmed Problem Vitamin D deficiency (57331943) Vitamin D deficiency (E55.9) Active confirmed Problem Essential hypertension (89136507) Essential hypertension (I10) Active confirmed Problem Vitamin B12 deficiency (non anemic) (74271228) B12 deficiency (E53.8) Active confirmed Problem Restless legs syndrome (51065541) Restless leg syndrome (G25.81) Active confirmed Problem Allergic rhinitis (80086211) Chronic allergic rhinitis (J30.9) Active confirmed Problem Long-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 (213072271) 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 (Z79.4) Active confirmed Problem Chronic pain (66399415) Other chronic pain (G89.29) Active confirmed Problem Obese class II (020990053833897) BMI 38.0-38.9,adult (Z68.38) Active confirmed Problem Gastroesophageal reflux disease without esophagitis (853165556) Gastroesophageal reflux disease without esophagitis (K21.9) Active confirmed Problem Postmenopausal state (14260673) Post menopausal syndrome (Z78.0) Active confirmed Problem Obese class II (872865651733684) BMI 37.0-37.9, adult (Z68.37) Active confirmed Problem Obese class II (832431461598099) BMI 36.0-36.9,adult (Z68.36) Active confirmed Problem Arthritis of hip (60937385) Hip arthritis (M19.90) Active confirmed Problem Anxiety (90922659) Situational anxiety (F41.8) Active confirmed Problem Peripheral venous insufficiency (41790948) Venous (peripheral) insufficiency (I87.2) Active confirmed Problem Major depression, single episode (33102663) Depression, reactive (F32.9) Active confirmed Problem Localized, primary osteoarthritis of the pelvic region and thigh (037834400) 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) Active confirmed Problem Ventricular premature complex (disorder) (067357089) PVC (premature ventricular contraction) (I49.3) Active confirmed Problem Moderate persistent asthma (419917720) Asthma, moderate persistent (J45.40) Active confirmed Problem Recurrent deep vein thrombosis (DVT) of both lower extremities (I82.403) Active confirmed Problem Spondylosis without myelopathy (31511187) Arthritis of back (M47.9) Active confirmed Problem Obstructive sleep apnea syndrome (78176045) MARYAM on CPAP (G47.33) Active confirmed Problem Postmenopausal osteoporosis (151419937) Postmenopausal osteoporosis (M81.0) Active confirmed Problem Mixed hyperlipidemia (543581764) Mixed dyslipidemia (E78.2) Active confirmed Problem Moderate major depression, single episode (23757716) Current moderate episode of major depressive disorder without prior episode (F32.1) Active confirmed Problem History of iron deficiency (061092886) History of iron deficiency (Z86.39) Active confirmed Problem 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) Active confirmed Problem Anticoagulant therapy (841048131) Anticoagulated on Coumadin (Z79.01) Active confirmed Problem Arthropathy of right sacroiliac joint (95451965382009759 ) Arthropathy of right sacroiliac joint (M47.818) Active confirmed Problem Low back pain (464102981) Low back pain, unspecified (M54.50) Active confirmed Problem Arthritis of hip (29004938) Arthritis of hip (M16.10) Active confirmed Problem Iron deficiency anemia (59559306) Iron deficiency anemia (D50.9) Problem resolved confirmed Vital Signs Heart Rate 98 /min 09/23/2024 Temperature 98 degrees Fahrenheit 09/23/2024 Oximetry 96 04/05/2024 O2 sat 96% RA. Blood pressure diastolic 60 mm Hg 09/23/2024 Height 64 in 09/23/2024 Blood pressure systolic 116 mm Hg 09/23/2024 Weight 203 lbs 09/23/2024 BMI 34.84 kg/m2 09/23/2024 Encounters Encounter Location Date Provider Diagnosis [facility] [address] [place] [address] 07/13/2024 Provider Migration Type 2 diabetes mellitus with diabetic chronic kidney disease E11.22 [facility] [address] [place] [address] 11/13/2023 Sierra Jerry Acute URI J06.9 [facility] [address] [place] [address] 11/30/2023 Sierra Jerry Chronic kidney disease, stage [...] screening mammogram Z12.31 and Postmenopausal osteoporosis M81.0 [facility] [address] [place], [place] [address] 02/08/2024 Sierra Claritza Type 2 diabetes mellitus with diabetic chronic kidney disease E11.22 ; Subacute sinusitis, unspecified location J01.90 and Nasal congestion R09.81 [facility] [address] [facility] [address] [place], [place] [address] 03/21/2024 Sierra Claritza Type 2 diabetes mellitus with diabetic chronic kidney disease E11.22 ; Right flank pain R10.9 ; Chronic rhinitis J31.0 ; Immunization(s) administered Z23 ; Recurrent deep vein thrombosis (DVT) of both lower extremities I82.403 and Essential hypertension I10 [facility] [address] [facility] [address] [place], [place] [address] 04/05/2024 Sierra Lópezell Acute recurrent frontal sinusitis J01.11 [facility] [address] [facility] [address] [place], [place] [address] 05/02/2024 [facility] Low back pain, unspecified M54.50 ; Other chronic pain G89.29 and Type 2 diabetes mellitus with diabetic chronic kidney disease E11.22 [facility] [address] [facility] [address] [place], [place] [address] 09/23/2024 [facility] Type 2 diabetes mellitus with diabetic chronic [...] side M54.42 and Other chronic pain G89.29 [facility] [address] [facility] [address] [place] [address] 11/08/2023 [facility] [address] [facility] [address] [place] [address] 11/20/2023 [facility] [address] [facility] [address] [place] [address] 12/02/2023 Sierra Claritza [facility] [address] [place] [address] 12/04/2023 Sierra Claritza [facility] [address] [place] [address] 2023 Sierra Claritza Elevated liver enzym es R74.8 [facility] [address] [place] [address] 01/22/2024 Sierra Claritza Type 2 diabetes mellitus with hyperglycemia E11.65 [facility] [address] [place] [address] 01/22/2024 Sierra Claritza [facility] [address] [place] [address] 01/23/2024 Sierra Claritza Type 2 diabetes mellitus with hyperglycemia E11.65 [facility] [address] [place] [address] 01/31/2024 Sierra Claritza [facility] [address] [place] [address], [place] [address] 03/11/2024 Sierra Claritza Type 2 diabetes mellitus with diabetic chronic kidney disease E11.22 [facility] [address] [place] [address] 03/25/2024 Sierra Claritza Type 2 diabetes mellitus with diabetic chronic kidney disease E11.22 [facility] [address] [place] [address] 05/02/2024 Sierra Claritza [facility] [address] [place] [address] 05/06/2024 Sierra Claritza Arthritis of back M47.9 [facility] [address] [place] [address] 05/08/2024 Sierra Claritza Mid back pain M54.9 [facility] [address] [place] [address] 05/23/2024 Sierra Claritza Type 2 diabetes mellitus with diabetic chronic kidney disease E11.22 [facility] [address] [place] [address] 06/27/2024 Sierra Jerry [facility] [address] [place] [address] 07/15/2024 Sierra Jerry [facility] [address] [place] [address] 09/23/2024 Sierra Jerry [facility] [address] [place] [address] 09/24/2024 Sierra Jerry [facility] [address] [place] [address] 09/24/2024 Sierra Jerry Type 2 diabetes mellitus with diabetic chronic kidney disease E11.22 [facility] [address] [place] [address] 09/25/2024 Sierra Jerry Lumbago with sciatic a, left side M54.42 Assessments Encounter Date Diagnosis [...] and lowering basal insulin to avoid hypoglycemia 03/21/2024 Right flank pain (ICD-10 - R10.9) [...] (ICD-10 - I82.403) following with coumadin clinic 09/24/2024 Type 2 diabetes mellitus with diabetic chronic kidney disease (ICD-10 - E11.22) 09/25/2024 Lumbago with sciatica, left side (ICD-10 - M54.42) 09/23/2024 Essential hypertension (ICD-10 - I10) well [...] with sciatica, left side (ICD-10 - M54.42) 11/30/2023 Depression, reactive (ICD-10 - F32.9) 09/23/2024 Other chronic pain (ICD-10 - G89.29) 11/30/2023 Encounter for immunization (ICD-10 - Z23) [...] Dietary Consult 10/04/2013 H-CBC with AUTO DIFF 06/27/2014 H-CBC with AUTO DIFF 03/20/2017 H-CBC with AUTO DIFF 08/31/2015 H-CBC with AUTO DIFF 11/26/2014 H-CBC with AUTO DIFF 07/24/2017 H-CBC with AUTO DIFF 06/20/2014 H-VITAMIN B12 07/24/2017 H-VITAMIN B6 (PYRIDOXAL PHOSPHAT 015 H-FERRITIN 07/24/2017 H-FERRITIN 11/26/2014 H-CMP 03/20/2017 H-CMP 07/24/2017 H-CMP 08/31/2015 H-CMP 11/26/2014 H-CMP 06/20/2014 H-CMP 11/30/2015 H-MAGNESIUM 06/20/2014 H-LIPID PANEL 11/26/2014 H-LIPID PANEL 08/31/2015 H-LIPID PANEL 07/24/2017 H-LIPID PANEL 03/20/2017 H-LIPID PANEL 02/17/2014 H-HGBA1C 08/31/2015 H-HGBA1C 07/24/2017 H-HGBA1C 11/26/2014 H-HGBA1C 11/30/2015 H-TSH 06/20/2014 H-TSH 07/24/2017 H-VIT D, 25-HYDROXY 08/31/2015 H-VIT D, 25-HYDROXY 07/24/2017 H-MICROALBUMIN URINE 08/31/2015 H-RADHA PROFILE 06/20/2014 H-ANTI PHOSPHOLIPID ANTIBODY 02/15/2012 Pulmonary Function Test- Complete 2020 H-VITAMIN C 06/20/2014 M-Complete Blood Count Auto Diff 019 M-Complete Blood Count Auto Diff 020 M-Complete Blood Count Auto Diff 024 M-D-Dimer 11/30/2020 M-Comprehensive Metabolic Panel 12/28/19 19 M-Comprehensive Metabolic Panel 11/30/19 24 M-Comprehensive Metabolic Panel 12/26/19 20 M-Hemoglobin A1C 11/30/2023 M-Hemoglobin A1C 12/27/2018 M-Hemoglobin A1C 12/26/2019 M-Lipid Panel 12/26/2019 M-Lipid Panel 12/27/2018 M-Lipid Panel 11/30/2023 M-Vitamin B12 07/09/2020 M-Vitamin B12 11/30/2023 M-Vitamin B12 09/23/2024 M-Vitamin B12 12/27/2018 M-Vitamin B12 02/09/2023 M-Vitamin D 25 Hydroxy 02/09/2023 M-Vitamin D 25 Hydroxy 12/27/2018 M-Vitamin D 25 Hydroxy 11/30/2023 M-Vitamin D 25 Hydroxy 07/09/2020 M-Vitamin D 25 Hydroxy 09/23/2024 M-Iron and TIBC 09/23/2024 M-Microalb/Creat Ratio, Rand Ur 024 M-Microalb/Creat Ratio, Rand Ur 019 M-Microalb/Creat Ratio, Rand Ur 023 M-Microalb/Creat Ratio, [facility] Ur 020 M-Microalb/Creat Ratio, Randm Ur 019 M-Microalb/Creat Ratio, Rand Ur 018 Physical Therapy Eval and Treat 07/11/19 24 Physical Therapy Eval and Treat 05/06/19 25 Future Test Test Name Order Date H-BMP 07/09/2012 Next Appt Details Provider Name:Sierra Magallanes , 11/07/2024 09:00:00 AM, [address], [place], [address], Insurance Providers Payer Name Payer Address Payer Phone Subscriber Number Group Number Insured Name Patient Relationship to Insured Coverage Start Date Coverage End Date [employer] [address] [address] [place] [address] [id number] Dior Hanley Self - patient is the [...]
--- OUTSIDE RECORDS SUMMARY | 2024-10-07 08:51 | XMS_ITS | Encounter Summary ---
Author Organization [employer] [facility] Address [address] [place] [address] Care Team Providers Care Bolt Header Name Role Phone Unavailable Primary Care Provider Unavailabl e Encounter Details Date Type Department Care Team (Late st Contact Info) Description 06/06/2022 Outside Orders [facility] Outpatient Physical Therapy [address] [facility] [address] [place] [phone] Oliverio Ricks MD [address] [place] [address] [place] [address] Hoarseness (Primary Dx) Social History Tobacco Use [...]
--- OUTSIDE RECORDS SUMMARY | 2024-10-07 08:52 | XMS_ITS | Encounter Summary ---
Author Organization [employer] [facility] Address [address] [place] [address] Care Team Providers Care Creative Writing Professor Name Role Phone Unavailable Primary Care Provider Zachary lau Encounter Details Date Type Department Care Team (Late st Contact Info) Description 10/13/2020 Transcribed Document [facility] [address] ProviderDaniela MD [address] [place] [phone] Social History Tobacco Use Types Packs/Day Years [...] EDT Performed On: 10/12/2020 20:49 EDT by Suyz Montoya Irrigation System Installer Assessment Triage Date/Time : 10/12/2020 20:49 EDT Suzy Montoya Rn - 10/12/2020 20:49 EDT DCP GENERIC CODE Tracking Acuity : 3 - Urgent [facility] Tracking Group : [place] Suzy Montoya Rn - 10/12/2020 20:49 EDT [...] Preferred Communication Mode : Verbal Languages : [place] Child/Parent Domestic Concerns : None Threats of Suicide : No Suzy Montoya Rn - 10/12/2020 20:49 EDT Height and Weight Height Source : Stated Height Entry Format : [place] Height, Inches : 65 Inch(Converted to: 5 ft 5 Inch, 165.10 cm) Clinical Height : 165.1 cm Weight Source : Stated Type of Weight Measurement Est : [place] Weight, est lb : 220 lb Estimated Clinical Dosing Weight : 100 kg [place] Body Weight : 57 kg Body Surface [...]
[2024-10-07 09:50] LABS: PHA INR Fingerstick 2.8 (0.9-1.1)
[2024-10-07 11:58] LABS: Basophils # 0.1 K/mm3 (0-0.2); Basophils % 0.8 % (0.1-2.0); Eosinophils # 0.4 Kmm3 (0.0-0.4); Eosinophils % 4.5 % (0.1-12.0); Hematocrit 40.5 % (37.0-47.0); Hemoglobin 12.4 g/dL (12.2-16.2); Immature Granulocytes # 0.02 10^3uL; Immature Granulocytes % 0.3 %; Lymphocytes # 1.7 K/mm3 (0.7-4.5); Lymphocytes % 22.3 % (10-50); Mean Corpuscular HGB Conc 30.6 g/dL (31.8-35.4); Mean Corpuscular Hemoglobin 25.7 pg (27.0-31.2); Mean Platelet Volume 11.5 fl (7.4-10.4); Monocytes # 0.6 K/mm3 (0.1-1.0); Monocytes % 7.9 % (1.7-9.3); Neutrophils % 64.2 % (37.0-80.0); Nucleated Red Blood Cells # 0 10^3/uL; Nucleated Red Blood Cells % 0 %; Platelet Count 296 K/mm3 (142-424); Red Blood Count 4.82 M/mm3 (4.20-5.40); Red Cell Distribution Width 14.4 % (11.5-17.5); Red Cell Distribution Width-SD 44.1 fL; White Blood Count 7.8 K/mm3 (4.8-10.8)
[2024-10-07 12:09] LABS: Chloride 99 mmol/L (98-107); Potassium 5.6 mmoL/L (3.5-5.1); Sodium 132 mmol/L (136-145)
[2024-10-07 12:12] LABS: Anion Gap 16.6 mEq/L (5-15); Blood Urea Nitrogen 14 mg/dl (7-17); Calcium 9.2 mg/dl (8.4-10.2); Carbon Dioxide 22 mmol/L (22.0-30.0); Estimated Glomerular Filt Rate 49 ml/min (>60); GFR (African American) 60 ML/MIN (>60); Glucose 206 mg/dl (74-100)
[2024-10-07 12:13] LABS: Magnesium 2.4 mg/dl (1.6-2.3)
== END 2024-10-07 10:01 | disposition still patient (30) ==
LOC: ACC 08:48
PROVIDERS: Nurse Practitioner Family; PCP Internal Medicine Adolescent Medicine; Visit Provider Internal Medicine Adolescent Medicine
DX: E78.5 Hyperlipidemia, unspecified (principal); I10 Essential (primary) hypertension; Z86.39 Personal history of other endocrine, nutritional and metabolic disease; I82.509 Chronic embolism and thrombosis of unspecified deep veins of unspecified lower extremity
CPT/HCPCS: 36415; 80048; 83735; 85025; 85610; 99211; G0463

== ENCOUNTER 2024-10-23 09:55 | Outpatient (POV) | payer MEDICARE, SELFPAY ==
--- OUTSIDE RECORDS SUMMARY | 2024-09-23 04:45 | XMS_ITS ---
Author Organization [facility] Address [address] [facility] [address] [facility] [address] [place] [address] Care Team Providers Care Can Filling Room Sweeper Name Role Phone Sierra Jerry Primary Care Provider Allergies Allergen (clinical drug ingredient) Drug/Non Drug Allergy documented on EMR Reaction Allergy Type Onset Date Status IV BENADRYL (uncoded) elevated b/p Allergy Active KEFLEX (uncoded) itching Allergy Act chelsea fluticasone / umeclidinium / vilanterol Trelegy Ellipta voiding issues Drug Allergy Active insulin glargine Toujeo SoloStar Unknown Drug Allergy Active Substance with 9-owbbuch-1-methylgl utaryl-coenzyme A reductase inhibitor mechanism of action [...] sciatic a, left side (M54.42) Referral Organization [facility] Referring Provider First Name Sierra Referring Provider Last Name Claritza Referring Provider Speciality [facility] Referred Organization [facility] Referred Address [address], [place], [place],[address], Referred Provider Specialty Diagnostic R adiology General Notes Isabela Figueroa 2024 10:29:08 AM >sent to [facility] to schedule Referral Priority Routine REASON FOR VISIT med ck, productive cough-thick yellowish-brown mucus, back pain-feels a knot on her lower spine-hurts to walk, RLS and other issues Medications Medication SIG (Take, Route, Frequency, Duration) Notes Start Date End Date Status Dexcom G7 Sensor 1 SENSOR DIRECTED FOR CONTINUOUS GLUCOSE MONITORING; Duration: 90 DAYS *Please review and pick correct strength-formulati on from ePropertyDataan options. If intended option is not shown, [...] review and pick correct strength-formulati on from Paga options. If intended option is not shown, [...] drug interaction check* 07/06/2013 Active Dexcom G7 Hide Salter DIRECTED CONTINUOUS GLUCOSE MONITORING; Duration: 30 DAY(S) *Please review and pick correct strength-formulati on from Paga options. If intended option is not shown, [...] Risk Notes Problem History of iron deficiency (840207917) History of iron deficiency (Z86.39) Active confirmed Problem Sciatica (26727818) Lumbago with sciatica, left side (M54.42) Active confirmed Vital Signs Temperature 98 degrees Fahrenheit 09/23/2024 Heart Rate 98 /min 09/23/2024 Blood pressure systolic 116 mm Hg 09/24/19 25 Blood pressure diastolic 60 mm Hg 025 Height 64 in 09/23/2024 Weight 203 lbs 09/23/2024 BMI 34.84 kg/m2 09/23/2024 Encounters Encounter Location Date Provider Diagnosis [facility] [address] [facility] [address] [place] [address] 09/23/2024 Sierra Jerry Type 2 diabetes mellitus [...] pine, no contrast, [address] [facility], [place], [address], Next Appt Details Follow Up: 4 Months, Reason: Provider Name:Sierra Magallanes ce, 10/31/2024 09:00:00 AM, [address], [address], [place], [address], Progress Notes * Elenita CONTRERASOB: (68 yo F)Acc No.[id number]:09/23/2024 Progress Notes Patient: Dior CUNNINGHAM Provider: PARVEZ Brock :1955 A ge:68 Y S ex:Female Date:09/23/2024 Address:[address], [place], [id number] Subjective: * Chief Complaints: * 1 . [...] Travel outside [place]: no. 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 * Medications: T aking Reclast 5 [...] nostril twice daily , Taking Dexcom G7 Hide Salter DIRECTED CONTINUOUS GLUCOSE MONITORING , Notes to [...] *Please review and pick correct strength-formulation from Paga options. If intended option is not shown, [...] *Please review and pick correct strength-formulation from Paga options. If intended option is not shown, [...] 09/23/2024 Generated for Mirta lynne/Evaristo/eTransmitting on: 0 10/23/2024 10:04 AM EDT History and Physical Notes * [...]
--- OUTSIDE RECORDS SUMMARY | 2024-09-25 06:27 | XMS_ITS ---
Author Organization [facility] [place] Address [address] [facility] [address] [place] [address] Care Team Providers Care Dehydrogenation Supervisor Name Role Phone Sierra Jerry Primary Care Provider Results Component Value Reference Range Notes MRI : Lumbar Spine w/o contr ast Reviewed date:10/04/2024 02:30:25 PM Interpretation: Performing Lab: Notes/Report: REASON FOR VISIT mri order Encounters Encounter Location Date Provider Diagnosis [facility] [place] [address] [place] [address] 09/25/2024 Sierra Jerry Lumbago with sciatica, left side M54.42 Assessments Encounter Date Diagnosis (ICD Code) Assessment Notes Treatment Notes Treatment Clinical Notes Section Notes 09/25/2024 Lumbago with sciatica, left side (ICD-10 - M54.42) Plan Of Treatment Next Appt Details Provider Name:Sierra Magallanes ce, 10/31/2024 09:00:00 AM, [address], [address], [place], [place], [address], Progress Notes * Elenita CONTRERASOB: (68 yo F)Acc No.[id number]:09/25/2024 Patient: Farzana STEVENSONEmeliaDior :1955 A ge:68 Y S ex:Female Address:[address] [place], [place] [address] Subjective: * Chief Complaints: * M ri order * Medical History: * Surgical History: * Hospitalization/Major Diagno stic Procedure: * Medications: Objective: * Vitals: * Physical Examination: Assessment: * Assessment: 1. L umbago with sciatica, left side - M54.42 Plan: * Treatment: * * Procedure Codes: * true * Date: Generated for Mirta lynne/Evaristo/Ingasmfrancesca on: 0 10/23/2024 10:04 AM EDT
--- OUTSIDE RECORDS SUMMARY | 2024-10-07 07:00 | XMS_ITS ---
Author Organization [facility] Address [address] [facility] [address] [facility] [address] [place] [address] Care Team Providers Care Process Pumper Name Role Phone Sierra Jerry Primary Care Provider [phone] Allergies Allergen (clinical drug ingredient) Drug/Non Drug Allergy documented on EMR Reaction Allergy Type Onset Date Status IV BENADRYL (uncoded) elevated b/p Allergy Active KEFLEX (uncoded) itching Allergy Act chelsea fluticasone / umeclidinium / vilanterol Trelegy Ellipta voiding issues Drug Allergy Active insulin glargine Toujeo SoloStar Unknown Drug Allergy Active Substance with 9-jjjelkm-0-methylgl utaryl-coenzyme A reductase inhibitor mechanism of action [...] review and pick correct strength-formulati on from [employer].uk options. If intended option is not shown, [...] and drug interaction check* Active Dexcom G7 Bench Molder DIRECTED CONTINUOUS GLUCOSE MONITORING; Duration: 30 DAY(S) *Please review and pick correct strength-formulati on from [employer]Courier.co.uk options. If intended option is not shown, [...] SUBCUTANEOUSLY ONCE A WEEK; Duration: 84 Active [employer] G7 Sensor 1 SENSOR DIRECTED FOR CONTINUOUS GLUCOSE MONITORING; Duration: 90 DAYS *Please review and pick correct strength-formulati on from [employer]Courier.co.uk options. If intended option is not shown, discontinue and re-order from Quick Search* Active Vital Signs Temperature 97.5 degrees Fahrenheit 10/08/19 25 Heart Rate 76 /min 10/07/2024 Blood pressure systolic 112 mm Hg 10/08/19 25 Blood pressure diastolic 52 mm Hg 025 Height 64 in 10/07/2024 Weight 201.2 lbs 10/07/2024 BMI 34.53 kg/m2 10/07/2024 Encounters Encounter Location Date Provider Diagnosis [facility] [place] [address] [facility] [address] [place] [address] 10/07/2024 Sierra Jerry Type 2 diabetes mellitus [...] Appt Details Follow Up: pending results, Reason: Provider Name:Sierra Magallanes ce, 10/31/2024 09:00:00 AM, [address], [address], [place], [address], Progress Notes * Elenita CONTRERASOB: 5 (68 yo F)Acc No.[id number]:10/07/2024 Progress Notes Patient: Dior CUNNINGHAM Provider: PARVEZ Brock :1955 A ge:68 Y S ex:Female Date:10/07/2024 Address:[facility] [address] [place] [facility] [id number] Subjective: * Chief Complaints: * 1 . [...] nostril twice daily , Taking Dexcom G7 Bench Molder DIRECTED CONTINUOUS GLUCOSE MONITORING , Notes to [...] *Please review and pick correct strength-formulation from [employer]uk options. If intended option is not shown, [...] *Please review and pick correct strength-formulation from [employer]uk options. If intended option is not shown, [...] 74-100 - mg/dl * Renita Olivera 10/10/19 12:00:03 PM EDT > pt informed, [...] 0.1 0-0.2 - K/mm3 * Renita Olivera 10/10/19 12:00:03 PM EDT > pt informed, christi Logans lab was reviewed by Renita Olivera on [...] 74-100 - mg/dl * Renita Olivera 10/10/19 12:00:03 PM EDT > pt informed, christi Johnny lab was reviewed by Renita Olivera on 10/09/2024 at 12:00 PM EDT ?LAB: M-Magnesium (Collection Date & Time - 10/07/2024 10:59 AM)* Value Reference Range M agnesium 2.4 H 1.6-2.3 - mg/dl * Renita Olivera 10/10/19 12:00:03 PM EDT > pt informed, christi Logans lab was reviewed by Renita Olivera on 10/09/2024 at 12:00 PM EDT * Procedure Codes: 9 3000 EKG WITH INTERP. * Follow Up: p ending results * * Sign off status: Completed true * Provider: PARVEZ Brock Date: 0 10/07/2024 Generated for Mirta lynne/Evaristo/eTransmitting on: 0 10/23/2024 10:03 AM EDT History and Physical Notes * [...]
--- OUTSIDE RECORDS SUMMARY | 2024-10-23 10:04 | XMS_ITS | Patient Health Record ---
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 Role Phone Claritza Sierra Primary Care Provider Radha Wharton Unavailable [phone] Sierra Guy Unavailable [phone] Migration, Provider Unavailable Unavailable Allergies Allergen (clinical drug ingredient) Drug/Non Drug Allergy documented on EMR Reaction Allergy Type Onset Date Status IV BENADRYL (uncoded) elevated b/p Allergy Active KEFLEX (uncoded) itching Allergy Act chelsea fluticasone / umeclidinium / vilanterol Trelegy Ellipta voiding issues Drug Allergy Active insulin glargine Toujeo SoloStar Unknown Drug Allergy Active Substance with 3-dfeqbay-4-methylgl utaryl-coenzyme A reductase inhibitor mechanism of action [...] 0.2 0.0-0.4 K/mm3 BA# 0.0 0-0.2 K/mm3 M-Complete Blood Count Auto Diff Reviewed date:10/09/2024 [...] IG# 0.02 M-Comprehensive Metabolic Pa hui Reviewed date:03/25/2024 03:01:30 [...] AGRATIO 1.5 1.1-1.8 ALP 52 38-126 U/L M-Basic Metabolic Panel Reviewed date:10/09/2024 12:00:19 PM Interpretation: Performing Lab: Notes/Report: NA 132 136-145 mmol/L K 5.6 3.5-5.1 mmoL/L CL 99 98-107 mmol/L CO2 22 22.0-30.0 mmol/L GAP 16.6 5-15 mEq/L BUN 14 7-17 mg/dl CREATT 1.10 0.52-1.04 mg/dl GFRAA 60 >60 ML/MIN EGFR 49 >60 ml/min GLU 206 74-100 mg/dl CA 9.2 8.4-10.2 mg/dl M-Hemoglobin A1C Reviewed date:03/25/2024 03:01:31 PM Interpretation: Performing Lab: Notes/Report: HGBA1C 7.4 4.0-6.0 % < 6% Non-Diabetic Level < 7% Controlled Diabetic Level > 8% Poorly Controlled Diabetic Level M-Hemoglobin A1C Reviewed date:09/24/2024 10:43:29 AM Interpretation: Performing Lab: Notes/Report: HGBA1C 7.3 4.0-6.0 % < 6% Non-Diabetic Level < 7% Controlled Diabetic Level > 8% Poorly Controlled Diabetic Level Microalbumin (In-House) Reviewed date:03/21/2024 01:23:40 PM Interpretation:Normal Performing Lab: Notes/Report: Normal ALB 30mg CRE 300mg A:C <30mg/g M-Magnesium Reviewed date:09/24/2024 10:43:29 AM Interpretation: Performing Lab: Notes/Report: MG 1.9 1.6-2.3 mg/dl M-Magnesium Reviewed date:10/09/2024 12:00:19 PM Interpretation: Performing Lab: Notes/Report: MG 2.4 1.6-2.3 mg/dl M-Lipid Panel Reviewed date:09/24/2024 10:43:30 [...] recommended. MICROALB 76.300 0-16.7 mg/L MALBCREAT 56.1 CT Scan : Sinuses Reviewed date:03/29/2024 01:55:15 PM Interpretation: Performing Lab: Notes/Report: Urinalysis Reviewed date:03/21/2024 01:23:33 PM Interpretation: Performing Lab: Notes/Report: Color/Clarity yellow clear Leuk neg Nitrite neg Urobili 0.2 Protein neg pH 6.0 Blood neg Sp. Gr. 1.015 Ketone neg Bili neg Glucose neg H-VITB12 Reviewed date:12/15/2023 05:36:45 PM Interpretation: Performing Lab: Notes/Report: VITB12 583 239-931 pg/mL M-PHA INR Fingerstick Reviewed date:06/06/2024 12:35:57 PM [...] SECONDARY TO AMI M-PHA INR Fingerstick Reviewed date:10/07/2024 09:53:20 AM Interpretation: Performing Lab: Notes/Report: POCINRFS 2.8 0.9-1.1 THERAPY FOR DVT, PE, ATRIAL FIB; 2.0 - 3.0 PROPHYLAXIS FOR VTE THERAPY FOR MECHANICAL HEART 2.5 - 3.5 VALVE; PREVENTION OF SYSTEMIC EMBOLISM SECONDARY TO AMI Results sent to: Colby Andrade MD Pharmacist recommendation for Warfarin therapy is: PATIENT INR 2.8 TODAY VIA FINGERSTICK. RECOMMENDED PATIENT CONTINUE WITH WARFARIN 8 MG DAILY AT THIS TIME. PATIENT RECENTLY FINISHED A ROUND OF DOXYCYCLINE AND HELD DOSE YESTERDAY. FOR DETAILED INFORMATION-PLEASE REVIEW PROGRESS NOTE IN THE ASSESSMENTS AND ANTICOAGULATION CLINIC SECTION ANTICOAGULATION CLINIC IN PCI/CLINICAL REVIEW INDICATION INR RANGE X ray : Spines, Lumbosacral Reviewed date:05/06/2024 03:25:25 PM Interpretation: Performing Lab: Notes/Report: MRI : Lumbar Spine w/o contr ast Reviewed date:10/04/2024 02:30:25 PM Interpretation: Performing Lab: Notes/Report: M-INR/PT Reviewed date:2023 08:27:15 AM Interpretation: Performing Lab: Notes/Report: PT 20.9 10.1-12.5 seconds INR 2.00 0.9-1.1 INDICATION INR RANGE Therapy for DVT, PE, Atrial Fib, 2.0-3.0 Prophylaxis for VTE. Therapy for Mechanical Heart Valve, 2.5-3.5 Prevention of Sytemic Emolism secondary to AMI. M-Complete Blood Count Auto Diff Reviewed date:2023 [...] 0.2 0.0-0.4 K/mm3 BA# 0.1 0-0.2 K/mm3 M-Comprehensive Metabolic Pa hui Reviewed date:09/24/2024 10:43:29 [...] AGRATIO 1.4 1.1-1.8 ALP 65 38-126 U/L M-Comprehensive Metabolic Pa hui Reviewed [...] AGRATIO 1.1 1.1-1.8 ALP 54 38-126 U/L M-Complete Blood Count Auto Diff Reviewed date:09/24/2024 [...] 0 IG% 0.3 NRBC# 0 IG# 0.02 X ray : Spines, Thoracic Spi ne Reviewed date:05/10/2024 02:16:14 PM Interpretation: Performing Lab: Notes/Report: M-Ferritin Reviewed date:09/24/2024 10:43:30 AM Interpretation: Performing Lab: Notes/Report: FERNANDO 24.1 11.1-264 ng/ml M-Lipid Panel Reviewed date:2023 08:27:30 AM Interpretation: Performing Lab: Notes/Report: Patient Fasting? Y TRIG 157 30-150 mg/dl CHOL 227 140-200 mg/dl DLDL 141.75 100-129 mg/dL VLDL 31 0-40 mg/dL HDL 41 40-60 mg/dl CHLHDL 5.5 1-3.5 H-TVITD Reviewed date:09/24/2024 09:50:52 AM Interpretation: Performing Lab: Notes/Report: TVITD 110 30-100 ng/mL Deficient <20 ng/mL Insufficient 20-30 ng/mL Sufficient 30-100 ng/mL Potential Toxicity >100 ng/mL M-Hemoglobin A1C Reviewed date:2023 08:27:44 AM Interpretation: Performing Lab: Notes/Report: HGBA1C 7.5 4.0-6.0 % < 6% Non-Diabetic Level < 7% Controlled Diabetic Level > 8% Poorly Controlled Diabetic Level Ultrasound : Liver Reviewed date:12/25/2023 06:12:19 PM Interpretation: Performing Lab: Notes/Report: M-PHA INR Fingerstick Reviewed date:07/18/2024 10:05:34 AM [...] PREVENTION OF SYSTEMIC EMBOLISM SECONDARY TO AMI H-FETIBC Reviewed date:09/24/2024 09:51:08 AM Interpretation: Performing Lab: Notes/Report: FE 60 37-170 ug/dL DTIBC 382 265-497 ug/dL IRONSAT 15.13382 15-55 % H-VITB12 Reviewed date:09/24/2024 09:50:35 AM Interpretation: Performing Lab: Notes/Report: VITB12 410 239-931 pg/mL DEXA Hip and Spine - Screeni ng Reviewed date:12/25/2023 06:03:09 PM Interpretation: Performing Lab: Notes/Report: Mammogram : Bilateral Reviewed date:12/25/2023 06:00:25 PM Interpretation: Performing Lab: Notes/Report: M-PHA INR Fingerstick Reviewed date:02/13/2024 03:50:43 PM [...] Duration) Notes Start Date End Date Status Lantus SoloStar 100 UNIT/ML INJECT 76 UNITS UNDER THE SKIN ONCE DAILY Active Valium 5 MG 1 tab(s) orally once a day as needed for anxiety or insomnia; Duration: 90 days 08/14/2021 Active Ipratropium-Albuter ol 0.5-2.5 (3) MG/3ML 3 mL by nebulizer TID and q6 hours prn 03/22/2018 Active Baclofen 5 MG 1 tablet with [...] for e-prescription and drug interaction check* Active Xyzal Allergy 24HR 5 MG 1 po qd Active Warfarin Sodium 2 MG 4 tablets orally once a day; Duration: 90 days Active Reclast 5 MG/100ML as directed intravenously once Active PEN NDL KELVIN 32G X 4MM PEN NEEDLES SUBCUTANEOUSLY THREE TIMES A DAY; Duration: 90 days Active PROBIOTIC FORMULA (BACILLUS COAGULANS) - 1 CAP(S) ORALLY ONCE A DAY *Please review for potential replacement for e-prescription and drug interaction check* Active Losartan Potassium 100 MG 1/2 tab orally once a day Active ONE TOUCH MINI GLUCOMETER DIRECTED *Please review for potential replacement for e-prescription and drug interaction check* 03/05/2014 Active Meclizine HCl 25 MG 1/2 or whole tablet orally at night as needed for vertigo; Duration: 90 days Active Lansoprazole 30 MG 1 cap(s) orally once a day; Duration: 90 days Active Mounjaro 2.5 MG/0.5ML INJECT 1 SYRINGE SUBCUTANEOUSLY ONCE A WEEK; Duration: 84 Active Dexcom G7 Sensor 1 SENSOR DIRECTED FOR CONTINUOUS GLUCOSE MONITORING; Duration: 90 DAYS *Please review and pick correct strength-formulati on from [employer] options. If intended option is not shown, discontinue and re-order from Quick Search* Active Metoprolol Succinate ER 50 MG 1 [...] review and pick correct strength-formulati on from [employer] options. If intended option is not shown, discontinue and re-order from Quick Search* Active Dexcom G7 Sieve Grader Tender DIRECTED CONTINUOUS GLUCOSE MONITORING; Duration: 30 DAY(S) *Please review and pick correct strength-formulati on from [employer] options. If intended option is not shown, discontinue and re-order from Quick Search* 07/08/2022 Active ONE TOUCH ULTRA LANCETS NA DX: E11.22 TEST TID & NEEDED; Duration: 90 DAYS *Please review for potential replacement for e-prescription and drug interaction check* 01/07/2013 Active ONE TOUCH ULTRA TEST STRIPS BLUE DX: E11.22 TEST TID & NEEDED; Duration: 90 DAYS *Please review for potential replacement for e-prescription and drug interaction check* 07/06/2013 Active Immunizations Vaccine Route Administration Date Status Comme nts Pneumovax 23 IM Intramuscular 12/31/2020 Administered Fluzone High Dose IM Intramuscular 12/31/2020 Administered Adacel (Tdap) Unknown 04/19/2019 Administered FLUZONE 6MO - OLDER IM Intramuscular 01/15/2019 Administer ed Influenza-Fluzone 3+years (NON-MEDICARE) IM Intramuscular 02/05/2018 Administered Fluvirin--Influenza vaccine 3+ year IM Intramuscular 02/21/2014 Administered Influenza-Fluzone 3+years (NON-MEDICARE) IM Intramuscular 01/14/2016 Administered Influenza-Fluzone 3+years (NON-MEDICARE) IM Intramuscular 02/23/2015 Administered Prevnar PCV-13 (Pneumococcal conjugate 13) IM Intramuscular 12/26/2019 Administered Influenza (Fluzone)--Medicare only IM Intramuscular 01/20/2017 Administered Fluzone High Dose IM Intramuscular 01/06/2022 Administered Fluzone High Dose IM Intramuscular 02/09/2023 Administered Fluzone High Dose IM Intramuscular 03/21/2024 Administered Arexvy IM Intramuscular 11/30/2023 Administered Fluzone High Dose IM Intramuscular 02/04/2020 Administered Fluvirin--Influenza vaccine 3+ year IM Intramuscular 02/20/2013 Administered Problems Problem Type SNOMED Code ICD Code Onset Dates Problem Status W/U Status Risk Notes Problem Diabetic renal disease (665706536) Type 2 diabetes mellitus with diabetic chronic kidney disease (E11.22) Active confirmed Problem Hyperglycemia due to type 2 diabetes mellitus (846583441346274) Type 2 diabetes mellitus with hyperglycemia (E11.65) Active confirmed Problem Chronic pain (87580739) Other chronic pain (G89.29) Active confirmed Problem Chronic rhinitis (21169156) Chronic rhinitis (J31.0) Active confirmed Problem Sciatica (92226151) Lumbago with sciatica, left side (M54.42) Active confirmed Problem Chronic kidney disease stage 2 (240847934) Chronic kidney disease, stage 2 (mild) (N18.2) Active confirmed Problem Screening for malignant neoplasm of breast (448808522) Encounter for screening mammogram for malignant neoplasm of breast (Z12.31) Active confirmed Problem Mixed anxiety and depressive disorder (522928798) Depression with anxiety (F41.8) Active confirmed Problem Vitamin D deficiency (37801396) Vitamin D deficiency (E55.9) Active confirmed Problem Essential hypertension (38394800) Essential hypertension (I10) Active confirmed Problem Vitamin B12 deficiency (non anemic) (78806847) B12 deficiency (E53.8) Active confirmed Problem Restless legs syndrome (59706834) Restless leg syndrome (G25.81) Active confirmed Problem Allergic rhinitis (64732267) Chronic allergic rhinitis (J30.9) Active confirmed Problem 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-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 (181564447) 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) Active confirmed Problem Chronic pain (05812899) Other chronic pain (G89.29) Active confirmed Problem Obese class II (403532128990221) BMI 38.0-38.9,adult (Z68.38) Active confirmed Problem Gastroesophageal reflux disease without esophagitis (948882100) Gastroesophageal reflux disease without esophagitis (K21.9) Active confirmed Problem Postmenopausal state (30830462) Post menopausal syndrome (Z78.0) Active confirmed Problem Obese class II (306623058066174) BMI 37.0-37.9, adult (Z68.37) Active confirmed Problem Obese class II (505268073878205) BMI 36.0-36.9,adult (Z68.36) Active confirmed Problem Arthritis of hip (70545414) Hip arthritis (M19.90) Active confirmed Problem Anxiety (06250908) Situational anxiety (F41.8) Active confirmed Problem Peripheral venous insufficiency (94651820) Venous (peripheral) insufficiency (I87.2) Active confirmed Problem Major depression, single episode (24851709) Depression, reactive (F32.9) Active confirmed Problem Localized, primary osteoarthritis of the pelvic region and thigh (576452402) 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) Active confirmed Problem Ventricular premature complex (disorder) (784468804) PVC (premature ventricular contraction) (I49.3) Active confirmed Problem Moderate persistent asthma (397195383) Asthma, moderate persistent (J45.40) Active confirmed Problem Recurrent deep vein thrombosis (DVT) of both lower extremities (I82.403) Active confirmed Problem Spondylosis without myelopathy (97433483) Arthritis of back (M47.9) Active confirmed Problem Obstructive sleep apnea syndrome (04640364) MARYAM on CPAP (G47.33) Active confirmed Problem Postmenopausal osteoporosis (655145886) Postmenopausal osteoporosis (M81.0) Active confirmed Problem Mixed hyperlipidemia (654823459) Mixed dyslipidemia (E78.2) Active confirmed Problem Moderate major depression, single episode (35243703) Current moderate episode of major depressive disorder without prior episode (F32.1) Active confirmed Problem History of iron deficiency (423894341) History of iron deficiency (Z86.39) Active confirmed Problem 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) Active confirmed Problem Anticoagulant therapy (863593241) Anticoagulated on Coumadin (Z79.01) Active confirmed Problem Arthropathy of right sacroiliac joint (73709008556199070 ) Arthropathy of right sacroiliac joint (M47.818) Active confirmed Problem Low back pain (747082166) Low back pain, unspecified (M54.50) Active confirmed Problem Arthritis of hip (38653604) Arthritis of hip (M16.10) Active confirmed Problem Iron deficiency anemia (48330297) Iron deficiency anemia (D50.9) Problem resolved confirmed Vital Signs Heart Rate 76 /min 10/07/2024 Temperature 97.5 degrees Fahrenheit 10/07/2024 Oximetry 96 04/05/2024 O2 sat 96% RA. Blood pressure diastolic 52 mm Hg 10/07/2024 Height 64 in 10/07/2024 Blood pressure systolic 112 mm Hg 10/07/2024 Weight 201.2 lbs 10/07/2024 BMI 34.53 kg/m2 10/07/2024 Encounters Encounter Location Date Provider Diagnosis [facility] [address] [place] [address] 07/13/2024 Provider Migration Type 2 diabetes mellitus with diabetic chronic kidney disease E11.22 [facility] [address] [place] [address] 11/13/2023 Sierra Jerry Acute URI J06.9 [facility] [address] [place] [address] 11/30/2023 Sierra Jerry Chronic kidney disease, stage [...] screening mammogram Z12.31 and Postmenopausal osteoporosis M81.0 [facility] [address] [place] [address] 02/08/2024 Sierra Jerry Type 2 diabetes mellitus with diabetic chronic kidney disease E11.22 ; Subacute sinusitis, unspecified location J01.90 and Nasal congestion R09.81 [facility] [address] [place] [address] 03/21/2024 Sierra Jerry Type 2 diabetes mellitus with diabetic chronic kidney disease E11.22 ; Right flank pain R10.9 ; Chronic rhinitis J31.0 ; Immunization(s) administered Z23 ; Recurrent deep vein thrombosis (DVT) of both lower extremities I82.403 and Essential hypertension I10 [facility] [address] [place] [address] 04/05/2024 Sierra Brooks Acute recurrent frontal sinusitis J01.11 [facility] [address] [place] [address] 05/02/2024 Sierra Jerry Low back pain, unspecified M54.50 ; Other chronic pain G89.29 and Type 2 diabetes mellitus with diabetic chronic kidney disease E11.22 [facility] [address] [place] [address] 09/23/2024 Sierra Jerry Type 2 diabetes mellitus [...] side M54.42 and Other chronic pain G89.29 [facility] [address] [place] [address] 10/07/2024 [facility] Type 2 diabetes mellitus with diabetic chronic kidney disease E11.22 ; Pre-syncope R55 ; Essential hypertension I10 ; History of iron deficiency Z86.39 and Hyperkalemia E87.5 [facility] [address] [place] [address] [facility] [address] [place] [address] 11/20/2023 Sierra Claritza [facility] [address] [place] [address] 12/02/2023 Sierra Claritza [facility] [address] [place] [address] 12/04[facility] [address] [place] [address] [facility] Elevated liver enzym es R74.8 [facility] [address] [place] [address] 01/22/2024 [facility] Type 2 diabetes mellitus with hyperglycemia E11.65 [facility] [address] [place] [address] 01/22/2024 Sierra Claritza [facility] [address] [place] [address] 01/23/2024 [facility] Type 2 diabetes mellitus with hyperglycemia E11.65 [facility] [address] [place] [address] 01/31/2024 Sierra Claritza [facility] [address] [place] [address], [place] [address] 03/11/2024 [facility] Type 2 diabetes mellitus with diabetic chronic kidney disease E11.22 [facility] [address] [place] [address] 03/25/2024 Sierra Jerry Type 2 diabetes mellitus with diabetic chronic kidney disease E11.22 [facility] [address] [place] [address] 05/02/2024 Sierrayulia LoganClaritza [facility] [address] [place] [address] 05/06/2024 Sierra Loganence Arthritis of back M47.9 [facility] [address] [place] [address] 05/08/2024 Sierra Loganence Mid back pain M54.9 [facility] [address] [place] [address] 05/23/2024 Sierra Claritza Type 2 diabetes mellitus with diabetic chronic kidney disease E11.22 [facility] [address] [place] [address] 06/27/2024 Sierra Loganence [facility] [address] [place] [address] 07/15/2024 Sierra Claritza [facility] [address] [place] [address] 09/23/2024 Sierra Loganence [facility] [address] [place] [address] 09/24/2024 Sierra Loganence [facility] [address] [place] [address] 09/24/2024 Sierra Claritza Type 2 diabetes mellitus with diabetic chronic kidney disease E11.22 [facility] [address] [place] [address] 09/25/2024 Sierra Jerry Lumbago with sciatic a, left side M54.42 Assessments Encounter Date Diagnosis (ICD Code) Assessment Notes Treatment Notes Treatment Clinical Notes Section Notes 05/02/2024 Other chronic pain (ICD-10 - G89.29) [...] and lowering basal insulin to avoid hypoglycemia 11/13/2023 Acute URI (ICD-10 - J06.9) Symptoms have improved some since taking Zithromax. No additional antibiotics are indicated at this time. Recommend plain Mucinex twice daily. Return precautions reviewed 2023 Elevated liver enzymes (ICD-10 - R74.8) 01/22/2024 Type 2 diabetes mellitus with hyperglycemia (ICD-10 - E11.65) 01/23/2024 Type 2 diabetes mellitus with hyperglycemia (ICD-10 - E11.65) 04/05/2024 Acute recurrent frontal sinusitis (ICD-10 - [...] with sciatica, left side (ICD-10 - M54.42) 10/07/2024 Type 2 diabetes mellitus with diabetic chronic kidney disease (ICD-10 - E11.22) 10/07/2024 Pre-syncope (ICD-10 - R55) EKG today is unchanged from baseline. Recommend stop losartan, improve oral hydration as able, repeat labs today. If those are unremarkable/im proved we will resume metformin and plan to hold Mounjaro for 1-2 weeks in case this is a side effect for her. 03/25/2024 Type 2 diabetes mellitus with diabetic chronic kidney disease (ICD-10 - E11.22) 03/21/2024 Type 2 diabetes mellitus with diabetic chronic kidney disease (ICD-10 - E11.22) labs today as noted, discussed possibly increasing Truliciy to 3mg weekly as tolerated. 03/21/2024 Right flank pain (ICD-10 - R10.9) rec massage for muscle soreness, UA neg for blood today, monitor 03/11/2024 Type 2 diabetes mellitus with diabetic chronic kidney disease (ICD-10 - E11.22) 02/08/2024 Type 2 diabetes mellitus with diabetic [...] with Coumadin clinic anytime she takes antibiotics. 11/30/2023 Chronic kidney disease, stage 2 (mild) [...] and exercise as much as tolerated recommended 11/30/2023 Type 2 diabetes mellitus with diabetic chronic kidney disease (ICD-10 - E11.22) 02/08/2024 Nasal congestion (ICD-10 - R09.81) 03/21/2024 Chronic rhinitis (ICD-10 - J31.0) 10/07/2024 Essential hypertension (ICD-10 - I10) 09/23/2024 Essential hypertension (ICD-10 - I10) well controlled on current regimen 05/02/2024 Type 2 diabetes mellitus with diabetic chronic kidney disease (ICD-10 - E11.22) 09/23/2024 History of iron deficiency (ICD-10 - Z86.39) 10/07/2024 History of iron deficiency (ICD-10 - Z86.39) 03/21/2024 Immunization(s) administered (ICD-10 - Z23) 11/30/2023 Mixed dyslipidemia (ICD-10 - E78.2) 11/30/2023 Venous (peripheral) insufficiency (ICD-10 - I87.2) 03/21/2024 Recurrent deep vein thrombosis (DVT) of both lower extremities (ICD-10 - I82.403) following with coumadin clinic, no significant issues since adding Trulicity 09/23/2024 Restless leg syndrome (ICD-10 - G25.81) 10/07/2024 Hyperkalemia (ICD-10 - E87.5) 09/23/2024 Vitamin D deficiency (ICD-10 - E55.9) 03/21/2024 Essential hypertension (ICD-10 - I10) well controlled on current regimen 11/30/2023 Asthma, moderate persistent (ICD-10 - J45.40) 11/30/2023 Recurrent deep vein thrombosis (DVT) of both lower extremities (ICD-10 - I82.403) 09/23/2024 B12 deficiency (ICD-10 - E53.8) 09/23/2024 Mixed dyslipidemia (ICD-10 - E78.2) 11/30/2023 Essential hypertension (ICD-10 - I10) 11/30/2023 B12 deficiency (ICD-10 - E53.8) 09/23/2024 Acute non-recurrent maxillary sinusitis (ICD-10 - J01.00) 09/23/2024 Lumbago with sciatica, left side (ICD-10 - M54.42) 11/30/2023 Vitamin D deficiency (ICD-10 - E55.9) 11/30/2023 Depression, reactive (ICD-10 - F32.9) 09/23/2024 [...] AUTO DIFF 06/27/2014 H-CBC with AUTO DIFF 06/20/2014 H-CBC with AUTO DIFF 03/20/2017 H-CBC with AUTO DIFF 11/26/2014 H-CBC with AUTO DIFF 07/24/2017 H-CBC with AUTO DIFF 08/31/2015 H-VITAMIN B12 07/24/2017 H-VITAMIN B6 (PYRIDOXAL PHOSPHAT 015 H-FERRITIN 11/26/2014 H-FERRITIN 07/24/2017 H-CMP 08/31/2015 H-CMP 07/24/2017 H-CMP 11/30/2015 H-CMP 11/26/2014 H-CMP 06/20/2014 H-CMP 03/20/2017 H-MAGNESIUM 06/20/2014 H-LIPID PANEL 11/26/2014 H-LIPID PANEL 02/17/2014 H-LIPID PANEL 03/20/2017 H-LIPID PANEL 08/31/2015 H-LIPID PANEL 07/24/2017 H-HGBA1C 07/24/2017 H-HGBA1C 08/31/2015 H-HGBA1C 11/30/2015 H-HGBA1C 11/26/2014 H-TSH 06/20/2014 H-TSH 07/24/2017 H-VIT D, 25-HYDROXY 08/31/2015 H-VIT D, 25-HYDROXY 07/24/2017 H-MICROALBUMIN URINE 08/31/2015 H-RADHA PROFILE 06/20/2014 H-ANTI PHOSPHOLIPID ANTIBODY 02/15/2012 Pulmonary Function Test- Complete 2020 H-VITAMIN C 06/20/2014 M-Complete Blood Count Auto Diff 020 M-Complete Blood Count Auto Diff 024 M-Complete Blood Count Auto Diff 019 M-D-Dimer 11/30/2020 M-Comprehensive Metabolic Panel 12/26/19 M-Comprehensive Metabolic Panel 11/30/19 M-Comprehensive Metabolic Panel 12/28/19 M-Hemoglobin A1C 12/27/2018 M-Hemoglobin A1C 12/26/2019 M-Hemoglobin A1C 11/30/2023 M-Lipid Panel 11/30/2023 M-Lipid Panel 12/26/2019 M-Lipid Panel 12/27/2018 M-Vitamin B12 12/27/2018 M-Vitamin B12 11/30/2023 M-Vitamin B12 07/09/2020 M-Vitamin B12 02/09/2023 M-Vitamin B12 09/23/2024 M-Vitamin D 25 Hydroxy 09/23/2024 M-Vitamin D 25 Hydroxy 02/09/2023 M-Vitamin D 25 Hydroxy 07/09/2020 M-Vitamin D 25 Hydroxy 11/30/2023 M-Vitamin D 25 Hydroxy 12/27/2018 M-Iron and TIBC 09/23/2024 M-Microalb/Creat Ratio, Randm Ur 020 M-Microalb/Creat Ratio, Rand Ur 023 M-Microalb/Creat Ratio, Rand Ur 019 M-Microalb/Creat Ratio, Rand Ur 019 M-Microalb/Creat Ratio, Rand Ur 018 M-Microalb/Creat Ratio, Rand Ur 024 Physical Therapy Eval and Treat 07/11/19 24 Physical Therapy Eval and Treat 05/06/19 25 Future Test Test Name Order Date H-BMP 07/09/2012 Next Appt Details Provider Name:Sierra Hope Elpidio ce, 10/31/2024 09:00:00 AM, [address] [facility], [address], [place], [address], Insurance Providers Payer Name Payer Address Payer Phone Subscriber Number Group Number Insured Name Patient Relationship to Insured Coverage Start Date Coverage End Date [employer] [address] [address] [place] [address] [id number] Dior Hanley Self - patient is the insured Medications Administered Medication Instructions Date of Administration Dosage Notes allergy 02/18/2015 .30 mL Vial A-Right Vial B-Left allergy 02/23/2015 0.35 mL Vial A-Right A rm, Pt's own medication allergy 02/23/2015 0.35 mL Vial B-Left ar m- Pt's own medication allergy 03/02/2015 .40 mL Vial A-Right Vial B-Left allergy 03/30/2015 0.1 mL Vial A-Right A rm allergy 03/30/2015 0.1 mL Vial B- Left a rm allergy 04/06/2015 .15 mL Vial A-Right Vial B-Left allergy 04/13/2015 .20 mL Vial A-Right Vial B-Left allergy 05/18/2015 0.40 mL Vial A-0.40cc rt arm Vial B-0.40cc lt arm allergy 06/01/2015 0.45 mL Vial A- right arm allergy 06/01/2015 0.45 mL Vial B- Left a rm allergy 06/08/2015 0.50 mL Vial A-rt arm Vial B-lt arm allergy 07/13/2015 0.2 mL Vial A Lt arm Vial B Rt arm allergy 07/21/2015 .25 mL Vial A-Left Vial B-Right allergy 07/28/2015 .30 mL Vial A-Left Vial B-Right allergy 12/28/2015 .25 mL Vial A-Left Vial B-Right allergy 02/01/2016 .25 mL Vial A-Left Vial B-Right allergy 04/25/2016 0.25 mL Vial A and B allergy 06/06/2016 0.25 mL Vial A-0.25cc Lt Arm Vial B-0.25cc Rt Arm Kenalog 04/09/2015 1 mL allergy 06/29/2015 .15 mL Vial A-Right Vial B-Left allergy 06/22/2015 .10 mL Vial A-right Vial B-left allergy 06/15/2015 .05 mL Vial A-Right Vial B-Left allergy 05/11/2015 0.35 mL Vial A rt arm Vial B lt arm allergy 04/27/2015 0.30 mL 0.30cc Rt arm- Vial B allergy 04/27/2015 0.30 mL Lt arm-vial A allergy 04/20/2015 0.25 mL Vial B-Left ar m allergy 04/20/2015 0.25 mL Vial A-Right a rm allergy 03/23/2015 .5 mL Vial A-right Vial B-left allergy 03/16/2015 0.5 mL Vial B-Left ar m allergy 03/16/2015 0.5 mL Vial A- Right Arm allergy 03/09/2015 0.45 mL Vial B-Left ar m allergy 03/09/2015 0.45 mL Vial A-right a rm allergy 02/09/2015 0.25 mL Vial A-right arm Vial B-left arm allergy 02/03/2015 .20 mL Vial A-Right Vial B-Left allergy 01/27/2015 .15 mL Vial A-Right Vial B-Left allergy 01/20/2015 .10 mL Vial A-Right Vial B-Left allergy 01/12/2015 0.05 mL vial A: right arm vial B: left arm allergy 12/31/2014 .5 mL Vial 12A-left arm Vial 12B-right arm Triamcinolone Acetonide 40mg Injection 03/27/2018 1 mL allergy 06/14/2016 0.25 mL vial A/0.25cc LA vial B/0.25 RA allergy 05/30/2016 0.25 mL Vial B- Right arm allergy 05/30/2016 0.25 mL Vial A- Left a rm allergy 05/23/2016 0.20 mL Vial A-0.20cc Lt arm Vial B-0.20cc Rt arm allergy 05/16/2016 0.15 mL Vial A-0.15cc Lt arm Vial V-0.15cc Rt arm allergy 05/09/2016 0.25 mL Vial B- Left a rm allergy 05/09/2016 0.25 mL Vial A- right arm allergy 05/02/2016 0.25 mL Vial A and B allergy 04/18/2016 0.25 mL Vial b- Left a rm allergy 04/18/2016 0.25 mL Vial A- Right arm allergy 04/12/2016 0.25 mL Vial A-Rt arm Vial B-Lt arm allergy 04/06/2016 .25 mL Vial A-Right Vial B-Left allergy 03/28/2016 .25 mL Vial A-Right Vial B-Left allergy 03/22/2016 0.25 mL Vial A-0.25cc Rt arm Vial B-0.25cc Lt arm allergy 03/08/2016 0.25 mL Vial B lt arm allergy 03/08/2016 0.25 mL Vial A rt arm allergy 02/22/2016 .20 mL Vial A Right Vial B Left allergy 02/08/2016 .15 mL Vial A- Left Vial B- Right allergy 01/18/2016 .25 mL Vial A-Left Vial B-Right allergy 01/11/2016 .25 mL Vial A - Left Vial B- Right allergy 01/04/2016 .25 mL Vial A-Left Vial B-Right allergy 12/21/2015 .25 mL Vial A-Left Vial B-Right allergy 12/15/2015 0.25 mL Vial B-Right a rm allergy 12/15/2015 0.25 mL Vial A- Left a rm allergy 12/07/2015 .25 mL Vial A-Left Vial B-Right allergy 11/30/2015 .25 mL Vial A-Left Vial B-Right allergy 11/23/2015 0.25 mL Lt arm-Vial A Rt arm-Vial B allergy 11/16/2015 .20 mL Vial A-left Vial B-right allergy 11/10/2015 0.15 mL Vial A-Left Vial B-Right allergy 11/03/2015 .25 mL Vial A-Right Vial B-Left allergy 10/28/2015 0.25 mL Vial B-Left ar m allergy 10/28/2015 0.25 mL Vial A- Right arm allergy 10/21/2015 .20 mL Vial A-Right Vial B-Left allergy 10/13/2015 0.20 mL Vial B- Left a rm allergy 10/13/2015 0.20 mL Vial A-Right a rm allergy 10/05/2015 .15 mL Vial A Right Vial B Left allergy 09/29/2015 0.15 mL Vial B-Left ar m allergy 09/29/2015 0.15 mL Vial A-Right a rm allergy 09/21/2015 .10 mL Vial A- Right Vial B- Left allergy 09/14/2015 .1 mL Vial A-right Vial B- left allergy 09/08/2015 0.05 mL Vial B: Left a rm allergy 09/08/2015 0.05 mL Vial A: Right arm allergy 08/31/2015 .05 mL Vial A-Left Vial B-Right allergy 08/24/2015 0.5 mL Vial B: Right arm allergy 08/24/2015 0.5 mL Vial A:Left ar m allergy 08/17/2015 .45 mL Left- Vial A Right- Vial B allergy 08/10/2015 0.40 mL Vial B-Right a rm allergy 08/10/2015 0.40 mL Vial A-Left ar m allergy 08/05/2015 .35 mL Vial A-Left Vial B-Right Medical (General) History Medical History History ICD [...]
[2024-10-23 10:30] VITALS: BP 124/63; PULSE 72; RESP 18; O2SAT 97; BMI 32.3
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
== END 2024-10-23 23:59 | disposition home or self-care (01) ==
LOC: SC.PAIN 09:56
PROVIDERS: PCP Nurse Practitioner Family; Visit Provider Nurse Practitioner Family
DX: M51.16 Intervertebral disc disorders with radiculopathy, lumbar region (principal); M25.561 Pain in right knee
CPT/HCPCS: 99202; G0463

== ENCOUNTER 2024-10-31 09:51 | Outpatient (CLI) | payer MEDICARE, SELFPAY ==
--- OUTSIDE RECORDS SUMMARY | 2023-04-07 14:52 | XMS_ITS | Encounter Summary ---
[facility] Address [address] [place] [address] Care Team Providers Care Attendant [facility] Name Role Phone Sierra Jerry APRN Primary Care Provid er Encounter Details Date Type Department Care Team (Late st Contact Info) Description 04/07/2023 1:52 PM EST Hospital Encounter [facility] PULMONARY & CRITICAL CARE MEDICINE [facility] [place] [address] Social History Tobacco Use Types [...] on filedocumented in this encounter Care Teams Attendant [facility] Relationship Specialty Start Date End Date Sierra Jerry APRN [address] [place] [id number] PCP - General Family Medicine 04/07/23 documented as of this encounter
--- OUTSIDE RECORDS SUMMARY | 2024-09-25 06:27 | XMS_ITS ---
Author Organization [facility] Address [address] [place] [address] Care Team Providers Care Rubber Compounder Formulator Name Role Phone Sierra Jerry Primary Care Provider Results Component Value Reference Range Notes MRI : Lumbar Spine w/o contr ast Reviewed date:10/04/2024 02:30:25 PM Interpretation: Performing Lab: Notes/Report: REASON FOR VISIT mri order Encounters Encounter Location Date Provider Diagnosis [facility] [address] [place] [address] 09/25/2024 Sierra Jerry Lumbago with sciatica, left side M54.42 Assessments Encounter Date Diagnosis (ICD Code) Assessment Notes Treatment Notes Treatment Clinical Notes Section Notes 09/25/2024 Lumbago with sciatica, left side (ICD-10 - M54.42) Plan Of Treatment No Information Progress Notes * Elenita CONTRERASOB: 5 (68 yo F)Acc No.[id number]:09/25/2024 Patient: Dior CUNNINGHAM :1955 A ge:68 Y S ex:Female Address:[address], [place], [address] Subjective: * Chief Complaints: * M ri order * Medical History: * Surgical History: * Hospitalization/Major Diagno stic Procedure: * Medications: Objective: * Vitals: * Physical Examination: Assessment: * Assessment: 1. L umbago with sciatica, left side - M54.42 Plan: * Treatment: * * Procedure Codes: * true * Date: Generated for Mirta lynne/Evaristo/Yuri on: 0 10/31/2024 09:55 AM EDT
--- OUTSIDE RECORDS SUMMARY | 2024-10-07 07:00 | XMS_ITS ---
Author Organization [facility] Address [address] [facility] [address] [facility] [address] [place] [address] Care Team Providers Care Charge Entry Clerk Name Role Phone Sierra Jerry Primary Care Provider [phone] Allergies Allergen (clinical drug ingredient) Drug/Non Drug Allergy documented on EMR Reaction Allergy Type Onset Date Status IV BENADRYL (uncoded) elevated b/p Allergy Active KEFLEX (uncoded) itching Allergy Act chelsea fluticasone / umeclidinium / vilanterol Trelegy Ellipta voiding issues Drug Allergy Active insulin glargine Toujeo SoloStar Unknown Drug Allergy Active Substance with 3-qnxcrty-8-methylgl utaryl-coenzyme A reductase inhibitor mechanism of action (substance) Statins itching Drug Allergy Active Penicillin rash Drug Allergy Active valacyclovir valACYclovir cough/wheeze Drug Allergy Active Results Component Value Reference Range Notes M-Complete Blood Count Auto Diff Reviewed date:10/09/2024 12:00:18 PM Interpretation: Performing Lab: Notes/Report: WBC 7.8 4.8-10.8 K/mm3 RBC 4.82 4.20-5.40 M/mm3 HGB 12.4 12.2-16.2 g/dL HCT 40.5 37.0-47.0 % MCV 84.0 81-99 fl MCH 25.7 27.0-31.2 pg MCHC 30.6 31.8-35.4 g/dL RDW 14.4 11.5-17.5 % PLT 296 142-424 K/mm3 MPV 11.5 7.4-10.4 fl NE% 64.2 37.0-80.0 % LY% 22.3 10-50 % MO% 7.9 1.7-9.3 % EO% 4.5 0.1-12.0 % BA% 0.8 0.1-2.0 % NE# 5.0 1.8-7.8 K/mm3 LY# 1.7 0.7-4.5 K/mm3 MO# 0.6 0.1-1.0 K/mm3 EO# 0.4 0.0-0.4 Kmm3 BA# 0.1 0-0.2 K/mm3 RDW-SD 44.1 NRBC% 0 IG% 0.3 NRBC# 0 IG# 0.02 M-Basic Metabolic Panel Reviewed date:10/09/2024 12:00:19 PM Interpretation: Performing Lab: Notes/Report: NA 132 136-145 mmol/L K 5.6 3.5-5.1 mmoL/L CL 99 98-107 mmol/L CO2 22 22.0-30.0 mmol/L GAP 16.6 5-15 mEq/L BUN 14 7-17 mg/dl CREATT 1.10 0.52-1.04 mg/dl GFRAA 60 >60 ML/MIN EGFR 49 >60 ml/min GLU 206 74-100 mg/dl CA 9.2 8.4-10.2 mg/dl M-Magnesium Reviewed date:10/09/2024 12:00:19 PM Interpretation: Performing Lab: Notes/Report: MG 2.4 1.6-2.3 mg/dl REASON FOR VISIT High potassium, when standing up vision goes black, weakness Medications Medication SIG (Take, Route, Frequency, Duration) Notes Start Date End Date Status Metoprolol Succinate ER 50 MG 1 tab(s) orally once a day; Duration: 90 days Active Lantus SoloStar 100 UNIT/ML 50 units subcutaneously once daily Active Citalopram Hydrobromide 40 MG 1 tab(s) orally once a day; Duration: 90 days Active Meclizine HCl 25 MG 1/2 or whole tablet orally at night as needed for vertigo; Duration: 90 days Active Lansoprazole 30 MG 1 cap(s) orally once a day; Duration: 90 days Active ALBUTEROL (EQV-PROAIR HFA) 90 MCG/INH USE 2 INHALATIONS EVERY 6 HOURS prn *Please review for potential replacement for e-prescription and drug interaction check* Active Azelastine HCl 137 MCG/SPRAY 1 spray(s) in each nostril 2 times a day; Duration: 30 days 01/31/2024 Active HumaLOG KwikPen 100 UNIT/ML inject up to 15 units with meals, not to exceed 45 units per day subcutaneously 3 times a day Active Breztri Aerosphere 160 MCG-4.8 MCG-9 MCG/INH 2 PUFF(S) INHALED 2 TIMES A DAY; Duration: 84 DAYS *Please review and pick correct strength-formulati on from [employer] options. If intended option is not shown, discontinue and re-order from Quick Search* Active ONE TOUCH ULTRA LANCETS NA DX: E11.22 TEST TID & NEEDED; Duration: 90 DAYS *Please review for potential replacement for e-prescription and drug interaction check* 01/07/2013 Active Valium 5 MG 1 tab(s) orally once a day as needed for anxiety or insomnia; Duration: 90 days 08/14/2021 Active Fluticasone Propionate 50 MCG/ACT 2 spray(s) in each nostril twice daily; Duration: 10 days 06/25/2022 Active BD KELVIN 2ND GEN PEN NEEDLE 4MM X 32G FOR USE WITH INSULIN SQ BID; Duration: 90 DAYS *Please review for potential replacement for e-prescription and drug interaction check* Active Dexcom G7 Customer Experience Associate DIRECTED CONTINUOUS GLUCOSE MONITORING; Duration: 30 DAY(S) *Please review and pick correct strength-formulati on from [employer] options. If intended option is not shown, discontinue and re-order from Quick Search* 07/08/2022 Active ONE TOUCH ULTRA TEST STRIPS BLUE DX: E11.22 TEST TID & NEEDED; Duration: 90 DAYS *Please review for potential replacement for e-prescription and drug interaction check* 07/06/2013 Active Ipratropium-Albuter ol 0.5-2.5 (3) MG/3ML 3 mL by nebulizer TID and q6 hours prn 03/22/2018 Active Xyzal Allergy 24HR 5 MG 1 po qd Active Reclast 5 MG/100ML as directed intravenously once Active PROBIOTIC FORMULA (BACILLUS COAGULANS) - 1 CAP(S) ORALLY ONCE A DAY *Please review for potential replacement for e-prescription and drug interaction check* Active ONE TOUCH MINI GLUCOMETER DIRECTED *Please review for potential replacement for e-prescription and drug interaction check* 03/05/2014 Active Baclofen 5 MG 1 tablet with food o r milk Orally Once a day at bedtime; Duration: 30 days 09/24/2024 Active Warfarin Sodium 2 MG 4 tablets orally once a day; Duration: 90 days Active PEN NDL KELVIN 32G X 4MM PEN NEEDLES SUBCUTANEOUSLY THREE TIMES A DAY; Duration: 90 days Active Losartan Potassium 100 MG 1/2 tab orally once a day Active Mounjaro 2.5 MG/0.5ML INJECT 1 SYRINGE SUBCUTANEOUSLY ONCE A WEEK; Duration: 84 Active [employer] G7 Sensor 1 SENSOR DIRECTED FOR CONTINUOUS GLUCOSE MONITORING; Duration: 90 DAYS *Please review and pick correct strength-formulati on from [employer] options. If intended option is not shown, discontinue and re-order from Quick Search* Active Vital Signs Temperature 97.5 degrees Fahrenheit 10/08/19 25 Blood pressure systolic 112 mm Hg 10/08/19 25 Blood pressure diastolic 52 mm Hg 025 Heart Rate 76 /min 10/07/2024 Height 64 in 10/07/2024 Weight 201.2 lbs 10/07/2024 BMI 34.53 kg/m2 10/07/2024 Encounters Encounter Location Date Provider Diagnosis [facility] [place] [address] [facility] [address] [place] [address] 10/07/2024 Sierra Jerry Type 2 diabetes mellitus with diabetic chronic kidney disease E11.22 ; Pre-syncope R55 ; Essential hypertension I10 ; History of iron deficiency Z86.39 and Hyperkalemia E87.5 Assessments Encounter Date Diagnosis (ICD Code) Assessment Notes Treatment Notes Treatment Clinical Notes Section Notes 10/07/2024 Type 2 diabetes mellitus with diabetic chronic kidney disease (ICD-10 - E11.22) 10/07/2024 Pre-syncope (ICD-10 - R55) EKG today is unchanged from baseline. Recommend stop losartan, improve oral hydration as able, repeat labs today. If those are unremarkable/i mproved we will resume metformin and plan to hold Mounjaro for 1-2 weeks in case this is a side effect for her. 10/07/2024 Essential hypertension (ICD-10 - I10) 10/07/2024 History of iron deficiency (ICD-10 - Z86.39) 10/07/2024 Hyperkalemia (ICD-10 - E87.5) Plan Of Treatment Next Appt Details Follow Up: pending results, Reason: Progress Notes * Elenita CONTRERASOB: 5 (68 yo F)Acc No.[id number]:10/07/2024 Progress Notes Patient: Dior CUNNINGHAM Provider: PARVEZ Brock :1955 A ge:68 Y S ex:Female Date:10/07/2024 Address:[address], [place], [id number] Subjective: * Chief Complaints: * 1 . High potassium, when standing up vision goes black, weakness. * HPI: C ardiology: 68-year-old female presents today with concerns of feeling poorly overall, feels presyncopal upon standing and really does not resolve until she sits back down. This has been ongoing over the last month or so when she thought this was secondary to a viral illness that she had recently but since those symptoms have resolved the presyncopal events have continued. No associated hypoglycemia. Recent labs indicated some PRISCILLA and hyperkalemia, we stopped her metformin and decreased her losartan by half, this was about 2 weeks ago. She does note that since stopping her metformin her glucose has been much higher on average. 68 year old female presents with c/o dizziness. c/o fatigue. c/o diaphoresis. Denies : chest pain. D enies : shortness of breath. D enies : palpitations. D enies : leg edema. D enies : cyanosis. * ROS: R ESPIRATORY: no C hest congestion. n o C ough. C ARDIOLOGY: no C hest pain. n o P alpitations. S hortness of breath y es, a t baseline. C ONSTITUTIONAL: Loss of appetite y es. n o F ever. W eakness?yes. F atigue yes. D ERMATOLOGY: no R lorena. G ASTROENTEROLOGY: no V omiting. n o D iarrhea. * Medical History: t ype II diabetes, [...] diastolic dysfunction, Spots on vocal cords. * Medications: T aking Reclast 5 MG/100ML [...] nostril twice daily , Taking Dexcom G7 Customer Experience Associate DIRECTED CONTINUOUS GLUCOSE MONITORING , Notes to Pharmacist: *Please review and pick correct strength-formulation from Exelon[employer] options. If intended option is not shown, [...] for e-prescription and drug interaction check*, Taking Azelastine HCl 137 MCG/SPRAY Solution 1 spray(s) in each nostril 2 times a day , Taking ALBUTEROL (EQV-PROAIR HFA) 90 MCG/INH AEROSOL USE 2 INHALATIONS EVERY 6 HOURS , Notes to Pharmacist: prn *Please review for potential replacement for e-prescription and drug interaction check*, Taking Breztri Aerosphere 160 MCG- 4.8 MCG-9 MCG/INH AEROSOL 2 PUFF(S) INHALED 2 TIMES A DAY , Notes to Pharmacist: *Please review and pick correct strength-formulation from [employer] options. If intended option is not shown, [...] *Please review and pick correct strength-formulation from Cohuman options. If intended option is not shown, discontinue and re-order from Quick Search*, Taking Mounjaro 2.5 MG/0.5ML Solution Auto-injector INJECT 1 SYRINGE SUBCUTANEOUSLY ONCE A WEEK , Taking PEN NDL KELVIN 32G X 4MM PEN NEEDLES SUBCUTANEOUSLY THREE TIMES A DAY , Taking Warfarin Sodium 2 MG Tablet 4 tablets orally once a day , Taking Losartan Potassium 100 MG Tablet 1/2 tab orally once a day , Taking Baclofen 5 MG Tablet 1 tablet with food or milk Orally Once a day at bedtime , Discontinued Doxycycline Hyclate 100 MG Capsule 1 capsule Orally twice a day , Medication List reviewed and reconciled with the patient * Allergies: P enicillin: rash, IV BENADRYL: elevated b/p, KEFLEX: itching, Statins: itching, valACYclovir: cough/wheeze, Trelegy Ellipta: voiding issues, Toujeo SoloStar. Objective: * Vitals: N urse: KJ, Pain: 7 hip, Temp: 97.5, RR: 16, HR: 76, BP: 112/52, Ht: 64, Wt: 201.2, BMI:34.53, Repeat BP: 114/62. * Examination: G eneral Examination: General P leasant and Cooperative, NAD on RA,. Heart: R egular Rate and Rhythm,. HEENT: p harynx and tonsils normal, TM's normal. Lungs: c lear to auscultation,. Abdomen: S oft, NTND, BSNA, No organomegaly or peritoneal signs.. Neurologic Exam: A lert and oriented x 3. Skin: w ithout acute rashes. neck s upple,, no lymphadenopathy,, No Carotid Bruit,. Psych N ormal Mood/Affect. Assessment: * Assessment: 1. P re-syncope - R55 (Primary) 2 . T ype 2 diabetes mellitus with diabetic chronic kidney disease - E11.22 3 . E ssential hypertension - I10 ?4. H istory of iron deficiency - Z86.39 5 . H yperkalemia - E87.5 ? Plan: * Treatment: 2. E ssential hypertension L AB: M-Magnesium (Collection Date & Time - 10/07/2024 10:59 AM) Value Reference Range M agnesium 2.4 H 1.6-2.3 - mg/dl * Renita Olivera 10/10/19 25 12:00:03 PM EDT > pt informed, christi madeThis lab was reviewed by Renita Olivera on 10/09/2024 at 12:00 PM EDT 3.?History of iron deficiency?LAB: M-Complete Blood Count Auto Diff (Collection Date & Time - 10/07/2024 10:59 AM)* Value Reference Range W tamika Blood Count 7.8 4.8-10.8 - K/mm3 * R ed Blood Count 4.82 4.20-5.40 - M/mm3 * H emoglobin 12.4 12.2-16.2 - g/dL * H ematocrit 40.5 37.0-47.0 - % * M anjana Corpuscular Volume 84.0 81-99 - fl * M anjana Corpuscular Hemoglobin 25.7 L 27.0-31.2 - p g * M anjana Corpuscular HGB Conc 30.6 L 31.8-35.4 - g/d L * R ed Cell Distribution Width 14.4 11.5-17.5 - % * P latelet Count 296 142-424 - K/mm3 * M anjana Platelet Volume 11.5 H 7.4-10.4 - fl * N eutrophils % 64.2 37.0-80.0 - % * L ymphocytes % 22.3 10-50 - % * M onocytes % 7.9 1.7-9.3 - % * E osinophils % 4.5 0.1-12.0 - % * B asophils % 0.8 0.1-2.0 - % * N eutrophils # 5.0 1.8-7.8 - K/mm3 * L ymphocytes # 1.7 0.7-4.5 - K/mm3 * M onocytes # 0.6 0.1-1.0 - K/mm3 * E osinophils # 0.4 0.0-0.4 - Kmm3 * B asophils # 0.1 0-0.2 - K/mm3 * Renita Olivera N 10/10/19 25 12:00:03 PM EDT > pt informed, christi madeThis lab was reviewed by Renita Olivera on 10/09/2024 at 12:00 PM EDT ?LAB: M-Basic Metabolic Panel (Collection Date & Time - 10/07/2024 10:59 AM) * Value Reference Range S odium 132 L 136-145 - mmol/L * P otassium 5.6 H 3.5-5.1 - mmoL/L * C hloride 99 98-107 - mmol/L * C arbon Dioxide 22 22.0-30.0 - mmol/L * A nion Gap 16.6 H 5-15 - mEq/L * B lood Urea Nitrogen 14 7-17 - mg/dl * C reatinine,Serum 1.10 H 0.52-1.04 - mg/dl * G FR () 60 >60 - ML/MIN * E stimated Glomerular Filt Rate 49 L >60 - ml/m in * G lucose 206 H 74-100 - mg/dl * Earlywine, Renita N 10/10/19 25 12:00:03 PM EDT > pt informed, christi madeThis lab was reviewed by Renita Olivera on 10/09/2024 at 12:00 PM EDT 4.?Hyperkalemia?LAB: M-Complete Blood Count Auto Diff (Collection Date & Time - 10/07/2024 10:59 AM)* Value Reference Range W tamika Blood Count 7.8 4.8-10.8 - K/mm3 * R ed Blood Count 4.82 4.20-5.40 - M/mm3 * H emoglobin 12.4 12.2-16.2 - g/dL * H ematocrit 40.5 37.0-47.0 - % * M anjana Corpuscular Volume 84.0 81-99 - fl * M anjana Corpuscular Hemoglobin 25.7 L 27.0-31.2 - p g * M anjana Corpuscular HGB Conc 30.6 L 31.8-35.4 - g/d L * R ed Cell Distribution Width 14.4 11.5-17.5 - % * P latelet Count 296 142-424 - K/mm3 * M anjana Platelet Volume 11.5 H 7.4-10.4 - fl * N eutrophils % 64.2 37.0-80.0 - % * L ymphocytes % 22.3 10-50 - % * M onocytes % 7.9 1.7-9.3 - % * E osinophils % 4.5 0.1-12.0 - % * B asophils % 0.8 0.1-2.0 - % * N eutrophils # 5.0 1.8-7.8 - K/mm3 * L ymphocytes # 1.7 0.7-4.5 - K/mm3 * M onocytes # 0.6 0.1-1.0 - K/mm3 * E osinophils # 0.4 0.0-0.4 - Kmm3 * B asophils # 0.1 0-0.2 - K/mm3 * DontrellFracisco laurashel Russell 10/10/19 12:00:03 PM EDT > pt informed, christi madeThis lab was reviewed by Renita Olivera on 10/09/2024 at 12:00 PM EDT ?LAB: M-Basic Metabolic Panel (Collection Date & Time - 10/07/2024 10:59 AM) * Value Reference Range S odium 132 L 136-145 - mmol/L * P otassium 5.6 H 3.5-5.1 - mmoL/L * C hloride 99 98-107 - mmol/L * C arbon Dioxide 22 22.0-30.0 - mmol/L * A nion Gap 16.6 H 5-15 - mEq/L * B lood Urea Nitrogen 14 7-17 - mg/dl * C reatinine,Serum 1.10 H 0.52-1.04 - mg/dl * G FR () 60 >60 - ML/MIN * E stimated Glomerular Filt Rate 49 L >60 - ml/m in * G lucose 206 H 74-100 - mg/dl * Renita Olivera 10/10/19 25 12:00:03 PM EDT > pt informed, christi madeThis lab was reviewed by Renita Olivera on 10/09/2024 at 12:00 PM EDT ?LAB: M-Magnesium (Collection Date & Time - 10/07/2024 10:59 AM)* Value Reference Range M agnesium 2.4 H 1.6-2.3 - mg/dl * Renita Olivera 10/10/19 25 12:00:03 PM EDT > pt informed, christi lindaThis lab was reviewed by Renita Olivera on 10/09/2024 at 12:00 PM EDT * Procedure Codes: 9 3000 EKG WITH INTERP. * Follow Up: p ending results * * Sign off status: Completed true * Provider: PARVEZ Brock Date: 10/07/2024 Generated for Mirta lynne/Evaristo/Yuri on: 10/31/2024 09:56 AM EDT History and Physical Notes * HPI (History of Present Illness) Category Sub-Category Detail Notes Category Not es Cardiology shortness of breath chest pain palpitations dizziness leg edema fatigue cyanosis diaphoresis Examination Category Sub-Category Detail Notes Category Not es General Examination HEENT: pharynx and tonsils normal, TM's normal Heart: Regular Rate and Rhy thm, Lungs: clear to auscultatio n, Abdomen: Soft, NTND, BSNA, No organomegaly or peritoneal signs. Skin: without acute rashes Neurologic Exam: Alert and oriented x 3 neck supple,, no lymphade nopathy,, No Carotid Bruit, General Pleasant and Coopera tive, NAD on RA, Psych Normal Mood/Affect
--- OUTSIDE RECORDS SUMMARY | 2024-10-31 09:56 | XMS_ITS | Encounter Summary ---
Author Organization [employer] ([place], [place], [place], [place]) Address [address] [place] [address] Care Team Providers Care Chiropractor Sole Practitioner Name Role Phone Unavailable Primary Care Provider Unavailabl e Encounter Details Date Type Department Care Team (Late st Contact Info) Description 06/06/2022 Outside Orders [facility] Outpatient Physical Therapy [address] [facility] [address] [place] [address] Oliverio Ricks MD [address] [place] [address] [address] [place] [address] Hoarseness (Primary Dx) Social History Tobacco Use [...]
--- OUTSIDE RECORDS SUMMARY | 2024-10-31 09:56 | XMS_ITS | Encounter Summary ---
Author Organization [employer] ([place], [place], [place], [place]) Address [address] [place] [address] Care Team Providers Care E M Assembler Name Role Phone Unavailable Primary Care Provider Unavailabl e Encounter Details Date Type Department Care Team (Late st Contact Info) Description 10/13/2020 Transcribed Document [facility] [place] [facility] [place] [address] ProviderDaniela MD [address] [place] [id number] Social History Tobacco Use Types Packs/Day Years Used Date Smoking Tobacco: Never Assessed Comments Unknown Sex and Gender Information Value Date Recorded Sex Assigned at Not on file Legal Sex Female 10:09 AM CDT Gender Identity Not on file Sexual Orientation Not on file documented as of this encounter Miscellaneous Notes * Cerner Conversion Note - Historical ProviderMD - 10/13/2020 3:55 AM CDT [facility] Emergency Department Depart Summary PERSON INFORMATION Name Dior Hanley Age 64 Years 1955 Sex Female Language PCP Marital Status Phone [id number] Visit Id Visit Reason N and/or V Specialty Enc Type Emergency Med Service Referred by Track Group [facility] Discharge Tracking Id [id number] Checkout 10/12/2020 23:55:12 Checkin 10/12/2020 20:44:00 Acuity 3 - Urgent [facility] Dispo Type Arrival 10/12/2020 20:44:00 Reg Status LOS 000 03:11 Address: ALEJANDRA KENT [address] [place] [address] POWERFOR[employer] PHYSICIAN NOTES VITALS INFORMATION Vital Sign Triage Temp 98.8 Temp Route Pulse Rate 88 Respiratory Rate 18 Blood Pressure 177/ 80 LOCATION INFORMATION Arrival Nurse Unit Room Bed 10/12/2020 20:44:00 [facility] ED Waitroom ([facility]) 10/12/2020 20:47:59 [facility] ED 2 10/12/2020 23:55:12 [facility] ED Checkout ([facility]) MEDICAL INFORMATION Allergy Info: Benadryl; penicillin; [...]
--- OUTSIDE RECORDS SUMMARY | 2024-10-31 09:56 | XMS_ITS | Encounter Summary ---
Author Organization [employer] ([place], [place], [place], [place]) Address [address] [place] [address] Care Team Providers Care Parking Regulation Enforcement Officer Name Role Phone Unavailable Primary Care Provider Unavailabl e Encounter Details Date Type Department Care Team (Late st Contact Info) Description 10/13/2020 Transcribed Document [facility] [place] [facility] [place] [address] ProviderDaniela MD [address] [place] [address] [id number] Social History Tobacco Use Types Packs/Day Years Used Date Smoking Tobacco: Never Assessed Comments Unknown Sex and Gender Information Value Date Recorded Sex Assigned at Not on file Legal Sex Female 10:09 AM CDT Gender Identity Not on file Sexual Orientation Not on file documented as of this encounter Miscellaneous Notes * Cerner Conversion Note - Historical ProviderMD - 10/13/2020 3:55 AM CDT [facility] [place], [place] [phone] Name:Hayley Hanley Visit Date:10/12/2020 20:44:00 Emergency Department Care Providers: Physician: LEXUS BELTRAN MD Physician: Our doctors and staff appreciate your choice of [facility] for your emergency medical care. Read these instructions carefully. Please call us if you have any questions about your medical problem. [facility] Emergency Department [phone] [facility] Emergency Department [phone] [facility] Emergency Department [phone] Patient Education Materials Hayley Hanley has been given the following patient education [...] in ear, nose, and throat (ENT) problems (peoplesoft developer) or a provider who specializes in disorders [...] safe for you. General instructions ??? Take hbwv-kiy-cnwebei and prescription medicines only as told by [...] provider. Document Revised: 09/05/2018 Document Reviewed: 09/05/2018 Jybe Patient Education ? 2019 RESPACE. STROKE is an EMERGENCY Every Minute Counts [...] x-ray department to pick them up ? [facility] # [phone] ? [facility] # [phone] 1 [facility] # [phone] ? If you had cultures done and [...] quit. ? National Network of Tobacco Cessation SVtjojhnn7-250-NIYM-NOW 1 [place] [employer] 2 [place] [employer] 8-681127-1766 3 Viktor/Taqueria Jensen [phone] FINANCIAL INFORMATION ?? [facility] provides financial counseling to anyone who requests our services. ?? Emergency Physicians are independently contracted to provide your care. You will receive a bill for the care provided to you by the Physician and/or the Physician Postage Machine Operator. This will be a separat [...] away. If you cannot reach your doctor, retu rn to the Emergency Department. Patient Visit Summary [...] as recommended Patient Signature / or Patient Harness Worker Provider Signature Date Electronically signed by Cassidy Hood Conversion Manager Corporate Communications Aniyahner at 07/12/2022 11:38 AM CDT documented in this encounter Plan of Treatment Not on file documented as of this encounter Visit Diagnoses Not on filedocumented in this encounter
--- OUTSIDE RECORDS SUMMARY | 2024-10-31 09:56 | XMS_ITS | Data Portability ---
Author Organization MATTHEW - MICKY Machado [place] [facility] Address [address] [place] [address] Care Team Providers Care Oriental Rug Repairer Name Role Phone YONATAN REYES Primary Care Provider Assessment No assessment recorded. Plan of Treatment Reminders Order Date Submit Date Provider Last Modified By Organization Details Last Modified Time Details Appointments None recorded. Lab None recorded. Referral None recorded. Procedures None recorded. Surgeries None recorded. Imaging None recorded. Medication Orders ipratropium bromide 42 mcg (0.06 %) nasal spray 2021 [employer] [facility] [employer], [address] [place] [address], [address], 12:04:00 pantoprazol e 20 mg tablet,riri yed release 2021 [employer] [facility], [address] [place] [address], [address], 12:13:59 Xyzal 5 mg tablet 2021 [email or web address] [facility], [address] [place] [address], [address], 17:02:15 Patient TargetsNo targets recorded. Patient Instructions Encounter Date Encounter Id Patient Instructions Last Modified By Organization Details Last Modified Time 11/01/2019 [id number] sore throat: car e instructions [email or web address] Not available 11/01/2019 09:18:22 1. Laryngoscope full risks, complications, and benefits of in-office procedure have been thoroughly discussed. Understanding was expressed, informed consent given, and we will proceed with the discussed in-office treatment plan. 2. f/u as needed for any new or worsening symptoms [email or web address] Not available 11/01/2019 09:16:27 02/22/2022 [id number] 1. Left CRP with Filiberto. 2. Use saline nasal spray for congestion. 3. F/u prn. [email or web address] Not available 02/22/2022 11:15:37 02/25/2022 [id number] 1. RTO OVIDIO if positional vertigo returns [...] III MATTHEW ENT MD Jewel Kennedy [facility] Not available 02/25/2022 12:16:36 04/06/2022 [id number] 1. Flexible laryngoscopy performed - clinical photos obtained 2. Standard GERD and voice hygiene precautions reviewed. Avoid voice strain. 3. Increase daily water intake 4. Continue Omeprazole QD 5. NS spray, 2 sprays to each nostril BID 6. Rx - Ipratropium Doyline 0.06% spray, 2 sprays each nostril BID 7. Continue Xyzal QPM 8. F/U in [address] Ricks with repeat laryngoscopy for continued management of chronic hoarseness and possible vocal cord lesions/nodules. Patient may benefit from speech therapy evaluation if hoarseness persist. MATTHEW ENT MD Jewel Ricks [email or web address] Not available 04/06/2022 12:06:57 06/03/2022 [id number] 1. Laryngoscopy performed ; clinical photos obtained. [...] Time 023 Laryngoscopy Flex completed Svitlana Sosa [facility] 06/03/2022 15:35:14 022 Laryngoscopy Flex completed KATY COBURN, SMALL BRAKE FORM OPERATOR [address] [place], [address], [facility] 04/06/2022 12:01:06 020 Laryngoscopy Flex completed Sandy Stevens [facility] 11/01/2019 09:10:32 018 Audiogram completed PRICE COPELAND AUD [address] [place], [address], [facility] 09/26/2017 11:16:02 018 Audiogram completed Yonatan Brady [facility] 09/26/2017 11:37:38 018 Laryngoscopy Flex completed Yonatan Brady [facility] 09/26/2017 11:40:18 018 Audiogram completed LEX GARZA [address] [place], [address], [facility] 08/15/2017 10:00:39 018 Labyrinthotomy completed Karen Hernandez [facility] 08/15/2017 10:47:23 018 Labyrinthotomy completed Yonatan Brady [facility] 06/27/2017 13:19:31 018 Audiogram completed PINEDA DSOUZA, AUD [address] [place], [address], [facility] 05/02/2017 15:44:20 018 Labyrinthotomy completed ABRAN KENNEDY MD [address] [place], [address], [facility] 05/02/2017 17:56:29 018 Audiogram completed Yonatan Brady [facility] 05/02/2017 16:30:55 017 Tympanogram completed LEX BEAVERS [address] [place], [address], [facility] 03/14/2017 10:49:20 017 Audiogram completed RACHID JULIAN, AUD [address] [place], [address], [facility] 03/14/2017 10:49:18 017 Labyrinthotomy completed Yonatanyulia Brady [facility] 03/14/2017 11:54:38 017 Audiogram completed Yonatanyulia Brady [facility] 03/14/2017 11:46:24 017 Tympanometry completed Yonatan Jose Antonio [facility] 03/14/2017 11:46:16 017 [facility]otomy [facility] [place] [facility]2017 11:18:41 017 Ears/Nose/Throat Surgery completed [place] Brady [facility] 02/21/2017 10:50:55 017 Tympanogram completed PINEDA DSOUZA, AUD [address] [place], [address], [facility] 02/20/2017 16:51:54 017 Audiogram completed PINEDA DSOUZA AUD [address] [place], [address], [facility] 02/20/2017 16:51:52 017 Audiogram completed [place] Jose Antonio [facility] 02/14/2017 10:32:44 017 Tympanometry completed [place] Jose Antonio [facility] 02/14/2017 10:32:31 Appendectomy completed Yonatan Jose Antonio [facility] 02/13/2017 14:09:26 Cholecystectomy completed [place] Jose Antonio [facility] 02/13/2017 14:09:30 Imaging Results None recorded. Procedure Notes None recorded. Medical Equipment None Reported. Allergies Allergen ID Allergen Name Allergen Category Reaction Reaction Severity Criticality Documentation Date Start Date Code Code System Note Provider Name and Address Organization Details Recorded Time 565529 E-Mycin medicatio n rash Not available Not available 03/03/2016200660 8 RxNorm Yonatan bello [facility] 7 14:02:14 133441 Product containin g penicilli n (product) medicatio n itching Not available Not available 03/03/20162006 46924 8001 SNOMED Yonatan bello [facility] 7 14:02:18 822966 Livalo medicatio n respirato ry distress Not available Not available 03/03/20162011 08504 2 RxNorm Yonatan bello [facility] 7 14:02:16 116564 Benadryl medicatio n other Not available Not available 02/13/2017 7 RxNorm makes BP wm bruno when she got via IV. Yonatan bello [facility] 7 14:02:45 Medications Name Sig Start Date [...] completed Not Available Not Available Not Available [facility] 100,000 unit/gram topical powder active Not Available [...] in Arterial blood by Pulse oximetry Systolic And Diastolic Provider Name and Address Organization Details Last Updated DateTime 3 167.64 cm 35.5 kg/m2 94414.3 2 g 97.3 [degF] 75 /min 98 % 98 % 140/78 mm[Hg] Gela Gracia [facility] 3 15:15:05 Date Recorded Body height Body mass index (BMI) Body weight Body temperature Heart rate Systolic And Diastolic Provider Name and Address Organization Details Last Updated DateTime 0 167.64 cm 34.6 kg/m2 84080.4 7 g 97.2 [degF] 80 /min 137/69 mm[Hg] Elizabeth Arauz [facility] 0 08:15:21 Date Recorded Body weight Body mass index (BMI) Body height Oxygen saturation Oxygen saturation in Arterial blood by Pulse oximetry Heart rate Systolic And Diastolic Provider Name and Address Organization Details Last Updated DateTime 2 876373. 69 g 36.2 kg/m2 167.64 cm 97 % 97 % 76 /min 143/81 mm[Hg] Maddy Hull [facility] 2 09:51:06 Date Recorded Body height Body mass index (BMI) Body weight Oxygen saturation Oxygen saturation in Arterial blood by Pulse oximetry Heart rate Systolic And Diastolic Provider Name and Address Organization Details Last Updated DateTime 2 167.64 cm 36 kg/m2 025717. 1 g 97 % 97 % 73 /min 155/81 mm[Hg] Maddy Hull [facility] 2 09:54:25 Date Recorded Body height Body mass index (BMI) Body weight Body temperature Heart rate Systolic And Diastolic Provider Name and Address Organization Details Last Updated DateTime 2 167.64 cm 35.9 kg/m2 715493. 31 g 97 [degF] 74 /min 145/78 mm[Hg] Karen Hernandez [facility] 2 10:21:10 Social History Question Answer Notes LastModified by Organizat ion Details LastModified Time Tobacco Smoking Status Never Smoker [email or web address] 02/13/2017 14:08:12 What Was The Date Of Your Most Recent Tobacco Screening? 09/26/2017 Information n ot available 05/28/2019 Sex: Unknown Functional Status Question Answer Note LastModified by Organization D etails LastModified Time What is your level of alcohol consumption? None [email or web address] Information not available 02/13/2017 Mental Status None recorded. Family History Relationship Description Onset Age of this Age Resolved Age Notes LastModified by Organization Details LastModified Time Unspecified Relation Complication of anesthesia [email or web address] Not available 1 04/15/2016 14:02:57 Unspecified Relation Asthma [email or web address] Not available 09/2016 14:03:01 Unspecified Relation Family history of malignant neoplasm grandm other [email or web address] Not available 02/13/2017 14:03:28 Brother Diabetes mellitus [email or web address] Not available 14:03:19 Sister Diabetes mellitus [email or web address] Not available 14:03:19 Mother Diabetes mellitus and grandm other Not available 02/13/2017 14:03:19 Medical History Condition Response Anxiety Disorder Y Allergies/Hayfever Y Diabetes Y Bleeding Disorder Y Arthritis Y Hyperlipidemia Y Cancer N Asthma Y Depression Y Anemia Y Anesthesia Complications N Hypertension N Gynecological HistoryNo gynecological history recorded. Obstetrics History GPAL:G 0 P 0 0 0 0 Past Encounters Encounter ID Performer Location Encounter Start Date Encounter Closed Date Diagnosis/Indication Diagnosis SNOMED-CT Code Diagnosis ICD10 Code Diagnosis Note [id number] MD MATTHEW RAMIREZ [facility] [address] [place] [address] 02/14/2017 09:18:53 02/17/2017 11:52:05 Asymmetrical sensorineural hearing loss 300249191 H90.5 L>R Dysfunctio n of eustachian tube 74954167 H69.93 History of traumatic brain injury 9466399555 9100 Z87.593 [id number] LEX CISNEROS DE ENT [address] [place] [address] 02/14/2017 09:47:41 02/20/2017 16:53:26 Tinnitus of left ear 1202486056 106 H93.12 Dysfunctio n of eustachian tube 23518260 H69.93 Dizziness 646379988 R42 [id number] MD MATTHEW RAMIREZ ENT [address] [place] [address] 02/21/2017 09:38:41 02/21/2017 10:49:40 Asymmetrical sensorineural hearing loss 359908862 H90.5 L>R Dysfunctio n of eustachian tube 88788477 H69.93 History of traumatic brain injury 6432155579 9100 Z87.820 Sudden hearing loss 7947 1008 H91.22 Diabetes mellitus 380994 09 E11.9 [id number] MD MATTHEW RAMIREZ ENT [address] [place] [address] 03/14/2017 10:21:44 03/14/2017 12:55:42 Sudden hearing loss 14035524 H91.22 Asymmetric al sensorineural hearing loss 355955517 H90.5 L>R Dysfunctio n of eustachian tube 81629184 H69.93 History of traumatic brain injury 0985204835 9100 Z87.820 Diabetes mellitus 599891 09 E11.9 [id number] LEX BEAVERS DE ENT [address] [place] [address] 03/14/2017 10:32:17 03/14/2017 10:49:45 Sensorineural hearing loss of bilateral ears 830934597 H90.3 [id number] MD MATTHEW RAMIREZ ENT [address] [place] [address] 05/02/2017 13:43:29 05/02/2017 16:37:37 Sudden hearing loss 58995560 H91.22 Asymmetric al sensorineural hearing loss 115285135 H90.5 L>R Dysfunctio n of eustachian tube 59246970 H69.93 History of traumatic brain injury 0192924063 9100 Z87.820 Diabetes mellitus 274759 09 E11.9 Tinnitus of left ear 262 6913663 106 H93.12 [id number] LEX CISNEROS DE ENT [address] 7 05/02/2017 15:36:28 05/02/2017 16:22:06 Sensorineural hearing loss of bilateral ears 422457743 H90.3 [id number] MD MATTHEW RAMIREZ ENT [address] 7 06/01/2017 09:40:38 06/01/2017 11:36:44 Sudden hearing loss 43917538 H91.22 - Improved Asymmetric al sensorineural hearing loss 989674214 H90.5 - L>R Tinnitus of left ear 568 0015224 106 H93.12 - Improved Dysfunctio n of eustachian tube 45035765 H69.93 History of traumatic brain injury 8948185692 9100 Z87.820 Diabetes mellitus 715127 09 E11.9 [id number] ABRAN KENNEDY MD DE ENT [address] [place] [address] 06/27/2017 10:43:50 06/27/2017 14:12:24 Sudden hearing loss 60747922 H91.22 Asymmetric al sensorineural hearing loss 551638683 H90.5 - L>R Tinnitus of left ear 314 7965405 106 H93.12 Dysfunctio n of eustachian tube 75659117 H69.93 History of traumatic brain injury 3826979235 9100 Z87.820 Diabetes mellitus 409786 09 E11.9 [id number] ABRAN KENNEDY MD [facility] [address] [place] [address] 08/15/2017 08:47:42 08/15/2017 10:56:04 Sudden hearing loss 09711950 H91.22 - improving Asymmetric al sensorineural hearing loss 859387504 H90.5 - L>R, improving Tinnitus of left ear 711 5645146 106 H93.12 Dysfunctio n of eustachian tube 14909526 H69.93 History of traumatic brain injury 3204620451 9100 Z87.820 Diabetes mellitus 564200 09 E11.9 [id number] LEX GARZA DE ENT [address] [place] [address] 08/15/2017 09:43:32 08/15/2017 14:15:21 Asymmetrical sensorineural hearing loss 536865043 H90.5 [id number] ABRAN KENNEDY MD DE ENT [address] [place] [address] 09/26/2017 09:22:44 09/26/2017 11:39:25 Sudden hearing loss 52082597 H91.22 - improving Asymmetric al sensorineural hearing loss 524851976 H90.5 - L>R, improving Tinnitus of left ear 553 2124667 106 H93.12 Dysfunctio n of eustachian tube 08840373 H69.93 History of traumatic brain injury 2613719143 9100 Z87.820 Diabetes mellitus 027837 09 E11.9 Pain in throat 330224066 R07.0 tenderness at the left junction of hyoid and laryngeal cartilage Gastroesop hageal reflux disease without esophagitis 705178882 K21.9 [id number] LEX YANCEY DE ENT [address] [place] [address] 09/26/2017 11:03:14 09/26/2017 11:17:59 Sensorineural hearing loss of bilateral ears 924678065 H90.3 [id number] LEX GARZA DE ENT [address] [place] [address] 09/26/2017 11:53:31 09/28/2017 08:37:53 [id number] ABRAN KENNEDY MD DE [address]ART[address] [place] [address] 11/01/2019 07:51:31 11/01/2019 09:16:58 Pain in throat 115737698 R07.0 tenderness at the left junction of hyoid and laryngeal cartilage likely neuropathi c pain. This is been stable for 3-4 years and examinatio n is unremarkab le [id number] MD MATTHEW RAMIREZ [facility] [address] [place] [address] 02/22/2022 09:34:44 02/22/2022 14:53:59 Allergic rhinitis 99063643 J30.9 walnut trees, dogs, cats and dust mites Nasal congestion 4752545 0 R09.81 due to beta blockers Benign par oxysmal positional vertigo 783448342 H81.11 Acid reflux 318598320 K2 1.9 Chronic hoarseness 64310 00486 105 R49.0 History of traumatic brain injury 0896097888 9100 Z87.820 [id number] KATY COBURN APRN DE ENT [address] [place] [address] 02/25/2022 09:42:53 02/25/2022 15:54:31 Nasal congestion 09801204 R09.81 due to beta blockers Allergic rhinitis 299500 04 J30.9 walnut trees, dogs, cats and dust mites Benign par oxysmal positional vertigo 977946809 H81.11 - hx of Chronic hoarseness 59189 75682 105 R49.0 History of traumatic brain injury 7123888815 9100 Z87.820 Posterior rhinorrhea 758 95230 R09.82 Feeling of lump in throat 179674857 F45.8 Gastroesop hageal reflux disease 985356116 K21.9 - hx of [id number] PAULA PAIGE [facility] [address] [place] [address] 04/06/2022 10:09:48 04/06/2022 13:08:18 Allergic rhinitis 40897235 J30.9 walnut trees, dogs, cats and dust mites Nasal congestion 1242725 0 R09.81 due to beta blockers Chronic hoarseness 55797 22862 105 R49.0 - Flexible laryngosco py 04/06/22: TVCs have a slight weakness and reduction and in ab/adducti on. There is overcompen sation of the right false cord and arytenoid with phonation. There are 3 areas of very faint, white oval, barely visible lesions of the cords that are possible early nodular developmen t (2 left, 1 right). 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 There is overcompen sation of the right false cord and arytenoid with phonation. There are 3 areas of very faint, white oval, barely visible lesions of the cords that are possible early nodular developmen t (2 left, 1 right). [id number] MD MATTHEW MICHELE III ENT [address] [place] [address] 06/03/2022 14:59:59 06/06/2022 07:46:44 Chronic hoarseness 8268978476 105 R49.0 - Flexible laryngosco py 04/06/22: TVCs have a slight weakness and reduction and in ab/adducti on. There is overcompen sation of the right false cord and arytenoid with phonation. There are 3 areas of very faint, white oval, barely visible lesions of the cords that are possible early nodular developmen t (2 left, 1 right). 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 Nasal septal spur 624966 009 J34.89 Deviated nasal septum 12 9818317 J34.2 Posterior rhinorrhea 758 26950 R09.82 Health Concerns Section Related Observation LastModified by Organization Detai ls LastModified Time None Recorded Concern Status LastModified by Organization Details LastModified Time None Recorded Advance Directives Directive None Recorded Payers Insurance Date Sequence Insurance Name Policy Number Policy [place] Covered Member ID Camp Member ID Guarantor Name 06/06/2022 1 [facility] (MEDICARE REPLACEMENT/A DVANTAGE - PPO) [id number] Dior Hanley [id number] Dior Hanley Notes Date Note Type Note Provider Name and Address Organization Details Recorded Time 11/01/2019 text/html Dior is here today for an evaluation of left sided neck [...] good. She is currently on coumadin therapy. [place], [address], [facility] 11/01/2019 12:46:41 02/22/2022 text/html Dior visits [...] frequently. She does take acid reflux medication[place], [address], [facility] 02/22/2022 13:16:13 02/25/2022 text/html Dior Hanley returns today for continued management of [...] does take acid reflux medication. KATY COBURN, SMALL BRAKE FORM OPERATOR [address] [place], [address], [facility] 02/25/2022 12:16:41 04/06/2022 text/html Dior Hanley returns today for follow up of left BPPV, [...] pain in her right medial throat. KATY COBURN APRN [address] [place], [address], [facility] 04/06/2022 12:07:01 06/03/2022 text/html Dior returns today in follow up of chronic hoarseness, GERD, [...] stones intermittently. HUMERA RICKS III, MD [address] [place], [address], [facility] 06/03/2022 17:06:00 OBGyn Episode No OBEpisode recorded.
--- OUTSIDE RECORDS SUMMARY | 2024-10-31 09:56 | XMS_ITS | Encounter Summary ---
Author Organization [employer] ([place], [place], [place], [place]) Address [address] [place] [address] Care Team Providers Care Florist'S Decorator Name Role Phone Unavailable Primary Care Provider Unavailabl e Encounter Details Date Type Department Care Team (Late st Contact Info) Description 10/13/2020 Transcribed Document [facility] Family [facility] [place] [address] ProviderDaniela MD [address] [place] [address] [id number] Social History Tobacco Use Types Packs/Day Years Used Date Smoking Tobacco: Never Assessed Comments Unknown Sex and Gender Information Value Date Recorded Sex Assigned at Not on file Legal Sex Female 10:09 AM CDT Gender Identity Not on file Sexual Orientation Not on file documented as of this encounter Miscellaneous Notes * Cerner Conversion Note - Historical ProviderMD - 10/13/2020 12:49 AM CDT [facility] Triage ED Entered On: 10/12/2020 21:00 EDT Performed On: 10/12/2020 20:49 EDT by Suzy Montoya Emergency Man Assessment Triage Date/Time : 10/12/2020 20:49 EDT Suzy Montoya Rn - 10/12/2020 20:49 EDT DCP GENERIC CODE Tracking Acuity : 3 - Urgent [facility] Tracking Group : [place] Suzy Montoya Rn - 10/12/2020 20:49 EDT [...] Preferred Communication Mode : Verbal Languages : Spanish Child/Parent Domestic Concerns : None Threats of Suicide : No Suzy Montoya Rn - 10/12/2020 20:49 EDT Height and Weight Height Source : Stated Height Entry Format : [place] Height, Inches : 65 Inch(Converted to: 5 ft 5 Inch, 165.10 cm) Clinical Height : 165.1 cm Weight Source : Stated Type of Weight Measurement Est : [place] Weight, est lb : 220 lb Estimated Clinical Dosing Weight : 100 kg [place] Body Weight : 57 kg Body Surface [...] CouMADIN ; Simple Display Line: 8mg Mon, Tues, Wens, Fri , Sat ; Catalog Code: warfarin ; Order Dt/Tm: 05/27/2010 14:01:35 EST warfarin : warfarin ; Status: Documented ; Ordered As Mnemonic: CouMADIN 10 mg oral tablet ; Simple Display Line: Mon. and ; Catalog Code: warfarin ; Order [...]
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
--- OUTSIDE RECORDS SUMMARY | 2024-10-31 09:56 | XMS_ITS | Clinical Summary ---
Author Organization [facility] ([place], [place], [place], [place]) Address [address] [place] [address] Care Team Providers Care Golf Course Mechanic Name Role Phone Unavailable Primary Care [...] Treatment Not on file Insurance [place] [id number] [facility] MEDICARE ADVANTAGE
--- OUTSIDE RECORDS SUMMARY | 2024-10-31 09:56 | XMS_ITS | Encounter Summary ---
Author Organization [employer] ([place], [place], [place], [place]) Address [address] [place] [address] Care Team Providers Care Wireless Construction Manager Name Role Phone Unavailable Primary Care Provider Unavailabl e Encounter Details Date Type Department Care Team (Late st Contact Info) Description 10/13/2020 Transcribed Document [facility] [place] [facility] [place] [address] ProviderDaniela MD [address] [place] [address] [id number] Social History Tobacco Use Types Packs/Day Years Used Date Smoking Tobacco: Never Assessed Comments Unknown Sex and Gender Information Value Date Recorded Sex Assigned at Not on file Legal Sex Female 10:09 AM CDT Gender Identity Not on file Sexual Orientation Not on file documented as of this encounter Miscellaneous Notes * Cerner Conversion Note - Historical ProviderMD - 10/13/2020 3:38 AM CDT [facility] Emergency Department Depart Summary PERSON INFORMATION Name Dior Hanley Age 64 Years 1955 Sex Female Language PCP Marital Status Phone [phone] Visit Id Visit Reason N and/or V Specialty Enc Type Emergency Med Service Referred by Track Group [facility] Discharge Tracking Id [id number] Checkout Checkin 10/12/2020 20:44:00 Acuity 3 - Urgent [facility] Dispo Type Arrival 10/12/2020 20:44:00 Reg Status LOS 000 02:54 Address: ALEJANDRA KENT [address] [place] [address] POWERFORM PHYSICIAN NOTES VITALS INFORMATION Vital Sign Triage Temp 98.8 Temp Route Pulse Rate 88 Respiratory Rate 18 Blood Pressure 177/ 80 LOCATION INFORMATION Arrival Nurse Unit Room Bed 10/12/2020 20:44:00 [facility] ED Waitroom ([facility]) 10/12/2020 20:47:59 [facility] ED 2 MEDICAL INFORMATION Allergy Info: [...]
--- OUTSIDE RECORDS SUMMARY | 2024-10-31 09:56 | XMS_ITS | Referral Summary ---
Author Organization [employer] ([place], [place], [place], [place]) Address [address] [place] [address] Care Team Providers Care Tenter Frame Operator Name Role Phone Unavailable Primary Care [...] Treatment Not on file Insurance MATTHEW FITZGERALD [id number] [facility] MEDICARE ADVANTAGE
--- OUTSIDE RECORDS SUMMARY | 2024-10-31 09:56 | XMS_ITS | Encounter Summary ---
Author Organization [employer] ([place], [place], [place], [place]) Address [address] [place] [address] Care Team Providers Care Automotive Service Writer Name Role Phone Unavailable Primary Care Provider Unavailabl e Encounter Details Date Type Department Care Team (Late st Contact Info) Description 10/13/2020 Transcribed Document [facility] [place] [facility] [place] [address] ProviderDaniela MD [address] [place] [address] [id number] Social History Tobacco Use Types Packs/Day Years Used Date Smoking Tobacco: Never Assessed Comments Unknown Sex and Gender Information Value Date Recorded Sex Assigned at Not on file Legal Sex Female 10:09 AM CDT Gender Identity Not on file Sexual Orientation Not on file documented as of this encounter Miscellaneous Notes * Cerner Conversion Note - Historical ProviderMD - 10/13/2020 3:38 AM CDT [facility] ADDRESS [place], [place] [phone] Name:Hayley Hanley Visit Date:10/12/2020 20:44:00 Emergency Department Care Providers: Physician: LEXUS BELTRAN MD Physician: Our doctors and staff appreciate your choice of [facility] for your emergency medical care. Read these instructions carefully. Please call us if you have any questions about your medical problem. [facility] Emergency Department [phone] [facility] Emergency Department [phone] [facility] Emergency Department [phone] Patient Education Materials Hayley Hanley has been [...] in ear, nose, and throat (ENT) problems (machine cutter) or a provider who specializes in disorders [...] safe for you. General instructions ??? Take dokn-qpn-kbtdljn and prescription medicines only as told by [...] provider. Document Revised: 09/05/2018 Document Reviewed: 09/05/2018 [email or web address] Patient Education ? 2019 [employer]. STROKE is an EMERGENCY Every Minute Counts [...] x-ray department to pick them up ? [facility] # [phone] ? [facility] # [phone] 1 [facility] # [phone] ? If you had cultures done and [...] quit. ? National Network of Tobacco Cessation [id number]-SJLP-NOW 1 [employer] [employer] 2 [employer] Heart Association [phone] 3 Viktor/Taqueria Jensen [phone] FINANCIAL INFORMATION ?? [facility] provides financial counseling to anyone who requests our services. ?? Emergency Physicians are independently contracted to provide your care. You will receive a bill for the care provided to you by the Physician and/or the Physician Outsole Cementer Machine. This will be a separat e bill [...] to the ED as needed IDayan Connie G, have received a copy of these discharge instructions and acknowledge understanding of these instructions. . I understand that my condition may require more care and will arrange for further treatment as recommended Patient Signature / or Patient Partner Cco Provider Signature Date Date/Time 10/12/2020 23:38 [facility] [...] dosages of all your medications. IDayan Connie G, have received a copy of discharge home [...]
--- OUTSIDE RECORDS SUMMARY | 2024-10-31 09:56 | XMS_ITS | Encounter Summary ---
Author Organization [employer] ([place], [place], [place], [place]) Address [address] [place] [address] Care Team Providers Care Supervisor Liquid Yeast Name Role Phone Unavailable Primary Care Provider Unavailabl e Encounter Details Date Type Department Care Team (Late st Contact Info) Description 10/13/2020 Transcribed Document [facility] [place] [facility] [place] [address] ProviderDaniela MD [address] [place] [address] [id number] Social History Tobacco Use Types Packs/Day Years Used Date Smoking Tobacco: Never Assessed Comments Unknown Sex and Gender Information Value Date Recorded Sex Assigned at Not on file Legal Sex Female 10:09 AM CDT Gender Identity Not on file Sexual Orientation Not on file documented as of this encounter Miscellaneous Notes * Cerner Conversion Note - Historical ProviderMD - 10/13/2020 3:55 AM CDT [facility] ADDRESS [place], [place] [phone] Name:Hayley Hanley Visit Date:10/12/2020 20:44:00 Emergency Department Care Providers: Physician: LEXUS BELTRAN MD Physician: Our doctors and staff appreciate your choice of [facility] for your emergency medical care. Read these instructions carefully. Please call us if you have any questions about your medical problem. [facility] Emergency Department [phone] [facility] Emergency Department [phone] [facility] Emergency Department [phone] Patient Education Materials Hayley Hanley has been [...] in ear, nose, and throat (ENT) problems (strategic marketing manager) or a provider who specializes in disorders [...] safe for you. General instructions ??? Take caxk-eyd-ncxwugd and prescription medicines only as told by [...] provider. Document Revised: 09/05/2018 Document Reviewed: 09/05/2018 Dr. Tariff Patient Education ? 2019 [email or web address]. STROKE is an EMERGENCY Every Minute Counts [...] x-ray department to pick them up ? [facility] # [phone] ? [facility] # [phone] 1 [facility] # [phone] ? If you had cultures done and [...] quit. ? National Network of Tobacco Cessation NCkpduomn0-242-NELS-NOW 1 [place] [employer] Association 2 [place] Heart Association [phone] 3 Viktor/Taqueria Jensen [phone] FINANCIAL INFORMATION ?? [facility] provides financial counseling to anyone who requests our services. ?? Emergency Physicians are independently contracted to provide your care. You will receive a bill for the care provided to you by the Physician and/or the Physician Adult Educator. This will be a separat e bill [...] as recommended Patient Signature / or Patient Wire Saw Operator Provider Signature Date Date/Time 10/12/2020 23:55 [facility] [...]
--- OUTSIDE RECORDS SUMMARY | 2024-10-31 09:57 | XMS_ITS | Clinical Summary ---
[facility] Organization [facility] Address [address] [place] [address] Care Team Providers Care Marketing Administrator Name Role Phone Sierra Jerry APRN Primary Care Provid er Allergies Active Allergy Reactions Criticality Noted Date Comments Diphenhydramine Other (See Comments) Low 07/17/2018 Hypertension; only intolerant to IV form Cephalexin Itching 04/07/2023 Qfjlxqiutmj-Irhwcvtun-Dvi ant Unknown - Low Severity 04/07/2023 Insulin Glargine Unknown - Low Severity 04/07/2023 Lisinopril Cough Low 07/17/2018 Penicillins Itching Low 12/31/2017 Statins Rash,Myalgia Low 07/17/2018 Valacyclovir Unknown - Low Severity 04/07/2023 Medications montelukast (SINGULAIR) 10 MG tablet 8 Active metoprolol succinate XL (TOPROL XL) 25 MG 24 hr tablet 8 Active losartan (COZAAR) 50 MG tablet TK 1 T PO QD FOR 10 DAYS 0 9 Active flunisolide (NASALIDE) 25 MCG/ACT (0.025%) solution nasal spray flunisolide 8 Active albuterol sulfate HFA (PROAIR HFA) 108 (90 Base) MCG/ACT inhaler Every six hours 1 Active Multiple Vitamins-Mineral s (MULTIVITAMIN ADULT PO) Take by mouth. Activ e glucose blood test strip OneTouch Ultra Test strips Active Bioflavonoid Products (VITAMIN C PLUS) 1000 MG tablet Take by mouth. Active diazePAM (VALIUM) 5 MG tabletIndication s:Primary insomnia Take 1 tablet by mouth At Night As Needed for Anxiety (insomnia). 9 Active Insulin Lispro Prot & Lispro (HUMALOG MIX 75/25 KWIKPEN) (75-25) 100 UNIT/ML suspension pen-injector penIndications:T ype 2 diabetes mellitus treated with insulin Inject 20 Units under the skin into the appropriate area as directed 2 (Two) Times a Day With Meals. 10 pen 1 9 Active citalopram (CeleXA) 20 MG tablet Take 1 tablet by mouth Daily. 90 tablet 9 Active lansoprazole (PREVACID) 30 MG capsule Take 1 capsule by mouth 2 (Two) Times a Day. 180 capsule 3 9 Active warfarin (COUMADIN) 4 MG tablet 8 mg daily on Monday/ y/Monday 16 tablet 3 9 Active Additional Information Patient taking differently: 8 mg daily every other [id number] Mon and Mon, Reported on 06/18/2020 glucose blood (ONE TOUCH ULTRA TEST) test strip USE DIRECTED TO TEST THREE TIMES DAILY 100 each 2 0 Active Denosumab (PROLIA SC) Inject under the skin into the appropriate area as directed. Active Fluticasone-Umec lidin-Vilant (TRELEGY ELLIPTA IN) Inhale. Active Lantus SoloStar 100 UNIT/ML injection penIndications:T ype 2 diabetes mellitus treated with insulin INJECT 40 UNITS UNDER THE SKIN INTO THE APPROPRIATE AREA EVERY NIGHT DIRECTED 45 mL 2 1 Active meclizine (ANTIVERT) 25 MG tablet 1/2 or whole tablet orally at night as needed for vertigo for 90 days Active Xyzal Allergy 24HR 5 MG tablet Take by mouth Daily. Active Insulin Lispro, 1 Unit Dial, (HumaLOG KwikPen) 100 UNIT/ML solution pen-injector 14 units twice a day with meals Active Breztri Aerosphere 160-9-4.8 MCG/ACT aerosol inhaler Every 12 (Twelve) Hours. Active Tezepelumab-ekko 210 MG/1.91ML solution auto-injectorInd ications:Severe persistent asthma, unspecified whether complicated Inject 1.91 mL under the skin into the appropriate area as directed Every 28 (Twenty-Eight) Days. 1.91 mL 11 4 Active furosemide (LASIX) 20 MG tablet 1 tablet. 4 Active Trulicity 0.75 MG/0.5ML solution pen-injector ADMINISTER 0.75 MG UNDER THE SKIN ONCE A WEEK ON SAME DAY EACH WEEK 4 Active Active Problems Problem Noted Date Diagnosed Date Chronic persistent asthma 04/07/2023 Non-smoker 04/07/2023 Chronic anticoagulation (Coumadin) 04/07/2023 Chronic midline low back pain without sciatica 0 06/20/2020 Cervical spine pain 06/20/2020 History of cervical fracture 06/20/2020 Type 2 diabetes mellitus treated with insulin Essential hypertension 07/23/2018 Recurrent acute deep vein th rombosis (DVT) of both lower extremities 07/23/2018 GERD with esophagitis 07/23/2018 Vitamin D deficiency 07/23/2018 Vitamin B12 deficiency 07/23/2018 Coagulation disorder due to circulating anticoag ulants 07/23/2018 Primary insomnia 07/23/2018 Paroxysmal tachycardia 07/23/2018 Immunizations Immunization Administration Dates Next Due 31-influenza Vac Quardvalent Preservativ 02/05/2018,01/20/2017 Arexvy (RSV, Adults 60+ yrs) 11/30/2023 Fluzone (or Fluarix & Flulav al for VFC) >6mos 01/15/2019 Fluzone High-Dose 65+YRS 02/09/2023,12/10,12/31/2020,02/03 Hepatitis A 03/19/2018 Pneumococcal Conjugate 13-Va lent (PCV13) 12/26/2019 Pneumococcal Polysaccharide (PPSV23) 12/31/2020 Tdap 04/19/2019 Zoster, Unspecified 09/23/2009 Family History Medical History Relation Name Comments Blindness Brother due to diabetes Diabetes Brother Cancer Father Diabetes Father Heart disease Father COPD Mother Diabetes Mother Lung cancer Mother Diabetes Sister 1 Diabetes Sister 2 Relation Name Status Comments Brother Alive Father Mother Sister 1 Alive Sister 2 Alive Social History Tobacco Use Types Packs/Day Years [...] on file Sexual Orientation Not on file Last Filed Vital Signs Vital Sign Reading Time Taken Comments Blood Pressure 134/82 02/01/2024 12:49 PM EDT Pulse 88 02/01/2024 12:49 PM EDT Temperature 36.1 C (97 F) 02/01/2024 12:49 PM EDT Respiratory Rate 18 06/08/2023 11:50 AM EST Oxygen Saturation 95% 02/01/2024 12:49 PM EDT Inhaled Oxygen Concentration - - Weight 100 kg (221 lb) 02/01/2024 12:49 PM EDT Height 167.6 cm (5' 5.98 ) 02/01/2024 12:49 PM E DT Body Mass Index 35.69 02/01/2024 12:49 PM EDT Plan of Treatment Health Maintenance Due Date Last Done Comments MAMMOGRAM 1994 COLON CANCER SCREENING 5 YEA R SIGMOIDOSCOPY 12/20/1999 CT COLONOGRAPHY 12/20/1999 FECAL OCCULT BLOOD TEST 12/20/1999 FIT Testing (1 year) 12/20/1999 ZOSTER VACCINE (1 of 2) 2004 09/23/2009 HEMOGLOBIN A1C 02/28/2019 08/28/2018 ANNUAL WELLNESS VISIT 08/21/2019 08/20/2018, 018 DIABETIC EYE EXAM 01/22/2021 01/23/2020, (Patient-Reported (Performed Externally)) DIABETIC FOOT EXAM 02/18/2021 02/19/2020 URINE MICROALBUMIN-CREATININ E RATIO (uACR) 02/24/2021 02/25/2020 DXA SCAN 10/22/2021 10/23/2019 COVID-19 Vaccine (2023-2 5 season) 2023 INFLUENZA VACCINE 01/08/2025 02/09/2023, , 12/31/2020, Additional history exists COLONOSCOPY 07/09/2025 07/10/2015 COLOGUARD 08/17/2025 08/17/2022, 06/10/2019 COLORECTAL CANCER SCREENING 08/17/2025 TDAP/TD VACCINES (2 - Td or Tdap) 04/19/2029 020 HEPATITIS C SCREENING Completed 08/20/2018 Pneumococcal Vaccine 50+ Completed 021, 12/26/2019, 12/25/2019 Procedures Procedure Name Priority Date/Time Associated Diagnosis Comments POCT GLYCOSYLATED HEMOGLOBIN (HGB A1C) Routine 08/28/2018 8:28 AM EDT Type 2 diabetes mellitus treated with insulin Routine general medical examination at [facility] facility Screening for diabetes mellitus (DM) HEPATITIS C ANTIBODY Routine 08/20/2018 12:08 PM EDT from Last 3 Months or Most Recently Relevant to Health Maintenance Results * POC Glycosylated Hemoglobin (Hb A1C) (08/28/2018 8:28 AM EDT) Hemoglobin A1C 5.2 % [facility] Blood 08/28/2018 8:28 AM EDT Dayo Estes DO POINT OF CARE TEST ORDERABLES Final Result [facility]
[address] [place] [address], [place] [phone] * Hepatitis C Antibody (08/20/2018 12:08 PM EDT) Hep C Virus Ab <0.1 0.0 - 0.9 s/co ratio [facility] Comment: Negative: < 0.8 Indeterminate: 0.8 - 0.9 Positive: > 0.9 The CDC recommends that a positive HCV antibody result be followed up with a HCV Nucleic Acid Amplification test (328483). 08/20/2018 12:0 8 PM EDT 08/20/2018 Narrative [facility] (AMBULATORY) - 08/22/2018 5:35 AM EDT Performed at: [address] [place] [address] [id number] Paint Line Supervisor: Keaton Viramontes PhD, Phone: [phone] Patient Fasting: Y Dayo Estes DO LAB BLOOD ORDERABLES Final Re sult Performing Organization Address City/[facility] Co de Phone Number [facility] [address] [place] [address], [place] [phone] [facility] [address] [place] [address], [place] [phone] from Last 3 Months or Most Recently Relevant to Health Maintenance Insurance [id number] MEDICARE REPLACE [facility] Medicare Advantage GROUP PPO Care Teams Marketing Administrator Relationship Specialty Start Date End Date Sierra Jerry APRN [address] [place] [address] PCP - General Family Medicine 04/07/23
[2024-10-31 11:02] LABS: Anion Gap 11.5 mEq/L (5-15); Blood Urea Nitrogen 13 mg/dl (7-17); Calcium 9.7 mg/dl (8.4-10.2); Carbon Dioxide 26 mmol/L (22.0-30.0); Chloride 107 mmol/L (98-107); Creatinine,Serum 1.10 mg/dl (0.52-1.04); Estimated Glomerular Filt Rate 49 ml/min (>60); GFR (African American) 60 ML/MIN (>60); Glucose 99 mg/dl (74-100); Potassium 5.5 mmoL/L (3.5-5.1); Sodium 139 mmol/L (136-145)
[2024-10-31 11:21] LABS: 25-OH Vitamin D, Total 68.7 ng/mL (30-100)
== END 2024-10-31 23:59 | disposition home or self-care (01) ==
LOC: LAB 09:53
PROVIDERS: PCP Nurse Practitioner Family; Visit Provider Nurse Practitioner Family
DX: E11.22 Type 2 diabetes mellitus with diabetic chronic kidney disease (principal); I10 Essential (primary) hypertension; E87.5 Hyperkalemia; E67.3 Hypervitaminosis D
CPT/HCPCS: 36415; 80048; 82306; 82533

== ENCOUNTER 2024-11-04 08:42 | Outpatient (CLI) | payer MEDICARE, SELFPAY ==
--- OUTSIDE RECORDS SUMMARY | 2023-04-07 14:52 | XMS_ITS | Encounter Summary ---
[facility] Address [address] [place] [address] Care Team Providers Care Title I Assistant Name Role Phone Sierra Jerry APRN Primary Care Provid er Encounter Details Date Type Department Care Team (Late st Contact Info) Description 04/07/2023 1:52 PM EST Hospital Encounter [facility] PULMONARY & CRITICAL CARE MEDICINE [facility] [place] [address] Social History Tobacco Use Types [...] on filedocumented in this encounter Care Teams Title I Assistant Relationship Specialty Start Date End Date Sierra Jerry APRN [address] [place] [id number] PCP - General Family Medicine 04/07/23 documented as of this encounter
--- OUTSIDE RECORDS SUMMARY | 2024-09-25 06:27 | XMS_ITS ---
Author Organization [facility] Address [address] [place] [address] Care Team Providers Care Molded Parts Inspector Name Role Phone Sierra Jerry Primary Care Provider Results Component Value Reference Range Notes MRI : Lumbar Spine w/o contr ast Reviewed date:10/04/2024 02:30:25 PM Interpretation: Performing Lab: Notes/Report: REASON FOR VISIT mri order Encounters Encounter Location Date Provider Diagnosis [facility] [place] [address] [place] [address] 09/25/2024 Sierra Jerry Lumbago with sciatica, left side M54.42 Assessments Encounter Date Diagnosis (ICD Code) Assessment Notes Treatment Notes Treatment Clinical Notes Section Notes 09/25/2024 Lumbago with sciatica, left side (ICD-10 - M54.42) Plan Of Treatment No Information Progress Notes * Elenita CONTRERASOB: 5 (68 yo F)Acc No.[id number]:09/25/2024 Patient: Dior CUNNINGHAM :1955 A ge:68 Y S ex:Female Address:[address], [place], [address] Subjective: * Chief Complaints: * M ri order * Medical History: * Surgical History: * Hospitalization/Major Diagno stic Procedure: * Medications: Objective: * Vitals: * Physical Examination: Assessment: * Assessment: 1. L umbago with sciatica, left side - M54.42 Plan: * Treatment: * * Procedure Codes: * true * Date: Generated for Mirta lynne/Evaristo/Yuri on: 0 11/04/2024 08:44 AM EDT
--- OUTSIDE RECORDS SUMMARY | 2024-10-07 07:00 | XMS_ITS ---
Author Organization [facility] Address [address] [facility] [address] [place] [address] Care Team Providers Care Floriculturist Name Role Phone Sierra Jerry Primary Care Provider Allergies Allergen (clinical drug ingredient) Drug/Non Drug Allergy documented on EMR Reaction Allergy Type Onset Date Status IV BENADRYL (uncoded) elevated b/p Allergy Active KEFLEX (uncoded) itching Allergy Act chelsea fluticasone / umeclidinium / vilanterol Trelegy Ellipta voiding issues Drug Allergy Active insulin glargine Toujeo SoloStar Unknown Drug Allergy Active Substance with 6-twldqiz-1-methylgl utaryl-coenzyme A reductase inhibitor mechanism of action [...] review and pick correct strength-formulati on from Opality options. If intended option is not shown, [...] and drug interaction check* Active Dexcom G7 Inspection Machine Tender DIRECTED CONTINUOUS GLUCOSE MONITORING; Duration: 30 DAY(S) *Please review and pick correct strength-formulati on from Opality options. If intended option is not shown, [...] SUBCUTANEOUSLY ONCE A WEEK; Duration: 84 Active [employer] G7 Sensor 1 SENSOR DIRECTED FOR CONTINUOUS GLUCOSE MONITORING; Duration: 90 DAYS *Please review and pick correct strength-formulati on from Opality options. If intended option is not shown, discontinue and re-order from Quick Search* Active Vital Signs Temperature 97.5 degrees Fahrenheit 10/08/19 25 Blood pressure systolic 112 mm Hg 10/08/19 25 Blood pressure diastolic 52 mm Hg 025 Heart Rate 76 /min 10/07/2024 Height 64 in 10/07/2024 Weight 201.2 lbs 10/07/2024 BMI 34.53 kg/m2 10/07/2024 Encounters Encounter Location Date Provider Diagnosis [facility] [place] [address] [facility] [address] [place] [address] 10/07/2024 Sierra Jerry Type 2 diabetes mellitus [...] * Elenita CONTRERASOB: 5 (68 yo F)Acc No.[id number]:10/07/2024 Progress Notes Patient: Dior [place] Provider: PARVEZ Brock :1955 A ge:68 Y S ex:Female Date:10/07/2024 Address:[address], [place], [id number] Subjective: * Chief Complaints: * 1 . [...] nostril twice daily , Taking Dexcom G7 Inspection Machine Tender DIRECTED CONTINUOUS GLUCOSE MONITORING , Notes to Pharmacist: *Please review and pick correct strength-formulation from [employer] options. If intended option is not shown, [...] *Please review and pick correct strength-formulation from [employer]ulyzeran options. If intended option is not shown, [...] *Please review and pick correct strength-formulation from Opality options. If intended option is not shown, [...] Date: 10/07/2024 Generated for Mirta lynne/Evaristo/Yuri on: 11/04/2024 08:46 AM EDT History and Physical Notes * [...]
--- OUTSIDE RECORDS SUMMARY | 2024-10-31 05:00 | XMS_ITS ---
Author Organization [facility] Address [address] [facility] [address] [facility] [address] [place] [address] Care Team Providers Care Physicist Light And Optics Name Role Phone Sierra Jerry Primary Care Provider [phone] Allergies Allergen (clinical drug ingredient) Drug/Non Drug Allergy documented on EMR Reaction Allergy Type Onset Date Status IV BENADRYL (uncoded) elevated b/p Allergy Active KEFLEX (uncoded) itching Allergy Act chelsea fluticasone / umeclidinium / vilanterol Trelegy Ellipta voiding issues Drug Allergy Active insulin glargine Toujeo SoloStar Unknown Drug Allergy Active Substance with 1-klrbjle-8-methylgl utaryl-coenzyme A reductase inhibitor mechanism of action (substance) Statins itching Drug Allergy Active Penicillin rash Drug Allergy Active valacyclovir valACYclovir cough/wheeze Drug Allergy Active Results Component Value Reference Range Notes M-Basic Metabolic Panel (Not yet reviewed by provider) Interpretation: Performing Lab: Notes/Report: NA 139 136-145 mmol/L K 5.5 3.5-5.1 mmoL/L CL 107 98-107 mmol/L CO2 26 22.0-30.0 mmol/L GAP 11.5 5-15 mEq/L BUN 13 7-17 mg/dl CREATT 1.10 0.52-1.04 mg/dl GFRAA 60 >60 ML/MIN EGFR 49 >60 ml/min GLU 99 74-100 mg/dl CA 9.7 8.4-10.2 mg/dl M-Cortisol (Not yet reviewed by provider) Interpretation: Performing Lab: Notes/Report: YINKA 14.2 6.2-19.4 ug/dL Please Note: The reference interval and flagging for this test is for an AM collection. If this is a PM collection please use: Cortisol PM: 2.3-11.9 Performed at: [address] [id number] Airplane Pilot: Keaton Viramontes PhD, Phone: [phone] REASON FOR VISIT 6 Week follow up [...] review and pick correct strength-formulati on from [employer] options. If intended option is not shown, [...] review and pick correct strength-formulati on from [employer] options. If intended option is not shown, [...] and drug interaction check* Active Dexcom G7 Special Needs Librarian DIRECTED CONTINUOUS GLUCOSE MONITORING; Duration: 30 DAY(S) *Please review and pick correct strength-formulati on from [employer] options. If intended option is not shown, [...] 10/31/2024 Encounters Encounter Location Date Provider Diagnosis [facility] [place] [address] [place] [address] 10/31/2024 Sierra Jerry Type 2 diabetes mellitus [...] Treatment Pending Test Test Name Order Date M-Basic Metabolic Panel 10/31/2024 M-Vitamin D 25 Hydroxy 10/31/2024 M-Cortisol 10/31/2024 Next Appt Details Follow Up: 2 Months, Reason: Progress Notes * Elenita CONTRERASOB: 5 (68 yo F)Acc No.[id number]:10/31/2024 Progress Notes Patient: Dior CUNNINGHAM Provider: PARVEZ Brock :1955 A ge:68 Y S ex:Female Date:10/31/2024 Address:[address] [place], [id number] Subjective: * Chief Complaints: * 1 . [...] active: no. Travel outside [place]: no. 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 * Medications: T aking Reclast 5 [...] nostril twice daily , Taking Dexcom G7 Special Needs Librarian DIRECTED CONTINUOUS GLUCOSE MONITORING , Notes to Pharmacist: *Please review and pick correct strength-formulation from Dome9 Securityspan options. If intended option is not shown, [...] *Please review and pick correct strength-formulation from [employer] options. If intended option is not shown, [...] *Please review and pick correct strength-formulation from [employer] options. If intended option is not shown, [...] * G lucose 99 74-100 - mg/dl ?LAB: M-Cortisol (Collection Date & Time - 10/31/2024 10:03 AM)* Value Reference Range C ortisol 14.2 6.2-19.4 - ug/dL Clinical Notes: if labs are better today [...] * G lucose 99 74-100 - mg/dl ?LAB: M-Cortisol (Collection Date & Time - 10/31/2024 10:03 AM)* Value Reference Range C ortisol 14.2 6.2-19.4 - ug/dL 3.?High vitamin D level?LAB: M-Vitamin D 25 [...] * G lucose 99 74-100 - mg/dl ?LAB: M-Cortisol (Collection Date & Time - 10/31/2024 10:03 AM)* Value Reference Range C ortisol 14.2 6.2-19.4 - ug/dL * Follow Up: 2 Months * * Sign off status: Completed true * Provider: PARVEZ Brock Date: 10/31/2024 Generated for Travisi ng/Fashahabg/eTransmitting on: 11/04/2024 08:44 AM EDT History and Physical Notes * [...]
--- OUTSIDE RECORDS SUMMARY | 2024-11-04 08:45 | XMS_ITS | Encounter Summary ---
Author Organization [email or web address] ([place], [place], [place], [place]) Address [address] [place] [address] Care Team Providers Care Bale Sewer Name Role Phone Unavailable Primary Care Provider Unavailabl e Encounter Details Date Type Department Care Team (Late st Contact Info) Description 10/13/2020 Transcribed Document [facility] [place] [facility] [address] ProviderDanieal MD [address] [place] [address] [id number] Social History Tobacco Use Types Packs/Day Years Used Date Smoking Tobacco: Never Assessed Comments Unknown Sex and Gender Information Value Date Recorded Sex Assigned at Not on file Legal Sex Female 10:09 AM CDT Gender Identity Not on file Sexual Orientation Not on file documented as of this encounter Miscellaneous Notes * Cerner Conversion Note - Historical ProviderMD - 10/13/2020 3:38 AM CDT [facility] ADDRESS [place], [place] [phone] Name:Hayley Hanley Visit Date:10/12/2020 20:44:00 Emergency Department Care Providers: Physician: LEXUS BELTRAN MD Physician: Our doctors and staff appreciate your choice of [facility] for your emergency medical care. Read these instructions carefully. Please call us if you have any questions about your medical problem. [facility] [place] [facility] Emergency Department [phone] [facility] Emergency Department [phone] [facility] Emergency Department [phone] Patient Education Materials Hayley Hanley has been [...] ear, nose, and throat (ENT) problems (machine maintenance) or a provider who specializes in disorders [...] safe for you. General instructions ??? Take rkho-qpk-mrhafuj and prescription medicines only as told by [...] provider. Document Revised: 09/05/2018 Document Reviewed: 09/05/2018 [employer] Patient Education ? 2019 [employer]. STROKE is an EMERGENCY Every Minute Counts [...] x-ray department to pick them up ? [facility] [place] [facility] # [phone] ? [facility] # [phone] 1 [facility] # [phone] ? If you had cultures done and [...] quit. ? National Network of Tobacco Cessation [id number]-KDFK-NOW 1 [place] [employer] 2 [place] [phone] 3 Viktor/Taqueria Jensen [phone] FINANCIAL INFORMATION ?? [facility] provides financial counseling to anyone who requests our services. ?? Emergency Physicians are independently contracted to provide your care. You will receive a bill for the care provided to you by the Physician and/or the Physician Cutter Tender. This will be a separat e bill [...] as recommended Patient Signature / or Patient Drywall Contractor Provider Signature Date Date/Time 10/12/2020 23:38 [facility] [...]
--- OUTSIDE RECORDS SUMMARY | 2024-11-04 08:45 | XMS_ITS | Data Portability ---
Author Organization MATTHEW - MICKY Machado ALVORD CLOSED Address [address] [facility] [address] [place] [address] Care Team Providers Care Acquisitions Analyst Name Role Phone YONATAN REYES Primary Care Provider [phone] Assessment No assessment recorded. Plan of Treatment Reminders Order Date Submit Date Provider Last Modified By Organization Details Last Modified Time Details Appointments None recorded. Lab None recorded. Referral None recorded. Procedures None recorded. Surgeries None recorded. Imaging None recorded. Medication Orders ipratropium bromide 42 mcg (0.06 %) nasal spray 2021 [facility] [facility], [address] [place] [address], [address], 12:04:00 pantoprazol e 20 mg tablet,riri yed release 2021 G[employer] [facility], [address] [place] [address], [address], 12:13:59 Xyzal 5 mg tablet 2021 [email or web address] [facility], [address] [place] [address], [address], 17:02:15 Patient TargetsNo targets recorded. Patient Instructions Encounter Date Encounter Id Patient Instructions Last Modified By Organization Details Last Modified Time 11/01/2019 [id number] sore throat: car e instructions [email or web address] Not available 11/01/2019 09:18:22 1. Laryngoscope full risks, complications, and benefits of in-office procedure have been thoroughly discussed. Understanding was expressed, informed consent given, and we will proceed with the discussed in-office treatment plan. 2. f/u as needed for any new or worsening symptoms [email or web address] Not available 11/01/2019 09:16:27 02/22/2022 [id number] 1. Left CRP with Filiberto. 2. Use saline nasal spray for congestion. 3. F/u prn. [email or web address] Not available 02/22/2022 11:15:37 02/25/2022 [id number] 1. RTO OVIDIO if positional vertigo returns [...] LEVEL III MATTHEW ENT MD Jewel Kennedy [facility] Not available 02/25/2022 12:16:36 04/06/2022 [id number] 1. Flexible laryngoscopy performed - clinical photos obtained 2. Standard GERD and voice hygiene precautions reviewed. Avoid voice strain. 3. Increase daily water intake 4. Continue Omeprazole QD 5. NS spray, 2 sprays to each nostril BID 6. Rx - Ipratropium [place] 0.06% spray, 2 sprays each nostril BID 7. Continue Xyzal QPM 8. F/U in [address] Ricks with repeat laryngoscopy for continued management of chronic hoarseness and possible vocal cord lesions/nodules. Patient may benefit from speech therapy evaluation if hoarseness persist. MATTHEW ENT MD Jewel Ricks [email or web address] Not available 04/06/2022 12:06:57 06/03/2022 [id number] 1. Laryngoscopy performed ; clinical photos obtained. [...] Time 023 Laryngoscopy Flex completed Svitlana Sosa [facility] 06/03/2022 15:35:14 022 Laryngoscopy Flex completed KATY COBURN, BANK NOTE DESIGNER [address] [place], [address], [facility] 04/06/2022 12:01:06 020 Laryngoscopy Flex completed Sandy Stevens [facility] 11/01/2019 09:10:32 018 Audiogram completed PRICE COPELAND AUD [address] [place], [address], [facility] 09/26/2017 11:16:02 018 Audiogram completed Yonatan Brady [facility] 09/26/2017 11:37:38 018 Laryngoscopy Flex completed Yonatan Brady [facility] 09/26/2017 11:40:18 018 Audiogram completed LEX GARZA [address] [place], [address], [facility] 08/15/2017 10:00:39 018 Labyrinthotomy completed Karen Hernandez [facility] 08/15/2017 10:47:23 018 Labyrinthotomy completed Yonatan Brady [facility] 06/27/2017 13:19:31 018 Audiogram completed PINEDA DSOUZA, AUD [address] [place], [address], [facility] 05/02/2017 15:44:20 018 Labyrinthotomy completed ABRAN KENNEDY MD [address] [place], [address], [facility] 05/02/2017 17:56:29 018 Audiogram completed Yonatan Brady [facility] 05/02/2017 16:30:55 017 Tympanogram completed LEX BEAVERS [address] [place], [address], [facility] 03/14/2017 10:49:20 017 Audiogram completed RACHID JULIAN, AUD [address] [place], [address], [facility] 03/14/2017 10:49:18 017 Labyrinthotomy completed Yonatanyulia Brady [facility] 03/14/2017 11:54:38 017 Audiogram completed Yonatanyulia Brady [facility] 03/14/2017 11:46:24 017 Tympanometry completed Yonatan Jose Antonio [facility] 03/14/2017 11:46:16 017 [facility]yrinthotomy [facility] [place] [facility] 02/21/2017 11:18:41 017 Ears/Nose/Throat Surgery completed [place] Brady [facility] 02/21/2017 10:50:55 017 Tympanogram completed PINEDA DSOUZA, AUD [address] [place], [address], [facility] 02/20/2017 16:51:54 017 Audiogram completed PINEDA DSOUZA AUD [address] [place], [address], [facility] 02/20/2017 16:51:52 017 Audiogram completed [place] Jose Antonio [facility] 02/14/2017 10:32:44 017 Tympanometry completed [place] Jose Antonio [facility] 02/14/2017 10:32:31 Appendectomy completed Yonatan Jose [facility] 02/13/2017 14:09:26 Cholecystectomy completed [place] Jose Antonio [facility] 02/13/2017 14:09:30 Imaging Results None recorded. Procedure Notes None recorded. Medical Equipment None Reported. Allergies Allergen ID Allergen Name Allergen Category Reaction Reaction Severity Criticality Documentation Date Start Date Code Code System Note Provider Name and Address Organization Details Recorded Time 378153 E-Mycin medicatio n rash Not available Not available 03/03/2016200660 8 RxNorm Yonatan bello [facility] 7 14:02:14 936361 Product containin g penicilli n (product) medicatio n itching Not available Not available 03/03/20162006 68754 8001 SNOMED Yonatan bello [facility] 7 14:02:18 087570 Livalo medicatio n respirato ry distress Not available Not available 03/03/20162011 38767 2 RxNorm Yonatan bello [facility] 7 14:02:16 735564 Benadryl medicatio n other Not available Not available 02/13/2017 7 RxNorm makes BP wm bruno when she got via IV. Yonatan bello [facility] 7 14:02:45 Medications Name Sig Start [...] completed Not Available Not Available Not Available [facility] 100,000 unit/gram topical powder active [...] Updated DateTime 3 167.64 cm 35.5 kg/m2 74226.3 2 g 97.3 [degF] 75 /min 98 % 98 % 140/78 mm[Hg] Gela Gracia [facility] 3 15:15:05 Date Recorded Body height Body mass index (BMI) Body weight Body temperature Heart rate Systolic And Diastolic Provider Name and Address Organization Details Last Updated DateTime 0 167.64 cm 34.6 kg/m2 62194.4 7 g 97.2 [degF] 80 /min 137/69 mm[Hg] Elizabeth Arauz [facility] 0 08:15:21 Date Recorded Body weight Body mass index (BMI) Body height Oxygen saturation Oxygen saturation in Arterial blood by Pulse oximetry Heart rate Systolic And Diastolic Provider Name and Address Organization Details Last Updated DateTime 2 336477. 69 g 36.2 kg/m2 167.64 cm 97 % 97 % 76 /min 143/81 mm[Hg] Maddy Hull [facility] 2 09:51:06 Date Recorded Body height Body mass index (BMI) Body weight Oxygen saturation Oxygen saturation in Arterial blood by Pulse oximetry Heart rate Systolic And Diastolic Provider Name and Address Organization Details Last Updated DateTime 2 167.64 cm 36 kg/m2 856994. 1 g 97 % 97 % 73 /min 155/81 mm[Hg] Maddy Hull [facility] 2 09:54:25 Date Recorded Body height Body mass index (BMI) Body weight Body temperature Heart rate Systolic And Diastolic Provider Name and Address Organization Details Last Updated DateTime 2 167.64 cm 35.9 kg/m2 536797. 31 g 97 [degF] 74 /min 145/78 mm[Hg] Karen Hernandez [facility] 2 10:21:10 Social History Question Answer Notes LastModified by Organizat ion Details LastModified Time Tobacco Smoking Status Never Smoker [facility] 02/13/2017 14:08:12 What Was The Date Of Your Most Recent Tobacco Screening? 09/26/2017 Information n ot available 05/28/2019 Sex: Unknown Functional Status Question Answer Note LastModified by Organization D etails LastModified Time What is your level of alcohol consumption? None [email or web address] Information not available 02/13/2017 Mental Status None recorded. Family History Relationship Description Onset Age of this Age Resolved Age Notes LastModified by Organization Details LastModified Time Unspecified Relation Complication of anesthesia [email or web address] Not available 1 04/15/2016 14:02:57 Unspecified Relation Asthma [email or web address] Not available 09/2016 14:03:01 Unspecified Relation Family history of malignant neoplasm grandm other [email or web address] Not available 02/13/2017 14:03:28 Brother Diabetes mellitus [email or web address] Not available 14:03:19 Sister Diabetes mellitus [email or web address] Not available 14:03:19 Mother Diabetes mellitus and grandm other [email or web address] Not available 02/13/2017 14:03:19 Medical History Condition [...] SNOMED-CT Code Diagnosis ICD10 Code Diagnosis Note [id number] MD MATTHEW RAMIREZ ENT [address] [place] [address] 02/14/2017 09:18:53 02/17/2017 11:52:05 Asymmetrical sensorineural hearing loss 534106735 H90.5 L>R Dysfunctio n of eustachian tube 96800885 H69.93 History of traumatic brain injury 1800098844 9100 Z87.771 [id number] LEX CISNEROS [place] ENT [address] [place] [address] 02/14/2017 09:47:41 02/20/2017 16:53:26 Tinnitus of left ear 9116391417 106 H93.12 Dysfunctio n of eustachian tube 66151913 H69.93 Dizziness 025578957 R42 [id number] MD MATTHEW RAMIREZ ENT [address] [place] [address] 02/21/2017 09:38:41 02/21/2017 10:49:40 Asymmetrical sensorineural hearing loss 419945767 H90.5 L>R Dysfunctio n of eustachian tube 49828796 H69.93 History of traumatic brain injury 8717832534 9100 Z87.820 Sudden hearing loss 7947 1008 H91.22 Diabetes mellitus 211128 09 E11.9 [id number] MD MATTHEW RAMIREZ ENT [address] [place] [address] 03/14/2017 10:21:44 03/14/2017 12:55:42 Sudden hearing loss 58627283 H91.22 Asymmetric al sensorineural hearing loss 847803802 H90.5 L>R Dysfunctio n of eustachian tube 32550218 H69.93 History of traumatic brain injury 5311783488 9100 Z87.820 Diabetes mellitus 778745 09 E11.9 [id number] LEX BEAVERS [place] ENT [address] [place] [address] 03/14/2017 10:32:17 03/14/2017 10:49:45 Sensorineural hearing loss of bilateral ears 050181882 H90.3 [id number] MD MATTHEW RAMIREZ ENT [address] [place] [address] 05/02/2017 13:43:29 05/02/2017 16:37:37 Sudden hearing loss 93719824 H91.22 Asymmetric al sensorineural hearing loss 777422457 H90.5 L>R Dysfunctio n of eustachian tube 07121895 H69.93 History of traumatic brain injury 2649819550 9100 Z87.820 Diabetes mellitus 456633 09 E11.9 Tinnitus of left ear 994 7803407 106 H93.12 [id number] LEX CISNEROS [place] [address] 7 05/02/2017 15:36:28 05/02/2017 16:22:06 Sensorineural hearing loss of bilateral ears 553537544 H90.3 [id number] MD MATTHEW RAMIREZ ENT [address] 7 06/01/2017 09:40:38 06/01/2017 11:36:44 Sudden hearing loss 05000493 H91.22 - Improved Asymmetric al sensorineural hearing loss 805740128 H90.5 - L>R Tinnitus of left ear 108 6885491 106 H93.12 - Improved Dysfunctio n of eustachian tube 08119261 H69.93 History of traumatic brain injury 6288878106 9100 Z87.820 Diabetes mellitus 187622 09 E11.9 [id number] ABRAN KENNEDY MD [place] [address] [place] [address] 06/27/2017 10:43:50 06/27/2017 14:12:24 Sudden hearing loss 17188692 H91.22 Asymmetric al sensorineural hearing loss 506790918 H90.5 - L>R Tinnitus of left ear 300 3885373 106 H93.12 Dysfunctio n of eustachian tube 66894605 H69.93 History of traumatic brain injury 5320244172 9100 Z87.820 Diabetes mellitus 075599 09 E11.9 [id number] [facility] [address] [place] [address] 08/15/2017 08:47:42 08/15/2017 10:56:04 Sudden hearing loss 72445521 H91.22 - improving Asymmetric al sensorineural hearing loss 266736569 H90.5 - L>R, improving Tinnitus of left ear 650 0654287 106 H93.12 Dysfunctio n of eustachian tube 91606978 H69.93 History of traumatic brain injury 4657026714 9100 Z87.820 Diabetes mellitus 637442 09 E11.9 [id number] LEX GARZA [place] [address] [place] [address] 08/15/2017 09:43:32 08/15/2017 14:15:21 Asymmetrical sensorineural hearing loss 516576089 H90.5 [id number] ABRAN KENNEDY MD [place] [address] [place] [address] 09/26/2017 09:22:44 09/26/2017 11:39:25 Sudden hearing loss 49197402 H91.22 - improving Asymmetric al sensorineural hearing loss 795006628 H90.5 - L>R, improving Tinnitus of left ear 980 1999548 106 H93.12 Dysfunctio n of eustachian tube 49005965 H69.93 History of traumatic brain injury 4781410961 9100 Z87.820 Diabetes mellitus 406828 09 E11.9 Pain in throat 238326857 R07.0 tenderness at the left junction of hyoid and laryngeal cartilage Gastroesop hageal reflux disease without esophagitis 853754606 K21.9 [id number] LEX YANCEY [place] ENT [address] [place] [address] 09/26/2017 11:03:14 09/26/2017 11:17:59 Sensorineural hearing loss of bilateral ears 057811814 H90.3 [id number] LEX GARZA [place] ENT [address] [place] [address] 09/26/2017 11:53:31 09/28/2017 08:37:53 [id number] ABRAN KENNEDY MD [place] [address] [place] [address] 11/01/2019 07:51:31 11/01/2019 09:16:58 Pain in throat 687771868 R07.0 tenderness at the left junction of hyoid and laryngeal cartilage likely neuropathi c pain. This is been stable for 3-4 years and examinatio n is unremarkab le [id number] MD MATTHEW RAMIREZ [facility] [address] [place] [address] 02/22/2022 09:34:44 02/22/2022 14:53:59 Allergic rhinitis 11024435 J30.9 walnut trees, dogs, cats and dust mites Nasal congestion 1162606 0 R09.81 due to beta blockers Benign par oxysmal positional vertigo 375479073 H81.11 Acid reflux 096180170 K2 1.9 Chronic hoarseness 99737 45367 105 R49.0 History of traumatic brain injury 6742465545 9100 Z87.820 [id number] KATY COBURN APRN [place] [address] [place] [address] 02/25/2022 09:42:53 02/25/2022 15:54:31 Nasal congestion 27927616 R09.81 due to beta blockers Allergic rhinitis 782961 04 J30.9 walnut trees, dogs, cats and dust mites Benign par oxysmal positional vertigo 067051625 H81.11 - hx of Chronic hoarseness 40534 27467 105 R49.0 History of traumatic brain injury 5259468246 9100 Z87.820 Posterior rhinorrhea 758 41413 R09.82 Feeling of lump in throat 729017658 F45.8 Gastroesop hageal reflux disease 218615261 K21.9 - hx of [id number] PAULA PAIGE [facility] [address] [place] [address] 04/06/2022 10:09:48 04/06/2022 13:08:18 Allergic rhinitis 44334854 J30.9 walnut trees, dogs, cats and dust mites Nasal congestion 4405654 0 R09.81 due to beta blockers Chronic hoarseness 20791 85067 105 R49.0 - Flexible laryngosco py 04/06/22: TVCs have a slight weakness and reduction and in ab/adducti on. There is overcompen sation of the right false cord and arytenoid with phonation. There are 3 areas of very faint, white oval, barely visible lesions of the cords that are possible early nodular developmen t (2 left, 1 right). Posterior rhinorrhea 758 92102 R09.82 Gastroesop hageal reflux disease 816162519 K21.9 - hx of History of traumatic brain injury 8983765025 9100 Z87.820 Weakness o f vocal cord 135010880 R49.8 Lesion of vocal cord 301 617046 J38.3 - Flexible laryngosco py 04/06/22: TVCs have a slight weakness and reduction and in ab/adducti on. There is overcompen sation of the right false cord and arytenoid with phonation. There are 3 areas of very faint, white oval, barely visible lesions of the cords that are possible early nodular developmen t (2 left, 1 right). [id number] MD MATTHEW MICHELE III ENT [address] [place] [address] 06/03/2022 14:59:59 06/06/2022 07:46:44 Chronic hoarseness 1300315552 105 R49.0 - Flexible laryngosco py 04/06/22: TVCs have a slight weakness and reduction and in ab/adducti on. There is overcompen sation of the right false cord and arytenoid with phonation. There are 3 areas of very faint, white oval, barely visible lesions of the cords that are possible early nodular developmen t (2 left, 1 right). 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 Nasal septal spur 007657 009 J34.89 Deviated nasal septum 12 8777189 J34.2 Posterior rhinorrhea 758 79783 R09.82 Health Concerns Section Related Observation LastModified by Organization Detai ls LastModified Time None Recorded Concern Status LastModified by Organization Details LastModified Time None Recorded Advance Directives Directive None Recorded Payers Insurance Date Sequence Insurance Name Policy Number Policy Camp Covered Member ID Camp Member ID Guarantor Name 06/06/2022 1 [facility] (MEDICARE REPLACEMENT/A DVANTAGE - PPO) [id number] Dior Hanley [id number] Dior Hanley OBGyn Episode No OBEpisode recorded.
--- OUTSIDE RECORDS SUMMARY | 2024-11-04 08:45 | XMS_ITS | Encounter Summary ---
Author Organization [employer] ([place], [place], [place], [place]) Address [address] [place] [address] Care Team Providers Care Web Database Developer Name Role Phone Unavailable Primary Care Provider Unavailabl e Encounter Details Date Type Department Care Team (Late st Contact Info) Description 10/13/2020 Transcribed Document [facility] Family Medicine Counts include 234 beds at the [facility] [address] ProviderDaniela MD [address] [place] [id number] Social History Tobacco Use Types Packs/Day Years [...] On: 10/12/2020 20:49 EDT by Suzy Montoya [employer] Physician Assessment Triage Date/Time : 10/12/2020 20:49 EDT Suzy Montoya Rn - 10/12/2020 20:49 EDT DCP GENERIC CODE Tracking Acuity : 3 - Urgent [facility] Tracking Group : KELLY Paoli Suzy Montoya Rn - 10/12/2020 20:49 EDT [...] Preferred Communication Mode : Verbal Languages : Telugu Child/Parent Domestic Concerns : None Threats of Suicide : No Suzy Montoya Rn - 10/12/2020 20:49 EDT Height and Weight Height Source : Stated Height Entry Format : Newton Height, Inches : 65 Inch(Converted to: 5 ft 5 Inch, 165.10 cm) Clinical Height : 165.1 cm Weight Source : Stated Type of Weight Measurement Est : Newton Weight, est lb : 220 lb Estimated Clinical Dosing Weight : 100 kg Kamuela Body Weight : 57 kg Body Surface [...]
--- OUTSIDE RECORDS SUMMARY | 2024-11-04 08:45 | XMS_ITS | Encounter Summary ---
Author Organization [employer] ([place], [place], [place], [place]) Address [address] [place] [address] Care Team Providers Care Marble Cutter Name Role Phone Unavailable Primary Care Provider Unavailabl e Encounter Details Date Type Department Care Team (Late st Contact Info) Description 10/13/2020 Transcribed Document [facility] [place] [place] Family Medicine [facility] [place] [address] ProviderDaniela MD [address] [place] [id number] Social History Tobacco Use Types Packs/Day Years Used Date Smoking Tobacco: Never Assessed Comments Unknown Sex and Gender Information Value Date Recorded Sex Assigned at Not on file Legal Sex Female 10:09 AM CDT Gender Identity Not on file Sexual Orientation Not on file documented as of this encounter Miscellaneous Notes * Cerner Conversion Note - Historical ProviderMD - 10/13/2020 3:55 AM CDT [facility] ADDRESS [place], [place] [phone] Name:Hayley Hanley Visit Date:10/12/2020 20:44:00 Emergency Department Care Providers: Physician: LEXUS BELTRAN MD Physician: Our doctors and staff appreciate your choice of [facility] for your emergency medical care. Read these instructions carefully. Please call us if you have any questions about your medical problem. [facility] [phone] [facility] Emergency Department [phone] [facility] Emergency Department [phone] Patient Education Materials Hayley Hanley has been [...] in ear, nose, and throat (ENT) problems (diplomatic interpreter) or a provider who specializes in disorders [...] safe for you. General instructions ??? Take onil-xyu-rekcobq and prescription medicines only as told by [...] provider. Document Revised: 09/05/2018 Document Reviewed: 09/05/2018 [employer] Patient Education ? 2019 Armor5. STROKE is an EMERGENCY Every Minute Counts [...] x-ray department to pick them up ? [facility] # [phone] ? [facility] # [phone] 1 [facility] # [phone] ? If you had cultures done and [...] quit. ? National Network of Tobacco Cessation AKfzmctvu0-385-AEWN-NOW 1 [place] [employer] 2 [place] [employer] [phone] 3 Viktor/Taqueria Jensen [phone] FINANCIAL INFORMATION ?? [facility] provides financial counseling to anyone who requests our services. ?? Emergency Physicians are independently contracted to provide your care. You will receive a bill for the care provided to you by the Physician and/or the Physician Financial Investment Adviser. This will be a separat e bill [...] as recommended Patient Signature / or Patient Network Liaison Provider Signature Date Electronically signed by Cassidy Hood Conversion Staple Processing Machine Operator Aniyahner at 07/12/2022 11:38 AM CDT documented in this encounter Plan of Treatment Not on file documented as of this encounter Visit Diagnoses Not on filedocumented in this encounter
--- OUTSIDE RECORDS SUMMARY | 2024-11-04 08:45 | XMS_ITS | Encounter Summary ---
Author Organization [employer] ([place], [place], [place], [place]) Address [address] [place] [address] Care Team Providers Care Chemist Assistant Name Role Phone Unavailable Primary Care Provider Unavailabl e Encounter Details Date Type Department Care Team (Late st Contact Info) Description 10/13/2020 Transcribed Document [facility] [place] Family Medicine [facility] [place] [address] ProviderDaniela MD [address] [place] [address] [id number] Social History Tobacco Use Types Packs/Day Years Used Date Smoking Tobacco: Never Assessed Comments Unknown Sex and Gender Information Value Date Recorded Sex Assigned at Not on file Legal Sex Female 10:09 AM CDT Gender Identity Not on file Sexual Orientation Not on file documented as of this encounter Miscellaneous Notes * Cerner Conversion Note - Historical ProviderMD - 10/13/2020 3:38 AM CDT [facility] Emergency Department Depart Summary PERSON INFORMATION Name Dior Hanley Age 64 Years 1955 Sex Female Language PCP Marital Status Phone [phone] Visit Id Visit Reason N and/or V Specialty Enc Type Emergency Med Service Referred by Track Group [facility] Discharge Tracking Id [id number] Checkout Checkin 10/12/2020 20:44:00 Acuity 3 - Urgent [facility] Dispo Type Arrival 10/12/2020 20:44:00 Reg Status LOS 000 02:54 Address: ALEJANDRA KENT [address] [place] [address] POWERFORM PHYSICIAN NOTES VITALS INFORMATION Vital Sign Triage Temp 98.8 Temp Route Pulse Rate 88 Respiratory Rate 18 Blood Pressure 177/ 80 LOCATION INFORMATION Arrival Nurse Unit Room Bed 10/12/2020 20:44:00 [facility] ED Waitroom ([facility]) 10/12/2020 20:47:59 [facility] ED 2 MEDICAL INFORMATION Allergy Info: Benadryl; [...]
--- OUTSIDE RECORDS SUMMARY | 2024-11-04 08:46 | XMS_ITS | Encounter Summary ---
Author Organization [employer] ([place], [place], [place], [place]) Address [address] [place] [address] Care Team Providers Care Him Assistant Name Role Phone Unavailable Primary Care Provider Unavailabl e Encounter Details Date Type Department Care Team (Late st Contact Info) Description 10/13/2020 Transcribed Document [facility] [place] [facility] [place] [place] [address] ProviderDaniela MD [address] [place] [address] [id number] Social History Tobacco Use Types Packs/Day Years Used Date Smoking Tobacco: Never Assessed Comments Unknown Sex and Gender Information Value Date Recorded Sex Assigned at Not on file Legal Sex Female 10:09 AM CDT Gender Identity Not on file Sexual Orientation Not on file documented as of this encounter Miscellaneous Notes * Cerner Conversion Note - Historical ProviderMD - 10/13/2020 3:55 AM CDT [facility] Emergency Department Depart Summary PERSON INFORMATION Name Dior Hanley Age 64 Years 1955 Sex Female Language PCP Marital Status Phone [phone] Visit Id Visit Reason N and/or V Specialty Enc Type Emergency Med Service Referred by Track Group [facility] Discharge Tracking Id [id number] Checkout 10/12/2020 23:55:12 Checkin 10/12/2020 20:44:00 Acuity 3 - Urgent [facility] Dispo Type Arrival 10/12/2020 20:44:00 Reg Status LOS 000 03:11 Address: ALEJANDRA KENT [address] [place] [address] POWERFORMS PHYSICIAN NOTES VITALS INFORMATION Vital Sign Triage Temp 98.8 [address] Route Pulse Rate 88 Respiratory Rate 18 Blood Pressure 177/ 80 LOCATION INFORMATION Arrival Nurse Unit Room Bed 10/12/2020 20:44:00 [facility] ED Waitroom ([facility]) 10/12/2020 20:47:59 [facility] ED 2 10/12/2020 23:55:12 [facility] ED Checkout ([facility]) MEDICAL INFORMATION Allergy Info: Benadryl; penicillin; erythromycin [...]
--- OUTSIDE RECORDS SUMMARY | 2024-11-04 08:46 | XMS_ITS | Clinical Summary ---
[facility] Organization [facility] Address [address] [place] [address] Care Team Providers Care Field Crew Chief Name Role Phone Sierra Jerry APRN Primary Care Provid er Allergies Active Allergy Reactions Criticality Noted Date Comments Diphenhydramine Other (See Comments) Low 07/17/2018 Hypertension; only intolerant to IV form Cephalexin Itching 04/07/2023 Aepsfwnmvuc-Kgrxxtrgm-Orp ant Unknown - Low Severity 04/07/2023 Insulin [...] taking differently: 8 mg daily every other [id number] Mon and Mon, Reported on 06/18/2020 glucose [...] with insulin Routine general medical examination at [facility] facility Screening for diabetes mellitus (DM) HEPATITIS C ANTIBODY Routine 08/20/2018 12:08 PM EDT from Last 3 Months or Most Recently Relevant to Health Maintenance Results * POC Glycosylated Hemoglobin (Hb A1C) (08/28/2018 8:28 AM EDT) Hemoglobin A1C 5.2 % [facility] Blood 08/28/2018 8:28 AM EDT Dayo Estes DO POINT OF CARE TEST ORDERABLES Final Result [facility]
[address] [place] [address], [place] [phone] * Hepatitis C Antibody (08/20/2018 12:08 PM EDT) Hep C Virus Ab <0.1 0.0 - 0.9 s/co ratio [facility] Comment: Negative: < 0.8 Indeterminate: 0.8 - 0.9 Positive: > 0.9 The CDC recommends that a positive HCV antibody result be followed up with a HCV Nucleic Acid Amplification test ([id number]). 08/20/2018 12:0 8 PM EDT 08/20/2018 Narrative [facility] ([facility]) - 08/22/2018 5:35 AM EDT Performed at: [address] [place] [id number] Ripening Room Attendant: Keaton Viramontes PhD, Phone: [phone] Patient Fasting: Y Dayo Estes DO LAB BLOOD ORDERABLES Final Re sult Performing Organization Address City/[facility] Co de Phone Number [facility] [address] [place] [address], [place] [phone] [facility] [address] [place] [address], [place] [phone] from Last 3 Months or Most Recently Relevant to Health Maintenance Insurance [id number] MEDICARE [facility] Medicare [employer] PPO Care Teams Field Crew Chief Relationship Specialty Start Date End Date Sierra Jerry APRN [address] [place] [address] PCP - General Family Medicine 04/07/23
--- OUTSIDE RECORDS SUMMARY | 2024-11-04 08:46 | XMS_ITS | Encounter Summary ---
Author Organization [employer] ([place], [place], [place], [place]) Address [address] [place] [address] Care Team Providers Care Seam Sewer Name Role Phone Unavailable Primary Care Provider Unavailabl e Encounter Details Date Type Department Care Team (Late st Contact Info) Description 06/06/2022 Outside Orders [facility] Out[facility] Physical Therapy [address] [facility] [address] [place] [address] Oliverio Ricks MD [address] [place] [address] [address] [place] [address] Hoarseness (Primary Dx) Social History Tobacco Use [...]
--- OUTSIDE RECORDS SUMMARY | 2024-11-04 08:46 | XMS_ITS | Patient Health Record ---
Author Organization [facility] Address [address] [place] [address] Care Team Providers Care Recruitment Assistant Name Role Phone Claritza Sierra Primary Care Provider Radha Wharton Unavailable [phone] Sierra Guy Unavailable [phone] Migration, Provider Unavailable Unavailable Allergies Allergen (clinical drug ingredient) Drug/Non Drug Allergy documented on EMR Reaction Allergy Type Onset Date Status IV BENADRYL (uncoded) elevated b/p Allergy Active KEFLEX (uncoded) itching Allergy Act chelsea fluticasone / umeclidinium / vilanterol Trelegy Ellipta voiding issues Drug Allergy Active insulin glargine Toujeo SoloStar Unknown Drug Allergy Active Substance with 2-dlaompd-1-methylgl utaryl-coenzyme A reductase inhibitor mechanism of action (substance) Statins itching Drug Allergy Active Penicillin rash Drug Allergy Active valacyclovir valACYclovir cough/wheeze Drug Allergy Active Results Component Value Reference Range Notes Microalbumin (In-House) Reviewed date:03/21/2024 01:23:40 PM Interpretation:Normal Performing Lab: Notes/Report: Normal ALB 30mg CRE 300mg A:C <30mg/g DEXA Hip and Spine - Screeni ng Reviewed date:12/25/2023 06:03:09 PM Interpretation: Performing Lab: Notes/Report: CT Scan : Sinuses Reviewed date:03/29/2024 01:55:15 PM Interpretation: Performing Lab: Notes/Report: Urinalysis Reviewed date:03/21/2024 01:23:33 PM Interpretation: Performing Lab: Notes/Report: Color/Clarity yellow clear Leuk neg Nitrite neg Urobili 0.2 Protein neg pH 6.0 Blood neg Sp. Gr. 1.015 Ketone neg Bili neg Glucose neg M-Comprehensive Metabolic Pa hui Reviewed date:03/25/2024 03:01:30 [...] ALP 52 38-126 U/L M-Basic Metabolic Panel (Not yet reviewed by provider) Interpretation: Performing Lab: Notes/Report: NA 139 136-145 mmol/L K 5.5 3.5-5.1 mmoL/L CL 107 98-107 mmol/L CO2 26 22.0-30.0 mmol/L GAP 11.5 5-15 mEq/L BUN 13 7-17 mg/dl CREATT 1.10 0.52-1.04 mg/dl GFRAA 60 >60 ML/MIN EGFR 49 >60 ml/min GLU 99 74-100 mg/dl CA 9.7 8.4-10.2 mg/dl M-Hemoglobin A1C Reviewed date:03/25/2024 03:01:31 [...] HDL 41 40-60 mg/dl CHLHDL 5.5 1-3.5 M-Lipid Panel Reviewed date:09/24/2024 10:43:30 AM Interpretation: Performing Lab: Notes/Report: Patient Fasting? Y TRIG 152 30-150 mg/dl CHOL 214 140-200 mg/dl DLDL 107.92 100-129 mg/dL VLDL 30 0-40 mg/dL HDL 42 40-60 mg/dl CHLHDL 5.1 1-3.5 M-Cortisol (Not yet reviewed by provider) Interpretation: Performing Lab: Notes/Report: YINKA 14.2 6.2-19.4 ug/dL Please Note: The reference interval and flagging for this test is for an AM collection. If this is a PM collection please use: Cortisol PM: 2.3-11.9 Performed at: [facility] [id number] [employer]en [employer] Builder: Keaton Viramontes PhD, Phone: [phone] H-TVITD Reviewed date:10/31/2024 05:37:47 PM Interpretation: Performing Lab: Notes/Report: TVITD 68.7 30-100 ng/mL Deficient <20 ng/mL Insufficient 20-30 ng/mL Sufficient 30-100 ng/mL Potential Toxicity >100 ng/mL H-TVITD Reviewed date:12/15/2023 05:40:35 PM Interpretation: Performing [...] 583 239-931 pg/mL M-PHA INR Fingerstick Reviewed date:10/07/2024 [...] INDICATION INR RANGE X ray : Spines, Thoracic Spi ne [...] 37-170 ug/dL DTIBC 382 265-497 ug/dL IRONSAT 15.06674 15-55 % H-VITB12 Reviewed date:09/24/2024 09:50:35 AM Interpretation: Performing Lab: Notes/Report: VITB12 410 239-931 pg/mL M-Complete Blood Count Auto Diff Reviewed date:10/09/2024 [...] 0.02 M-Complete Blood Count Auto Diff Reviewed date:09/24/2024 [...] 0.2 0.0-0.4 K/mm3 BA# 0.1 0-0.2 K/mm3 M-Hemoglobin A1C Reviewed date:2023 08:27:44 AM Interpretation: Performing Lab: Notes/Report: HGBA1C 7.5 4.0-6.0 % < 6% Non-Diabetic Level < 7% Controlled Diabetic Level > 8% Poorly Controlled Diabetic Level M-Basic Metabolic Panel Reviewed date:10/09/2024 12:00:19 PM Interpretation: Performing Lab: Notes/Report: NA 132 136-145 mmol/L K 5.6 3.5-5.1 mmoL/L CL 99 98-107 mmol/L CO2 22 22.0-30.0 mmol/L GAP 16.6 5-15 mEq/L BUN 14 7-17 mg/dl CREATT 1.10 0.52-1.04 mg/dl GFRAA 60 >60 ML/MIN EGFR 49 >60 ml/min GLU 206 74-100 mg/dl CA 9.2 8.4-10.2 mg/dl M-PHA INR Fingerstick Reviewed date:02/13/2024 03:50:43 PM [...] PREVENTION OF SYSTEMIC EMBOLISM SECONDARY TO AMI M-Comprehensive Metabolic Pa hui Reviewed date:2023 08:27:38 [...] AGRATIO 1.1 1.1-1.8 ALP 54 38-126 U/L X ray : Spines, Lumbosacral Reviewed date:05/06/2024 03:25:25 PM Interpretation: Performing Lab: Notes/Report: Ultrasound : Liver Reviewed date:12/25/2023 06:12:19 PM Interpretation: Performing Lab: Notes/Report: Mammogram : [...] 0.2 0.0-0.4 K/mm3 BA# 0.0 0-0.2 K/mm3 MRI : Lumbar Spine w/o contr ast Reviewed date:10/04/2024 02:30:25 PM Interpretation: Performing Lab: Notes/Report: M-PHA INR Fingerstick Reviewed date:06/06/2024 12:35:57 PM [...] MG DAILY THEREAFTER. M-PHA INR Fingerstick Reviewed date:08/28/2024 05:04:27 PM [...] 2.5 - 3.5 VALVE; PREVENTION OF SYSTEMIC Medications Medication SIG (Take, Route, Frequency, Duration) [...] Duration: 90 days 08/14/2021 Active Dexcom G7 Business Agent DIRECTED CONTINUOUS GLUCOSE MONITORING; Duration: 30 DAY(S) *Please review and pick correct strength-formulati on from [employer] options. If intended option is not shown, [...] once a day; Duration: 90 days Active Precognatecom G7 Sensor 1 SENSOR DIRECTED FOR CONTINUOUS GLUCOSE MONITORING; Duration: 90 DAYS *Please review and pick correct strength-formulati on from [employer] options. If intended option is not shown, [...] review and pick correct strength-formulati on from [employer] options. If intended option is not shown, [...] Comme nts Adacel (Tdap) Unknown 04/19/2019 Administered Fluzone High Dose IM Intramuscular 02/09/2023 Administered Fluzone High Dose IM Intramuscular 01/06/2022 Administered Fluzone High Dose IM Intramuscular 02/04/2020 Administered Influenza (Fluzone)--Medicare only IM Intramuscular 01/20/2017 Administered Influenza-Fluzone 3+years (NON-MEDICARE) IM Intramuscular 02/05/2018 Administered Prevnar PCV-13 (Pneumococcal conjugate 13) IM Intramuscular 12/26/2019 Administered FLUZONE 6MO - OLDER IM Intramuscular 01/15/2019 Administer ed Influenza-Fluzone 3+years (NON-MEDICARE) IM Intramuscular 02/23/2015 Administered Influenza-Fluzone 3+years (NON-MEDICARE) IM Intramuscular 01/14/2016 Administered Fluvirin--Influenza vaccine 3+ year IM Intramuscular 02/21/2014 Administered Pneumovax 23 IM Intramuscular 12/31/2020 Administered Fluzone High Dose IM Intramuscular 12/31/2020 Administered Fluvirin--Influenza vaccine 3+ year IM Intramuscular 02/20/2013 Administered Arexvy IM Intramuscular 11/30/2023 Administered Fluzone High Dose IM Intramuscular 03/21/2024 Administered Problems Problem Type SNOMED Code ICD Code Onset Dates Problem Status W/U Status Risk Notes Problem Diabetic renal disease (928215978) Type 2 diabetes mellitus with diabetic chronic kidney disease (E11.22) Active confirmed Problem Hyperglycemia due to type 2 diabetes mellitus (383301615210676) Type 2 diabetes mellitus with hyperglycemia (E11.65) Active confirmed Problem Chronic pain (50425406) Other chronic pain (G89.29) Active confirmed Problem Chronic rhinitis (27371719) Chronic rhinitis (J31.0) Active confirmed Problem Sciatica (88355616) Lumbago with sciatica, left side (M54.42) Active confirmed Problem Chronic kidney disease stage 2 (592148539) Chronic kidney disease, stage 2 (mild) (N18.2) Active confirmed Problem Screening for malignant neoplasm of breast (734673851) Encounter for screening mammogram for malignant neoplasm of breast (Z12.31) Active confirmed Problem Mixed anxiety and depressive disorder (439724433) Depression with anxiety (F41.8) Active confirmed Problem Vitamin D deficiency (03557719) Vitamin D deficiency (E55.9) Active confirmed Problem Essential hypertension (16077301) Essential hypertension (I10) Active confirmed Problem Vitamin B12 deficiency (non anemic) (32982245) B12 deficiency (E53.8) Active confirmed Problem Restless legs syndrome (01897333) Restless leg syndrome (G25.81) Active confirmed Problem Allergic rhinitis (37280869) Chronic allergic rhinitis (J30.9) Active confirmed Problem Long-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 (394835016) long-term (current) use of insulin (Z79.4) Active confirmed Problem Chronic pain (89182250) Other chronic pain (G89.29) Active confirmed Problem Obese class II (928460834037641) BMI 38.0-38.9,adult (Z68.38) Active confirmed Problem Gastroesophageal reflux disease without esophagitis (536313918) Gastroesophageal reflux disease without esophagitis (K21.9) Active confirmed Problem Postmenopausal state (19314468) Post menopausal syndrome (Z78.0) Active confirmed Problem Obese class II (187803226393031) BMI 37.0-37.9, adult (Z68.37) Active confirmed Problem Obese class II (277959044697132) BMI 36.0-36.9,adult (Z68.36) Active confirmed Problem Arthritis of hip (87178594) Hip arthritis (M19.90) Active confirmed Problem Anxiety (39206622) Situational anxiety (F41.8) Active confirmed Problem Peripheral venous insufficiency (24020246) Venous (peripheral) insufficiency (I87.2) Active confirmed Problem Major depression, single episode (28479024) Depression, reactive (F32.9) Active confirmed Problem Localized, primary osteoarthritis of the pelvic region and thigh (901511301) 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) Active confirmed Problem Ventricular premature complex (disorder) (861770903) PVC (premature ventricular contraction) (I49.3) Active confirmed Problem Moderate persistent asthma (577792984) Asthma, moderate persistent (J45.40) Active confirmed Problem Recurrent deep vein thrombosis (DVT) of both lower extremities (I82.403) Active confirmed Problem Spondylosis without myelopathy (52163727) Arthritis of back (M47.9) Active confirmed Problem Obstructive sleep apnea syndrome (09696586) MARYAM on CPAP (G47.33) Active confirmed Problem Postmenopausal osteoporosis (929861226) Postmenopausal osteoporosis (M81.0) Active confirmed Problem Mixed hyperlipidemia (622980463) Mixed dyslipidemia (E78.2) Active confirmed Problem Moderate major depression, single episode (03114492) Current moderate episode of major depressive disorder without prior episode (F32.1) Active confirmed Problem History of iron deficiency (080349576) History of iron deficiency (Z86.39) Active confirmed Problem 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) Active confirmed Problem Anticoagulant therapy (383042167) Anticoagulated on Coumadin (Z79.01) Active confirmed Problem Arthropathy of right sacroiliac joint (37350800469195309 ) Arthropathy of right sacroiliac joint (M47.818) Active confirmed Problem Low back pain (614839972) Low back pain, unspecified (M54.50) Active confirmed Problem Arthritis of hip (15952499) Arthritis of hip (M16.10) Active confirmed Problem Hypervitaminosis D (56407721) High vitamin D level (E67.3) Active confirmed Problem Iron deficiency anemia (50205266) Iron deficiency anemia (D50.9) Problem resolved confirmed Vital Signs Heart Rate 68 /min 10/31/2024 Temperature 97.5 degrees Fahrenheit 10/31/2024 Oximetry 96 04/05/2024 O2 sat 96% RA. Blood pressure diastolic 56 mm Hg 10/31/2024 Height 64 in 10/31/2024 Blood pressure systolic 128 mm Hg 10/31/2024 Weight 206.4 lbs 10/31/2024 BMI 35.42 kg/m2 10/31/2024 Encounters Encounter Location Date Provider Diagnosis [facility] [address] [place] [address] 07/13/2024 Provider Migration Type 2 diabetes mellitus with diabetic chronic kidney disease E11.22 [facility] [address] [place] [address] 11/13/2023 Sierra Jerry Acute URI J06.9 [facility] [address] [place] [address] 11/30/2023 Sierra Jerry Chronic kidney disease, stage [...] screening mammogram Z12.31 and Postmenopausal osteoporosis M81.0 [facility] [address] [place] [address] 02/08/2024 Sierra Jerry Type 2 diabetes mellitus with diabetic chronic kidney disease E11.22 ; Subacute sinusitis, unspecified location J01.90 and Nasal congestion R09.81 [facility] [address] [place], [place] [address] 03/21/2024 Sierra Jerry Type 2 diabetes mellitus with diabetic chronic kidney disease E11.22 ; Right flank pain R10.9 ; Chronic rhinitis J31.0 ; Immunization(s) administered Z23 ; Recurrent deep vein thrombosis (DVT) of both lower extremities I82.403 and Essential hypertension I10 [facility] [address] [place] [address] 04/05/2024 Sierra Guy Acute recurrent frontal sinusitis J01.11 [facility] [address] [facility] [place], [place] [address] 05/02/2024 [facility] Low back pain, unspecified M54.50 ; Other chronic pain G89.29 and Type 2 diabetes mellitus with diabetic chronic kidney disease E11.22 [facility] [address] [place], [place] [address] 09/23/2024 [facility] [place] [facility] Type 2 diabetes mellitus with diabetic [...] side M54.42 and Other chronic pain G89.29 [facility] [address] [place], [place] [address] 10/07/2024 [facility] Type 2 diabetes mellitus with diabetic chronic kidney disease E11.22 ; Pre-syncope R55 ; Essential hypertension I10 ; History of iron deficiency Z86.39 and Hyperkalemia E87.5 [facility] [address] [place], [place] [address] 10/31/2024 [facility] Type 2 diabetes mellitus with diabetic chronic kidney disease E11.22 ; Essential hypertension I10 ; High vitamin D level E67.3 and Hyperkalemia E87.5 [facility] [address] [place] [address] 11/08/2023 [facility] [address] [facility] [address] [place] [address] 11/20/2023 [facility] [address] [facility] [place] [address] 12/02/2023 [facility] [address] [facility] [place] [address] 12/04/2023 Sierra Claritza [facility] [address] [place] [address] 2023 Sierra Claritza Elevated liver enzym es R74.8 [facility] [address] [place] [address] 01/22/2024 Sierra Claritza Type 2 diabetes mellitus with hyperglycemia E11.65 [facility] [address] [place] [address] 01/22/2024 Sierra Claritza [facility] [address] [place] [address] 01/23/2024 Sierra Claritza Type 2 diabetes mellitus with hyperglycemia E11.65 [facility] [address] [place] [address] 01/31/2024 Sierra Claritza [facility] [address] [place] [address], [place] [address] 03/11/2024 Sierra Claritza Type 2 diabetes mellitus with diabetic chronic kidney disease E11.22 [facility] [address] [place] [address] 03/25/2024 Sierra Claritza Type 2 diabetes mellitus with diabetic chronic kidney disease E11.22 [facility] [address] [place] [address] 05/02/2024 Sierra Claritza [facility] [address] [place] [address] 05/06/2024 Sierra Claritza Arthritis of back M47.9 [facility] [address] [place] [address] 05/08/2024 Sierra Claritza Mid back pain M54.9 [facility] [address] [place] [address] 05/23/2024 Sierra Claritza Type 2 diabetes mellitus with diabetic chronic kidney disease E11.22 [facility] [address] [place] [address] 06/27/2024 Sierra Claritza [facility] [address] [place], [place] [address] 07/15/2024 Sierra Jerry [facility] [address] [place] [address] 09/23/2024 Sierra Jerry [facility] [address] [place] [address] 09/24/2024 Sierra Jerry [facility] [address] [place] [address] 09/24/2024 Sierra Jerry Type 2 diabetes mellitus with diabetic chronic kidney disease E11.22 [facility] [address] [place], [place] [address] 09/25/2024 Sierra Jerry Lumbago with sciatic a, left side M54.42 [facility] [address] [place], [place] [address] 10/24/2024 Sierra Jerry Assessments Encounter Date Diagnosis (ICD [...] soreness, UA neg for blood today, monitor 05/02/2024 Other chronic pain (ICD-10 - G89.29) [...] and lowering basal insulin to avoid hypoglycemia 03/25/2024 Type 2 diabetes mellitus with diabetic [...] High vitamin D level (ICD-10 - E67.3) 10/07/2024 Essential hypertension (ICD-10 - I10) 09/23/2024 [...] Z86.39) 10/31/2024 Hyperkalemia (ICD-10 - E87.5) 10/07/2024 History of iron deficiency (ICD-10 - Z86.39) 10/07/2024 Hyperkalemia (ICD-10 - E87.5) 09/23/2024 Restless leg syndrome (ICD-10 - G25.81) [...] AUTO DIFF 11/26/2014 H-CBC with AUTO DIFF 06/20/2014 H-VITAMIN B12 07/24/2017 H-VITAMIN B6 (PYRIDOXAL PHOSPHAT 015 H-FERRITIN 11/26/2014 H-FERRITIN 07/24/2017 H-CMP 11/30/2015 H-CMP 07/24/2017 H-CMP 08/31/2015 H-CMP 03/20/2017 H-CMP 11/26/2014 H-CMP 06/20/2014 H-MAGNESIUM 06/20/2014 H-LIPID PANEL 11/26/2014 H-LIPID PANEL 07/24/2017 H-LIPID PANEL 02/17/2014 H-LIPID PANEL 03/20/2017 H-LIPID PANEL 08/31/2015 H-HGBA1C 11/26/2014 H-HGBA1C 08/31/2015 H-HGBA1C 07/24/2017 H-HGBA1C 11/30/2015 H-TSH 07/24/2017 H-TSH 06/20/2014 H-VIT D, 25-HYDROXY 07/24/2017 H-VIT D, 25-HYDROXY 08/31/2015 H-MICROALBUMIN URINE 08/31/2015 H-RADHA PROFILE 06/20/2014 H-ANTI PHOSPHOLIPID ANTIBODY 02/15/2012 Pulmonary Function Test- Complete 2020 H-VITAMIN C 06/20/2014 M-Complete Blood Count Auto Diff 024 M-Complete Blood Count Auto Diff 020 M-Complete Blood Count Auto Diff 019 M-D-Dimer 11/30/2020 M-Comprehensive Metabolic Panel 09/17/20 20 M-Comprehensive Metabolic Panel 12/28/19 19 M-Comprehensive Metabolic Panel 11/30/19 24 M-Basic Metabolic Panel 10/31/2024 M-Hemoglobin A1C 12/27/2018 M-Hemoglobin A1C 12/26/2019 M-Hemoglobin A1C 11/30/2023 M-Lipid Panel 11/30/2023 M-Lipid Panel 12/27/2018 M-Lipid Panel 12/26/2019 M-Vitamin B12 09/23/2024 M-Vitamin B12 07/09/2020 M-Vitamin B12 12/27/2018 M-Vitamin B12 02/09/2023 M-Vitamin B12 11/30/2023 M-Vitamin D 25 Hydroxy 11/30/2023 M-Vitamin D 25 Hydroxy 02/09/2023 M-Vitamin D 25 Hydroxy 12/27/2018 M-Vitamin D 25 Hydroxy 07/09/2020 M-Vitamin D 25 Hydroxy 10/31/2024 M-Vitamin D 25 Hydroxy 09/23/2024 M-Cortisol 10/31/2024 M-Iron and TIBC 09/23/2024 M-Microalb/Creat Ratio, Rand Ur 2 019 M-Microalb/Creat Ratio, Counts Include [facility] Ur 02/09/ 023 M-Microalb/Creat Ratio, Counts Include [facility] Ur 12/25/ 020 M-Microalb/Creat Ratio, Counts Include [facility] Ur 04/16/ 019 M-Microalb/Creat Ratio, Counts Include [facility] Ur 12/14/ 018 M-Microalb/Creat Ratio, Counts Include 234 [facility] Ur 024 Physical Therapy Eval and Treat 07/11/19 24 Physical Therapy Eval and Treat 05/06/19 25 Future Test Test Name Order Date H-BMP 07/09/2012 Insurance Providers Payer Name Payer Address Payer Phone Subscriber Number Group Number Insured Name Patient Relationship to Insured Coverage Start Date Coverage End Date [employer] MED[employer]ARE [address] [address] [place] [address] [id number] Dior Hanley Self - patient is the [...]
--- OUTSIDE RECORDS SUMMARY | 2024-11-04 08:46 | XMS_ITS | Referral Summary ---
Author Organization [email or web address] ([place], [place], [place], [place]) Address [address] [place] [address] Care Team Providers Care Retail And Promotions Coordinator Name Role Phone Unavailable Primary Care Provider [...] Treatment Not on file Insurance [place] [id number] [facility] MEDICARE ADVANTAGE
--- OUTSIDE RECORDS SUMMARY | 2024-11-04 08:46 | XMS_ITS | Clinical Summary ---
Author Organization [employer] ([place], [place], [place], [place]) Address [address] [place] [address] Care Team Providers Care Acoustical Material Worker Name Role Phone Unavailable Primary Care [...] Treatment Not on file Insurance [place] [id number] [facility] MEDICARE ADVANTAGE
--- OUTSIDE RECORDS SUMMARY | 2024-11-04 08:46 | XMS_ITS | Encounter Summary ---
Author Organization [employer] ([place], [place], [place], [place]) Address [address] [place] [address] Care Team Providers Care Lithographic Plate Maker Apprentice Name Role Phone Unavailable Primary Care Provider Unavailabl e Encounter Details Date Type Department Care Team (Late st Contact Info) Description 10/13/2020 Transcribed Document [facility] [place] [facility] [place] [address] ProviderDaniela MD [address] [place] [address] [phone] Social History Tobacco Use Types Packs/Day Years Used Date Smoking Tobacco: Never Assessed Comments Unknown Sex and Gender Information Value Date Recorded Sex Assigned at Not on file Legal Sex Female 10:09 AM CDT Gender Identity Not on file Sexual Orientation Not on file documented as of this encounter Miscellaneous Notes * Cerner Conversion Note - Historical ProviderMD - 10/13/2020 3:55 AM CDT [facility] ADDRESS [place], [place] [phone] Name:Hayley Hanley Visit Date:10/12/2020 20:44:00 Emergency Department Care Providers: Physician: LEXUS BELTRAN MD Physician: Our doctors and staff appreciate your choice of [facility] for your emergency medical care. Read these instructions carefully. Please call us if you have any questions about your medical problem. [facility] Emergency Department [phone] [facility] Emergency Department [phone] [facility] Emergency Department [phone] Patient Education Materials Hayley Hanley has been [...] in ear, nose, and throat (ENT) problems (credit officer) or a provider who specializes in disorders [...] safe for you. General instructions ??? Take [id number] and prescription medicines only as told by [...] provider. Document Revised: 09/05/2018 Document Reviewed: 09/05/2018 kingsky Patient Education ? 2019 edPULSE. STROKE is an EMERGENCY Every Minute Counts [...] x-ray department to pick them up ? [facility] # [phone] ? [facility] # [phone] 1 [facility] # [phone] ? If you had cultures done and [...] quit. ? National Network of Tobacco Cessation [id number]-TAUE-NOW 1 [employer] 2 [employer] [phone] 3 Viktor/Taqueria Jensen [phone] FINANCIAL INFORMATION ?? [facility] provides financial counseling to anyone who requests our services. ?? Emergency Physicians are independently contracted to provide your care. You will receive a bill for the care provided to you by the Physician and/or the Physician Manager Financial Services. This will be a separat e bill [...] as recommended Patient Signature / or Patient Heel Seat Fitter Machine Provider Signature Date Date/Time 10/12/2020 23:55 [facility] [...]
[2024-11-04 14:53] LABS: PHA INR Fingerstick 2.3 (0.9-1.1)
== END 2024-11-04 15:05 ==
LOC: ACC 08:42
PROVIDERS: PCP Internal Medicine Adolescent Medicine; Visit Provider Internal Medicine Adolescent Medicine
DX: Z79.01 Long term (current) use of anticoagulants (principal)
CPT/HCPCS: 85610; 99211; G0463

== ENCOUNTER 2024-11-06 09:44 | Outpatient (POV) | payer MEDICARE, SELFPAY ==
--- OUTSIDE RECORDS SUMMARY | 2023-04-07 14:52 | XMS_ITS | Encounter Summary ---
Author Organization [facility] Address [address] [place] [address] Care Team Providers Care Educational Audiologist Name Role Phone Sierra Jerry APRN Primary Care Provid er Encounter Details Date Type Department Care Team (Late st Contact Info) Description 04/07/2023 1:52 PM EST Hospital Encounter [facility] PULMONARY & CRITICAL CARE MEDICINE [facility] [place] [address] Social History Tobacco Use Types [...] on filedocumented in this encounter Care Teams Educational Audiologist Relationship Specialty Start Date End Date Sierra Jerry APRN [address] [place] [id number] PCP - General Family Medicine 04/07/23 documented as of this encounter
--- OUTSIDE RECORDS SUMMARY | 2024-09-25 06:27 | XMS_ITS ---
Author Organization [facility] Address [address] [facility] [address] [place] [address] Care Team Providers Care Wax Molder Name Role Phone Sierra Jerry Primary Care Provider Results Component Value Reference Range Notes MRI : Lumbar Spine w/o contr ast Reviewed date:10/04/2024 02:30:25 PM Interpretation: Performing Lab: Notes/Report: REASON FOR VISIT mri order Encounters Encounter Location Date Provider Diagnosis [facility] [address] [facility] [address] [place], [place] [address] 09/25/2024 Sierra Jerry Lumbago with sciatica, left side M54.42 Assessments Encounter Date Diagnosis (ICD Code) Assessment Notes Treatment Notes Treatment Clinical Notes Section Notes 09/25/2024 Lumbago with sciatica, left side (ICD-10 - M54.42) Plan Of Treatment Next Appt Details Provider Name:Sierra Magallanes ce, 12/05/2024 10:15:00 AM, [address], [address], [place], [place], [address], Progress Notes * Elenita CONTRERASOB: (68 yo F)Acc No.[id number]:09/25/2024 Patient: Farzana STEVENSONEmeliaDior :1955 A ge:68 Y S ex:Female Address:[address] [place] [address] Subjective: * Chief Complaints: * M ri order * Medical History: * Surgical History: * Hospitalization/Major Diagno stic Procedure: * Medications: Objective: * Vitals: * Physical Examination: Assessment: * Assessment: 1. L umbago with sciatica, left side - M54.42 Plan: * Treatment: * * Procedure Codes: * true * Date: Generated for Mirta lynne/Evaristo/Ingasmfrancesca on: 0 11/06/2024 09:46 AM EDT
--- OUTSIDE RECORDS SUMMARY | 2024-10-07 07:00 | XMS_ITS ---
Author Organization [facility] Address [address] [place] [address] Care Team Providers Care Law Examiner Name Role Phone Sierra Jerry Primary Care Provider [phone] Allergies Allergen (clinical drug ingredient) Drug/Non Drug Allergy documented on EMR Reaction Allergy Type Onset Date Status IV BENADRYL (uncoded) elevated b/p Allergy Active KEFLEX (uncoded) itching Allergy Act chelsea fluticasone / umeclidinium / vilanterol Trelegy Ellipta voiding issues Drug Allergy Active insulin glargine Toujeo SoloStar Unknown Drug Allergy Active Substance with 9-ogddlnb-7-methylgl utaryl-coenzyme A reductase inhibitor mechanism of action [...] review and pick correct strength-formulati on from G3 options. If intended option is not shown, [...] and drug interaction check* Active Dexcom G7 Agronomy Teacher DIRECTED CONTINUOUS GLUCOSE MONITORING; Duration: 30 DAY(S) *Please review and pick correct strength-formulati on from G3 options. If intended option is not shown, [...] SUBCUTANEOUSLY ONCE A WEEK; Duration: 84 Active [employer] G7 Sensor 1 SENSOR DIRECTED FOR CONTINUOUS GLUCOSE MONITORING; Duration: 90 DAYS *Please review and pick correct strength-formulati on from G3 options. If intended option is not shown, discontinue and re-order from Quick Search* Active Vital Signs Temperature 97.5 degrees Fahrenheit 10/08/19 25 Blood pressure systolic 112 mm Hg 10/08/19 25 Blood pressure diastolic 52 mm Hg 025 Heart Rate 76 /min 10/07/2024 Height 64 in 10/07/2024 Weight 201.2 lbs 10/07/2024 BMI 34.53 kg/m2 10/07/2024 Encounters Encounter Location Date Provider Diagnosis [facility] [place] [address] [facility] [address] [place] [address] 10/07/2024 Sierra Jerry Type 2 diabetes mellitus [...] pending results, Reason: Provider Name:Sierra Magallanes ce, 12/05/2024 10:15:00 AM, [address], [address], [place], [address], Progress Notes * Elenita CONTRERASOB: 5 (68 yo F)Acc No.[id number]:10/07/2024 Progress Notes Patient: Dior [place] Provider: PARVEZ Brock :1955 A ge:68 Y S ex:Female Date:10/07/2024 Address:[facility] [address], [facility] [id number] Subjective: * Chief Complaints: * 1 . [...] nostril twice daily , Taking Dexcom G7 Agronomy Teacher DIRECTED CONTINUOUS GLUCOSE MONITORING , Notes to [...] *Please review and pick correct strength-formulation from G3 options. If intended option is not shown, [...] *Please review and pick correct strength-formulation from G3 options. If intended option is not shown, [...] christi madeThis lab was reviewed by Renita Oilvera on 10/09/2024 at 12:00 PM EDT 3.?History [...] 10/07/2024 Generated for Mirta lynne/Evaristo/eTransmitting on: 0 11/06/2024 09:47 AM EDT History and Physical Notes * [...]
--- OUTSIDE RECORDS SUMMARY | 2024-10-31 05:00 | XMS_ITS ---
Author Organization [facility] Address [address] [facility] [address] [place] [address] Care Team Providers Care Mold Technician Name Role Phone Sierra Jerry Primary Care Provider [phone] Allergies Allergen (clinical drug ingredient) Drug/Non Drug Allergy documented on EMR Reaction Allergy Type Onset Date Status IV BENADRYL (uncoded) elevated b/p Allergy Active KEFLEX (uncoded) itching Allergy Act chelsea fluticasone / umeclidinium / vilanterol Trelegy Ellipta voiding issues Drug Allergy Active insulin glargine Toujeo SoloStar Unknown Drug Allergy Active Substance with 5-jwlhrrn-5-methylgl utaryl-coenzyme A reductase inhibitor mechanism of action [...] please use: Cortisol PM: 2.3-11.9 Performed at: [address] [id number] Supervisor [place]: Keaton Viramontes PhD, Phone: [phone] REASON FOR VISIT 6 Week follow up [...] review and pick correct strength-formulati on from Zwittle options. If intended option is not shown, [...] review and pick correct strength-formulati on from Zwittle options. If intended option is not shown, [...] and drug interaction check* Active Dexcom G7 Manager Ship DIRECTED CONTINUOUS GLUCOSE MONITORING; Duration: 30 DAY(S) *Please review and pick correct strength-formulati on from InLive Interactivean options. If intended option is not shown, [...] 10/31/2024 Encounters Encounter Location Date Provider Diagnosis [facility] [place] [address] [facility] [address] [facility] [address] [facility] [address] [place] [address] 10/31/2024 Sierra Jerry Type 2 diabetes mellitus [...] Appt Details Follow Up: 2 Months, Reason: Provider Name:Sierra Magallanes ce, 12/05/2024 10:15:00 AM, [address] [facility] [address] [facility], [address], [place], [address], Progress Notes * Elenita CONTRERASOB: (68 yo F)Acc No.[id number]:10/31/2024 Progress Notes Patient: Dior CUNNINGHAM Provider: PARVEZ Brock :1955 A ge:68 Y S ex:Female Date:10/31/2024 Address:[address] [id number] Subjective: * Chief Complaints: * [...] no. Travel outside [place]: no. 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 * Medications: T aking Reclast 5 [...] nostril twice daily , Taking Dexcom G7 Manager Ship DIRECTED CONTINUOUS GLUCOSE MONITORING , Notes to Pharmacist: *Please review and pick correct strength-formulation from Soldspan options. If intended option is not shown, [...] *Please review and pick correct strength-formulation from Zwittle options. If intended option is not shown, [...] *Please review and pick correct strength-formulation from Zwittle options. If intended option is not shown, [...] PARVEZ Brock Date: 10/31/2024 Generated for Mirta lynne/Evaristo/Yuri on: 11/06/2024 09:46 AM EDT History and Physical Notes * [...]
--- OUTSIDE RECORDS SUMMARY | 2024-11-06 09:46 | XMS_ITS | Encounter Summary ---
Author Organization [employer] ([place], [place], [place], [place]) Address [address] [place] [address] Care Team Providers Care Cook Taco Name Role Phone Unavailable Primary Care Provider Unavailabl e Encounter Details Date Type Department Care Team (Late st Contact Info) Description 10/13/2020 Transcribed Document [facility] [place] [facility] [place] [address] ProviderDaniela MD [address] [place] [address] [id number] Social History Tobacco Use Types Packs/Day Years Used Date Smoking Tobacco: Never Assessed Comments Unknown Sex and Gender Information Value Date Recorded Sex Assigned at Not on file Legal Sex Female 10:09 AM CDT Gender Identity Not on file Sexual Orientation Not on file documented as of this encounter Miscellaneous Notes * Cerner Conversion Note - Historical ProviderMD - 10/13/2020 3:55 AM CDT [facility] ADDRESS [place], [place] [phone] Name:Hayley Hanley Visit Date:10/12/2020 20:44:00 Emergency Department Care Providers: Physician: LEXUS BELTRAN MD Physician: Our doctors and staff appreciate your choice of [facility] for your emergency medical care. Read these instructions carefully. Please call us if you have any questions about your medical problem. [facility] Emergency Department [phone] [facility] Emergency Department [phone] [facility] Emergency Department [phone] Patient Education Materials Hayley Hanley has been [...] in ear, nose, and throat (ENT) problems (abstract maker) or a provider who specializes in disorders [...] safe for you. General instructions ??? Take zpeb-imm-ddydijb and prescription medicines only as told by [...] provider. Document Revised: 09/05/2018 Document Reviewed: 09/05/2018 [employer] Patient Education ? 2019 C$ cMoney. STROKE is an EMERGENCY Every Minute Counts [...] x-ray department to pick them up ? [facility] # [phone] ? [facility] # [phone] 1 [facility] # [phone] ? If you had cultures done and [...] quit. ? National Network of Tobacco Cessation CUzdffgys1-578-SFPZ-NOW 1 [place] [employer] Association 2 [place] Heart Association [phone] 3 Viktor/Taqueria Jensen [phone] FINANCIAL INFORMATION ?? [facility] provides financial counseling to anyone who requests our services. ?? Emergency Physicians are independently contracted to provide your care. You will receive a bill for the care provided to you by the Physician and/or the Physician Fraud Analyst. This will be a separat e bill [...] as recommended Patient Signature / or Patient Physical Education Aide Provider Signature Date documented in this encounter Plan of Treatment Not on file documented as of this encounter Visit Diagnoses Not on filedocumented in this encounter
--- OUTSIDE RECORDS SUMMARY | 2024-11-06 09:46 | XMS_ITS | Encounter Summary ---
Author Organization [employer] ([place], [place], [place], [place]) Address [address] [place] [address] Care Team Providers Care Gyroscopic Instrument Tester Name Role Phone Unavailable Primary Care Provider Unavailabl e Encounter Details Date Type Department Care Team (Late st Contact Info) Description 10/13/2020 Transcribed Document [facility] [place] [address] ProviderDaniela MD [address] [place] [address] [id number] Social History Tobacco Use Types Packs/Day Years [...] On: 10/12/2020 20:49 EDT by Suzy Montoya Public Affairs Manager Assessment Triage Date/Time : 10/12/2020 20:49 EDT Suzy Montoya Rn - 10/12/2020 20:49 EDT DCP GENERIC CODE Tracking Acuity : 3 - Urgent [facility] Tracking Group : KELLY [place] Suzy Montoya Rn - 10/12/2020 20:49 EDT [...] Preferred Communication Mode : Verbal Languages : Indonesian Child/Parent Domestic Concerns : None Threats of Suicide : No Suzy Montoya Rn - 10/12/2020 20:49 EDT Height and Weight Height Source : Stated Height Entry Format : [place] Height, Inches : 65 Inch(Converted to: 5 ft 5 Inch, 165.10 cm) Clinical Height : 165.1 cm Weight Source : Stated Type of Weight Measurement Est : [place] Weight, est lb : 220 lb Estimated Clinical Dosing Weight : 100 kg [place] Body Weight : 57 kg Body Surface [...]
--- OUTSIDE RECORDS SUMMARY | 2024-11-06 09:46 | XMS_ITS | Encounter Summary ---
Author Organization [employer] ([place], [place], [place], [place]) Address [address] [place] [address] Care Team Providers Care Lead Supply Worker Name Role Phone Unavailable Primary Care Provider Unavailabl e Encounter Details Date Type Department Care Team (Late st Contact Info) Description 10/13/2020 Transcribed Document [facility] [place] [facility] [place] [address] ProviderDaniela MD [address] [place] [address] [phone] Social History Tobacco Use Types Packs/Day Years Used Date Smoking Tobacco: Never Assessed Comments Unknown Sex and Gender Information Value Date Recorded Sex Assigned at Not on file Legal Sex Female 10:09 AM CDT Gender Identity Not on file Sexual Orientation Not on file documented as of this encounter Miscellaneous Notes * Cerner Conversion Note - Historical ProviderMD - 10/13/2020 3:38 AM CDT [facility] Emergency Department Depart Summary PERSON INFORMATION Name Dior Hanley Age 64 Years 1955 Sex Female Language PCP Marital Status Phone [id number] Visit Id Visit Reason N and/or V Specialty Enc Type Emergency Med Service Referred by Track Group [facility] Discharge Tracking Id [id number] Checkout Checkin 10/12/2020 20:44:00 Acuity 3 - Urgent [facility] Dispo Type Arrival 10/12/2020 20:44:00 Reg Status LOS 000 02:54 Address: ALEJANDRA KENT [address] [place] [address] POWERFORM PHYSICIAN NOTES VITALS INFORMATION Vital Sign Triage Temp 98.8 Temp Route Pulse Rate 88 Respiratory Rate 18 Blood Pressure 177/ 80 LOCATION INFORMATION Arrival Nurse Unit Room Bed 10/12/2020 20:44:00 [facility] ED Waitroom ([facility]) 10/12/2020 20:47:59 [facility] ED 2 MEDICAL INFORMATION Allergy Info: [...]
--- OUTSIDE RECORDS SUMMARY | 2024-11-06 09:46 | XMS_ITS | Encounter Summary ---
Author Organization [employer] ([place], [place], [place], [place]) Address [address] [place] [address] Care Team Providers Care Tankage Grinder Operator Name Role Phone Unavailable Primary Care Provider Unavailabl e Encounter Details Date Type Department Care Team (Late st Contact Info) Description 10/13/2020 Transcribed Document [facility] [place] [facility] [address] ProviderDaniela MD [address] [place] [address] [phone] Social History Tobacco Use Types Packs/Day Years Used Date Smoking Tobacco: Never Assessed Comments Unknown Sex and Gender Information Value Date Recorded Sex Assigned at Not on file Legal Sex Female 10:09 AM CDT Gender Identity Not on file Sexual Orientation Not on file documented as of this encounter Miscellaneous Notes * Cerner Conversion Note - Historical ProviderMD - 10/13/2020 3:38 AM CDT [facility] ADDRESS [place], [place] [phone] Name:Hayley Hanley Visit Date:10/12/2020 20:44:00 Emergency Department Care Providers: Physician: LEXUS BELTRAN MD Physician: Our doctors and staff appreciate your choice of [facility] for your emergency medical care. Read these instructions carefully. Please call us if you have any questions about your medical problem. [facility] Emergency Department [phone] [facility] Emergency Department [phone] [facility] Emergency Department [phone] Patient Education Materials Hayley Hanley has been [...] in ear, nose, and throat (ENT) problems (science interpreter) or a provider who specializes in [...] safe for you. General instructions ??? Take apeg-aid-pfrvkqx and prescription medicines only as told by [...] provider. Document Revised: 09/05/2018 Document Reviewed: 09/05/2018 [employer] Patient Education ? 2019 [employer]. STROKE is an EMERGENCY Every Minute Counts [...] x-ray department to pick them up ? [facility] # [phone] ? [facility] # [phone] 1 [facility] # [phone] ? If you had cultures done and [...] quit. ? National Network of Tobacco Cessation [id number]-LKDE-NOW 1 [place] Lung Association 2 [place] Heart Association [phone] 3 Viktor/Taqueria Jensen [phone] FINANCIAL INFORMATION ?? [facility] provides financial counseling to anyone who requests our services. ?? Emergency Physicians are independently contracted to provide your care. You will receive a bill for the care provided to you by the Physician and/or the Physician Pearl Restorer. This will be a separat e bill [...] as recommended Patient Signature / or Patient Garbage Truck Helper Provider Signature Date Date/Time 10/12/2020 23:38 [facility] [...]
--- OUTSIDE RECORDS SUMMARY | 2024-11-06 09:48 | XMS_ITS | Encounter Summary ---
Author Organization [employer] ([place], [place], [place], [place]) Address [address] [place] [address] Care Team Providers Care Orchid Grower Name Role Phone Unavailable Primary Care Provider Unavailabl e Encounter Details Date Type Department Care Team (Late st Contact Info) Description 10/13/[address] [facility] [place] Family [place] [facility] [place] [address] ProviderDaniela MD [address] [place] [address] [phone] Social History Tobacco Use Types Packs/Day Years Used Date Smoking Tobacco: Never Assessed Comments Unknown Sex and Gender Information Value Date Recorded Sex Assigned at Not on file Legal Sex Female 10:09 AM CDT Gender Identity Not on file Sexual Orientation Not on file documented as of this encounter Miscellaneous Notes * Cerner Conversion Note - Historical ProviderMD - 10/13/2020 3:55 AM CDT [facility] Emergency Department Depart Summary PERSON INFORMATION Name Dior Hanley Age 64 Years 1955 Sex Female Language PCP Marital Status Phone [id number] Visit Id Visit Reason N and/or V Specialty Enc Type Emergency Med Service Referred by Track Group [facility] Discharge Tracking Id [id number] Checkout 10/12/2020 23:55:12 Checkin 10/12/2020 20:44:00 Acuity 3 - Urgent [facility] Dispo Type Arrival 10/12/2020 20:44:00 Reg Status LOS 000 03:11 Address: ALEJANDRA KENT [address] [place] [address] POWERFORMS PHYSICIAN NOTES VITALS INFORMATION Vital Sign Triage Temp 98.8 Temp Route Pulse Rate 88 Respiratory Rate 18 Blood Pressure 177/ 80 LOCATION INFORMATION Arrival Nurse Unit Room Bed 10/12/2020 20:44:00 [facility] ED Waitroom ([facility]) 10/12/2020 20:47:59 [facility] ED 2 10/12/2020 23:55:12 [facility] ED Checkout ([facility]) MEDICAL INFORMATION Allergy Info: Benadryl; penicillin; [...]
--- OUTSIDE RECORDS SUMMARY | 2024-11-06 09:48 | XMS_ITS | Encounter Summary ---
Author Organization [employer] ([place], [place], [place], [place]) Address [address] [place] [address] Care Team Providers Care Veneer Gluer Name Role Phone Unavailable Primary Care Provider Unavailabl e Encounter Details Date Type Department Care Team (Late st Contact Info) Description 06/06/2022 Outside Orders [facility] Outpatient Physical Therapy [address] [facility] [facility] [address] [place] [address] Oliverio Ricks MD [address] [place] [address] [address] [place] [address] Hoarseness (Primary Dx) Social History Tobacco Use [...]
--- OUTSIDE RECORDS SUMMARY | 2024-11-06 09:48 | XMS_ITS | Clinical Summary ---
Author Organization [employer] ([place], [place], [place], [place]) Address [address] [place] [address] Care Team Providers Care Agricultural Real Estate Agent Name Role Phone Unavailable Primary Care Provider [...] Treatment Not on file Insurance MATTHEW FITZGERALD [id number] [facility] MEDICARE ADVANTAGE
--- OUTSIDE RECORDS SUMMARY | 2024-11-06 09:48 | XMS_ITS | Encounter Summary ---
Author Organization [employer] ([place], [place], [place], [place]) Address [address] [place] [address] Care Team Providers Care Fire Technician Name Role Phone Unavailable Primary Care Provider Unavailabl e Encounter Details Date Type Department Care Team (Late st Contact Info) Description 10/13/2020 Transcribed Document [facility] [facility] [place] [address] ProviderDaniela MD [address] [place] [address] [phone] Social History Tobacco Use Types Packs/Day Years Used Date Smoking Tobacco: Never Assessed Comments Unknown Sex and Gender Information Value Date Recorded Sex Assigned at Not on file Legal Sex Female 10:09 AM CDT Gender Identity Not on file Sexual Orientation Not on file documented as of this encounter Miscellaneous Notes * Cerner Conversion Note - Historical ProviderMD - 10/13/2020 3:55 AM CDT [facility] [place], [place] [phone] Name:Hayley Hanley Visit Date:10/12/2020 20:44:00 Emergency Department Care Providers: Physician: LEXUS BELTRAN MD Physician: Our doctors and staff appreciate your choice of [facility] for your emergency medical care. Read these instructions carefully. Please call us if you have any questions about your medical problem. [facility] Emergency Department [phone] [facility] Emergency Department [phone] [facility] Emergency Department [phone] Patient Education Materials Hayley Hanley has been [...] in ear, nose, and throat (ENT) problems (facs teacher) or a provider who specializes in [...] safe for you. General instructions ??? Take yaku-gru-rrafims and prescription medicines only as told by [...] provider. Document Revised: 09/05/2018 Document Reviewed: 09/05/2018 [employer] Patient Education ? 2019 itravel. STROKE is an EMERGENCY Every Minute Counts [...] x-ray department to pick them up ? [facility] # [phone] ? [facility] # [phone] 1 [facility] # [phone] ? If you had cultures done and [...] quit. ? National Network of Tobacco Cessation [id number]-SGZB-NOW 1 [place] [employer] 2 [place] Heart [employer] [phone] 3 Viktor/Taqueria Jensen [phone] FINANCIAL INFORMATION ?? [facility] provides financial counseling to anyone who requests our services. ?? Emergency Physicians are independently contracted to provide your care. You will receive a bill for the care provided to you by the Physician and/or the Physician Advanced Practice Registered Nurse. This will be a separat e bill [...] as recommended Patient Signature / or Patient Butter Melter Provider Signature Date Date/Time 10/12/2020 23:55 [facility] [...]
--- OUTSIDE RECORDS SUMMARY | 2024-11-06 09:48 | XMS_ITS | Referral Summary ---
Author Organization [employer] ([place], [place], [place], [place]) Address [address] [place] [address] Care Team Providers Care Video Production Specialist Name Role Phone Unavailable Primary Care [...] Treatment Not on file Insurance MATTHEW FITZGERALD [id number] [facility] MEDICARE ADVANTAGE
--- OUTSIDE RECORDS SUMMARY | 2024-11-06 09:48 | XMS_ITS ---
Laboratory report Created on: November 05, 2024 ANKITA CONTRERAS : 1955 Sex: Female Author Organization Unknown PROBLEMS Problems List Code Description RESULTS Laboratory Orders Date Order Code Test 2024-10-31 [id number] [facility]ORT[facility] Laboratory Results Date LOINC Test Value Unit Reference Range Interpre tation 2024-10-31 2143-6 CORTISOL 14.2 UG/DL 6.2-19.4
--- OUTSIDE RECORDS SUMMARY | 2024-11-06 09:48 | XMS_ITS | Clinical Summary ---
Author Organization [facility] Address [address] [address] Care Team Providers Care Adult Literacy Instructor Name Role Phone Sierra Jerry APRN Primary Care Provid er Allergies Active Allergy Reactions Criticality Noted Date Comments Diphenhydramine Other (See Comments) Low 07/17/2018 Hypertension; only intolerant to IV form Cephalexin Itching 04/07/2023 Sebjkltgzzb-Wkqyhqskb-Xew ant Unknown - Low Severity 04/07/2023 Insulin [...] taking differently: 8 mg daily every other [id number] Mon and Mon, Reported on 06/18/2020 glucose [...] with insulin Routine general medical examination at [facility] facility Screening for diabetes mellitus (DM) HEPATITIS C ANTIBODY Routine 08/20/2018 12:08 PM EDT from Last 3 Months or Most Recently Relevant to Health Maintenance Results * POC Glycosylated Hemoglobin (Hb A1C) (08/28/2018 8:28 AM EDT) Hemoglobin A1C 5.2 % [facility] Blood 08/28/2018 8:28 AM EDT Dayo Estes DO POINT OF CARE TEST ORDERABLES Final Result [facility]
[address] [place] [address], [place] [phone] * Hepatitis C Antibody (08/20/2018 12:08 PM EDT) Hep C Virus Ab <0.1 0.0 - 0.9 s/co ratio [facility] Comment: Negative: < 0.8 Indeterminate: 0.8 - 0.9 Positive: > 0.9 The CDC recommends that a positive HCV antibody result be followed up with a HCV Nucleic Acid Amplification test ([id number]). 08/20/2018 12:0 8 PM EDT 08/20/2018 Narrative [facility] ([facility]) - 08/22/2018 5:35 AM EDT Performed at: [address] [place] [address] [id number] [employer] Nurse: Keaton Viramontes PhD, Phone: [phone] Patient Fasting: Y Dayo Estes DO LAB BLOOD ORDERABLES Final Re sult Performing Organization Address City/[facility] Co de Phone Number [facility] [address] [place] [address], [place] [phone] [facility] [address] [place] [address], [place] [phone] from Last 3 Months or Most Recently Relevant to Health Maintenance Insurance [id number] MEDICARE REPLACE [facility] Medicare Advantage GROUP PPO Care Teams Adult Literacy Instructor Relationship Specialty Start Date End Date Sierra Jerry APRN [address] [place] [address] PCP - General Family Medicine 04/07/23
--- OUTSIDE RECORDS SUMMARY | 2024-11-06 09:48 | XMS_ITS | Patient Health Record ---
Author Organization [facility] Address [address] [place] [address] Care Team Providers Care Photonics Engineering Technologist Name Role Phone Claritza Sierra Primary Care Provider Radha Wharton Unavailable [phone] Sierra Guy Unavailable [phone] Migration, Provider Unavailable Unavailable Allergies Allergen (clinical drug ingredient) Drug/Non Drug Allergy documented on EMR Reaction Allergy Type Onset Date Status IV BENADRYL (uncoded) elevated b/p Allergy Active KEFLEX (uncoded) itching Allergy Act chelsea fluticasone / umeclidinium / vilanterol Trelegy Ellipta voiding issues Drug Allergy Active insulin glargine Toujeo SoloStar Unknown Drug Allergy Active Substance with 2-wzkbnzo-3-methylgl utaryl-coenzyme A reductase inhibitor mechanism of action [...] HDL 42 40-60 mg/dl CHLHDL 5.1 1-3.5 M-Magnesium Reviewed date:09/24/2024 10:43:29 AM Interpretation: Performing [...] AGRATIO 1.4 1.1-1.8 ALP 65 38-126 U/L M-Basic Metabolic Panel Reviewed date:11/05/2024 10:14:18 AM [...] please use: Cortisol PM: 2.3-11.9 Performed at: [address] [id number] Curtain Supervisor: Keaton Viramontes PhD, Phone: [phone] M-Complete Blood Count Auto Diff Reviewed date:09/24/2024 [...] date:05/06/2024 03:25:25 PM Interpretation: Performing Lab: Notes/Report: CT Scan : Sinuses Reviewed date:03/29/2024 01:55:15 PM Interpretation: Performing Lab: Notes/Report: M-Hemoglobin A1C Reviewed date:03/25/2024 03:01:31 PM Interpretation: Performing Lab: Notes/Report: HGBA1C 7.4 4.0-6.0 % < 6% Non-Diabetic Level < 7% Controlled Diabetic Level > 8% Poorly Controlled Diabetic Level M-Comprehensive Metabolic Pa hui Reviewed date:03/25/2024 03:01:30 [...] AGRATIO 1.5 1.1-1.8 ALP 52 38-126 U/L M-Complete Blood Count Auto Diff Reviewed date:03/25/2024 [...] Normal ALB 30mg CRE 300mg A:C <30mg/g Urinalysis Reviewed date:03/21/2024 01:23:33 PM Interpretation: Performing Lab: Notes/Report: Color/Clarity yellow clear Leuk neg Nitrite neg Urobili 0.2 Protein neg pH 6.0 Blood neg Sp. Gr. 1.015 Ketone neg Bili neg Glucose neg DEXA Hip and Spine - Screeni ng Reviewed date:12/25/2023 06:03:09 PM Interpretation: Performing Lab: Notes/Report: MRI : Lumbar Spine w/o contr ast Reviewed date:10/04/2024 02:30:25 PM Interpretation: Performing Lab: Notes/Report: M-Complete Blood Count Auto Diff Reviewed date:10/09/2024 [...] Performing Lab: Notes/Report: MG 2.4 1.6-2.3 mg/dl X ray : Spines, Thoracic Spi ne Reviewed date:05/10/2024 02:16:14 PM Interpretation: Performing Lab: Notes/Report: H-TVITD Reviewed date:09/24/2024 09:50:52 AM Interpretation: Performing Lab: Notes/Report: TVITD 110 30-100 ng/mL Deficient <20 ng/mL Insufficient 20-30 ng/mL Sufficient 30-100 ng/mL Potential Toxicity >100 ng/mL M-PHA INR Fingerstick Reviewed date:10/07/2024 09:53:20 AM [...] CLINIC IN PCI/CLINICAL REVIEW INDICATION INR RANGE H-TVITD Reviewed date:10/31/2024 05:37:47 PM Interpretation: Performing Lab: Notes/Report: TVITD 68.7 30-100 ng/mL Deficient <20 ng/mL Insufficient 20-30 ng/mL Sufficient 30-100 ng/mL Potential Toxicity >100 ng/mL Ultrasound : Liver Reviewed date:12/25/2023 06:12:19 PM Interpretation: Performing Lab: Notes/Report: H-FETIBC Reviewed date:09/24/2024 09:51:08 AM Interpretation: Performing Lab: Notes/Report: FE 60 37-170 ug/dL DTIBC 382 265-497 ug/dL IRONSAT 15.51892 15-55 % H-VITB12 Reviewed date:09/24/2024 09:50:35 AM Interpretation: Performing Lab: Notes/Report: VITB12 410 239-931 pg/mL M-PHA INR Fingerstick Reviewed date:11/04/2024 08:05:51 PM Interpretation: Performing Lab: Notes/Report: POCINRFS 2.3 [...] MON, THEN RESUME 8 MG DAILY THEREAFTER. M-Complete [...] 0.2 0.0-0.4 K/mm3 BA# 0.1 0-0.2 K/mm3 M-INR/PT Reviewed date:2023 08:27:15 AM Interpretation: Performing Lab: Notes/Report: PT 20.9 10.1-12.5 seconds INR 2.00 0.9-1.1 INDICATION INR RANGE Therapy for DVT, PE, Atrial Fib, 2.0-3.0 Prophylaxis for VTE. Therapy for Mechanical Heart Valve, 2.5-3.5 Prevention of Sytemic Emolism secondary to AMI. M-Comprehensive Metabolic Pa hui Reviewed date:2023 08:27:38 [...] date:2023 08:27:22 AM Interpretation: Performing Lab: Notes/Report: Severely Increased: >300 Moderately Increased: 30 - 300 Units: mg/g creat Normal: 0 - 29 UCREAT 136 Not Estab. mg/dL Random urine reference range not established. 24 hour urine samples recommended. MICROALB 76.300 0-16.7 mg/L MALBCREAT 56.1 H-VITB12 Reviewed date:12/15/2023 05:36:45 PM Interpretation: Performing Lab: Notes/Report: VITB12 583 239-931 pg/mL M-PHA INR Fingerstick Reviewed date:03/13/2024 09:25:58 PM [...] SECONDARY TO AMI M-PHA INR Fingerstick Reviewed date:08/28/2024 05:04:27 PM [...] Duration: 90 days 08/14/2021 Active Dexcom G7 Store Sales Manager DIRECTED CONTINUOUS GLUCOSE MONITORING; Duration: 30 DAY(S) *Please review and pick correct strength-formulati on from [employer] options. If intended option is not shown, [...] once a day; Duration: 90 days Active aTyr Pharmacom G7 Sensor 1 SENSOR DIRECTED FOR CONTINUOUS GLUCOSE MONITORING; Duration: 90 DAYS *Please review and pick correct strength-formulati on from [employer] options. If intended option is not shown, [...] review and pick correct strength-formulati on from [employer] options. If intended option is not shown, [...] Status Risk Notes Problem Diabetic renal disease (990680988) Type 2 diabetes mellitus with diabetic chronic kidney disease (E11.22) Active confirmed Problem Hyperglycemia due to type 2 diabetes mellitus (539770164081060) Type 2 diabetes mellitus with hyperglycemia (E11.65) Active confirmed Problem Chronic pain (21787617) Other chronic pain (G89.29) Active confirmed Problem Chronic rhinitis (81730841) Chronic rhinitis (J31.0) Active confirmed Problem Sciatica (84106898) Lumbago with sciatica, left side (M54.42) Active confirmed Problem Chronic kidney disease stage 2 (662591280) Chronic kidney disease, stage 2 (mild) (N18.2) Active confirmed Problem Screening for malignant neoplasm of breast (859107961) Encounter for screening mammogram for malignant neoplasm of breast (Z12.31) Active confirmed Problem Mixed anxiety and depressive disorder (699193969) Depression with anxiety (F41.8) Active confirmed Problem Vitamin D deficiency (53537066) Vitamin D deficiency (E55.9) Active confirmed Problem Essential hypertension (62528475) Essential hypertension (I10) Active confirmed Problem Vitamin B12 deficiency (non anemic) (41184314) B12 deficiency (E53.8) Active confirmed Problem Restless legs syndrome (14334774) Restless leg syndrome (G25.81) Active confirmed Problem Allergic rhinitis (59884483) Chronic allergic rhinitis (J30.9) Active confirmed Problem Long-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 (717578607) correction (current) use of insulin (Z79.4) Active confirmed Problem Chronic pain (14688825) Other chronic pain (G89.29) Active confirmed Problem Obese class II (750838999377404) BMI 38.0-38.9,adult (Z68.38) Active confirmed Problem Gastroesophageal reflux disease without esophagitis (181905664) Gastroesophageal reflux disease without esophagitis (K21.9) Active confirmed Problem Postmenopausal state (03088277) Post menopausal syndrome (Z78.0) Active confirmed Problem Obese class II (528407207882375) BMI 37.0-37.9, adult (Z68.37) Active confirmed Problem Obese class II (692172433875320) BMI 36.0-36.9,adult (Z68.36) Active confirmed Problem Arthritis of hip (15199837) Hip arthritis (M19.90) Active confirmed Problem Anxiety (57656003) Situational anxiety (F41.8) Active confirmed Problem Peripheral venous insufficiency (56976678) Venous (peripheral) insufficiency (I87.2) Active confirmed Problem Major depression, single episode (26961936) Depression, reactive (F32.9) Active confirmed Problem Localized, primary osteoarthritis of the pelvic region and thigh (830510309) 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) Active confirmed Problem Ventricular premature complex (disorder) (969027519) PVC (premature ventricular contraction) (I49.3) Active confirmed Problem Moderate persistent asthma (110076283) Asthma, moderate persistent (J45.40) Active confirmed Problem Recurrent deep vein thrombosis (DVT) of both lower extremities (I82.403) Active confirmed Problem Spondylosis without myelopathy (10162070) Arthritis of back (M47.9) Active confirmed Problem Obstructive sleep apnea syndrome (33560132) MARYAM on CPAP (G47.33) Active confirmed Problem Postmenopausal osteoporosis (680635396) Postmenopausal osteoporosis (M81.0) Active confirmed Problem Mixed hyperlipidemia (324818287) Mixed dyslipidemia (E78.2) Active confirmed Problem Moderate major depression, single episode (55819250) Current moderate episode of major depressive disorder without prior episode (F32.1) Active confirmed Problem History of iron deficiency (214822241) History of iron deficiency (Z86.39) Active confirmed Problem 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) Active confirmed Problem Anticoagulant therapy (764079855) Anticoagulated on Coumadin (Z79.01) Active confirmed Problem Arthropathy of right sacroiliac joint (19087938946415067 ) Arthropathy of right sacroiliac joint (M47.818) Active confirmed Problem Low back pain (132114414) Low back pain, unspecified (M54.50) Active confirmed Problem Arthritis of hip (92251966) Arthritis of hip (M16.10) Active confirmed Problem Hypervitaminosis D (04976697) High vitamin D level (E67.3) Active confirmed Problem Iron deficiency anemia (76249987) Iron deficiency anemia (D50.9) Problem resolved confirmed Vital Signs Heart Rate 68 /min 10/31/2024 Temperature 97.5 degrees Fahrenheit 10/31/2024 Oximetry 96 04/05/2024 O2 sat 96% RA. Blood pressure diastolic 56 mm Hg 10/31/2024 Height 64 in 10/31/2024 Blood pressure systolic 128 mm Hg 10/31/2024 Weight 206.4 lbs 10/31/2024 BMI 35.42 kg/m2 10/31/2024 Encounters Encounter Location Date Provider Diagnosis [facility] [address] [place] [address] 07/13/2024 Provider Migration Type 2 diabetes mellitus with diabetic chronic kidney disease E11.22 [facility] [address] [facility] [address] [place] [address] 11/13/2023 Sierra Jerry Acute URI J06.9 [facility] [address] [place] [address] 11/30/2023 Sierra Jerry Chronic kidney disease, stage [...] screening mammogram Z12.31 and Postmenopausal osteoporosis M81.0 [facility] [address] [facility] [address] [place] [address] 02/08/2024 Sierra Jerry Type 2 diabetes mellitus with diabetic chronic kidney disease E11.22 ; Subacute sinusitis, unspecified location J01.90 and Nasal congestion R09.81 [facility] [address] [place], [place] [address] 03/21/2024 Sierra Jerry Type 2 diabetes mellitus with diabetic chronic kidney disease E11.22 ; Right flank pain R10.9 ; Chronic rhinitis J31.0 ; Immunization(s) administered Z23 ; Recurrent deep vein thrombosis (DVT) of both lower extremities I82.403 and Essential hypertension I10 [facility] [address] [place] [address] 04/05/2024 Sierra Guy Acute recurrent frontal sinusitis J01.11 [facility] [address] [place] [address] 05/02/2024 Sierra Jerry Low back pain, unspecified M54.50 ; Other chronic pain G89.29 and Type 2 diabetes mellitus with diabetic chronic kidney disease E11.22 [facility] [address] [place] [address] 09/23/2024 Sierra Jerry Type 2 diabetes mellitus [...] side M54.42 and Other chronic pain G89.29 [facility] [address] [place] [address] 10/07/2024 Sierra Claritza Type 2 diabetes mellitus with diabetic chronic kidney disease E11.22 ; Pre-syncope R55 ; Essential hypertension I10 ; History of iron deficiency Z86.39 and Hyperkalemia E87.5 [facility] [address] [place] [address] 10/31/2024 Sierra Claritza Type 2 diabetes mellitus with diabetic chronic kidney disease E11.22 ; Essential hypertension I10 ; High vitamin D level E67.3 and Hyperkalemia E87.5 [facility] [address] [place] [address] 11/08/2023 Sierra Claritza [facility] [address] [place] [address] 11/20/2023 Sierra Claritza [facility] [address] [place] [address] 12/02/2023 Sierra Claritza [facility] [address] [place] [address] 12/04/2023 Sierra Claritza [facility] [address] [place] [address] [facility] Elevated liver enzym es R74.8 [facility] [address] [place] [address] 01/22/2024 [facility] Type 2 diabetes mellitus with hyperglycemia E11.65 [facility] [address] [place] [address] 01/22/2024 Sierra Claritza [facility] [address] [place] [address] 01/23[facility] Type 2 diabetes mellitus with hyperglycemia E11.65 [facility] [address] [place] [address] 01/31/2024 Sierra Claritza [facility] [address] [place] [address] 03/11/[facility] Type 2 diabetes mellitus with diabetic chronic kidney disease E11.22 [facility] [address] [place] [address] [facility] 2 diabetes mellitus with diabetic chronic kidney disease E11.22 [facility] [address] [place] [address] 05/02/2024 Sierra Claritza [facility] [address] [place] [address] 05/06/2024 Sierra Jerry Arthritis of back M47.9 [facility] [address] [place] [address] 05/08/2024 Sierra Jerry Mid back pain M54.9 [facility] [address] [place] [address] 05/23/2024 Sierra Claritza Type 2 diabetes mellitus with diabetic chronic kidney disease E11.22 [facility] [address] [place] [address] 06/27/2024 Sierra Loganence [facility] [address] [place] [address] 07/15/2024 Sierra Loganence [facility] [address] [place] [address] 09/23/2024 Sierra Loganence [facility] [address] [place] [address] 09/24/2024 Sierra Loganence [facility] [address] [place] [address] 09/24/2024 Sierra Claritza Type 2 diabetes mellitus with diabetic chronic kidney disease E11.22 [facility] [address] [facility] [address] [place] [address] 09/25/2024 Sierra Jerry Lumbago with sciatic a, left side M54.42 [facility] [address] [facility] [address] [place] [address] 10/24/2024 Sierra Jerry Assessments Encounter Date Diagnosis [...] Monitor : Event Recorder 08/12/19 Physical Therapy 08/21/2013 Physical Therapy 01/05/2015 Mammogram : Bilateral 08/23/2012 Mammogram : Bilateral 08/23/2012 Dietary Consult 10/04/2013 H-CBC with AUTO DIFF 03/20/2017 H-CBC with AUTO DIFF 06/27/2014 H-CBC with AUTO DIFF 08/31/2015 H-CBC with AUTO DIFF 11/26/2014 H-CBC with AUTO DIFF 06/20/2014 H-CBC with AUTO DIFF 07/24/2017 H-VITAMIN B12 07/24/2017 H-VITAMIN B6 (PYRIDOXAL PHOSPHAT 015 H-FERRITIN 07/24/2017 H-FERRITIN 11/26/2014 H-CMP 11/26/2014 H-CMP 08/31/2015 H-CMP 06/20/2014 H-CMP 11/30/2015 H-CMP 07/24/2017 H-CMP 03/20/2017 H-MAGNESIUM 06/20/2014 H-LIPID PANEL 07/24/2017 H-LIPID PANEL 08/31/2015 H-LIPID PANEL 11/26/2014 H-LIPID PANEL 03/20/2017 H-LIPID PANEL 02/17/2014 H-HGBA1C 11/26/2014 H-HGBA1C 08/31/2015 H-HGBA1C 07/24/2017 H-HGBA1C 11/30/2015 H-TSH 06/20/2014 H-TSH 07/24/2017 H-VIT D, 25-HYDROXY 07/24/2017 H-VIT D, 25-HYDROXY 08/31/2015 H-MICROALBUMIN URINE 08/31/2015 H-RADHA PROFILE 06/20/2014 H-ANTI PHOSPHOLIPID ANTIBODY 02/15/2012 Pulmonary Function Test- Complete 2020 H-VITAMIN C 06/20/2014 M-Complete Blood Count Auto Diff 019 M-Complete Blood Count Auto Diff 020 M-Complete Blood Count Auto Diff 024 M-D-Dimer 11/30/2020 M-Comprehensive Metabolic Panel 12/26/19 M-Comprehensive Metabolic Panel 11/30/19 M-Comprehensive Metabolic Panel 12/28/19 M-Hemoglobin A1C 12/27/2018 M-Hemoglobin A1C 12/26/2019 M-Hemoglobin A1C 11/30/2023 M-Lipid Panel 11/30/2023 M-Lipid Panel 12/26/2019 M-Lipid Panel 12/27/2018 M-Vitamin B12 12/27/2018 M-Vitamin B12 11/30/2023 M-Vitamin B12 09/23/2024 M-Vitamin B12 02/09/2023 M-Vitamin B12 07/09/2020 M-Vitamin D 25 Hydroxy 07/09/2020 M-Vitamin D 25 Hydroxy 02/09/2023 M-Vitamin D 25 Hydroxy 10/31/2024 M-Vitamin D 25 Hydroxy 09/23/2024 M-Vitamin D 25 Hydroxy 11/30/2023 M-Vitamin D 25 Hydroxy 12/27/2018 M-Iron and TIBC 09/23/2024 M-Microalb/Creat Ratio, [facility] 024 M-Microalb/Creat Ratio, [facility] Ur 023 M-Microalb/Creat Ratio, [facility] Ur 020 M-Microalb/Creat Ratio, [facility] Ur 019 M-Microalb/Creat Ratio, [facility] Ur 019 M-Microalb/Creat Ratio, [facility] Ur 018 Physical Therapy Eval and Treat 07/11/19 24 Physical Therapy Eval and Treat 05/06/19 25 Future Test Test Name Order Date H-BMP 07/09/2012 Next Appt Details Provider Name:Sierra Magallanes ce, 12/05/2024 10:15:00 AM, [address], [address], [place], [address], Insurance Providers Payer Name Payer Address Payer Phone Subscriber Number Group Number Insured Name Patient Relationship to Insured Coverage Start Date Coverage End Date [employer] [address] [address] [place] [address] [id number] Dior Hanley Self - patient is the [...]
--- NOTE | 2024-11-06 10:19 | A.OFFVIS_ITS ---
[facility] Disclaimer: The information contained in this section may have been updated after the patient was seen, as this information can be updated by other users. Medical History History of recurrent deep vein thrombosis (DVT) Severe persistent asthma Allergic rhinitis due to animal hair and dander Allergy, unspecified, subsequent encounter Family history of asthma Family history of hypercoagulability Dyspnea on exertion Personal history of other venous thrombosis and embolism Surgical History Hx of cholecystectomy History of appendectomy Family History Other No significant family history Social History (Updated 10/23/24 @ 10:32 by Irais Hudson RN) Smoking Status: Never smoker alcohol intake: never current occupational status: retired Travel in the last 8 weeks?: None household members: none housing: apartment PM Subjective & Objective Subjective Subjective:: Patient is a pleasant 68-year-old female who presents today for follow-up. Today she rates her pain a 2 out of 10 however does state that she has been noticing a little bit more buttocks pain and that it is affecting primarily her right upper thigh with some worsening pain. Patient does state from her last visit that she ended up leaving and the next day she was actually having more pain in and around her SI joints where I had palpated prior. Patient does state that she did get the compounded cream and it did seem to help some and she would like a little bit more time to see if this will work effectively. Patient has also been having some pain in and around her neck. Her Constantine has been reviewed and is appropriate. Review of Systems: General: No recent weight changes, no fever, no sleep disturbances Respiratory: No cough, no shortness of air, no recurring pulmonary infections Cardiovascular/peripheral vascular: No chest pain, no palpitations, no edema, no shortness of breath Gastrointestinal: No new onset incontinence, normal bowel movements reported Genitourinary: No new onset incontinence Musculoskeletal: Low back pain, buttocks pain, neck pain Psychiatric: [Normal mood/affect] Neurological: [Denies weakness in extremities], [denies balance issues] Pain at rest (0-10 scale): 2 Objective Objective:: Physical Exam: General: Alert and oriented x3, no acute distress, pleasant and cooperative Lungs: Respirations even and unlabored, symmetrical chest expansion Eyes: PERRL Musculoskeletal: Flexion and extension of lumbar [spine] somewhat guarded secondary to pain, [antalgic gait noted] Neurological: Speech clear, no gross sensory deficit Has patient had previous pain injection?: No Conservative treatment options previously tried: Home exercise plan Length of treatment: Longer than 12 weeks Meds Home Medications and Allergies Home Medications ?Medication ?Instructions ?Recorded ?Confirmed ?Type cetirizine 10 mg tablet 10 mg PO DAILYP PRN allergie s 05/12/17 10/23/24 History flunisolide 25 mcg (0.025 %) nasal 25 ml intranasal DA TRUDY allergies 05/12/17 10/23/24 History spray lansoprazole 30 mg capsule,delayed 30 mg PO BID stomac h 05/12/17 10/23/24 History release metformin 1,000 mg tablet 1,000 mg PO BID Diabetes 05/2810/23/24 History metoprolol tartrate 25 mg tablet 50 mg PO DAILY blood pressure 05/12/17 10/23/24 History warfarin 2 mg tablet 8 mg PO DAILY Blood thinner 05/12/17 10/23/24 History L.acidoph,paracasei,B.animalis 10 1 each PO DAILY [facility] 02/04/20 10/23/24 History billion cell capsule calcium 500 mg (as 1 each PO BID Supplement 10/23/24 History carbonate)-vitamin D3 3.125 mcg (125 unit) tablet nystatin 100,000 unit/gram topical 1 applic topical DA TRUDY PRN Skin 08/25/20 10/23/24 History cream Irritation ipratropium 0.5 mg-albuterol 3 mg 3 ml inhalation QID PRN shortness 02/23/22 10/23/24 Rx (2.5 mg base)/3 mL nebulization of breath or wheezing 90 days #270 soln mL azelastine 137 mcg (0.1 %) nasal 1 spray intranasal .q 6 PRN 08/23/22 10/23/24 Rx spray allergic symptoms 90 days #9 0 mL insulin glargine 100 unit/mL 61 unit SQ DAILY Diabetes 01/11/23 10/23/24 History subcutaneous solution losartan 25 mg tablet 100 mg PO DAILY blood pressu re 01/11/23 10/23/24 History meclizine 25 mg tablet 25 mg PO DIRECTED PRN Diz ziness 01/11/23 10/23/24 History albuterol sulfate 90 mcg/actuation 2 inh inhalation Q6 H PRN shortness 02/24/23 10/23/24 Rx aerosol inhaler of breath or wheezing 90 day s #8.5 grams budesonide 160 mcg-glycopyr 9 2 inh inhalation BID 90 days #10.7 02/24/23 10/23/24 Rx mcg-formot 4.8 mcg/actuation HFA grams inhaler (Breztri Aerosphere) fluticasone propionate 50 2 spray intranasal DAILY 90 days 02/24/23 10/23/24 Rx mcg/actuation nasal #15.8 mL spray,suspension montelukast 10 mg tablet 10 mg PO DAILY #90 tabs 02/0810/23/24 Rx (Singulair) citalopram 20 mg tablet 10 mg PO DAILY Anxiety 09/1310/23/24 History azithromycin 250 mg tablet See Rx Instructions PO .COM PLEX #6 09/17/24 10/23/24 Rx (Zithromax Z-Khai) tabs benzonatate 100 mg capsule 100 mg PO BID PRN cough #20 caps 09/17/24 10/23/24 Rx tirzepatide 2.5 mg/0.5 mL 2.5 mg SQ DIRECTED Diabet es 09/17/24 10/23/24 History subcutaneous pen injector (Guillermounkalpeshro) baclofen 5 mg tablet 5 mg PO TID #42 tabs 5 Rx New Prescriptions to Start Prescriptions: baclJosy Ghosh Allergies Allergy/AdvReac Type Severity Reaction Status Date / Time diphenhydramine (From Allergy Severe Hypertensio Verified 09/17/24 10:24 Benadryl) n Penicillins Allergy Intermediate ITCHING Verified 09/17/24 10:24 simvastatin Allergy Intermediate I-RASH Verified 09/17/24 10:24 Assessment and Plan *Assessment and plan (1) Right hip pain: Status: Acute Category: Medical Code(s): M25.551 - Pain in right hip (2) Degenerative disc disease: Status: Acute Category: Medical Plan I did discuss with the patient that I do still believe that she may benefit from some injections such as her SI joints. We will follow-up in future. Patient was counseled that she can use her compounded cream in and around her neck and that I will send in a 2-week dose of baclofen 5 mg 3 times daily as needed and see if this helps additionally. Patient will return to clinic in 1 month for reevaluation of symptoms and plan of care. Patient has been instructed to contact the clinic with any concerns before the next appointment. Dr. Oden has reviewed this note and agrees with this plan of care. This note was dictated using voice recognition software and make contain errors or omissions. All injections are used with Lidocaine, Bupivacaine and dexamethasone. Occasionally urine drug screen is needed to verify patient's compliance with our office pain contract. This is ordered based off specific treatments related to chronic pain with the potential to abuse certain medications.
[2024-11-06 10:21] VITALS: BP 127/67; PULSE 79; RESP 18; O2SAT 96; BMI 32.8
== END 2024-11-06 23:59 | disposition home or self-care (01) ==
PROVIDERS: PCP Nurse Practitioner Family; Visit Provider Nurse Practitioner Family
DX: M25.551 Pain in right hip (principal)
CPT/HCPCS: 99212; G0463

== ENCOUNTER 2024-12-16 08:49 | Outpatient (CLI) | payer MEDICARE, SELFPAY ==
--- OUTSIDE RECORDS SUMMARY | 2023-04-07 14:52 | XMS_ITS | Encounter Summary ---
[facility] Address [address] [place] [address] Care Team Providers Care Combat Systems Operator Mine Warfare Name Role Phone Sierra Jerry APRN Primary Care Provid er Encounter Details Date Type Department Care Team (Late st Contact Info) Description 04/07/2023 1:52 PM EST Hospital Encounter [facility] PULMONARY & CRITICAL CARE MEDICINE [facility] [place] [address] Social History Tobacco Use Types [...] on filedocumented in this encounter Care Teams Combat Systems Operator Mine Warfare Relationship Specialty Start Date End Date Sierra Jerry APRN [address] [place] [phone] PCP - General Family Medicine 04/07/23 documented as of this encounter
--- OUTSIDE RECORDS SUMMARY | 2024-12-16 09:00 | XMS_ITS | Encounter Summary ---
Author Organization [employer] ([place], [place], [place]) Address [address] [place] [address] Care Team Providers Care Manager Of Digital Name Role Phone Unavailable Primary Care Provider Unavailabl e Encounter Details Date Type Department Care Team (Late st Contact Info) Description 10/13/2020 Transcribed Document [facility] [place] [address] ProviderDaniela MD [address] [place] [place] [address] [id number] Social History Tobacco Use Types Packs/Day Years Used Date Smoking Tobacco: Never Assessed Comments Unknown Sex and Gender Information Value Date Recorded Sex Assigned at Not on file Legal Sex Female 10:09 AM CDT Gender Identity Not on file Sexual Orientation Not on file documented as of this encounter Miscellaneous Notes * Cerner Conversion Note - Historical ProviderMD - 10/13/2020 3:38 AM CDT [facility] Emergency Department Depart Summary PERSON INFORMATION Name Dior Hanley Age 64 Years 1955 Sex Female Language PCP Marital Status Phone [id number] Visit Id Visit Reason N and/or V Specialty Enc Type Emergency Med Service Referred by Track Group [facility] Discharge Tracking Id [id number] Checkout Checkin 10/12/2020 20:44:00 Acuity 3 - Urgent [facility] Dispo Type Arrival 10/12/2020 20:44:00 Reg Status LOS 000 02:54 Address: ALEJANDRA KENT [address] [place] [address] POWERFORM PHYSICIAN NOTES VITALS INFORMATION Vital Sign Triage Temp 98.8 Temp Route Pulse Rate 88 Respiratory Rate 18 Blood Pressure 177/ 80 LOCATION INFORMATION Arrival Nurse Unit Room Bed 10/12/2020 20:44:00 [facility] ED Waitroom ([facility]) 10/12/2020 20:47:59 [facility] ED 2 MEDICAL INFORMATION Allergy [...]
--- OUTSIDE RECORDS SUMMARY | 2024-12-16 09:00 | XMS_ITS | Clinical Summary ---
Author Organization [employer] ([place]) Address [address] [place] [address] Care Team Providers Care Electrician Underground Name Role Phone Unavailable Primary Care Provider [...] Treatment Not on file Insurance [place] FIT[place] [id number] [facility] MEDICARE ADVANTAGE
--- OUTSIDE RECORDS SUMMARY | 2024-12-16 09:00 | XMS_ITS | Encounter Summary ---
Author Organization [employer] ([place]) Address [address] [place] [address] Care Team Providers Care Ssrs Report Developer Name Role Phone Unavailable Primary Care Provider Unavailabl e Encounter Details Date Type Department Care Team (Late st Contact Info) Description 10/13/2020 Transcribed Document [facility] [place] [facility] [place] [address] ProviderDaniela MD [address] [place] [address] [phone] Social History Tobacco Use Types Packs/Day Years Used Date Smoking Tobacco: Never Assessed Comments Unknown Sex and Gender Information Value Date Recorded Sex Assigned at Not on file Legal Sex Female 10:09 AM CDT Gender Identity Not on file Sexual Orientation Not on file documented as of this encounter Miscellaneous Notes * Cerner Conversion Note - Historical ProviderMD - 10/13/2020 3:55 AM CDT [facility] Emergency Department Depart Summary PERSON INFORMATION Name Dior Hanley Age 64 Years 1955 Sex Female Language PCP Marital Status Phone [phone] Visit Id Visit Reason N and/or V Specialty Enc Type Emergency Med Service Referred by Track Group [facility] Discharge Tracking Id [id number] Checkout 10/12/2020 23:55:12 Checkin 10/12/2020 20:44:00 Acuity 3 - Urgent [facility] Dispo Type Arrival 10/12/2020 20:44:00 Reg Status LOS 000 03:11 Address: ALEJANDRA KENT [address] [place] [address] POWERFORMS PHYSICIAN NOTES VITALS INFORMATION Vital Sign Triage Temp 98.8 Temp Route Pulse Rate 88 Respiratory Rate 18 Blood Pressure 177/ 80 LOCATION INFORMATION Arrival Nurse Unit Room Bed 10/12/2020 20:44:00 [facility] ED Waitroom ([facility]) 10/12/2020 20:47:59 [facility] ED 2 10/12/2020 23:55:12 [facility] ED Checkout ([facility]) MEDICAL INFORMATION Allergy Info: Benadryl; penicillin; [...]
--- OUTSIDE RECORDS SUMMARY | 2024-12-16 09:00 | XMS_ITS | Encounter Summary ---
Author Organization [employer] ([place]) Address [address] [place] [address] Care Team Providers Care Teller Head Name Role Phone Unavailable Primary Care Provider Unavailabl e Encounter Details Date Type Department Care Team (Late st Contact Info) Description 10/13/2020 Transcribed Document [facility] [place] [facility] [place] [address] ProviderDaniela MD [address] [place] [address] [phone] Social History Tobacco Use Types Packs/Day Years [...] On: 10/12/2020 20:49 EDT by Suzy Montoya Transport Nurse Assessment Triage Date/Time : 10/12/2020 20:49 EDT Suzy Montoya Rn - 10/12/2020 20:49 EDT DCP GENERIC CODE Tracking Acuity : 3 - Urgent [facility] Tracking Group : KELLY Barry Suzy Montoya Rn - 10/12/2020 20:49 EDT [...] Preferred Communication Mode : Verbal Languages : Togolese Child/Parent Domestic Concerns : None Threats of Suicide : No Suzy Montoya Rn - 10/12/2020 20:49 EDT Height and Weight Height Source : Stated Height Entry Format : Roberts Height, Inches : 65 Inch(Converted to: 5 ft 5 Inch, 165.10 cm) Clinical Height : 165.1 cm Weight Source : Stated Type of Weight Measurement Est : Roberts Weight, est lb : 220 lb Estimated Clinical Dosing Weight : 100 kg [place] Body Weight : 57 kg Body Surface [...]
--- OUTSIDE RECORDS SUMMARY | 2024-12-16 09:00 | XMS_ITS | Encounter Summary ---
Author Organization [employer] ([place]) Address [address] [place] [address] Care Team Providers Care Tobacco Scrap Sifter Name Role Phone Unavailable Primary Care Provider Unavailabl e Encounter Details Date Type Department Care Team (Late st Contact Info) Description 10/13/2020 Transcribed Document [facility] [place] [address] ProviderDaniela MD [address] [place] [address] [phone] Social History Tobacco Use Types Packs/Day Years Used Date Smoking Tobacco: Never Assessed Comments Unknown Sex and Gender Information Value Date Recorded Sex Assigned at Not on file Legal Sex Female 10:09 AM CDT Gender Identity Not on file Sexual Orientation Not on file documented as of this encounter Miscellaneous Notes * Cerner Conversion Note - Historical ProviderMD - 10/13/2020 3:38 AM CDT [facility] ADDRESS [place], [place] [phone] Name:Hayley Hanley Visit Date:10/12/2020 20:44:00 Emergency Department Care Providers: Physician: LEXUS BELTRAN MD Physician: Our doctors and staff appreciate your choice of [facility] for your emergency medical care. Read these instructions carefully. Please call us if you have any questions about your medical problem. [facility] Emergency Department [phone] [facility] Emergency Department [phone] [facility] Emergency Department [phone] Patient Education Materials Hayley Hanley has been [...] in ear, nose, and throat (ENT) problems (arboriculture teacher) or a provider who specializes in [...] safe for you. General instructions ??? Take yrnl-hkg-rolpttd and prescription medicines only as told by [...] provider. Document Revised: 09/05/2018 Document Reviewed: 09/05/2018 [employer]ens[employer] Patient Education ? 2019 ProcessUnity. [facility] is an EMERGENCY Every Minute Counts [...] x-ray department to pick them up ? [facility] # [phone] ? [facility] # [phone] 1 [facility] # [phone] ? If you had cultures done and [...] quit. ? National Network of Tobacco Cessation FYvlemupk6-234-JFBP-NOW 1 [place] [employer] 2 [place] [employer] [phone] 3 Viktor/Taqueria Jensen [phone] FINANCIAL INFORMATION ?? [facility] provides financial counseling to anyone who requests our services. ?? Emergency Physicians are independently contracted to provide your care. You will receive a bill for the care provided to you by the Physician and/or the Physician Chart Collector. This will be a separat e bill [...] as recommended Patient Signature / or Patient Service Desk Specialist Provider Signature Date Date/Time 10/12/2020 23:38 [facility] [...]
--- OUTSIDE RECORDS SUMMARY | 2024-12-16 09:00 | XMS_ITS | Referral Summary ---
Author Organization [employer] ([place]) Address [address] [place] [address] Care Team Providers Care Collar Closer Lockstitch Name Role Phone Unavailable Primary Care Provider [...] Treatment Not on file Insurance [place] FITZGERAL[place] [id number] [facility] MEDICARE ADVANTAGE
--- OUTSIDE RECORDS SUMMARY | 2024-12-16 09:00 | XMS_ITS | Encounter Summary ---
Author Organization [employer] ([place]) Address [address] [place] [address] Care Team Providers Care Petroleum Geologist Name Role Phone Unavailable Primary Care Provider Unavailabl e Encounter Details Date Type Department Care Team (Late st Contact Info) Description 10/13/[address] [facility] [place] [facility] [place] [address] ProviderDaniela MD [address] [place] [address] [phone] Social History Tobacco Use Types Packs/Day Years Used Date Smoking Tobacco: Never Assessed Comments Unknown Sex and Gender Information Value Date Recorded Sex Assigned at Not on file Legal Sex Female 10:09 AM CDT Gender Identity Not on file Sexual Orientation Not on file documented as of this encounter Miscellaneous Notes * Cerner Conversion Note - Historical ProviderMD - 10/13/2020 3:55 AM CDT [facility] ADDRESS [place], [place] [phone] Name:Hayley Hanley Visit Date:10/12/2020 20:44:00 Emergency Department Care Providers: Physician: LEXUS BELTRAN MD Physician: Our doctors and staff appreciate your choice of [facility] for your emergency medical care. Read these instructions carefully. Please call us if you have any questions about your medical problem. [facility] Emergency Department [phone] [facility] Emergency Department [phone] [facility] Emergency Department [phone] Patient Education Materials Hayley Hanley has been [...] in ear, nose, and throat (ENT) problems (camera supervisor) or a provider who specializes in disorders [...] safe for you. General instructions ??? Take dmnn-dpt-ppnzrrz and prescription medicines only as told by [...] provider. Document Revised: 09/05/2018 Document Reviewed: 09/05/2018 [employer] Patient Education ? 2019 RRsat. [facility] is an EMERGENCY Every Minute Counts [...] x-ray department to pick them up ? [facility] # [phone] ? [facility] # [phone] 1 [facility] # [phone] ? If you had cultures done and [...] quit. ? National Network of Tobacco Cessation USaavorca7-637-KDCY-NOW 1 [place] [employer] Association 2 [place] Heart Association [phone] 3 Viktor/Taqueria Jensen [phone] FINANCIAL INFORMATION ?? [facility] provides financial counseling to anyone who requests our services. ?? Emergency Physicians are independently contracted to provide your care. You will receive a bill for the care provided to you by the Physician and/or the Physician Concept Artist. This will be a separat e bill [...] as recommended Patient Signature / or Patient Road Engineer Provider Signature Date Date/Time 10/12/2020 23:55 Saint [...] instructed by (signature) Date Electronically signed by Janusz Hood Conversion Water Plant Pump Operator Supervisor Cerner at 07/12/2022 11:38 AM CDT documented in this encounter Plan of Treatment Not on file documented as of this encounter Visit Diagnoses Not on filedocumented in this encounter
--- OUTSIDE RECORDS SUMMARY | 2024-12-16 09:00 | XMS_ITS | Patient Health Record ---
[facility] Address [address] [place] [id number] Care Team Providers Care Station Air Traffic Control Specialist Name Role Phone Laureano Hernandez Primary Care Provider [phone] Allergies Allergen (clinical drug ingredient) Drug/Non Drug Allergy documented on EMR Reaction Allergy Type Onset Date Status erythromycin Erythromycin itching Drug Allergy A ctive pitavastatin Livalo SOA Drug Allergy Acti ve Penicillin rash Drug Allergy Active Medications Medication SIG (Take, Route, Frequency, Duration) Notes Start Date End Date Status OneTouch UltraSoft Lancets DIRECTED FIVE TIMES A DAY; Duration: 90 DAYS *Please review and pick correct strength-formulati on from Mobile Complete options. If intended option is not shown, discontinue and re-order from Quick Search* 11/02/2011 Active Singulair 10 MG 1 tab(s) orally once a day (in the evening); Duration: 30 day(s) Active Januvia 100 MG 1 tab(s) orally once a day Active Alvesco 160 MCG/ACT 1 puff(s) inhaled 2 times a day; Duration: 30 day(s) Active LANCETS ( ONE TOUCH) DEVICE DIRECTED *Please review for potential replacement for e-prescription and drug interaction check* 11/07/2011 Active Flunisolide 25 MCG/ACT (0.025%) 2 puff(s) intranasally 2 times a day; Duration: 30 day(s) Active ONE TOUCH ULTRA GLUCOSE MONITOR DIRECTED DIRECTED *Please review for potential replacement for e-prescription and drug interaction check* Active ZyrTEC Allergy 10 MG 1 tab(s) orally onc e a day Active B-12 1000 MCG 1 tab(s) orally once a day; Duration: 30 day(s) Active Caltrate 600+D Plus Minerals 600-800 MG-UNIT 2 tab(s) orally 3 times a day Active Fejuvcnygd-CNCF-Rgnk eine 50-325-40 MG 1 or 2 tab(s) orally every 4 hours as needed 12/30/2011 Active Zolpidem Tartrate 5 MG 1 tab(s) orally once a day (at bedtime); Duration: 30 days Active Simvastatin 10 MG 1 tab(s) orally once a day (at bedtime) Active Lansoprazole 30 MG 1 tab(s) orally once a day at bedtime; Duration: 90 days Active metFORMIN HCl 1000 MG 1 tab(s) orally 2 times a day Active Albuterol Sulfate HFA 108 (90 Base) MCG/ACT 2 puff(s) inhaled 4 times a day Active glipiZIDE 5 MG 1 tab(s) orally twice a day Active Citalopram Hydrobromide 20 MG 1 tab(s) orally once a day Active Vitamin D3 25 MCG (1000 UT) 1 tab(s) orally once a day Active Warfarin Sodium 2 MG 5 tab(s) orally onc e a day as directed Active OneTouch Ultra DIRECTED 5 TIMES A DAY; Duration: 90 DAYS *Please review and pick correct strength-formulati on from Mobile Complete options. If intended option is not shown, discontinue and re-order from Quick Search* Active Immunizations Vaccine Route Administration Date Status Comme nts xFluzone (6mos and older)-trivalent IM Intramuscular 01/25/2012 Administered Problems Problem Type SNOMED Code ICD Code Onset Dates Problem Status W/U Status Risk Notes Problem Type II diabetes mellitus without complication (686856245) DM II [Diabetes mellitus type II] (250.00) Active confirmed Plan Of Treatment No Information Insurance Providers Payer Name Payer Address Payer Phone Subscriber Number Group Number Insured Name Patient Relationship to Insured Coverage Start Date Coverage End Date [employer] [address] [place] [address] [place] [address] [phone] [id number] Dior Hanley Self - patient is the insured Medical (General) History Medical History History ICD Code type 2 diabetes fibromyalgia DVT (multiple) onset in 1975 Memory Loss, seen by Dr. Clark in [facility]. Patient with h/o abnormal EEG asthma Surgical History Surgery Date(Month/Year) Exploratory Surgery 1982 Galbladder Removal 1984 Knee Surgery Left 1992 Hospitalization History Reason Date(Month/Year) [facility] Hospitalized Numerous times for Blood Cl ots
--- OUTSIDE RECORDS SUMMARY | 2024-12-16 09:00 | XMS_ITS | Encounter Summary ---
Author Organization [employer] ([place], [place], [place], [place]) Address [address] [place] [address] Care Team Providers Care Electronics Worker Name Role Phone Unavailable Primary Care Provider Unavailabl e Encounter Details Date Type Department Care Team (Late st Contact Info) Description 10/13/2020 Transcribed Document [facility] [place] [facility] [address] ProviderDaniela MD [address] [place] [address] [phone] Social History Tobacco Use Types Packs/Day Years Used Date Smoking Tobacco: Never Assessed Comments Unknown Sex and Gender Information Value Date Recorded Sex Assigned at Not on file Legal Sex Female 10:09 AM CDT Gender Identity Not on file Sexual Orientation Not on file documented as of this encounter Miscellaneous Notes * Cerner Conversion Note - Historical ProviderMD - 10/13/2020 3:55 AM CDT [facility] ADDRESS [place], [place] [phone] Name:Halyey Hanley Visit Date:10/12/2020 20:44:00 Emergency Department Care Providers: Physician: LEXUS BELTRAN MD Physician: Our doctors and staff appreciate your choice of [facility] for your emergency medical care. Read these instructions carefully. Please call us if you have any questions about your medical problem. [facility] Emergency Department [phone] [facility] Emergency Department [phone] [facility] Emergency Department [phone] Patient Education Materials Hayley Hanley has been [...] in ear, nose, and throat (ENT) problems (foil spinner) or a provider who specializes in disorders [...] safe for you. General instructions ??? Take dvpg-qnm-bnqbjxa and prescription medicines only as told by [...] provider. Document Revised: 09/05/2018 Document Reviewed: 09/05/2018 [employer] Patient Education ? 2019 Tissuetech. STROKE is an EMERGENCY Every Minute Counts [...] x-ray department to pick them up ? [facility] # [phone] ? [facility] # [phone] 1 [facility] # [phone] ? If you had cultures done and [...] quit. ? National Network of Tobacco Cessation CWvdmnnic5-539-HDSI-NOW 1 [place] Lung Association 2 [place] Heart Association [phone] 3 Viktor/Taqueria Jensen [phone] FINANCIAL INFORMATION ?? [facility] provides financial counseling to anyone who requests our services. ?? Emergency Physicians are independently contracted to provide your care. You will receive a bill for the care provided to you by the Physician and/or the Physician Land Leasing Information Clerk. This will be a separat e bill [...] as recommended Patient Signature / or Patient Light Cleaner Provider Signature Date documented in this encounter Plan of Treatment Not on file documented as of this encounter Visit Diagnoses Not on filedocumented in this encounter
--- OUTSIDE RECORDS SUMMARY | 2024-12-16 09:00 | XMS_ITS | Encounter Summary ---
Author Organization [employer] ([place], [place]) Address [address] [place] [address] Care Team Providers Care Sox Analyst Name Role Phone Unavailable Primary Care Provider Unavailabl e Encounter Details Date Type Department Care Team (Late st Contact Info) Description 06/06/2022 Outside Orders [facility] Outpatient Physical Therapy [address] [facility] [address] [place] [address] Oliverio Ricks MD [address] [place] [address] [address] [place] [address] Hoarseness (Primary Dx) Social History Tobacco Use [...]
--- OUTSIDE RECORDS SUMMARY | 2024-12-16 09:00 | XMS_ITS | Clinical Summary ---
[facility] Organization [facility] Address [address] [place] [address] Care Team Providers Care Personnel Consultant Name Role Phone Sierra Jerry APRN Primary Care Provid er Allergies Active Allergy Reactions Criticality Noted Date Comments Diphenhydramine Other (See Comments) Low 07/17/2018 Hypertension; only intolerant to IV form Cephalexin Itching 04/07/2023 Kzjrhjdaefj-Xpetvteky-Ruv ant Unknown - Low Severity 04/07/2023 Insulin [...] taking differently: 8 mg daily every other cru49rg Mon and Mon, Reported on 06/18/2020 glucose [...] 02/25/2020 DXA SCAN 10/22/2021 10/23/2019 COVID-19 Vaccine (2023-05 5 season) 2024 INFLUENZA VACCINE 01/08/2025 02/09/2023, , 12/31/2020, Additional [...] with insulin Routine general medical examination at [facility] facility Screening for diabetes mellitus (DM) HEPATITIS C ANTIBODY Routine 08/20/2018 12:08 PM EDT from Last 3 Months or Most Recently Relevant to Health Maintenance Results * POC Glycosylated Hemoglobin (Hb A1C) (08/28/2018 8:28 AM EDT) Hemoglobin A1C 5.2 % [facility] Blood 08/28/2018 8:28 AM EDT Dayo Estes DO POINT OF CARE TEST ORDERABLES Final Result [facility]
[address] [place] [address], [place] [phone] * Hepatitis C Antibody (08/20/2018 12:08 PM EDT) Hep C Virus Ab <0.1 0.0 - 0.9 s/co ratio [facility] Comment: Negative: < 0.8 Indeterminate: 0.8 - 0.9 Positive: > 0.9 The CDC recommends that a positive HCV antibody result be followed up with a HCV Nucleic Acid Amplification test ([id number]). 08/20/2018 12:0 8 PM EDT 08/20/2018 Narrative [facility] ([facility]) - 08/22/2018 5:35 AM EDT Performed at: [address] [place] [id number] Pressure Tester Operator: Keaton Viramontes PhD, Phone: [phone] Patient Fasting: Y Dayo Estes DO LAB BLOOD ORDERABLES Final Re sult Performing Organization Address City/[facility] Co de Phone Number [facility] [address] [place] [address], [place] [phone] [facility] [address] [place] [address], [place] [phone] from Last 3 Months or Most Recently Relevant to Health Maintenance Insurance [id number] MEDICARE REPLACE [facility] Medicare Advantage GROUP PPO Care Teams Personnel Consultant Relationship Specialty Start Date End Date Sierra Jerry APRN [address] [place] [address] PCP - General Family Medicine 04/07/23
[2024-12-16 11:30] LABS: PHA INR Fingerstick 2.8 (0.9-1.1)
== END 2024-12-16 13:18 ==
LOC: ACC 08:49
PROVIDERS: PCP Nurse Practitioner Family; Visit Provider Internal Medicine Adolescent Medicine
DX: Z79.01 Long term (current) use of anticoagulants (principal)
CPT/HCPCS: 85610; 99211; G0463

== ENCOUNTER 2024-12-23 09:56 | Outpatient (CLI) | payer MEDICARE, SELFPAY ==
--- OUTSIDE RECORDS SUMMARY | 2023-04-07 14:52 | XMS_ITS | Encounter Summary ---
[facility] [address] [place] [address] Care Team Providers Care Bushwalking Guide Name Role Phone Sierra Jerry APRN Primary Care Provid er Encounter Details Date Type Department Care Team (Late st Contact Info) Description 04/07/2023 1:52 PM EST Hospital Encounter [facility] PULMONARY & CRITICAL CARE MEDICINE [facility] [place] [address] Social History Tobacco Use Types [...] on filedocumented in this encounter Care Teams Bushwalking Guide Relationship Specialty Start Date End Date Sierra Jerry APRN [address] [place] [id number] PCP - General Family Medicine 04/07/23 documented as of this encounter
--- OUTSIDE RECORDS SUMMARY | 2024-10-31 05:00 | XMS_ITS ---
Author Organization [facility] Address [address] [facility] [address] [facility] [address] [place] [address] Care Team Providers Care Associate Programmer Name Role Phone Sierra Jerry Primary Care Provider Allergies Allergen (clinical drug ingredient) Drug/Non Drug Allergy documented on EMR Reaction Allergy Type Onset Date Status IV BENADRYL (uncoded) elevated b/p Allergy Active KEFLEX (uncoded) itching Allergy Act chelsea fluticasone / umeclidinium / vilanterol Trelegy Ellipta voiding issues Drug Allergy Active insulin glargine Toujeo SoloStar Unknown Drug Allergy Active Substance with 1-gwngpyl-9-methylgl utaryl-coenzyme A reductase inhibitor mechanism of action (substance) Statins itching Drug Allergy Active Penicillin rash Drug Allergy Active valacyclovir valACYclovir cough/wheeze Drug Allergy Active Results Component Value Reference Range Notes M-Basic Metabolic Panel Reviewed date:11/05/2024 10:14:18 AM Interpretation: Performing Lab: Notes/Report: NA 139 136-145 mmol/L K 5.5 3.5-5.1 mmoL/L CL 107 98-107 mmol/L CO2 26 22.0-30.0 mmol/L GAP 11.5 5-15 mEq/L BUN 13 7-17 mg/dl CREATT 1.10 0.52-1.04 mg/dl GFRAA 60 >60 ML/MIN EGFR 49 >60 ml/min GLU 99 74-100 mg/dl CA 9.7 8.4-10.2 mg/dl M-Cortisol Reviewed date:11/05/2024 10:14:18 AM Interpretation: Performing Lab: Notes/Report: YINKA 14.2 6.2-19.4 ug/dL Please Note: The reference interval and flagging for this test is for an AM collection. If this is a PM collection please use: Cortisol PM: 2.3-11.9 Performed at: [address] [id number] Bur[place] Operator: Keaton Viramontes PhD, Phone: [phone] REASON FOR VISIT 6 Week follow up Medications Medication SIG (Take, Route, Frequency, Duration) Notes Start Date End Date Status Lansoprazole 30 MG 1 cap(s) orally once a day; Duration: 90 days Active Citalopram Hydrobromide 40 MG 1 tab(s) orally once a day; Duration: 90 days Active Dexcom G7 Sensor 1 SENSOR DIRECTED FOR CONTINUOUS GLUCOSE MONITORING; Duration: 90 DAYS *Please review and pick correct strength-formulati on from Astrostar options. If intended option is not shown, discontinue and re-order from Quick Search* Active Meclizine HCl 25 MG 1/2 or whole tablet orally at night as needed for vertigo; Duration: 90 days Active Mounjaro 2.5 MG/0.5ML INJECT 1 SYRINGE SUBCUTANEOUSLY ONCE A WEEK; Duration: 84 Active Azelastine HCl 137 MCG/SPRAY 1 spray(s) in each nostril 2 times a day; Duration: 30 days 01/31/2024 Active Breztri Aerosphere 160 MCG-4.8 MCG-9 MCG/INH 2 PUFF(S) INHALED 2 TIMES A DAY; Duration: 84 DAYS *Please review and pick correct strength-formulati on from Astrostar options. If intended option is not shown, discontinue and re-order from Quick Search* Active ALBUTEROL (EQV-PROAIR HFA) 90 MCG/INH USE 2 INHALATIONS EVERY 6 HOURS prn *Please review for potential replacement for e-prescription and drug interaction check* Active Metoprolol Succinate ER 50 MG 1 tab(s) orally once a day; Duration: 90 days Active HumaLOG KwikPen 100 UNIT/ML inject up to 15 units with meals, not to exceed 45 units per day subcutaneously 3 times a day Active BD KELVIN 2ND GEN PEN NEEDLE 4MM X 32G FOR USE WITH INSULIN SQ BID; Duration: 90 DAYS *Please review for potential replacement for e-prescription and drug interaction check* Active Dexcom G7 Plant Technician DIRECTED CONTINUOUS GLUCOSE MONITORING; Duration: 30 DAY(S) *Please review and pick correct strength-formulati on from Nextbit Systemsan options. If intended option is not shown, discontinue and re-order from Quick Search* 07/08/2022 Active Fluticasone Propionate 50 MCG/ACT 2 spray(s) in each nostril twice daily; Duration: 10 days 06/25/2022 Active ONE TOUCH ULTRA LANCETS NA DX: E11.22 TEST TID & NEEDED; Duration: 90 DAYS *Please review for potential replacement for e-prescription and drug interaction check* 01/07/2013 Active ONE TOUCH ULTRA TEST STRIPS BLUE DX: E11.22 TEST TID & NEEDED; Duration: 90 DAYS *Please review for potential replacement for e-prescription and drug interaction check* 07/06/2013 Active Valium 5 MG 1 tab(s) orally once a day as needed for anxiety or insomnia; Duration: 90 days 08/14/2021 Active Xyzal Allergy 24HR 5 MG 1 po qd Active ONE TOUCH MINI GLUCOMETER DIRECTED *Please review for potential replacement for e-prescription and drug interaction check* 03/05/2014 Active Ipratropium-Albuter ol 0.5-2.5 (3) MG/3ML 3 mL by nebulizer TID and q6 hours prn 03/22/2018 Active PROBIOTIC FORMULA (BACILLUS COAGULANS) - 1 CAP(S) ORALLY ONCE A DAY *Please review for potential replacement for e-prescription and drug interaction check* Active Reclast 5 MG/100ML as directed intravenously once Active Warfarin Sodium 2 MG 4 tablets orally once a day; Duration: 90 days Active Lantus SoloStar 100 UNIT/ML INJECT 76 UNITS UNDER THE SKIN ONCE DAILY Active Baclofen 5 MG 1 tablet with food o r milk Orally Once a day at bedtime; Duration: 30 days 09/24/2024 Active PEN NDL KELVIN 32G X 4MM PEN NEEDLES SUBCUTANEOUSLY THREE TIMES A DAY; Duration: 90 days Active Vital Signs Temperature 97.5 degrees Fahrenheit 11/01/19 25 Blood pressure systolic 128 mm Hg 11/01/19 25 Blood pressure diastolic 56 mm Hg 025 Heart Rate 68 /min 10/31/2024 Height 64 in 10/31/2024 Weight 206.4 lbs 10/31/2024 BMI 35.42 kg/m2 10/31/2024 Encounters Encounter Location Date Provider Diagnosis [facility] [place] [address] [place] [address] 10/31/2024 Sierra Jerry Type 2 diabetes mellitus with diabetic chronic kidney disease E11.22 ; Essential hypertension I10 ; High vitamin D level E67.3 and Hyperkalemia E87.5 Assessments Encounter Date Diagnosis (ICD Code) Assessment Notes Treatment Notes Treatment Clinical Notes Section Notes 10/31/2024 Type 2 diabetes mellitus with diabetic chronic kidney disease (ICD-10 - E11.22) if labs are better today WRT renal function and potassium will plan to stay off of losartan but resume lowest dose Mounjaro with close FU and no plans for titration unless needed for diabetes control 10/31/2024 Essential hypertension (ICD-10 - I10) 10/31/2024 High vitamin D level (ICD-10 - E67.3) 10/31/2024 Hyperkalemia (ICD-10 - E87.5) Plan Of Treatment Pending Test Test Name Order Date M-Vitamin D 25 Hydroxy 10/31/2024 Next Appt Details Follow Up: 2 Months, Reason: Progress Notes * Elenita CONTRERASOB: 5 (68 yo F)Acc No.[id number]:10/31/2024 Progress Notes Patient: Dior CUNNINGHAM Provider: PARVEZ Brock :1955 A ge:68 Y S ex:Female Date:10/31/2024 Address:[address], [place], [id number] Subjective: * Chief Complaints: * 1 . 6 Week follow up. * HPI: C ardiology: 68-year-old female presents today to FU since we stopped losartan and Mounjaro due to symptoms of presyncope, PRISCILLA on labs and hyperkalemia. She feels much better overall. Glucose a little higher overall - she did resume her metformin BID. Met with Pain Management today and they have discussed epidural injections and use of compounded topical. 68 year old female presents with c/o [...] o F ever. W eakness?yes. F atigue y es. D ERMATOLOGY: no R lorena. G ASTROENTEROLOGY: [...] active: no. Travel outside [place]: no. 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 * Medications: T aking Reclast 5 [...] nostril twice daily , Taking Dexcom G7 Plant Technician DIRECTED CONTINUOUS GLUCOSE MONITORING , Notes to Pharmacist: *Please review and pick correct strength-formulation from TranslateMediaspan options. If intended option is not shown, [...] *Please review and pick correct strength-formulation from Nextbit Systemsan options. If intended option is not shown, discontinue and re-order from Quick Search*, Taking HumaLOG KwikPen 100 UNIT/ML Solution Pen-injector inject up to 15 units with meals, not to exceed 45 units per day subcutaneously 3 times a day , Taking Metoprolol Succinate ER 50 MG [...] *Please review and pick correct strength-formulation from Astrostar options. If intended option is not shown, discontinue and re-order from Quick Search*, Taking Mounjaro 2.5 MG/0.5ML Solution Auto-injector INJECT 1 SYRINGE SUBCUTANEOUSLY ONCE A WEEK , Taking PEN NDL KELVIN 32G X 4MM PEN NEEDLES SUBCUTANEOUSLY THREE TIMES A DAY , Taking Warfarin Sodium 2 MG Tablet 4 tablets orally once a day , Taking Baclofen 5 MG Tablet 1 tablet with food or milk Orally Once a day at bedtime , Taking Lantus SoloStar 100 UNIT/ML Solution Pen-injector INJECT 76 UNITS UNDER THE SKIN ONCE DAILY , Discontinued Losartan Potassium 100 MG Tablet 1/2 tab orally once a day , Medication List reviewed and reconciled with the patient * Allergies: P enicillin: rash, IV BENADRYL: elevated b/p, KEFLEX: itching, Statins: itching, valACYclovir: cough/wheeze, Trelegy Ellipta: voiding issues, Toujeo SoloStar. Objective: * Vitals: N urse: KJ, Pain: 4 hip, Temp: 97.5, RR: 16, HR: 68, BP: 128/56, Ht: 64, Wt: 206.4, BMI:35.42. * Examination: G eneral Examination: General P leasant and Cooperative, NAD on RA,. Heart: R egular Rate and Rhythm,. Lungs: c lear to auscultation,. Abdomen: S oft, NTND, BSNA, No organomegaly or peritoneal signs.. Neurologic Exam: A lert and oriented x 3. Skin: w ithout acute rashes. neck s upple,, no lymphadenopathy,, No Carotid Bruit,. Psych N ormal Mood/Affect. Assessment: * Assessment: 1. T ype 2 diabetes mellitus with diabetic chronic kidney disease - E11.22 (Primary) 2 . E ssential hypertension - I10 3 . H igh vitamin D level - E67.3? 4. H yperkalemia - E87.5 Plan: * Treatment: Value Reference Range S odium 139 136-145 - mmol/L * P otassium 5.5 H 3.5-5.1 - mmoL/L * C hloride 107 98-107 - mmol/L * C arbon Dioxide 26 22.0-30.0 - mmol/L * A nion Gap 11.5 5-15 - mEq/L * B lood Urea Nitrogen 13 7-17 - mg/dl * C reatinine,Serum 1.10 H 0.52-1.04 - mg/dl * G FR () 60 >60 - ML/MIN * E stimated Glomerular Filt Rate 49 L >60 - ml/m in * G lucose 99 74-100 - mg/dl * Jeannine Martin 11/05/2024 10:13:54 AM EDT > Patient informed. Will call back to make her follow up appointment when she is around her calendar.This lab was reviewed by Jeannine Martin on 11/05/2024 at 10:14 AM EDT ?LAB: M-Cortisol (Collection Date & Time - 10/31/2024 10:03 AM)* Value Reference Range C ortisol 14.2 6.2-19.4 - ug/dL * Jeannine Martin 11/05/2024 10:13:54 AM EDT > Patient informed. Will call back to make her follow up appointment when she is around her calendar.This lab was reviewed by Jeannine Martin on 11/05/2024 at 10:14 AM EDT Clinical Notes: if labs are better today WRT renal function and potassium will plan to stay off of losartan but resume lowest dose Mounjaro with close FU and no plans for titration unless needed for diabetes control??2.?Essential hypertension?LAB: M-Basic Metabolic Panel (Collection Date & Time - 10/31/2024 10:03 AM) * Value Reference Range S odium 139 136-145 - mmol/L * P otassium 5.5 H 3.5-5.1 - mmoL/L * C hloride 107 98-107 - mmol/L * C arbon Dioxide 26 22.0-30.0 - mmol/L * A nion Gap 11.5 5-15 - mEq/L * B lood Urea Nitrogen 13 7-17 - mg/dl * C reatinine,Serum 1.10 H 0.52-1.04 - mg/dl * G FR () 60 >60 - ML/MIN * E stimated Glomerular Filt Rate 49 L >60 - ml/m in * G lucose 99 74-100 - mg/dl * Jeannine Martin 11/05/2024 10:13:54 AM EDT > Patient informed. Will call back to make her follow up appointment when she is around her calendar.This lab was reviewed by Jeannine Martin on 11/05/2024 at 10:14 AM EDT ?LAB: M-Cortisol (Collection Date & Time - 10/31/2024 10:03 AM)* Value Reference Range C ortisol 14.2 6.2-19.4 - ug/dL * Jeannine Martin 11/05/2024 10:13:54 AM EDT > Patient informed. Will call back to make her follow up appointment when she is around her calendar.This lab was reviewed by Jeannine Martin on 11/05/2024 at 10:14 AM EDT 3.?High vitamin D level?LAB: M-Vitamin D 25 Hydroxy4.?Hyperkalemia?LAB: M-Basic Metabolic Panel (Collection Date & Time - 10/31/2024 10:03 AM) * Value Reference Range S odium 139 136-145 - mmol/L * P otassium 5.5 H 3.5-5.1 - mmoL/L * C hloride 107 98-107 - mmol/L * C arbon Dioxide 26 22.0-30.0 - mmol/L * A nion Gap 11.5 5-15 - mEq/L * B lood Urea Nitrogen 13 7-17 - mg/dl * C reatinine,Serum 1.10 H 0.52-1.04 - mg/dl * G FR () 60 >60 - ML/MIN * E stimated Glomerular Filt Rate 49 L >60 - ml/m in * G lucose 99 74-100 - mg/dl * Jeannine Martin 11/05/2024 10:13:54 AM EDT > Patient informed. Will call back to make her follow up appointment when she is around her calendar.This lab was reviewed by Jeannine Martin on 11/05/2024 at 10:14 AM EDT ?LAB: M-Cortisol (Collection Date & Time - 10/31/2024 10:03 AM)* Value Reference Range C ortisol 14.2 6.2-19.4 - ug/dL * Jeannine Martin 11/05/2024 10:13:54 AM EDT > Patient informed. Will call back to make her follow up appointment when she is around her calendar.This lab was reviewed by Jeannine Martin on 11/05/2024 at 10:14 AM EDT * Follow Up: 2 Months * * Sign off status: Completed true * Provider: PARVEZ Brock Date: 10/31/2024 Generated for Mirta lynne/Evaristo/Steveitting on: 0 12/23/2024 10:01 AM EDT History and Physical Notes * HPI (History of Present Illness) Category Sub-Category Detail Notes Category Not es Cardiology shortness of breath chest pain palpitations dizziness leg edema fatigue cyanosis diaphoresis Examination Category Sub-Category Detail Notes Category Not es General Examination Heart: Regular Rate and Rhyt hm, Lungs: clear to auscultatio n, Abdomen: Soft, NTND, BSNA, No organomegaly or peritoneal signs. Skin: without acute rashes Neurologic Exam: Alert and oriented x 3 neck supple,, no lymphade nopathy,, No Carotid Bruit, General Pleasant and Coopera tive, NAD on RA, Psych Normal Mood/Affect
--- OUTSIDE RECORDS SUMMARY | 2024-12-05 06:15 | XMS_ITS ---
Author Organization [facility] Address [address] [facility] [address] [place] [address] Care Team Providers Care Product Accountant Name Role Phone Sierra Jerry Primary Care Provider [phone] Allergies Allergen (clinical drug ingredient) Drug/Non Drug Allergy documented on EMR Reaction Allergy Type Onset Date Status IV BENADRYL (uncoded) elevated b/p Allergy Active KEFLEX (uncoded) itching Allergy Act chelsea fluticasone / umeclidinium / vilanterol Trelegy Ellipta voiding issues Drug Allergy Active insulin glargine Toujeo SoloStar Unknown Drug Allergy Active Substance with 1-ioznjvb-0-methylgl utaryl-coenzyme A reductase inhibitor mechanism of action (substance) Statins itching Drug Allergy Active Penicillin rash Drug Allergy Active valacyclovir valACYclovir cough/wheeze Drug Allergy Active Reason For Referral Reason Mamm and DEXA after 12/19/24 Diagnosis 1 Medicare annual well ness visit, subsequent (Z00.00) [facility]erral [facility] Referring Provider First Name Sierra Referring Provider Last Name Claritza Referring Provider Speciality Family Pra ctice Referred Organization [facility] Referred Address [address] [facility], [place], [place],[address],[place] Referred Provider Specialty Diagnostic R adiology General Notes Isabela Figueroa 2024 10:56:02 AM >sent to [facility] to schedule appt Referral Priority Routine [...] day; Duration: 90 days Active Dexcom G7 Jacquard Card Cutter DIRECTED CONTINUO US GLUCOSE MONITORING; Duration: 30 [...] Problem Body mass index 30.00 to 34.99 ([id number] 107) BMI 34.0-34.9,a dult (Z68.34) Active confirmed Vital Signs Temperature 97.6 degrees Fahrenheit 12/06/19 25 Blood pressure systolic 124 mm Hg 12/06/19 25 Blood pressure diastolic 60 mm Hg 025 Heart Rate 98 /min 12/05/2024 Height 64 in 12/05/2024 Weight 201.6 lbs 12/05/2024 BMI 34.6 kg/m2 12/05/2024 Encounters Encounter Location Date Provider Diagnosis [facility] [place] [address] [facility] [address] [place], [place] [address] 12/05/2024 Sierra Jerry Encounter for immunization Z23 [...] and exercise as much as tolerated recommended Pending Test Test Name Order Date DEXA Hip and Spine - Screening Mammogram: Screening 12/05/2024 Referrals Referral Date Details 12/07/2024 12/07/2024, Mamm and DEXA after 12/19/24, [address] [facility], [place], [address], Next Appt Details Follow Up: 2-3 months, Reaso n: labs Progress Notes * Dagoberto CONTRERASAjitOB: 5 (68 yo F)Acc No.[id number]:12/05/2024 Progress Notes Patient: Dior CUNNINGHAM Provider: PARVEZ Brock :1955 A ge:68 Y S ex:Female Date:12/05/2024 Address:[facility] [address] [place], [id number] Subjective: * Chief Complaints: * 1 . [...] walking for very long. Following now with [facility] pain management. Using topical compound cream [...] no. Travel outside [place]: no. 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 * Medications: T aking Reclast 5 [...] nostril twice daily , Taking Dexcom G7 Jacquard Card Cutter DIRECTED CONTINUOUS GLUCOSE MONITORING , Taking ONE [...] ormal Mood/Affect. Assessment: * Assessment: 1. M julietre annual wellness visit, subsequent - Z00.00 (Primary) [...] ostmenopausal osteoporosis - M81.0 1 5. B [place] 34.0-34.9,adult - Z68.34 Plan: * Treatment: 2. [...] for screening mammogram I maging: Mammogram: Screening 4.?Postmenopausal osteoporosis?Imaging: DEXA Hip and Spine - Screening* 5.?BMI 34.0-34.9,adult? Clinical Notes: Improving with addition of GLP1I, continue to follow, slow steady weight loss is goal?? * Immunizations: SHINGRIX : 0.5 mL (Dose No:1) (Route: Intramuscular) given by ARIELLA Martinez on Left Deltoid (Encounter for immunization) * Procedure Codes: 9 0750 SHINGRIX, [address] ADMINISTRATION IMMUNIZATION ONE VACCINE, G0439 ANNUAL WELLNESS [...] DX HTN * Preventive Medicine: Counseling: L ray will . C are goal follow up plan B [place] management provided Y es. ALANNAH Screening: F [...] 0 12/05/2024 Generated for Mirta lynne/Evaristo/eTransmitting on: 0 12/23/2024 10:02 AM EDT History and Physical Notes * [...] Date Referring Provider Referred Provider Not es 12/07/2024 Sierra Jerry , Mamm and DEX A after 12/19/24
--- OUTSIDE RECORDS SUMMARY | 2024-12-23 10:01 | XMS_ITS | Encounter Summary ---
Author Organization [employer] ([place], [place], [place], [place]) Address [address] [place] [address] Care Team Providers Care Lock Maintenance Supervisor Name Role Phone Unavailable Primary Care Provider Unavailabl e Encounter Details Date Type Department Care Team (Late st Contact Info) Description 10/13/2020 Transcribed Document [facility] Family Medicine [facility] [place] [address] ProviderDaniela MD [address] [place] [address] [id number] Social History Tobacco Use Types Packs/Day Years [...] On: 10/12/2020 20:49 EDT by Suzy Montoya Exercise Teacher Assessment Triage Date/Time : 10/12/2020 20:49 EDT Suzy Montoya Rn - 10/12/2020 20:49 EDT DCP GENERIC CODE Tracking Acuity : 3 - Urgent [facility] Tracking Group : KELLY [place] Suzy Montoya Rn - 10/12/2020 20:49 EDT [...] Preferred Communication Mode : Verbal Languages : Citizen Of [place] Child/Parent Domestic Concerns : None Threats of Suicide : No Suzy Montoya Rn - 10/12/2020 20:49 EDT Height and Weight Height Source : Stated Height Entry Format : [place] Height, Inches : 65 Inch(Converted to: 5 ft 5 Inch, 165.10 cm) Clinical Height : 165.1 cm Weight Source : Stated Type of Weight Measurement Est : [place] Weight, est lb : 220 lb Estimated Clinical Dosing Weight : 100 kg [place] Body Weight : 57 kg Body Surface [...]
--- OUTSIDE RECORDS SUMMARY | 2024-12-23 10:01 | XMS_ITS | Encounter Summary ---
Author Organization [employer] ([place], [place], [place], [place]) Address [address] [place] [address] Care Team Providers Care Traffic Director Name Role Phone Unavailable Primary Care Provider Unavailabl e Encounter Details Date Type Department Care Team (Late st Contact Info) Description 10/13/2020 Transcribed Document [facility] [address] ProviderDaniela MD [address] [place] [address] [id number] Social History Tobacco Use Types Packs/Day Years Used Date Smoking Tobacco: Never Assessed Comments Unknown Sex and Gender Information Value Date Recorded Sex Assigned at Not on file Legal Sex Female 10:09 AM CDT Gender Identity Not on file Sexual Orientation Not on file documented as of this encounter Miscellaneous Notes * Cerner Conversion Note - Historical ProviderMD - 10/13/2020 3:55 AM CDT [facility] ADDR[facility] [place], [place] [phone] Name:Hayley Hanley Visit Date:10/12/2020 20:44:00 Emergency Department Care Providers: Physician: LEXUS BELTRAN MD Physician: Our doctors and staff appreciate your choice of [facility] for your emergency medical care. Read these instructions carefully. Please call us if you have any questions about your medical problem. [facility] [place] [facility] Emergency Department [phone] [facility] Emergency Department [phone] [facility] Emergency Department [phone] Patient Education Materials Hayley Hanley has been [...] in ear, nose, and throat (ENT) problems (leather goods sales representative) or a provider who specializes in disorders [...] safe for you. General instructions ??? Take dvsa-gkf-slswbmx and prescription medicines only as told by [...] provider. Document Revised: 09/05/2018 Document Reviewed: 09/05/2018 [facility] Patient Education ? 2019 Zorap. STROKE is an EMERGENCY Every Minute Counts [...] ? [facility] [place] [facility] # [phone] ? [facility] # [phone] 1 [facility] # [phone] ? If you had cultures done and [...] quit. ? National Network of Tobacco Cessation DAttffuwr6-540-ELDX-NOW 1 [place] Lung Association 2 [place] Heart Association 3-558146-3027 3 Viktor/Taqueria Jensen [phone] FINANCIAL INFORMATION ?? [facility] provides financial counseling to anyone who requests our services. ?? Emergency Physicians are independently contracted to provide your care. You will receive a bill for the care provided to you by the Physician and/or the Physician Top Dyeing Machine Tender. This will be a separat e [...] as recommended Patient Signature / or Patient Medical Laboratory Scientist Provider Signature Date Electronically signed by Cassidy Hood Conversion Professor Of Graphic Design Aniyahner at 07/12/2022 11:38 AM CDT documented in this encounter Plan of Treatment Not on file documented as of this encounter Visit Diagnoses Not on filedocumented in this encounter
--- OUTSIDE RECORDS SUMMARY | 2024-12-23 10:01 | XMS_ITS | Encounter Summary ---
Author Organization [employer] ([place], [place], [place], [place]) Address [address] [place] [address] Care Team Providers Care Die Turner Name Role Phone Unavailable Primary Care Provider Unavailabl e Encounter Details Date Type Department Care Team (Late st Contact Info) Description 10/13/2020 Transcribed Document [facility] [place] [facility] [place] [address] ProviderDaniela MD [address] [place] [address] [phone] Social History Tobacco Use Types Packs/Day Years Used Date Smoking Tobacco: Never Assessed Comments Unknown Sex and Gender Information Value Date Recorded Sex Assigned at Not on file Legal Sex Female 10:09 AM CDT Gender Identity Not on file Sexual Orientation Not on file documented as of this encounter Miscellaneous Notes * Cerner Conversion Note - Historical ProviderMD - 10/13/2020 3:38 AM CDT [facility] AD[facility] [place], [place] [phone] Name:Hayley Hanley Visit Date:10/12/2020 20:44:00 Emergency Department Care Providers: Physician: LEXUS BELTRAN MD Physician: Our doctors and staff appreciate your choice of [facility] for your emergency medical care. Read these instructions carefully. Please call us if you have any questions about your medical problem. [facility] Emergency Department [phone] [facility] Emergency Department [phone] [facility] Emergency Department [phone] Patient Education Materials Hayley Hanley has been [...] in ear, nose, and throat (ENT) problems (internet systems administrator) or a provider who specializes in disorders [...] safe for you. General instructions ??? Take cxrg-fyb-vnajspz and prescription medicines only as told by [...] provider. Document Revised: 09/05/2018 Document Reviewed: 09/05/2018 [employer] Patient Education ? 2019 IdeaString. STROKE is an EMERGENCY Every Minute Counts [...] them up ? [facility] # [phone] ? [facility] # [phone] 1 [facility] # [phone] ? If you had cultures done and [...] quit. ? National Network of Tobacco Cessation WOmsnanvl6-982-HERU-NOW 1 [place] Lung Association 2 [place] Heart Association [phone] 3 Viktor/Taqueria Jensen [phone] FINANCIAL INFORMATION ?? [facility] provides financial counseling to anyone who requests our services. ?? Emergency Physicians are independently contracted to provide your care. You will receive a bill for the care provided to you by the Physician and/or the Physician Derrick Helper. This will be a separat e [...] as recommended Patient Signature / or Patient Log Marker Provider Signature Date Date/Time 10/12/2020 23:38 [facility] [...]
--- OUTSIDE RECORDS SUMMARY | 2024-12-23 10:01 | XMS_ITS | Encounter Summary ---
Author Organization [employer] ([place], [place], [place], [place]) Address [address] [place] [address] Care Team Providers Care Tariff Counsel Name Role Phone Unavailable Primary Care Provider Unavailabl e Encounter Details Date Type Department Care Team (Late st Contact Info) Description 10/13/2020 Transcribed Document [facility] [place] [address] ProviderDaniela MD [address] [place] [address] [phone] Social History Tobacco Use Types Packs/Day Years Used Date Smoking Tobacco: Never Assessed Comments Unknown Sex and Gender Information Value Date Recorded Sex Assigned at Not on file Legal Sex Female 10:09 AM CDT Gender Identity Not on file Sexual Orientation Not on file documented as of this encounter Miscellaneous Notes * Cerner Conversion Note - Historical ProviderMD - 10/13/2020 3:38 AM CDT [facility] Emergency Department Depart Summary PERSON INFORMATION Name Dior Hanley Age 64 Years 1955 Sex Female Language PCP Marital Status Phone [phone] Visit Id Visit Reason N and/or V Specialty Enc Type Emergency Med Service Referred by Track Group [facility] Discharge Tracking Id [id number] Checkout Checkin 10/12/2020 20:44:00 Acuity 3 - Urgent [facility] Dispo Type Arrival 10/12/2020 20:44:00 Reg Status LOS 000 02:54 Address: ALEJANDRA KENT [address] [place] [address] POWERFORM PHYSICIAN NOTES VITALS INFORMATION Vital Sign Triage Temp 98.8 Temp Route Pulse Rate 88 Respiratory Rate 18 Blood Pressure 177/ 80 LOCATION INFORMATION Arrival Nurse Unit Room Bed 10/12/2020 20:44:00 [facility] ED Waitroom ([facility]) 10/12/2020 20:47:59 [facility] ED 2 MEDICAL INFORMATION Allergy Info: [...]
--- OUTSIDE RECORDS SUMMARY | 2024-12-23 10:02 | XMS_ITS | Patient Health Record ---
Author Organization [facility] Address [address] [place] [id number] Care Team Providers Care Loan Documentation Specialist Name Role Phone Laureano Hernandez Primary Care Provider [phone] Allergies Allergen (clinical drug ingredient) Drug/Non Drug [...] review and pick correct strength-formulati on from [employer] options. If intended option is not shown, [...] tab(s) orally 3 times a day Active Nawjrgleye-BYVL-Sodb eine 50-325-40 MG 1 or 2 tab(s) [...] review and pick correct strength-formulati on from [employer] options. If intended option is not shown, discontinue and re-order from Quick Search* Active Immunizations Vaccine Route Administration Date Status Comme nts xFluzone (6mos and older)-trivalent IM Intramuscular 01/25/2012 Administered Problems Problem Type SNOMED Code ICD Code Onset Dates Problem Status W/U Status Risk Notes Problem Type II diabetes mellitus without complication (173327047) DM II [Diabetes mellitus type II] (250.00) Active confirmed Plan Of Treatment No Information Insurance Providers Payer Name Payer Address Payer Phone Subscriber Number Group Number Insured Name Patient Relationship to Insured Coverage Start Date Coverage End Date [employer] [address] [place] [address] [place] [address] [id number] Dior Hanley Self - patient is the insured Medical (General) History Medical History History ICD Code type 2 diabetes fibromyalgia DVT (multiple) onset in 1975 Memory Loss, seen by Dr. Clark in [facility]. Patient with h/o abnormal EEG asthma Surgical History Surgery Date(Month/Year) Exploratory Surgery 1982 Galbladder Removal 1984 Knee Surgery Left 1992 Hospitalization History Reason Date(Month/Year) [place] [facility] Hospitalized Numerous times for Blood Cl ots
--- OUTSIDE RECORDS SUMMARY | 2024-12-23 10:02 | XMS_ITS | Referral Summary ---
Author Organization [employer] ([place], [place], [place], [place]) Address [address] [place] [address] Care Team Providers Care Automotive General Sales Manager Name Role Phone Unavailable Primary Care [...] Treatment Not on file Insurance [place] FITZGERALD [id number] [facility] MEDICARE ADVANTAGE
--- OUTSIDE RECORDS SUMMARY | 2024-12-23 10:02 | XMS_ITS | Clinical Summary ---
[facility] Organization [facility] Address [address] [place] [address] Care Team Providers Care Feather Cutting Machine Feeder Name Role Phone Sierra Jerry APRN Primary Care Provid er Allergies Active Allergy Reactions Criticality Noted Date Comments Diphenhydramine Other (See Comments) Low 07/17/2018 Hypertension; only intolerant to IV form Cephalexin Itching 04/07/2023 Qifmhsgaihf-Tfxakiitw-Jey ant Unknown - Low Severity 04/07/2023 Insulin [...] taking differently: 8 mg daily every other obi93cz Mon and Mon, Reported on 06/18/2020 glucose [...] with insulin Routine general medical examination at [facility] Screening for diabetes mellitus (DM) HEPATITIS C ANTIBODY Routine 08/20/2018 12:08 PM EDT from Last 3 Months or Most Recently Relevant to Health Maintenance Results * POC Glycosylated Hemoglobin (Hb A1C) (08/28/2018 8:28 AM EDT) Hemoglobin A1C 5.2 % [facility] Blood 08/28/2018 8:28 AM EDT Dayo Estes DO POINT OF CARE TEST ORDERABLES Final Result [facility]
[address] [place] [address], [place] [phone] * Hepatitis C Antibody (08/20/2018 12:08 PM EDT) Hep C Virus Ab <0.1 0.0 - 0.9 s/co ratio [facility] Comment: Negative: < 0.8 Indeterminate: 0.8 - 0.9 Positive: > 0.9 The CDC recommends that a positive HCV antibody result be followed up with a HCV Nucleic Acid Amplification test ([id number]). 08/20/2018 12:0 8 PM EDT 08/20/[address] [facility] ([facility]) - 08/22/2018 5:35 AM EDT Performed at: [address] [place] [id number] Manual Training Teacher: Keaton Viramontes PhD, Phone: [phone] Patient Fasting: Y Dayo Estes DO LAB BLOOD ORDERABLES Final Re sult Performing Organization Address City/[facility] Co de Phone Number [facility] [address] [place] [address], [place] [phone] [facility] [address] [place] [address], [place] [phone] from Last 3 Months or Most Recently Relevant to Health Maintenance Insurance [employer] MEDICARE RE[facility]ACE [facility] Medicare Advantage GROUP PPO Care Teams Feather Cutting Machine Feeder Relationship Specialty Start Date End Date Sierra Jerry APRN [address] [place] [address] PCP - General Family Medicine 04/07/23
--- OUTSIDE RECORDS SUMMARY | 2024-12-23 10:02 | XMS_ITS | Encounter Summary ---
Author Organization [employer] ([place], [place], [place], [place]) Address [address] [place] [address] Care Team Providers Care Site Director Name Role Phone Unavailable Primary Care Provider Unavailabl e Encounter Details Date Type Department Care Team (Late st Contact Info) Description 10/13/2020 Transcribed Document [facility] Family Medicine [facility] [place] [address] ProviderDaniela MD [address] [place] [address] [phone] Social History Tobacco Use Types Packs/Day Years Used Date Smoking Tobacco: Never Assessed Comments Unknown Sex and Gender Information Value Date Recorded Sex Assigned at Not on file Legal Sex Female 10:09 AM CDT Gender Identity Not on file Sexual Orientation Not on file documented as of this encounter Miscellaneous Notes * Cerner Conversion Note - Historical ProviderMD - 10/13/2020 3:55 AM CDT [facility] ADDR[facility] [place], [place] [phone] Name:Hayley Hanley Visit Date:10/12/2020 20:44:00 Emergency Department Care Providers: Physician: LEXUS BELTRAN MD Physician: Our doctors and staff appreciate your choice of [facility] for your emergency medical care. Read these instructions carefully. Please call us if you have any questions about your medical problem. [facility] Emergency Department [phone] [facility] Emergency Department [phone] [facility] Emergency Department [phone] Patient Education Materials Hayley Hanley has been [...] in ear, nose, and throat (ENT) problems (paste mixing supervisor) or a provider who specializes in [...] safe for you. General instructions ??? Take jnvx-rfv-hkuejsj and prescription medicines only as told by [...] provider. Document Revised: 09/05/2018 Document Reviewed: 09/05/2018 [employer] Patient Education ? 2019 Parrable. STROKE is an EMERGENCY Every Minute Counts [...] x-ray department to pick them up ? Psychiatric # [phone] ? [facility] # [phone] 1 [facility] # [phone] ? If you had cultures done and [...] quit. ? National Network of Tobacco Cessation [id number]-YTTO-NOW 1 [place] Lung Association 2 [place] Heart Association [phone] 3 Viktor/Taqueria Jensen [phone] FINANCIAL INFORMATION ?? [facility] provides financial counseling to anyone who requests our services. ?? Emergency Physicians are independently contracted to provide your care. You will receive a bill for the care provided to you by the Physician and/or the Physician Supervisor Home Restoration Service. This will be a separat e bill [...] as recommended Patient Signature / or Patient Typing Secretary Provider Signature Date Date/Time 10/12/2020 23:55 Saint [...]
--- OUTSIDE RECORDS SUMMARY | 2024-12-23 10:02 | XMS_ITS | Encounter Summary ---
Author Organization [employer] ([place], [place], [place], [place]) Address [address] [place] [address] Care Team Providers Care Radio Equipment Repairer Name Role Phone Unavailable Primary Care Provider Unavailabl e Encounter Details Date Type Department Care Team (Late st Contact Info) Description 06/06/2022 Outside Orders [facility] Outpatient Physical Therapy [address] [facility] [address] [place] [address] Oliverio Ricks MD [address] [place] [address] [address] [place] [address] Hoarseness (Primary Dx) Social History Tobacco Use [...]
--- OUTSIDE RECORDS SUMMARY | 2024-12-23 10:02 | XMS_ITS | Clinical Summary ---
Author Organization [employer] ([place], [place], [place], [place]) Address [address] [place] [address] Care Team Providers Care Sustainable Agriculture Specialist Name Role Phone Unavailable Primary Care [...] Treatment Not on file Insurance MATTHEW FITZGERALD [id number] [facility] MEDICARE ADVANTAGE
--- OUTSIDE RECORDS SUMMARY | 2024-12-23 10:02 | XMS_ITS | Encounter Summary ---
Author Organization [employer] ([place], [place], [place]) Address [address] [place] [address] Care Team Providers Care Automotive Worker Foreman Name Role Phone Unavailable Primary Care Provider Unavailabl e Encounter Details Date Type Department Care Team (Late st Contact Info) Description 10/13/2020 Transcribed Document [facility] Family [place] [facility] [place] [address] ProviderDaniela MD [address] [place] [address] [phone] Social History Tobacco Use Types Packs/Day Years Used Date Smoking Tobacco: Never Assessed Comments Unknown Sex and Gender Information Value Date Recorded Sex Assigned at Not on file Legal Sex Female 10:09 AM CDT Gender Identity Not on file Sexual Orientation Not on file documented as of this encounter Miscellaneous Notes * Cerner Conversion Note - Historical ProviderMD - 10/13/2020 3:55 AM CDT [facility] Emergency Department Depart Summary PERSON INFORMATION Name Dior Hanley Age 64 Years 1955 Sex Female Language PCP Marital Status Phone [id number] Visit Id Visit Reason N and/or V Specialty Enc Type Emergency Med Service Referred by Track Group [facility] Discharge Tracking Id [id number] Checkout 10/12/2020 23:55:12 Checkin 10/12/2020 20:44:00 Acuity 3 - Urgent [facility] Dispo Type Arrival 10/12/2020 20:44:00 Reg Status LOS 000 03:11 Address: ALEJANDRA KENT [address] [place] [address] POWERFORMS PHYSICIAN NOTES VITALS INFORMATION Vital Sign [...]
[2024-12-23 10:13] VITALS: BP 150/69; PULSE 65; RESP 14; TEMP 36.6; O2SAT 98
[2024-12-23] MEDS: ZOLEDRONIC ACID/MANNITOL-WATER 5 MG/100 ML PGGYBK.BTL 400 MG IV (10:13)
[2024-12-23 10:30] VITALS: BP 153/67; PULSE 68; RESP 14; TEMP 36.6; O2SAT 98
== END 2024-12-23 10:36 | disposition home or self-care (01) ==
LOC: INF 09:57
PROVIDERS: PCP Nurse Practitioner Family; Visit Provider Nurse Practitioner Family
DX: I87.2 Venous insufficiency (chronic) (peripheral) (principal); J45.909 Unspecified asthma, uncomplicated; K21.9 Gastro-esophageal reflux disease without esophagitis; E78.5 Hyperlipidemia, unspecified; I12.9 Hypertensive chronic kidney disease with stage 1 through stage 4 chronic kidney disease, or unspecified chronic kidney disease; N18.2 Chronic kidney disease, stage 2 (mild); E11.22 Type 2 diabetes mellitus with diabetic chronic kidney disease; D63.1 Anemia in chronic kidney disease; J31.0 Chronic rhinitis; G25.81 Restless legs syndrome; D50.9 Iron deficiency anemia, unspecified
CPT/HCPCS: 96374; J3489

== ENCOUNTER 2024-12-25 11:24 | Outpatient (CLI) | payer MEDICARE, SELFPAY ==
--- OUTSIDE RECORDS SUMMARY | 2023-04-07 14:52 | XMS_ITS | Encounter Summary ---
[facility] Address [address] [place] [address] Care Team Providers Care Game Farm Helper Name Role Phone Sierra Jerry APRN Primary Care Provid er Encounter Details Date Type Department Care Team (Late st Contact Info) Description 04/07/2023 1:52 PM EST Hospital Encounter [facility] PULMONARY & CRITICAL CARE MEDICINE [facility] [place] [address] Social History Tobacco Use Types [...] on filedocumented in this encounter Care Teams Game Farm Helper Relationship Specialty Start Date End Date Sierra Jerry APRN [address] [place] [id number] PCP - General Family Medicine 04/07/23 documented as of this encounter
--- OUTSIDE RECORDS SUMMARY | 2024-12-25 11:26 | XMS_ITS | Encounter Summary ---
Author Organization [employer] ([place], [place], [place], [place]) Address [address] [place] [address] Care Team Providers Care Customer Service Clerk Name Role Phone Unavailable Primary Care Provider Unavailabl e Encounter Details Date Type Department Care Team (Late st Contact Info) Description 10/13/2020 Transcribed Document [facility] [place] [facility] [place] [address] ProviderDaniela MD [address] [place] [address] [phone] Social History Tobacco Use Types Packs/Day Years [...] On: 10/12/2020 20:49 EDT by Suzy Montoya Head Of Quality Assessment Triage Date/Time : 10/12/2020 20:49 EDT Suzy Montoya Rn - 10/12/2020 20:49 EDT DCP GENERIC CODE Tracking Acuity : 3 - Urgent [facility] Tracking Group : KELLY Napoleon Suzy Montoya Rn - 10/12/2020 20:49 EDT [...] Preferred Communication Mode : Verbal Languages : Kiswahili Child/Parent Domestic Concerns : None Threats of Suicide : No Suzy Montoya Rn - 10/12/2020 20:49 EDT Height and Weight Height Source : Stated Height Entry Format : [place] Height, Inches : 65 Inch(Converted to: 5 ft 5 Inch, 165.10 cm) Clinical Height : 165.1 cm Weight Source : Stated Type of Weight Measurement Est : [place] Weight, est lb : 220 lb Estimated Clinical Dosing Weight : 100 kg [place] Body Weight : 57 kg Body Surface [...]
--- OUTSIDE RECORDS SUMMARY | 2024-12-25 11:27 | XMS_ITS | Encounter Summary ---
Author Organization [employer] ([place], [place], [place], [place]) Address [address] [place] [address] Care Team Providers Care Patients Transporter Name Role Phone Unavailable Primary Care Provider Unavailabl e Encounter Details Date Type Department Care Team (Late st Contact Info) Description 10/13/2020 Transcribed Document [facility] [place] Family Medicine [facility] [place] [address] ProviderDaniela MD [address] [place] [address] [id number] Social History Tobacco Use Types Packs/Day Years Used Date Smoking Tobacco: Never Assessed Comments Unknown Sex and Gender Information Value Date Recorded Sex Assigned at Not on file Legal Sex Female 10:09 AM CDT Gender Identity Not on file Sexual Orientation Not on file documented as of this encounter Miscellaneous Notes * Cerner Conversion Note - Historical ProviderMD - 10/13/2020 3:55 AM CDT [facility] ADDRESS [place], [place] [phone] Name:Hayley Hanley Visit Date:10/12/2020 20:44:00 Emergency Department Care Providers: Physician: LEXUS BELTRAN MD Physician: Our doctors and staff appreciate your choice of [facility] for your emergency medical care. Read these instructions carefully. Please call us if you have any questions about your medical problem. [facility] Emergency Department [phone] [facility] Emergency Department [phone] [facility] Emergency Department [phone] Patient Education Materials Hayley Hanley has been [...] in ear, nose, and throat (ENT) problems (mine analyst) or a provider who specializes in disorders [...] safe for you. General instructions ??? Take acva-dxr-hkcpjqa and prescription medicines only as told by [...] provider. Document Revised: 09/05/2018 Document Reviewed: 09/05/2018 [employer] Patient Education ? 2019 [employer]. STROKE is an EMERGENCY Every Minute Counts [...] ? [facility] # [phone] ? [facility] # [phone] 1 [facility] # [phone] ? If you had cultures done and [...] quit. ? National Network of Tobacco Cessation OHpauchri9-072-ZVRB-NOW 1 [place] Lung Association 2 [employer] [place] Heart Association [phone] 3 Viktor/Taqueria Jensen [phone] FINANCIAL INFORMATION ?? [facility] provides financial counseling to anyone who requests our services. ?? Emergency Physicians are independently contracted to provide your care. You will receive a bill for the care provided to you by the Physician and/or the Physician Keyboard Operator. This will be a separat e [...] as recommended Patient Signature / or Patient Product Mgr Provider Signature Date Date/Time 10/12/2020 23:55 Saint [...]
--- OUTSIDE RECORDS SUMMARY | 2024-12-25 11:27 | XMS_ITS | Encounter Summary ---
Author Organization [employer] ([place], [place], [place], [place]) Address [address] [place] [address] Care Team Providers Care Avionics Safety Inspector Name Role Phone Unavailable Primary Care Provider Unavailabl e Encounter Details Date Type Department Care Team (Late st Contact Info) Description 10/13/2020 Transcribed Document [facility] [place] [facility] [place] [address] ProviderDaniela MD [address] [place] [address] [id number] Social History Tobacco Use Types Packs/Day Years Used Date Smoking Tobacco: Never Assessed Comments Unknown Sex and Gender Information Value Date Recorded Sex Assigned at Not on file Legal Sex Female 10:09 AM CDT Gender Identity Not on file Sexual Orientation Not on file documented as of this encounter Miscellaneous Notes * Cerner Conversion Note - Historical ProviderMD - 10/13/2020 3:55 AM CDT [facility] Emergency Department Depart Summary PERSON INFORMATION Name Dior Hanley Age 64 Years 1955 Sex Female Language PCP Marital Status Phone [id number] Visit Id Visit Reason N and/or V Specialty Enc Type Emergency Med Service Referred by Track Group [facility] Discharge Tracking Id [id number] Checkout 10/12/2020 23:55:12 Checkin 10/12/2020 20:44:00 Acuity 3 - Urgent [facility] Dispo Type Arrival 10/12/2020 20:44:00 Reg Status LOS 000 03:11 Address: ALEJANDRA KENT [address] [place] [address] POWERFORMS PHYSICIAN NOTES VITALS INFORMATION Vital Sign Triage Temp 98.8 Temp Route Pulse Rate 88 Respiratory Rate 18 Blood Pressure 177/ 80 LOCATION INFORMATION Arrival Nurse Unit Room Bed 10/12/2020 20:44:00 [facility] ED Waitroom ([facility]) 10/12/2020 20:47:59 [facility] ED 2 10/12/2020 23:55:12 [facility] ED Checkout ([facility]) MEDICAL INFORMATION Allergy Info: Benadryl; penicillin; [...]
--- OUTSIDE RECORDS SUMMARY | 2024-12-25 11:27 | XMS_ITS | Referral Summary ---
Author Organization [employer] ([place], [place], [place], [place]) Address [address] [place] [address] Care Team Providers Care Goggles Assembler Name Role Phone Unavailable Primary Care [...] Treatment Not on file Insurance MATTHEW FITZGERALD [id number] [facility] MEDICARE ADVANTAGE
--- OUTSIDE RECORDS SUMMARY | 2024-12-25 11:27 | XMS_ITS | Encounter Summary ---
Author Organization [employer] ([place], [place], [place], [place]) Address [address] [place] [address] Care Team Providers Care Stop Attacher Name Role Phone Unavailable Primary Care Provider Unavailabl e Encounter Details Date Type Department Care Team (Late st Contact Info) Description 10/13/2020 Transcribed Document [facility] [place] [facility] [place] [address] ProviderDaniela MD [address] [place] [address] [phone] Social History Tobacco Use Types Packs/Day Years Used Date Smoking Tobacco: Never Assessed Comments Unknown Sex and Gender Information Value Date Recorded Sex Assigned at Not on file Legal Sex Female 10:09 AM CDT Gender Identity Not on file Sexual Orientation Not on file documented as of this encounter Miscellaneous Notes * Cerner Conversion Note - Historical ProviderMD - 10/13/2020 3:38 AM CDT [facility] ADDRESS [place], [place] [phone] Name:Hayley Hanley Visit Date:10/12/2020 20:44:00 Emergency Department Care Providers: Physician: LEXUS BELTRAN MD Physician: Our doctors and staff appreciate your choice of [facility] for your emergency medical care. Read these instructions carefully. Please call us if you have any questions about your medical problem. [facility] Emergency Department [phone] [facility] Emergency Department [phone] [facility] Emergency Department [phone] Patient Education Materials Hayley Hanley has been [...] in ear, nose, and throat (ENT) problems (commercial correspondent) or a provider who specializes in disorders [...] safe for you. General instructions ??? Take ctsj-fah-zztkzyj and prescription medicines only as told by [...] provider. Document Revised: 09/05/2018 Document Reviewed: 09/05/2018 [employer] Patient Education ? 2019 [employer]. STROKE is an EMERGENCY Every Minute Counts [...] x-ray department to pick them up ? [facility] # [phone] ? [facility] # [phone] 1 [facility] # [phone] ? If you had cultures done and [...] quit. ? National Network of Tobacco Cessation [id number]-BLNT-NOW 1 [place] Lung Association 2 [place] Heart Association [phone] 3 Viktor/Taqueria Jensen [phone] FINANCIAL INFORMATION ?? [facility] provides financial counseling to anyone who requests our services. ?? Emergency Physicians are independently contracted to provide your care. You will receive a bill for the care provided to you by the Physician and/or the Physician Accident Examiner. This will be a separat e bill [...] as recommended Patient Signature / or Patient Drivematic Machine Operator Provider Signature Date Date/Time 10/12/2020 23:38 Saint [...]
--- OUTSIDE RECORDS SUMMARY | 2024-12-25 11:27 | XMS_ITS | Clinical Summary ---
Author Organization [email or web address] ([place], [place], [place], [place]) Address [address] [place] [address] Care Team Providers Care Sort Supervisor Name Role Phone Unavailable Primary Care [...] Treatment Not on file Insurance MATTHEW FITZGERALD [id number] [facility] MEDICARE ADVANTAGE
--- OUTSIDE RECORDS SUMMARY | 2024-12-25 11:27 | XMS_ITS | Clinical Summary ---
[facility] Address [address] [place] [address] Care Team Providers Care Special Police Name Role Phone Sierra Jerry APRN Primary Care Provid er Allergies Active Allergy Reactions Criticality Noted Date Comments Diphenhydramine Other (See Comments) Low 07/17/2018 Hypertension; only intolerant to IV form Cephalexin Itching 04/07/2023 Rbrcobkbuej-Xdwqhuwal-Vsf ant Unknown - Low Severity 04/07/2023 Insulin [...] taking differently: 8 mg daily every other ocy14je Mon and Mon, Reported on 06/18/2020 glucose [...] with insulin Routine [facility] Screening for diabetes mellitus (DM) HEPATITIS C ANTIBODY Routine 08/20/2018 12:08 PM EDT from Last 3 Months or Most Recently Relevant to Health Maintenance Results * POC Glycosylated Hemoglobin (Hb A1C) (08/28/2018 8:28 AM EDT) Hemoglobin A1C 5.2 % [facility] Blood 08/28/2018 8:28 AM EDT Dayo Estes DO POINT OF CARE TEST ORDERABLES Final Result [facility]
[address] [place] [address], [place] [phone] * Hepatitis C Antibody (08/20/2018 12:08 PM EDT) Hep C Virus Ab <0.1 0.0 - 0.9 s/co ratio [facility] Comment: Negative: < 0.8 Indeterminate: 0.8 - 0.9 Positive: > 0.9 The CDC recommends that a positive HCV antibody result be followed up with a HCV Nucleic Acid Amplification test (178515). 08/20/2018 12:0 8 PM EDT 08/20/2018 Narrative [facility] - 08/22/2018 5:35 AM EDT Performed at: [address] [place] [address] [id number] Clinical Dietician: Keaton Viramontes PhD, Phone: [phone] Patient Fasting: Y Dayo Estes DO LAB BLOOD ORDERABLES Final Re sult Performing Organization Address City/[facility] Co de Phone Number [facility] [address] [place] [address], [place] [phone] [facility] [address] [place] [address], [place] [phone] from Last 3 Months or Most Recently Relevant to Health Maintenance Insurance [id number] MEDICARE [facility] Medicare Advantage GROUP PPO Care Teams Special Police Relationship Specialty Start Date End Date Sierra Jerry APRN [address] [place] [address] PCP - General Family Medicine 04/07/23
--- OUTSIDE RECORDS SUMMARY | 2024-12-25 11:27 | XMS_ITS | Encounter Summary ---
Author Organization [employer] ([place], [place], [place], [place]) Address [address] [place] [address] Care Team Providers Care Fence Installer Foreman Name Role Phone Unavailable Primary Care Provider Unavailabl e Encounter Details Date Type Department Care Team (Late st Contact Info) Description 10/13/2020 Transcribed Document [facility] [place] [facility] [place] [address] ProviderDaniela MD [address] [place] [address] [phone] Social History Tobacco Use Types Packs/Day Years Used Date Smoking Tobacco: Never Assessed Comments Unknown Sex and Gender Information Value Date Recorded Sex Assigned at Not on file Legal Sex Female 10:09 AM CDT Gender Identity Not on file Sexual Orientation Not on file documented as of this encounter Miscellaneous Notes * Cerner Conversion Note - Historical ProviderMD - 10/13/2020 3:55 AM CDT [facility] ADDRESS [place], [place] [phone] Name:Hayley Hanley Visit Date:10/12/2020 20:44:00 Emergency Department Care Providers: Physician: LEXUS BELTRAN MD Physician: Our doctors and staff appreciate your choice of [facility] for your emergency medical care. Read these instructions carefully. Please call us if you have any questions about your medical problem. [facility] Emergency Department [phone] [facility] Emergency Department [phone] [facility] Emergency Department [phone] Patient Education Materials Hayley Hanley has been [...] in ear, nose, and throat (ENT) problems (operations controller) or a provider who specializes in disorders [...] safe for you. General instructions ??? Take wbtq-mrl-dhdsleg and prescription medicines only as told by [...] provider. Document Revised: 09/05/2018 Document Reviewed: 09/05/2018 [employer] Patient Education ? 2019 [employer]. STROKE is an EMERGENCY Every Minute Counts [...] department to pick them up ? [facility] # [phone] ? [facility] # [phone] 1 [facility] # [phone] ? If you had cultures done and [...] quit. ? National Network of Tobacco Cessation [id number]-RUKT-NOW 1 [place] Lung Association 2 [place] Heart Association [phone] 3 Viktor/Taqueria Jensen [phone] FINANCIAL INFORMATION ?? [facility] provides financial counseling to anyone who requests our services. ?? Emergency Physicians are independently contracted to provide your care. You will receive a bill for the care provided to you by the Physician and/or the Physician Bunch Maker Hand. This will be a separat e bill [...] as recommended Patient Signature / or Patient Broadband Technician Provider Signature Date Electronically signed by Cassidy Hood Conversion Asw/Asuw Tactical Air Controller Aniyahner at 07/12/2022 11:38 AM CDT documented in this encounter Plan of Treatment Not on file documented as of this encounter Visit Diagnoses Not on filedocumented in this encounter
--- OUTSIDE RECORDS SUMMARY | 2024-12-25 11:27 | XMS_ITS | Encounter Summary ---
Author Organization [employer] ([place], [place], [place], [place]) Address [address] [place] [address] Care Team Providers Care Activities Specialist Name Role Phone Unavailable Primary Care Provider Unavailabl e Encounter Details Date Type Department Care Team (Late st Contact Info) Description 06/06/2022 Outside Orders [facility] Outpatient Physical Therapy [address] [facility] [address] [place] [address] Oliverio Ricks MD [address] [place] [address] [address] [place] [address] Hoarseness (Primary Dx) Social History Tobacco Use [...]
--- OUTSIDE RECORDS SUMMARY | 2024-12-25 11:27 | XMS_ITS | Encounter Summary ---
Author Organization [employer] ([place], [place], [place], [place]) Address [address] [place] [address] Care Team Providers Care Manual Lathe Operator Name Role Phone Unavailable Primary Care Provider Unavailabl e Encounter Details Date Type Department Care Team (Late st Contact Info) Description 10/13/2020 Transcribed Document [facility] [place] [facility] [place] [address] ProviderDaniela MD [address] [place] [address] [id number] Social History Tobacco Use Types Packs/Day Years Used Date Smoking Tobacco: Never Assessed Comments Unknown Sex and Gender Information Value Date Recorded Sex Assigned at Not on file Legal Sex Female 10:09 AM CDT Gender Identity Not on file Sexual Orientation Not on file documented as of this encounter Miscellaneous Notes * Cerner Conversion Note - Historical ProviderMD - 10/13/2020 3:38 AM CDT [facility] Emergency Department Depart Summary PERSON INFORMATION Name Dior Hanley Age 64 Years 1955 Sex Female Language PCP Marital Status Phone [id number] Visit Id Visit Reason N and/or V Specialty Enc Type Emergency Med Service Referred by Track Group [facility] Discharge Tracking Id [id number] Checkout Checkin 10/12/2020 20:44:00 Acuity 3 - Urgent [facility] Dispo Type Arrival 10/12/2020 20:44:00 Reg Status LOS 000 02:54 Address: ALEJANDRA KENT [address] [place] [address] POWERFORM PHYSICIAN NOTES VITALS INFORMATION Vital Sign Triage Temp 98.8 Temp Route Pulse Rate 88 Respiratory Rate 18 Blood Pressure 177/ 80 LOCATION INFORMATION Arrival Nurse Unit Room Bed 10/12/2020 20:44:00 [facility] ED Waitroom ([facility]) 10/12/2020 20:47:59 [facility] ED 2 MEDICAL INFORMATION Allergy [...]
--- NOTE | 2024-12-25 11:36 | XR_ITS ---
FINAL REPORT CLINICAL HISTORY: neck pain FINDINGS: CERVICAL SPINE Three views were obtained. There is no acute fracture. There is mild diffuse degenerative disc disease. There is mild anterolisthesis of C5 on 6 and C6 on 7. IMPRESSION: Anterolisthesis of C5 on 6 and C6 on 7. Reviewed, Interpreted and Dictated by Leyla Irene MD Transcribed by Cayla Wade Authenticated and [facility]
== END 2024-12-25 23:59 | disposition home or self-care (01) ==
LOC: RAD 11:25
PROVIDERS: PCP Nurse Practitioner Family; Visit Provider Nurse Practitioner Family
DX: M43.12 Spondylolisthesis, cervical region (principal)
CPT/HCPCS: 72040

== ENCOUNTER 2025-01-01 09:18 | Outpatient (CLI) | payer MEDICARE, SELFPAY ==
--- OUTSIDE RECORDS SUMMARY | 2023-04-07 14:52 | XMS_ITS | Encounter Summary ---
[facility] Address [address] [place] [address] Care Team Providers Care Beauty Artist Name Role Phone Sierra Jerry APRN Primary Care Provid er Encounter Details Date Type Department Care Team (Late st Contact Info) Description 04/07/2023 1:52 PM EST Hospital Encounter [facility] PULMONARY & CRITICAL CARE MEDICINE [facility] [place] [address] Social History Tobacco Use Types [...] on filedocumented in this encounter Care Teams Beauty Artist Relationship Specialty Start Date End Date Sierra Jerry APRN [address] [place] [id number] PCP - General Family Medicine 04/07/23 documented as of this encounter
--- OUTSIDE RECORDS SUMMARY | 2024-12-05 06:15 | XMS_ITS ---
Author Organization [facility] Address [address] [facility] [address] [place] [address] Care Team Providers Care Abrasive Mixer Name Role Phone Sierra Jerry Primary Care Provider Allergies Allergen (clinical drug ingredient) Drug/Non Drug Allergy documented on EMR Reaction Allergy Type Onset Date Status IV BENADRYL (uncoded) elevated b/p Allergy Active KEFLEX (uncoded) itching Allergy Act chelsea fluticasone / umeclidinium / vilanterol Trelegy Ellipta voiding issues Drug Allergy Active insulin glargine Toujeo SoloStar Unknown Drug Allergy Active Substance with 9-zbkrofb-1-methylgl utaryl-coenzyme A reductase inhibitor mechanism of action (substance) Statins itching Drug Allergy Active Penicillin rash Drug Allergy Active valacyclovir valACYclovir cough/wheeze Drug Allergy Active Reason For Referral Reason Mamm and DEXA after 12/19/24 Diagnosis 1 Medicare annual well ness visit, subsequent (Z00.00) Referral Organization [facility] Referring Provider First Name Sierra Referring Provider Last Name Claritza Referring Provider Speciality Family Pra ctice Referred Organization [facility] Referred Address [address] [facility], [place], [place],[address],[place] Referred Provider Specialty Diagnostic R adiology General Notes Isabela Figueroa 2024 10:56:02 AM >sent to [facility] to schedule appt Referral Priority Routine REASON [...] day; Duration: 90 days Active Dexcom G7 Helicopter Pilot Instructor DIRECTED CONTINUO US GLUCOSE MONITORING; Duration: 30 [...] Problem Body mass index 30.00 to 34.99 ([id number] 107) BMI 34.0-34.9,a dult (Z68.34) Active confirmed Vital Signs Temperature 97.6 degrees Fahrenheit 12/06/19 25 Blood pressure systolic 124 mm Hg 12/06/19 25 Blood pressure diastolic 60 mm Hg 025 Heart Rate 98 /min 12/05/2024 Height 64 in 12/05/2024 Weight 201.6 lbs 12/05/2024 BMI 34.6 kg/m2 12/05/2024 Encounters Encounter Location Date Provider Diagnosis [facility] [address] [facility] [address] [place], [place] [address] 12/05/2024 Sierra Jerry Encounter for immunization Z23 [...] DEXA after 12/19/24, [address] [facility], [place], [address], Next Appt Details Follow Up: 2-3 months, Reaso n: labs Progress Notes * Dagoberto CONTRERASAjitOB: 5 (68 yo F)Acc No.[id number]:12/05/2024 Progress Notes Patient: Dior CUNNINGHAM Provider: PARVEZ Brock :1955 A ge:68 Y S ex:Female Date:12/05/2024 Address:[facility] [address] [place] [place], [place]-[address] Subjective: * Chief Complaints: * 1 . [...] walking for very long. Following now with [facility] pain management. Using topical compound cream which [...] active: no. Travel outside [place]: no. 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 * Medications: T aking [...] nostril twice daily , Taking Dexcom G7 Helicopter Pilot Instructor DIRECTED CONTINUOUS GLUCOSE MONITORING , Taking ONE [...] ostmenopausal osteoporosis - M81.0 1 5. B [place] 34.0-34.9,adult - Z68.34 Plan: * Treatment: 2. [...] immunization) * Procedure Codes: 9 0750 [place], [address] ADMINISTRATION IMMUNIZATION ONE VACCINE, G0439 ANNUAL WELLNESS [...] C are goal follow up plan B [place] management provided Y es. ALANNAH Screening: F [...] Brock Date: 0 12/05/2024 Generated for Mirta lynne/Evaristo/eTranfangitting on: 0 01/01/2025 09:27 AM EDT History and Physical Notes * [...]
--- NOTE | 2025-01-01 09:20 | MM_ITS ---
PROCEDURE INFORMATION: Exam: MG Bilateral Screening 3D Mammography Exam date and time: 01/01/2025 9:47 AM Age: 69 years old Clinical indication: Screening examination TECHNIQUE: Imaging protocol: Bilateral Screening tomosynthesis and 2D mammography including computer-aided detection (CAD) when performed. COMPARISON: 1. MG MM DIG SCREENING MAMM BI W/CAD 12/20/2023 2:33 PM 2. MG MM DIG SCREENING MAMM BI W/CAD 08/31/2022 9:47 AM FINDINGS: MAMMOGRAPHY: Breast composition: The breasts are almost entirely fatty. Mass: No suspicious masses. Architectural distortion: None. Calcifications: No suspicious calcifications. Asymmetric density: None. Skin thickening: None. Axillary adenopathy: None. IMPRESSION: No mammographic evidence of malignancy. Annual screening is recommended unless otherwise clinically indicated. ASSESSMENT: BI-RADS Category 1: Negative.
--- NOTE | 2025-01-01 09:20 | XR_ITS ---
FINAL REPORT TECHNIQUE: Bone densitometry calculations of the lumbar spine and left hip were obtained. CLINICAL HISTORY: screening COMPARISON: 12/20/2023 FINDINGS: Using L1-4, the bone mineral density of the spine is 1.092 g/cm2, corresponding to T-score of 0.4 and a Z score of 2.5. This is within the range of normal limits. Previously was 1.029 with a T-score of -0.2. Using the left hip, the bone mineral density of the femoral neck is 0.612 g/cm2, corresponding to a T-score of -2.1 and a Z-score of -0.3. This is within the range of osteopenia. Previously this was 0.589 with a T-score of -2.3. NOTE: T-score: Standard deviation compared with peak bone mass of young adult mean. *Following the recommendations of the International Society of Bone densitometry, classification of hip BMD is based on the lower of two T-scores; total hip or femoral neck. IMPRESSION: 1. Bone mineral density of the lumbar spine within the range of normal limit. 2. Bone mineral density of the left femoral neck within the range of osteopenia. Reviewed, Interpreted and Dictated by Reyna Orozco MD Transcribed by Duyen Gomez Authenticated and [facility]
--- OUTSIDE RECORDS SUMMARY | 2025-01-01 09:27 | XMS_ITS | Encounter Summary ---
Author Organization [employer] ([place], [place], [place], [place]) Address [address] [place] [address] Care Team Providers Care Booky Name Role Phone Unavailable Primary Care Provider Unavailabl e Encounter Details Date Type Department Care Team (Late st Contact Info) Description 10/13/2020 Transcribed Document [facility] [place] [facility] [place] [address] ProviderDaniela MD [address] [place] [address] [phone] Social History Tobacco Use Types Packs/Day Years [...] 3:38 AM CDT [facility] ADDRESS [place], [place] [phone] Name:Hayley Hanley Visit Date:10/12/2020 20:44:00 Emergency Department Care Providers: Physician: LEXUS BELTRAN MD Physician: Our doctors and staff appreciate your choice of [facility] for your emergency medical care. Read these instructions carefully. Please call us if you have any questions about your medical problem. [facility] Emergency Department [phone] [facility] Emergency Department [phone] [facility] Emergency Department [phone] Patient Education Materials Hayley Hanley has been [...] in ear, nose, and throat (ENT) problems (digital sales planner) or a provider who specializes in disorders [...] safe for you. General instructions ??? Take zmlh-prq-prtgrvz and prescription medicines only as told by [...] provider. Document Revised: 09/05/2018 Document Reviewed: 09/05/2018 [employer] Patient Education ? 2019 [employer]. STROKE is an EMERGENCY Every Minute Counts [...] x-ray department to pick them up ? [facility] # [phone] ? [facility] # [phone] 1 [facility] # [phone] ? If you had cultures done and [...] quit. ? National Network of Tobacco Cessation [id number]-LQON-NOW 1 [place] Lung Association 2 [place] Heart Association [phone] 3 Viktor/Taqueria Jensen [phone] FINANCIAL INFORMATION ?? [facility] provides financial counseling to anyone who requests our services. ?? Emergency Physicians are independently contracted to provide your care. You will receive a bill for the care provided to you by the Physician and/or the Physician Clinical Biostatistician. This will be a separat e bill [...] recommended Patient Signature / or Patient Network Systems Engineer Provider Signature Date Date/Time 10/12/2020 23:38 Saint [...]
--- OUTSIDE RECORDS SUMMARY | 2025-01-01 09:27 | XMS_ITS | Encounter Summary ---
Author Organization [employer] ([place], [place], [place], [place]) Address [address] [place] [address] Care Team Providers Care Rug Cutter Helper Name Role Phone Unavailable Primary Care Provider Unavailabl e Encounter Details Date Type Department Care Team (Late st Contact Info) Description 10/13/2020 Transcribed Document [facility] [place] [facility] [place] [address] ProviderDaniela MD [address] [place] [address] [phone] Social History Tobacco Use Types Packs/Day Years [...] - 10/13/2020 3:55 AM CDT [facility] Emergency Department Depart Summary PERSON INFORMATION Name Dior Hanley Age 64 Years 1955 Sex Female Language PCP Marital Status Phone [phone] Visit Id Visit Reason N and/or V Specialty Enc Type Emergency Med Service Referred by Track Group [facility] Discharge Tracking Id [id number] Checkout 10/12/2020 23:55:12 Checkin 10/12/2020 20:44:00 Acuity 3 - Urgent [facility] Dispo Type Arrival 10/12/2020 20:44:00 Reg Status LOS 000 03:11 Address: ALEJANDRA KENT [address] [place] [address] POWERFORMS PHYSICIAN NOTES VITALS INFORMATION Vital Sign Triage Temp 98.8 Temp Route Pulse Rate 88 Respiratory Rate 18 Blood Pressure 177/ 80 LOCATION INFORMATION Arrival Nurse Unit Room Bed 10/12/2020 20:44:00 [facility] ED Waitroom ([facility]) 10/12/2020 20:47:59 [facility] ED 2 10/12/2020 23:55:12 [facility] ED Checkout ([facility]) MEDICAL INFORMATION Allergy Info: Benadryl; penicillin; [...]
--- OUTSIDE RECORDS SUMMARY | 2025-01-01 09:27 | XMS_ITS | Clinical Summary ---
Author Organization Healthcare Address [address] [place] [address] Care Team Providers Care Installation Specialist Name Role Phone Unavailable Primary Care Provider Unavailabl e Encounters Date Type Department Care Team Description 12/26/2024 Community Orders [facility] [address] [place] [address] Kailyn Hendrickson MD Obstructive sleep apnea (adult) (pediatric) (Primary Dx) from Last 3 Months Social History Tobacco Use Types Packs/Day Years Used Date Smoking Tobacco: Never Assessed Comments Unknown Sex and Gender Information Value Date Recorded Sex Assigned at Not on file Legal Sex Female 8:34 PM EDT Gender Identity Not on file Sexual Orientation Not on file Plan of Treatment Not on file
--- OUTSIDE RECORDS SUMMARY | 2025-01-01 09:27 | XMS_ITS | Encounter Summary ---
Author Organization Healthcare Address [address] [id number] Care Team Providers Care [facility] Social Worker Name Role Phone Unavailable Primary Care Provider Unavailabl e Reason for Referral * Consultation (Routine) - Authorized Specialty Diagnoses / Procedures Referred By Contac t Referred To Contact Dentist / Pain Medicine Diagnoses Obstructive sleep apnea (adult) (pediatric) Kailyn Hendrickson MD [address] [place] [address] Phone: tel: fax: Zneaida Whitaker, DDS [address] [facility] [address] [place] [address] Phone: tel: fax: Referral ID Status Reason Start Date Expiration Date V isits Requested Visits Authorized [id number] Authorized 12/26/2024 06/27/2026 1 1 Encounter Details Date Type Department Care Team (Late st Contact Info) Description 12/26/2024 [facility] [address] [place] [address] Kailyn Hendrickson MD [address] [place] [address] Obstructive sleep apnea (adult) (pediatric) (Primary Dx) Social History Tobacco Use Types Packs/Day Years Used Date Smoking Tobacco: Never Assessed Comments Unknown Sex and Gender Information Value Date Recorded Sex Assigned at Not on file Legal Sex Female 8:34 PM EDT Gender Identity Not on file Sexual Orientation Not on file documented as of this encounter Plan of Treatment Scheduled Referrals Name Type Priority Associated Diagnoses Order Schedule Ambulatory Referral to Orofacial Pain Outpatient Referral Routine Obstructive sleep apnea (adult) (pediatric) Expected: 12/26/2024 (Approximate), Expires: 06/29/2026 documented as of this encounter Visit Diagnoses Diagnosis Obstructive sleep apnea (adult) (pediatric)- Primary documented in this encounter
--- OUTSIDE RECORDS SUMMARY | 2025-01-01 09:27 | XMS_ITS | Patient Health Record ---
Author Organization [facility] Address [address] [place] [address] Care Team Providers Care Incident Response Coordinator Name Role Phone ClaritzaSierra Primary Care Provider [phone] Sierra Guy Unavailable [phone] Migration, Provider Unavailable Unavailable Allergies Allergen (clinical drug ingredient) Drug/Non Drug Allergy documented on EMR Reaction Allergy Type Onset Date Status IV BENADRYL (uncoded) elevated b/p Allergy Active KEFLEX (uncoded) itching Allergy Act chelsea fluticasone / umeclidinium / vilanterol Trelegy Ellipta voiding issues Drug Allergy Active insulin glargine Toujeo SoloStar Unknown Drug Allergy Active Substance with 8-rvlhvwl-0-methylgl utaryl-coenzyme A reductase inhibitor mechanism of action [...] ALP 52 38-126 U/L M-Hemoglobin A1C Reviewed date:03/25/2024 03:01:31 PM Interpretation: Performing Lab: Notes/Report: HGBA1C 7.4 4.0-6.0 % < 6% Non-Diabetic Level < 7% Controlled Diabetic Level > 8% Poorly Controlled Diabetic Level M-Lipid Panel Reviewed date:09/24/2024 10:43:30 AM Interpretation: Performing Lab: Notes/Report: Patient Fasting? Y TRIG 152 30-150 mg/dl CHOL 214 140-200 mg/dl DLDL 107.92 100-129 mg/dL VLDL 30 0-40 mg/dL HDL 42 40-60 mg/dl CHLHDL 5.1 1-3.5 Microalbumin (In-House) Reviewed date:03/21/2024 01:23:40 PM Interpretation:Normal [...] date:05/06/2024 03:25:25 PM Interpretation: Performing Lab: Notes/Report: M-PHA INR Fingerstick Reviewed date:10/07/2024 09:53:20 AM [...] CLINIC IN PCI/CLINICAL REVIEW INDICATION INR RANGE M-Comprehensive Metabolic Pa hui Reviewed date:09/24/2024 10:43:29 [...] 99 74-100 mg/dl CA 9.7 8.4-10.2 mg/dl M-Basic Metabolic Panel Reviewed date:10/09/2024 12:00:19 PM Interpretation: Performing Lab: Notes/Report: NA 132 136-145 mmol/L K 5.6 3.5-5.1 mmoL/L CL 99 98-107 mmol/L CO2 22 22.0-30.0 mmol/L GAP 16.6 5-15 mEq/L BUN 14 7-17 mg/dl CREATT 1.10 0.52-1.04 mg/dl GFRAA 60 >60 ML/MIN EGFR 49 >60 ml/min GLU 206 74-100 mg/dl CA 9.2 8.4-10.2 mg/dl M-Complete Blood Count Auto Diff Reviewed date:09/24/2024 [...] 0.02 M-Complete Blood Count Auto Diff Reviewed date:10/09/2024 [...] 0 IG% 0.3 NRBC# 0 IG# 0.02 H-TVITD Reviewed date:09/24/2024 09:50:52 AM Interpretation: Performing Lab: Notes/Report: TVITD 110 30-100 ng/mL Deficient <20 ng/mL Insufficient 20-30 ng/mL Sufficient 30-100 ng/mL Potential Toxicity >100 ng/mL H-FETIBC Reviewed date:09/24/2024 09:51:08 AM Interpretation: Performing Lab: Notes/Report: FE 60 37-170 ug/dL DTIBC 382 265-497 ug/dL IRONSAT 15.63905 15-55 % H-VITB12 Reviewed date:09/24/2024 09:50:35 AM Interpretation: Performing Lab: Notes/Report: VITB12 410 239-931 pg/mL M-PHA INR Fingerstick Reviewed date:02/13/2024 [...] 2.5 - 3.5 VALVE; PREVENTION OF SYSTEMIC X ray : Spines, Thoracic Spi ne Reviewed date:05/10/2024 02:16:14 PM Interpretation: Performing Lab: Notes/Report: M-Cortisol Reviewed date:11/05/2024 10:14:18 AM Interpretation: Performing Lab: Notes/Report: YINKA 14.2 6.2-19.4 ug/dL Please Note: The reference interval and flagging for this test is for an AM collection. If this is a PM collection please use: Cortisol PM: 2.3-11.9 Performed at: [facility] [address] [id number] [employer] Salesperson: Keaton Viramontes PhD, Phone: [phone] M-Ferritin Reviewed date:09/24/2024 10:43:30 AM Interpretation: Performing Lab: Notes/Report: FERNANDO 24.1 11.1-264 ng/ml M-Magnesium Reviewed date:10/09/2024 12:00:19 PM Interpretation: Performing Lab: Notes/Report: MG 2.4 1.6-2.3 mg/dl M-Magnesium Reviewed date:09/24/2024 10:43:29 AM Interpretation: Performing Lab: Notes/Report: MG 1.9 1.6-2.3 mg/dl M-Hemoglobin A1C Reviewed date:09/24/2024 10:43:29 AM Interpretation: Performing Lab: Notes/Report: HGBA1C 7.3 4.0-6.0 % < 6% Non-Diabetic Level < 7% Controlled Diabetic Level > 8% Poorly Controlled Diabetic Level M-Complete Blood Count Auto Diff Reviewed date:03/25/2024 [...] 0.2 0.0-0.4 K/mm3 BA# 0.0 0-0.2 K/mm3 H-TVITD Reviewed date:10/31/2024 05:37:47 PM Interpretation: Performing Lab: Notes/Report: TVITD 68.7 30-100 ng/mL Deficient <20 ng/mL Insufficient 20-30 ng/mL Sufficient 30-100 ng/mL Potential Toxicity >100 ng/mL MRI : Lumbar Spine w/o contr ast Reviewed date:10/04/2024 02:30:25 PM Interpretation: Performing Lab: Notes/Report: M-PHA INR Fingerstick Reviewed date:03/13/2024 09:25:58 PM [...] SECONDARY TO AMI M-PHA INR Fingerstick Reviewed date:11/04/2024 08:05:51 PM [...] SECONDARY TO AMI M-PHA INR Fingerstick Reviewed date:12/16/2024 02:15:34 PM Interpretation: Performing Lab: Notes/Report: POCINRFS 2.8 0.9-1.1 Results sent to: Colby Andrade MD [...] Duration) Notes Start Date End Date Status Semadic G7 Line Cook DIRECTED CONTINUO US GLUCOSE MONITORING; Duration: 30 [...] TIMES A DAY; Duration: 84 DAYS Active Metoprolol Succinate ER 50 MG 1 tab(s) orally once a day; Duration: 90 days Active Ipratropium-Albuterol 0.5-2.5 (3) MG/3ML 3 mL by nebulizer TID and q6 hours prn 03/22/2018 Active Valium 5 MG 1 tab(s) orally once a day as needed for anxiety or insomnia; Duration: 90 days 08/14/2021 Acti ve BD KELVIN 2ND GEN PEN NEEDLE 4MM X 32G FOR USE WITH INSULIN SQ BID; Duration: 90 DAYS Active Fluticasone Propionate 50 MCG/ACT 2 spray(s) in each nostril twice daily; Duration: 10 days 06/25/2022 Active Lantus SoloStar 100 UNIT/ML INJECT 76 UNITS UNDER THE SKIN ONCE DAILY Active Mounjaro 2.5 MG/0.5ML INJECT 1 PEN SUBCU TANEOUSLY ONCE A WEEK; Duration: 84 Active Meclizine HCl 25 MG 1/2 or whole tablet orally at night as needed for vertigo; Duration: 90 days Activ e Reclast 5 MG/100ML as directed intraven ously once Active Lansoprazole 30 MG 1 cap(s) orally once a day; Duration: 90 days Active Xyzal Allergy 24HR 5 MG 1 po qd Active Citalopram Hydrobromide 40 MG 1 tab(s) orally once a day; Duration: 90 days Active Albuterol Sulfate HFA 108 (90 Base) MCG/ACT 1 puff as needed Inhalation every 6 hours for shortness of breath; Duration: 90 days 12/07/2024 Active ONE TOUCH MINI GLUCOMETER DIRECTED 03/05/2014 Active PROBIOTIC FORMULA (BACILLUS COAGULANS) - 1 CAP(S) ORALLY ONCE A DAY Active HumaLOG KwikPen 100 UNIT/ML inject up [...] ce a day; Duration: 90 days Active Baclofen 5 MG 1 tablet with food o r milk Orally Once a day at bedtime; Duration: 30 days 09/24/2024 Activ e Immunizations Vaccine Route Administration Date Status Comme nts SHINGRIX IM Intramuscular 12/05/2024 Administered Pneumovax 23 IM Intramuscular 12/31/2020 Administered [...] Status Risk Notes Problem Diabetic renal disease (886673770) Type 2 diabetes mellitus with diabetic chronic kidney disease (E11.22) Active confirmed Problem Hyperglycemia due to type 2 diabetes mellitus (837489588312844) Type 2 diabetes mellitus with hyperglycemia (E11.65) Active confirmed Problem Chronic pain (01428426) Other chronic pain (G89.29) Active confirmed Problem Chronic rhinitis (78748006) Chronic rhinitis (J31.0) Active confirmed Problem Sciatica (98609873) Lumbago with sciatica, left side (M54.42) Active confirmed Problem Chronic kidney disease stage 2 (207440363) Chronic kidney disease, stage 2 (mild) (N18.2) Active confirmed Problem Screening for malignant neoplasm of breast (224968627) Encounter for screening mammogram for malignant neoplasm of breast (Z12.31) Active confirmed Problem Mixed anxiety and depressive disorder (489518648) Depression with anxiety (F41.8) Active confirmed Problem Vitamin D deficiency (21230951) Vitamin D deficiency (E55.9) Active confirmed Problem Essential hypertension (34501389) Essential hypertension (I10) Active confirmed Problem Vitamin B12 deficiency (non anemic) (31604506) B12 deficiency (E53.8) Active confirmed Problem Restless legs syndrome (87363900) Restless leg syndrome (G25.81) Active confirmed Problem Allergic rhinitis (94029526) Chronic allergic rhinitis (J30.9) Active confirmed Problem Body mass index 30.00 to 34.99 (342005094749636) BMI 34.0-34.9,adult (Z68.34) Active confirmed Problem Long-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 (802614534) USP (current) use of insulin (Z79.4) Active confirmed Problem Chronic pain (55453362) Other chronic pain (G89.29) Active confirmed Problem Obese class II (890406673642182) BMI 38.0-38.9,adult (Z68.38) Active confirmed Problem Gastroesophageal reflux disease without esophagitis (839228045) Gastroesophageal reflux disease without esophagitis (K21.9) Active confirmed Problem Postmenopausal state (17396579) Post menopausal syndrome (Z78.0) Active confirmed Problem Obese class II (277618204474382) BMI 37.0-37.9, adult (Z68.37) Active confirmed Problem Obese class II (607504720067064) BMI 36.0-36.9,adult (Z68.36) Active confirmed Problem Arthritis of hip (16108475) Hip arthritis (M19.90) Active confirmed Problem Anxiety (68391170) Situational anxiety (F41.8) Active confirmed Problem Peripheral venous insufficiency (00118679) Venous (peripheral) insufficiency (I87.2) Active confirmed Problem Major depression, single episode (76691128) Depression, reactive (F32.9) Active confirmed Problem Localized, primary osteoarthritis of the pelvic region and thigh (850851612) 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) Active confirmed Problem Ventricular premature complex (disorder) (773548558) PVC (premature ventricular contraction) (I49.3) Active confirmed Problem Moderate persistent asthma (462213288) Asthma, moderate persistent (J45.40) Active confirmed Problem Recurrent deep vein thrombosis (DVT) of both lower extremities (I82.403) Active confirmed Problem Spondylosis without myelopathy (11775762) Arthritis of back (M47.9) Active confirmed Problem Obstructive sleep apnea syndrome (38374633) MARYAM on CPAP (G47.33) Active confirmed Problem Postmenopausal osteoporosis (375585852) Postmenopausal osteoporosis (M81.0) Active confirmed Problem Mixed hyperlipidemia (338959777) Mixed dyslipidemia (E78.2) Active confirmed Problem Moderate major depression, single episode (31451196) Current moderate episode of major depressive disorder without prior episode (F32.1) Active confirmed Problem History of iron deficiency (520821587) History of iron deficiency (Z86.39) Active confirmed Problem 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) Active confirmed Problem Anticoagulant therapy (967880113) Anticoagulated on Coumadin (Z79.01) Active confirmed Problem Arthropathy of right sacroiliac joint (52007230571067704 ) Arthropathy of right sacroiliac joint (M47.818) Active confirmed Problem Low back pain (588465348) Low back pain, unspecified (M54.50) Active confirmed Problem Arthritis of hip (61525151) Arthritis of hip (M16.10) Active confirmed Problem Hypervitaminosis D (38799149) High vitamin D level (E67.3) Active confirmed Problem Iron deficiency anemia (58864078) Iron deficiency anemia (D50.9) Problem resolved confirmed Vital Signs Heart Rate 98 /min 12/05/2024 Temperature 97.6 degrees Fahrenheit 12/05/2024 Oximetry 96 04/05/2024 O2 sat 96% RA. Blood pressure diastolic 60 mm Hg 12/05/2024 Height 64 in 12/05/2024 Blood pressure systolic 124 mm Hg 12/05/2024 Weight 201.6 lbs 12/05/2024 BMI 34.6 kg/m2 12/05/2024 Encounters Encounter Location Date Provider Diagnosis [facility] [place] [address] [facility] [address] [place] [address] 07/13/2024 Provider Migration Type 2 diabetes mellitus with diabetic chronic kidney disease E11.22 [facility] [place] [address] [place] [address] 02/08/2024 Sierra Jerry Type 2 diabetes mellitus with diabetic chronic kidney disease E11.22 ; Subacute sinusitis, unspecified location J01.90 and Nasal congestion R09.81 [facility] [place] [address] [place] [address] 03/21/2024 Sierra Claritza Type 2 diabetes mellitus with diabetic chronic kidney disease E11.22 ; Right flank pain R10.9 ; Chronic rhinitis J31.0 ; Immunization(s) administered Z23 ; Recurrent deep vein thrombosis (DVT) of both lower extremities I82.403 and Essential hypertension I10 [facility] [place] [address] [place] [address] 04/05/2024 Sierrayulia GoGuy Acute recurrent frontal sinusitis J01.11 [facility] [place] [address] [place] [address] 05/02/2024 Sierra Claritza Low back pain, unspecified M54.50 ; Other chronic pain G89.29 and Type 2 diabetes mellitus with diabetic chronic kidney disease E11.22 [facility] [place] [address] [place] [address] 09/23/2024 Sierra Claritza Type 2 diabetes mellitus with [...] side M54.42 and Other chronic pain G89.29 [facility] [place] [address] [place] [address] 10/07/2024 Sierra Claritza Type 2 diabetes mellitus with diabetic chronic kidney disease E11.22 ; Pre-syncope R55 ; Essential hypertension I10 ; History of iron deficiency Z86.39 and Hyperkalemia E87.5 [facility] [place] [address] [facility] [address] [place], [place] [address] 10/31/2024 [facility] Type 2 diabetes mellitus with diabetic chronic kidney disease E11.22 ; Essential hypertension I10 ; High vitamin D level E67.3 and Hyperkalemia E87.5 [facility] [place] [address] [facility] [address] [place], [place] [address] 12/05/2024 [facility] Encounter for immunization Z23 ; Chronic kidney [...] Postmenopausal osteoporosis M81.0 and BMI 34.0-34.9,adult Z68.34 [facility] [place] [address] [facility] [address] [place], [place] [address] 01/22/2024 [facility] Type 2 diabetes mellitus with hyperglycemia E11.65 [facility] [place] [address] [facility] [address] [place] [address] 01/22/2024 [facility] [place] [address] [facility] [address] [place] [address] 01/23/2024 [facility] Type 2 diabetes mellitus with hyperglycemia E11.65 [facility] [place] [address] [facility] [address] [place] [address] 01/31/2024 [facility] [address] [place] [address] 03/11/2024 [facility] Type 2 diabetes mellitus with diabetic chronic kidney disease E11.22 [facility] [place] [address] [facility] [address] [place], [place] [address] 03/25/2024 [facility] Type 2 diabetes mellitus with diabetic chronic kidney disease E11.22 [facility] [place] [address] [place] [address] 05/02/2024 Sierra Claritza [facility] [place] [address] [place] [address] 05/06/2024 Sierra Claritza Arthritis of back M47.9 [facility] [place] [address] [place] [address] 05/08/2024 Sierra Claritza Mid back pain M54.9 [facility] [place] [address] [place] [address] 05/23/2024 [facility] Type 2 diabetes mellitus with diabetic chronic kidney disease E11.22 [facility] [place] [address] [place] [address] 06/27/2024 Sierra Claritza [facility] [place] [address] [place] [address] 07/15/2024 Sierra Claritza [facility] [place] [address] [place] [address] 09/23/2024 Sierra Claritza [facility] [place] [address] [place] [address] 09/24/2024 Sierra Claritza [facility] [place] [address] [place] [address] 09/24/2024 [facility] Type 2 diabetes mellitus with diabetic chronic kidney disease E11.22 [facility] [place] [address] [place] [address] 09/25/[facility] Lumbago with sciatic a, left side M54.42 [facility] [place] [address] [place] [address] 10/24/2024 Sierra Claritza [facility] [place] [address] [place] [address] 12/11/2024 Sierra Claritza Assessments Encounter Date Diagnosis (ICD Code) Assessment Notes Treatment Notes Treatment Clinical Notes Section Notes 01/22/2024 Type 2 diabetes mellitus with hyperglycemia [...] control 10/31/2024 Essential hypertension (ICD-10 - I10) 12/05/2024 Encounter for immunization (ICD-10 - Z23) 10/31/2024 High vitamin D level (ICD-10 - E67.3) 12/05/2024 Chronic kidney disease, stage 2 (mild) (ICD-10 - N18.2) 10/07/2024 Essential hypertension (ICD-10 - I10) 09/23/2024 Essential hypertension (ICD-10 - I10) well controlled on current regimen 03/21/2024 Chronic rhinitis (ICD-10 - J31.0) 02/08/2024 Nasal congestion (ICD-10 - R09.81) 05/02/2024 Type 2 diabetes mellitus with diabetic chronic kidney disease (ICD-10 - E11.22) 03/21/2024 Immunization(s) administered (ICD-10 - Z23) 10/07/2024 History of iron deficiency (ICD-10 - Z86.39) 09/23/2024 History of iron deficiency (ICD-10 - Z86.39) 10/31/2024 Hyperkalemia (ICD-10 - E87.5) 12/05/2024 Type 2 diabetes mellitus with diabetic chronic kidney disease (ICD-10 - E11.22) 12/05/2024 Medicare annual wellness visit, subsequent (ICD-10 [...] exercise as much as tolerated recommended 12/05/2024 Mixed dyslipidemia (ICD-10 - E78.2) 10/07/2024 Hyperkalemia (ICD-10 - E87.5) 09/23/2024 Restless leg syndrome (ICD-10 - G25.81) 03/21/2024 Recurrent deep vein thrombosis (DVT) of both lower extremities (ICD-10 - I82.403) following with coumadin clinic, no significant issues since adding Trulicity 03/21/2024 Essential hypertension (ICD-10 - I10) well controlled on current regimen 09/23/2024 Vitamin D deficiency (ICD-10 - E55.9) 12/05/2024 Venous (peripheral) insufficiency (ICD-10 - I87.2) 12/05/2024 Asthma, moderate persistent (ICD-10 - J45.40) 09/23/2024 B12 deficiency (ICD-10 - E53.8) 09/23/2024 Mixed dyslipidemia (ICD-10 - E78.2) 12/05/2024 Recurrent deep vein thrombosis (DVT) of both lower extremities (ICD-10 - I82.403) 12/05/2024 Essential hypertension (ICD-10 - I10) 09/23/2024 Acute non-recurrent maxillary sinusitis (ICD-10 - J01.00) 09/23/2024 Lumbago with sciatica, left side (ICD-10 - M54.42) 12/05/2024 B12 deficiency (ICD-10 - E53.8) 12/05/2024 Vitamin D deficiency (ICD-10 - E55.9) 09/23/2024 Other chronic pain (ICD-10 - G89.29) 12/05/2024 Depression, reactive (ICD-10 - F32.9) 12/05/2024 Visit for screening mammogram (ICD-10 - Z12.31) 12/05/2024 Postmenopausal osteoporosis (ICD-10 - M81.0) 12/05/2024 BMI 34.0-34.9,adult (ICD-10 - Z68.34) Improving with addition of GLP1I, continue to follow, slow steady weight loss is goal Plan Of Treatment Pending Test Test Name Order Date MRI : Shoulder, Right 09/19/2013 Barium Swallow 12/14/2017 H-CRP 02/15/2012 EEG 03/07/2012 DEXA Hip and Spine - Screening EKG : In House 08/08/2023 Echocardiogram 06/20/2014 [...] H-FERRITIN 11/26/2014 H-CMP 03/20/2017 H-CMP 07/24/2017 H-CMP 11/30/2015 H-CMP 08/31/2015 H-CMP 06/20/2014 H-CMP 11/26/2014 H-MAGNESIUM 06/20/2014 H-LIPID PANEL 11/26/2014 H-LIPID PANEL 07/24/2017 H-LIPID PANEL 08/31/2015 H-LIPID PANEL 03/20/2017 H-LIPID PANEL 02/17/2014 H-HGBA1C 11/30/2015 H-HGBA1C 08/31/2015 H-HGBA1C 07/24/2017 H-HGBA1C 11/26/2014 H-TSH 06/20/2014 H-TSH 07/24/2017 H-VIT D, 25-HYDROXY 07/24/2017 H-VIT D, 25-HYDROXY 08/31/2015 H-MICROALBUMIN URINE 08/31/2015 H-RADHA PROFILE 06/20/2014 H-ANTI PHOSPHOLIPID ANTIBODY 02/15/2012 Pulmonary Function Test- Complete 2020 H-VITAMIN C 06/20/2014 M-Complete Blood Count Auto Diff 019 M-Complete Blood Count Auto Diff 020 M-Complete Blood Count Auto Diff 024 M-D-Dimer 11/30/2020 M-Comprehensive Metabolic Panel 12/26/19 20 M-Comprehensive Metabolic Panel 12/28/19 M-Comprehensive Metabolic Panel 11/30/19 24 M-Hemoglobin A1C 12/27/2018 M-Hemoglobin A1C 12/26/2019 M-Hemoglobin A1C 11/30/2023 M-Lipid Panel 11/30/2023 M-Lipid Panel 12/26/2019 M-Lipid Panel 12/27/2018 M-Vitamin B12 12/27/2018 M-Vitamin B12 07/09/2020 M-Vitamin B12 02/09/2023 M-Vitamin B12 11/30/2023 M-Vitamin B12 09/23/2024 M-Vitamin D 25 Hydroxy 10/31/2024 M-Vitamin D 25 Hydroxy 11/30/2023 M-Vitamin D 25 Hydroxy 09/23/2024 M-Vitamin D 25 Hydroxy 02/09/2023 M-Vitamin D 25 Hydroxy 07/09/2020 M-Vitamin D 25 Hydroxy 12/27/2018 M-Iron and TIBC 09/23/2024 M-Microalb/Creat Ratio, [facility] Ur 024 M-Microalb/Creat Ratio, [facility] Ur 023 M-Microalb/Creat Ratio, [facility] Ur 019 M-Microalb/Creat Ratio, [facility] Ur 020 M-Microalb/Creat Ratio, [facility] Ur 018 M-Microalb/Creat Ratio, [facility] Ur 019 Mammogram: Screening 12/05/2024 Physical Therapy Eval and Treat 07/11/19 24 Physical Therapy Eval and Treat 05/06/19 25 Future Test Test Name Order Date H-BMP 07/09/2012 Insurance Providers Payer Name Payer Address Payer Phone Subscriber Number Group Number Insured Name Patient Relationship to Insured Coverage Start Date Coverage End Date [employer] MED[employer]ARE [address] [address] [place] [address] [id number] Dior Hanley Self - patient is the [...]
--- OUTSIDE RECORDS SUMMARY | 2025-01-01 09:27 | XMS_ITS | Encounter Summary ---
Author Organization [facility] ([place], [place], [place], [place]) Address [address] [place] [address] Care Team Providers Care Geriatric Social Worker Name Role Phone Unavailable Primary Care Provider Unavailabl e Encounter Details Date Type Department Care Team (Late st Contact Info) Description 06/06/2022 Outside Orders [facility] Outpatient Physical Therapy [address] [facility] [address] [place] [address] Oliverio Ricks MD [address] [place] [address] [address] [place] [address] Hoarseness (Primary Dx) Social History Tobacco Use [...]
--- OUTSIDE RECORDS SUMMARY | 2025-01-01 09:27 | XMS_ITS | Encounter Summary ---
Author Organization [employer] ([place], [place], [place], [place]) Address [address] [place] [address] Care Team Providers Care Pharmacoepidemiologist Name Role Phone Unavailable Primary Care Provider Unavailabl e Encounter Details Date Type Department Care Team (Late st Contact Info) Description 10/13/2020 Transcribed Document [facility] [place] [address] ProviderDaniela MD [address] [place] [address] [phone] Social History Tobacco Use Types Packs/Day Years [...] On: 10/12/2020 20:49 EDT by Suzy Montoya Calibrator Barometers Assessment Triage Date/Time : 10/12/2020 20:49 EDT Suzy Montoya Rn - 10/12/2020 20:49 EDT DCP GENERIC CODE Tracking Acuity : 3 - Urgent [facility] Tracking Group : KELLY Hardtner Suzy Montoya Rn - 10/12/2020 20:49 EDT [...] Preferred Communication Mode : Verbal Languages : Turkmen Child/Parent Domestic Concerns : None Threats of Suicide : No Suzy Montoya Rn - 10/12/2020 20:49 EDT Height and Weight Height Source : Stated Height Entry Format : [place] Height, Inches : 65 Inch(Converted to: 5 ft 5 Inch, 165.10 cm) Clinical Height : 165.1 cm Weight Source : Stated Type of Weight Measurement Est : [place] Weight, est lb : 220 lb Estimated Clinical Dosing Weight : 100 kg [place] Body Weight : 57 kg Body Surface [...]
--- OUTSIDE RECORDS SUMMARY | 2025-01-01 09:27 | XMS_ITS | Encounter Summary ---
Author Organization [employer] ([place], [place], [place], [place]) Address [address] [place] [address] Care Team Providers Care Engraver Seals Name Role Phone Unavailable Primary Care Provider Unavailabl e Encounter Details Date Type Department Care Team (Late st Contact Info) Description 10/13/2020 Transcribed Document [facility] [place] [facility] [place] [address] ProviderDaniela MD [address] [place] [address] [phone] Social History Tobacco Use Types Packs/Day Years Used Date Smoking Tobacco: Never Assessed Comments Unknown Sex and Gender Information Value Date Recorded Sex Assigned at Not on file Legal Sex Female 10:09 AM CDT Gender Identity Not on file Sexual Orientation Not on file documented as of this encounter Miscellaneous Notes * Cerner Conversion Note - Historical ProviderMD - 10/13/2020 3:55 AM CDT [facility] ADDRESS [phone] Name:Hayley Hanley Visit Date:10/12/2020 20:44:00 Emergency Department Care Providers: Physician: LEXUS BELTRAN MD Physician: Our doctors and staff appreciate your choice of [facility] for your emergency medical care. Read these instructions carefully. Please call us if you have any questions about your medical problem. [facility] Emergency Department [phone] [facility] Emergency Department [phone] [facility] Emergency Department [phone] Patient Education Materials Hayley Hanley has been [...] in ear, nose, and throat (ENT) problems (personnel supervisor) or a provider who specializes in [...] safe for you. General instructions ??? Take pqxp-nvw-rgkkszt and prescription medicines only as told by [...] provider. Document Revised: 09/05/2018 Document Reviewed: 09/05/2018 Rukuku Patient Education ? 2019 [employer]. [facility] is an EMERGENCY Every Minute Counts [...] x-ray department to pick them up ? [facility] # [phone] ? [facility] # [phone] 1 [facility] # [phone] ? If you had cultures done and [...] quit. ? National Network of Tobacco Cessation GZaxwfcfv8-555-NXQG-NOW 1 [place] [employer] Association 2 [place] Heart Association [phone] 3 Viktor/Taqueria Jensen [phone] FINANCIAL INFORMATION ?? [facility] provides financial counseling to anyone who requests our services. ?? Emergency Physicians are independently contracted to provide your care. You will receive a bill for the care provided to you by the Physician and/or the Physician Doughnut Maker. This will be a separat e bill [...] as recommended Patient Signature / or Patient Offender Job Retention Specialist Provider Signature Date documented in this encounter Plan of Treatment Not on file documented as of this encounter Visit Diagnoses Not on filedocumented in this encounter
--- OUTSIDE RECORDS SUMMARY | 2025-01-01 09:27 | XMS_ITS | Encounter Summary ---
Author Organization [employer] ([place], [place], [place], [place]) Address [address] [place] [address] Care Team Providers Care Stacker Attendant Name Role Phone Unavailable Primary Care Provider Unavailabl e Encounter Details Date Type Department Care Team (Late st Contact Info) Description 10/13/2020 Transcribed Document [facility] [place] [facility] [place] [address] ProviderDaniela MD [address] [place] [address] [phone] Social History Tobacco Use Types Packs/Day Years Used Date Smoking Tobacco: Never Assessed Comments Unknown Sex and Gender Information Value Date Recorded Sex Assigned at Not on file Legal Sex Female 10:09 AM CDT Gender Identity Not on file Sexual Orientation Not on file documented as of this encounter Miscellaneous Notes * Cerner Conversion Note - Historical ProviderMD - 10/13/2020 3:55 AM CDT [facility] ADDRESS [place], [place] [phone] Name:Hayley Hanley Visit Date:10/12/2020 20:44:00 Emergency Department Care Providers: Physician: LEXUS BELTRAN MD Physician: Our doctors and staff appreciate your choice of [facility] for your emergency medical care. Read these instructions carefully. Please call us if you have any questions about your medical problem. [facility] Emergency Department [phone] [facility] Emergency Department [phone] [facility] Emergency Department [phone] Patient Education Materials Hayley Hanley has been [...] in ear, nose, and throat (ENT) problems (thread grinder tool) or a provider who specializes in disorders [...] safe for you. General instructions ??? Take phwy-wqq-jxhpaqh and prescription medicines only as told by [...] provider. Document Revised: 09/05/2018 Document Reviewed: 09/05/2018 [employer] Patient Education ? 2019 Loud[employer]. [facility] is an EMERGENCY Every Minute Counts [...] them up ? [facility] # [phone] ? [facility] # [phone] 1 [facility] # [phone] ? If you had cultures done and [...] quit. ? National Network of Tobacco Cessation WYxltulrr6-161-VPGH-NOW 1 [place] Lung Association 2 [place] Heart Association 7-815080-0978 3 Viktor/Taqueria Jensen [phone] FINANCIAL INFORMATION ?? [facility] provides financial counseling to anyone who requests our services. ?? Emergency Physicians are independently contracted to provide your care. You will receive a bill for the care provided to you by the Physician and/or the Physician Clinical Review Specialist. This will be a separat e bill [...] as recommended Patient Signature / or Patient Quarter Inspector Provider Signature Date Date/Time 10/12/2020 23:55 [facility] [...]
--- OUTSIDE RECORDS SUMMARY | 2025-01-01 09:27 | XMS_ITS | Encounter Summary ---
Author Organization [employer] ([place], [place], [place], [place]) Address [address] [place] [address] Care Team Providers Care Terminal Operations Manager Name Role Phone Unavailable Primary Care Provider Unavailabl e Encounter Details Date Type Department Care Team (Late st Contact Info) Description 10/13/2020 Transcribed Document [facility] [place] [address] ProviderDaniela MD [address] [place] [address] [phone] Social History Tobacco Use Types Packs/Day Years Used Date Smoking Tobacco: Never Assessed Comments Unknown Sex and Gender Information Value Date Recorded Sex Assigned at Not on file Legal Sex Female 10:09 AM CDT Gender Identity Not on file Sexual Orientation Not on file documented as of this encounter Miscellaneous Notes * Cerner Conversion Note - Historical ProviderMD - 10/13/2020 3:38 AM CDT [facility] Emergency Department Depart Summary PERSON INFORMATION Name Dior Hanley Age 64 Years 1955 Sex Female Language PCP Marital Status Phone [phone] Visit Id Visit Reason N and/or V Specialty Enc Type Emergency Med Service Referred by [employer] [facility] Discharge Tracking Id [id number] Checkout Checkin 10/12/2020 20:44:00 Acuity 3 - Urgent [facility] Dispo Type Arrival 10/12/2020 20:44:00 Reg Status LOS 000 02:54 Address: ALEJANDRA KENT [address] [place] [address] POWERFORM PHYSICIAN NOTES VITALS INFORMATION Vital Sign Triage Temp 98.8 Temp Route Pulse Rate 88 Respiratory Rate 18 Blood Pressure 177/ 80 LOCATION INFORMATION Arrival Nurse Unit Room Bed 10/12/2020 20:44:00 [facility] ED Waitroom ([facility]) 10/12/2020 20:47:59 [facility] ED 2 MEDICAL INFORMATION Allergy [...]
--- OUTSIDE RECORDS SUMMARY | 2025-01-01 09:28 | XMS_ITS | Referral Summary ---
Author Organization [employer] ([place], [place], [place], [place]) Address [address] [place] [address] Care Team Providers Care Roving Frame Tender Name Role Phone Unavailable Primary Care Provider [...] Treatment Not on file Insurance MATTHEW FITZGERALD [id number] [facility] MEDICARE ADVANTAGE
--- OUTSIDE RECORDS SUMMARY | 2025-01-01 09:28 | XMS_ITS | Clinical Summary ---
[facility] Organization [facility] Address [address] [place] [address] Care Team Providers Care Technical Account Executive Name Role Phone Sierra Jerry APRN Primary Care Provid er Allergies Active Allergy Reactions Criticality Noted Date Comments Diphenhydramine Other (See Comments) Low 07/17/2018 Hypertension; only intolerant to IV form Cephalexin Itching 04/07/2023 Qnqacqyrjbm-Wyapmnppb-Rqy ant Unknown - Low Severity 04/07/2023 Insulin [...] taking differently: 8 mg daily every other rsh15qf Mon and Mon, Reported on 06/18/2020 glucose [...] (uACR) 02/24/2021 02/25/2020 DXA SCAN 10/22/2021 10/23/2019 INFLUENZA VACCINE 11/08/2024 02/09/2023, , 12/31/2020, Additional history exists COVID-19 Vaccine (2023-2 5 season) 2024 COLONOSCOPY 07/09/2025 07/10/2015 COLOGUARD 08/17/2025 08/17/2022, 06/10/2019 COLORECTAL CANCER SCREENING 08/17/2025 TDAP/TD VACCINES (2 - Td or Tdap) 04/19/2029 020 HEPATITIS C SCREENING Completed 08/20/2018 Pneumococcal Vaccine 50+ Completed 021, 12/26/2019, 12/25/2019 Procedures Procedure Name Priority Date/Time Associated Diagnosis Comments POCT GLYCOSYLATED HEMOGLOBIN (HGB A1C) Routine 08/28/2018 8:28 AM EDT Type 2 diabetes mellitus treated with insulin Routine general medical examination at [facility] facility Screening for diabetes mellitus (DM) HEPATITIS C ANTIBODY Routine 08/20/2018 12:08 PM EDT from Last 3 Months or Most Recently Relevant to Health Maintenance Results * POC Glycosylated Hemoglobin (Hb A1C) (08/28/2018 8:28 AM EDT) Hemoglobin A1C 5.2 % [facility] Blood 08/28/2018 8:28 AM EDT Dayo Estes DO POINT OF CARE TEST ORDERABLES Final Result [facility]
[address] [place] [address], [place] [phone] * Hepatitis C Antibody (08/20/2018 12:08 PM EDT) Hep C Virus Ab <0.1 0.0 - 0.9 s/co ratio [facility] Comment: Negative: < 0.8 Indeterminate: 0.8 - 0.9 Positive: > 0.9 The CDC recommends that a positive HCV antibody result be followed up with a HCV Nucleic Acid Amplification test (300670). 08/20/2018 12:0 8 PM EDT 08/20/2018 Narrative [facility] ([facility]BULATORY) - 08/22/2018 5:35 AM EDT Performed at: [address] [place] [address] [id number] Lumber Tallier: Keaton Viramontes PhD, Phone: [phone] Patient Fasting: Y Dayo Estes DO LAB BLOOD ORDERABLES Final Re sult Performing Organization Address City/[facility] Co de Phone Number [facility] [address] [place] [address], [place] [phone] [facility] [address] [place] [address], [place] [phone] from Last 3 Months or Most Recently Relevant to Health Maintenance Insurance [id number] MEDICARE REPLACE [facility] Medicare Advantage GROUP PPO Care Teams Technical Account Executive Relationship Specialty Start Date End Date Sierra Jerry APRN [address] [place] [address] PCP - General Family Medicine 04/07/23
--- OUTSIDE RECORDS SUMMARY | 2025-01-01 09:28 | XMS_ITS | Clinical Summary ---
Author Organization [employer] ([place], [place], [place], [place]) Address [address] [place] [address] Care Team Providers Care Workers Compensation Claims Specialist Name Role Phone Unavailable Primary Care [...] Treatment Not on file Insurance MATTHEW FITZGERALD [id number] [facility] MEDICARE ADVANTAGE
--- OUTSIDE RECORDS SUMMARY | 2025-01-01 09:28 | XMS_ITS | Patient Health Record ---
[facility] Organization [facility] Address [address] [place] [id number] Care Team Providers Care Sales Agent Casualty Insurance Name Role Phone Laureano Hernandez Primary Care Provider Allergies Allergen (clinical drug [...] review and pick correct strength-formulati on from orangutrans options. If intended option is not shown, [...] tab(s) orally 3 times a day Active Wyqcpkzcim-EYTB-Cmfa eine 50-325-40 MG 1 or 2 tab(s) [...] review and pick correct strength-formulati on from orangutrans options. If intended option is not shown, discontinue and re-order from Quick Search* Active Immunizations Vaccine Route Administration Date Status Comme nts xFluzone (6mos and older)-trivalent IM Intramuscular 01/25/2012 Administered Problems Problem Type SNOMED Code ICD Code Onset Dates Problem Status W/U Status Risk Notes Problem Type II diabetes mellitus without complication (027955877) DM II [Diabetes mellitus type II] (250.00) Active confirmed Plan Of Treatment No Information Insurance Providers Payer Name Payer Address Payer Phone Subscriber Number Group Number Insured Name Patient Relationship to Insured Coverage Start Date Coverage End Date [employer] [place] [address] [place] [address] [id number] Dior Hanley Self - patient is the insured Medical (General) History Medical History History ICD Code type 2 diabetes fibromyalgia DVT (multiple) onset in 1975 Memory Loss, seen by Dr. Clark in [facility]. Patient with h/o abnormal EEG asthma Surgical History Surgery Date(Month/Year) Exploratory Surgery 1982 Galbladder Removal 1984 Knee Surgery Left 1992 Hospitalization History Reason Date(Month/Year) [place] [facility] Hospitalized Numerous times for Blood Cl ots
== END 2025-01-01 23:59 | disposition home or self-care (01) ==
LOC: RAD 09:18
PROVIDERS: PCP Nurse Practitioner Family; Visit Provider Nurse Practitioner Family
DX: Z12.31 Encounter for screening mammogram for malignant neoplasm of breast (principal); M85.88 Other specified disorders of bone density and structure, other site
CPT/HCPCS: 77063; 77067; 77080

== ENCOUNTER 2025-01-27 08:42 | Outpatient (CLI) | payer MEDICARE, SELFPAY ==
--- OUTSIDE RECORDS SUMMARY | 2023-04-07 14:52 | XMS_ITS | Encounter Summary ---
[facility] Address [address] [place] [address] Care Team Providers Care Irrigator Overhead Name Role Phone Sierra Jerry APRN Primary Care Provid er Encounter Details Date Type Department Care Team (Late st Contact Info) Description 04/07/2023 1:52 PM EST Hospital Encounter [facility] PULMONARY & CRITICAL CARE MEDICINE [facility] [place] [address] Social History Tobacco Use Types [...] on filedocumented in this encounter Care Teams Irrigator Overhead Relationship Specialty Start Date End Date Sierra Jerry APRN [address] [place] [phone] PCP - General Family Medicine 04/07/23 documented as of this encounter
--- OUTSIDE RECORDS SUMMARY | 2024-07-13 17:30 | XMS_ITS ---
Author Organization [facility] Address [address] [facility] [address] [place] [address] Care Team Providers Care Chief Service Observer Name Role Phone Sierra Jerry Primary Care Provider [phone] Migration, Provider Unavailable Unavailable Allergies Allergen (clinical drug ingredient) Drug/Non Drug Allergy documented on EMR Reaction Allergy Type Onset Date Status IV BENADRYL (uncoded) elevated b/p Allergy Active KEFLEX (uncoded) itching Allergy Act chelsea fluticasone / umeclidinium / vilanterol Trelegy Ellipta voiding issues Drug Allergy Active insulin glargine Toujeo SoloStar Unknown Drug Allergy Active Substance with 3-siwkaqz-8-methylgl utaryl-coenzyme A reductase inhibitor mechanism of action (substance) Statins itching Drug Allergy Active Penicillin rash Drug Allergy Active valacyclovir valACYclovir cough/wheeze Drug Allergy Active REASON FOR VISIT [facility] To [facility] Conversion Encounter Medications Medication SIG (Take, Route, Frequency, Duration) Notes Start Date End Date Status Warfarin Sodium 2 MG 4 tablets orally once a day; Duration: 90 days Active Meclizine HCl 25 MG 1/2 or whole tablet orally at night as needed for vertigo; Duration: 90 days Active Lantus SoloStar 100 UNIT/ML 76 units subcutaneously once daily Active HumaLOG KwikPen 100 UNIT/ML inject up to 15 units with meals, not to exceed 45 units per day subcutaneously 3 times a day Active Breztri Aerosphere 160 MCG-4.8 MCG-9 MCG/INH 2 PUFF(S) INHALED 2 TIMES A DAY; Duration: 84 DAYS *Please review and pick correct strength-formulati on from [employer] options. If intended option is not shown, discontinue and re-order from Quick Search* Active ALBUTEROL (EQV-PROAIR HFA) 90 MCG/INH USE 2 INHALATIONS EVERY 6 HOURS prn *Please review for potential replacement for e-prescription and drug interaction check* Active Azelastine HCl 137 MCG/SPRAY 1 spray(s) in each nostril 2 times a day; Duration: 30 days 01/31/2024 Active Losartan Potassium 100 MG 1 tab(s) orally once a day Active PEN NDL KELVIN 32G X 4MM PEN NEEDLES SUBCUTANEOUSLY THREE TIMES A DAY NEEDED; Duration: 90 DAYS *Please review for potential replacement for e-prescription and drug interaction check* Active ONE TOUCH ULTRA LANCETS NA DX: E11.22 TEST TID & NEEDED; Duration: 90 DAYS *Please review for potential replacement for e-prescription and drug interaction check* 01/07/2013 Active Dexcom G7 Sensor 1 SENSOR DIRECTED FOR CONTINUOUS GLUCOSE MONITORING; Duration: 90 DAYS *Please review and pick correct strength-formulati on from [employer]I options. If intended option is not shown, discontinue and re-order from Quick Search* Active ONE TOUCH ULTRA TEST STRIPS BLUE DX: E11.22 TEST TID & NEEDED; Duration: 90 DAYS *Please review for potential replacement for e-prescription and drug interaction check* 07/06/2013 Active Dexcom G7 Local Bulk Driver DIRECTED CONTINUOUS GLUCOSE MONITORING; Duration: 30 DAY(S) *Please review and pick correct strength-formulati on from [employer]I options. If intended option is not shown, discontinue and re-order from Quick Search* 07/08/2022 Active Fluticasone Propionate 50 MCG/ACT 2 spray(s) in each nostril twice daily; Duration: 10 days 06/25/2022 Active BD KELVIN 2ND GEN PEN NEEDLE 4MM X 32G FOR USE WITH INSULIN SQ BID; Duration: 90 DAYS *Please review for potential replacement for e-prescription and drug interaction check* Active Ipratropium-Albuter ol 0.5-2.5 (3) MG/3ML 3 mL by nebulizer TID and q6 hours prn 03/22/2018 Active PROBIOTIC FORMULA (BACILLUS COAGULANS) - 1 CAP(S) ORALLY ONCE A DAY *Please review for potential replacement for e-prescription and drug interaction check* Active Mounjaro 2.5 MG/0.5 ML 2.5 MG SUBCUTANEOUSLY ONCE A WEEK; Duration: 84 DAYS *Please review and pick correct strength-formulati on from RE[employer]I options. If intended option is not shown, discontinue and re-order from Quick Search* 05/02/2024 Active ONE TOUCH MINI GLUCOMETER DIRECTED *Please review for potential replacement for e-prescription and drug interaction check* 03/05/2014 Active Valium 5 MG 1 tab(s) orally once a day as needed for anxiety or insomnia; Duration: 90 days 08/14/2021 Active Xyzal Allergy 24HR 5 MG 1 po qd Active Reclast 5 MG/100ML as directed intravenously once Active Metoprolol Succinate ER 50 MG 1 tab(s) orally once a day; Duration: 90 days Active Citalopram Hydrobromide 40 MG 1 tab(s) orally once a day; Duration: 90 days Active Lansoprazole 30 MG 1 cap(s) orally once a day; Duration: 90 days Active metFORMIN HCl 1000 MG 1 tab(s) orally 2 times a day; Duration: 90 days Active Encounters Encounter Location Date Provider Diagnosis [facility] [place] [address] [facility] [address] [place] [address] 07/13/2024 Provider Migration Type 2 diabetes mellitus [...] tablet orally at night as needed for vertigo; Duration: 90 days Lantus SoloStar 100 UNIT/ML 76 units subcutaneously once daily HumaLOG KwikPen 100 UNIT/ML inject up to 15 units with meals, not to exceed 45 units per day subcutaneously 3 times a day Breztri Aerosphere 160 MCG-4.8 MCG-9 MCG/INH 2 PUFF(S) INHALED 2 TIMES A DAY; Duration: 84 DAYS *Please review and pick correct strength-formulation from REQQI options. If intended option is not shown, discontinue and re-order from Quick Search* Dexcom G7 Sensor 1 SENSOR DIRECTED FOR CONTINUOUS GLUCOSE MONITORING; Duration: 90 DAYS *Please review and pick correct [facility]. If intended option is not shown, discontinue and re-order from Quick Search* Mounjaro 2.5 MG/0.5 ML 2.5 MG SUBCUTANEOUSLY ONCE A WEEK; Duration: 84 DAYS 05/02/2024 *Please review and pick correct strength-formulation from [facility]. If intended option is not shown, discontinue and re-order from Quick Search* Metoprolol Succinate ER 50 MG 1 tab(s) orally once a day; Duration: 90 days Citalopram Hydrobromide 40 MG 1 tab(s) orally once a day; Duration: 90 days Lansoprazole 30 MG 1 cap(s) orally once a day; Duration: 90 days metFORMIN HCl 1000 MG 1 tab(s) orally 2 times a day; Duration: 90 days Progress Notes * Elenita CONTRERASOB: 5 (69 yo F)Acc No.[id number]:07/13/2024 Patient: Dior CUNNINGHAM Provider: David Pereira :1955 A ge:68 Y S ex:Female Date:07/13/2024 Address:[place] [address], [id number] Pcp:Sierra Jerry Subjective: * Chief Complaints: * [facility] . [facility] * Medical History: * Medications: [...] nostril twice daily , Taking Dexcom G7 Local Bulk Driver DIRECTED CONTINUOUS GLUCOSE MONITORING , Notes to Pharmacist: *Please review and pick correct strength-formulation from lemonade.ukspan options. If intended option is not shown, [...] *Please review and pick correct strength-formulation from lemonade.ukspan options. If intended option is not shown, [...] Electronic signature of Prov ider Migration on 01/27/2025 at 08:55 AM EDT Sign off status: Pending * Provider: David middleton Migration Date: 0 07/13/2024 Generated for Mirta lynne/Evaristo/Yuri on: 1 08:55 AM EDT
--- OUTSIDE RECORDS SUMMARY | 2024-12-05 06:15 | XMS_ITS ---
Author Organization [facility] [place] Address [address] [place] [address] Care Team Providers Care Utility Specialist Name Role Phone Sierra Jerry Primary Care Provider Allergies Allergen (clinical drug ingredient) Drug/Non Drug Allergy documented on EMR Reaction Allergy Type Onset Date Status IV BENADRYL (uncoded) elevated b/p Allergy Active KEFLEX (uncoded) itching Allergy Act chelsea fluticasone / umeclidinium / vilanterol Trelegy Ellipta voiding issues Drug Allergy Active insulin glargine Toujeo SoloStar Unknown Drug Allergy Active Substance with 4-eifginr-1-methylgl utaryl-coenzyme A reductase inhibitor mechanism of action (substance) Statins itching Drug Allergy Active Penicillin rash Drug Allergy Active valacyclovir valACYclovir cough/wheeze Drug Allergy Active Results Component Value Reference Range Notes DEXA Hip and Spine - Screeni ng Reviewed date:01/07/2025 02:01:11 PM Interpretation: Performing Lab: Notes/Report: Mammogram: Screening Reviewed date:01/13/2025 10:22:28 AM Interpretation: Performing Lab: Notes/Report: Reason For Referral Reason Mamm and DEXA after 12/19/24 Diagnosis 1 Medicare annual well ness visit, subsequent (Z00.00) Referral Organization [facility] Referring Provider First Name Sierra Referring Provider Last Name Claritza Referring Provider Speciality Family Pra ctice Referred Organization [facility] Referred Address [address], [place],[address], Referred Provider Specialty Diagnostic R adiology General Notes Isabela Figueroa 2024 10:56:02 AM >sent to [facility] to schedule appt Referral Priority Routine REASON FOR VISIT Annual Wellness, 4 week f/u, neck and back is sore and stiff, Dr. Gray-has her on a compound cream for her back Medications Medication SIG (Take, Route, Frequency, Duration) Notes Start Date End Date Status Lantus SoloStar 100 UNIT/ML INJECT 76 UNITS UNDER THE SKIN ONCE DAILY Active Mounjaro 2.5 MG/0.5ML INJECT 1 PEN SUBCU TANEOUSLY ONCE A WEEK; Duration: 84 Active Meclizine HCl 25 MG 1/2 or whole tablet orally at night as needed for vertigo; Duration: 90 days Activ e Lansoprazole 30 MG 1 cap(s) orally once a day; Duration: 90 days Active Baclofen 5 MG 1 tablet with food o r milk Orally Once a day at bedtime; Duration: 30 days 09/24/2024 Activ e Breztri Aerosphere 160 MCG-4.8 MCG-9 MCG/INH 2 PUFF(S) INHALED 2 TIMES A DAY; Duration: 84 DAYS Active HumaLOG KwikPen 100 UNIT/ML inject up to 15 units with meals, not to exceed 45 units per day subcutaneously 3 times a day Active Dexcom G7 Sensor 1 SENSOR DIRECTED FOR CONTINUOUS GLUCOSE MONITORING; Duration: 90 DAYS Active PEN NDL KELVIN 32G X 4MM PEN NEEDLES SUBCU TANEOUSLY THREE TIMES A DAY; Duration: 90 days Active Warfarin Sodium 2 MG 4 tablets orally on ce a day; Duration: 90 days Active Dexcom G7 Inventory Taker DIRECTED CONTINUO US GLUCOSE MONITORING; Duration: 30 DAY(S) 07/08/2022 Active ONE TOUCH ULTRA TEST STRIPS BLUE DX: E11.22 TEST TID & NEEDED; Duration: 90 DAYS 07/06/2013 Active ONE TOUCH ULTRA LANCETS NA DX: E11.22 TEST TID & NEEDED; Duration: 90 DAYS 01/07/2013 Active Azelastine HCl 137 MCG/SPRAY 1 spray(s) in each nostril 2 times a day; Duration: 30 days 01/31/2024 Active Fluticasone Propionate 50 MCG/ACT 2 spray(s) in each nostril twice daily; Duration: 10 days 06/25/2022 Active ONE TOUCH MINI GLUCOMETER DIRECTED 03/05/2014 Active PROBIOTIC FORMULA (BACILLUS COAGULANS) - 1 CAP(S) ORALLY ONCE A DAY Active Ipratropium-Albuterol 0.5-2.5 (3) MG/3ML 3 mL by nebulizer TID and q6 hours prn 03/22/2018 Active Valium 5 MG 1 tab(s) orally once a day as needed for anxiety or insomnia; Duration: 90 days 08/14/2021 Acti ve BD KELVIN 2ND GEN PEN NEEDLE 4MM X 32G FOR USE WITH INSULIN SQ BID; Duration: 90 DAYS Active Reclast 5 MG/100ML as directed intraven ously once Active Xyzal Allergy 24HR 5 MG 1 po qd Active Albuterol Sulfate HFA 108 (90 Base) MCG/ACT 1 puff as needed Inhalation every 6 hours for shortness of breath; Duration: 90 days 12/07/2024 Active Metoprolol Succinate ER 50 MG 1 tab(s) orally once a day; Duration: 90 days Active Citalopram Hydrobromide 40 MG 1 tab(s) orally once a day; Duration: 90 days Active Immunizations Vaccine Route Administration Date Status Comme nts SHINGRIX IM Intramuscular 12/05/2024 Administered Problems Problem Type SNOMED Code ICD Code Onset Dates Problem Status W/U Status Risk Notes Problem Body mass index 30.00 to 34.99 ([id number] 107) BMI 34.0-34.9,a dult (Z68.34) Active confirmed Vital Signs Temperature 97.6 degrees Fahrenheit 12/06/19 25 Blood pressure systolic 124 mm Hg 12/06/19 25 Blood pressure diastolic 60 mm Hg 025 Heart Rate 98 /min 12/05/2024 Height 64 in 12/05/2024 Weight 201.6 lbs 12/05/2024 BMI 34.6 kg/m2 12/05/2024 Encounters Encounter Location Date Provider Diagnosis [facility] [address] [place] [address] 12/05/2024 Sierra Jerry Encounter for immunization Z23 ; Chronic kidney disease, stage 2 (mild) N18.2 [...] deficiency E55.9 ; Depression, reactive F32.9 ; Visit for screening mammogram Z12.31 ; Postmenopausal osteoporosis M81.0 and BMI 34.0-34.9,adult Z68.34 Assessments Encounter Date Diagnosis (ICD Code) Assessment Notes Treatment Notes Treatment Clinical Notes Section Notes 12/05/2024 Encounter for immunization (ICD-10 - Z23) 12/05/2024 Chronic kidney disease, stage 2 (mild) (ICD-10 - N18.2) 12/05/2024 Medicare annual wellness visit, subsequent (ICD-10 - Z00.00) update screening exams as noted, labs to be done again in 2-3 months continue FU with pain management and coumadin clinic glucose control improving, CGM has been very helpful since she lives alone and has had some difficulty with hypoglycemia in the past. We will continue low dose Mounjaro. CC diet and exercise as much as tolerated recommended 12/05/2024 Type 2 diabetes mellitus with diabetic chronic kidney disease (ICD-10 - E11.22) 12/05/2024 Mixed dyslipidemia (ICD-10 - E78.2) 12/05/2024 Venous (peripheral) insufficiency (ICD-10 - I87.2) 12/05/2024 Asthma, moderate persistent (ICD-10 - J45.40) 12/05/2024 Recurrent deep vein thrombosis (DVT) of both lower extremities (ICD-10 - I82.403) 12/05/2024 Essential hypertension (ICD-10 - I10) 12/05/2024 B12 deficiency (ICD-10 - E53.8) 12/05/2024 Vitamin D deficiency (ICD-10 - E55.9) 12/05/2024 Depression, reactive (ICD-10 - F32.9) 12/05/2024 Visit for screening mammogram (ICD-10 - Z12.31) 12/05/2024 Postmenopausal osteoporosis (ICD-10 - M81.0) 12/05/2024 BMI 34.0-34.9,adult (ICD-10 - Z68.34) Improving with addition of GLP1I, continue to follow, slow steady weight loss is goal Plan Of Treatment Medication Medication Name Sig Start Date Stop Date Notes ALBUTEROL (EQV-PROAIR HFA) 9 0 MCG/INH 2 puffs inhaled every 6 hours as needed for shortness of breath; Duration: 90 days prn Albuterol Sulfate HFA 108 (9 0 Base) MCG/ACT 1 puff as needed Inhalation every 6 hours for shortness of breath; Duration: 90 days 12/07/2024 Treatment Notes Assessment Notes Medicare annual wellness visit, subseque nt update screening exams as noted, labs to be done again in 2-3 months continue FU with pain management and coumadin clinic glucose control improving, CGM has been very helpful since she lives alone and has had some difficulty with hypoglycemia in the past. We will continue low dose Mounjaro. CC diet and exercise as much as tolerated recommended Referrals Referral Date Details 12/07/2024 12/07/2024, Mamm and DEXA after 12/19/24, [address] [facility], [place], [address], Next Appt Details Follow Up: 2-3 months, Reaso n: labs Progress Notes * Elenita HANLEYOB: 5 (68 yo F)Acc No.[id number]:12/05/2024 Progress Notes Patient: Dior CUNNINGHAM Provider: PARVEZ Brock :1955 A ge:68 Y S ex:Female Date:12/05/2024 Address:[address], [place], [id number] Subjective: * Chief Complaints: * 1 . Annual Wellness, 4 week f/u. 2. Neck and back is sore and stiff. 3. Dr. Gray- has her on a compound cream for her back. * HPI: g en: 68 yr old female seen today for annual Medicare wellness exam chronic asthma/allergies, doing well on current regimen. SOA intermittently but much more tolerable. WRT wellness she is due for Reclast soon, Mamm and DEXA. Cologuard negative and UTD living alone since the of her and feels like she is managing very well at this point. Has a good network of friends. Denies any falls. Depression currently being treated with celexa, has also been on wellbutrin in the past but doing well on single agent at this point No functional deficits, managing all of her affairs, no physical assistive devices. + living will. Dental and eye exams are UTD. Has done well with CGM. Glucose control has been much better recently. Very rare hypoglycemic events. ARB stopped recently due to low blood pressures and hyperkalemia and does not take statins due to significant intolerance. Is back on low dose Mounjaro and tolerating, glucose stable, would like to continue current dose at least for some more time before considering increase Followed by coumadin clinic for INR monitoring. She does continue to have issues with back pain and intermittent lower extremity radicular symptoms. Manages with activity changes, rest, etc. Using exercise bike because she doesn't tolerate walking for very long. Following now with [facility] pain management. Using topical compound cream which has been somewhat helpful. * ROS: F UNCTIONAL STATUS: ADLS I ndependent for all ADL/IADL. R ESPIRATORY: Positive for h as chosen to no longer follow with pul.?Shortness of breath y es, w orse with exertion, at baseline. n o C ough. ? C ARDIOLOGY: no C hest pain. P alpitations y es, r macho.?Leg edema y es, m ore at the end of the day, stable with compression socks daily. V aricose veins y es. C ONSTITUTIONAL: no L oss of appetite. n o F ever. F atigue y es. D ERMATOLOGY: no R lorena. D ry or sensitive skin y es. ? E NDOCRINOLOGY: Diabetes yes. G ASTROENTEROLOGY: no V omiting. n o A bdominal pain. M USCULOSKELETAL: back pain y es. J oint stiffness y es. ? N EUROLOGY: no H eadache. n o T ingling numbness. ? P SYCHOLOGY: Depression y es, w ell controlled on celexa. U ROLOGY: no D ifficulty urinating. n o B lood in urine. * Medical History: t ype II diabetes, [...] active: no. Travel outside [place]: no. 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 * Medications: T aking Reclast 5 MG/100ML Solution as directed intravenously once , Taking Xyzal Allergy 24HR 5 MG Tablet 1 po qd , Taking ONE TOUCH MINI GLUCOMETER DIRECTED , Taking PROBIOTIC FORMULA (BACILLUS COAGULANS) - CAPSULE 1 CAP(S) ORALLY ONCE A DAY , Taking Ipratropium-Albuterol 0.5-2.5 (3) MG/3ML Solution 3 mL by nebulizer TID and q6 hours prn , Taking Valium 5 MG Tablet 1 tab(s) orally once a day as needed for anxiety or insomnia , Taking BD KELVIN 2ND GEN PEN NEEDLE 4MM X 32G FOR USE WITH INSULIN SQ BID , Taking Fluticasone Propionate 50 MCG/ACT Suspension 2 spray(s) in each nostril twice daily , Taking Dexcom G7 Inventory Taker DIRECTED CONTINUOUS GLUCOSE MONITORING , Taking ONE TOUCH ULTRA TEST STRIPS BLUE DX: E11.22 TEST TID & NEEDED , Taking ONE TOUCH ULTRA LANCETS NA NA DX: E11.22 TEST TID & NEEDED , Taking Azelastine HCl 137 MCG/SPRAY Solution 1 spray(s) in each nostril 2 times a day , Taking ALBUTEROL (EQV-PROAIR HFA) 90 MCG/INH AEROSOL USE 2 INHALATIONS EVERY 6 HOURS , Notes to Pharmacist: prn, Taking Breztri Aerosphere 160 MCG-4.8 MCG-9 MCG/INH AEROSOL 2 PUFF(S) INHALED 2 TIMES A DAY , Taking HumaLOG KwikPen 100 UNIT/ML Solution Pen-injector inject up to 15 units with meals, not to exceed 45 units per day subcutaneously 3 times a day , Taking Dexcom G7 Sensor 1 SENSOR DIRECTED FOR CONTINUOUS GLUCOSE MONITORING , Taking PEN NDL KELVIN 32G X 4MM PEN NEEDLES SUBCUTANEOUSLY THREE TIMES A DAY , Taking Warfarin Sodium 2 MG Tablet 4 tablets orally once a day , Taking Baclofen 5 MG Tablet 1 tablet with food or milk Orally Once a day at bedtime , Taking Lantus SoloStar 100 UNIT/ML Solution Pen-injector INJECT 76 UNITS UNDER THE SKIN ONCE DAILY , Taking Mounjaro 2.5 MG/0.5ML Solution Auto-injector INJECT 1 PEN SUBCUTANEOUSLY ONCE A WEEK , Taking Meclizine HCl 25 MG Tablet 1/2 or whole tablet orally at night as needed for vertigo , Taking Lansoprazole 30 MG Capsule Delayed Release 1 cap(s) orally once a day , Taking Citalopram Hydrobromide 40 MG Tablet 1 tab(s) orally once a day , Taking Metoprolol Succinate ER 50 MG Tablet Extended Release 24 Hour 1 tab(s) orally once a day , Medication List reviewed and reconciled with the patient * Allergies: P enicillin: rash, IV BENADRYL: elevated b/p, KEFLEX: itching, Statins: itching, valACYclovir: cough/wheeze, Trelegy Ellipta: voiding issues, Toujeo SoloStar. Objective: * Vitals: N urse: jl, Pain: 3, Temp: 97.6, RR: 18, HR: 98, BP: 124/60, Ht: 64, Wt: 201.6, BMI:34.6. * Examination: G eneral Examination: General P leasant and Cooperative, NAD on RA,. Oral cavity: Moist membranes. Chest: n ormal shape and expansion. Heart: R RR, soft systolic murmur at aortic area, Nl S1S2.? HEENT: glasses, otherwise unremarkable. Lungs: L CTAB, No wheezes, crackles or rhonchi, Good air movement,. Neurologic Exam: Alert and oriented x 3. Skin: w ithout acute rashes. Peripheral pulses: n ormal (2+) bilaterally. Extremities: n o edema, compression socks bilat, varicose veins. neck supple,, no thyromegaly,, no lymphadenopathy,. Psych N ormal Mood/Affect. Assessment: * Assessment: 1. M edicare annual wellness visit, subsequent - Z00.00 (Primary) 2 . E ncounter for immunization - Z23 3 . C hronic kidney disease, stage 2 (mild) - N18.2? 4. T ype 2 diabetes mellitus with diabetic chronic kidney disease - E11.22 5. M ixed dyslipidemia - E78.2 6 . V enous (peripheral) insufficiency - I87.2 7 . A sthma, moderate persistent - J45.40 8 .?Recurrent deep vein thrombosis (DVT) of both lower extremities - I82.403 9 . E ssential hypertension - I10 1 0. B 12 deficiency - E53.8 1 1.?Vitamin D deficiency - E55.9 1 2. D epression, reactive - F32.9 ?13. V isit for screening mammogram - Z12.31 1 4. P ostmenopausal osteoporosis - M81.0 1 5. B [place] 34.0-34.9,adult - Z68.34 Plan: * Treatment: 2. A sthma, moderate persistent Stop ALBUTEROL (EQV-PROAIR HFA) AEROSOL, 90 MCG/INH, 2 puffs, inhaled, every 6 hours as needed for shortness of breath, 90 days, 3, Notes to Pharmacist: prn; S tart Albuterol Sulfate HFA Aerosol Solution, 108 (90 Base) MCG/ACT, 1 puff as needed, Inhalation, every 6 hours for shortness of breath, 90 days, 3, Refills 3. 3. V isit for screening mammogram I maging: Mammogram: Screening * 4.?Postmenopausal osteoporosis?Imaging: DEXA Hip and Spine - Screening* Isabela Figueroa 12/10/2024 10: 55:35 AM EDT > after 3-08-87VtsblHarpreet johnston 01/03/2025 10:59:10 AM EDT >This DI was reviewed by Carmel Kelly on 01/07/2025 at 14:01 PM EDT * 5.?BMI 34.0-34.9,adult? Clinical Notes: Improving with addition of GLP1I, continue to follow, slow steady weight loss is goal?? * Immunizations: SHINGRIX : 0.5 mL (Dose No:1) (Route: Intramuscular) given by ARIELLA Martinez on Left Deltoid (Encounter for immunization) * Procedure Codes: 9 0750 SHINGRIX, [address]12 ADMINISTRATION IMMUNIZATION ONE VACCINE, G0439 ANNUAL WELLNESS VST; PPS SUBSQT VST, M1372 Mst rec gsa >=7 and<8, G8399 PT W/DXA DOCUMENT OR ORDER, 1123F ADVANCED DIRECTIVE - HAS A LIVING WILL, G9899 Screening diagnostic,film,digital results documented and reviewed, 3017F COLORECTAL CA SCREEN DOC REV, G8417 BMI >=30 CALCUATE W/FOLLOWUP, G8510 NEGATIVE SCREENING F/U NOT REQUIRED, G9903 Pt scrn tbco id as non user, G8752 Most recent systolic blood pressure < 140mmhg, G8754 Most recent diastolic blood pressure < 90mmhg, G9744 PATIENT NOT ELIG D/T ACTIVE DX HTN * Preventive Medicine: Counseling: L iving will . C are goal follow up plan B [place] management provided Y es. ALANNAH Screening: F alls: Future screening for fall risks H ave you had two or more falls in the past year? N o, H ave you had any falls with injury in the past year? N o. Depression Screening: I nterventions o n celexa. P HQ 2 F eeling down depressed or hopeless Y es improved. Immunizations: i nfluenza H ave you had a flu shot since the most recent December 09 ? Y es. P neumonia vaccine: Status for Older Adults A re you up-to-date on your pneumonia vaccine? yes or no B oth Prevnar and Pneumovax. Z ostavax Y es. T dap y es. S hingrix D ue and initiated today. C OVID D eclines. R SV vaccination C ompleted. Screening / Special Tests: M ammogram n eeds to be scheduled. P ap Smear?s/p hysterectomy for noncancerous reasons. C olonoscopy C ologuard utd 2022. B one mineral Density P rior - osteoporosis. L ok Cancer Screening N ot indicated - nonsmoker. Hepatitis C Screen N egative. * Follow Up: 2 -3 months (Reason: labs) * * Sign off status: Completed true * Provider: PARVEZ Brock Date: 0 12/05/2024 Generated for Mirta lynne/Evaristo/eTransmitting on: 08:58 AM EDT History and Physical Notes * Examination Category Sub-Category Detail Notes Category Not es General Examination HEENT: glasses, otherwise un remarkable Heart: RRR, soft systolic m urmur at aortic area, Nl S1S2 Lungs: LCTAB, No wheezes, c rackles or rhonchi, Good air movement, Extremities: no edema, compressio n socks bilat, varicose veins Skin: without acute rashes Neurologic Exam: Alert and oriented x 3 Oral cavity: Moist membranes Peripheral pulses: normal (2+) bilatera lly Chest: normal shape and exp ansion neck supple,, no thyromeg triston,, no lymphadenopathy, General Pleasant and Coopera tive, NAD on RA, Psych Normal Mood/Affect Consultation Request Notes Referral Date Referring Provider Referred Provider Not zoya 12/07/2024 Sierra Jerry , Mamm and DEX A after 12/19/24
--- OUTSIDE RECORDS SUMMARY | 2025-01-15 13:00 | XMS_ITS | Encounter Summary ---
Author Organization [facility] Address [address] [place] [address] Care Team Providers Care Slurry Man Name Role Phone Unavailable Primary Care Provider Unavailabl e Reason for Visit * Consultation (Routine) - Closed Specialty Diagnoses / Procedures Referred By Sagar t Referred To Contact Dentist / Pain Medicine Diagnoses Obstructive sleep apnea (adult) (pediatric) Kailyn Hendrickson MD [address] [place] [address] Phone: tel: fax: Zenaida Whitaker, DDS [address] [address] Phone: tel: fax: Referral ID Status Reason Start Date Expiration Date Visits Re quested Visits Authorized [id number] Closed 12/26/2024 06/27/2026 1 1 Encounter Details Date Type Department Care Team (Late st Contact Info) Description 01/15/2025 1:00 PM EDT [facility] Room E214 [address] [place] [address] Zenaida Whitaker, DDS [address] [address] Viridiana Maki Obstructive sleep apnea [...] No other bony or dental pathology noted. [place] #15. ASSESSMENT: moderate obstructive sleep apnea (intolerant [...] DSAD. If pt elects to pay portion [id number] for other appliance designs, we can discuss [...] appliance. Letter sent to referring physician (via [employer]). [1] No past medical history on file. [...] saw and evaluated the patient with the probation and parole officer, and performed craig portions of the history [...] Care Team (Late st Contact Info) Description 02/20/2025 12:05 PM EST Office Visit [facility] Pain Clinic Orofacial Pain [facility] Room E2 [address] [place] [phone] Zenaida Whitaker, [facility] [address] [phone] 03/25/2025 11:15 AM EST Office Visit [facility] Pain Clinic O[facility] Pain Clinic [facility] Room E2 [address] [place] [phone] Zenaida Whitaker [facility] [phone] Scheduled Orders Name Type Priority Associated Diagnoses Orde r Schedule WI ORAL DEVICE/APPLIANCE CUSFAB- IN PROCESS Dental Routine 1 Occurrences starting 01/15/2025 documented as of this encounter Visit Diagnoses Diagnosis Obstructive sleep apnea- Primary Obstructive sleep apnea (adult) (pediatric) documented in this encounter Additional Health Concerns Assessment Noted Time A Body Mass Index follow-up plan has been documented for the patient 01/16/2025 9:42 AM EDT documented as of this encounter
--- OUTSIDE RECORDS SUMMARY | 2025-01-27 08:56 | XMS_ITS | Encounter Summary ---
Author Organization [employer] ([place], [place], [place], [place]) Address [address] [place] [address] Care Team Providers Care Bank Manager Name Role Phone Unavailable Primary Care Provider Unavailabl e Encounter Details Date Type Department Care Team (Late st Contact Info) Description 10/13/2020 Transcribed Document [facility] Family Medicine [facility] [place] [address] ProviderDaniela MD [address] [place] [address] [phone] Social History Tobacco Use Types Packs/Day Years [...] On: 10/12/2020 20:49 EDT by Suzy Montoya Bottom Loader Assessment Triage Date/Time : 10/12/2020 20:49 EDT Suzy Montoya Rn - 10/12/2020 20:49 EDT DCP GENERIC CODE Tracking Acuity : 3 - Urgent [facility] Tracking Group : [place] Suzy Montoya Rn - 10/12/2020 20:49 EDT [...] Source : Stated Height Entry Format : [place] Height, Inches : 65 Inch(Converted to: 5 ft 5 Inch, 165.10 cm) Clinical Height : 165.1 cm Weight Source : Stated Type of Weight Measurement Est : [place] Weight, est lb : 220 lb Estimated Clinical Dosing Weight : 100 kg [place] Body Weight : 57 kg Body Surface [...]
--- OUTSIDE RECORDS SUMMARY | 2025-01-27 08:56 | XMS_ITS | Clinical Summary ---
Author Organization [facility] Address [address] [place] [address] Care Team Providers Care Intake Coordinator Name Role Phone Unavailable Primary Care Provider Unavailabl e Allergies Active Allergy Reactions Criticality Noted Date Comments Cephalexin Itching Medium 01/15/2025 Diphenhydramine Palpitations Low 01/15/2025 Penicillins Itching,Rash Medium 12/31/2017 Medications baclofen (Lioresal) 10 MG tablet 5 Active Blood Glucose Monitoring Suppl (Accu-Chek Guide) w/Device kit USE TO TEST BLOOD SUGAR TWICE DAILY 5 Active cetirizine (ZyrTEC ALLERGY) 10 MG tablet Take 1 tablet by mouth. Active cholecalcifero l (Vitamin D3) 25 MCG (1000 UT) tablet Take 1 tablet by mouth. Active citalopram (CeleXA) 40 MG tablet 1 (one) time each day at the same time. Active Continuous Glucose Sensor (Dexcom G7 Sensor) [facility] USE 1 SENSOR DIRECTED FOR CONTINUOUS GLUCOSE MONITORING 5 Active cyanocobalamin (B-12) 1000 MCG tablet 1 (one) time each day at the same time. Active Accu-Chek Guide Test test strip USE TO CHECH BLOOD SUGAR TWICE DAILY Active metFORMIN (Glucophage) 1000 MG tablet Take 1 tablet by mouth 2 times a day. Active metoprolol succinate XL (Toprol-XL) 50 MG 24 hr tablet 1 (one) time each day at the same time. 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 07/23/2018 Encounters Date Type Department Care Team Description 01/15/2025 1:00 PM EDT Office Visit [facility] Orofacial Pain Clinic Orofacial Pain Clinic [facility] Room E2 [address] [place] [address] Zenaida Whitaker DDS Kimble, Catherine D Obstructive sleep apnea (Primary Dx) 01/15/2025 Travel 01/09/2025 Telephone [facility] Orofacial Pain Clinic Orofacial Pain Clinic [facility] Room E214 [address] [place] [address] Bisi Aguilar 12/26/2024 Community Orders Community Practice [address] [place] [phone] Kailyn Hendrickson MD Obstructive sleep apnea (adult) [...] Mass Index 32.13 01/15/2025 1:41 PM EDT Plan of Treatment Upcoming Encounters Date Type Department Care Team (Late st Contact Info) Description 02/20/2025 12:05 PM EST Office Visit [facility] Orofacial Pain Clinic Orofacial Pain Clinic [facility] Room E214 [address] [place] [phone] Zenaida Whitaker, [facility] [address] [address] 03/25/2025 11:15 AM EST Office Visit [facility]facial Pain Clinic O[facility]facial Pain Clinic [facility] Room E2 [address] [place] [address] Zenaida Whitaker, [facility] [address] [address] Health Maintenance Due Date Last Done Comments Dental Oral Exam 1955 Dental Prophylaxis 1955 Dental X-Ray: Bitewings 1955 Dental X-Ray: Full Mouth 1955 [facility]-Bone Density Scan 1954 [facility]-Depression Screening 1954 [facility]-Medicare Annual Wellness (AWV) 1954 [facility]-/Child/Adol SDOH Screenings 1954 [id number] Vaccine (#1) 12/20/1959 Diabetes: Dental Exam 1964 [facility]- SDOH Screenings 1972 [facility]-Adult SDOH Screenings 1972 CT Colonography 12/20/1999 Colonoscopy 12/20/1999 FIT 12/20/1999 FOBT 12/20/1999 Sigmoidoscopy 12/20/1999 [facility]-Breast Cancer Screening 2004 [facility]-Diabetes: Hemoglobin A1C 02/25/2019 08/28/2018 [facility]-Influenza Vaccine (#1) 12/09/202403/21, 02/09/2023, 01/06/2022, Additional history exists [facility]-Zoster Vaccines (2 of 2) 01/30/2025 12/05/2024, 09/23/2009 [facility]-DNA 08/17/2025 08/17/2022, 06/10/2019 [facility]-Colorectal Cancer Screening 08/17/2025 [facility]-DTaP,Tdap,and Td Vaccines (2 - Td or Tdap) 04/19/2029 04/19/2019 [facility]-Hepatitis A Vaccines Aged Out 03/19/2018 No longer eligible based on patient's age to complete this topic [facility]-Hepatitis C Screening Completed 08/20/2018 [facility]-Pneumococcal Vaccine: 50+ Years Completed 12/31/2020, 12/26/2019 [facility]-RSV Vaccine: 60+ Years or Completed 11/30/2023 [facility]-Obesity Intervention Completed 01/15/2025 HPV Vaccines Aged Out No longer eligi ble based on patient's age to complete this topic [facility]-HIB Vaccines Aged Out No longer e ligible based on patient's age to complete this topic [facility]-IPV Vaccines Aged Out No longer e ligible based on patient's age to complete this topic [facility]-Rotavirus Vaccines Aged Out No lo nger eligible based on patient's age to complete this topic Insurance [facility] MEDICARE
--- OUTSIDE RECORDS SUMMARY | 2025-01-27 08:56 | XMS_ITS | Encounter Summary ---
Author Organization [facility] Address [address] [place] [address] Care Team Providers Care Inspector Poising Name Role Phone Unavailable Primary Care Provider Unavailabl e Encounter Details Date Type Department Care Team (Latest Contact Info) Description 01/15/2025 Travel Social History Tobacco Use Types Packs/Day Years Used Date Smoking Tobacco: Never Assessed Comments Unknown Sex and Gender Information Value Date Recorded Sex Assigned at Not on file Legal Sex Female 8:34 PM EDT Gender Identity Not on file Sexual Orientation Not on file documented as of this encounter Plan of Treatment Upcoming Encounters Date Type Department Care Team (Late st Contact Info) Description 02/20/2025 12:05 PM EST Office Visit [facility] Orofacial Pain Clinic [facility] Room E214 [address] [place] [address] Zenaida Whitaker [facility] [address] [address] 03/25/2025 11:15 AM EST Office Visit [facility]rofacial Pain Clinic Orofacial Pain Clinic [facility] Room E2 [address] [place] [address] Zenaida Whitaker [facility] [address] [address] documented as of this encounter Visit Diagnoses Not on filedocumented in this encounter Additional Health Concerns Assessment Noted Time A Body Mass Index follow-up plan has been documented for the patient 01/16/2025 9:42 AM EDT documented as of this encounter
--- OUTSIDE RECORDS SUMMARY | 2025-01-27 08:56 | XMS_ITS | Encounter Summary ---
Author Organization [employer] ([place], [place], [place], [place]) Address [address] [place] [address] Care Team Providers Care Emergency Department Director Name Role Phone Unavailable Primary Care Provider Unavailabl e Encounter Details Date Type Department Care Team (Late st Contact Info) Description 10/13/2020 Transcribed Document [facility] Family Medicine [facility] [place] [address] ProviderDaniela MD [address] [place] [address] [phone] Social History Tobacco Use Types Packs/Day Years Used Date Smoking Tobacco: Never Assessed Comments Unknown Sex and Gender Information Value Date Recorded Sex Assigned at Not on file Legal Sex Female 10:09 AM CDT Gender Identity Not on file Sexual Orientation Not on file documented as of this encounter Miscellaneous Notes * Cerner Conversion Note - Historical ProviderMD - 10/13/2020 3:38 AM CDT [facility] Emergency Department Depart Summary PERSON INFORMATION Name Dior Hanley Age 64 Years 1955 Sex Female Language PCP Marital Status Phone [phone] Visit Id Visit Reason N and/or V Specialty Enc Type Emergency Med Service Referred by Track Group [facility] Discharge Tracking Id [id number] Checkout Checkin 10/12/2020 20:44:00 Acuity 3 - Urgent [facility] Dispo Type Arrival 10/12/2020 20:44:00 Reg Status LOS 000 02:54 Address: ALEJANDRA KENT [address] [place] [address] POWERFORM PHYSICIAN NOTES VITALS INFORMATION Vital Sign Triage Temp 98.8 Temp Route Pulse Rate 88 Respiratory Rate 18 Blood Pressure 177/ 80 LOCATION INFORMATION Arrival Nurse Unit Room Bed 10/12/2020 20:44:00 [facility] ED Waitroom ([facility]) 10/12/2020 20:47:59 [facility] ED 2 MEDICAL INFORMATION Allergy Info: [...]
--- OUTSIDE RECORDS SUMMARY | 2025-01-27 08:56 | XMS_ITS | Encounter Summary ---
Author Organization Healthcare Address [address] [place] [address] Care Team Providers Care Pharmacy Scheduler Name Role Phone Unavailable Primary Care Provider Unavailabl e Reason for Referral * Consultation (Routine) - Closed Specialty Diagnoses / Procedures Referred By Sagar cid Referred To Contact Dentist / Pain Medicine Diagnoses Obstructive sleep apnea (adult) (pediatric) Kailyn Hendrickson MD [address] [place] [address] Phone: tel: fax: Zenaida Whitaker, DDS [address] [place] [address] Phone: tel: fax: Referral ID Status Reason Start Date Expiration Date Visits Re quested Visits Authorized [id number] Closed 12/26/2024 06/27/2026 1 1 Encounter Details Date Type Department Care Team (Late st Contact Info) Description 12/26/2024 Community [facility] Community Practice [address] [place] [address] Kailyn Henrdickson MD [address] [place] [address] Obstructive sleep apnea (adult) (pediatric) (Primary [...] Description 02/20/2025 12:05 PM EST Office Visit [facility] Orofacial Pain Clinic Orofacial Pain [facility] Room E214 [address] [place] [address] Zenaida Whitaker, [facility] [address] [address] 03/25/2025 11:15 AM EST Office Visit [facility] O[facility]facial Pain Clinic Orofacial Pain [facility] Room E2 [address] [place] [address] Zenaida Whitaker, [facility] [address] [address] Scheduled Referrals Name Type Priority Associated Diagnoses Order Schedule Ambulatory Referral to Orofacial Pain Outpatient Referral Routine Obstructive sleep apnea (adult) (pediatric) Expected: 12/26/2024 (Approximate), Expires: 06/29/2026 documented as of this encounter Visit Diagnoses Diagnosis Obstructive sleep apnea (adult) (pediatric)- Primary documented in this encounter
--- OUTSIDE RECORDS SUMMARY | 2025-01-27 08:56 | XMS_ITS | Encounter Summary ---
Author Organization [employer] ([place], [place], [place], [place]) Address [address] [place] [address] Care Team Providers Care Manager Behavioral Name Role Phone Unavailable Primary Care Provider Unavailabl e Encounter Details Date Type Department Care Team (Late st Contact Info) Description 10/13/2020 Transcribed Document [facility] Family [place] [address] ProviderDaniela MD [address] [place] [address] [phone] Social History Tobacco Use Types Packs/Day Years Used Date Smoking Tobacco: Never Assessed Comments Unknown Sex and Gender Information Value Date Recorded Sex Assigned at Not on file Legal Sex Female 10:09 AM CDT Gender Identity Not on file Sexual Orientation Not on file documented as of this encounter Miscellaneous Notes * Cerner Conversion Note - Historical ProviderMD - 10/13/2020 3:38 AM CDT [facility] ADDRESS [place], [place] [phone] Name:Hayley Hanley Visit Date:10/12/2020 20:44:00 Emergency Department Care Providers: Physician: LEXUS BELTRAN MD Physician: Our doctors and staff appreciate your choice of [facility] for your emergency medical care. Read these instructions carefully. Please call us if you have any questions about your medical problem. [facility] Emergency Department [phone] [facility] Emergency Department [phone] [facility] Emergency Department [phone] Patient Education Materials Hayley Hanley has been [...] in ear, nose, and throat (ENT) problems (gravity meter operator) or a provider who specializes in [...] safe for you. General instructions ??? Take viwr-vab-qzszjfa and prescription medicines only as told by [...] provider. Document Revised: 09/05/2018 Document Reviewed: 09/05/2018 [employer] Patient Education ? 2019 [email or web address]. [facility] is an EMERGENCY Every Minute Counts [...] them up ? [facility] # [phone] ? [facility] # [phone] 1 [facility] # [phone] ? If you had cultures done and [...] quit. ? National Network of Tobacco Cessation OCyrztfzo3-734-ATZA-NOW 1 [employer] Association 2 [employer] Heart Association [phone] 3 Viktor/Taqueria Jensen [phone] FINANCIAL INFORMATION ?? [facility] provides financial counseling to anyone who requests our services. ?? Emergency Physicians are independently contracted to provide your care. You will receive a bill for the care provided to you by the Physician and/or the Physician Money Market Dealer. This will be a separat e bill [...] as recommended Patient Signature / or Patient Boomswing Operator Provider Signature Date Date/Time 10/12/2020 23:38 [...]
--- OUTSIDE RECORDS SUMMARY | 2025-01-27 08:56 | XMS_ITS | Encounter Summary ---
Author Organization [facility] Address [address] [place] [address] Care Team Providers Care Release Of Information Clerk Name Role Phone Unavailable Primary Care Provider Unavailabl e Encounter Details Date Type Department Care Team (Late st Contact Info) Description 01/09/[address] [facility] Orofacial Pain Clinic Orofacial Pain Clinic [facility] Room E2[facility] [place] [address] Bisi Aguilar [facility] [place] [address] Social History Tobacco Use Types Packs/Day Years Used Date Smoking Tobacco: Never Assessed Comments Unknown Sex and Gender Information Value Date Recorded Sex Assigned at Not on file Legal Sex Female 8:34 PM EDT Gender Identity Not on file Sexual Orientation Not on file documented as of this encounter Miscellaneous Notes * Telephone Encounter - Bisi Aguilar - 01/09/2025 4:24 PM EDT Phone call complete documented in this encounter Plan of Treatment Upcoming Encounters Date Type Department Care Team (Late st Contact Info) Description 02/20/2025 12:05 PM EST Office Visit [facility] Orofacial Pain Clinic Orofacial Pain Clinic [facility] Room E2 [address] [place] [address] Zenaida Whitaker, DDS [address] [address] 03/25/2025 11:15 AM EST Office Visit [place] [facility] Room E214 [address] [place] [address] Zenaida Whitaker, DDS [address] [facility] [address] [place] [phone] documented as of this encounter Visit Diagnoses Not on filedocumented in this encounter
--- OUTSIDE RECORDS SUMMARY | 2025-01-27 08:57 | XMS_ITS | Encounter Summary ---
Author Organization [employer] ([place], [place], [place]) Address [address] [place] [address] Care Team Providers Care Raw Material Handler Name Role Phone Unavailable Primary Care Provider Unavailabl e Encounter Details Date Type Department Care Team (Late st Contact Info) Description 10/13/2020 Transcribed Document [facility] [place] [facility] [place] [address] ProviderDaniela MD [address] [place] [address] [phone] Social History Tobacco Use Types Packs/Day Years Used Date Smoking Tobacco: Never Assessed Comments Unknown Sex and Gender Information Value Date Recorded Sex Assigned at Not on file Legal Sex Female 10:09 AM CDT Gender Identity Not on file Sexual Orientation Not on file documented as of this encounter Miscellaneous Notes * Cerner Conversion Note - Historical ProviderMD - 10/13/2020 3:55 AM CDT [facility] ADDRESS [place], [place] [phone] Name:Hayley Hanley Visit Date:10/12/2020 20:44:00 Emergency Department Care Providers: Physician: LEXUS BELTRAN MD Physician: Our doctors and staff appreciate your choice of [facility] for your emergency medical care. Read these instructions carefully. Please call us if you have any questions about your medical problem. [facility] Emergency Department [phone] [facility] Emergency Department [phone] [facility] Emergency Department [phone] Patient Education Materials Hayley Hanley has been [...] in ear, nose, and throat (ENT) problems (port traffic manager) or a provider who specializes in [...] safe for you. General instructions ??? Take uauh-ijj-gvqbwmz and prescription medicines only as told by [...] provider. Document Revised: 09/05/2018 Document Reviewed: 09/05/2018 [employer] Patient Education ? 2019 [employer]. [facility] is an EMERGENCY Every Minute Counts [...] x-ray department to pick them up ? [facility] # [phone] ? [facility] # [phone] 1 [facility] # [phone] ? If you had cultures done and [...] quit. ? National Network of Tobacco Cessation HQzcykrik2-011-OGSW-NOW 1 [employer] Lung Association 2 [employer] Heart Association [phone] 3 Viktor/Taqueria Jensen [phone] FINANCIAL INFORMATION ?? [facility] provides financial counseling to anyone who requests our services. ?? Emergency Physicians are independently contracted to provide your care. You will receive a bill for the care provided to you by the Physician and/or the Physician Soda Clerk. This will be a separat e [...] as recommended Patient Signature / or Patient Supervisor Of Officials Provider Signature Date Electronically signed by Cassidy Hood Conversion Executive Director Of Nursing Aniyahner at 07/12/2022 11:38 AM CDT documented in this encounter Plan of Treatment Not on file documented as of this encounter Visit Diagnoses Not on filedocumented in this encounter
--- OUTSIDE RECORDS SUMMARY | 2025-01-27 08:58 | XMS_ITS | Clinical Summary ---
[facility] Organization [facility] Address [address] [place] [address] Care Team Providers Care Disintegrator Operator Name Role Phone Sierra Jerry APRN Primary Care Provid er Allergies Active Allergy Reactions Criticality Noted Date Comments Diphenhydramine Other (See Comments) Low 07/17/2018 Hypertension; only intolerant to IV form Cephalexin Itching 04/07/2023 Okqwjzgntwl-Leysppvre-Yat ant Unknown - Low Severity 04/07/2023 Insulin [...] taking differently: 8 mg daily every other qmt39sn Mon and Mon, Reported on 06/18/2020 glucose [...] Health Maintenance Due Date Last Done Comments COVID-19 Vaccine (#1) 12/20/1960 MAMMOGRAM 1994 COLON CANCER SCREENING 5 YEA [...] 11/08/2024 02/09/2023, , 12/31/2020, Additional history exists COLONOSCOPY [...] with insulin Routine general medical examination at [facility] facility Screening for diabetes mellitus (DM) HEPATITIS C ANTIBODY Routine 08/20/2018 12:08 PM EDT from Last 3 Months or Most Recently Relevant to Health Maintenance Results * POC Glycosylated Hemoglobin (Hb A1C) (08/28/2018 8:28 AM EDT) Hemoglobin A1C 5.2 % [facility] Blood 08/28/2018 8:28 AM EDT Dayo Estes DO POINT OF CARE TEST ORDERABLES Final Result [facility]
[address] [place] [address], * Hepatitis C Antibody (08/20/2018 12:08 PM EDT) Hep C Virus Ab <0.1 0.0 - 0.9 s/co ratio [facility] Comment: Negative: < 0.8 Indeterminate: 0.8 - 0.9 Positive: > 0.9 The CDC recommends that a positive HCV antibody result be followed up with a HCV Nucleic Acid Amplification test ([id number]). 08/20/2018 12:0 8 PM EDT 08/20/2018 Narrative [facility] (AMBULAT[facility]) - 08/22/2018 5:35 AM EDT Performed at: [address] [place] [id number] Rehabilitation Supervisor: Keaton Viramontes PhD, Phone: [phone] Patient Fasting: Y Dayo KeraFAST Franklyn DO LAB BLOOD ORDERABLES Final Re sult Performing Organization Address City/[facility] Co de Phone Number [facility] [address] [place] [address], [place] [phone] [facility] [address] [place] [address], [place] [phone] from Last 3 Months or Most Recently Relevant to Health Maintenance Insurance [facility] MEDICARE REPLACE [facility] Medicare [employer] PPO Care Teams Disintegrator Operator Relationship Specialty Start Date End Date Sierra Jerry APRN [address] [place] [address] PCP - General Family Medicine 04/07/23
--- OUTSIDE RECORDS SUMMARY | 2025-01-27 08:58 | XMS_ITS | Patient Health Record ---
Author Organization [facility] Address [address] [place] [address] Care Team Providers Care Law Librarian Name Role Phone ClaritzaSierra Primary Care Provider [phone] Sierra Guy Unavailable [phone] Migration, Provider Unavailable Unavailable Allergies Allergen (clinical drug ingredient) Drug/Non Drug Allergy documented on EMR Reaction Allergy Type Onset Date Status IV BENADRYL (uncoded) elevated b/p Allergy Active KEFLEX (uncoded) itching Allergy Act chelsea fluticasone / umeclidinium / vilanterol Trelegy Ellipta voiding issues Drug Allergy Active insulin glargine Toujeo SoloStar Unknown Drug Allergy Active Substance with 0-ngxftvf-4-methylgl utaryl-coenzyme A reductase inhibitor mechanism of action [...] 0.2 0.0-0.4 K/mm3 BA# 0.0 0-0.2 K/mm3 DEXA Hip and Spine - Screeni ng Reviewed date:01/07/2025 02:01:11 PM Interpretation: Performing Lab: Notes/Report: M-Comprehensive Metabolic [...] 40-60 mg/dl CHLHDL 5.1 1-3.5 M-Magnesium Reviewed date:10/09/2024 12:00:19 PM Interpretation: Performing Lab: Notes/Report: MG 2.4 1.6-2.3 mg/dl M-Magnesium Reviewed date:09/24/2024 10:43:29 AM Interpretation: Performing Lab: Notes/Report: MG 1.9 1.6-2.3 mg/dl M-Hemoglobin A1C Reviewed date:09/24/2024 10:43:29 AM Interpretation: Performing Lab: Notes/Report: HGBA1C 7.3 4.0-6.0 % < 6% Non-Diabetic Level < 7% Controlled Diabetic Level > 8% Poorly Controlled Diabetic Level Mammogram: Screening Reviewed date:01/13/2025 10:22:28 AM Interpretation: Performing Lab: Notes/Report: M-PHA INR Fingerstick [...] 65 38-126 U/L M-Basic Metabolic Panel Reviewed date:10/09/2024 12:00:19 PM Interpretation: Performing Lab: Notes/Report: NA 132 136-145 mmol/L K 5.6 3.5-5.1 mmoL/L CL 99 98-107 mmol/L CO2 22 22.0-30.0 mmol/L GAP 16.6 5-15 mEq/L BUN 14 7-17 mg/dl CREATT 1.10 0.52-1.04 mg/dl GFRAA 60 >60 ML/MIN EGFR 49 >60 ml/min GLU 206 74-100 mg/dl CA 9.2 8.4-10.2 mg/dl M-Basic Metabolic Panel Reviewed date:11/05/2024 10:14:18 AM Interpretation: Performing Lab: Notes/Report: NA 139 136-145 mmol/L K 5.5 3.5-5.1 mmoL/L CL 107 98-107 mmol/L CO2 26 22.0-30.0 mmol/L GAP 11.5 5-15 mEq/L BUN 13 7-17 mg/dl CREATT 1.10 0.52-1.04 mg/dl GFRAA 60 >60 ML/MIN EGFR 49 >60 ml/min GLU 99 74-100 mg/dl CA 9.7 8.4-10.2 mg/dl M-Complete Blood Count Auto Diff [...] 37-170 ug/dL DTIBC 382 265-497 ug/dL IRONSAT 15.46000 15-55 % H-VITB12 Reviewed date:09/24/2024 09:50:35 AM [...] PREVENTION OF SYSTEMIC EMBOLISM SECONDARY TO AMI X ray : Spines, Lumbosacral Reviewed date:05/06/2024 03:25:25 PM Interpretation: Performing Lab: Notes/Report: Urinalysis Reviewed date:03/21/2024 01:23:33 PM Interpretation: Performing Lab: Notes/Report: Color/Clarity yellow clear Leuk neg Nitrite neg Urobili 0.2 Protein neg pH 6.0 Blood neg Sp. Gr. 1.015 Ketone neg Bili neg Glucose neg CT Scan : Sinuses Reviewed date:03/29/2024 01:55:15 PM Interpretation: Performing Lab: Notes/Report: X ray : Spines, Thoracic Spi ne Reviewed date:05/10/2024 02:16:14 PM Interpretation: Performing Lab: Notes/Report: Microalbumin (In-House) Reviewed date:03/21/2024 01:23:40 PM Interpretation:Normal Performing Lab: Notes/Report: Normal ALB 30mg CRE 300mg A:C <30mg/g M-Cortisol Reviewed date:11/05/2024 10:14:18 AM Interpretation: Performing Lab: Notes/Report: YINKA 14.2 6.2-19.4 ug/dL Please Note: The reference interval and flagging for this test is for an AM collection. If this is a PM collection please use: Cortisol PM: 2.3-11.9 Performed at: [address] [id number] [employer] Software Development Engineer: Keaton Viramontes PhD, Phone: [phone] H-TVITD Reviewed date:10/31/2024 05:37:47 PM Interpretation: Performing Lab: Notes/Report: TVITD 68.7 30-100 ng/mL Deficient <20 ng/mL Insufficient 20-30 ng/mL Sufficient 30-100 ng/mL Potential Toxicity >100 ng/mL M-PHA INR Fingerstick Reviewed date:02/13/2024 03:50:43 PM [...] date:10/04/2024 02:30:25 PM Interpretation: Performing Lab: Notes/Report: Medications Medication SIG (Take, Route, Frequency, Duration) Notes Start Date End Date Status DexCourse Hero G7 Sql Database Developer DIRECTED CONTINUO US GLUCOSE MONITORING; Duration: 30 [...] Comme nts SHINGRIX IM Intramuscular 12/05/2024 Administered Prevnar PCV-13 (Pneumococcal conjugate 13) IM [...] Status Risk Notes Problem Diabetic renal disease (026059219) Type 2 diabetes mellitus with diabetic chronic kidney disease (E11.22) Active confirmed Problem Hyperglycemia due to type 2 diabetes mellitus (781835823451408) Type 2 diabetes mellitus with hyperglycemia (E11.65) Active confirmed Problem Chronic pain (73054834) Other chronic pain (G89.29) Active confirmed Problem Chronic rhinitis (20604173) Chronic rhinitis (J31.0) Active confirmed Problem Sciatica (85971004) Lumbago with sciatica, left side (M54.42) Active confirmed Problem Chronic kidney disease stage 2 (056308625) Chronic kidney disease, stage 2 (mild) (N18.2) Active confirmed Problem Screening for malignant neoplasm of breast (387237397) Encounter for screening mammogram for malignant neoplasm of breast (Z12.31) Active confirmed Problem Mixed anxiety and depressive disorder (035427807) Depression with anxiety (F41.8) Active confirmed Problem Vitamin D deficiency (01512306) Vitamin D deficiency (E55.9) Active confirmed Problem Essential hypertension (87030544) Essential hypertension (I10) Active confirmed Problem Vitamin B12 deficiency (non anemic) (53867504) B12 deficiency (E53.8) Active confirmed Problem Restless legs syndrome (39668372) Restless leg syndrome (G25.81) Active confirmed Problem Allergic rhinitis (96651502) Chronic allergic rhinitis (J30.9) Active confirmed Problem Body mass index 30.00 to 34.99 (492595505701567) BMI 34.0-34.9,adult (Z68.34) Active confirmed Problem Long-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 (959772972) terminal carman (current) use of insulin (Z79.4) Active confirmed Problem Chronic pain (05437283) Other chronic pain (G89.29) Active confirmed Problem Obese class II (093085557799222) BMI 38.0-38.9,adult (Z68.38) Active confirmed Problem Gastroesophageal reflux disease without esophagitis (697039390) Gastroesophageal reflux disease without esophagitis (K21.9) Active confirmed Problem Postmenopausal state (25361716) Post menopausal syndrome (Z78.0) Active confirmed Problem Obese class II (008769730154766) BMI 37.0-37.9, adult (Z68.37) Active confirmed Problem Obese class II (803303293910833) BMI 36.0-36.9,adult (Z68.36) Active confirmed Problem Arthritis of hip (98574562) Hip arthritis (M19.90) Active confirmed Problem Anxiety (23933973) Situational anxiety (F41.8) Active confirmed Problem Peripheral venous insufficiency (01556733) Venous (peripheral) insufficiency (I87.2) Active confirmed Problem Major depression, single episode (08173821) Depression, reactive (F32.9) Active confirmed Problem Localized, primary osteoarthritis of the pelvic region and thigh (750962360) 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) Active confirmed Problem Ventricular premature complex (disorder) (087488550) PVC (premature ventricular contraction) (I49.3) Active confirmed Problem Moderate persistent asthma (947853960) Asthma, moderate persistent (J45.40) Active confirmed Problem Recurrent deep vein thrombosis (DVT) of both lower extremities (I82.403) Active confirmed Problem Spondylosis without myelopathy (89716453) Arthritis of back (M47.9) Active confirmed Problem Obstructive sleep apnea syndrome (18812711) MARYAM on CPAP (G47.33) Active confirmed Problem Postmenopausal osteoporosis (847587147) Postmenopausal osteoporosis (M81.0) Active confirmed Problem Mixed hyperlipidemia (920443321) Mixed dyslipidemia (E78.2) Active confirmed Problem Moderate major depression, single episode (46551555) Current moderate episode of major depressive disorder without prior episode (F32.1) Active confirmed Problem History of iron deficiency (581581599) History of iron deficiency (Z86.39) Active confirmed Problem 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) Active confirmed Problem Anticoagulant therapy (705646672) Anticoagulated on Coumadin (Z79.01) Active confirmed Problem Arthropathy of right sacroiliac joint (92676392238778151 ) Arthropathy of right sacroiliac joint (M47.818) Active confirmed Problem Low back pain (658939426) Low back pain, unspecified (M54.50) Active confirmed Problem Arthritis of hip (14694843) Arthritis of hip (M16.10) Active confirmed Problem Hypervitaminosis D (59028939) High vitamin D level (E67.3) Active confirmed Problem Iron deficiency anemia (20695245) Iron deficiency anemia (D50.9) Problem resolved confirmed Vital Signs Heart Rate 98 /min 12/05/2024 Temperature 97.6 degrees Fahrenheit 12/05/2024 Oximetry 96 04/05/2024 O2 sat 96% RA. Blood pressure diastolic 60 mm Hg 12/05/2024 Height 64 in 12/05/2024 Blood pressure systolic 124 mm Hg 12/05/2024 Weight 201.6 lbs 12/05/2024 BMI 34.6 kg/m2 12/05/2024 Encounters Encounter Location Date Provider Diagnosis [facility] [address] [place] [address] 07/13/2024 Provider Migration Type 2 diabetes mellitus with diabetic chronic kidney disease E11.22 [facility] [address] [place] [address] 02/08/2024 Sierra Jerry Type 2 diabetes mellitus with diabetic chronic kidney disease E11.22 ; Subacute sinusitis, unspecified location J01.90 and Nasal congestion R09.81 [facility] [address] [place] [address] 03/21/2024 Sierra Jerry Type 2 diabetes mellitus with diabetic chronic kidney disease E11.22 ; Right flank pain R10.9 ; Chronic rhinitis J31.0 ; Immunization(s) administered Z23 ; Recurrent deep vein thrombosis (DVT) of both lower extremities I82.403 and Essential hypertension I10 [facility] [address] [place] [address] 04/05/2024 Sierra Goowell Acute recurrent frontal sinusitis J01.11 [facility] [address] [place], [place] [address] 05/02/2024 Sierra Jerry Low back pain, unspecified M54.50 ; Other chronic pain G89.29 and Type 2 diabetes mellitus with diabetic chronic kidney disease E11.22 [facility] [address] [place] [address] 09/23/2024 Sierra Jerry Type 2 diabetes mellitus [...] side M54.42 and Other chronic pain G89.29 [facility] [address] [facility] [address] [place], [place] [address] 10/07/2024 Sierra Jerry Type 2 diabetes mellitus with diabetic chronic kidney disease E11.22 ; Pre-syncope R55 ; Essential hypertension I10 ; History of iron deficiency Z86.39 and Hyperkalemia E87.5 [facility] [address] [facility] [address] [place], [place] [address] 10/31/2024 Sierra Claritza Type 2 diabetes mellitus with diabetic chronic kidney disease E11.22 ; Essential hypertension I10 ; High vitamin D level E67.3 and Hyperkalemia E87.5 [facility] [address] [facility] [address] [place], [place] [address] 12/05/2024 Sierra Jerry Encounter for immunization Z23 [...] Postmenopausal osteoporosis M81.0 and BMI 34.0-34.9,adult Z68.34 [facility] [address] [facility] [address] [place], [place] [address] 01/31/2024 [facility] [address] [address] 03/11/2024 [facility] Type 2 diabetes mellitus with diabetic chronic kidney disease E11.22 [facility] [address] [facility] [address] [place], [place] [address] 03/25/2024 Sierra Claritza Type 2 diabetes mellitus with diabetic chronic kidney disease E11.22 [facility] [address] [facility] [address] [place] [address] 05/02/2024 [facility] [address] [facility] [address] [place] [address] 05/06/2024 Sierra Claritza Arthritis of back M47.9 [facility] [address] [place] [address] 05/08/2024 Sierra Claritza Mid back pain M54.9 [facility] [address] [place] [address] 05/23/2024 [facility] Type 2 diabetes mellitus with diabetic chronic kidney disease E11.22 [facility] [address] [place] [address] 06/27/2024 Sierra Claritza [facility] [address] [place] [address] 07/15/2024 Sierra Claritza [facility] [address] [place] [address] 09/23/2024 Sierra Claritza [facility] [address] [place] [address] 09/24/2024 Sierra Claritza [facility] [address] [place] [address] 09/24/2024 [facility] Type 2 diabetes mellitus with diabetic chronic kidney disease E11.22 [facility] [address] [place] [address] 09/25/2024 [facility] Lumbago with sciatic a, left side M54.42 [facility] [address] [place] [address] 10/24/2024 [facility] [address] [place] [address] 12/11/2024 Sierra Claritza Assessments Encounter Date Diagnosis (ICD Code) Assessment Notes Treatment Notes Treatment Clinical Notes Section Notes 02/08/2024 Type 2 diabetes mellitus with diabetic [...] E67.3) 10/07/2024 Essential hypertension (ICD-10 - I10) 12/05/2024 Chronic kidney disease, stage 2 (mild) (ICD-10 - N18.2) 09/23/2024 Essential hypertension (ICD-10 - I10) well controlled on current regimen 03/21/2024 Chronic rhinitis (ICD-10 - J31.0) 02/08/2024 Nasal congestion (ICD-10 - R09.81) 05/02/2024 Type 2 diabetes mellitus with diabetic chronic kidney disease (ICD-10 - E11.22) 03/21/2024 Immunization(s) administered (ICD-10 - Z23) 09/23/2024 History of iron deficiency (ICD-10 - Z86.39) 12/05/2024 Type 2 diabetes mellitus with diabetic chronic kidney disease (ICD-10 - E11.22) 10/31/2024 Hyperkalemia (ICD-10 - E87.5) 10/07/2024 History of iron deficiency (ICD-10 - Z86.39) 12/05/2024 Medicare annual wellness visit, subsequent (ICD-10 [...] both lower extremities (ICD-10 - I82.403) 09/23/2024 Acute non-recurrent maxillary sinusitis (ICD-10 - J01.00) 12/05/2024 Essential hypertension (ICD-10 - I10) 09/23/2024 Lumbago with sciatica, left side (ICD-10 [...] DIFF 06/20/2014 H-CBC with AUTO DIFF 07/24/2017 H-CBC with AUTO DIFF 11/26/2014 H-CBC with AUTO DIFF 08/31/2015 H-VITAMIN B12 07/24/2017 H-VITAMIN B6 (PYRIDOXAL PHOSPHAT 015 H-FERRITIN 11/26/2014 H-FERRITIN 07/24/2017 H-CMP 07/24/2017 H-CMP 08/31/2015 H-CMP 11/26/2014 H-CMP 06/20/2014 H-CMP 11/30/2015 H-CMP 03/20/2017 H-MAGNESIUM 06/20/2014 H-LIPID PANEL 11/26/2014 [...] Metabolic Panel 12/26/19 M-Comprehensive Metabolic Panel 12/28/19 M-Comprehensive Metabolic Panel 11/30/19 M-Hemoglobin A1C 12/27/2018 M-Hemoglobin A1C 12/26/2019 M-Hemoglobin A1C 11/30/2023 M-Lipid Panel 11/30/2023 M-Lipid Panel 12/26/2019 M-Lipid Panel 12/27/2018 M-Vitamin B12 12/27/2018 M-Vitamin B12 11/30/2023 M-Vitamin B12 02/09/2023 M-Vitamin B12 07/09/2020 M-Vitamin B12 09/23/2024 M-Vitamin D 25 Hydroxy 10/31/2024 M-Vitamin D 25 Hydroxy 09/23/2024 M-Vitamin D 25 Hydroxy 07/09/2020 M-Vitamin D 25 Hydroxy 02/09/2023 M-Vitamin D 25 Hydroxy 11/30/2023 M-Vitamin D 25 Hydroxy 12/27/2018 M-Iron and TIBC 09/23/2024 M-Microalb/Creat Ratio, [facility] Ur 019 M-Microalb/Creat Ratio, [facility] Ur 019 M-Microalb/Creat Ratio, [facility] Ur 018 M-Microalb/Creat Ratio, [facility] Ur 024 M-Microalb/Creat Ratio, [facility] Ur 023 M-Microalb/Creat Ratio, [facility] Ur 020 Physical Therapy Eval and Treat 07/11/19 24 Physical Therapy Eval and Treat 05/06/19 25 Future Test Test Name Order Date H-BMP 07/09/2012 Insurance Providers Payer Name Payer Address Payer Phone Subscriber Number Group Number Insured Name Patient Relationship to Insured Coverage Start Date Coverage End Date [employer] MEDICARE [address] [address] [place] [address] [id number] Dior Hanley Self - patient is the [...]
--- OUTSIDE RECORDS SUMMARY | 2025-01-27 08:58 | XMS_ITS | Referral Summary ---
Author Organization [employer] ([place], [place], [place], [place]) Address [address] [place] [address] Care Team Providers Care Rn Chemical Dependency Name Role Phone Unavailable Primary Care Provider [...] Treatment Not on file Insurance [place] FITZGERALD [id number] [facility] MEDICARE ADVANTAGE
--- OUTSIDE RECORDS SUMMARY | 2025-01-27 08:58 | XMS_ITS | Encounter Summary ---
Author Organization [employer] ([place], [place], [place]) Address [address] [place] [address] Care Team Providers Care Grease Maker Name Role Phone Unavailable Primary Care Provider Unavailabl e Encounter Details Date Type Department Care Team (Late st Contact Info) Description 06/06/2022 Outside Orders [facility] Outpatient Physical Therapy [address] [facility] [address] [place] [address] Oliverio Ricks MD [address] [place] [address] [address] [place] [address] Hoarseness (Primary Dx) Social History Tobacco Use [...]
--- OUTSIDE RECORDS SUMMARY | 2025-01-27 08:58 | XMS_ITS | Encounter Summary ---
Author Organization [employer] ([place]) Address [address] [place] [address] Care Team Providers Care Driver License Agent Name Role Phone Unavailable Primary Care Provider Unavailabl e Encounter Details Date Type Department Care Team (Late st Contact Info) Description 10/13/2020 Transcribed Document [facility] Family Medicine [facility] [place] [address] ProviderDaniela MD [address] [place] [id number] Social History Tobacco Use Types Packs/Day Years Used Date Smoking Tobacco: Never Assessed Comments Unknown Sex and Gender Information Value Date Recorded Sex Assigned at Not on file Legal Sex Female 10:09 AM CDT Gender Identity Not on file Sexual Orientation Not on file documented as of this encounter Miscellaneous Notes * Cerner Conversion Note - Historical ProviderMD - 10/13/2020 3:55 AM CDT [facility] Emergency Department Depart Summary PERSON INFORMATION Name Dior Hanley Age 64 Years 1955 Sex Female Language PCP Marital Status Phone [phone] Visit Id Visit Reason N and/or V Specialty Enc Type Emergency Med Service Referred by Track Group [facility] Discharge Tracking Id [id number] Checkout 10/12/2020 23:55:12 Checkin 10/12/2020 20:44:00 Acuity 3 - Urgent [facility] Dispo Type Arrival 10/12/2020 20:44:00 Reg Status LOS 000 03:11 Address: ALEJANDRA KENT [address] [place] [address] [employer] PH[employer]ICIAN NOTES VITALS INFORMATION Vital Sign Triage Temp 98.8 Temp Route Pulse Rate 88 Respiratory Rate 18 Blood Pressure 177/ 80 LOCATION INFORMATION Arrival Nurse Unit Room Bed 10/12/2020 20:44:00 [facility] ED Waitroom ([facility]) 10/12/2020 20:47:59 [facility] ED 2 10/12/2020 23:55:12 [facility] ED Checkout ([facility]) MEDICAL INFORMATION Allergy Info: Benadryl; penicillin; [...]
--- OUTSIDE RECORDS SUMMARY | 2025-01-27 08:58 | XMS_ITS | Clinical Summary ---
Author Organization [employer] ([place], [place], [place]) Address [address] [place] [address] Care Team Providers Care Report Writer Name Role Phone Unavailable Primary Care [...] Treatment Not on file Insurance [place] FIT[place]GERALD [id number] [facility] MEDICARE ADVANTAGE
--- OUTSIDE RECORDS SUMMARY | 2025-01-27 08:58 | XMS_ITS | Encounter Summary ---
Author Organization [employer] ([place], [place], [place], [place]) Address [address] [place] [address] Care Team Providers Care Acquisition Marketing Coordinator Name Role Phone Unavailable Primary Care Provider Unavailabl e Encounter Details Date Type Department Care Team (Late st Contact Info) Description 10/13/2020 Transcribed Document [facility] [address] ProviderDaniela MD [address] [place] [address] [id number] Social History Tobacco Use Types Packs/Day Years Used Date Smoking Tobacco: Never Assessed Comments Unknown Sex and Gender Information Value Date Recorded Sex Assigned at Not on file Legal Sex Female 10:09 AM CDT Gender Identity Not on file Sexual Orientation Not on file documented as of this encounter Miscellaneous Notes * Cerner Conversion Note - Historical ProviderMD - 10/13/2020 3:55 AM CDT [facility] ADDRESS [place], [place] [phone] Name:Hayley Hanley Visit Date:10/12/2020 20:44:00 Emergency Department Care Providers: Physician: LEXUS BELTRAN MD Physician: Our doctors and staff appreciate your choice of [facility] for your emergency medical care. Read these instructions carefully. Please call us if you have any questions about your medical problem. [facility] Emergency Department [phone] [facility] Emergency Department [phone] [facility] Emergency Department [phone] Patient Education Materials Hayley Hanley has been [...] in ear, nose, and throat (ENT) problems (electrical timing device calibrator) or a provider who specializes in disorders [...] safe for you. General instructions ??? Take qfcs-wmb-zmqjykm and prescription medicines only as told by [...] provider. Document Revised: 09/05/2018 Document Reviewed: 09/05/2018 Impact [employer] Patient Education ? 2019 Door 6. STROKE is an EMERGENCY Every Minute Counts [...] x-ray department to pick them up ? [facility] # [phone] ? [facility] # [phone] 1 [facility] # [phone] ? If you had cultures done and [...] quit. ? National Network of Tobacco Cessation [id number]-SWBY-NOW 1 [place] [employer] Association 2 [place] Heart Association [phone] 3 Viktor/Taqueria Jensen [phone] FINANCIAL INFORMATION ?? [facility] provides financial counseling to anyone who requests our services. ?? Emergency Physicians are independently contracted to provide your care. You will receive a bill for the care provided to you by the Physician and/or the Physician Bag Inspector. This will be a separat e bill [...] as recommended Patient Signature / or Patient Tree Faller Provider Signature Date Date/Time 10/12/2020 23:55 [facility] [...]
--- OUTSIDE RECORDS SUMMARY | 2025-01-27 08:59 | XMS_ITS | Patient Health Record ---
[facility] Address [address] [place] [id number] Care Team Providers Care Regulatory Affairs Assistant Name Role Phone Laureano Hernandez Primary Care [...] review and pick correct strength-formulati on from [employer] options. If intended option is not shown, [...] tab(s) orally 3 times a day Active Itucjfiyji-DRDX-Mjel eine 50-325-40 MG 1 or 2 tab(s) [...] review and pick correct strength-formulati on from [employer] options. If intended option is not shown, discontinue and re-order from Quick Search* Active Immunizations Vaccine Route Administration Date Status Comme nts xFluzone (6mos and older)-trivalent IM Intramuscular 01/25/2012 Administered Problems Problem Type SNOMED Code ICD Code Onset Dates Problem Status W/U Status Risk Notes Problem Type II diabetes mellitus without complication (329608235) DM II [Diabetes mellitus type II] (250.00) Active confirmed Plan Of Treatment No Information Insurance Providers Payer Name Payer Address Payer Phone Subscriber Number Group Number Insured Name Patient Relationship to Insured Coverage Start Date Coverage End Date [employer] [place] [address] [place] [address] [phone] [id number] Dior Hanley Self - patient is the insured Medical (General) History Medical History History ICD Code type 2 diabetes fibromyalgia DVT (multiple) onset in 1975 Memory Loss, seen by Dr. Clark in [facility]. Patient with h/o abnormal EEG asthma Surgical History Surgery Date(Month/Year) Exploratory Surgery 1982 Galbladder Removal 1984 Knee Surgery Left 1992 Hospitalization History Reason Date(Month/Year) [facility] - [facility] Hospitalized Numerous times for Blood Cl ots
[2025-01-27 11:43] LABS: PHA INR Fingerstick 2.5 (0.9-1.1)
== END 2025-01-27 11:45 ==
LOC: ACC 08:43
PROVIDERS: PCP Nurse Practitioner Family; Visit Provider Internal Medicine Adolescent Medicine
DX: Z79.01 Long term (current) use of anticoagulants (principal)
CPT/HCPCS: 85610; 99211; G0463

== ENCOUNTER 2025-03-10 08:54 | Outpatient (CLI) | payer MEDICARE, SELFPAY ==
--- OUTSIDE RECORDS SUMMARY | 2023-04-07 13:52 | XMS_ITS | Encounter Summary ---
[facility] Address [address] [place] [address] Care Team Providers Care Muleser Name Role Phone Sierra Jerry APRN Primary Care Provid er Encounter Details Date Type Department Care Team (Late st Contact Info) Description 04/07/2023 1:52 PM EST Hospital Encounter [facility] PULMONARY & CRITICAL CARE MEDICINE [facility] [place] [address] Social History Tobacco Use Types Packs/Day Years Used Date Smoking Tobacco: Never Smokeless Tobacco: Never Alcohol Use Standard Drinks/Week Comments No 0 (1 standard drink = 0.6 oz pur e alcohol) AUDIT-C Answer Date Recorded Frequency of Alcohol Consumption Never 07/17/2018 Average Number of Drinks Not on file 019 Frequency of Binge Drinking Not on file 12/2018 PHQ-2 Answer Date Recorded PHQ-2 Score 0 08/20/2018 Abuse Screen Answer Date Recorded Unsafe at Home or Work/School Not on file Feels Threatened by Someone? Not on file 12/2022 Does Anyone Keep You from Co ntacting Others or Doint Things Outside the Home? Not on file 01/16/2023 Physical Sign of Abuse Present Not on file 1 Housing Stability Answer Date Recorded Current Living Arrangements Not on file 12/2022 Potentially Unsafe Housing Conditions Not on anahi e 01/16/2023 Family and Community Support Answer Casimiro e Recorded Help with Day-to-Day Activities Not on file 01/16/2023 Lonely or Isolated Not on file 01/16/2023 Employment Answer Date Recorded Do you want help finding or keeping work or a trish b? Not on file 01/16/2023 Disabilities Answer Date Recorded Concentrating, Remembering, or Making Decisions Difficulty Not on file 01/16/2023 Doing Errands Independently Difficulty Not on fi le 01/16/2023 Education Answer Date Recorded Help with school or training? Not on file Preferred Language Not on file 01/16/2023 Comments No Sex and Gender Information Value Date Recorded Sex Assigned at Not on file Legal Sex Female 10:09 AM EDT Gender Identity Not on file Sexual Orientation Not on file documented as of this encounter Plan of Treatment Not on file documented as of this encounter Procedures Procedure Name Priority Date/Time Associated Diagnosis Comments XR CHEST PA AND LATERAL Routine 04/07/2023 1:53 PM EST Asthma, unspecified asthma severity, unspecified whether complicated, unspecified whether persistent documented in this encounter Results * XR Chest PA & Lateral (04/07/2023 1:53 PM EST) Anatomical Region Laterality Modality Body, Chest N/A Radiographic May ging Narrative 04/07/2023 2:31 PM EST PA and lateral chest x-rays obtained Cardiac silhouette was normal in size CT ratio is 14 x 30 Anterior eventration of the right hemidiaphragm Calcified nodules in the pulmonary parenchyma and johnathan consistent with old granulomatous disease No effusions, infiltrates, or consolidation Clark Clark MD IMG DIAGNOSTIC IMAGING ORDERABLES Final Result documented in this encounter Visit Diagnoses Not on filedocumented in this encounter Care Teams Muleser Relationship Specialty Start Date End Date Sierra Jerry APRN [address] [place] [id number] PCP - General Family Medicine 04/07/23 documented as of this encounter
--- OUTSIDE RECORDS SUMMARY | 2025-01-15 12:00 | XMS_ITS | Encounter Summary ---
Author Organization [facility] Address [address] [place] [address] Care Team Providers Care Band Log Mill And Carriage Operator Name Role Phone Unavailable Primary Care Provider Unavailabl e Reason for Visit * Consultation (Routine) - Closed Specialty Diagnoses / Procedures Referred By Sagar t Referred To Contact Dentist / Pain Medicine Diagnoses Obstructive sleep apnea (adult) (pediatric) Kailyn Hendrickson MD [address] [place] [address] Phone: tel: fax: Zenaida Whitaker, DDS [address] [address] Phone: tel: fax: Referral ID Status Reason Start Date Expiration Date Visits Re quested Visits Authorized [id number] Closed 12/26/2024 06/27/2026 1 1 Encounter Details Date Type Department Care Team (Late st Contact Info) Description 01/15/2025 1:00 PM EDT [facility] [place] [facility] Room E214 [address] [place] [address] Zenaida Whitaker, DDS [address] [address] Viridiana Maki Obstructive sleep apnea (Primary Dx) Social History Tobacco Use Types Packs/Day Years Used Date Smoking Tobacco: Never Assessed Comments Unknown Sex and Gender Information Value Date Recorded Sex Assigned at Not on file Legal Sex Female 8:34 PM EDT Gender Identity Not on file Sexual Orientation Not on file documented as of this encounter Last Filed Vital Signs Vital Sign Reading Time Taken Comments Blood Pressure 131/78 01/15/2025 1:41 PM EDT Pulse 88 01/15/2025 1:41 PM EDT Temperature 35.7 C (96.2 F) 01/15/2025 1:41 PM EDT Respiratory Rate - - Oxygen Saturation 95% 01/15/2025 1:41 PM EDT Inhaled Oxygen Concentration - - Weight 90.3 kg (199 lb 1.2 oz) 01/15/2025 1:41 P M EDT Height 167.6 cm (5' 6 ) 01/15/2025 1:41 PM EDT Body Mass Index 32.13 01/15/2025 1:41 PM EDT documented in this encounter Miscellaneous Notes * Progress Notes - Viridiana Maki - 01/15/2025 1:00 PM EDT Patient referred by Dr. Hendrickson. Initial evaluation of a 69 y.o. female referred referred for the evaluation for the management of obstructive sleep apnea with oral appliance therapy. HISTORY OF CHIEF COMPLAINT: Mrs. Dior Hanley completed a sleep study (PSG) on 12/26/2022 revealing an AHI average: 18 and a minimum oxygen saturation: 84%. These findings were consistent with moderate obstructive sleep apnea. Patient reported daytime tiredness (ESS = 12). She reports she has worn her CPAP for over 2 years with 100% compliance at last report with sleep medicine, but is now unable to tolerate CPAP and is interested in more comfortable alternatives like oral appliance therapy for the management of her sleep apnea. REVIEW OF SYSTEMS: The patient reported the following positive findings: CV: unremarkable. HEM: hemorrhage, bruise easily, tendency to bleed longer than normal, and taking blood thinner. NEUR: dizziness and headaches. GI: heart burn. PULM: snoring, asthma episodes, and sinus trouble. DERM & MS: arthritis and joint pain (right hip and neck, lower back). END: unremarkable. : urination at night. HENT: tinnitus. OTHERS: unremarkable. Past Medical History[1] Family History[2] Surgical History[3] Medications Ordered Prior to Encounter[4] Allergies[5] CLINICAL EXAMINATION: There were no vitals taken for this visit. Neck circumference: 14 inches. Cervical exam: Head and neck flexion, extension, bilateral rotation, and bilateral tilt movements elicited familiar local tenderness (no referred pain was reported), and were restricted (patient reported restriction due to pain) . Muscle and joint palpation: Tenderness elicited upon palpation of: - Left SCM (familiar; no referred pain was reported). - Right SCM (familiar; no referred pain was reported). - Left occipitalis (familiar; no referred pain was reported). - Right occipitalis (familiar; no referred pain was reported). - Left trapezius (familiar; no referred pain was reported). - Right trapezius (familiar; no referred pain was reported). - Left paracervicals (familiar; no referred pain was reported). - Right paracervicals (familiar; no referred pain was reported). - Cervical spine (familiar; no referred pain was reported). Range of movement: Max comfortable opening 50 mm, max opening 51 mm (uncorrected deviation to left 2mm), left excursive 9 mm, right excursive 9 mm, vertical overlap 3 mm, horizontal overlap 2 mm. Midlines coincidental in MIP, 2mm shift to left at maximum opening. Total protrusion measured today 5mm. Intracapsular interferences: Right pre-auricular popping (asymptomatic) with mouth opening (at 22 mm) and protrusive movements. Intraoral examination: No lymphadenopathy noted. No swelling, masses or lesions noted. Bilateral linea alba. Mallampati Score: Class 4. Bilateral scalloped tongue. Posterior tooth relationship: Class I Bilateral. Midline: centered. Anterior tooth relationship: Class I Bilateral. Dentition: Absence of teeth #1, 16, 17, 31, 32. Periodontal screening: WNL. Occlusal examination: [place] showed occlusal contacts between all the teeth and their antagonists.. RADIOGRAPHIC INTERPRETATION: Film ordered: Panoramic image. Date ordered: 01/15/25. Radiographic indications: Screening. Radiographic observations: Well-corticated left and right condyles with no signs of resorption. Maxillary sinuses are clear. Absence of teeth #'s 1, 16, 17, 31, 32. Mild generalized alveolar bone loss. No other bony or dental pathology noted. [place] #15. ASSESSMENT: moderate obstructive sleep apnea (intolerant of CPAP). CONTRIBUTING FACTORS: airway anatomy, BMI, CPAP intolerance TREATMENT RECOMMENDATIONS: We believe that the patient is a good candidate for a mandibular advancement device to be used for the management of obstructive sleep apnea in addition to weight loss. Advantages and disadvantages of the mandibular advancement device were discussed with the patient. Prior authorization has been requested from the patient's medical insurance provider. Clinical and radiographic findings were discussed with the patient and the patient's questions wereanswered. Discussed designs that Medicare covers and pt prefers the Panthera DSAD. If pt elects to pay portion sog-re-hgcqzv for other appliance designs, we can discuss those designs at scan visit. The patient will return for digital impressions and a protrusive bite record once this is received.Get consent at this visit. If the patient tolerates the appliance, we will slowly advance the mandible; once we are at what webelieve is an appropriate advancement, we will suggest that a second sleep study be completed to measure the effectiveness of the appliance. Letter sent to referring physician (via [employer]). [1] No past medical history on file. [2] No family history on file. [3] No past surgical history on file. [4] No current outpatient medications on file prior to visit. No current facility-administered medications on file prior to visit. [5] Not on File Cosigned by Zenaida Whitaker DDS at 01/16/2025 9:41 AM EDT Associated attestation - Zenaida Whitaker DDS - 01/16/2025 9:41 AM EDT I saw and evaluated the patient with the photography teacher, and performed craig portions of the history and examination. I discussed the findings and the plan with the resident and conveyed the information to the patient. I agree with the resident's findings and plan as documented in the residents note. I also evaluated the radiograph taken today and I agree with the radiographic interpretation as written in the resident's note. documented in this encounter Plan of Treatment Upcoming Encounters Date Type Department Care Team (Late st Contact Info) Description 03/25/2025 11:15 AM EST Office Visit [place] [facility] Room E214 [address] [place] [address] Zenaida Whitaker, DDS [address] [facility] [address] [place] [phone] documented as of this encounter Visit Diagnoses Diagnosis Obstructive sleep apnea- Primary Obstructive sleep apnea (adult) (pediatric) documented in this encounter Additional Health Concerns Assessment Noted Time A Body Mass Index follow-up plan has been documented for the patient 01/16/2025 9:42 AM EDT documented as of this encounter
--- OUTSIDE RECORDS SUMMARY | 2025-02-20 12:05 | XMS_ITS | Encounter Summary ---
Author Organization Healthcare Address [address] [place] [address] Care Team Providers Care Quarter Lining Smoother Name Role Phone Unavailable Primary Care Provider Unavailabl e Encounter Details Date Type Department Care Team (Late st Contact Info) Description 02/20/2025 12:05 PM EST Office Visit [facility] Room [address] [place] [address] Zenaida Whitaker, DDS [address] [place] [address] Shilpi Mccall Obstructive sleep apnea (Primary Dx) Social History [...] Sign Reading Time Taken Comments Blood Pressure 116/55 02/20/2025 12:13 PM EST Pulse 86 02/20/2025 12:13 PM EST Temperature 36.4 C (97.6 F) 02/20/2025 12:13 PM EST Respiratory Rate - - Oxygen Saturation 96% 02/20/2025 12:13 PM EST Inhaled Oxygen Concentration - - Weight 86.2 kg (190 lb) 02/20/2025 12:13 PM EST Height 167.6 cm (5' 6 ) 02/20/2025 12:13 PM EST Body Mass Index 30.67 02/20/2025 12:13 PM EST documented in this encounter Miscellaneous Notes * Progress Notes - Shilpi Mccall - 02/20/2025 12:05 PM EST Patient returned to the clinic for digital impressions and protrusive record for fabrication of a sleep appliance for the management of obstructive sleep apnea. HPI: Patient reported no changes since her last visit. General medical history: No changes reported since last appointment Examination: Visit Vitals BP 116/55 Pulse 86 Temp 36.4 ??C (97.6 ??F) Ht 1.676 m (5' 6 ) Wt 86.2 kg (190 lb) SpO2 96% BMI 30.67 kg/m?? Procedures performed: Patient elected to have a Panthera classic appliance fabricated. Yonas Gauge was recorded at 100% of her max protrusive movement at 9mm (recording -4 to +5 mm). Prescription sent electronically. Consent form signed. Digital impression taken using The [employer] Peace Prize 5 scanner. Assessment: Moderate obstructive sleep apnea (unmanaged). Plan: Patient will return for delivery upon return of appliance. On 03/25/25. However patient was assuredwe are available if needed beforehand. Cosigned by Zenaida Whitaker DDS at 02/24/2025 10:52 AM EST Associated attestation - Zenaida Whitaker DDS - 02/24/2025 10:52 AM EST I saw and evaluated the patient, I discussed the case with the exceptional student education aide and agree with the notes as documented below. documented in this encounter Plan of Treatment Upcoming Encounters Date Type Department Care Team (Late st Contact Info) Description 03/25/2025 11:15 AM EST Office Visit [facility] Room [address] [place] [address] Zenaida Whitaker DDS [address] [place] [address] Scheduled Orders Name Type Priority Associated Diagnoses Orde r Schedule DENTAL LAB Dental Routine Obstructive sleep apnea Ordered: 02/24/2025 documented as of this encounter Procedures Procedure Name Priority Date/Time Associated Diagnosis Comments [place] ORAL DEVICE/APPLIANCE CUSFAB- IN PROCESS Routine 02/20/2025 12:05 PM EST Obstructive sleep apnea documented in this encounter Visit Diagnoses Diagnosis Obstructive sleep apnea- Primary Obstructive sleep apnea (adult) (pediatric) documented in this encounter Additional Health Concerns Assessment Noted Time A Body Mass Index follow-up plan has been documented for the patient 02/24/2025 10:53 AM EST documented as of this encounter
--- OUTSIDE RECORDS SUMMARY | 2025-03-10 09:10 | XMS_ITS | Encounter Summary ---
Author Organization Healthcare Address [address] [place] [address] Care Team Providers Care Cargo Bracer Name Role Phone Unavailable Primary Care Provider Unavailabl e Reason for Referral * Consultation (Routine) - Closed Specialty Diagnoses / Procedures Referred By Sagar cid Referred To Contact Dentist / Pain Medicine Diagnoses Obstructive sleep apnea (adult) (pediatric) Kailyn Hendrickson MD [address] [place] [place] [address] Phone: tel: fax: Zenaida Whitaker, DDS [address] [place] [address] Phone: tel: fax: Referral ID Status Reason Start Date Expiration Date Visits Re quested Visits Authorized [id number] Closed 12/26/2024 06/27/2026 1 1 Encounter Details Date Type Department Care Team (Late st Contact Info) Description 12/26/2024 Community [facility] Community Practice [address] [place] [address] Kailyn Hendrickson MD [address] [place] [address] Obstructive sleep apnea [...] Clinic Orofacial Pain Clinic [facility] Room [address] [place] [address] Zenaida Whitaker, DDS [address] [facility] [address] [place] [address] Scheduled Referrals Name Type Priority Associated Diagnoses Order Schedule Ambulatory Referral to Orofacial Pain Outpatient Referral Routine Obstructive sleep apnea (adult) (pediatric) Expected: 12/26/2024 (Approximate), Expires: 06/29/2026 documented as of this encounter Visit Diagnoses Diagnosis Obstructive sleep apnea (adult) (pediatric)- Primary documented in this encounter
--- OUTSIDE RECORDS SUMMARY | 2025-03-10 09:10 | XMS_ITS | Encounter Summary ---
Author Organization [employer] ([place], [place], [place], [place], [place]) Address [address] [place] [address] Care Team Providers Care Electric Frying Pan Repairer Name Role Phone Unavailable Primary Care Provider Unavailabl e Encounter Details Date Type Department Care Team (Late st Contact Info) Description 10/13/2020 Transcribed Document [facility] [place] [facility] [place] [address] ProviderDaniela MD [address] [place] [address] [id number] Social History Tobacco Use Types Packs/Day Years [...] - 10/13/2020 3:55 AM CDT [facility] Emergency Department Depart Summary PERSON INFORMATION Name Dior Hanley Age 64 Years 1955 Sex Female Language PCP Marital Status Phone [id number] Visit Id Visit Reason N and/or V Specialty Enc Type Emergency Med Service Referred by Track Group [facility] Discharge Tracking Id [id number] Checkout 10/12/2020 23:55:12 Checkin 10/12/2020 20:44:00 Acuity 3 - Urgent [facility] Dispo Type Arrival 10/12/2020 20:44:00 Reg Status LOS 000 03:11 Address: ALEJANDRA KENT [address] [place] [address] POWERFORMS PHYSICIAN NOTES VITALS INFORMATION Vital Sign Triage Temp 98.8 Temp Route Pulse Rate 88 Respiratory Rate 18 Blood Pressure 177/ 80 LOCATION INFORMATION Arrival Nurse Unit Room Bed 10/12/2020 20:44:00 [facility] ED Waitroom ([facility]) 10/12/2020 20:47:59 [facility] ED 2 10/12/2020 23:55:12 [facility] ED Checkout ([facility]) MEDICAL INFORMATION Allergy Info: Benadryl; penicillin; erythromycin PATIENT EDUCATION INFORMATION Instructions: Benign Positional Vertigo Follow up: With: Address: When: Follow up with primary care provider Within As needed Comments: Meclizine 25 mg 1 3 x a day for the dizziness Zofran 4 mg ODT 1 to the mouthand let disolve q 6 hours prn N&V Return to the ED as needed DIAGNOSIS Electronically signed by Cassidy Hood Conversion Quality Measurement Specialist Cerner at 07/12/2022 11:38 AM CDT documented in this encounter Plan of Treatment Not on file documented as of this encounter Visit Diagnoses Not on filedocumented in this encounter
--- OUTSIDE RECORDS SUMMARY | 2025-03-10 09:10 | XMS_ITS | Encounter Summary ---
Author Organization [employer] ([place], [place], [place], [place], [place]) Address [address] [place] [address] Care Team Providers Care Ged Instructor Name Role Phone Unavailable Primary Care Provider Unavailabl e Encounter Details Date Type Department Care Team (Late st Contact Info) Description 10/13/2020 Transcribed Document [facility] [place] [facility] [place] [address] ProviderDaniela MD [address] [place] [address] [phone] Social History Tobacco Use Types Packs/Day Years Used Date Smoking Tobacco: Never Assessed Comments Unknown Sex and Gender Information Value Date Recorded Sex Assigned at Not on file Legal Sex Female 10:09 AM CDT Gender Identity Not on file Sexual Orientation Not on file documented as of this encounter Miscellaneous Notes * Cerner Conversion Note - Daniela ProviderMD - 10/13/2020 3:55 AM CDT [facility] ADDRESS [place], [place] [phone] Name:Hayley Hanley Visit Date:10/12/2020 20:44:00 Emergency Department Care Providers: Physician: LEXUS BELTRAN MD Physician: Our doctors and staff appreciate your choice of [facility] for your emergency medical care. Read these instructions carefully. Please call us if you have any questions about your medical problem. [facility] Emergency Department [phone] [facility] Emergency Department [phone] [facility] [place] [facility] Emergency Department [phone] Patient Education Materials Hayley Hanley has been [...] in ear, nose, and throat (ENT) problems (technical education teacher) or a provider who specializes in [...] safe for you. General instructions ??? Take aqts-uxz-wybpyci and prescription medicines only as told by [...] provider. Document Revised: 09/05/2018 Document Reviewed: 09/05/2018 [employer] Patient Education ? 2019 [employer]. STROKE is an EMERGENCY Every Minute Counts [...] x-ray department to pick them up ? [facility] # [phone] ? [facility] # [phone] 1 [facility] # [phone] ? If you had cultures done and [...] quit. ? National Network of Tobacco Cessation GMaeecpyd8-017-ERWG-NOW 1 [place] Lung Association 2 [place] Heart Association [phone] 3 Viktor/Taqueria Jensen [phone] FINANCIAL INFORMATION ?? [facility] provides financial counseling to anyone who requests our services. ?? Emergency Physicians are independently contracted to provide your care. You will receive a bill for the care provided to you by the Physician and/or the Physician Psychologist Research Assistant. This will be a separat e [...] If you cannot reach your doctor, zach rn to the Emergency Department. Patient Visit [...] as recommended Patient Signature / or Patient Program Consultant Provider Signature Date documented in this encounter Plan of Treatment Not on file documented as of this encounter Visit Diagnoses Not on filedocumented in this encounter
--- OUTSIDE RECORDS SUMMARY | 2025-03-10 09:10 | XMS_ITS | Encounter Summary ---
Author Organization [employer] ([place], [place], [place], [place], [place]) Address [address] [place] [address] Care Team Providers Care Browning Processor Name Role Phone Unavailable Primary Care Provider Unavailabl e Encounter Details Date Type Department Care Team (Late st Contact Info) Description 10/13/2020 Transcribed Document [facility] [place] [facility] [place] [address] ProviderDaniela MD [address] [place] [address] [id number] Social History Tobacco Use Types Packs/Day Years Used Date Smoking Tobacco: Never Assessed Comments Unknown Sex and Gender Information Value Date Recorded Sex Assigned at Not on file Legal Sex Female 10:09 AM CDT Gender Identity Not on file Sexual Orientation Not on file documented as of this encounter Miscellaneous Notes * Cerner Conversion Note - Daniela ProviderMD - 10/13/2020 3:38 AM CDT [facility] ADDRESS [place], [place] [phone] Name:Hayley Hanley Visit Date:10/12/2020 20:44:00 Emergency Department Care Providers: Physician: LEXUS BELTRAN MD Physician: Our doctors and staff appreciate your choice of [facility] for your emergency medical care. Read these instructions carefully. Please call us if you have any questions about your medical problem. [facility] Emergency Department [phone] [facility] Emergency Department [phone] [facility] Emergency Department [phone] Patient Education Materials Hayley Hanley has been [...] in ear, nose, and throat (ENT) problems (event marketing specialist) or a provider who specializes in disorders [...] safe for you. General instructions ??? Take tueu-guc-hcrlbds and prescription medicines only as told by [...] provider. Document Revised: 09/05/2018 Document Reviewed: 09/05/2018 [employer]ruit Patient Education ? 2019 [employer]. STROKE is an EMERGENCY Every Minute Counts [...] x-ray department to pick them up ? [facility] # [phone] ? [facility] # [phone] 1 [facility] # [phone] ? If you had cultures done and [...] quit. ? National Network of Tobacco Cessation UHgcfnqsd7-094-WSNK-NOW 1 [place] Lung Association 2 [place] Heart Association [phone] 3 Viktor/Taqueria Jensen [phone] FINANCIAL INFORMATION ?? [facility] provides financial counseling to anyone who requests our services. ?? Emergency Physicians are independently contracted to provide your care. You will receive a bill for the care provided to you by the Physician and/or the Physician Aerial Lineman. This will be a separat e bill [...] as recommended Patient Signature / or Patient Compliance Engineer Products Provider Signature Date Date/Time 10/12/2020 23:38 [facility] Home Medications Name Hayley Hnaley Allergy Info: Benadryl; penicillin; erythromycin Allergy Comment: [...]
--- OUTSIDE RECORDS SUMMARY | 2025-03-10 09:10 | XMS_ITS | Encounter Summary ---
Author Organization [employer] ([place], [place], [place], [place], [place]) Address [address] [place] [address] Care Team Providers Care Glucose And Syrup Weigher Name Role Phone Unavailable Primary Care Provider Unavailabl e Encounter Details Date Type Department Care Team (Late st Contact Info) Description 10/13/2020 Transcribed Document [facility] [place] [address] ProviderDaniela MD [address] [place] [address] [phone] Social History Tobacco Use Types Packs/Day Years Used Date Smoking Tobacco: Never Assessed Comments Unknown Sex and Gender Information Value Date Recorded Sex Assigned at Not on file Legal Sex Female 10:09 AM CDT Gender Identity Not on file Sexual Orientation Not on file documented as of this encounter Miscellaneous Notes * Cerner Conversion Note - Historical ProviderMD - 10/13/2020 3:38 AM CDT [facility] Emergency Department Depart Summary PERSON INFORMATION Name Dior Hanley Age 64 Years 1955 Sex Female Language PCP Marital Status Phone [id number] Visit Id Visit Reason N and/or V Specialty Enc Type Emergency Med Service Referred by Track Group [facility] Discharge Tracking Id [id number] Checkout Checkin 10/12/2020 20:44:00 Acuity 3 - Urgent [facility] Dispo Type Arrival 10/12/2020 20:44:00 Reg Status LOS 000 02:54 Address: ALEJANDRA KENT [address] [place] [address] POWERFORMS PHYSICIAN NOTES VITALS INFORMATION Vital Sign Triage Temp 98.8 Temp Route Pulse Rate 88 Respiratory Rate 18 Blood Pressure 177/ 80 LOCATION INFORMATION Arrival Nurse Unit Room Bed 10/12/2020 20:44:00 [facility] ED Waitroom ([facility]) 10/12/2020 20:47:59 [facility] ED 2 MEDICAL INFORMATION Allergy Info: [...]
--- OUTSIDE RECORDS SUMMARY | 2025-03-10 09:10 | XMS_ITS | Clinical Summary ---
Author Organization [facility] Address [address] [place] [address] Care Team Providers Care Laborer/Key Man Name Role Phone Unavailable Primary Care [...] Active Continuous Glucose Sensor (Dexcom G7 Sensor) [facility] USE 1 SENSOR DIRECTED FOR CONTINUOUS GLUCOSE [...] Encounters Date Type Department Care Team Description 02/20/2025 12:05 PM EST Office Visit [facility] Room E2 [address] [place] [address] Zenaida Whitaker, Shilpi Salas Obstructive sleep apnea (Primary Dx) 02/20/2025 Travel 01/15/2025 1:00 PM EDT Office Visit [facility] Room E214 [address] [place] [address] Zenaida Whitaker, Viridiana Mack Obstructive sleep apnea (Primary Dx) 01/15/2025 Travel 01/09/2025 Telephone [facility] Room [address] [place] [address] Bisi Aguilar 12/26/2024 Community Orders Community Practice [address] [place] [address] Kailyn Hendrickson MD Obstructive sleep apnea (adult) [...] Mass Index 30.67 02/20/2025 12:13 PM EST Plan of Treatment Upcoming Encounters Date Type Department Care Team (Late st Contact Info) Description 03/25/2025 11:15 AM EST Office Visit [place] [facility] Room E2 [address] [place] [address] Zenaida Whitaker, S [address] [place] [address] Health Maintenance Due Date Last Done Comments Dental Oral Exam 1955 Dental Prophylaxis 1955 Dental X-Ray: Bitewings 1955 Dental X-Ray: Full Mouth 1955 [facility]-Bone Density Scan 1955 [facility]-Depression Screening 1955 [facility]-Medicare Annual Wellness (AWV) 1955 [facility]-/Child/Adol SDOH Screenings 1955 [id number] Vaccine (#1) 12/20/1959 Diabetes: Dental Exam 1964 [facility]- SDOH Screenings 1972 [facility]-Adult SDOH Screenings 1972 CT Colonography 12/20/1999 Colonoscopy 12/20/1999 FIT 12/20/1999 FOBT 12/20/1999 Sigmoidoscopy 12/20/1999 [facility]-Breast Cancer Screening 2004 [facility]-Diabetes: Hemoglobin A1C 02/25/2019 08/28/2018 [facility]-Influenza [...] Years or Completed 11/30/2023 [facility]-Obesity Intervention Completed 02/20/2025, 11/2024 HPV Vaccines Aged Out No longer eligi [...] on patient's age to complete this topic Procedures Procedure Name Priority Date/Time Associated Diagnosis Comments [place] ORAL DEVICE/APPLIANCE CUSFAB- IN PROCESS Routine 02/20/2025 12:05 PM EST Obstructive sleep apnea from Last 3 Months Insurance [facility] MEDICARE
--- OUTSIDE RECORDS SUMMARY | 2025-03-10 09:10 | XMS_ITS | Encounter Summary ---
Author Organization Healthcare Address [address] [place] [address] Care Team Providers Care Credit Card Control Clerk Name Role Phone Unavailable Primary Care [...] Description 03/25/2025 11:15 AM EST Office Visit [place] [facility] Room [address] [place] [address] Zenaida Whitaker, DDS [address] [address] documented as of this encounter Visit Diagnoses Not on filedocumented in this encounter Additional Health Concerns Assessment Noted Time A Body Mass Index follow-up plan has been documented for the patient 01/16/2025 9:42 AM EDT documented as of this encounter
--- OUTSIDE RECORDS SUMMARY | 2025-03-10 09:10 | XMS_ITS | Encounter Summary ---
Author Organization [employer] ([place], [place], [place], [place], [place]) Address [address] [place] [address] Care Team Providers Care Critical Care Rn Name Role Phone Unavailable Primary Care Provider Unavailabl e Encounter Details Date Type Department Care Team (Late st Contact Info) Description 10/13/2020 Transcribed Document [facility] [place] Family Medicine [facility] [place] [address] ProviderDaniela MD [address] [place] [address] [id number] Social History Tobacco Use Types Packs/Day Years Used Date Smoking Tobacco: Never Assessed Comments Unknown Sex and Gender Information Value Date Recorded Sex Assigned at Not on file Legal Sex Female 10:09 AM CDT Gender Identity Not on file Sexual Orientation Not on file documented as of this encounter Miscellaneous Notes * Cerner Conversion Note - Daniela ProviderMD - 10/13/2020 3:55 AM CDT [facility] [place], [place] [phone] Name:Hayley Hanley Visit Date:10/12/2020 20:44:00 Emergency Department Care Providers: Physician: LEXUS BELTRAN MD Physician: Our doctors and staff appreciate your choice of [facility] for your emergency medical care. Read these instructions carefully. Please call us if you have any questions about your medical problem. [facility] Emergency Department [phone] [facility] Emergency Department [phone] [facility] Emergency Department [phone] Patient Education Materials Hayley Hanley has been [...] in ear, nose, and throat (ENT) problems (supervisor chassis assembly) or a provider who specializes in disorders [...] safe for you. General instructions ??? Take wavh-iax-cepoeuh and prescription medicines only as told by [...] provider. Document Revised: 09/05/2018 Document Reviewed: 09/05/2018 [employer] Patient Education ? 2019 [employer]. STROKE is an EMERGENCY Every Minute Counts [...] x-ray department to pick them up ? [facility] # [phone] ? [facility] # [phone] 1 [facility] # [phone] ? If you had cultures done and [...] quit. ? National Network of Tobacco Cessation [id number]-UASG-NOW 1 [place] [employer] 2 [place] [employer] 4-566178-7899 3 Viktor/Taqueria Jensen [phone] FINANCIAL INFORMATION ?? [facility] provides financial counseling to anyone who requests our services. ?? Emergency Physicians are independently contracted to provide your care. You will receive a bill for the care provided to you by the Physician and/or the Physician Edging Supervisor. This will be a separat e [...] as recommended Patient Signature / or Patient Head Filter Tank Tender Helper Provider Signature Date Date/Time 10/12/2020 23:55 [facility] [...]
--- OUTSIDE RECORDS SUMMARY | 2025-03-10 09:10 | XMS_ITS | Encounter Summary ---
Author Organization [employer] ([place], [place], [place], [place], [place]) Address [address] [place] [address] Care Team Providers Care Semiconductor Manufacturing Technician Name Role Phone Unavailable Primary Care Provider Unavailabl e Encounter Details Date Type Department Care Team (Late st Contact Info) Description 10/13/2020 Transcribed Document [facility] [place] [facility] [place] [address] ProviderDaniela MD [address] [place] [address] [id number] Social History Tobacco Use Types Packs/Day Years [...] On: 10/12/2020 20:49 EDT by Suzy Montoya Appliance Tester Assessment Triage Date/Time : 10/12/2020 20:49 EDT Suzy Montoya Rn - 10/12/2020 20:49 EDT DCP GENERIC CODE Tracking Acuity : 3 - Urgent BBK Tracking Group : [facility] [place] Suzy Montoya Rn - 10/12/2020 20:49 EDT ED Visit Reason : N and/or V Accompanied By : Family/Spouse/SO Arrival Mode : Wheelchair Chief Complaint : abdominal pain with nausea , onset earlier today, formed stool passed while in ED, denies abdominal pain, emesis x 1 episode Health History Reviewed : Yes Suzy Montoay Rn - 10/12/2020 20:49 EDT Health History [...] Preferred Communication Mode : Verbal Languages : Korean Child/Parent Domestic Concerns : None Threats of Suicide : No Suzy Montoya Rn - 10/12/2020 20:49 EDT Height and Weight Height Source : Stated Height Entry Format : [place] Height, Inches : 65 Inch(Converted to: 5 ft 5 Inch, 165.10 cm) Clinical Height : 165.1 cm Weight Source : Stated Type of Weight Measurement Est : [place] Weight, est lb : 220 lb Estimated Clinical Dosing Weight : 100 kg [place] Body Weight : 57 kg Body Surface [...] mg oral tablet ; Simple Display Line: and ; Catalog Code: warfarin ; Order [...]
--- OUTSIDE RECORDS SUMMARY | 2025-03-10 09:10 | XMS_ITS | Encounter Summary ---
Author Organization Healthcare Address [address] [place] [address] Care Team Providers Care International Operations Manager Name Role Phone Unavailable Primary Care Provider Unavailabl e Encounter Details Date Type Department Care Team (Late st Contact Info) Description 01/09/2025 Telephone [facility] Room [address] [place] [address] Bisi Aguilar [id number] Social History Tobacco Use Types Packs/Day Years [...] Description 03/25/2025 11:15 AM EST Office Visit [facility] Room [address] [place] [address] Zenaida Whitaker, DDS [address] [address] documented as of this encounter Visit Diagnoses Not on filedocumented in this encounter
--- OUTSIDE RECORDS SUMMARY | 2025-03-10 09:11 | XMS_ITS | Encounter Summary ---
Author Organization Healthcare Address [address] [place] [address] Care Team Providers Care Coffee Roaster Name Role Phone Unavailable Primary Care Provider Unavailabl e Encounter Details Date Type Department Care Team (Latest Contact Info) Description 02/20/2025 Travel Social History Tobacco Use Types Packs/Day [...] Description 03/25/2025 11:15 AM EST [facility] Room [address] [place] [address] Zenaida Whitaker, DDS [address] [address] documented as of this encounter Visit Diagnoses Not on filedocumented in this encounter Additional Health Concerns Assessment Noted Time A Body Mass Index follow-up plan has been documented for the patient 02/24/2025 10:53 AM EST documented as of this encounter
--- OUTSIDE RECORDS SUMMARY | 2025-03-10 09:11 | XMS_ITS | Clinical Summary ---
Author Organization [facility] ([place], [place], [place], [place], [place]) Address [address] [place] [address] Care Team Providers Care Store Product Demonstrator Name Role Phone Unavailable Primary Care Provider [...] Treatment Not on file Insurance MATTHEW FITZGERALD [id number] [facility] MEDICARE ADVANTAGE
--- OUTSIDE RECORDS SUMMARY | 2025-03-10 09:11 | XMS_ITS | Clinical Summary ---
[facility] Address [address] [place] [address] Care Team Providers Care Casing In Line Feeder Name Role Phone Sierra Jerry APRN Primary Care Provid er Allergies Active Allergy Reactions Criticality Noted Date Comments Diphenhydramine Other (See Comments) Low 07/17/2018 Hypertension; only intolerant to IV form Cephalexin Itching 04/07/2023 Oktkdzenufz-Gkuhczaza-Xmb ant Unknown - Low Severity 04/07/2023 Insulin [...] taking differently: 8 mg daily every other [id number] Mon and Mon, Reported on 06/18/2020 glucose [...] with insulin Routine general medical examination at [facility] Screening for diabetes mellitus (DM) HEPATITIS C ANTIBODY Routine 08/20/2018 12:08 PM EDT from Last 3 Months or Most Recently Relevant to Health Maintenance Results * POC Glycosylated Hemoglobin (Hb A1C) (08/28/2018 8:28 AM EDT) Hemoglobin A1C 5.2 % [facility] Blood 08/28/2018 8:28 AM EDT Dayo Estes DO POINT OF CARE TEST ORDERABLES Final Result [facility]
[address] [place] [address], * Hepatitis C Antibody (08/20/2018 12:08 PM EDT) Hep C Virus Ab <0.1 0.0 - 0.9 s/co ratio [facility] Comment: Negative: < 0.8 Indeterminate: 0.8 - 0.9 Positive: > 0.9 The CDC recommends that a positive HCV antibody result be followed up with a HCV Nucleic Acid Amplification test (150453). 08/20/2018 12:0 8 PM EDT 08/20/2018 Narrative [facility] ([facility]) - 08/22/2018 5:35 AM EDT Performed at: [address] [place] [address] [id number] Concrete Inspector: Keaton Viramontes PhD, Phone: [phone] Patient Fasting: Y Dayo [employer] [place] DO LAB BLOOD ORDERABLES Final Re sult Performing Organization Address [facility] Co de Phone Number [facility] [address] [place] [address], [place] [phone] [facility] [address] [place] [address], [place] [phone] from Last 3 Months or Most Recently Relevant to Health Maintenance Insurance [facility] MEDICARE [facility] Medicare Advant[employer] PPO Care Teams Casing In Line Feeder Relationship Specialty Start Date End Date Sierra Jerry APRN [address] [place] [address] PCP - General Family Medicine 04/07/23
--- OUTSIDE RECORDS SUMMARY | 2025-03-10 09:11 | XMS_ITS | Referral Summary ---
Author Organization [employer] ([place], [place], [place], [place], [place]) Address [address] [place] [address] Care Team Providers Care Stock Layer Name Role Phone Unavailable Primary Care Provider [...] Treatment Not on file Insurance MATTHEW FITZGERALD [id number] [facility] MEDICARE ADVANTAGE
[2025-03-10 10:55] LABS: PHA INR Fingerstick 2.5 (0.9-1.1)
== END 2025-03-10 10:56 ==
LOC: ACC 08:54
PROVIDERS: PCP Nurse Practitioner Family; Visit Provider Internal Medicine Adolescent Medicine
DX: Z79.01 Long term (current) use of anticoagulants (principal)
CPT/HCPCS: 85610; 99211; G0463